=== PATIENT | male | born 1940 | race Caucasian/White ===

== ENCOUNTER 2017-01-01 12:41 | Outpatient (CLI) | payer MEDICARE ==
[~2017-01-01] VITALS: Ht 167.6 cm; Wt 75.8 kg
[2017-01-01] VITALS (8 sets, daily range): BP systolic 125–155; BP diastolic 66–79; PULSE 62–84; RESP 16–18; TEMP 97.1–97.4; O2SAT 94–97; Ht 167.6 cm; Wt 75.8 kg
[~2017-01-01 12:41] MED LIST: ACET-2890 PO; ALBU8.5H5 IH; AMIO200T2 PO; ANTI1CAP2 PO; BUME1TAB17 PO; CARB1TAB PO; CARV6.252 PO; DABI150C PO; GABA-338 PO; LISI2.5T2 PO; METF-200 PO; POTA-81 PO; ROPI2TAB6 PO; VITA1TAB29 PO
[2017-01-01] MEDS ORDERED: IRON DEXTRAN 100mg/2ml INJECTION IV ONE (13:00)
[2017-01-01] MEDS ORDERED: NORMAL SALINE 500 ML IV SCH (13:30)
[2017-01-01] MEDS ORDERED: IRON DEXTRAN IV ONE (14:30)
[2017-01-01] MEDS ORDERED: NORMAL SALINE IV ONE (14:30)
[2017-01-06] MEDS ORDERED: CARV6.252 PO (12:01)
[2017-01-06] MEDS ORDERED: TRAM50TA4 PO ×2 (12:01→14:32)
[2017-01-06] MEDS ORDERED: METH750T3 PO ×2 (12:01→14:27)
[2017-01-06] MEDS ORDERED: B2/V1TAB (12:01)
[2017-01-06] MEDS ORDERED: CELE200C PO ×2 (12:01→14:27)
[2017-01-06] MEDS ORDERED: SILV20CR2 TOP (12:01)
[2017-01-06] MEDS ORDERED: DABI150C PO (12:01)
[2017-01-06] MEDS ORDERED: ALBU18HF2 ORAL INH (12:01)
[2017-01-06] MEDS ORDERED: AMIO200T2 PO (12:01)
[2017-01-17] MEDS ORDERED: AMIO200T7 PO (11:06)
[2017-01-17] MEDS ORDERED: CARV12.5 PO (11:10)
[2017-01-17] MEDS ORDERED: POTA-81 PO (11:12)
[2017-01-17] MEDS ORDERED: SACU1TAB PO (11:15)
== END 2017-01-01 19:36 | disposition home or self-care (01) ==
LOC: INF.THER 12:41
PROVIDERS: ATTEND Internal Medicine
DX: D50.9 Iron deficiency anemia, unspecified (principal)
CPT/HCPCS: 96365; 96366; 96375; J1750

== ENCOUNTER 2017-01-03 08:09 | Day surgery (SDC) | payer MEDICARE ==
[~2017-01-03] VITALS: Ht 160 cm; Wt 75.9 kg
[2017-01-03] VITALS (23 sets, daily range): BP systolic 93–153; BP diastolic 48–85; PULSE 61–90; RESP 16–23; TEMP 97.1–98.2; O2SAT 90–100; Ht 160 cm; Wt 75.9 kg
[~2017-01-03 08:09] MED LIST changes: -AMIO200T2 PO; -CARV6.252 PO; +LIDOCAINE 1% (10mg/ml) 2ml SDV INJ ONE; +LR 1,000 ML IV SCH
--- OUTSIDE RECORDS SUMMARY | 2017-01-03 08:13 | XMS REPORT | Continuity of Care Document ---
Author Author [facility] Organization [facility] Address Unknown Phone Unavailable Support Name Relationship Address Phone ANAND FERMIN DO Caregiver [address] [place] [address] Unavailable ANAND FERMIN DO Caregiver [address] [place] [address] Unavailable BRANDON AVILES Next Of Kin [address] [place] [address] C Insurance Providers Guarantor Zak Aviles Address [address] [place] [address] C Email DENIED 12-28-16 Payer [employer] Policy Number [id number] Subscriber's Name Zak Aviles Relationship 17 Self Advance Directives Directive Response Recorded Date/Time Advanced Directives Type Living Will 02/17/14 1:50pm Ordered Resuscitation Status Full Code, unverified 02/17/14 2:28pm Resuscitation Documents on File No 02/17/14 1:50pm Problems Active Problems Medical Problem Onset Date Status Atrial fibrillation Unknown Chronic Atrial fibrillation and flutter Unknown Acute Atrial flutter with rapid ventricular response Unknown Acute Bacteremia due to Escherichia coli Unknown Acute CAD (coronary artery disease) Unknown Chronic CHF (congestive heart failure) Unknown Chronic CHF exacerbation Unknown Acute COPD (chronic obstructive pulmonary disease) Unknown Chronic Cardiomyopathy Unknown Chronic Cellulitis, leg Unknown Acute Diabetes Unknown Chronic Essential hypertension Unknown Chronic Hypertension Unknown Chronic Left inguinal hernia Unknown Acute Left inguinal hernia Unknown Acute Mixed hyperlipidemia Unknown Chronic Near syncope Unknown Acute Non-ischemic cardiomyopathy Unknown Chronic Parkinson's disease Unknown Paroxysmal atrial fibrillation Unknown Chronic Sigmoid diverticulosis Unknown Chronic Ventricular tachyarrhythmia Unknown Acute Past Problems Medical Problem Onset Date Anemia Unknown Dehydration Unknown Hypokalemia Unknown Medications Current Home Medications Medication Dose Units Route Directions Days Qty Instructions Start Date Acetaminophen 650 Mg Tablet.er 650 Mg Oral Twice A Day as needed for Pain 11/23/15 Albuterol Sulfate (Proair Hfa) 8.5 Gm Aerosol 2 Puff Inhalation Every 6 Hours as needed for Shortness Of Air 01/09/14 Antiox#10/Om3/Dha/Epa/Lut/Zeax (I-Caps With Lutein-[place] 3 Sfg) 1 Each Capsule 1 Tab Oral Twice A Day 02/16/15 B Complex With Vitamin C (Super B Complex-Vitamin C) 1 Each Tablet 1 Tab Oral Daily 11/02/15 Bumetanide 1 Mg Tablet 2 Mg Oral Twice A Day 30 Days 03/28/16 Carbidopa/Levodopa (Carbidopa-Levo Er 25-100 Tb) 1 Udtab.sa Tablet.sa 1 Tab Oral Three Times A Day 12/26/11 Dabigatran Etexilate Mesylate (Pradaxa) 150 Mg Capsule 150 Mg Oral Twice A Day 12/26/13 Gabapentin 300 Mg Capsule 300 Mg Oral Three Times A Day 11/02/15 Lisinopril 2.5 Mg Tablet 2.5 Mg Oral Daily 03/24/16 Metformin Hcl 500 Mg Tablet 500 Mg Oral Twice Daily With Meals Potassium Chloride 20 Meq Tablet.er 20 Meq Oral Twice Daily With Meals 30 Days 60 Tablet Take 1 tablet, by mouth, two times a day with meals. 03/28/16 Ropinirole Hcl 2 Mg Tablet 2 Mg Oral Three Times A Day 11/02/15 Past Home Medications Medication Directions Ordered Status Bumetanide 1 Mg Tablet, 1 Mg Oral Twice A Day 11/23/15 Discontinued Calcium Carbonate (Tums) 1 Tab.chew Tab.chew, 1 Tab.chew Oral As Needed 05/04 Discontinued Carvedilol 3.125 Mg Tablet, 3.125 Mg Oral Twice Daily With Meals 11/02/15 Discontinued Cefdinir 300 Mg Capsule, 300 Mg Oral Twice A Day 03/28/16 Discontinued Diphenhydramine Hcl (Benadryl) 25 Mg Capsule, 25 Mg Oral Daily 05/04/10 Discontinued Glyburide 5 Mg Tablet, 5 Mg Oral Twice A Day 05/04/10 Discontinued Potassium Chloride (Klor-Con M20) 20 Meq Tablet, 40 Meq Oral Twice Daily With Meals 11/02/15 Discontinued Sitagliptin Phosphate (Januvia) 100 Mg Tablet, 100 Mg Oral 1200 12/26/13 Discontinued Venlafaxine Hcl (Effexor Xr) 37.5 Mg Cap.sr.24h, 37.5 Mg Oral Daily 05/04/10 Discontinued Vision Formula , Daily 05/04/10 Discontinued Social History Social History Problem Response Recorded Date/Time Onset Date Status Chewing Tobacco Status Y 5-11-14 03/05/2014 10:23am Not Applicable Not Applicable Hx Substance Use No 05/04/2016 1:46am Not Applicable Not Applicable Hx Alcohol Use No 05/04/2016 1:46am Not Applicable Not Applicable Has the pt used tobacco in the last 12 months Yes 01/01/2017 3:55pm Not Applicable Not Applicable Tobacco Usage none 03/25/2016 12:37pm Not Applicable Not Applicable Query Response Start Date Stop Date Smoking Status Former smoker Hospital Discharge Instructions No hospital discharge instructions. Plan of Care Discharge Date 01/01/17 7:36pm Prescriptions See Medication Section Functional Status No functional status results. Allergies, Adverse Reactions, Alerts Allergen Type Severity Reaction Status Last Updated Aspirin Adverse Reaction Unknown CAUSES GI BLEEDING Active 01/02/17 Prednisone Allergy Unknown ANXIOUS Active 01/02/17 Ciprofloxacin Adverse Reaction Unknown HYPERACTIVE Active 01/02/17 Dicyclomine Adverse Reaction Severe "MAKES ME VERY NERVOUS AND JITTERY" Active 01/02/17 Immunizations Query Response on File Recorded Date/Time Hx Influenza Vaccination N WILL NOT TAKE THIS VACCINE 01/01/17 3:55pm Hx Pneumococcal Vaccination Y PNEUMONIA VACCINE 11/16 DURING LAST VISIT THIS MONTH 01/01/17 3:55pm Hx Influenza Vaccination N WILL NOT TAKE THIS VACCINE 01/01/17 3:55pm Vital Signs Acute Vital Signs Vital Response Date/Time Temperature (Fahrenheit) 97.3 deg F (96.8 - 99.1) 01/01/2017 5:00pm Temperature (Calculated Celsius) 36.96112 degrees C (36.0 - 37.3) 01/01/2017 5:00pm Pulse Rate (adult) 84 bpm (60 - 100) 01/01/2017 7:02pm Respiratory Rate 16 breaths/min (10 - 20) 01/01/2017 7:02pm O2 Sat by Pulse Oximetry 94 % (90 - 100) 01/01/2017 7:02pm Oxygen Delivery Method Room Air 01/01/2017 7:02pm Blood Pressure 155/79 mm Hg 01/01/2017 7:02pm Blood Pressure Source Automatic Cuff 01/01/2017 7:02pm Height (Feet) 5 feet 01/01/2017 1:20pm Height (Inches) 6.00 inches 01/01/2017 1:20pm Weight (Kilograms) 75.750 kg 01/01/2017 1:20pm Body Mass Index (BMI) 27.0 01/01/2017 1:20pm Results No known relevant diagnostic tests, laboratory data and/or discharge summary. Procedures No known history of procedures. Encounters Encounter Location Arrival/Admit Date Discharge/Depart Date Attending Provider Departed [facility] 01/01/17 12:41pm 01/01/17 7:36pm ANAND FERMIN DO
--- OUTSIDE RECORDS SUMMARY | 2017-01-03 08:13 | XMS REPORT | Continuity of Care Document ---
Author Author [facility] Organization [facility] Address Unknown Phone Unavailable Support Name Relationship Address Phone HARITHA ZELAYA MD Caregiver [facility] [address] [place] [address] [address] [place] [address] ANAND FERMIN DO Caregiver [facility] [address] [place] [address] [address] [place] [phone] BRANDON AVILES Next Of Kin [address] [place], [place] [id number] C Insurance Providers Payer Name Policy Number Subscriber Name Relationship Medicare [id number] Zak Aviles 17 Self UMR [id number] Zak Aviles 18 Self Advance Directives Directive Response Recorded Date/Time Advanced Directives Type Living Will 02/17/14 1:50pm Ordered Resuscitation Status Full Code, unverified 02/17/14 2:28pm Resuscitation Documents on File No 02/17/14 1:50pm Problems Medical Problems Problem Onset Date Status Left inguinal hernia Unknown Active Left inguinal hernia Unknown Active Medications Medication Dose Route Sig Days/Qty Instructions Order Date Discontinued Date Status Acetaminophen 1,000 Mg PO Q6H PRN 05/04/10 Active Diphenhydramine Hcl 25 Mg PO DAILY 05/04/10 12/26/11 Discontinued Venlafaxine Hcl 37.5 Mg PO DAILY 05/04/10 12/26/11 Discontinued Citalopram Hydrobromide 40 Mg PO BEDTIME 05/04/10 Active Glyburide 5 Mg PO TWICE A DAY 05/04/10 12/26/11 Discontinued Lisinopril 20 Mg PO DAILY 05/04/10 Active Pravastatin Sodium 80 Mg PO DAILY 05/04/10 Active [Vision Formula] DAILY 05/04/10 12/26/11 Discontinued Calcium Carbonate 1 Tab.chew PO NEEDED 05/04/10 12/26/11 Discontinued Metformin Hcl 500 Mg PO TWICE A DAY 12/26/11 Active Carbidopa/Levodopa 1 Udtab.sa PO TWICE A DAY 12/26/11 Active Dabigatran Etexilate Mesylate 150 Mg PO BEDTIME 12/26/13 Active Sitagliptin Phosphate 100 Mg PO 1200 12/26/13 02/18/14 Discontinued Roflumilast 500 Mcg PO 1200 12/26/13 Active Vitamin B Complex 1 Cap PO BEDTIME 12/26/13 Active Dextromethorphan Hbr/Chlor-Mal 1 Tab PO THREE TIMES A DAY 12/26/13 Active Labetalol Hcl 100 Mg PO TWICE A DAY 12/26/13 Active Ropinirole Hcl 2 Mg PO THREE TIMES A DAY 12/26/13 Active Tramadol Hcl 50 Mg PO NEEDED 12/26/13 Active Albuterol Sulfate 2 Puff IH QID PRN 25 Qty 01/09/14 Active B2/Vit A,C & E/Lut/Zeaxanth/Mn 1 Tab.sa PO TWICE A DAY 01/09/14 Active Amlodipine Besylate 10 Mg PO DAILY 03/03/14 Active Social History Social History Problem Response Recorded Date/Time Smoking Status Former smoker 03/04/2014 9:22am Chewing Tobacco Status Yes 03/04/2014 9:22am Hx Substance Use No 03/04/2014 9:22am Hx Alcohol Use Y QUIT 25 YRS AGO 03/04/2014 9:22am Has the pt used tobacco in the last 12 months No 03/04/2014 9:22am Hospital Discharge Instructions No hospital discharge instructions. Plan of Care No plan of care. Functional Status No functional status results. Allergies, Adverse Reactions, Alerts Allergen Type Severity Reaction Status Last Updated Aspirin Adverse Reaction Unknown CAUSES GI BLEEDING Active 05/03/10 Prednisone Allergy Unknown ANXIOUS Active 01/09/14 Ciprofloxacin Adverse Reaction Unknown HYPERACTIVE Active 01/09/14 Dicyclomine Adverse Reaction Severe "MAKES ME VERY NERVOUS AND JITTERY" Active 05/04/10 Immunizations Name Given Type Hx Influenza Vaccination N NEVER GETS IT- GETS SICK Historical Hx Pneumococcal Vaccination Y LAST YEAR Historical Hx Influenza Vaccination N NEVER GETS IT- GETS SICK Historical Vital Signs Acute Vital Signs Vital Response Date/Time Temperature (Fahrenheit) 97.0 deg F (96.8 - 99.1) Temperature (Calculated Celsius) 36.52712 degrees C (36.0 - 37.3) Temperature Source Temporal Pulse Rate (adult) 75 bpm (60 - 100) Respiratory Rate 16 breaths/min (10 - 20) O2 Sat by Pulse Oximetry 96 % (90 - 100) Blood Pressure 126/56 mm Hg Blood Pressure Source Automatic Cuff Height 5 ft 6 in Weight 154 lb Body Mass Index 24.0 kg/m^2 Results Test Source Date Result Interp. Ref. Range Comments Protein Electrophoresis Comment March 03, 2014 10:15am - - IgM kappa monoclonal peak identified by immunofixation. Serum Monoclonal Protein March 03, 2014 10:15am 0.4 g/dL PH - Gamma Globulins (%) March 03, 2014 10:15am 14.5 % - Immunoelectrophoresis, no IMQ performed at [facility], [facility] [place] [facility] [place] [address] Product Safety Technical Assistant Emiliana Ray MD Pddz-9-Tnrmmzfm (%) March 03, 2014 10:15am 4.3 % - Uzau-7-Wddwkjdc (%) March 03, 2014 10:15am 6.6 % - Fnkpd-2-Doqkwtqme (%) March 03, 2014 10:15am 12.5 % - Zwxcm-4-Tqqfibbrf (%) March 03, 2014 10:15am 5.1 % - Albumin % (PEP) March 03, 2014 10:15am 57.0 % - Gamma Globulins March 03, 2014 10:15am 0.9 g/dL - Dnkh-5-Siwbovgl March 03, 2014 10:15am 0.3 g/dL - Epdq-3-Cvygjdhn March 03, 2014 10:15am 0.4 g/dL - Zylwc-3-Hafgrrjzt March 03, 2014 10:15am 0.7 g/dL - Msxqv-5-Aknvkpdgv March 03, 2014 10:15am 0.3 g/dL - Albumin (PEP) March 03, 2014 10:15am 3.4 g/dL - Alanine Aminotransferase (ALT/SGPT) January 21, 2014 1:50pm 20 U/L L 21-72 Albumin January 21, 2014 1:50pm 3.7 G/DL N 3.5-5.0 Albumin/Globulin Ratio January 21, 2014 1:50pm 1.2 RATIO N 1.1-2.2 Alkaline Phosphatase January 21, 2014 1:50pm 114 U/L N 38-126 Anion Gap March 04, 2014 9:45am 6 MEQ/L N 5-15 Aspartate Amino Transf (AST/SGOT) January 21, 2014 1:50pm 25 U/L N 17-59 BUN/Creatinine Ratio March 04, 2014 9:45am 22 RATIO N 6-26 Basophils # (Auto) March 04, 2014 9:45am 0.0 T/MM3 N 0-0.2 COMMENT [facility] WILL CALL Basophils (%) (Auto) March 04, 2014 9:45am 0.5 % N 0-2 COMMENT [facility] WILL CALL Blood Urea Nitrogen March 04, 2014 9:45am 13.0 MG/DL N 9-20 Calcium Level March 04, 2014 9:45am 8.4 MG/DL N 8.4-10.2 Calculated Osmolality March 04, 2014 9:45am 273 MOSM/KG N 261-280 Carbon Dioxide Level March 04, 2014 9:45am 32 MEQ/L H 22-30 Chemistry Specimen Hemolysis March 04, 2014 9:45am < 15 0-25 0-25: No Hemolysis.26-70: Slight Hemolysis - can falsely elevate K and Urine Protein. 71-285: Moderate Hemolysis - can falsely elevate K, Troponin I, CA 19-9, PTH, CSF GLucose, and Urine Protein, and can falsely decrease Phenytoin. 286-999: Gross Hemolysis - can falsely elevate K, Troponin I, CA 19-9, PTH, CSF Glucose, and Urine Protine, and can falsely decrease Phenytoin. Recommend specimen recollection. Chloride Level March 04, 2014 9:45am 104 MEQ/L N 98-107 Cholesterol Level October 12, 2008 10:36am 170 MG/DL N 132-199 Cholesterol/HDL Ratio October 12, 2008 10:36am 5.0 RATIO N 0-5.0 Creatinine March 04, 2014 9:45am 0.6 MG/DL L 0.8-1.5 Eosinophils # (Auto) March 04, 2014 9:45am 0.4 T/MM3 N 0-0.5 COMMENT [facility] WILL CALL Eosinophils # (Manual) December 27, 2011 8:50am 0.3 T/MM3 N 0-0.5 COMMENT WILL CALL WHEN PT ADMITTEDCOMMENT WILL CALL WHEN PT IS ADMITTED Eosinophils % (Manual) December 27, 2011 8:50am 4.0 % N 0-4 COMMENT WILL CALL WHEN PT ADMITTEDCOMMENT WILL CALL WHEN PT IS ADMITTED Eosinophils (%) (Auto) March 04, 2014 9:45am 5.6 % H 0-4 COMMENT [facility] WILL CALL Erythrocyte Sedimentation Rate January 21, 2014 1:50pm 36 MM/HR H 0-15 Globulin January 21, 2014 1:50pm 3.0 G/DL N 2.4-3.6 Glomerular Filtration Rate Calc March 04, 2014 9:45am 132 - Glucometer February 18, 2014 7:06am 78 mg/dL N 75-110 Glucose Level March 04, 2014 9:45am 91 MG/DL N 75-110 HDL Cholesterol Direct October 12, 2008 10:36am 32 MG/DL L 40-60 Hematocrit March 04, 2014 9:45am 36.1 % L 41-53 COMMENT [facility] WILL CALL Hemoglobin March 04, 2014 9:45am 11.4 GM/DL L 13.5-17.5 COMMENT [facility] WILL CALL Hemoglobin A1c January 21, 2014 1:50pm 6.2 % N 6-7 <6.0 NON-DIABETIC RANGE6.0-7.0 ADA THERAPEUTIC RANGE >7.0 ACTION SUGGESTED Icterus Index March 04, 2014 9:45am < 2 0-7 Immature Granulocyte # (Auto) March 04, 2014 9:45am 0.01 T/MM3 N 0.00- 0.03 COMMENT [facility] WILL CALL Immature Granulocyte % (Auto) March 04, 2014 9:45am 0.1 % N 0.0-0.5 COMMENT [facility] WILL CALL Immunoglobulin A March 03, 2014 10:15am 120.28 MG/DL N 70-400 Immunoglobulin G March 03, 2014 10:15am 726.83 MG/DL N 700-1600 Immunoglobulin M March 03, 2014 10:15am 436.08 MG/DL H 40-230 LDL Cholesterol, Calculated October 12, 2008 10:36am 91.2 N 66-159 Lab Scanned Report March 03, 2014 11:28am LAB TEST FORM REQUEST - Lymphocytes # (Auto) March 04, 2014 9:45am 1.4 T/MM3 N 1-4.8 COMMENT [facility] WILL CALL Lymphocytes # (Manual) December 27, 2011 8:50am 2.2 T/MM3 N 1-4.8 COMMENT WILL CALL WHEN PT ADMITTEDCOMMENT WILL CALL WHEN PT IS ADMITTED Lymphocytes % (Manual) December 27, 2011 8:50am 26.0 % N 23-45 COMMENT WILL CALL WHEN PT ADMITTEDCOMMENT WILL CALL WHEN PT IS ADMITTED Lymphocytes (%) (Auto) March 04, 2014 9:45am 19.3 % L 23-45 COMMENT [facility] WILL CALL Mean Corpuscular Hemoglobin March 04, 2014 9:45am 29.5 UUG N 26-34 COMMENT [facility] WILL CALL Mean Corpuscular Hemoglobin Concent March 04, 2014 9:45am 31.6 GM/DL N 31 -37 COMMENT [facility] WILL CALL Mean Corpuscular Volume March 04, 2014 9:45am 93.3 UM3 N 80-100 COMMENT [facility] WILL CALL Mean Platelet Volume March 04, 2014 9:45am 10.1 UM3 N 9.4-12.4 COMMENT [facility] WILL CALL Monocytes # (Auto) March 04, 2014 9:45am 0.7 T/MM3 N 0-0.8 COMMENT [facility] WILL CALL Monocytes # (Manual) December 27, 2011 8:50am 1.2 T/MM3 H 0-0.8 COMMENT WILL CALL WHEN PT ADMITTEDCOMMENT WILL CALL WHEN PT IS ADMITTED Monocytes % (Manual) December 27, 2011 8:50am 15.0 % H 0-9.0 COMMENT WILL CALL WHEN PT ADMITTEDCOMMENT WILL CALL WHEN PT IS ADMITTED Monocytes (%) (Auto) March 04, 2014 9:45am 9.4 % H 0-9.0 COMMENT [facility] WILL CALL Neutrophils # (Auto) March 04, 2014 9:45am 4.8 T/MM3 N 1.8-7.7 COMMENT [facility] WILL CALL Neutrophils # (Manual) December 27, 2011 8:50am 4.6 T/MM3 N 1.8-7.7 COMMENT WILL CALL WHEN PT ADMITTEDCOMMENT WILL CALL WHEN PT IS ADMITTED Neutrophils % (Manual) December 27, 2011 8:50am 55.0 % N 33-66 COMMENT WILL CALL WHEN PT ADMITTEDCOMMENT WILL CALL WHEN PT IS ADMITTED Neutrophils (%) (Auto) March 04, 2014 9:45am 65.1 % N 33-66 COMMENT [facility] WILL CALL Platelet Count March 04, 2014 9:45am 257 T/MM3 N 130-400 COMMENT [facility] WILL CALL Potassium Level March 04, 2014 9:45am 3.8 MEQ/L N 3.6-5 Prealbumin January 21, 2014 1:50pm 22.6 MG/DL N 17.6-36.0 Prothromb Time International Ratio January 12, 2014 10:50am 1.06 N 0.86- 1.10 THERAPUTIC RANGE=2.00-3.00 FOR ANTI-THROMBOSIS THERAPUTIC RANGE=2.50- 3.50 FOR IMPLANTED VALVE RDW Standard Deviation March 04, 2014 9:45am 44.0 FL N 36.9-50.2 COMMENT [facility] WILL CALL Red Blood Count March 04, 2014 9:45am 3.87 M/MM3 L 4.50-5.90 COMMENT [facility] WILL CALL Serum Total Protein March 03, 2014 10:15am 5.9 g/dL L - Immunoelectrophoresis, no IMQ performed at [facility], [facility] [place] [address] Product Safety Technical Assistant Emiliana Ray MD Sodium Level March 04, 2014 9:45am 142 MEQ/L N 134-144 Thyroid Stimulating Hormone (TSH) January 21, 2014 1:50pm 0.45 MIU/L L 0.47- 4.68 Total Bilirubin January 21, 2014 1:50pm 0.10 MG/DL L 0.20-1.30 Total Protein January 21, 2014 1:50pm 6.7 G/DL N 6.3-8.2 Triglycerides Level October 12, 2008 10:36am 234 MG/DL H 40-160 Turbidity March 04, 2014 9:45am < 20 0-20 Urinalysis Comment December 26, 2013 12:35pm Microscopic not ind. - Has specimen been collected/obtained? Y Urine Bilirubin December 26, 2013 12:35pm Negative - Has specimen been collected/obtained? Y Urine Blood December 26, 2013 12:35pm Negative - Has specimen been collected/obtained? Y Urine Collection Type December 26, 2013 12:35pm Voided-not cc-midstr - Has specimen been collected/obtained? Y Urine Color December 26, 2013 12:35pm Yellow - Has specimen been collected/obtained? Y Urine Glucose (UA) December 26, 2013 12:35pm 1+ H - Has specimen been collected/obtained? Y Urine Ketones December 26, 2013 12:35pm Trace H - Has specimen been collected/obtained? Y Urine Leukocyte Esterase December 26, 2013 12:35pm Negative - Has specimen been collected/obtained? Y Urine Nitrite December 26, 2013 12:35pm Negative - Has specimen been collected/obtained? Y Urine Protein December 26, 2013 12:35pm Negative - Has specimen been collected/obtained? Y Urine Specific [place] December 26, 2013 12:35pm 1.015 - Has specimen been collected/obtained? Y Urine Turbidity December 26, 2013 12:35pm Sl cloudy - Has specimen been collected/obtained? Y Urine Urobilinogen December 26, 2013 12:35pm 0.2 EU/DL - Has specimen been collected/obtained? Y Urine pH December 26, 2013 12:35pm 8.0 - Has specimen been collected/ obtained? Y VLDL Cholesterol October 12, 2008 10:36am 46.8 MG/DL H 0-28 White Blood Count March 04, 2014 9:45am 7.3 T/MM3 N 4.5-11.0 COMMENT [facility] WILL CALL Procedures Procedure Status Date Provider(s) PRP I/LIZ INIT REDUC >5 YR completed 01/12/14 CASSIDY CABRERA MD, FACS, CWS EGD BIOPSY SINGLE/MULTIPLE completed 02/18/14 ANAND FERMIN DO Colonoscopy completed 03/04/14 ANAND FERMIN DO Encounters Encounter Location Date/Time Registered Clinic [facility] 03/03/14 10:04am Registered Clinic [facility] 02/25/14 6:24am Registered Clinic [facility] 01/21/14 1:44pm Departed Emergency Room [facility] 12/26/13 2:04pm
--- OUTSIDE RECORDS SUMMARY | 2017-01-03 08:13 | XMS REPORT | Summary of Care ---
Author Author Jerman Franco M.D. Organization Unknown Address [address] [place] [address] [place] [address] Phone Unavailable Care Team Providers Care Dirt Contractor Name Role Phone Jerman Franco M.D. Unavailable Unavailable Diomedes Aaron M.D. 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 Periodic limb movement sleep disorder (327.51, G47.61) Status: Active Restless leg (333.94, G25.81) Status: Active COPD (chronic obstructive pulmonary disease) (496, J44.9) Status: Active CHF (congestive heart failure) (428.0, I50.9) Status: Active Malignant neoplasm of prostate (185, C61) Status: Active H/O therapeutic radiation (V15.3, Z92.3) Status: Active Parkinson disease, symptomatic (332.0, G20) Status: Active Benign prostatic hyperplasia with lower urinary tract symptoms (600.01, N40.1) Status: Active Medications Name Dates Details Amlodipine Besy-Benazepril HCl - 10-20 MG Oral Capsule Brock Aaron M.D. Start 11-Dec-2008 Active MetFORMIN HCl - 500 MG Oral Tablet * Refills: 0 Brock Aaron M.D. Start 11-Dec-2008 Active Budesonide 0.5 MG/2ML Inhalation Suspension USE 1 UNIT DOSE VIA NEBULIZER TWO TIMES A DAY * Quantity: 60 Refills: 12 Galen Rivera, Brock Avery Start 11-Dec-2008 Active Mucinex DM 30-600 MG Oral Tablet Extended Release 12 Hour TAKE 1 TO 2 TABLETS EVERY 12 HOURS. * Refills: 0 Brock Aaron M.D. Start 13-Dec-2010 Active Budesonide 0.25 MG/2ML Inhalation Suspension * Quantity: 60 Refills: 12 Brock Aaron M.D. * Start 13-Dec-2010 Active ROPINIRole HCl - 2 MG Oral Tablet TAKE 1 TABLET 3 TIMES DAILY. * Refills: 0 * Start 10-May-2016 Active Gabapentin 300 MG Oral Capsule TAKE 1 CAPSULE 3 TIMES DAILY. * Refills: 0 * Start 10-May-2016 Active Carbidopa-Levodopa 25-100 MG Oral Tablet TAKE 1 TABLET 3 TIMES DAILY. * Refills: 0 * Start 10-May-2016 Active Albuterol Sulfate ER 8 MG Oral Tablet Extended Release 12 Hour TAKE 1 TABLET EVERY 12 HOURS DAILY. * Refills: 0 * Start 10-May-2016 Active Lisinopril 2.5 MG Oral Tablet TAKE 1 TABLET DAILY. * Refills: 0 * Start 10-May-2016 Active Bumetanide 1 MG Oral Tablet TAKE 1 TABLET TWICE DAILY. * Refills: 0 * Start 10-May-2016 Active Carvedilol 3.125 MG Oral Tablet TAKE 1 TABLET TWICE DAILY WITH MEALS. * Refills: 0 * Start 10-May-2016 Active Pradaxa 75 MG Oral Capsule TAKE 1 CAPSULE DAILY. * Refills: 0 * Start 10-May-2016 Active Vitamin B Complex Oral Tablet TAKE 1 TABLET DAILY. * Refills: 0 * Start 10-May-2016 Active ICaps Oral Capsule TAKE 1 CAPSULE DAILY. * Refills: 0 * Start 10-May-2016 Active Arthritis Pain 650 MG Oral Tablet Extended Release Take 2 tablets as needed for pain * Refills: 0 * Start 10-May-2016 Active Allergies and Adverse Reactions Name Dates Details dicyclomine (Allergy) Status: Active metformin (Allergy) Status: Active predniSONE (Allergy) Status: Active Quinolones (Allergy) Status: Active Tetracyclines (Allergy) Status: Active Past Medical History Name Dates Details History of allergic rhinitis (V12.69, Z87.09) Status: Resolved History of atrial fibrillation (V12.59, Z86.79) Status: Resolved History of Bladder neck obstruction (596.0, N32.0) Status: Resolved History of COPD with asthma (493.20, J44.9) Status: Resolved History of dysthymia (V11.8, Z86.59) Status: Resolved History of Erectile dysfunction (607.84, N52.9) Status: Resolved History of esophageal reflux (V12.79, Z87.19) Status: Resolved History of essential hypertension (V12.59, Z86.79) Status: Resolved History of fatigue (V13.89, Z87.898) Status: Resolved History of Fluid retention (276.69, E87.70) Status: Resolved History of hematuria (V13.09, Z87.448) Status: Resolved History of hyperlipidemia (V12.29, Z86.39) Status: Resolved History of Nocturia (788.43, R35.1) Status: Resolved History of osteoarthritis (V13.4, Z87.39) Status: Resolved History of Polyuria (788.42, R35.8) Status: Resolved History of type 2 diabetes mellitus (V12.29, Z86.39) Status: Resolved History of urinary frequency (V13.09, Z87.898) Status: Resolved Procedures Procedure Dates Details History of Repair Of Paraesophageal Hiatus Hernia History of Knee Surgery History of Foot Surgery History of Biopsy Of The Prostate Needle History of Transurethral Resection Of Prostate (TURP) PSA ( PROSTATE SPECIFIC ANTIGEN) 3100 Ordered: 10-May-2016 Immunization Name Dates Details Immunizations not documented Family History Name Dates Details Family history of Asthma (V17.5) Status: Active Social History Name Dates Details - Status: Name Dates Details Former smoker Vital Signs Date Test Result Details 10-May-2016 08:55 BP Systolic 176 mm[Hg] Status: Comments: Location: ; Position: BP Diastolic 64 mm[Hg] Status: Comments: Location: ; Position: Heart Rate 105 /min Status: Comments: Location: ; Height 66 in Status: Weight 160 lb Status: Body Mass Index Calculated 25.82 kg/m2 Status: Body Surface Area Calculated 1.82 m2 Status: Results Date Description Value Details Results not documented Plan of Care Name Dates Details Planned Observations Planned Goals not documented Planned Encounters Appointment; Provider: Jerman Franco M.D. On 16-May-2017 09:00 Interventions Provided Medication Changes* Citalopram Hydrobromide 40 MG Oral Tablet - Stop * ClonazePAM 1 MG Oral Tablet - Stop * GlyBURIDE 5 MG Oral Tablet - Stop * Meloxicam 15 MG Oral Tablet - Stop * Naproxen 500 MG Oral Tablet - Stop Labs/Procedures/Imaging* PSA ( PROSTATE SPECIFIC ANTIGEN) 3100; To be Done: 10 May 2016 Instructions Name Dates Details Instructions not documented Encounters Appointment; Jerman Frnaco M.D. Encounter Diagnosis: Problem not documented On 10-May-2016 08:45
--- OUTSIDE RECORDS SUMMARY | 2017-01-03 08:13 | XMS REPORT | Continuity of Care Document ---
Author Author [facility] Organization [facility] Address Unknown Phone Unavailable Support Name Relationship Address Phone JULIANA BLACK MD Caregiver [address] [place] [address] [place] [address] Unavailable JULIANA BLACK MD Caregiver [address] [place] [address] [place] [address] Unavailable HARITHA ZELAYA MD Caregiver [address] [place] [address] [place] [address] Unavailable TATIANA CARVAJAL DO Caregiver [address] [place] [address] [place] [address] Unavailable BRANDON AVILES Next Of Kin [address] [place] [address] C Insurance Providers Guarantor Zak Aviles Address [address] [place] [address] C Email DENIED/NO TO PT [facility] Payer [employer] Policy Number [id number] Subscriber's Name Zak Aviles Relationship 17 Self Advance Directives Directive Response Recorded Date/Time Advanced Directives Type Living Will 02/17/14 1:50pm Ordered Resuscitation Status Full Code, unverified 02/17/14 2:28pm Resuscitation Documents on File No 02/17/14 1:50pm DPOA for Healthcare Only No 03/24/16 7:04pm Living Will Yes 03/24/16 7:04pm Problems Active Problems Medical Problem Onset Date [...] disease Unknown Paroxysmal atrial fibrillation Unknown Chronic Ventricular tachyarrhythmia Unknown Acute Past Problems Medical Problem Onset Date Anemia Unknown Hypokalemia Unknown Medications Current Home Medications Medication Dose Units Route Directions Days Qty Instructions Start Date Acetaminophen 650 Mg Tablet.er 650 Mg Oral Twice A Day as needed for Pain 11/23/15 Albuterol Sulfate (Proair Hfa) 8.5 Gm Aerosol 2 Puff Inhalation Every 6 Hours as needed for Shortness Of Air 01/09/14 Amiodarone Hcl 200 Mg Tablet 200 Mg Oral Daily 03/24/16 Antiox#10/Om3/Dha/Epa/Lut/Zeax (I-Caps With Lutein-[place] 3 Sfg) 1 Each Capsule 1 Tab Oral Twice A Day 02/16/15 B Complex With Vitamin C (Super B Complex-Vitamin C) 1 Each Tablet 1 Tab Oral Daily 11/02/15 Bumetanide 1 Mg Tablet 2 Mg Oral Twice A Day 30 Days 03/28/16 Carbidopa/Levodopa (Carbidopa-Levo Er 25-100 Tb) 1 Udtab.sa Tablet.sa 1 Tab Oral Three Times A Day 12/26/11 Carvedilol 6.25 Mg Tablet 6.25 Mg Oral Twice A Day 11/23/15 Cefdinir 300 Mg Capsule 300 Mg Oral Twice A Day 7 Days 14 Capsule Dabigatran Etexilate Mesylate (Pradaxa) 150 Mg Capsule [...] Oral Twice Daily With Meals 11/02/15 Discontinued Diphenhydramine Hcl (Benadryl) 25 Mg Capsule, [...] Onset Date Status Chewing Tobacco Status Y 01-11-14 03/05/2014 10:23am Not Applicable Not Applicable Hx Substance Use No 03/24/2016 4:00pm Not Applicable Not Applicable Hx Alcohol Use No 03/24/2016 4:00pm Not Applicable Not Applicable Has the pt used tobacco in the last 12 months Yes 03/24/2016 7:06pm Not Applicable Not Applicable Tobacco Usage none 03/25/2016 12:37pm Not Applicable Not Applicable Query Response Start Date Stop Date Smoking Status Former smoker Hospital Discharge Instructions Instructions: Care Instructions: Reason for Hospitalization: Weakness, hypokalemia I was in the hospital because (patient own words): shaking, falling down, confused Discharge Diet: regular, fluid restriction 1500 cc/day Discharge Activity: as tolerated Follow Up Appointments: [address] Zelaya 04/04 1:[address] Hinojosa 04/25 12:00 Pending Lab / Results: No Pending Lab Patient Instructions: n/a Wound/Incision Care: n/a Durable Medical Equipment: n/a Notify Physician If: worsening weakness, fever > 101 degrees, altered mental status General Information: n/a Condition at time of discharge: Good Plan of Care Discharge Date 03/28/16 3:40pm Disposition 01 DISCHARGED HOME, SELF-CARE Instructions/Education Provided [facility] Congestive Heart Failure Anemia Prescriptions See Medication Section Care Plan and Goals See Discharge Instructions Section Functional Status Query Response Date Recorded Mobility Status Ambulatory w/assist March 28, 2016 3:13pm Assistive Devices Cane March 28, 2016 3:13pm Activity Limitations Weakness Fatigue March 28, 2016 3:13pm Feeding Ability Independent March 28, 2016 3:13pm Toileting Ability Assist March 28, 2016 3:13pm Grooming Ability Assist March 28, 2016 3:13pm Dressing Ability Assist March 28, 2016 3:13pm Driving Ability Dependent March 28, 2016 3:13pm Housework Ability Assist March 28, 2016 3:13pm Meal Preparation Ability Assist March 28, 2016 3:13pm Stair Climbing Ability Assist March 28, 2016 3:13pm Ability to complete ADL's impeded by Impaired Mobility March 28, 2016 3:13pm Cognitive/Perceptual Impairments Impaired vision Acute confusion March 28, 2016 3:13pm Visual Assistive Devices Glasses With patient March 27, 2016 7:16pm Preferred Method of Learning Demonstration Listening Hands on March 27, 2016 7:16pm Allergies, Adverse Reactions, Alerts Allergen Type Severity Reaction Status Last Updated Aspirin Adverse Reaction Unknown CAUSES GI BLEEDING Active 11/02/15 Prednisone Allergy Unknown ANXIOUS Active 11/02/15 Ciprofloxacin Adverse Reaction Unknown HYPERACTIVE Active 11/02/15 Dicyclomine Adverse Reaction Severe "MAKES ME VERY NERVOUS AND JITTERY" Active 11/02/15 Immunizations Query Response on File Recorded Date/Time Hx Influenza Vaccination N WILL NOT TAKE THIS VACCINE 03/24/16 7:06pm Hx Pneumococcal Vaccination Y PNEUMONIA VACCINE 11/16 DURING LAST VISIT THIS MONTH 03/24/16 7:06pm Hx Influenza Vaccination N WILL NOT TAKE THIS VACCINE 03/24/16 7:06pm Vital Signs Acute Vital Signs Vital Response Date/Time Temperature (Fahrenheit) 96.6 deg F (96.8 - 99.1) 03/28/2016 7:48am Temperature (Calculated Celsius) 35.54407 degrees C (36.0 - 37.3) 03/28/2016 7:48am Pulse Rate (adult) 67 bpm (60 - 100) 03/28/2016 7:48am Respiratory Rate 20 breaths/min (10 - 20) 03/28/2016 7:48am O2 Sat by Pulse Oximetry 95 % (90 - 100) 03/28/2016 7:48am Oxygen Delivery Method Room Air 03/28/2016 7:48am Blood Pressure 140/69 mm Hg 03/28/2016 7:48am Blood Pressure Source Automatic Cuff 03/28/2016 7:48am Height (Feet) 5 feet 03/27/2016 5:17pm Height (Inches) 6.00 inches 03/27/2016 5:17pm Weight (Kilograms) 76.700 kg 03/28/2016 7:48am Body Mass Index (BMI) 28.2 03/24/2016 7:02pm Results Laboratory Results Test Name Result Units Flags Reference Collection Date/Time Result Date/ Time Comments White Blood Count 3.8 T/MM3 D L 4.5-11.0 03/28/2016 5:05am 03/28/2016 5: 27am Red Blood Count 3.39 M/MM3 L 4.50-5.90 03/28/2016 5:05am 03/28/2016 5: 27am Hemoglobin 9.7 GM/DL L 13.5-17.5 03/28/2016 5:05am 03/28/2016 5:27am Hematocrit 32.0 % L 41-53 03/28/2016 5:05am 03/28/2016 5:27am Mean Corpuscular Volume 94.4 UM3 80-100 03/28/2016 5:05am 03/28/2016 5: 27am Mean Corpuscular Hemoglobin 28.6 UUG 26-34 03/28/2016 5:05am 2015 5:27am Mean Corpuscular Hemoglobin Concent 30.3 GM/DL L 31-37 03/28/2016 5:05am 03/28/2016 5:27am RDW Standard Deviation 47.9 FL 36.9-50.2 03/28/2016 5:05am 03/28/2016 5 :27am Platelet Count 187 T/MM3 130-400 03/28/2016 5:05am 03/28/2016 5:27am Mean Platelet Volume 9.8 UM3 9.4-12.4 03/28/2016 5:05am 03/28/2016 5: 27am Neutrophils (%) (Auto) 43.2 % 33-66 03/28/2016 5:05am 03/28/2016 5: 27am Lymphocytes (%) (Auto) 33.9 % 23-45 03/28/2016 5:05am 03/28/2016 5: 27am Monocytes (%) (Auto) 19.7 % H 0-9.0 03/28/2016 5:05am 03/28/2016 5:27am Eosinophils (%) (Auto) 1.9 % 0-4 03/28/2016 5:05am 03/28/2016 5:27am Basophils (%) (Auto) 0.8 % 0-2 03/28/2016 5:05am 03/28/2016 5:27am Immature Granulocyte % (Auto) 0.5 % 0.0-0.5 03/28/2016 5:05am 2015 5:27am Absolute Neutrophils (auto) 1.6 T/MM3 L 1.8-7.7 03/28/2016 5:05am 2015 5:27am Absolute Lymphocytes (auto) 1.3 T/MM3 1-4.8 03/28/2016 5:05am 2015 5:27am Absolute Monocytes (auto) 0.7 T/MM3 0-0.8 03/28/2016 5:05am 03/28/2016 5:27am Absolute Eosinophils (auto) 0.1 T/MM3 0-0.5 03/28/2016 5:05am 2015 5:27am Absolute Basophils (auto) 0.0 T/MM3 0-0.2 03/28/2016 5:05am 03/28/2016 5:27am Absolute Immature Granulocyte (auto 0.02 T/MM3 0.00-0.03 03/28/2016 5: 05am 03/28/2016 5:27am Icterus Index < 2 0-7 03/28/2016 5:05am 03/28/2016 5:29am Chemistry Specimen Hemolysis < 15 0-25 03/28/2016 5:0503/28/2016 5 :29am 0-25: Specimen Exhibited No Hemolysis. Turbidity < 20 0-20 03/28/2016 5:05am 03/28/2016 5:29am Sodium Level 142 MEQ/L 134-144 03/28/2016 5:05am 03/28/2016 5:29am Potassium Level 4.0 MEQ/L 3.6-5 03/28/2016 5:05am 03/28/2016 5:29am Chloride Level 98 MEQ/L 98-107 03/28/2016 5:05am 03/28/2016 5:29am Carbon Dioxide Level 33 MEQ/L H 22-30 03/28/2016 5:05am 03/28/2016 5: 29am Anion Gap 11 MEQ/L 5-15 03/28/2016 5:05am 03/28/2016 5:29am Blood Urea Nitrogen 15.0 MG/DL 9-20 03/28/2016 5:0503/28/2016 5: 29am Creatinine 0.9 MG/DL 0.8-1.5 03/28/2016 5:0503/28/2016 5:29am BUN/Creatinine Ratio 17 RATIO 6-26 03/28/2016 5:0503/28/2016 5:29am Glomerular Filtration Rate Calc 82 03/28/2016 5:0503/28/2016 5: 29am Glucose Level 135 MG/DL H 75-110 03/28/2016 5:0503/28/2016 5:29am Calculated Osmolality 276 MOSM/KG 261-280 03/28/2016 5:0503/28/2016 5:29am Calcium Level 8.3 MG/DL L 8.4-10.2 03/28/2016 5:0503/28/2016 5:29am Total Bilirubin 0.40 MG/DL 0.20-1.30 03/25/2016 4:42am 03/25/2016 5: 28am Alkaline Phosphatase 127 U/L H 38-126 03/25/2016 4:42am 03/25/2016 5: 28am Total Protein 6.1 G/DL L 6.3-8.2 03/25/2016 4:42am 03/25/2016 5:28am Albumin 3.1 G/DL L 3.5-5.0 03/25/2016 4:42am 03/25/2016 5:28am Globulin 3.0 G/DL 2.4-3.6 03/25/2016 4:42am 03/25/2016 5:28am Albumin/Globulin Ratio 1.0 RATIO L 1.1-2.2 03/25/2016 4:42am 03/25/2016 5:28am Aspartate Amino Transf (AST/SGOT) 23 U/L 17-59 03/25/2016 4:42am 2015 5:28am Alanine Aminotransferase (ALT/SGPT) 15 U/L L 21-72 03/25/2016 4:42am 5:28am Troponin I 0.042 ng/ml 0-0.12 03/25/2016 4:42am 03/25/2016 5:35am Troponin values with a difference of 55% increase from orginal troponin value represent a true biological DELTA value. (%increase Calc=Orginal Troponin value, divided by subsequent Troponin value, multiplied by 100) Magnesium Level 1.8 MG/DL 1.6-2.3 03/27/2016 4:25am 03/27/2016 5:18am Plasma Lactate 1.5 MMOL/L 0.6-2.2 03/24/2016 4:35pm 03/24/2016 4:58pm Iron Level 51 UG/DL 49-181 03/25/2016 4:42am 03/27/2016 3:14am Vitamin B12 Level 323 PG/ML 239-931 03/25/2016 4:42am 03/27/2016 3: 14am Thyroid Stimulating Hormone (TSH) 2.07 MIU/L 0.47-4.68 03/25/2016 4: 42am 03/25/2016 5:54am Stool Occult Blood NEGATIVE 03/26/2016 2:04pm 03/26/2016 2:12pm Stool Campylobacter PCR NEGATIVE NEGATIVE 03/26/2016 1:21pm 2015 4:54pm Stool C. difficile Toxin (PCR) NEGATIVE NEGATIVE 03/26/2016 1: 4:54pm Stool Plesiomonas shigelloides PCR NEGATIVE NEGATIVE 03/26/2016 1: pm 03/26/2016 4:54pm Stool Salmonella PCR NEGATIVE NEGATIVE 03/26/2016 1:03/26/2016 4 :54pm Stool Vibrio (PCR) NEGATIVE NEGATIVE 03/26/2016 1:03/26/2016 4: 54pm Stool Vibrio cholera (PCR) NEGATIVE NEGATIVE 03/26/2016 1:2015 4:54pm Stool Yersinia enterocolitica (PCR) NEGATIVE NEGATIVE 03/26/2016 1: 03/26/2016 4:54pm Stool Enteroaggregative E. coli PCR NEGATIVE NEGATIVE 03/26/2016 1: 03/26/2016 4:54pm Stool Enteropathogenic E. coli (PCR DETECTED A NEGATIVE 03/26/2016 1: 03/26/2016 4:54pm Stool Enterotoxigenic Ecoli PCR NEGATIVE NEGATIVE 03/26/2016 1:03/26/2016 4:54pm Stool E. coli Shiga Toxins NEGATIVE NEGATIVE 03/26/2016 1:2015 4:54pm Stool E coli O157 PCR N/A NA/NEG 03/26/2016 1:03/26/2016 4:54pm Stool Shigella/EIEC (PCR) NEGATIVE NEGATIVE 03/26/2016 1:2015 4:54pm Stool Cryptosporidium PCR NEGATIVE NEGATIVE 03/26/2016 1:pm 2015 4:54pm Stool Cyclospora species Detection NEGATIVE NEGATIVE 03/26/2016 1: 03/26/2016 4:54pm Stool Entamoeba (PCR) NEGATIVE NEGATIVE 03/26/2016 1:pm 03/26/2016 4:54pm Stool Giardia Lamblia PCR NEGATIVE NEGATIVE 03/26/2016 1:pm 2015 4:54pm Stool Adenovirus (PCR) NEGATIVE NEGATIVE 03/26/2016 1:2015 4:54pm Stool Astrovirus (PCR) NEGATIVE NEGATIVE 03/26/2016 1:pm 2015 4:54pm Stool Norovirus GI/GII PCR NEGATIVE NEGATIVE 03/26/2016 1:2015 4:54pm Stool Rotavirus A PCR NEGATIVE NEGATIVE 03/26/2016 1:03/26/2016 4:54pm Stool Sapovirus (PCR) NEGATIVE NEGATIVE 03/26/2016 1:pm 03/26/2016 4:54pm Urine Collection Type CLEANCATCH-MIDSTREAM 03/24/2016 6:30pm 2015 6:52pm Urine Color YELLOW YELLOW 03/24/2016 6:30pm 03/24/2016 6:52pm Urine Turbidity CLEAR CLEAR 03/24/2016 6:30pm 03/24/2016 6:52pm Urine Specific [place] <=1.005 L 1.015-1.025 03/24/2016 6:30pm 2015 6:52pm Urine pH 7.0 5.0-8.0 03/24/2016 6:30pm 03/24/2016 6:52pm Urine Leukocyte Esterase NEGATIVE NEGATIVE 03/24/2016 6:30pm 2015 6:52pm Urine Nitrite NEGATIVE NEGATIVE 03/24/2016 6:30pm 03/24/2016 6:52pm Urine Protein NEGATIVE NEGATIVE 03/24/2016 6:30pm 03/24/2016 6:52pm Urine Glucose (UA) TRACE A NEGATIVE 03/24/2016 6:30pm 03/24/2016 6: 52pm Urine Ketones NEGATIVE NEGATIVE 03/24/2016 6:30pm 03/24/2016 6:52pm Urine Urobilinogen 0.2 EU/DL NORMAL 03/24/2016 6:30pm 03/24/2016 6: 52pm Urine Bilirubin NEGATIVE NEGATIVE 03/24/2016 6:30pm 03/24/2016 6: 52pm Urine Blood NEGATIVE NEGATIVE 03/24/2016 6:30pm 03/24/2016 6:52pm Urinalysis Comment MICROSCOPIC NOT IND. 03/24/2016 6:30pm 2015 6:52pm Glucometer 260 mg/dL H 75-110 03/28/2016 11:21am 03/28/2016 11:24am Microbiology Results Procedure Source Organism/Result Collection Date/Time Result Date/Time Result Status Blood Culture Peripheral/Iv Start NO GROWTH AFTER 48 HOURS 03/26/2016 1: 49pm 03/28/2016 1:56pm Preliminary Name: ZAK AVILES Unit #: [id number] : 1940 Sex: M Admit Date: 03/25/16 Loc / Svc: MED Discharge Date: DIAGNOSTIC IMAGING REPORT Report #: [id number] [facility] G[facility] [place] Indication: ITS.REASON: e coli bacteremia, negative urinalysis PROCEDURE: CT ABD/PELVIS W/CONTRAST ONLY: Encounter: Initial Comparison: 02/25/2014 Technique: Axial CT images were performed through the abdomen and pelvis after the administration of intravenous contrast. Coronal and sagittal two-dimensional reformats. Contrast: Omnipaque 300 100 mL Findings: Lung bases: Subtle patchy areas of air trapping in both lung bases. Nodular pleural thickening left lateral base. No pleural effusion. Small 3 cm hiatal hernia with surgical clips. Liver: Unremarkable Spleen: Unremarkable. Gallbladder: Cholelithiasis. Pancreas: Unremarkable, no ductal dilatation. Adrenal glands: Unremarkable. Kidneys: No hydronephrosis or nephrolithiasis. Small cortical cyst left kidney posterior midpole. Aorta: Unremarkable with no aneurysmal change. Lymph nodes: Several small scattered periaortic lymph nodes but no true adenopathy. Stomach and bowel loops: 3 cm hiatal hernia. No bowel distention or air-fluid levels. Moderate stool throughout colon. Prominent diverticular change of sigmoid. Appendix not enlarged. CT PELVIS: Urinary bladder: Unremarkable although not well distended. Prostate: Unremarkable. Osseous structures: Marked disc space narrowed throughout lower dorsal and lumbar spine. No compression deformity or spondylolisthesis. IMPRESSION: 1. Fecal stasis. 2. No small bowel distention or air-fluid levels. 3. Cholelithiasis but no CT evidence of acute biliary disease or distention. 4. Small cortical cyst left kidney posterior midpole. 5. Small hiatal hernia. The above report concurs with the initial preliminary report provided by Rafa at 1:33 PM. . Procedures Procedure Status Date Provider(s) X-RAY EXAM OF SHOULDER Completed 01/27/16 Encounters Encounter Location Arrival/Admit Date Discharge/Depart Date Attending Provider Discharged Inpatient [facility] 03/25/16 12:25pm 03/28/16 3:40pm JULIANA BLACK MD Registered Clinic [facility] 01/27/16 12:03pm HARITHA ZELAYA MD
--- OUTSIDE RECORDS SUMMARY | 2017-01-03 08:13 | XMS REPORT | Continuity of Care Document ---
Author Author [facility] Organization [facility] Address Unknown Phone Unavailable Support Name Relationship Address Phone HARITHA ZELAYA MD Caregiver [facility] [address] [address] [place] [address] CASSIDY CABRERA FACS, MD Caregiver [address] [place] [address] [place] [address] [phone] BRANDON AVILES Next Of Kin [address] [place], [place] [address] C Insurance Providers Payer Name Policy Number Subscriber Name Relationship Medicare [id number] Zak Aviles 18 Self UMR [id number] Zak Aviles 18 Self Advance Directives Directive [...] Albuterol Sulfate 2 Puff IH QID PRN 01/09/14 Active B2/Vit A,C & E/Lut/Zeaxanth/Mn 1 Tab.sa PO TWICE A DAY 01/09/14 Active Amlodipine Besylate 10 Mg PO DAILY 03/03/14 Active Social History Social History Problem Response Recorded Date/Time Smoking Status Former smoker 03/05/2014 10:23am Chewing Tobacco Status Y 01-11-14 03/05/2014 10:23am Hx Substance Use No 03/05/2014 10:23am Hx Alcohol Use N SOBER FOR 25 YEARS 03/05/2014 10:23am Has the pt used tobacco in the last 12 months Yes 03/05/2014 10:23am Hospital Discharge Instructions No hospital discharge instructions. [...] Vital Signs Vital Response Date/Time Temperature (Fahrenheit) 97.8 deg F (96.8 - 99.1) Temperature (Calculated Celsius) 36.03066 degrees C (36.0 - 37.3) Temperature Source Temporal Pulse Rate (adult) 70 bpm (60 - 100) Respiratory Rate 16 breaths/min (10 - 20) O2 Sat by Pulse Oximetry 94 % (90 - 100) Blood Pressure 132/53 mm Hg Blood Pressure Source Automatic Cuff Height 5 ft 6 in Weight 154 lb Body Mass Index 24.0 kg/m^2 Results Test Source Date Result Interp. Ref. Range Comments Alanine Aminotransferase (ALT/SGPT) January 21, 2014 1:50pm 20 U/L L 21-72 Albumin January 21, 2014 1:50pm 3.7 G/DL N 3.5-5.0 Albumin % (PEP) March 03, 2014 10:15am 57.0 % - Albumin (PEP) March 03, 2014 10:15am 3.4 g/dL - Albumin/Globulin Ratio January 21, 2014 1:50pm 1.2 RATIO N 1.1-2.2 Alkaline Phosphatase January 21, 2014 1:50pm 114 U/L N 38-126 Yjroe-4-Pniyufehw March 03, 2014 10:15am 0.3 g/dL - Sxurx-9-Wwxtoaplt (%) March 03, 2014 10:15am 5.1 % - Ogeyg-9-Kqfobyiei March 03, 2014 10:15am 0.7 g/dL - Tcjir-0-Fpigzsonr (%) March 03, 2014 10:15am 12.5 % - Anion Gap March 04, 2014 9:45am 6 MEQ/L N 5-15 Aspartate Amino Transf (AST/SGOT) January 21, 2014 1:50pm 25 U/L N 17-59 BUN/Creatinine Ratio March 04, 2014 9:45am 22 RATIO N 6-26 Basophils # (Auto) March 04, 2014 9:45am 0.0 T/MM3 N 0-0.2 COMMENT [facility] WILL CALL Basophils (%) (Auto) March 04, 2014 9:45am 0.5 % N 0-2 COMMENT [facility] WILL CALL Kwvm-8-Japwgbcm March 03, 2014 10:15am 0.4 g/dL - Nlei-1-Cmfuwbnn (%) March 03, 2014 10:15am 6.6 % - Kuew-7-Xxbzoqmg March 03, 2014 10:15am 0.3 g/dL - Jfvb-7-Fnqavqfq (%) March 03, 2014 10:15am 4.3 % - Blood Urea Nitrogen March 04, 2014 9:45am [...] 21, 2014 1:50pm 36 MM/HR H 0-15 Gamma Globulins March 03, 2014 10:15am 0.9 g/dL - Gamma Globulins (%) March 03, 2014 10:15am 14.5 % - Immunoelectrophoresis, no IMQ performed at [facility] Reference Lab, [address] [place] [address] Swaging Machine Operator Emiliana Ray MD Globulin January 21, 2014 1:50pm 3.0 G/DL N 2.4-3.6 Glomerular Filtration Rate Calc March 04, 2014 9:45am 132 - Glucometer March 05, 2014 10:32am 125 mg/dL H 75-110 Glucose Level March 04, 2014 9:45am [...] 21, 2014 1:50pm 22.6 MG/DL N 17.6-36.0 Protein Electrophoresis Comment March 03, 2014 10:15am - - IgM kappa monoclonal peak identified by immunofixation. Prothromb Time International Ratio January 12, 2014 10:50am 1.06 N 0.86- 1.10 THERAPUTIC RANGE=2.00-3.00 FOR ANTI-THROMBOSIS THERAPUTIC RANGE=2.50- 3.50 FOR IMPLANTED VALVE RDW Standard Deviation March 04, 2014 9:45am 44.0 FL N 36.9-50.2 COMMENT [facility] WILL CALL Red Blood Count March 04, 2014 9:45am 3.87 M/MM3 L 4.50-5.90 COMMENT [facility] WILL CALL Serum Monoclonal Protein March 03, 2014 10:15am 0.4 g/dL PH - Serum Total Protein March 03, 2014 10:15am 5.9 g/dL L - Immunoelectrophoresis, no IMQ performed at [facility] Reference Lab, [facility] [place] [address] Swaging Machine Operator Emiliana Ray MD Sodium Level March 04, [...] Has specimen been collected/obtained? Y Urine Specific [place] December 26, 2013 12:35pm 1.015 - Has [...] DO Colonoscopy completed 03/04/14 ANAND FERMIN DO Inguinal hernia repair completed 03/05/14 CASSIDY CABRERA MD, FACS, CWS Encounters Encounter Location Date/Time Registered [facility] 03/03/14 10:04am Registered Clinic [facility] 02/25/14 6:24am Registered [facility] 01/21/14 1:44pm Departed Emergency Room [facility] 12/26/13 2:04pm
--- OUTSIDE RECORDS SUMMARY | 2017-01-03 08:13 | XMS REPORT | Continuity of Care Document ---
Author Author [facility] Organization [facility] Address Unknown Phone Unavailable Support Name Relationship Address Phone JHONY LAWRENCE MD Caregiver [address] [place] [address] [place] [address] Unavailable ANAND FERMIN DO Caregiver [address] [place] [address] Unavailable BRANDON ESCALANTE Next Of Kin [address] [place] [address] C Insurance Providers Guarantor Zak Escalante Address [address] [place] [address] C Email DENIED/NO TO PT [place] Payer [employer]ana Policy Number [id number] Subscriber's Name Zak Escalante Relationship 18 Self Advance Directives Directive Response [...] Mg Oral Daily 03/24/16 Antiox#10/Om3/Dha/Epa/Lut/Zeax (I-Caps With Lutein-[place] 3 Sfg) 1 Each Capsule 1 Tab [...] 6.25 Mg Oral Twice A Day 11/23/15 Dabigatran Etexilate Mesylate (Pradaxa) 150 Mg Capsule [...] Smoking Status Former smoker Hospital Discharge Instructions Current inpatient/outpatient. Discharge instructions are currently unavailable. Plan of Care Current inpatient/outpatient. The plan of care is currently unavailable Functional Status No functional status results. Allergies, [...] Signs Acute Vital Signs Vital Response Date/Time Height (Feet) 5 feet 07/10/2016 9:00am Height (Inches) 4.50 inches 07/10/2016 9:00am Weight (Kilograms) 79.000 kg 07/10/2016 9:00am Height 5 ft 4.5 in 07/10/2016 9:00am Weight 174.17 lb 07/10/2016 9:00am Body Mass Index 29.0 kg/m^2 07/10/2016 9:00am Results No known relevant diagnostic tests, laboratory data and/or discharge summary. Procedures Procedure Status Date Provider(s) CINE/VID X-RAY THROAT/ESOPH Completed 06/26/16 MOTION FLUOROSCOPY/SWALLOW Completed 06/26/16 ST SWALLOW CURRENT STATUS Completed 06/26/16 ST SWALLOW GOAL STATUS Completed 06/26/16 ST SWALLOW DISCHARGE STATUS Completed 06/26/16 Encounters Encounter Location Arrival/Admit Date Discharge/Depart Date Attending Provider Registered [facility] 07/10/16 8:40am JHONY LAWRENCE MD Discharged [facility] 07/03/16 9:30am 08/20/16 11:59pm ARIA PURCELL Registered Clinic [facility] 06/26/16 8:08am ARIA PURCELL
--- OUTSIDE RECORDS SUMMARY | 2017-01-03 08:13 | XMS REPORT | Summary of Care ---
Author Author Jerman Franco M.D. Unknown Address [address] [place] [address] [place] [address] Phone Unavailable Care Team Providers Care Civil Design Technician Name Role Phone Diomedes Aaron M.D. Unavailable Unavailable Armen Mayfield [...] Inhalation Suspension * Quantity: 60 Refills: 12 Galen RiveraBrock * Start 13-Dec-2010 Active ROPINIRole HCl - [...] History of Transurethral Resection Of Prostate (TURP) Procedures not documented Immunization Name Dates Details Immunizations not documented [...] m2 Status: Results Date Description Value Details 10-May-2016 13:46 PSA ( PROSTATE SPECIFIC ANTIGEN) 3100 PROSTATE SPECIFIC ANTIGEN 0.070 ng/mL Range: 0.000-4.000 Plan of Care Name Dates Details Planned Observations Planned Goals not documented Planned Encounters Appointment; Provider: Jerman Franco M.D. On 16-May-2017 09:00 Instructions Name Dates Details Instructions not documented Encounters Appointment; Jerman Franco M.D. Encounter Diagnosis: Problem not documented On 10-May-2016 08:45
--- OUTSIDE RECORDS SUMMARY | 2017-01-03 08:14 | XMS REPORT | Continuity of Care Document ---
Author Author [facility] Organization [facility] Address Unknown Phone Unavailable Support Name Relationship Address Phone ANAND MILLAN MD Caregiver [address] [place] [address] Unavailable HARITHA ZELAYA MD Caregiver [address] [place] [address] Unavailable BRANDON AVILES Next Of Kin [address] [place] [address] C Insurance Providers Guarantor Zak Aviles Address [address] [place] [address] C Email DENIED/NO TO PT [facility] Payer Medicarehumana Policy Number [id number] Subscriber's Name Zak Aviles Relationship 18 Self Advance Directives Directive Response Recorded Date/Time Advanced Directives Type Living Will 02/17/14 1:50pm Ordered Resuscitation Status Full Code, unverified 02/17/14 2:28pm Resuscitation Documents on File No 02/17/14 1:50pm Chief Complaint and Reason for Visit Chief Complaint Altered Mental Status Reason for Visit Dehydration Problems Active Problems Medical Problem Onset Date [...] Mg Oral Daily 03/24/16 Antiox#10/Om3/Dha/Epa/Lut/Zeax (I-Caps With Lutein-[place] 3 Sfg) 1 Each Capsule 1 Tab [...] discharge instructions. Plan of Care Discharge Date 05/04/16 2:45am Disposition 01 DISCHARGED HOME, SELF-CARE Condition at Discharge Improved Instructions/Education Provided Dehydration Prescriptions See Medication Section Referrals HARITHA ZELAYA MD Address: [address] [place] [address] [place] [phone] Additional Instructions/Education Increase fluid intake by 2-3 glasses a day as long as soft stools persist, and return here normal and intact. Return to ER or see your doctor for any worsening. Care Plan and Goals Physician Care Plan Problem: Dehydration, soft stools probably indicative of mild viral gastroenteritis Goal: Follow up with primary care provider Instructions: Take medications and follow care plan as discussed/written Increase fluid intake by 2-3 glasses a day as long as soft stools persist, and return here normal and intact. Return to ER or see your doctor for any worsening. Functional Status No functional status results. Allergies, [...] Vital Signs Vital Response Date/Time Temperature (Fahrenheit) 97.6 deg F (96.8 - 99.1) 05/04/2016 2:45am Temperature (Calculated Celsius) 36.90177 degrees C (36.0 - 37.3) 05/04/2016 2:45am Pulse Rate (adult) 68 bpm (60 - 100) 05/04/2016 2:45am Respiratory Rate 18 breaths/min (10 - 20) 05/04/2016 2:45am O2 Sat by Pulse Oximetry 92 % (90 - 100) 05/04/2016 2:45am Oxygen Delivery Method Room Air 03/28/2016 7:48am Blood Pressure 139/56 mm Hg 05/04/2016 2:45am Blood Pressure Source Automatic Cuff 03/28/2016 7:48am Height (Feet) 5 feet 05/03/2016 11:37pm Height (Inches) 6.00 inches 05/03/2016 11:37pm Weight (Kilograms) 77.100 kg 05/03/2016 11:37pm Body Mass Index (BMI) 27.0 05/03/2016 11:37pm Results Laboratory Results Test Name Result Units Flags Reference Collection Date/Time Result Date/ Time Comments Magnesium Level 1.8 MG/DL 1.6-2.3 03/27/2016 4:25am [...] Plesiomonas shigelloides PCR NEGATIVE NEGATIVE 03/26/2016 1: 03/26/2016 4:54pm Stool Salmonella PCR NEGATIVE NEGATIVE [...] 4:54pm Stool Cryptosporidium PCR NEGATIVE NEGATIVE 03/26/2016 1:2015 4:54pm Stool Cyclospora species Detection NEGATIVE NEGATIVE 03/26/2016 1: 03/26/2016 4:54pm Stool Entamoeba (PCR) NEGATIVE NEGATIVE 03/26/2016 1:03/26/2016 4:54pm Stool Giardia Lamblia PCR NEGATIVE NEGATIVE 03/26/2016 1:2015 4:54pm Stool Adenovirus (PCR) NEGATIVE NEGATIVE 03/26/2016 1:2015 4:54pm Stool Astrovirus (PCR) NEGATIVE NEGATIVE 03/26/2016 1:2015 4:54pm Stool Norovirus GI/GII PCR NEGATIVE NEGATIVE 03/26/2016 1:2015 4:54pm Stool Rotavirus A PCR NEGATIVE NEGATIVE 03/26/2016 1:03/26/2016 4:54pm Stool Sapovirus (PCR) NEGATIVE NEGATIVE 03/26/2016 1:21pm 03/26/2016 4:54pm Glucometer 260 mg/dL H 75-110 03/28/2016 11:03/28/2016 11:24am White Blood Count 5.0 T/MM3 4.5-11.0 05/04/2016 12:05/04/2016 12: 27am Red Blood Count 3.09 M/MM3 L 4.50-5.90 05/04/2016 12:05/04/2016 12: 27am Hemoglobin 8.6 GM/DL L 13.5-17.5 05/04/2016 12:05/04/2016 12:27am Hematocrit 27.7 % L 41-53 05/04/2016 12:05/04/2016 12:27am Mean Corpuscular Volume 89.6 UM3 80-100 05/04/2016 12:05/04/2016 12:27am Mean Corpuscular Hemoglobin 27.8 UUG 26-34 05/04/2016 12:2015 12:27am Mean Corpuscular Hemoglobin Concent 31.0 GM/DL 31-37 05/04/2016 12:05/04/2016 12:27am RDW Standard Deviation 45.5 FL 36.9-50.2 05/04/2016 12:05/04/2016 12:27am Platelet Count 232 T/MM3 130-400 05/04/2016 12:05/04/2016 12:27am Mean Platelet Volume 9.7 UM3 9.4-12.4 05/04/2016 12:05/04/2016 12: 27am Neutrophils (%) (Auto) 53.6 % 33-66 05/04/2016 12:05/04/2016 12: 27am Lymphocytes (%) (Auto) 31.8 % 23-45 05/04/2016 12:05/04/2016 12: 27am Monocytes (%) (Auto) 9.2 % H 0-9.0 05/04/2016 12:05/04/2016 12: 27am Eosinophils (%) (Auto) 5.0 % H 0-4 05/04/2016 12:05/04/2016 12: 27am Basophils (%) (Auto) 0.4 % 0-2 05/04/2016 12:05/04/2016 12:27am Immature Granulocyte % (Auto) 0.0 % 0.0-0.5 05/04/2016 12:2015 12:27am Absolute Neutrophils (auto) 2.7 T/MM3 1.8-7.7 05/04/2016 12:2015 12:27am Absolute Lymphocytes (auto) 1.6 T/MM3 1-4.8 05/04/2016 12:2015 12:27am Absolute Monocytes (auto) 0.5 T/MM3 0-0.8 05/04/2016 12:2015 12:27am Absolute Eosinophils (auto) 0.3 T/MM3 0-0.5 05/04/2016 12:2015 12:27am Absolute Basophils (auto) 0.0 T/MM3 0-0.2 05/04/2016 12:2015 12:27am Absolute Immature Granulocyte (auto 0.00 T/MM3 0.00-0.03 05/04/2016 12: 05/04/2016 12:27am Icterus Index < 2 0-7 05/04/2016 12:05/04/2016 12:39am Chemistry Specimen Hemolysis 85 H 0-25 05/04/2016 12:05/04/2016 12:39am 71-285: Specimen Exhibited Moderate Hemolysis - can falsely elevate K (Potassium), Troponin I, CA 19-9, PTH, CSF Glucose, Urine Protein, and can falsely decrease Phenytoin. Turbidity < 20 0-20 05/04/2016 12:05/04/2016 12:39am Sodium Level 138 MEQ/L 134-144 05/04/2016 12:05/04/2016 12:39am Potassium Level 5.3 MEQ/L H 3.6-5 05/04/2016 12:05/04/2016 12:39am Chloride Level 99 MEQ/L 98-107 05/04/2016 12:05/04/2016 12:39am Carbon Dioxide Level 29 MEQ/L 22-30 05/04/2016 12:05/04/2016 12: 39am Anion Gap 10 MEQ/L 5-15 05/04/2016 12:05/04/2016 12:39am Blood Urea Nitrogen 36.0 MG/DL H 9-20 05/04/2016 12:05/04/2016 12: 39am Creatinine 2.1 MG/DL H 0.8-1.5 05/04/2016 12:05/04/2016 12:39am BUN/Creatinine Ratio 17 RATIO 6-26 05/04/2016 12:05/04/2016 12: 39am Glomerular Filtration Rate Calc 31 05/04/2016 12:05/04/2016 12 :39am Glucose Level 88 MG/DL 75-110 05/04/2016 12:05/04/2016 12:39am Calculated Osmolality 273 MOSM/KG 261-280 05/04/2016 12:2015 12:39am Calcium Level 8.6 MG/DL 8.4-10.2 05/04/2016 12:05/04/2016 12:39am Total Bilirubin 0.50 MG/DL 0.20-1.30 05/04/2016 12:05/04/2016 12: 39am Alkaline Phosphatase 111 U/L 38-126 05/04/2016 12:05/04/2016 12: 39am Total Protein 7.7 G/DL 6.3-8.2 05/04/2016 12:05/04/2016 12:39am Albumin 4.0 G/DL 3.5-5.0 05/04/2016 12:05/04/2016 12:39am Globulin 3.7 G/DL H 2.4-3.6 05/04/2016 12:05/04/2016 12:39am Albumin/Globulin Ratio 1.1 RATIO 1.1-2.2 05/04/2016 12:05/04/2016 12:39am Aspartate Amino Transf (AST/SGOT) 37 U/L 17-59 05/04/2016 12:05/04 12:39am Alanine Aminotransferase (ALT/SGPT) 13 U/L L 21-72 05/04/2016 12:22am 12:39am Troponin I 0.022 ng/ml 0-0.12 05/04/2016 12:22am 05/04/2016 12:50am Troponin values with a difference of 55% increase from orginal troponin value represent a true biological DELTA value. (%increase Calc=Orginal Troponin value, divided by subsequent Troponin value, multiplied by 100) Urine Collection Type CLEANCATCH-MIDSTREAM 05/04/2016 2:01am 2015 2:18am Urine Color YELLOW YELLOW 05/04/2016 2:01am 05/04/2016 2:18am Urine Turbidity CLEAR CLEAR 05/04/2016 2:01am 05/04/2016 2:18am Urine Specific [place] 1.020 1.015-1.025 05/04/2016 2:01am 2015 2:18am Urine pH 5.0 5.0-8.0 05/04/2016 2:01am 05/04/2016 2:18am Urine Leukocyte Esterase NEGATIVE NEGATIVE 05/04/2016 2:01am 2015 2:18am Urine Nitrite NEGATIVE NEGATIVE 05/04/2016 2:01am 05/04/2016 2:18am Urine Protein NEGATIVE NEGATIVE 05/04/2016 2:01am 05/04/2016 2:18am Urine Glucose (UA) NEGATIVE NEGATIVE 05/04/2016 2:01am 05/04/2016 2: 18am Urine Ketones NEGATIVE NEGATIVE 05/04/2016 2:01am 05/04/2016 2:18am Urine Urobilinogen 0.2 EU/DL NORMAL 05/04/2016 2:01am 05/04/2016 2: 18am Urine Bilirubin NEGATIVE NEGATIVE 05/04/2016 2:01am 05/04/2016 2: 18am Urine Blood NEGATIVE NEGATIVE 05/04/2016 2:01am 05/04/2016 2:18am Urinalysis Comment MICROSCOPIC NOT IND. 05/04/2016 2:01am 2015 2:18am Microbiology Results Procedure Source Organism/Result Collection Date/Time Result Date/Time Result Status Blood Culture Peripheral/Iv Start NO GROWTH AFTER 5 DAYS 03/26/2016 1:49pm 03/31/2016 1:56pm Final Procedures No known history of procedures. Encounters Encounter Location Arrival/Admit Date Discharge/Depart Date Attending Provider Departed Emergency Room [facility] 05/03/16 11:37pm 05/04/16 2: 45am ANAND MILLAN MD Discharged Inpatient [facility] 03/25/16 12:25pm 03/28/16 3:40pm JULIANA BLACK MD Recent Diagnosis
[2017-01-03] MEDS: FLEET PHOSPHO-SODA 133 ML ENEMA RECTALLY PRN ×2 (08:41→09:32)
[2017-01-03] MEDS ORDERED: [UNRECOGNIZED DRUG - OTHER] TOP ONE (09:53)
[2017-01-03] MEDS ORDERED: FENTANYL 100mcg/2ml INJECTION ONE (09:53)
[2017-01-03] MEDS ORDERED: LIDOCAINE VISCOUS 2% Oral Soln 15ml UD ONE (09:53)
[2017-01-03] MEDS ORDERED: MIDAZOLAM 5mg/5ml INJECTION ONE ×2 (09:53→10:37)
[2017-01-03] MEDS ORDERED: SALINE FLUSH 10ml SYRINGE ONE ×2 (09:53→10:22)
[2017-01-03] MEDS ORDERED: CLINDAMYCIN 600mg IVPB 50 ML IV ONE (10:30)
[2017-01-03] MEDS ORDERED: FENTANYL 100mcg/2ml INJECTION IV PRN (11:45)
[2017-01-03] MEDS ORDERED: MIDAZOLAM 5mg/5ml INJECTION IV PRN (11:45)
--- NOTE | 2017-01-03 19:22 | OPNOTEF ---
DATE OF PROCEDURE: 01/03/2017 PHYSICIAN: Armen Mayfield DO PROCEDURE: EGD and colonoscopy. INDICATION FOR PROCEDURE Blood loss anemia. ASA CLASSIFICATION: 2 DESCRIPTION OF PROCEDURE Consent was signed and on the chart. Routine monitoring with ECG, continuous oximetry and noninvasive blood pressure was performed throughout the procedure and found to be within normal limits. IV sedation was performed with a total of 10 mg of Versed and 100 mcg of fentanyl for both procedures. Prior to the procedures the patient was brought to the endoscopy lab where a brief review of his medical history and physical was performed. The procedure was described to him and he was agreeable to continue. All questions were answered. He was sprayed with a topical anesthetic to the posterior pharynx, given IV sedation and placed in a left lateral decubitus position. The endoscope was introduced into the posterior pharynx without difficulty. Visualization of his vocal cords was normal. The endoscope was then advanced into the esophagus down through the stomach through the pylorus to the second part of the duodenum. The duodenal mucosa appeared normal. The endoscope was brought back into the distal antrum which was also normal. The body of the stomach had a normal appearance. The endoscope was retroflexed. There was no appreciable hiatal hernia. The stomach did insufflate and desufflate normally. The endoscope at that point was brought back to the GE junction, noting reflux esophagitis, LA Classification A. This was photographed and biopsied. The remainder of his esophagus was free of pathology. He tolerated the procedure well. There were no complications. IMPRESSION Reflux esophagitis, LA Classification A, with Martinez's type change. Multiple biopsies obtained of the GE junction. Next, colonoscopy was performed. Digital rectal exam was normal. The colonoscope was introduced through the anal verge and advanced to the cecum. Upon reaching the cecum careful inspection of the mucosa was performed from the cecum through the ascending and transverse colon. There were no polyps, masses, lesions or diverticula. He did have diverticulosis of the descending and sigmoid colon and a mass at about 10 cm which occupied about 20%-25% of the circumference. This was biopsied and the removed with a snare in a piecemeal fashion. I did inject normal saline beyond the mass as well as to the site of the mass and then underneath it in hopes that I would see separation of this mass from the muscularis layer and that indeed was not the case. At that point I elected to cauterize all the tissue that was seen. 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 IMPRESSION 1. Diverticulosis of the descending and sigmoid colon. 2. Mass at 10 cm - biopsied and removed in a piecemeal fashion. 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 RECOMMENDATIONS 1. Review the pathology report. 2. Consider CT of the abdomen and pelvis with rectal contrast. He does have renal insufficiency and IV contrast would be problematic. One might consider MRI. 3. Consider surgical consult as well. This will be decided after reviewing the pathology report with the patient and his . PAEMLA
[2017-01-06] MEDS ORDERED: ALBU18HF2 ORAL INH (12:01)
[2017-01-06] MEDS ORDERED: B2/V1TAB (12:01)
[2017-01-06] MEDS ORDERED: CELE200C PO ×2 (12:01→14:27)
[2017-01-06] MEDS ORDERED: DABI150C PO (12:01)
[2017-01-06] MEDS ORDERED: SILV20CR2 (12:01)
[2017-01-06] MEDS ORDERED: METH750T3 PO ×2 (12:01→14:27)
[2017-01-06] MEDS ORDERED: CARV6.252 PO (12:01)
[2017-01-06] MEDS ORDERED: TRAM50TA4 PO ×2 (12:01→14:32)
[2017-01-06] MEDS ORDERED: AMIO200T2 PO (12:01)
== END 2017-01-03 12:50 | disposition home or self-care (01) ==
LOC: NSC 08:09
PROVIDERS: ATTEND Internal Medicine
DX: K21.0 Gastro-esophageal reflux disease with esophagitis (principal); D12.6 Benign neoplasm of colon, unspecified; K57.30 Diverticulosis of large intestine without perforation or abscess without bleeding; D50.0 Iron deficiency anemia secondary to blood loss (chronic); G47.33 Obstructive sleep apnea (adult) (pediatric); I48.91 Unspecified atrial fibrillation; I42.9 Cardiomyopathy, unspecified; Z87.891 Personal history of nicotine dependence; G25.81 Restless legs syndrome; F41.9 Anxiety disorder, unspecified; Z99.89 Dependence on other enabling machines and devices; Z79.02 Long term (current) use of antithrombotics/antiplatelets; Z79.1 Long term (current) use of non-steroidal anti-inflammatories (NSAID); Z79.899 Other long term (current) drug therapy
CPT/HCPCS: 43239; 45381; 45385; 82948; 88305; A9270; J2250; J3010; J7120

== ENCOUNTER 2017-01-06 12:53 | Inpatient (IN) | payer MEDICARE ==
[~2017-01-06] VITALS: Ht 160 cm; Wt 73.9 kg
[~2017-01-06 12:53] MED LIST changes: +ALBU18HF2 ORAL INH; +AMIO200T2 PO; +B2/V1TAB; +CARV6.252 PO; +CELE200C PO; -LIDOCAINE 1% (10mg/ml) 2ml SDV INJ ONE; -LR 1,000 ML IV SCH; +METH750T3 PO; +SILV20CR2; +TRAM50TA4 PO
--- OUTSIDE RECORDS SUMMARY | 2017-01-06 12:57 | XMS REPORT | Continuity of Care Document ---
Author Author [facility] Organization [facility] Address Unknown Phone Unavailable Support Name Relationship Address Phone HARITHA ZELAYA MD Caregiver [facility] [address] [place] [address] [address] [place] [address] ANAND FERMIN DO Caregiver [facility] [address] [place] [address] [address] [place] [phone] BRANDON AVILES Next Of Kin [address] [place], [place] [id number] C Insurance Providers Payer Name Policy Number Subscriber Name Relationship Medicare [id number] Zak Aviles 18 Self UMR [id number] Zak Aviles 18 Self Advance Directives Directive [...] F (96.8 - 99.1) Temperature (Calculated Celsius) 36.81195 degrees C (36.0 - 37.3) Temperature Source [...] % - Immunoelectrophoresis, no IMQ performed at [facility] Reference Lab, [facility] [place] [address] Director University Emiliana Ray MD Vpde-5-Osqtbmoh (%) March 03, 2014 10:15am 4.3 % - Lbry-4-Gzqetzov (%) March 03, 2014 10:15am 6.6 % - Ebroq-3-Ylddpyeoh (%) March 03, 2014 10:15am 12.5 % - Nzlxu-2-Fzeejauqq (%) March 03, 2014 10:15am 5.1 % - Albumin % (PEP) March 03, 2014 10:15am 57.0 % - Gamma Globulins March 03, 2014 10:15am 0.9 g/dL - Pfno-1-Sbgzlgrf March 03, 2014 10:15am 0.3 g/dL - Ywbi-9-Oscplwth March 03, 2014 10:15am 0.4 g/dL - Lqkvk-9-Tmwsemspp March 03, 2014 10:15am 0.7 g/dL - Hwcva-6-Swjfwxrli March 03, 2014 10:15am 0.3 g/dL - [...] 2014 9:45am 44.0 FL N 36.9-50.2 COMMENT [facility] WILL CALL Red Blood Count March 04, 2014 9:45am 3.87 M/MM3 L 4.50-5.90 COMMENT [facility] WILL CALL Serum Total Protein March 03, 2014 10:15am 5.9 g/dL L - Immunoelectrophoresis, no IMQ performed at [facility] Reference Lab, [facility] [place] [address] Director University Emiliana Ray MD Sodium Level March 04, [...] Has specimen been collected/obtained? Y Urine Specific [place] December 26, 2013 12:35pm 1.015 - Has [...] DO Encounters Encounter Location Date/Time Registered Clinic [facility] 03/03/14 10:04am Registered Clinic [facility] 02/25/14 6:24am Registered Clinic [facility] 01/21/14 1:44pm Departed Emergency Room [facility] 12/26/13 2:04pm
--- OUTSIDE RECORDS SUMMARY | 2017-01-06 12:57 | XMS REPORT | Continuity of Care Document ---
Author Author [facility] Organization [facility] Address Unknown Phone Unavailable Care Team Providers Care Assistant Producer Name Role Phone ANAND FERMIN DO Primary Care Physician [phone] Insurance Providers Guarantor Zak Aviles Address [address] [place] [address] C Email DENIED 01-03-17 Payer [employer] Policy Number [id number] Subscriber's Name Zak Aviles Relationship 18 Self Advance Directives Directive Response Recorded Date/Time Advanced Directives Type Living Will 02/17/14 1:50pm Ordered Resuscitation Status Full Code, unverified 02/17/14 2:28pm Resuscitation Documents on File No 02/17/14 1:50pm Chief Complaint and Reason for Visit Chief Complaint Cough,Fever,Flu,URI Reason for Visit Shortness of breath Tachypnea Cough in adult Problems Active Problems Medical Problem Onset Date [...] Problems Medical Problem Onset Date Anemia Unknown Cough in adult Unknown Dehydration Unknown Hypokalemia Unknown Shortness of breath Unknown Tachypnea Unknown Medications Current Home Medications Medication Dose Units Route Directions Days Qty Instructions Start Date Acetaminophen 650 Mg Tablet.er 650 Mg Oral Twice A Day as needed for Pain 11/23/15 Albuterol Sulfate (Proair Hfa) 8.5 Gm Aerosol 2 Puff Inhalation Every 6 Hours as needed for Shortness Of Air 01/09/14 Albuterol Sulfate (Ventolin Hfa 90 Mcg/Actuation) 18 Gm Hfa.aer.ad 1 Puff Oral Inhalation Every 4 Hours as needed for Shortness Of Air/Wheezing 01/06/17 Amiodarone Hcl 200 Mg Tablet 200 Mg Oral Daily 01/06/17 B Complex With Vitamin C (Super B Complex-Vitamin C) 1 Each Tablet 1 Tab Oral Daily 11/02/15 B2/Vit A,C & E/Lut/Zeaxanth/Mn (Icaps Tablet) 1 Each Tablet.er 01/06/17 Bumetanide 1 Mg Tablet 2 Mg Oral Twice A Day 30 Days 03/28/16 Carbidopa/Levodopa (Carbidopa-Levo Er 25-100 Tb) 1 Udtab.sa Tablet.sa 1 Tab Oral Three Times A Day 12/26/11 Carvedilol 6.25 Mg Tablet 1 Tab Oral Twice Daily With Meals BEST WITH FOOD. 01/06/17 Celecoxib (Celebrex) 200 Mg Capsule 1 Cap Oral Twice A Day Dabigatran Etexilate Mesylate (Pradaxa) 150 Mg Capsule 1 Cap Oral Twice A Day TAKE WITH FULL GLASS OF WATER. Do not break, chew, open cap. Gabapentin 300 Mg Capsule 300 Mg Oral Three Times A Day 11/02/15 Lisinopril 2.5 Mg Tablet 2.5 Mg Oral Daily 03/24/16 Metformin Hcl 500 Mg Tablet 500 Mg Oral Twice Daily With Meals Methocarbamol 750 Mg Tablet 750 Mg Oral Twice A Day Take 1 tablet, by mouth, two times a day. 01/06/17 Potassium Chloride 20 Meq Tablet.er 20 Meq Oral Twice Daily With Meals 30 Days 60 Tablet Take 1 tablet, by mouth, two times a day with meals. 03/28/16 Ropinirole Hcl 2 Mg Tablet 2 Mg Oral Three Times A Day 11/02/15 Silver Sulfadiazine (Silvadene) 20 Gm Cream..g. 01/06/17 Tramadol Hcl 50 Mg Tablet 50 Mg Oral 01/06/17 Past Home Medications Medication Directions Ordered Status Bumetanide 1 Mg Tablet, 1 Mg Oral Twice A Day 11/23/15 Discontinued Calcium Carbonate (Tums) 1 Tab.chew Tab.chew, 1 Tab.chew Oral As Needed 05/04 Discontinued Carvedilol 3.125 Mg Tablet, 3.125 Mg Oral Twice Daily With Meals 11/02/15 Discontinued Cefdinir 300 Mg Capsule, 300 Mg Oral Twice A Day 03/28/16 Discontinued Dabigatran Etexilate Mesylate (Pradaxa) 150 Mg Capsule, 150 Mg Oral Twice A Day 12/26/13 Discontinued Diphenhydramine Hcl (Benadryl) 25 Mg Capsule, [...] discharge instructions. Plan of Care Discharge Date 01/06/17 12:36pm Disposition 02 TO [facility] [place] [facility] Condition at Discharge Stable Instructions/Education Provided Dyspnea (ED) Prescriptions See Medication Section Referrals ANAND FERMIN DO Address: [address] [place] [address] [address] [place] [phone] Additional Instructions/Education You're here with abnormal vital signs including oxygen saturation of 93% respiratory rate of 32/m and chest congestion with wheezing. You need to go to the emergency room for evaluation including lab work and x-rays due to your history of congestive heart failure and COPD. Functional Status No functional status results. Allergies, Adverse Reactions, Alerts Allergen Type Severity Reaction Status Last Updated Aspirin Adverse Reaction Unknown CAUSES GI BLEEDING Active 01/06/17 Prednisone Allergy Unknown ANXIOUS Active 01/06/17 Ciprofloxacin Adverse Reaction Unknown HYPERACTIVE Active 01/06/17 Dicyclomine Adverse Reaction Severe "MAKES ME VERY NERVOUS AND JITTERY" Active 01/06/17 Immunizations Query Response on File Recorded Date/Time Hx Influenza Vaccination N WILL NOT TAKE THIS VACCINE 01/01/17 3:55pm Hx Pneumococcal Vaccination Y PNEUMONIA VACCINE 11/16 DURING LAST VISIT THIS MONTH 01/01/17 3:55pm Hx Influenza Vaccination N WILL NOT TAKE THIS VACCINE 01/01/17 3:55pm DTaP Vaccine History UP TO DATE 01/06/17 11:35am Influenza Vaccine Hx 06/201601/06/17 11:35am Vital Signs Acute Vital Signs Vital Response Date/Time Temperature (Fahrenheit) 98.3 deg F (96.8 - 99.1) 01/06/2017 12:02pm Temperature (Calculated Celsius) 36.63360 degrees C (36.0 - 37.3) 01/06/2017 12:02pm Temperature Source Temporal 01/03/2017 11:43am Pulse Rate (adult) 93 bpm (60 - 100) 01/06/2017 12:02pm Respiratory Rate 32 breaths/min (10 - 20) 01/06/2017 12:02pm O2 Sat by Pulse Oximetry 93 % (90 - 100) 01/06/2017 12:02pm Oxygen Delivery Method Room Air 01/03/2017 11:41am Oxygen Delivery Method Room Air 01/03/2017 12:20pm Oxygen Flow Rate 2.00 L/min 01/03/2017 12:00pm Blood Pressure 134/75 mm Hg 01/06/2017 12:02pm Blood Pressure Source Automatic Cuff 01/03/2017 12:20pm Height (Feet) 5 feet 01/03/2017 8:21am Height (Inches) 64.00 inches 01/06/2017 12:02pm Weight (Kilograms) 77.400 kg 01/06/2017 12:02pm Body Mass Index (BMI) 29.0 01/06/2017 12:02pm Results Laboratory Results Test Name Result Units Flags Reference Collection Date/Time Result Date/ Time Comments Glucometer 101 mg/dL 75-110 01/03/2017 9:04am 01/03/2017 9:36am Procedures Procedure Status Date Provider(s) Esophagogastroduodenoscopy (EGD) with closed biopsy Completed 01/03/17 ANAND FERMIN DO Colonoscopy Completed 01/03/17 ANAND FERMIN DO Encounters Encounter Location Arrival/Admit Date Discharge/Depart Date Attending Provider Departed Emergency Room [facility] 01/06/17 10:58am 01/06/17 12: 36pm JOSELYN STEEN APRN Departed Surgical Day Care [facility] 01/03/17 8:09am 01/03/17 12 :50pm ANAND FERMIN DO Departed Clinic [facility] 01/01/17 12:41pm 01/01/17 7:36pm ANAND FERMIN DO Recent Diagnosis
--- OUTSIDE RECORDS SUMMARY | 2017-01-06 12:57 | XMS REPORT | Continuity of Care Document ---
Author Author [facility] Organization [facility] Address Unknown Phone Unavailable Support Name Relationship Address Phone HARITHA ZELAYA MD Caregiver [facility] [address] [facility] [address] [place] [address] CASSIDY CABRERA FACS, MD Caregiver [address] [place] [address] [place] [address] [phone] BRANDON AIVLES Next Of Kin [address] [place], [place] [address] C Insurance Providers Payer Name Policy Number Subscriber Name Relationship Medicare [id number] Zak Aviles 17 Self UMR [id number] Zak Aviles 18 Self Advance Directives Directive [...] F (96.8 - 99.1) Temperature (Calculated Celsius) 36.32775 degrees C (36.0 - 37.3) Temperature Source [...] 21, 2014 1:50pm 114 U/L N 38-126 Chqlq-8-Vhvkudxht March 03, 2014 10:15am 0.3 g/dL - Tvikf-6-Vpecwqqnj (%) March 03, 2014 10:15am 5.1 % - Ybhgx-3-Tpaycsrtp March 03, 2014 10:15am 0.7 g/dL - Hbhky-8-Ugmmhuuti (%) March 03, 2014 10:15am 12.5 % [...] % N 0-2 COMMENT [facility] WILL CALL Yzrm-0-Nrjcexhw March 03, 2014 10:15am 0.4 g/dL - Pjzm-1-Satabkja (%) March 03, 2014 10:15am 6.6 % - Utfo-4-Rlyhglst March 03, 2014 10:15am 0.3 g/dL - Kdft-5-Cmxufctl (%) March 03, 2014 10:15am 4.3 % [...] % - Immunoelectrophoresis, no IMQ performed at [facility] Reference Lab, [address] [place] [id number] Manager Organizational Emiliana Ray MD Globulin January 21, 2014 [...] 2014 9:45am 44.0 FL N 36.9-50.2 COMMENT [facility] WILL CALL Red Blood Count March 04, 2014 9:45am 3.87 M/MM3 L 4.50-5.90 COMMENT [facility] WILL CALL Serum Monoclonal Protein March 03, 2014 10:15am 0.4 g/dL PH - Serum Total Protein March 03, 2014 10:15am 5.9 g/dL L - Immunoelectrophoresis, no IMQ performed at [facility] Reference Lab, [facility] [place] [address] Manager Organizational Emiliana Ray MD Sodium Level March 04, [...] Has specimen been collected/obtained? Y Urine Specific [place] December 26, 2013 12:35pm 1.015 - Has [...] FACS, CWS Encounters Encounter Location Date/Time Registered [facility] 03/03/14 10:04am Registered Clinic [facility] 02/25/14 6:24am Registered [facility] 01/21/14 1:44pm Departed Emergency Room [facility] 12/26/13 2:04pm
--- NOTE | 2017-01-06 13:13 | ERPDOC ---
Departure Disposition Decision Date: January 06, 2017 Disposition Decision Time: 14:55 (DEVIN RUBIO APRN) Disposition: 02 TO OBS [facility] Impression Impression (DEVIN RUBIO APRN) Impression: Primary Impression: COPD exacerbation Additional Impression: Hx of congestive heart failure Severity: Moderate (DEVIN RUBIO APRN) Condition: Improved Seen By: Mid-level only (DEVIN RUBIO APRN) Referrals: ANAND FERMIN DO (PCP/Family) Problems/Meds/Labs Reviewed?: Yes Medications reviewed and manag: Yes (DEVIN RUBIO APRN) Follow up care ordered?: Yes Mental Status: Alert, Oriented (DEVIN RUBIO APRN) Scripts Amiodarone HCl (Pacerone) 200 Mg Tablet 200 MG PO DAILY for 30 Days, #30 TAB 11 Refills Prov: CECI LEBRON APRN 01/10/17 Sacubitril/Valsartan (Entresto 24 mg-26 mg Tablet) 1 Each Tablet 1 TAB PO BID for 30 Days, #60 TAB 5 Refills Prov: ANAND FERMIN DO 01/10/17 Carvedilol (Coreg) 12.5 Mg Tablet 12.5 MG PO BIDWM for 30 Days, #60 TAB 5 Refills Prov: ANAND FERMIN DO 01/10/17 HPI - Dyspnea General Chief Complaint: Dyspnea/Respdistress Stated Complaint: WHEEZING, COPD, TACHYPREA Time Seen by Provider: 13:12 Source: patient (DEVIN RUBIO APRN) Time Seen by Provider: 16:31 (TATIANA CARVAJAL DO) HPI - Dyspnea Initial Comments 76 YO presents to ED with report of increasing cough and sinus drainage that started yesterday evening. Says that the sinus drainage was "so bad" he could not wear his c-pap last night. Has had intermittent bilateral anterior chest pain since last night that he has with coughing. Patient report no change in his health other than have an EGD and colonoscopy Sunday. Denies fever, chills, nausea, vomiting, abdominal pain or sick contacts. Patient is tachypnea, arrival with O2 saturation 88% on room air. Patient was placed on 2 L of oxygen. Patient is not on O2 at home. Severity: moderate Associated Symptoms: chest pain (chest wall), cough, shortness of breath, DENIES: diaphoresis, fever/chills, headaches, loss of appetite, malaise, nausea/ vomiting (DEVIN RUBIO APRN) Allergies: Coded Allergies: prednisone (Verified Allergy, Unknown, ANXIOUS, 01/06/17) dicyclomine (Verified Adverse Reaction, Severe, "MAKES ME VERY NERVOUS AND JITTERY", 01/06/17) aspirin (Verified Adverse Reaction, Unknown, CAUSES GI BLEEDING, 01/06/17) ciprofloxacin (Unverified Adverse Reaction, Unknown, HYPERACTIVE, 01/06/17) PER H&P Past History Past Medical History Metabolic: cancer, hypertension Cardiac: A-fib, CAD, CHF Respiratory: asthma GI: other Male: renal insufficiency Neurological: DENIES: seizures Musculoskeletal: other Psychological: alcohol abuse (DEVIN RUBIO APRN) Surgical History General: EGD, colonoscopy Cardiac: cardiac cath Reproductive/: TURP Joint: knee (DEVIN RUBIO APRN) Family History Family PMH: FOUND: other (noncontributory) (DEVIN RUBIO APRN) Vaccines Hx Influenza Vaccination: No (WILL NOT TAKE THIS VACCINE) Hx Pneumococcal Vaccination: Yes (PNEUMONIA VACCINE 11/16 DURING LAST VISIT THIS MONTH) (DEVIN RUBIO APRN) Social History Does patient use chewing tobac: No # of Packs/Tins per Day: 1.0 # of Years: 50 Second Hand Exposure: No Quit Date: Feb 02, 2012 Substance Use Type: does not use Alcohol Intake: none Current Occupational Status: retired (DEVIN RUBIO APRN) Review of Systems Constitutional Constitutional: DENIES: chills, dizziness, fever, weakness (DEVIN RUBIO APRN) Eyes General: DENIES: erythema, exudate Lids/Accessories: DENIES: erythema, swelling (DEVIN RUBIO APRN) ENMT Ears: DENIES: pain Sinuses: congestion, rhinorrhea Mouth/Throat: DENIES: sore throat (DEVIN RUBIO APRN) Cardiovascular Cardiac: chest pain (chest wall pain with cough), DENIES: murmur Rhythm/Rate: DENIES: palpitations (DEVIN RUBIO APRN) Pulmonary Respiratory: cough, dyspnea (DEVIN RUBIO APRN) GI Upper Abdomen: DENIES: nausea, pain, vomiting Lower Abdomen: DENIES: diarrhea, pain (DEVIN RUBIO APRN) General: DENIES: dysuria, pain (ADRIÁN RUBIOS A DEEP SUBMERGENCE VEHICLE OPERATOR) Musculoskeletal General: DENIES: joint pain, pain, tenderness (RUBIO,DEVIN A DEEP SUBMERGENCE VEHICLE OPERATOR) Integumentary Skin: DENIES: color change, itching, rash (RUBIOADRIÁNS A DEEP SUBMERGENCE VEHICLE OPERATOR) Neurological General: DENIES: ataxia, change in strength, numbness, paralysis/paresis, weakness (ADRIÁN RUBIOS A DEEP SUBMERGENCE VEHICLE OPERATOR) Psychiatric Psychiatric: DENIES: anxiety, depression, nervousness (RUBIODEVIN A DEEP SUBMERGENCE VEHICLE OPERATOR) Physical Exam General General Nourishment: well nourished, well developed, adult General Body Habitus: well groomed (ADRIÁN RUBIOS A DEEP SUBMERGENCE VEHICLE OPERATOR) Vitals and Pain Weight: Kilograms: 76.700 Height (feet): 5 Height (inches): 3.00 Triage Pain Scale: (ADRIÁN RUBIOS A DEEP SUBMERGENCE VEHICLE OPERATOR) Eyes (brief) Eyes Brief: found: EOMI, PERRL (ADRIÁN RUBIOS A DEEP SUBMERGENCE VEHICLE OPERATOR) ENMT (brief) ENMT Brief: FOUND: TM clear, TM good light reflex, mucosa moist, NOT FOUND: nasal exudate, nasal swelling, normal dentition, pharnyx erythema (RAMIRO DEVIN A DEEP SUBMERGENCE VEHICLE OPERATOR) Neck (brief) Neck: FOUND: trachea midline, NOT FOUND: adenopathy, tenderness, thyromegaly ( RAMIRODEVIN A DEEP SUBMERGENCE VEHICLE OPERATOR) Respiratory Inspection: FOUND: accessory muscle use, increased effort, tachypnea (28) Palpation: FOUND: tenderness (bilateral antetior reproducible pain over ICS of chest) Auscultation: FOUND: wheezes (expiratory throughout bilaterally) (RAMIRO DEVIN A DEEP SUBMERGENCE VEHICLE OPERATOR) Cardiovascular (brief) Cardiac: FOUND: regular rate, regular rhythm (RUBIODEVIN A DEEP SUBMERGENCE VEHICLE OPERATOR) Abdomen (brief) Abdominal Brief: FOUND: bowel normo active x4, soft, NOT FOUND: tender (RUBIO, DEVIN A DEEP SUBMERGENCE VEHICLE OPERATOR) Musculoskeletal (brief) Musculoskeletal Brief: NOT FOUND: spasm, tenderness (RUBIO,DEVIN A DEEP SUBMERGENCE VEHICLE OPERATOR) Integumentary (brief) Integumentary Brief: FOUND: dry, pink, warm (RUBIO,DEVIN A DEEP SUBMERGENCE VEHICLE OPERATOR) Neurologic (brief) Neurological Brief: FOUND: CN w/o gross def to obs, motor-no gross deficits, sensory-no gross deficits (RUBIODEVIN A DEEP SUBMERGENCE VEHICLE OPERATOR) Psychiatric (brief) Psychiatric Brief: FOUND: alert, normal affect, oriented (DEVIN RUBIO DEEP SUBMERGENCE VEHICLE OPERATOR ) Differential Diagnoses Considering: Acute Bronchitis, Acute OK, CHF, COPD Exacerbation, Pneumonia, Sinusitis, Viral Syndrome (DEVIN RUBIO APRN) Progress Results/Orders Orders Procedure Category Date Status Time Cmp - Comprehensive LAB 01/06/17 Complete Metabolic 13:20 Probnp LAB 01/06/17 Complete 13:20 Cbc W/Auto LAB 01/06/17 Complete Diff-Reflex Manual 13:20 Troponin I W LAB 01/06/17 Complete Hemolysis Index 13:20 EKG EKG 01/06/17 Taken 13:20 Chest, Pa & Lateral RAD 01/06/17 Resulted 13:20 Iv Lock (Ed Only) EDM 01/06/17 Transmitted 13:20 Albuterol/Ipratropium PHA 01/06/17 Complete (Duoneb) 13:30 Oxygen Administration EDM 01/06/17 Transmitted 13:20 Methylprednisolone PHA 01/06/17 Complete Sod Succ (Solu-Medrol 13:45 Bumetanide (Bumex Inj PHA 01/06/17 Complete 1 Mg/4 Ml) 15:15 Place In Facility As: ADMIT 01/06/17 Transmitted 15:20 (JANUARY,TATIANA M DO) Lab Results Laboratory Tests Test 01/06/17 13:29 White Blood Count 15.2T/MM3 Red Blood Count 3.74M/MM3 Hemoglobin 8.3GM/DL Hematocrit 29.6% Mean Corpuscular Volume 79.1UM3 Mean Corpuscular Hemoglobin 22.2UUG Mean Corpuscular Hemoglobin Concent 28.0GM/DL RDW Standard Deviation 49.7FL Platelet Count 245T/MM3 Mean Platelet Volume 10.8UM3 Immature Granulocyte % (Auto) % Neutrophils (%) (Auto) % Lymphocytes (%) (Auto) % Monocytes (%) (Auto) % Eosinophils (%) (Auto) % Basophils (%) (Auto) % Absolute Immature Granulocyte (auto T/MM3 Absolute Neutrophils (auto) T/MM3 Absolute Lymphocytes (auto) T/MM3 Absolute Monocytes (auto) T/MM3 Absolute Eosinophils (auto) T/MM3 Absolute Basophils (auto) T/MM3 Neutrophils % (Manual) 88.0% Band Neutrophils % 1.0% Lymphocytes % (Manual) 5.0% Monocytes % (Manual) 6.0% Absolute Neutrophils (Manual) 13.4T/MM3 Band Neutrophils # 0.2T/MM3 Lymphocytes # (Manual) 0.8T/MM3 Monocytes # (Manual) 0.9T/MM3 Hypochromasia 2+ Poikilocytosis 1+ Anisocytosis 1+ Red Cell Morphology Comment Abnormal Turbidity < 20 Sodium Level 148MEQ/L Potassium Level 4.4MEQ/L Chloride Level 106MEQ/L Carbon Dioxide Level 29MEQ/L Anion Gap 13MEQ/L Blood Urea Nitrogen 17.0MG/DL Creatinine 1.0MG/DL Glomerular Filtration Rate Calc 72 BUN/Creatinine Ratio 17RATIO Glucose Level 157MG/DL Calculated Osmolality 289MOSM/KG Calcium Level 8.9MG/DL Total Bilirubin 1.00MG/DL Icterus Index < 2 Aspartate Amino Transf (AST/SGOT) 38U/L Alanine Aminotransferase (ALT/SGPT) 33U/L Alkaline Phosphatase 125U/L Troponin I < 0.012ng/ml TP-Otg-P-Type Natriuretic Peptide 54076YU/ML Total Protein 7.3G/DL Albumin 4.3G/DL Globulin 3.0G/DL Albumin/Globulin Ratio 1.4RATIO Chemistry Specimen Hemolysis < 15 () Medications Current ED Medications Albuterol/ Ipratropium (Duoneb) 3 ml O ONCE AEROSOL Last administered on 13:30; Start 01/06/17 at 13:30; Stop 01/06/17 at 13:31; Status DC Methylprednisolone Sodium Succinate (Solu-Medrol) 125 mg O ONCE IV Last administered on 01/06/17 13:47; Start 01/06/17 at 13:45; Stop 01/06/17 at 13:46; Status DC Bumetanide (BUMEX INJ 1 mg/ 4 ml) 2 mg O ONCE IV Last administered on 15:26; Start 01/06/17 at 15:15; Stop 01/06/17 at 15:16; Status DC () Progress Progress CBC 15.2, 1% bands NA 148 other chemistries unremarkable Troponin < 1.012 Pro BNP 12,000 Patient is improvement of lung sound and tachypnea after duoneb. Patient was able to come off of O2. Nurse reports that patient SpO2 is above 93% on RA and patient is having any respiratory distress. I discussed labs, CXR, EKG and conversation I had with Dr. Choi with patient and his and answered questions. (DEVIN RBUIO APRN) EKG EKG : Rate: 60-100 Rhythm: sinus QRS: fasicular block Intervals: normal ST/T: non-specific changes Interpreted by: signing physician (Dr. Carvajal) (DEVIN RUBIO APRN) Consult/PCP Consult/PCP : Time Called: 14:55 Time of first response: 15:10 Type of discussion: Admit Discussion/PCP Discussion Details I discussed patient HPI, PMH, labs, VS, exam finding, EKG, CXR and treatment in ED with Dr. Choi. Dr. Choi will admit patient observation status. She will send Dr. Marion to ED to due admission. (DEVIN RUBIO APRN) Xray Xray : Xray: CXR PA/Lat (Stable chest, no acute cardiopulmonary findings (Dr. Carvajal)) (DEVIN RUBIO APRN) DEVIN RUBIO APRN January 06, 2017 13:13 JANUARY,TATIANA Momin DO January 11, 2017 06:07
--- OUTSIDE RECORDS SUMMARY | 2017-01-06 13:22 | XMS REPORT | Continuity of Care Document ---
Author Author [facility] Organization [facility] Address Unknown Phone Unavailable Support Name Relationship Address Phone HARITHA ZELAYA MD Caregiver [facility] [address] [place] [address] [address] [place] [address] ANAND FERMIN DO Caregiver [facility] [address] [place] [address] [address] [place] [phone] BRANDON AVILES Next Of Kin [address] [place], [place] [id number] C Insurance Providers Payer Name Policy Number Subscriber Name Relationship Medicare [id number] Zak Aviles 17 Self UMR [id number] Zak Aviles 18 Self Advance Directives Directive [...] F (96.8 - 99.1) Temperature (Calculated Celsius) 36.87456 degrees C (36.0 - 37.3) Temperature Source [...] % - Immunoelectrophoresis, no IMQ performed at [facility] Reference Lab, [facility] [place] [address] Chemical Process Project Engineer Emiliana Ray MD Ubmg-9-Gmpsykoq (%) March 03, 2014 10:15am 4.3 % - Yoyl-2-Wnbcotnx (%) March 03, 2014 10:15am 6.6 % - Yavfm-4-Rgropsuae (%) March 03, 2014 10:15am 12.5 % - Awhvt-3-Opsqlcspy (%) March 03, 2014 10:15am 5.1 % - Albumin % (PEP) March 03, 2014 10:15am 57.0 % - Gamma Globulins March 03, 2014 10:15am 0.9 g/dL - Jnqt-9-Adhxypzq March 03, 2014 10:15am 0.3 g/dL - Sphp-6-Emvztosz March 03, 2014 10:15am 0.4 g/dL - Qipnk-1-Kjawrbocw March 03, 2014 10:15am 0.7 g/dL - Tkbbx-8-Ndglbsxvi March 03, 2014 10:15am 0.3 g/dL - [...] 2014 9:45am 44.0 FL N 36.9-50.2 COMMENT [facility] WILL CALL Red Blood Count March 04, 2014 9:45am 3.87 M/MM3 L 4.50-5.90 COMMENT [facility] WILL CALL Serum Total Protein March 03, 2014 10:15am 5.9 g/dL L - Immunoelectrophoresis, no IMQ performed at [facility] Reference Lab, [facility] [place] [address] Chemical Process Project Engineer Emiliana Ray MD Sodium Level March 04, [...] Has specimen been collected/obtained? Y Urine Specific [place] December 26, 2013 12:35pm 1.015 - Has [...] DO Encounters Encounter Location Date/Time Registered Clinic [facility] 03/03/14 10:04am Registered Clinic [facility] 02/25/14 6:24am Registered Clinic [facility] 01/21/14 1:44pm Departed Emergency Room [facility] 12/26/13 2:04pm
--- OUTSIDE RECORDS SUMMARY | 2017-01-06 13:22 | XMS REPORT | Continuity of Care Document ---
Author Author [facility] LIVE Organization [facility] LIVE Address Unknown Phone Unavailable Support Name Relationship Address Phone HARITHA ZELAYA MD Caregiver [facility] [address] [address] [place] [address] CASSIDY CABRERA FACS, MD Caregiver [address] [place] [address] [place] [address] [phone] [employer] [employer] Next Of Kin [address] [place], [place] [address] C Insurance Providers Payer Name Policy Number Subscriber Name Relationship Medicare [id number] Zak Aviles 17 Self UMR [id number] Zak Aviles 18 Self Advance Directives Directive [...] F (96.8 - 99.1) Temperature (Calculated Celsius) 36.85781 degrees C (36.0 - 37.3) Temperature Source [...] 21, 2014 1:50pm 114 U/L N 38-126 Egoyk-6-Rxsovcokx March 03, 2014 10:15am 0.3 g/dL - Qzguh-9-Xkewkqbke (%) March 03, 2014 10:15am 5.1 % - Qkxvy-1-Htvnxvdsp March 03, 2014 10:15am 0.7 g/dL - Lvphz-4-Shpashhrk (%) March 03, 2014 10:15am 12.5 % [...] % N 0-2 COMMENT NSC WILL CALL Eupd-1-Wfutesvl March 03, 2014 10:15am 0.4 g/dL - Ldgk-6-Crlbzegk (%) March 03, 2014 10:15am 6.6 % - Xlul-1-Ushnjakb March 03, 2014 10:15am 0.3 g/dL - Sseg-6-Dxvtvkyj (%) March 03, 2014 10:15am 4.3 % [...] % - Immunoelectrophoresis, no IMQ performed at [facility], [address] [place] [id number] Boom Cat Operator Emiliana Ray MD Globulin January 21, [...] 9:45am 44.0 FL N 36.9-50.2 COMMENT [facility] WILL CALL Red Blood Count March 04, 2014 9:45am 3.87 M/MM3 L 4.50-5.90 COMMENT NSC WILL CALL Serum Monoclonal Protein March 03, 2014 10:15am 0.4 g/dL PH - Serum Total Protein March 03, 2014 10:15am 5.9 g/dL L - Immunoelectrophoresis, no IMQ performed at [facility], [facility] [place] [address] Boom Cat Operator Emiliana Ray MD Sodium Level March [...] Has specimen been collected/obtained? Y Urine Specific [place] December 26, 2013 12:35pm 1.015 - Has [...] FACS, CWS Encounters Encounter Location Date/Time Registered [facility] 03/03/14 10:04am Registered Clinic [facility] 02/25/14 6:24am Registered [facility] 01/21/14 1:44pm Departed Emergency Room [facility] 12/26/13 2:04pm
[2017-01-06] MEDS ORDERED: ALBUTEROL/IPRATROPIUM INHAL. 2.5mg-0.5mg/3ml Neb. AEROSOL ONE (13:30)
[2017-01-06 13:34] LABS: HCT - HEMATOCRIT 29.6 % (41-53); HGB - HEMOGLOBIN 8.3 GM/DL (13.5-17.5); MEAN CORPUSCULAR HGB 22.2 UUG (26-34); MEAN CORPUSCULAR VOLUME 79.1 UM3 (80-100); MEAN PLATELET VOLUME 10.8 UM3 (9.4-12.4); RED BLOOD COUNT 3.74 M/MM3 (4.50-5.90); WBC - WHITE BLOOD COUNT 15.2 T/MM3 (4.5-11.0)
--- NOTE | 2017-01-06 13:40 | NUR ---
OXYGEN SPO2 READS 99% ON 1LPM BY NC. O2 DC'D AT THIS TIME WITH SPO2 MAINTAINING GREATER THAN 91%. WILL CONTINUE TO MONITOR.
[2017-01-06 13:43] LABS: ALBUMIN 4.3 G/DL (3.5-5.0); ALBUMIN/GLOBULIN RATIO 1.4 RATIO (1.1-2.2); ALKALINE PHOSPHATASE 125 U/L (38-126); ALT (SGPT) 33 U/L (21-72); ANION GAP 13 MEQ/L (5-15); AST (SGOT) 38 U/L (17-59); BUN/CREATININE RATIO 17 RATIO (6-26); CALCIUM 8.9 MG/DL (8.4-10.2); CHLORIDE 106 MEQ/L (98-107); CO2 - CARBON DIOXIDE 29 MEQ/L (22-30); GLOMERULAR FILTRATION RATE 72; GLUCOSE 157 MG/DL (75-110); POTASSIUM 4.4 MEQ/L (3.6-5); SODIUM 148 MEQ/L (134-144); TOTAL PROTEIN 7.3 G/DL (6.3-8.2)
[2017-01-06 13:47] LABS: BAND NEUTROPHILS # 0.2 T/MM3; LYMPHOCYTES # (MANUAL) 0.8 T/MM3 (1-4.8); MONOCYTES # (MANUAL) 0.9 T/MM3 (0-0.8); NEUTROPHILS #(MANUAL)-ABSOLUTE 13.4 T/MM3 (1.8-7.7)
[2017-01-06 13:48] LABS: ANISOCYTOSIS 1+; HYPOCHROMASIA 2+; POIKILOCYTOSIS 1+
[2017-01-06 14:22] LABS: PROBNP 12000 PG/ML (0-175)
--- NOTE | 2017-01-06 14:25 | NUR ---
STATUS PT APPEARS TO BE RESTING COMFORTABLY IN CART. DENIES NEEDS AT THIS TIME. OXYGEN MAINTAINING GREATER THAN 92% ON RA. CALL LIGHT WITHIN REACH. FAMILY REMAINS AT BEDSIDE. WILL CONTINUE TO MONITOR.
[2017-01-06] MEDS ORDERED: METH750T3 PO (14:27)
[2017-01-06] MEDS ORDERED: CARB-47 PO (14:27)
[2017-01-06] MEDS ORDERED: CELE200C PO (14:27)
--- NOTE | 2017-01-06 14:28 | NUR ---
RADIOLOGY PT TO RADIOLOGY BY CART AT THIS TIME.
[2017-01-06] MEDS ORDERED: TRAM50TA4 PO (14:32)
--- NOTE | 2017-01-06 14:35 | NUR ---
RETURN PT RETURNED FROM RADIOLOGY AT THIS TIME.
[2017-01-06] MEDS ORDERED: BUMETANIDE 1 MG/4 ML INJECTION IV ONE (15:15)
--- OUTSIDE RECORDS SUMMARY | 2017-01-06 15:36 | XMS REPORT | Continuity of Care Document ---
Author Author [facility] LIVE Organization [facility]IVE Address Unknown Phone Unavailable Support Name Relationship Address Phone HARITHA ZELAYA MD Caregiver [facility] [address] [facility] , [address] [place] [address] CASSIDY CABRERA FACS, MD Caregiver [address] [place] [address] [place] [phone] [place] [employer] Next Of Kin [address] [place], [place] [address] C Insurance Providers Payer Name Policy Number Subscriber Name Relationship Medicare [id number] Zak Aviles 17 Self UMR [id number] Zak Aviles 17 Self Advance Directives Directive [...] F (96.8 - 99.1) Temperature (Calculated Celsius) 36.20657 degrees C (36.0 - 37.3) Temperature Source [...] 21, 2014 1:50pm 114 U/L N 38-126 Nvgtk-4-Yibwvelxn March 03, 2014 10:15am 0.3 g/dL - Oudrn-6-Fyuwefgod (%) March 03, 2014 10:15am 5.1 % - Adsth-8-Clfriuaeb March 03, 2014 10:15am 0.7 g/dL - Qktvt-7-Dyybulbjn (%) March 03, 2014 10:15am 12.5 % [...] % N 0-2 COMMENT NSC WILL CALL Wzoy-8-Tucshbjq March 03, 2014 10:15am 0.4 g/dL - Gpvd-5-Lquqpcqm (%) March 03, 2014 10:15am 6.6 % - Toia-8-Bxnyvqfp March 03, 2014 10:15am 0.3 g/dL - Qbna-1-Hqbkkwaq (%) March 03, 2014 10:15am 4.3 % [...] % - Immunoelectrophoresis, no IMQ performed at [facility], [address] [place] [id number] Administrative Office Specialist Emiliana Ray MD Globulin January 21, 2014 [...] 9:45am 44.0 FL N 36.9-50.2 COMMENT [facility] WILL CALL Red Blood Count March 04, 2014 9:45am 3.87 M/MM3 L 4.50-5.90 COMMENT N[facility] WILL CALL Serum Monoclonal Protein March 03, 2014 10:15am 0.4 g/dL PH - Serum Total Protein March 03, 2014 10:15am 5.9 g/dL L - Immunoelectrophoresis, no IMQ performed at [facility], [facility] [place] [address] Administrative Office Specialist Emiliana Ray MD Sodium Level March 04, [...] Has specimen been collected/obtained? Y Urine Specific [place] December 26, 2013 12:35pm 1.015 - Has [...] I/LIZ INIT REDUC >5 YR completed 01/12/14 ACSSIDY CABRERA MD, FACS, CWS EGD BIOPSY SINGLE/MULTIPLE completed 02/18/14 ANAND FERMIN DO Colonoscopy completed 03/04/14 ANAND FERMIN DO Inguinal hernia repair completed 03/05/14 CASSIDY CABRERA MD, FACS, CWS Encounters Encounter Location Date/Time Registered [facility] 03/03/14 10:04am Registered Clinic [facility] 02/25/14 6:24am Registered [facility] 01/21/14 1:44pm Departed Emergency Room [facility] 12/26/13 2:04pm
--- OUTSIDE RECORDS SUMMARY | 2017-01-06 15:37 | XMS REPORT | Continuity of Care Document ---
Author Author [facility] LIVE Organization [facility] Address Unknown Phone Unavailable Support Name Relationship Address Phone HARITHA ZELAYA MD Caregiver [facility] [address] [place] [address] [address] [place] [address] ANAND FERMIN DO Caregiver [facility] [address] [place] [address] [address] [place] [phone] [place] [address]ILES Next Of Kin [address] [place], [place] [id number] C Insurance Providers Payer Name Policy Number Subscriber Name Relationship Medicare [id number] Zak Aviles 17 Self UMR [id number] Zak Aviles 17 Self Advance Directives Directive [...] F (96.8 - 99.1) Temperature (Calculated Celsius) 36.55013 degrees C (36.0 - 37.3) Temperature Source [...] % - Immunoelectrophoresis, no IMQ performed at [facility], [facility] [place] [address] Java J2Ee Application Developer Emiliana Ray MD Dbhu-9-Ebkgisvn (%) March 03, 2014 10:15am 4.3 % - Kwxy-6-Ovyhiijq (%) March 03, 2014 10:15am 6.6 % - Kbata-5-Mtvuzuxvk (%) March 03, 2014 10:15am 12.5 % - Diorm-5-Wdskpusyo (%) March 03, 2014 10:15am 5.1 % - Albumin % (PEP) March 03, 2014 10:15am 57.0 % - Gamma Globulins March 03, 2014 10:15am 0.9 g/dL - Qjwk-5-Xthhvbqm March 03, 2014 10:15am 0.3 g/dL - Ybfu-4-Rodjpdhd March 03, 2014 10:15am 0.4 g/dL - Mstce-8-Ttjoaawrj March 03, 2014 10:15am 0.7 g/dL - Qqahn-7-Vdlebjall March 03, 2014 10:15am 0.3 g/dL - [...] 2014 9:45am 44.0 FL N 36.9-50.2 COMMENT [facility] WILL CALL Red Blood Count March 04, 2014 9:45am 3.87 M/MM3 L 4.50-5.90 COMMENT N[facility] WILL CALL Serum Total Protein March 03, 2014 10:15am 5.9 g/dL L - Immunoelectrophoresis, no IMQ performed at [facility], [facility] [place] [address] Java J2Ee Application Developer Emiliana Ray MD Sodium Level March 04, [...] Has specimen been collected/obtained? Y Urine Specific [place] December 26, 2013 12:35pm 1.015 - Has [...] DO Encounters Encounter Location Date/Time Registered Clinic [facility] 03/03/14 10:04am Registered Clinic [facility] 02/25/14 6:24am Registered Clinic [facility] 01/21/14 1:44pm Departed Emergency Room [facility] 12/26/13 2:04pm
--- NOTE | 2017-01-06 15:42 | NUR ---
REPORT CALLED TO SABI MARSHALL ON MEDICAL UNIT. DENIES QUESTIONS.
--- NOTE | 2017-01-06 15:45 | NUR ---
ADMISSION TO BED 137. PT TRANSFERRED BY WHEELCHAIR, TOLERATING WELL. PT A&OX3.
--- NOTE | 2017-01-06 15:45 | NUR ---
ADMIT PT TAKEN TO MEDICAL UNIT, RM 137 BY W/C PER THIS RN. PT TRANSFERS FROM W/C TO BED STEADILY. TOLERATES ACTIVITY FAIR.
[2017-01-06 16:11] VITALS: Ht 160 cm; Wt 73.9 kg
--- NOTE | 2017-01-06 16:15 | NUR ---
STATUS PT ALERT AND ORIENTED X3. DENIES CHEST PAIN OR SHORTNESS OF AIR. VITALS OBTAINED AND STABLE CHARTED. O2 SAT CONTINUES 96% ROOM AIR. PT REPORTS HE CONTINUES TO HAVE SINUS DRAINAGE BUT IT IS LESS THAN IT WAS. WILL CONTINUE TO MONITOR.
[2017-01-06 16:22] VITALS: BP 149/87; PULSE 83; RESP 24; TEMP 98.3; O2SAT 96
[2017-01-06] MEDS ORDERED: ALBUTEROL/IPRATROPIUM INHAL. 2.5mg-0.5mg/3ml Neb. AEROSOL PRN (16:30)
[2017-01-06] MEDS ORDERED: MILK OF MAGNESIA 30 ML SUSP PO PRN (16:30)
[2017-01-06] MEDS ORDERED: BISACODYL 10 MG SUPPOSITORY RECTALLY PRN (16:30)
[2017-01-06] MEDS ORDERED: SENNA + DOCUSATE TAB PO PRN (16:30)
[2017-01-06] MEDS ORDERED: MENTHOL COUGH DROPS (RICOLA) MM PRN (16:30)
[2017-01-06] MEDS ORDERED: HYDROCODONE/CHLORPHENIRAMINE ER 5 ML LIQUID PO PRN (16:30)
[2017-01-06] MEDS ORDERED: CEFTRIAXONE I.V. (ER USE ONLY) 1 G in NORMAL SALINE 100 ML IV ONE (16:30)
[2017-01-06] MEDS: METHOCARBAMOL 750 MG TABLET PO SCH ×2 (17:00→21:00)
[2017-01-06] MEDS: ALBUTEROL/IPRATROPIUM INHAL. 2.5mg-0.5mg/3ml Neb. AEROSOL SCH ×2 (17:00→19:57)
--- NOTE | 2017-01-06 17:06 | HPPDOC ---
HPI - Adult Date DATE: 01/06/17 TIME: 16:17 General Chief Complaint: SOA History of Present Illness "Vanessa Aviles is a 76 y/o male with a complex medical hx including systolic CHF , a-fib, COPD, and type 2 DM. He presented to [facility] ED for further eval of sinus drainage and shortness of breath, which started 01/05/17. His nose was running so much that he couldn't use his CPAP last night. He's had some chest pain with the cough. +Productive cough with "slimy" yellow sputum. No fevers/chills. No abdominal pain or GI complaints. No significant leg swelling. He recently underwent an outpt w/u by Dr. Mayfield for anemia - he had a colonoscopy last Sunday and had 4 benign polyps removed. He also had an iron infusion earlier this week. ED w/u showed leukocytosis (15.2) and left shift with other SIRS criteria including HR >90 and tachypnea (which can also be seen in COPD exac.). CXR was not overly convincing for PNA. He was hypernatremic [place] Na of 148. [place] [address]. He was treated for both CHF and COPD in the ED with Solu-Medrol, DuoNeb, and Bumex 2 mg IV. He was admitted to observation status under the hospitalist service. Past Medical History Past Medical History Patient's Medical History: (1) Restless leg syndrome (2) Osteoarthritis (3) JEANNA (obstructive sleep apnea) Permanent Comment: Uses CPAP Last Edited By: Alfredo Henry on January 06, 2017 16: 23 (4) WON (generalized anxiety disorder) (5) Chronic low back pain (6) Prostate cancer (7) Type 2 diabetes mellitus (8) Stage 2 chronic kidney disease (9) Overweight (BMI 25.0-29.9) (10) CAD (coronary artery disease) (11) Hypertension (12) Non-ischemic cardiomyopathy (13) CHF (congestive heart failure) Permanent Comment: systolic Last Edited By: Alfredo Henry on January 06, 2017 16: 20 (14) COPD (chronic obstructive pulmonary disease) (15) Essential hypertension (16) Paroxysmal atrial fibrillation (17) Bacteremia due to Escherichia coli (18) Mixed hyperlipidemia (19) Parkinson's disease Sigmoid diverticulosis Surgical History Patient's Surgical History: Exploratory laparotomy 1975 Vasectomy 1979 Sinus surgery. TURP 1993, 1997 Right hernia repair March 2014, Dr. Berg Cardiac catheterization 02/16/15: Mild anterior hypokinesia with EF of 50-55%, mild to moderate coronary artery disease, Dr. Hinojosa recommended medical management. Current Medications Home Meds Active Scripts Potassium Chloride (Potassium Chloride) 20 Meq Tablet.er, 20 MEQ PO BIDWM for 30 Days, #60 TAB Take 1 tablet, by mouth, two times a day with meals. Prov:HARITHA ZELAYA MD 03/28/16 Bumetanide (Bumetanide) 1 Mg Tablet, 2 MG PO BID for 30 Days Prov:HARITHA ZELAYA MD 03/28/16 Reported Medications Tramadol HCl (Tramadol HCl) 50 Mg Tablet, 50 MG PO Q6HR, TAB Take 1 tablet, by mouth, every 6 hours. 01/06/17 Methocarbamol (Methocarbamol) 750 Mg Tablet, 750 MG PO QID, TAB Take 1 tablet, by mouth, 4 times a day. 01/06/17 Celecoxib (Celebrex) 200 Mg Capsule, 1 CAP PO DAILY, CAP 01/06/17 Carbidopa/Levodopa (Sinemet 25-100 mg Tablet) 1 Each Tablet, 1 TAB PO BID, #90 TAB 5 Refills 01/06/17 B2/Vit A,C & E/Lut/Zeaxanth/Mn (Icaps Tablet) 1 Each Tablet.er 01/06/17 Dabigatran Etexilate Mesylate (Pradaxa) 150 Mg Capsule, 1 CAP PO BID, CAP TAKE WITH FULL GLASS OF WATER. Do not break, chew, open cap. 01/06/17 Amiodarone HCl (Amiodarone HCl) 200 Mg Tablet, 200 MG PO DAILY, TAB 01/06/17 Silver Sulfadiazine (Silvadene) 20 Gm Cream..g. 01/06/17 Carvedilol (Carvedilol) 6.25 Mg Tablet, 1 TAB PO BIDWM, TAB BEST WITH FOOD. 01/06/17 Lisinopril (Lisinopril) 2.5 Mg Tablet, 2.5 MG PO DAILY 03/24/16 Acetaminophen (Acetaminophen) 650 Mg Tablet.er, 650 MG PO BID Y for PAIN 11/23/15 B Complex with Vitamin C (Super B Complex-Vitamin C) 1 Each Tablet, 1 TAB PO DAILY 11/02/15 Ropinirole HCl (Ropinirole HCl) 2 Mg Tablet, 2 MG PO TID 11/02/15 Gabapentin (Gabapentin) 300 Mg Capsule, 300 MG PO TID 11/02/15 Albuterol Sulfate (Proair Hfa) 8.5 Gm Aerosol, 2 PUFF IH Q6H Y for SHORTNESS OF AIR 01/09/14 Metformin Hcl (Metformin Hcl) 500 Mg Tablet, 500 MG PO BIDWM 12/26/11 Discontinued Reported Medications Dabigatran Etexilate Mesylate (Pradaxa) 150 Mg Capsule, 150 MG PO BID 12/26/13 Allergies: Coded Allergies: prednisone (Verified Allergy, Unknown, ANXIOUS, 01/06/17) dicyclomine (Verified Adverse Reaction, Severe, "MAKES ME VERY NERVOUS AND JITTERY", 01/06/17) aspirin (Verified Adverse Reaction, Unknown, CAUSES GI BLEEDING, 01/06/17) ciprofloxacin (Unverified Adverse Reaction, Unknown, HYPERACTIVE, 01/06/17) PER H&P Family History Family History: Mother had mental illness, alcoholism. Father had high blood pressure, diabetes and dyslipidemia. Social History Smoking Status: Former smoker (quit smoking in 1999) Does patient use chewing tobac: Yes # of Packs/Tins per Day: 1.0 # of Years: 50 Second Hand Exposure: No Quit Date: Feb 02, 2012 Substance Use Type: does not use Alcohol Intake: none Marital Status: Current Occupational Status: retired Advance Directives: Yes DPOA for Healthcare Only (BR[employer]ILES, ) Social History Comments PCP: Dr. Mayfield Core Blower Operator: Dr. Hinojosa Review of Systems Constitutional: DENIES: chills, fever Eyes Vision: REPORTS: other (wears glasses), DENIES: vision changes ENMT Mouth/Throat: DENIES: change in swallowing, painful swallowing Cardiovascular see HPI Pulmonary Respiratory: see HPI GI Upper Abdomen: DENIES: vomiting Lower Abdomen: constipation, DENIES: diarrhea General: DENIES: dysuria, frequency Musculoskeletal General: DENIES: weakness Integumentary Skin: DENIES: rash Neurological General: tingling (to feet - chronic), DENIES: headache, seizures, weakness Psychiatric Psychiatric: DENIES: emotional instability Hematologic/Lymphatic anemia All Other Systems All Other Systems: Reviewed (remainder of 10-point ROS Neg.) Physical Exam General General Nourishment: well nourished, well developed General Body Habitus: well groomed Vital Signs Vital Signs Date Time Temp Pulse Resp B/P Pulse Ox O2 Delivery O2 Flow Rate FiO2 01/06/17 13:50 85 24 92 Room Air 01/06/17 13:40 2.00 01/06/17 12:58 98.9 137/70 Height (Feet): 5 Height (Inches): 3.00 Eyes Brief: FOUND: PERRL, NOT FOUND: scleral icterus ENMT Brief: FOUND: mucosa moist, nasal exudate, nasal swelling, NOT FOUND: pharnyx erythema Neck Brief: FOUND: other (supple) Respiratory Auscultation: FOUND: rales (faint bibasilar), NOT FOUND: rhonchi, wheezes Cardiovascular Auscultation: FOUND: S1, S2, regular Peripheral Pulses: 2+: Dorasalis Pedis (L), Dorsalis Pedis (R), Posterior Tibial (L), Posterior Tibial (R), Radial (L), Radial (R) Comments trace b/l edema to lower ext Abdomen Inspection: NOT FOUND: distention Palpation: FOUND: soft, NOT FOUND: McBurney's point tender, Silver's sign, involuntary guarding, rebound, tender, voluntary guarding Auscultation: FOUND: normo active Musculoskeletal (brief) Musculoskeletal Brief: NOT FOUND: deformity Integumentary (brief) Integumentary Brief: FOUND: dry, warm Integumentary General: FOUND: dry, warm Color: FOUND: pink Neurologic (brief) Neurological Brief: FOUND: cranial 2-12 intact (grossly) Neurologic GCS Eye Opening: (4)Spontaneous GCS Verbal: (5)Oriented GCS Motor: (6)Obeys Commands RN Documented GCS Total: 15 Psychiatric (brief) FOUND: alert, attentive, normal affect, oriented Laboratory Laboratory Tests Test 01/06/17 13:29 White Blood Count 15.2T/MM3 Red Blood Count 3.74M/MM3 Hemoglobin 8.3GM/DL Hematocrit 29.6% Mean Corpuscular Volume 79.1UM3 Mean Corpuscular Hemoglobin 22.2UUG Mean Corpuscular Hemoglobin Concent 28.0GM/DL RDW Standard Deviation 49.7FL Platelet Count 245T/MM3 Mean Platelet Volume 10.8UM3 Immature Granulocyte % (Auto) % Neutrophils (%) (Auto) % Lymphocytes (%) (Auto) % Monocytes (%) (Auto) % Eosinophils (%) (Auto) % Basophils (%) (Auto) % Absolute Immature Granulocyte (auto T/MM3 Absolute Neutrophils (auto) T/MM3 Absolute Lymphocytes (auto) T/MM3 Absolute Monocytes (auto) T/MM3 Absolute Eosinophils (auto) T/MM3 Absolute Basophils (auto) T/MM3 Neutrophils % (Manual) 88.0% Band Neutrophils % 1.0% Lymphocytes % (Manual) 5.0% Monocytes % (Manual) 6.0% Absolute Neutrophils (Manual) 13.4T/MM3 Band Neutrophils # 0.2T/MM3 Lymphocytes # (Manual) 0.8T/MM3 Monocytes # (Manual) 0.9T/MM3 Hypochromasia 2+ Poikilocytosis 1+ Anisocytosis 1+ Red Cell Morphology Comment Abnormal Turbidity < 20 Sodium Level 148MEQ/L Potassium Level 4.4MEQ/L Chloride Level 106MEQ/L Carbon Dioxide Level 29MEQ/L Anion Gap 13MEQ/L Blood Urea Nitrogen 17.0MG/DL Creatinine 1.0MG/DL Glomerular Filtration Rate Calc 72 BUN/Creatinine Ratio 17RATIO Glucose Level 157MG/DL Calculated Osmolality 289MOSM/KG Calcium Level 8.9MG/DL Total Bilirubin 1.00MG/DL Icterus Index < 2 Aspartate Amino Transf (AST/SGOT) 38U/L Alanine Aminotransferase (ALT/SGPT) 33U/L Alkaline Phosphatase 125U/L Troponin I < 0.012ng/ml TD-Wtq-D-Type Natriuretic Peptide 95090RY/ML Total Protein 7.3G/DL Albumin 4.3G/DL Globulin 3.0G/DL Albumin/Globulin Ratio 1.4RATIO Chemistry Specimen Hemolysis < 15 Assessment & Plan Problems: (1) COPD (chronic obstructive pulmonary disease) Status: Chronic Qualifiers: COPD type: COPD with acute exacerbation Qualified Codes: J44.1 - Chronic obstructive pulmonary disease with (acute) exacerbation (2) Hypernatremia Status: Acute (3) Leukocytosis Status: Acute (4) Microcytic anemia Status: Acute Assessment & Plan: Being worked up as outpatient - recent colonoscopy with polypectomy (polyps benign) and iron infusion (5) Type 2 diabetes mellitus Status: Chronic Assessment & Plan: on Metformin (6) Stage 2 chronic kidney disease Status: Chronic (7) Restless leg syndrome Status: Chronic (8) Chronic low back pain Status: Chronic (9) WON (generalized anxiety disorder) Status: Chronic (10) JEANNA (obstructive sleep apnea) Status: Chronic (11) CAD (coronary artery disease) Status: Chronic (12) Hypertension Status: Chronic (13) Non-ischemic cardiomyopathy Status: Chronic (14) CHF (congestive heart failure) Status: Chronic (15) Parkinson's disease (16) Paroxysmal atrial fibrillation Status: Chronic (17) Mixed hyperlipidemia Status: Chronic (18) Overweight (BMI 25.0-29.9) Status: Chronic Plan/Intensity of Service Admitted under hospitalist service to observation status for COPD exacerbation and elevated BNP. Solu-Medrol and DuoNeb were started in the emergency department. Will start Solu -Medrol 62.5 mg QID add Rocephin 1 g daily. Continue supportive care for coughing and COPD. Since he has SIRS criteria including leukocytosis, tachypnea and heart rate greater than 90, assess lactate and pro-calcitonin. Repeat chest x-ray in the morning. BNP was greater than 12,000, and he received an extra Bumex 2 mg IV in the ED. Continue with home Bumex dose 2 mg twice a day. Trend troponin. Initial was negative. Continue with home cardiac and parkinsonian medications. Microcytic anemia, more pronounced since last hospitalization. He has a scheduled EGD and colonoscopy for later this week. Hypernatremia, may worsen following diuresis. Recheck in the morning. Type 2 diabetes: Continue metformin and monitor sugars. Start sliding scale insulin, anticipate hyperglycemia secondary to steroids. Refuses diabetic diet ( states it causes opposite problems - hypoglycemia). Discussed with Dr. Marion, covering for Dr. Mayfield. DVT Prophylaxis: SCD'S, other (Pradaxa) Code Status Full Code Hospital Course Summary Disclaimer The hospital course summary below is not to be considered part of the above Progress Note. Hospital Course Summary 01/06/17 Admitted under hospitalist service to observation status for COPD exacerbation and elevated BNP. Solu-Medrol and DuoNeb were started in the emergency department. Will start Solu -Medrol 62.5 mg QID add Rocephin 1 g daily. Continue supportive care for coughing and COPD. Since he has SIRS criteria including leukocytosis, tachypnea and heart rate greater than 90, assess lactate and pro-calcitonin. Repeat chest x-ray in the morning. BNP was greater than 12,000, and he received an extra Bumex 2 mg IV in the ED. Continue with home Bumex dose 2 mg twice a day. Trend troponin. Initial was negative. Continue with home cardiac and parkinsonian medications. Microcytic anemia, more pronounced since last hospitalization. He has a scheduled EGD and colonoscopy for later this week. Hypernatremia, may worsen following diuresis. Recheck in the morning. Type 2 diabetes: Continue metformin and monitor sugars. Start sliding scale insulin, anticipate hyperglycemia secondary to steroids. Refuses diabetic diet ( states it causes opposite problems - hypoglycemia). Discussed with Dr. Marion, covering for Dr. Mayfield. ALFREDO HENRY APRN January 06, 2017 16:23
[2017-01-06] MEDS ORDERED: NORMAL SALINE 500 ML IV PRN (17:15)
[2017-01-06] MEDS: CARVEDILOL 6.25 MG TABLET PO SCH (17:30)
[2017-01-06] MEDS: METFORMIN 500 MG TABLET PO SCH (17:30)
--- NOTE | 2017-01-06 17:30 | NUR ---
PAIN PT REPORTS SOME GENERALIZED PAIN BUT REFUSES ANY PAIN MEDICATION. PT ENCOURAGED TO CALL IF HE NEEDS SOME PAIN MEDICATION. PT SITS UP IN CHAIR FOR SUPPER. CHAIR ALARM ON FOR PT SAFETY. WILL MONITOR.
--- NOTE | 2017-01-06 18:16 | NUR ---
TELEMETRY PT HAS 8 BEAT RUN V TACH FOLLOWED BY ONE NORMAL BEAT AND THEN 2 MORE PVC'S. PT SITTING UP EATING SUPPER. DENIES FEELING ANY DISCOMFORT. DYSRHYTHMIA REPORTED TO DR. FLEMING. EKG TO BE OBTAINED ORDERED. WILL CONTINUE TO MONITOR.
[2017-01-06 19:53] VITALS: O2SAT 95
[2017-01-06 20:00] VITALS: PULSE 88; RESP 20
--- NOTE | 2017-01-06 20:00 | NUR ---
Order: Reviewed Pt's home med rec list and found several meds on med rec that are not in Pt's bag of home meds that Pt's provided today. Pt confirms with this nurse that Pt does not take Amiodarone and Lisinopril any longer. Notified Dr. Monreal via [employer] and received order to discontinue off of current orders. This nurse update Pt's home med list as well. Order noted and implemented.
[2017-01-06] MEDS ORDERED: BUME1TAB17 PO (20:11)
[2017-01-06] MEDS: TRAMADOL 50 MG TABLET PO SCH ×2 (21:00→23:32)
[2017-01-06] MEDS: BUMETANIDE 1 MG TABLET PO SCH (21:00)
[2017-01-06] MEDS: CARBIDOPA/LEVODOPA 25 MG/100 MG TABLET PO SCH (21:00)
[2017-01-06] MEDS: ROPINIROLE 2 MG TABLET PO SCH (21:00)
[2017-01-06] MEDS: GABAPENTIN 300 MG CAPSULE PO SCH (21:00)
[2017-01-06] MEDS: DABIGATRAN 150 MG CAPSULE PO SCH (21:00)
[2017-01-06 21:16] LABS: LACTATE - LACTIC ACID 2.4 MMOL/L (0.6-2.2)
[2017-01-06] MEDS: INSULIN ASPART 100 UNIT/ML SQ PRN (21:42)
--- NOTE | 2017-01-06 21:45 | NUR ---
SLIDING SCALE INSULIN SLIDING SCALE INSULIN -4 UNITS GIVEN FOR BLOOD SUGAR OF 331. WILL CONTINUE TO MONITOR.
--- NOTE | 2017-01-06 21:54 | NUR ---
MEDICATIONS PT IS CURRENTLY REFUSING HOSPITAL MEDICATIONS. THIS RN HAS EXPLAINED THE IMPORTANCE OF SOLU-MEDROL AND THE SLIDING SCALE INSULIN. HE HAS AGREED AT THIS TIME TO TAKE THESE MEDICATIONS BUT INSISTS ON TAKING HIS OWN MEDICATIONS AFTER PHARMACY HAS HAD A CHANCE TO REVIEW THE MEDICATIONS. MEDICATIONS PLACED IN A ZIPLOCK BAG WITH PATIENT LABEL IN PHARMACY BIN TO BE CHECKED IN THE AM. WILL CONTINUE TO MONITOR.
[2017-01-06] MEDS: ACETAMINOPHEN SR 650 MG TABLET PO PRN (23:33)
[2017-01-07] VITALS (11 sets, daily range): BP systolic 135–144; BP diastolic 80–83; PULSE 72–83; RESP 18–24; TEMP 97.6–98; O2SAT 92–97
[2017-01-07] MEDS ORDERED: ONDANSETRON 4mg/2ml INJECTION IV PRN (00:45)
[2017-01-07 02:49] LABS: HCT - HEMATOCRIT 27.2 % (41-53); HGB - HEMOGLOBIN 7.8 GM/DL (13.5-17.5); MEAN CORPUSCULAR HGB 22.1 UUG (26-34); MEAN CORPUSCULAR HGB CONC(MCHC 28.7 GM/DL (31-37); MEAN CORPUSCULAR VOLUME 77.1 UM3 (80-100); MEAN PLATELET VOLUME 10.6 UM3 (9.4-12.4); RED BLOOD COUNT 3.53 M/MM3 (4.50-5.90); WBC - WHITE BLOOD COUNT 9.1 T/MM3 (4.5-11.0)
[2017-01-07 03:01] LABS: ANION GAP 13 MEQ/L (5-15); BUN/CREATININE RATIO 22 RATIO (6-26); CALCIUM 8.6 MG/DL (8.4-10.2); CHLORIDE 104 MEQ/L (98-107); CO2 - CARBON DIOXIDE 26 MEQ/L (22-30); GLOMERULAR FILTRATION RATE 72; GLUCOSE 254 MG/DL (75-110); POTASSIUM 4.2 MEQ/L (3.6-5); SODIUM 143 MEQ/L (134-144)
--- NOTE | 2017-01-07 03:04 | NUR ---
PROVIDER NOTIFICATION NOTIFIED DR PRESLEY OF PLASMA LACTATE FROM 1.8 TO 2.4 AND LOWER HGB FROM 8.[address] ADVISED THIS RN TO MONITOR LABS AND WILL RE-EVALUATE THE NEED FOR IV FLUIDS IN CORRELATION TO PT HX OF CHF AND CURRENT COPD EXACERBATION. WILL CONTINUE TO MONITOR.
[2017-01-07 05:51] LABS: ANISOCYTOSIS 1+; BAND NEUTROPHILS # 0.1 T/MM3; HYPOCHROMASIA 1+; LYMPHOCYTES # (MANUAL) 0.4 T/MM3 (1-4.8); NEUTROPHILS #(MANUAL)-ABSOLUTE 8.6 T/MM3 (1.8-7.7); NUCLEATED RED BLOOD CELLS 1; POIKILOCYTOSIS 1+; TOTAL CELLS COUNTED 100 %
[2017-01-07] MEDS: INSULIN ASPART 100 UNIT/ML SQ PRN ×4 (06:13→21:30)
--- NOTE | 2017-01-07 06:22 | NUR ---
SHIFT SUMMARY PT ALERT AND ORIENTED X3,VITAL SIGNS HAVE REMAINED STABLE ON ROOM AIR, PT USED HIS HOME CPAP FOR A BRIEF TIME DURING THE NIGHT. DENIES C/P,N/V AND SOA. PT USES URINAL THROUGHOUT THE NIGHT WITH ADEQUATE URINE OUTPUT. PT HAS ACCEPTED A FEW OF OUR HOSPITAL MEDICATIONS (SEE EMAR) PT AMBULATES TO THE BATHROOM WITH A STANDBY. WILL CONTINUE TO MONITOR.
[2017-01-07] MEDS: ALBUTEROL/IPRATROPIUM INHAL. 2.5mg-0.5mg/3ml Neb. AEROSOL SCH ×4 (06:35→20:11)
[2017-01-07] MEDS: CARVEDILOL 6.25 MG TABLET PO SCH (08:45)
[2017-01-07] MEDS: METFORMIN 500 MG TABLET PO SCH ×2 (08:46→17:42)
[2017-01-07] MEDS: BUMETANIDE 1 MG TABLET PO SCH ×2 (08:47→14:30)
[2017-01-07] MEDS: GABAPENTIN 300 MG CAPSULE PO SCH ×3 (08:48→21:27)
[2017-01-07] MEDS: ROPINIROLE 2 MG TABLET PO SCH ×3 (08:49→21:27)
[2017-01-07] MEDS: DABIGATRAN 150 MG CAPSULE PO SCH ×2 (08:49→21:28)
[2017-01-07] MEDS: METHOCARBAMOL 750 MG TABLET PO SCH (08:50)
[2017-01-07] MEDS: CARBIDOPA/LEVODOPA 25 MG/100 MG TABLET PO SCH ×3 (08:50→21:28)
[2017-01-07] MEDS: VITAMIN B COMP + C TABLET PO SCH (08:50)
--- NOTE | 2017-01-07 08:50 | DI ---
INDICATION: ITS.REASON: cough and wheezing, hx. COPD and CHF PROCEDURE: CHEST 2-VIEWS UPRIGHT (PA \T\ LAT) Encounter: Initial COMPARISON: March 24, 2016 Findings: New rounded 9 mm ulnar nodule projecting over the right lower lung field on the frontal view between the fifth and sixth anterior ribs. The lungs are otherwise stable in appearance without new focal airspace consolidation. Chronic interstitial opacities. There is no pleural effusion or pneumothorax. The heart size, pulmonary vascularity and mediastinal contours are unchanged. IMPRESSION: 1. No acute cardiopulmonary disease. 2. Possible new right basilar 9 mm pulmonary nodule versus nipple shadow. Recommend noncontrast chest CT for further evaluation. .
[2017-01-07] MEDS: TRAMADOL 50 MG TABLET PO SCH (08:51)
[2017-01-07] MEDS: CEFTRIAXONE 1 G in NORMAL SALINE 100 ML IV SCH (08:54)
[2017-01-07] MEDS ORDERED: LISINOPRIL 2.5 MG TABLET PO SCH (09:00)
[2017-01-07] MEDS ORDERED: CELECOXIB 200 MG CAPSULE PO SCH (09:00)
[2017-01-07] MEDS ORDERED: AMIODARONE 200 MG TABLET PO SCH (09:00)
--- NOTE | 2017-01-07 11:06 | NUR ---
Status Patient alert and oriented. Stand by assist, steady on feet. States his breathing has improved since admission. RA. Up in chair for breakfast, good appetite.
[2017-01-07] MEDS ORDERED: METHOCARBAMOL 750 MG TABLET PO PRN (11:30)
--- NOTE | 2017-01-07 11:38 | PNPDOC ---
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 He reports some ongoing SOA and cough. Still wheezy. Reports that he has a nebulizer at home, but does not have meds for it. Feels it would be beneficial. Does not require O2 at home. Chart is reviewed for collateral information. Objective Vital Signs Vital signs Vital Signs Date Time Temp Pulse Resp B/P Pulse Ox O2 Delivery O2 Flow Rate FiO2 01/07/17 11:19 76 01/07/17 10:50 22 95 01/07/17 07:33 97.8 144/80 Room Air 01/06/17 15:45 2.00 Height (Feet): 5 Height (Inches): 3.00 Weight (Kilograms): 75.000 General General Appearance: Alert, Cooperative, No Acute Distress Eyes (Brief) Eyes: FOUND: EOMI, PERRL, NOT FOUND: foreign body, scleral icterus ENMT (Brief) ENMT: FOUND: mucosa moist Neck (Brief) Neck: FOUND: midline, NOT FOUND: JVD, nuchal rigidity, spasm Respiratory (Brief) Respiratory: FOUND: wheezes (Left lung is wheezy. Diminished throughout. Mild SOA at rest. ) Cardiovascular (Brief) Cardiac: FOUND: regular rate, NOT FOUND: murmur, pedal edema, regular rhythm Abdomen (Brief) Abdominal: FOUND: BS normo active x4, soft, NOT FOUND: distended, tender Extremities (Brief) Extremity : Side: Bilateral Extremity Finding: NOT FOUND: edema Musculoskeletal (Brief) Musculoskeletal: NOT FOUND: loss of motion, spasm, tenderness Integumentary (Brief) Integumentary: FOUND: dry, warm Psychiatric (Brief) Psychiatric: FOUND: alert, oriented Laboratory Laboratory Laboratory Tests 01/06/17 13:29 01/07/17 02:37 Laboratory Tests 01/06/17 13:29 01/07/17 02:37 Radiology IMPRESSION: 1. No acute cardiopulmonary disease. 2. Possible new right basilar 9 mm pulmonary nodule versus nipple shadow. Recommend noncontrast chest CT for further evaluation. Sepsis Diagnostic Criteria Sepsis Confirmed/Suspected Infection: Yes SIRS Criteria: WBC >=12,000 or <=4,000 Severe Sepsis SpO2 <90% or ventilated, Cardiac dysfunction Assessment & Plan Problems: (1) COPD (chronic obstructive pulmonary disease) Status: Chronic Qualifiers: COPD type: COPD with acute exacerbation Qualified Codes: J44.1 - Chronic obstructive pulmonary disease with (acute) exacerbation (2) Hypernatremia Status: Acute (3) Leukocytosis Status: Acute (4) Microcytic anemia Status: Acute Assessment & Plan: Being worked up as outpatient - recent colonoscopy with polypectomy (polyps benign) and iron infusion (5) Type 2 diabetes mellitus Status: Chronic Assessment & Plan: on Metformin (6) Stage 2 chronic kidney disease Status: Chronic (7) Restless leg syndrome Status: Chronic (8) Chronic low back pain Status: Chronic (9) WON (generalized anxiety disorder) Status: Chronic (10) JEANNA (obstructive sleep apnea) Status: Chronic (11) CAD (coronary artery disease) Status: Chronic (12) Hypertension Status: Chronic (13) Non-ischemic cardiomyopathy Status: Chronic (14) CHF (congestive heart failure) Status: Chronic Qualifiers: Congestive heart failure type: diastolic Congestive heart failure chronicity: acute on chronic Qualified Codes: I50.33 - Acute on chronic diastolic (congestive) heart failure (15) Parkinson's disease (16) Paroxysmal atrial fibrillation Status: Chronic (17) Mixed hyperlipidemia Status: Chronic (18) Overweight (BMI 25.0-29.9) Status: Chronic Plan/Intensity of Service 01/07/17- Dr. Fleming covering for Dr. Mayfield. *COPD with exacerbation- Still quite wheezy and a bit SOA. O2 sats of 88% on RA requiring O2 noted on admission. Continue IV steroids and Ceftriaxone. Add Doxycycline to cover atypicals. Avoid Azithro given known AFib if at all possible. Assess Viral Resp PCR. Continue Duoneb, Acapella. Add Pulmicort. May need home nebs on discharge. will need ongoing hospital care- change to inpatient status. *HFpEF- Continue Coreg- adjust dosing given elevated HR and HTN. No need for NEGIN given pEF. Continue Tele. Pradaxa *Anemia- recent outpt. workup. Continue Pradaxa. Add PPI for GI protection. Add PO iron. Recent IV iron as outpt. Hold Celebrex due to increased risk of GI bleed. May want to change Pradaxa to Eliquis given side effect profile. *Possible lung mass- repeat CXR, PA & Lat. If persists- consider CT. *DM2- elevated BG due to IV steroids. Continue Metformin. Increase insulin dosing. Reg diet per pt request. *Parkinson's, chronic pain- continue home meds. Change Tramadol and Skelaxin to PRN per home dosing. Repeat labs in AM. Continue supportive care. DVT Prophylaxis: other Code Status Full Code Hospital Course Summary Disclaimer The hospital course summary below is not to be considered part of the above Progress Note. Hospital Course Summary 01/06/17 Admitted under hospitalist service to observation status for COPD exacerbation and elevated BNP. Solu-Medrol and DuoNeb were started in the emergency department. Will start Solu -Medrol 62.5 mg QID add Rocephin 1 g daily. Continue supportive care for coughing and COPD. Since he has SIRS criteria including leukocytosis, tachypnea and heart rate greater than 90, assess lactate and pro-calcitonin. Repeat chest x-ray in the morning. BNP was greater than 12,000, and he received an extra Bumex 2 mg IV in the ED. Continue with home Bumex dose 2 mg twice a day. Trend troponin. Initial was negative. Continue with home cardiac and parkinsonian medications. Microcytic anemia, more pronounced since last hospitalization. He has a scheduled EGD and colonoscopy for later this week. Hypernatremia, may worsen following diuresis. Recheck in the morning. Type 2 diabetes: Continue metformin and monitor sugars. Start sliding scale insulin, anticipate hyperglycemia secondary to steroids. Refuses diabetic diet ( states it causes opposite problems - hypoglycemia). Discussed with Dr. Fleming, covering for Dr. Mayfield. 01/07/17- Dr. Fleming covering for Dr. Mayfield. *COPD with exacerbation- Still quite wheezy and a bit SOA. O2 sats of 88% on RA requiring O2 noted on admission. Continue IV steroids and Ceftriaxone. Add Doxycycline to cover atypicals. Avoid Azithro given known AFib if at all possible. Assess Viral Resp PCR. Continue Duoneb, Acapella. Add Pulmicort. May need home nebs on discharge. will need ongoing hospital care- change to inpatient status. *HFpEF- Continue Coreg- adjust dosing given elevated HR and HTN. No need for NEGIN given pEF. Continue Tele. Pradaxa *Anemia- recent outpt. workup. Continue Pradaxa. Add PPI for GI protection. Add PO iron. Recent IV iron as outpt. Hold Celebrex due to increased risk of GI bleed. May want to change Pradaxa to Eliquis given side effect profile. *Possible lung mass- repeat CXR, PA & Lat. If persists- consider CT. *DM2- elevated BG due to IV steroids. Continue Metformin. Increase insulin dosing. Reg diet per pt request. *Parkinson's, chronic pain- continue home meds. Change Tramadol and Skelaxin to PRN per home dosing. Repeat labs in AM. Continue supportive care. WILBERTO FLEMING MD 01/07/17 1211: Subjective Subjective I have seen and evaluated this pt independently and agree with above recommendation and plan. Pt still SOA and requiring oxygen with movement. Cont to wheeze despite IV solumedrol. Exam lungs- exp wheeze, cardiac-rrr, ext--no c/c/e A/P COPD exacerbation cont with iv solumedrol, add pulmocort breathing tx Other issues as addressed above. CRYSTAL Cox E[employer] IN[employer] DEVELOPER January 07, 2017 11:32 WILBERTO FLEMING MD January 07, 2017 12:11
[2017-01-07] MEDS: DOXYCYCLINE 100 MG TABLET PO SCH ×2 (14:29→17:43)
[2017-01-07] MEDS ORDERED: INSULIN GLARGINE 100 UNIT/ML SQ ONE (16:15)
[2017-01-07] MEDS: FERROUS SULFATE 324 MG TABLET PO SCH (17:43)
[2017-01-07] MEDS: CARVEDILOL 12.5 MG TABLET PO SCH (17:43)
[2017-01-07] MEDS: ACETAMINOPHEN SR 650 MG TABLET PO PRN (17:50)
--- NOTE | 2017-01-07 18:17 | NUR ---
Status Patient has been argumentative this shift. and patient state that the steriods cause him to be an angry person. S.S. insulin given as ordered. Patient up with assist of 1, stand by.
[2017-01-08] VITALS (15 sets, daily range): BP systolic 119–143; BP diastolic 67–90; PULSE 75–142; RESP 18–26; TEMP 97.4–98.1; O2SAT 88–97
[2017-01-08] MEDS: BUDESONIDE INH.SOLN. 0.5mg/2ml NEB AEROSOL SCH ×3 (02:13→19:41)
--- NOTE | 2017-01-08 02:19 | NUR ---
V-TACH RUN: REC'D CALL FROM TELEMETRY THAT PT HAD 8 BEATS OF V-TACH. CHECKED PT, TOOK VITALS (VSS, SEE VITALS IN INTERVENTIONS), PT DENIED SOA OR CHEST PAIN. SENT TIGER TEXT, REC'D CALL BACK FROM DR. ROCHA. ASKED THAT PT HAVE A MAGNESIUM CHECK IN MORNING BLOOD WORK; TOLD DR. ROCHA THAT ONE WAS ALREADY ORDERED. CHARGE NURSE AWARE OF THE SITUATION. WILL CONTINUE TO MONITOR.
--- NOTE | 2017-01-08 02:22 | NUR ---
BREATHING TREATMENT: 21:00 BREATHING TREATMENT OVERLOOKED; SPOKE TO SHANNON IN THE TELLO, SHANNON SAID HE WOULD LOOK INTO IT. I ASSESSED PT AFTER PT HAD AN 8 BEAT RUN OF V-TACH AND HEARD WHEEZING, CALLED RESPIRATORY, SHANNON SAID HE WOULD BE OVER TO ADMINISTER BREATHING TREATMENT. SHANNON IN PT'S ROOM GIVING TREATMENT.
--- NOTE | 2017-01-08 04:31 | NUR ---
SHIFT SUMMARY: PT IS A&OX3, FRIENDLY AND COOPERATIVE, ON RA, WEARS C-PAP AT NIGHT, IS IV LOCKED, Q8 VITALS, ON TELEMETRY, HAS BGM'S, IS UP WITH 1 STANDBY, HAD 8 BEATS OF V-TACH (SEE PREVIOUS NURSE NOTE), CAN GET ANGRY AFTER ADMINISTRATION OF SOLU-MEDROL, GOOD URINE OUTPUT, DENIES CHEST PAIN, ON DROPLET PRECAUTIONS FOR RHINO/ENTERO VIRUS. CALL LIGHT WITHIN REACH, BED ALARM ON.
[2017-01-08 05:02] LABS: HCT - HEMATOCRIT 27.3 % (41-53); HGB - HEMOGLOBIN 7.8 GM/DL (13.5-17.5); MEAN CORPUSCULAR HGB 22.5 UUG (26-34); MEAN CORPUSCULAR HGB CONC(MCHC 28.6 GM/DL (31-37); MEAN CORPUSCULAR VOLUME 78.9 UM3 (80-100); MEAN PLATELET VOLUME 11.2 UM3 (9.4-12.4); RED BLOOD COUNT 3.46 M/MM3 (4.50-5.90); WBC - WHITE BLOOD COUNT 14.3 T/MM3 (4.5-11.0)
[2017-01-08 05:29] LABS: ALBUMIN 3.8 G/DL (3.5-5.0); ANION GAP 13 MEQ/L (5-15); BUN/CREATININE RATIO 29 RATIO (6-26); CALCIUM 8.6 MG/DL (8.4-10.2); CHLORIDE 98 MEQ/L (98-107); CO2 - CARBON DIOXIDE 30 MEQ/L (22-30); CREATININE 1.1 MG/DL (0.8-1.5); GLOMERULAR FILTRATION RATE 65; GLUCOSE 168 MG/DL (75-110); MAGNESIUM 1.9 MG/DL (1.6-2.3); PHOSPHORUS 3.4 MG/DL (2.5-4.5); SODIUM 141 MEQ/L (134-144)
[2017-01-08 06:12] LABS: BAND NEUTROPHILS # 0.6 T/MM3; LYMPHOCYTES # (MANUAL) 0.7 T/MM3 (1-4.8); MONOCYTES # (MANUAL) 0.1 T/MM3 (0-0.8); NEUTROPHILS #(MANUAL)-ABSOLUTE 12.9 T/MM3 (1.8-7.7); TOTAL CELLS COUNTED 100 %
[2017-01-08 06:13] LABS: ANISOCYTOSIS 1+; HYPOCHROMASIA 1+; POIKILOCYTOSIS 1+; POLYCHROMASIA 1+
[2017-01-08] MEDS: OMEPRAZOLE 20 MG CAPSULE PO SCH (06:32)
[2017-01-08] MEDS: ALBUTEROL/IPRATROPIUM INHAL. 2.5mg-0.5mg/3ml Neb. AEROSOL SCH ×4 (07:12→19:41)
[2017-01-08] MEDS: INSULIN ASPART 100 UNIT/ML SQ PRN ×3 (07:20→21:55)
--- NOTE | 2017-01-08 07:56 | NUR ---
INCREASED HEART RATE - V-TACH: AT 06:30 AM, REC'D A CALL FROM TELEMETRY THAT PT'S HEART RATE WAS RUNNING 140-150. ASSESSED PT, SMILING, NOT SYMPTOMATIC, RECEIVING BREATHING TREATMENTS. SENT TIGER TEXT, REC'D CALL BACK FROM DR. ROCHA WHO SAID TO ORDER AN EKG "STAT." CALLED LAB TO GIVE THEM A HEADS UP ABOUT THE SITUATION. LAB CAME, DID EKG, GAVE ME THE PRINTOUT. NOTIFIED NIGHT AND DAY SHIFT [facility]; FLORENTINO LOOKED AT EKG, DISCUSSED WITH ME TO CONTACT PT'S DOCTOR. INFORMED DAY SHIFT OF PT'S SITUATION. HAD DR. FLEMING PAGED. REC'D CALL BACK FROM DR. FLEMING. HE SAID THAT DAY SHIFT CAN DISCUSS WITH DR. OLIVARES ABOUT THE PT'S V-FIB EVENT. IF DR. OLIVARES WAS NOT IN BY 8 AM, TO CALL HER ABOUT THE PT'S SITUATION.
[2017-01-08] MEDS: ROPINIROLE 2 MG TABLET PO SCH ×3 (08:15→20:30)
[2017-01-08] MEDS: GABAPENTIN 300 MG CAPSULE PO SCH ×3 (08:15→20:29)
[2017-01-08] MEDS: CEFTRIAXONE 1 G in NORMAL SALINE 100 ML IV SCH (08:15)
[2017-01-08] MEDS: VITAMIN B COMP + C TABLET PO SCH (08:15)
[2017-01-08] MEDS: CARVEDILOL 12.5 MG TABLET PO SCH (08:16)
[2017-01-08] MEDS: DOXYCYCLINE 100 MG TABLET PO SCH (08:16)
[2017-01-08] MEDS: FERROUS SULFATE 324 MG TABLET PO SCH ×2 (08:16→18:20)
[2017-01-08] MEDS: CARBIDOPA/LEVODOPA 25 MG/100 MG TABLET PO SCH ×3 (08:16→20:28)
[2017-01-08] MEDS: METFORMIN 500 MG TABLET PO SCH ×2 (08:16→18:20)
[2017-01-08] MEDS: BUMETANIDE 1 MG TABLET PO SCH ×2 (08:16→13:57)
[2017-01-08] MEDS: DABIGATRAN 150 MG CAPSULE PO SCH ×3 (08:24→21:00)
[2017-01-08] MEDS: ACETAMINOPHEN SR 650 MG TABLET PO PRN ×2 (09:16→19:16)
--- NOTE | 2017-01-08 09:16 | NUR ---
AFIB RVR PATIENT IN AFIB AROUND 0630 THIS AM. RATE CONTINUES TO INCREASE, BETWEEN 120S-160S AT TIMES. BP STABLE. PT DENIES ANY SYMPTOMS OR FEELING HIS HEART RACE. DR OLIVARES AWARE AND WILL SEND DR FERMIN A TEXT.
[2017-01-08] MEDS ORDERED: NORMAL SALINE 500 ML IV SCH (10:43)
[2017-01-08] MEDS ORDERED: DILTIAZEM 25mg/5ml INJECTION IV ONE ×2 (11:15→13:30)
--- NOTE | 2017-01-08 12:14 | CONSPD ---
CECI LEBRON SLIP MIXER 01/08/17 1201: Consultation Info Date DATE: 01/08/17 TIME: 11:38 Date of Consultation: January 08, 2017 Attending Physician: Anand Femrin DO Reason for Consultation: A Fib RVR HPI - Adult Date DATE: 01/08/17 TIME: 11:38 General Date of Admission Date of Admission: January 07, 2017 at 11:38 Chief Complaint: SOA History of Present Illness "Vanessa Aviles is a 76 year old male with a complex medical history including paroxysmal A Fib, systolic CHF, a-fib, COPD, and type 2 DM. He [place] [facility] [place] further evaluation of sinus drainage and shortness of breath, which started 01/05/17. His nose was running so much that he couldn't use his CPAP last night. He's had some chest pain with the cough. +Productive cough with "slimy" yellow sputum. No fevers/chills. No abdominal pain or GI complaints. No significant leg swelling. He recently underwent an outpatient work up by Dr. Fermin for anemia - he had a colonoscopy last Sunday and had 4 benign polyps removed. He also had an iron infusion earlier this week. ED work up showed leukocytosis (15.2) and left shift with other SIRS criteria including HR >90 and tachypnea (which can also be seen in COPD exac.). CXR was not overly convincing for PNA. He was hypernatremic with Na of 148. BNP was [address]. He was treated for both CHF and COPD in the ED with Solu-Medrol, DuoNeb, and Bumex 2 mg IV. He was admitted to observation status under the hospitalist service. This morning approximately 0630 he went into AFib with RVR, Dr. Fermin was notified and Dr. Hinojosa is being consulted. He was taken off of Amiodarone in July of last year due to abnormal PFTs and started on Pradaxa for stroke prevention. He is seen in his room on Medical with family at the bedside. He reports anemia which Dr. Fermin has ordered blood transfusion for and is refusing to take the Pradaxa due to reported GI bleed. He denies chest pain, or feeling his heart racing. Past Medical History Past Medical History Metabolic: cancer, diabetes (type II), hypertension Cardiac: A-fib, CAD, CHF Respiratory: COPD, asthma GI: other Male: renal insufficiency Neurological: DENIES: seizures Musculoskeletal: other Psychological: alcohol abuse, drug abuse Surgical History General: EGD, colonoscopy, hernia Cardiac: cardiac cath Reproductive/: TURP Joint: knee Current Medications Home Meds Active Scripts Amiodarone HCl (Pacerone) 200 Mg Tablet, 200 MG PO DAILY for 30 Days, #30 TAB 11 Refills Prov:CECI LEBRON APRN 01/10/17 Sacubitril/Valsartan (Entresto 24 mg-26 mg Tablet) 1 Each Tablet, 1 TAB PO BID for 30 Days, #60 TAB 5 Refills Prov:ANAND FERMIN DO 01/10/17 Carvedilol (Coreg) 12.5 Mg Tablet, 12.5 MG PO BIDWM for 30 Days, #60 TAB 5 Refills Prov:ANAND FERMIN DO 01/10/17 Potassium Chloride (Potassium Chloride) 20 Meq Tablet.er, 20 MEQ PO BIDWM for 30 Days, #60 TAB Take 1 tablet, by mouth, two times a day with meals. Prov:HARITHA ZELAYA MD 03/28/16 Reported Medications Bumetanide (Bumetanide) 1 Mg Tablet, 1 TAB PO BID, TAB 01/06/17 Tramadol HCl (Tramadol HCl) 50 Mg Tablet, 50 MG PO Q6HR Y for PAIN, TAB Take 1 tablet, by mouth, every 6 hours. 01/06/17 Methocarbamol (Methocarbamol) 750 Mg Tablet, 750 MG PO QID Y for PAIN, TAB Take 1 tablet, by mouth, 4 times a day. 01/06/17 Celecoxib (Celebrex) 200 Mg Capsule, 1 CAP PO DAILY, CAP 01/06/17 Carbidopa/Levodopa (Sinemet 25-100 mg Tablet) 1 Each Tablet, 1 TAB PO TID, #90 TAB 5 Refills 01/06/17 Dabigatran Etexilate Mesylate (Pradaxa) 150 Mg Capsule, 1 CAP PO BID, CAP TAKE WITH FULL GLASS OF WATER. Do not break, chew, open cap. 01/06/17 Silver Sulfadiazine (Silvadene) 20 Gm Cream..g. 01/06/17 Acetaminophen (Acetaminophen) 650 Mg Tablet.er, 650 MG PO BID Y for PAIN 11/23/15 B Complex with Vitamin C (Super B Complex-Vitamin C) 1 Each Tablet, 1 TAB PO DAILY 11/02/15 Ropinirole HCl (Ropinirole HCl) 2 Mg Tablet, 2 MG PO TID 11/02/15 Gabapentin (Gabapentin) 300 Mg Capsule, 300 MG PO BID 11/02/15 Albuterol Sulfate (Proair Hfa) 8.5 Gm Aerosol, 2 PUFF IH Q6H Y for SHORTNESS OF AIR 01/09/14 Metformin Hcl (Metformin Hcl) 500 Mg Tablet, 500 MG PO BIDWM 12/26/11 Discontinued Reported Medications Carvedilol (Carvedilol) 6.25 Mg Tablet, 1 TAB PO BIDWM, TAB BEST WITH FOOD. 01/06/17 Allergies: Coded Allergies: prednisone (Verified Allergy, Unknown, ANXIOUS, 01/06/17) dicyclomine (Verified Adverse Reaction, Severe, "MAKES ME VERY NERVOUS AND JITTERY", 01/06/17) aspirin (Verified Adverse Reaction, Unknown, CAUSES GI BLEEDING, 01/06/17) ciprofloxacin (Unverified Adverse Reaction, Unknown, HYPERACTIVE, 01/06/17) PER H&P Family History FOUND: other (noncontributory) Vaccines [id number] WHICH VACCINE FALL 2015 UNK VACCINATION UP TO DATE Social History Smoking Status: Former smoker (quit smoking in 1999) Does patient use chewing tobac: Yes # of Packs/Tins per Day: 1.0 # of Years: 50 Second Hand Exposure: No Quit Date: Feb 02, 2012 Substance Use Type: does not use Alcohol Intake: none, former alcohol drinker Marital Status: Current Occupational Status: retired Advance Directives: Yes DPOA for Healthcare Only ([employer], ) Review of Systems Constitutional: REPORTS: see HPI Eyes Vision: DENIES: blurring ENMT Ears: REPORTS: see HPI Hearing: DENIES: tinnitus Balance: DENIES: vertigo Cardiovascular dyspnea on exertion, DENIES: chest pain, murmur, orthopnea, paroxysmal nocturnal dysp Rhythm/Rate: DENIES: irregular beat, palpitations, tachycardia Vascular: pedal edema Pulmonary Respiratory: cough, see HPI, sputum GI Upper Abdomen: DENIES: nausea, vomiting Lower Abdomen: DENIES: diarrhea General: DENIES: dysuria Integumentary Skin: DENIES: rash, sores Neurological General: DENIES: headache, numbness, syncope, weakness Hematologic/Lymphatic anemia, see HPI All Other Systems All Other Systems: Reviewed (remainder of 10-point ROS Neg.) Physical Exam General General Nourishment: well nourished, well developed, apparent age Vital Signs Vital Signs Date Time Temp Pulse Resp B/P Pulse Ox O2 Delivery O2 Flow Rate FiO2 01/08/17 09:16 142 143/76 01/08/17 08:00 98.1 26 97 Room Air 01/06/17 15:45 2.00 Height (Feet): 5 Height (Inches): 3.00 Telemetry Rhythm: Atrial Fibrillation ENMT Brief: FOUND: mucosa moist Neck Brief: NOT FOUND: JVD, carotid bruits Respiratory Brief: FOUND: clear all bearden, equal bilaterally, NOT FOUND: rales , wheezes Cardiovascular (brief) Cardiac Brief: NOT FOUND: click, gallop, murmur, pedal edema, regular rate, regular rhythm Abdomen (brief) Abdominal Brief: FOUND: BS normo active x4, soft, NOT FOUND: tender Integumentary (brief) Integumentary Brief: FOUND: dry, pink, warm Neurologic RN Documented GCS Eye Opening: (4)Spontaneous Verbal: (5)Oriented Motor: (6)Obeys Commands Total: Psychiatric (brief) FOUND: alert, attentive, oriented Laboratory Laboratory Tests Test 01/06/17 13:29 01/06/17 16:58 01/06/17 20:49 01/06/17 20:56 White Blood Count 15.2T/MM3 Red Blood Count 3.74M/MM3 Hemoglobin 8.3GM/DL Hematocrit 29.6% Mean Corpuscular Volume 79.1UM3 Mean Corpuscular Hemoglobin 22.2UUG Mean Corpuscular Hemoglobin Concent 28.0GM/DL RDW Standard Deviation 49.7FL Platelet Count 245T/MM3 Mean Platelet Volume 10.8UM3 Immature Granulocyte % (Auto) % Neutrophils (%) (Auto) % Lymphocytes (%) (Auto) % Monocytes (%) (Auto) % Eosinophils (%) (Auto) % Basophils (%) (Auto) % Absolute Immature Granulocyte (auto T/MM3 Absolute Neutrophils (auto) T/MM3 Absolute Lymphocytes (auto) T/MM3 Absolute Monocytes (auto) T/MM3 Absolute Eosinophils (auto) T/MM3 Absolute Basophils (auto) T/MM3 Neutrophils % (Manual) 88.0% Band Neutrophils % 1.0% Lymphocytes % (Manual) 5.0% Monocytes % (Manual) 6.0% Absolute Neutrophils (Manual) 13.4T/MM3 Band Neutrophils # 0.2T/MM3 Lymphocytes # (Manual) 0.8T/MM3 Monocytes # (Manual) 0.9T/MM3 Hypochromasia 2+ Poikilocytosis 1+ Anisocytosis 1+ Red Cell Morphology Comment Abnormal Turbidity < 20 Sodium Level 148MEQ/L Potassium Level 4.4MEQ/L Chloride Level 106MEQ/L Carbon Dioxide Level 29MEQ/L Anion Gap 13MEQ/L Blood Urea Nitrogen 17.0MG/DL Creatinine 1.0MG/DL Glomerular Filtration Rate Calc 72 BUN/Creatinine Ratio 17RATIO Glucose Level 157MG/DL Calculated Osmolality 289MOSM/KG Calcium Level 8.9MG/DL Total Bilirubin 1.00MG/DL Icterus Index < 2 Aspartate Amino Transf (AST/SGOT) 38U/L Alanine Aminotransferase (ALT/SGPT) 33U/L Alkaline Phosphatase 125U/L Troponin I < 0.012ng/ml < 0.012ng/ml TA-Qgh-L-Type Natriuretic Peptide 36471UP/ML Total Protein 7.3G/DL Albumin 4.3G/DL Globulin 3.0G/DL Albumin/Globulin Ratio 1.4RATIO Chemistry Specimen Hemolysis < 15 < 15 Plasma Lactate 1.8MMOL/L 2.4MMOL/L Procalcitonin < 0.05NG/ML Glucometer 331mg/dL Test 01/07/17 02:37 01/07/17 06:03 01/07/17 10:07 01/07/17 13:19 White Blood Count 9.1T/MM3 Red Blood Count 3.53M/MM3 Hemoglobin 7.8GM/DL Hematocrit 27.2% Mean Corpuscular Volume 77.1UM3 Mean Corpuscular Hemoglobin 22.1UUG Mean Corpuscular Hemoglobin Concent 28.7GM/DL RDW Standard Deviation 48.0FL Platelet Count 203T/MM3 Mean Platelet Volume 10.6UM3 Immature Granulocyte % (Auto) % Neutrophils (%) (Auto) % Lymphocytes (%) (Auto) % Monocytes (%) (Auto) % Eosinophils (%) (Auto) % Basophils (%) (Auto) % Absolute Immature Granulocyte (auto T/MM3 Absolute Neutrophils (auto) T/MM3 Absolute Lymphocytes (auto) T/MM3 Absolute Monocytes (auto) T/MM3 Absolute Eosinophils (auto) T/MM3 Absolute Basophils (auto) T/MM3 Neutrophils % (Manual) 95.0% Band Neutrophils % 1.0% Lymphocytes % (Manual) 4.0% Absolute Neutrophils (Manual) 8.6T/MM3 Band Neutrophils # 0.1T/MM3 Lymphocytes # (Manual) 0.4T/MM3 Nucleated Red Blood Cells 1 Hypochromasia 1+ Poikilocytosis 1+ Anisocytosis 1+ Red Cell Morphology Comment Abnormal Turbidity < 20 Sodium Level 143MEQ/L Potassium Level 4.2MEQ/L Chloride Level 104MEQ/L Carbon Dioxide Level 26MEQ/L Anion Gap 13MEQ/L Blood Urea Nitrogen 22.0MG/DL Creatinine 1.0MG/DL Glomerular Filtration Rate Calc 72 BUN/Creatinine Ratio 22RATIO Glucose Level 254MG/DL Calculated Osmolality 287MOSM/KG Calcium Level 8.6MG/DL Icterus Index < 2 Troponin I < 0.012ng/ml Chemistry Specimen Hemolysis < 15 Glucometer 263mg/dL 329mg/dL Adenovirus (PCR) Negative Bordetella parapertussis DNA (PCR) Negative Chlamydia pneumoniae DNA (PCR) Negative Coronavirus Type OC43 (PCR) Negative Coronavirus Type HKU1 (PCR) Negative Coronavirus Type 229E (PCR) Negative Coronavirus Type NL63 (PCR) Negative Human Metapneumovirus (PCR) Negative Influenza Virus Type A (PCR) Negative Influenza Virus Type B (PCR) Negative Mycoplasma pneumoniae (PCR) Negative Parainfluenza Type 1 (PCR) Negative Parainfluenza Type 2 (PCR) Negative Parainfluenza Type 3 (PCR) Negative Parainfluenza Type 4 (PCR) Negative Respiratory Syncytial Virus (PCR) Negative Enterovirus/Rhinovirus (PCR) Detected Test 01/07/17 14:39 01/07/17 19:55 01/08/17 04:38 01/08/17 06:33 Glucometer 345mg/dL 238mg/dL 258mg/dL White Blood Count 14.3T/MM3 Red Blood Count 3.46M/MM3 Hemoglobin 7.8GM/DL Hematocrit 27.3% Mean Corpuscular Volume 78.9UM3 Mean Corpuscular Hemoglobin 22.5UUG Mean Corpuscular Hemoglobin Concent 28.6GM/DL RDW Standard Deviation 48.0FL Platelet Count 234T/MM3 Mean Platelet Volume 11.2UM3 Immature Granulocyte % (Auto) % Neutrophils (%) (Auto) % Lymphocytes (%) (Auto) % Monocytes (%) (Auto) % Eosinophils (%) (Auto) % Basophils (%) (Auto) % Absolute Immature Granulocyte (auto T/MM3 Absolute Neutrophils (auto) T/MM3 Absolute Lymphocytes (auto) T/MM3 Absolute Monocytes (auto) T/MM3 Absolute Eosinophils (auto) T/MM3 Absolute Basophils (auto) T/MM3 Neutrophils % (Manual) 90.0% Band Neutrophils % 4.0% Lymphocytes % (Manual) 5.0% Monocytes % (Manual) 1.0% Absolute Neutrophils (Manual) 12.9T/MM3 Band Neutrophils # 0.6T/MM3 Lymphocytes # (Manual) 0.7T/MM3 Monocytes # (Manual) 0.1T/MM3 Polychromasia 1+ Hypochromasia 1+ Poikilocytosis 1+ Basophilic Stippling 1+ Anisocytosis 1+ Red Cell Morphology Comment Abnormal Turbidity < 20 Sodium Level 141MEQ/L Potassium Level 4.0MEQ/L Chloride Level 98MEQ/L Carbon Dioxide Level 30MEQ/L Anion Gap 13MEQ/L Blood Urea Nitrogen 32.0MG/DL Creatinine 1.1MG/DL Glomerular Filtration Rate Calc 65 BUN/Creatinine Ratio 29RATIO Glucose Level 168MG/DL Calculated Osmolality 282MOSM/KG Calcium Level 8.6MG/DL Phosphorus Level 3.4MG/DL Magnesium Level 1.9MG/DL Icterus Index < 2 Albumin 3.8G/DL Chemistry Specimen Hemolysis < 15 Test 01/08/17 10:18 Glucometer 246mg/dL Impression/Recommendation Problems: (1) Atrial flutter with rapid ventricular response Status: Acute Assessment & Plan: History of paroxysmal A Fib, stopped Amiodarone last July due to abnormal PFTs, started on Pradaxa to minimize stroke risk. Patient is refusing due to recent reported GI bleed. Increase COreg to 25mg BID , Add Cardizem 240mg daily. Start IV Amiodarone bolus and drip as was in SR until 0630. NPO at midnight. Plan DCCV at 0800 if does not self convert. (2) Non-ischemic cardiomyopathy Status: Chronic Assessment & Plan: EF today is 30%, down from an EF of 45-50% in July. Increase Coreg. Start Entresto 24/26mg BID, LifeVest ordered (3) Microcytic anemia Status: Acute Assessment & Plan: Per Dr. Fermin, recent work up with colonoscopy and iron infusion. PRBCs ordered (4) Atherosclerotic heart disease of [place] coronary artery without angina pectoris Status: Chronic Assessment & Plan: Stress test was schedule for 2 weeks from now, will reschedule (5) Ventricular tachycardia Status: Chronic Assessment & Plan: routine monitoring (6) Nonrheumatic mitral valve insufficiency Status: Chronic Assessment & Plan: no significant mitral stenosis on last echo (7) Essential hypertension Status: Chronic Assessment & Plan: well controlled on medical therapy, continue current therapy (8) Mixed hyperlipidemia Status: Chronic Assessment & Plan: PCP manages (9) Parkinson's disease Status: Chronic Assessment & Plan: PCP manages (10) JEANNA (obstructive sleep apnea) Status: Chronic Assessment & Plan: wears CPAP, PCP manages Recommendation AFib RVR: History of paroxysmal A Fib, stopped Amiodarone last July due to abnormal PFTs, started on Pradaxa to minimize stroke risk. Patient is refusing due to recent reported GI bleed. Increase COreg to 25mg BID, Add Cardizem 240mg daily. Start IV Amiodarone bolus and drip as was in SR until 0630. NPO at midnight. Plan DCCV at 0800 if does not self convert.Cardizem 15mg IV x 1 given to slow rate, and facilitate self conversion to SR. Cardiomyopathy: EF today is 30%, down from an EF of 45-50% in July. Increase Coreg. Start Entresto 24/26mg BID, LifeVest ordered. Thank you for allowing us to participate in the care of this patient, we will follow along with you. LEON DUBOSE APRN 01/09/17 0642: Past Medical History Current Medications Home Meds Active Scripts Amiodarone HCl (Pacerone) 200 Mg Tablet, 200 MG PO DAILY for 30 Days, #30 TAB 11 Refills Prov:CECI LEBRON APRN 01/10/17 Sacubitril/Valsartan (Entresto 24 mg-26 mg Tablet) 1 Each Tablet, 1 TAB PO BID for 30 Days, #60 TAB 5 Refills Prov:ANAND FERMIN DO 01/10/17 Carvedilol (Coreg) 12.5 Mg Tablet, 12.5 MG PO BIDWM for 30 Days, #60 TAB 5 Refills Prov:ANAND FERMIN DO 01/10/17 Potassium Chloride (Potassium Chloride) 20 Meq Tablet.er, 20 MEQ PO BIDWM for 30 Days, #60 TAB Take 1 tablet, by mouth, two times a day with meals. Prov:HARITHA ZELAYA MD 03/28/16 Reported Medications Bumetanide (Bumetanide) 1 Mg Tablet, 1 TAB PO BID, TAB 01/06/17 Tramadol HCl (Tramadol HCl) 50 Mg Tablet, 50 MG PO Q6HR Y for PAIN, TAB Take 1 tablet, by mouth, every 6 hours. 01/06/17 Methocarbamol (Methocarbamol) 750 Mg Tablet, 750 MG PO QID Y for PAIN, TAB Take 1 tablet, by mouth, 4 times a day. 01/06/17 Celecoxib (Celebrex) 200 Mg Capsule, 1 CAP PO DAILY, CAP 01/06/17 Carbidopa/Levodopa (Sinemet 25-100 mg Tablet) 1 Each Tablet, 1 TAB PO TID, #90 TAB 5 Refills 01/06/17 Dabigatran Etexilate Mesylate (Pradaxa) 150 Mg Capsule, 1 CAP PO BID, CAP TAKE WITH FULL GLASS OF WATER. Do not break, chew, open cap. 01/06/17 Silver Sulfadiazine (Silvadene) 20 Gm Cream..g. 01/06/17 Acetaminophen (Acetaminophen) 650 Mg Tablet.er, 650 MG PO BID Y for PAIN 11/23/15 B Complex with Vitamin C (Super B Complex-Vitamin C) 1 Each Tablet, 1 TAB PO DAILY 11/02/15 Ropinirole HCl (Ropinirole HCl) 2 Mg Tablet, 2 MG PO TID 11/02/15 Gabapentin (Gabapentin) 300 Mg Capsule, 300 MG PO BID 11/02/15 Albuterol Sulfate (Proair Hfa) 8.5 Gm Aerosol, 2 PUFF IH Q6H Y for SHORTNESS OF AIR 01/09/14 Metformin Hcl (Metformin Hcl) 500 Mg Tablet, 500 MG PO BIDWM 12/26/11 Discontinued Reported Medications Carvedilol (Carvedilol) 6.25 Mg Tablet, 1 TAB PO BIDWM, TAB BEST WITH FOOD. 01/06/17 Allergies: Coded Allergies: prednisone (Verified Allergy, Unknown, ANXIOUS, 01/06/17) dicyclomine (Verified Adverse Reaction, Severe, "MAKES ME VERY NERVOUS AND JITTERY", 01/06/17) aspirin (Verified Adverse Reaction, Unknown, CAUSES GI BLEEDING, 01/06/17) ciprofloxacin (Unverified Adverse Reaction, Unknown, HYPERACTIVE, 01/06/17) PER H&P Impression/Recommendation Recommendation On 01/08, About 6- 7pm, pt's HR 120's per RN. Pt went into A-fib this am and has been started on Amiodarone gtt and has received increased dose of Coreg. Cardizem boluses IV earlier and Started on Cardizem po today Pt has not received pain meds for a while. Given Tramadol and Tylenol. His HR came down to the 80's and 90's soon afterwards. He also received PRBCs with lasix after 1st unit. this am per RN. Mag and K+ is low - replaced with KCL 40 mEq po x2. Mag sulfate 2gm IV. RN just called and informed me that the hospitalist has put in orders for KCL and Mag replacement. I cancelled my orders. But informed RN if the KCL IV is painful and Zak will not tolerate it, to just stop it and call and I will give him the KCL po. RN said Zak has not slept all night because he is nervous about the DCCV and what time it is going to take place. [place], SLIP MIXER, note states he will undergo direct current cardioversion on 01/09 at 0800 if he does not convert with amiodarone IV. JHONY HINOJOSA MD 01/15/17 1157: Past Medical History Current Medications Home Meds Active Scripts Amiodarone HCl (Pacerone) 200 Mg Tablet, 200 MG PO DAILY for 30 Days, #30 TAB 11 Refills Prov:CECI LEBRON APRN 01/10/17 Sacubitril/Valsartan (Entresto 24 mg-26 mg Tablet) 1 Each Tablet, 1 TAB PO BID for 30 Days, #60 TAB 5 Refills Prov:ANAND FERMIN DO 01/10/17 Carvedilol (Coreg) 12.5 Mg Tablet, 12.5 MG PO BIDWM for 30 Days, #60 TAB 5 Refills Prov:ANAND FERMIN DO 01/10/17 Potassium Chloride (Potassium Chloride) 20 Meq Tablet.er, 20 MEQ PO BIDWM for 30 Days, #60 TAB Take 1 tablet, by mouth, two times a day with meals. Prov:HARITHA ZELAYA MD 03/28/16 Reported Medications Bumetanide (Bumetanide) 1 Mg Tablet, 1 TAB PO BID, TAB 01/06/17 Tramadol HCl (Tramadol HCl) 50 Mg Tablet, 50 MG PO Q6HR Y for PAIN, TAB Take 1 tablet, by mouth, every 6 hours. 01/06/17 Methocarbamol (Methocarbamol) 750 Mg Tablet, 750 MG PO QID Y for PAIN, TAB Take 1 tablet, by mouth, 4 times a day. 01/06/17 Celecoxib (Celebrex) 200 Mg Capsule, 1 CAP PO DAILY, CAP 01/06/17 Carbidopa/Levodopa (Sinemet 25-100 mg Tablet) 1 Each Tablet, 1 TAB PO TID, #90 TAB 5 Refills 01/06/17 Dabigatran Etexilate Mesylate (Pradaxa) 150 Mg Capsule, 1 CAP PO BID, CAP TAKE WITH FULL GLASS OF WATER. Do not break, chew, open cap. 01/06/17 Silver Sulfadiazine (Silvadene) 20 Gm Cream..g. 01/06/17 Acetaminophen (Acetaminophen) 650 Mg Tablet.er, 650 MG PO BID Y for PAIN 11/23/15 B Complex with Vitamin C (Super B Complex-Vitamin C) 1 Each Tablet, 1 TAB PO DAILY 11/02/15 Ropinirole HCl (Ropinirole HCl) 2 Mg Tablet, 2 MG PO TID 11/02/15 Gabapentin (Gabapentin) 300 Mg Capsule, 300 MG PO BID 11/02/15 Albuterol Sulfate (Proair Hfa) 8.5 Gm Aerosol, 2 PUFF IH Q6H Y for SHORTNESS OF AIR 01/09/14 Metformin Hcl (Metformin Hcl) 500 Mg Tablet, 500 MG PO BIDWM 12/26/11 Discontinued Reported Medications Carvedilol (Carvedilol) 6.25 Mg Tablet, 1 TAB PO BIDWM, TAB BEST WITH FOOD. 01/06/17 Allergies: Coded Allergies: prednisone (Verified Allergy, Unknown, ANXIOUS, 01/06/17) dicyclomine (Verified Adverse Reaction, Severe, "MAKES ME VERY NERVOUS AND JITTERY", 01/06/17) aspirin (Verified Adverse Reaction, Unknown, CAUSES GI BLEEDING, 01/06/17) ciprofloxacin (Unverified Adverse Reaction, Unknown, HYPERACTIVE, 01/06/17) PER H&P Impression/Recommendation Recommendation After examining the patient I agree with the above assessment. I am involved in the formulation of the patient's plan of care. CECI LEBRON APRN January 08, 2017 12:01 LENO DUBOSE APRN January 09, 2017 06:42 JHONY HINOJOSA MD January 15, 2017 11:57
--- NOTE | 2017-01-08 13:41 | DI ---
INDICATION: ITS.REASON: Cough PROCEDURE: CHEST 2-VIEWS UPRIGHT (PA \T\ LAT) Encounter: Initial COMPARISON: 01/06/2017 FINDINGS: The lungs are clear without evidence of focal abnormal airspace opacity. There is no pleural effusion or pneumothorax. There is moderate degenerative disc disease of the thoracic spine with mild wedging of a few of the mid thoracic vertebral bodies which appears to be remote, similar to prior exam. No paraspinal hematoma. There is moderate cardiomegaly and pulmonary vascular congestion without definite overt interstitial pulmonary edema. There is no significant skeletal abnormality. IMPRESSION: Cardiomegaly and pulmonary vascular congestion without overt CHF. .
[2017-01-08] MEDS ORDERED: FUROSEMIDE 20 MG/2 ML INJECTION IV ONE (14:00)
[2017-01-08] MEDS ORDERED: AMIODARONE 150 MG in NORMAL SALINE 100 ML IV ONE (16:30)
[2017-01-08] MEDS ORDERED: AMIODARONE 900 MG in NORMAL SALINE 500 ML IV SCH ×2 (16:30→22:30)
[2017-01-08] MEDS ORDERED: DILTIAZEM CD 240mg CAP (QD) PO SCH (16:30)
--- NOTE | 2017-01-08 17:23 | NUR ---
CM THIS WORKER MET WITH PT ON THIS DATE. INTRODUCED SELF AND ROLE OF CASE MANAGEMENT. PT IS PLANNING RETURN HOME. HAS ABILITY TO AFFORD MEDICATIONS. DENIES ANY NEEDS FOR HOME. PT REPORTED THAT IS A RN. PT WAS GIVEN THIS WORKER'S CONTACT INFORMATION AND ENCOURAGED TO CONTACT THIS WORKER WITH NEEDS.
--- NOTE | 2017-01-08 17:56 | NUR ---
DM Screen & Glycemic Control screen Diet order: Cardiac (patient refuses "diabetic" diet) BMI: 29.1 Estimated daily calorie needs: ~1780 RD spoke with patient who pleasantly explained that a diabetic diet makes his blood sugars too low and he is not interested in information about diabetes meal planning. RD encouraged patient to ask RN to call RD if he has nutrition concerns. EXt. [phone].
--- NOTE | 2017-01-08 18:09 | PNPDOC ---
Subjective Date DATE: 01/08/17 TIME: 17:55 Subjective Patient seen and examined. at the bedside. Zak was sleeping when I entered the room. He awakened easily. He stated he was starting to move more air and could cough. I reviewed the result of his respiratory panel with him. He has chronic A.fib, however his HR is elevated to 130s. He is also anemic and is currently receiving the 2 units PRBCs I order this AM. Ashish has been consulted to control HR. Associated Symptoms: fever/chills, shortness of breath, fast HR, irregular HR, weakness, fatigue Objective Vital Signs Vital signs Vital Signs 01/08/17 01/08/17 01/08/17 01/08/17 07:13 07:13 07:14 07:14 Pulse 135 126 126 Resp 22 B/P 131/90 Pulse Ox 95 01/08/17 01/08/17 01/08/17 01/08/17 07:48 08:00 09:16 11:47 Temp 98.1 Pulse 126 142 Resp 22 26 24 B/P 143/76 Pulse Ox 97 88 O2 Delivery Room Air 01/08/17 01/08/17 01/08/17 01/08/17 11:48 12:05 15:22 15:23 Temp 97.4 Pulse 88 97 123 Resp 18 24 B/P 119/67 Pulse Ox 92 93 O2 Delivery Room Air 01/08/17 15:39 Temp 97.9 Pulse 128 Resp 18 B/P 121/74 Pulse Ox 93 O2 Delivery Room Air Telemetry Rhythm: Atrial Fibrillation Height (Feet): 5 Height (Inches): 3.00 Weight (Kilograms): 74.400 Eyes (Brief) Eyes: FOUND: EOMI, PERRL, NOT FOUND: scleral icterus Neck (Brief) Neck Brief: NOT FOUND: JVD, adenopathy, carotid bruits, thyromegaly Respiratory (Brief) Respiratory Brief: FOUND: clear all bearden, equal bilaterally, rales, NOT FOUND : wheezes Comments diminished Cardiovascular (Brief) Cardiac: FOUND: murmur (1/6 systolic), NOT FOUND: gallop, pedal edema, regular rate (tachy), regular rhythm Abdomen (Brief) Abdominal: FOUND: BS normo active x4, soft, NOT FOUND: distended, hepatosplenomegaly, tender Extremities (Brief) Extremity : Extremity Finding: NOT FOUND: edema Lymphatic (Brief) Lymphatic Brief: NOT FOUND: adenopathy, lymphedema Musculoskeletal (Brief) Musculoskeletal Brief: NOT FOUND: deformity, spasm, tenderness Integumentary (Brief) Integumentary: FOUND: dry, pink, warm, NOT FOUND: rash Neurologic (Brief) Neurologic: FOUND: cranial 2-12 intact, motor, sensory, NOT FOUND: DTR 2/4 all extremities, cerebellar Psychiatric (Brief) Psychiatric: FOUND: alert, attentive, normal affect, oriented Laboratory Laboratory Laboratory Tests 01/08/17 04:38 Laboratory Tests 01/08/17 04:38 Radiology CXR reviewed Sepsis Diagnostic Criteria Sepsis Confirmed/Suspected Infection: Yes SIRS Criteria: WBC >=12,000 or <=4,000 Severe Sepsis SpO2 <90% or ventilated, Cardiac dysfunction Assessment & Plan Problems: (1) Respiratory distress Status: Acute Assessment & Plan: Entero/Rhino virus positive. (2) COPD (chronic obstructive pulmonary disease) Status: Chronic Qualifiers: COPD type: COPD with acute exacerbation Qualified Codes: J44.1 - Chronic obstructive pulmonary disease with (acute) exacerbation (3) Paroxysmal atrial fibrillation Status: Chronic Assessment & Plan: now with RVR (4) Hypernatremia Status: Acute (5) Leukocytosis Status: Acute (6) Microcytic anemia Status: Acute Assessment & Plan: Being worked up as outpatient - recent colonoscopy with polypectomy (polyps benign) and iron infusion (7) Type 2 diabetes mellitus Status: Chronic Assessment & Plan: on Metformin (8) Stage 2 chronic kidney disease Status: Chronic (9) Restless leg syndrome Status: Chronic (10) Chronic low back pain Status: Chronic (11) WON (generalized anxiety disorder) Status: Chronic (12) JEANNA (obstructive sleep apnea) Status: Chronic (13) CAD (coronary artery disease) Status: Chronic (14) Hypertension Status: Chronic (15) Non-ischemic cardiomyopathy Status: Chronic (16) CHF (congestive heart failure) Status: Chronic Qualifiers: Congestive heart failure type: diastolic Congestive heart failure chronicity: acute on chronic Qualified Codes: I50.33 - Acute on chronic diastolic (congestive) heart failure (17) Parkinson's disease Status: Chronic (18) Mixed hyperlipidemia Status: Chronic (19) Overweight (BMI 25.0-29.9) Status: Chronic Plan/Intensity of Service 01/07/17- Dr. Marion covering for Dr. Fermin. *COPD with exacerbation- Still quite wheezy and a bit SOA. O2 sats of 88% on RA requiring O2 noted on admission. Continue IV steroids and Ceftriaxone. Add Doxycycline to cover atypicals. Avoid Azithro given known AFib if at all possible. Assess Viral Resp PCR. Continue Duoneb, Acapella. Add Pulmicort. May need home nebs on discharge. will need ongoing hospital care- change to inpatient status. *HFpEF- Continue Coreg- adjust dosing given elevated HR and HTN. No need for NEGIN given pEF. Continue Tele. Pradaxa *Anemia- recent outpt. workup. Continue Pradaxa. Add PPI for GI protection. Add PO iron. Recent IV iron as outpt. Hold Celebrex due to increased risk of GI bleed. May want to change Pradaxa to Eliquis given side effect profile. *Possible lung mass- repeat CXR, PA & Lat. If persists- consider CT. *DM2- elevated BG due to IV steroids. Continue Metformin. Increase insulin dosing. Reg diet per pt request. *Parkinson's, chronic pain- continue home meds. Change Tramadol and Skelaxin to PRN per home dosing. Repeat labs in AM. Continue supportive care. Code Status Full Code Hospital Course Summary Disclaimer The hospital course summary below is not to be considered part of the above Progress Note. Hospital Course Summary 01/06/17 Admitted under hospitalist service to observation status for COPD exacerbation and elevated BNP. Solu-Medrol and DuoNeb were started in the emergency department. Will start Solu -Medrol 62.5 mg QID add Rocephin 1 g daily. Continue supportive care for coughing and COPD. Since he has SIRS criteria including leukocytosis, tachypnea and heart rate greater than 90, assess lactate and pro-calcitonin. Repeat chest x-ray in the morning. BNP was greater than 12,000, and he received an extra Bumex 2 mg IV in the ED. Continue with home Bumex dose 2 mg twice a day. Trend troponin. Initial was negative. Continue with home cardiac and parkinsonian medications. Microcytic anemia, more pronounced since last hospitalization. He has a scheduled EGD and colonoscopy for later this week. Hypernatremia, may worsen following diuresis. Recheck in the morning. Type 2 diabetes: Continue metformin and monitor sugars. Start sliding scale insulin, anticipate hyperglycemia secondary to steroids. Refuses diabetic diet ( states it causes opposite problems - hypoglycemia). Discussed with Dr. Marion, covering for Dr. Fermin. 01/07/17- Dr. Marion covering for Dr. Fermin. *COPD with exacerbation- Still quite wheezy and a bit SOA. O2 sats of 88% on RA requiring O2 noted on admission. Continue IV steroids and Ceftriaxone. Add Doxycycline to cover atypicals. Avoid Azithro given known AFib if at all possible. Assess Viral Resp PCR. Continue Duoneb, Acapella. Add Pulmicort. May need home nebs on discharge. will need ongoing hospital care- change to inpatient status. *HFpEF- Continue Coreg- adjust dosing given elevated HR and HTN. No need for NEGIN given pEF. Continue Tele. Pradaxa *Anemia- recent outpt. workup. Continue Pradaxa. Add PPI for GI protection. Add PO iron. Recent IV iron as outpt. Hold Celebrex due to increased risk of GI bleed. May want to change Pradaxa to Eliquis given side effect profile. *Possible lung mass- repeat CXR, PA & Lat. If persists- consider CT. *DM2- elevated BG due to IV steroids. Continue Metformin. Increase insulin dosing. Reg diet per pt request. *Parkinson's, chronic pain- continue home meds. Change Tramadol and Skelaxin to PRN per home dosing. Repeat labs in AM. Continue supportive care. 01/08/17: Antibiotics DCd, Extra dose of cardizem given for rapid HR. Transfusion of 2 units PRBCs given for heart patient with hgb < 10. ANAND FERMIN DO January 08, 2017 17:59
[2017-01-08] MEDS: CARVEDILOL 25 MG TABLET PO SCH (18:20)
--- NOTE | 2017-01-08 18:57 | NUR ---
Shift summary. VSS, aside from tachycardia and Afib. Second unit of blood in progress. Amiodarone drip started this afternoon. RA. CPAP at night. Up w/ standby. Droplet precautions for rhinovirus. Patient reports easily grouchy b/c of steroid. Possible cardioversion tomorrow if heart rhythm unable to be controlled. NPO after midnight. Good urine output in urinal.
--- NOTE | 2017-01-08 19:04 | ECHOF ---
DATE January 08, 2017 This is a two-dimensional echo with spectral Doppler, color-flow and M-mode. It was obtained in a patient with atrial fibrillation with rapid ventricular rate. Left atrium is dilated. Left ventricular end-diastolic dimension is normal. Left ventricular wall thickness is normal. LV systolic function is reduced with global hypokinesia with ejection fraction of about 30%. Right atrium is dilated. Right ventricle is normal. Aortic root dimension is normal. Mitral valve annulus is calcified. Mitral valve leaflets are normal with mild mitral regurgitation. Aortic valve shows mild fibrocalcific changes with no stenosis. Mild aortic insufficiency is present. Tricuspid valve shows mild tricuspid regurgitation with mild pulmonary hypertension with estimated pulmonary artery systolic pressure of 41. Pulmonary valve shows trace of pulmonary insufficiency. There is no pericardial effusion. IMPRESSION 1. Global hypokinesia with ejection fraction of about 30%. 2. Biatrial dilation. 3. Mitral annulus calcification with mild mitral regurgitation. 4. Aortic sclerosis with mild aortic insufficiency. 5. Mild tricuspid regurgitation with mild pulmonary hypertension with estimated pulmonary artery systolic pressure of 41. 6. Trace of pulmonary insufficiency. MTDD
[2017-01-08] MEDS: TRAMADOL 50 MG TABLET PO PRN (19:16)
--- NOTE | 2017-01-08 19:45 | NUR ---
Charting reviewed. This RN has reviewed student Mary Thompson's charting for 01/08.
[2017-01-08] MEDS: BENZONATATE 200 MG CAPSULE PO PRN (20:30)
[2017-01-08 22:26] LABS: HGB - HEMOGLOBIN 10.1 GM/DL (13.5-17.5)
[2017-01-09] VITALS (27 sets, daily range): BP systolic 102–135; BP diastolic 55–88; PULSE 50–105; RESP 16–22; TEMP 97.5–98.1; O2SAT 88–100
[2017-01-09 05:47] LABS: ANION GAP 13 MEQ/L (5-15); BUN/CREATININE RATIO 32 RATIO (6-26); CALCIUM 7.9 MG/DL (8.4-10.2); CHLORIDE 98 MEQ/L (98-107); CO2 - CARBON DIOXIDE 34 MEQ/L (22-30); CREATININE 0.9 MG/DL (0.8-1.5); GLOMERULAR FILTRATION RATE 82; GLUCOSE 135 MG/DL (75-110); MAGNESIUM 1.7 MG/DL (1.6-2.3); SODIUM 145 MEQ/L (134-144)
[2017-01-09 05:55] LABS: POTASSIUM 2.7 MEQ/L (3.6-5)
[2017-01-09] MEDS ORDERED: POTASSIUM CHLORIDE 20 MEQ TABLET PO ONE ×2 (06:10→09:30)
[2017-01-09] MEDS ORDERED: POTASSIUM CHLORIDE 20 MEQ TABLET PO SCH (06:15)
[2017-01-09] MEDS: INSULIN ASPART 100 UNIT/ML SQ PRN ×3 (06:20→19:58)
[2017-01-09] MEDS: BUDESONIDE INH.SOLN. 0.5mg/2ml NEB AEROSOL SCH ×2 (06:23→20:09)
[2017-01-09] MEDS: ALBUTEROL/IPRATROPIUM INHAL. 2.5mg-0.5mg/3ml Neb. AEROSOL SCH ×4 (06:23→20:10)
[2017-01-09] MEDS: OMEPRAZOLE 20 MG CAPSULE PO SCH (06:30)
[2017-01-09] MEDS ORDERED: POTASSIUM CHLORIDE 10 MEQ TABLET PO ONE (06:30)
[2017-01-09] MEDS: CARBIDOPA/LEVODOPA 25 MG/100 MG TABLET PO SCH ×3 (06:30→19:57)
[2017-01-09] MEDS ORDERED: NORMAL SALINE IV ONE (06:30)
[2017-01-09] MEDS ORDERED: MAGNESIUM SULFATE IV ONE (06:30)
[2017-01-09] MEDS ORDERED: MAGNESIUM SULFATE 1 G in D5W 100 ML IV ONE (06:45)
[2017-01-09 06:47] LABS: HGB - HEMOGLOBIN 10.2 GM/DL (13.5-17.5); MEAN PLATELET VOLUME 11.8 UM3 (9.4-12.4); RED BLOOD COUNT 4.25 M/MM3 (4.50-5.90); WBC - WHITE BLOOD COUNT 14.5 T/MM3 (4.5-11.0)
[2017-01-09] MEDS: POTASSIUM CHLORIDE 10 MEQ, LIDOCAINE 1% 10 MG in NORMAL SALINE 100 ML IV SCH ×4 (07:00→09:34)
[2017-01-09 07:09] LABS: BAND NEUTROPHILS # 0.3 T/MM3; LYMPHOCYTES # (MANUAL) 0.3 T/MM3 (1-4.8); NEUTROPHILS #(MANUAL)-ABSOLUTE 13.9 T/MM3 (1.8-7.7); NUCLEATED RED BLOOD CELLS 1; TOTAL CELLS COUNTED 100 %
[2017-01-09 07:11] LABS: ANISOCYTOSIS 2+; HYPOCHROMASIA 2+; POIKILOCYTOSIS 1+; POLYCHROMASIA 1+
--- NOTE | 2017-01-09 08:10 | NUR ---
CARDIOVERSION DR. LAWRENCE AT BEDSIDE FOR CARDIOVERSION AT THIS TIME. PATIENT IS ALERT AND ORIENTED AT THIS TIME. NO CONCERNS REPORTED.
[2017-01-09] MEDS ORDERED: AMIODARONE 200 MG TABLET PO ONE (08:30)
--- NOTE | 2017-01-09 08:52 | NUR ---
SHIFT SUMMARY PT IS A/O X 3. HE BECAME UPSET CONCERNING HIS MEDICATIONS. REVIEWED WITH PT WHY HE NEEDS TO TAKE PRADAXA. PT STATES HE IS HOLDING IT IN CASE HE NEEDS SURGERY. REMINDED PT WITH OUT HIS HEART FUNCTION WELL HE COULDN'T HAVE SURGERY. PT WAS NPO AT MIDNIGHT FOR CARDIOVERSION. CHECKED WITH HOUSE SUP IF SHE WOULD KNOW THE TIME OF THE CARDIOVERSION? SHE SAID THIS WOULD DEPEND ON THE PHYSICIAN. NOTIFIED DR LEMUS OF RUN OF [facility]. LAB WAS ORDER MAG. AND CMP. WHEN LAB WAS COMPLETED DR LEMUS WAS UPDATED. LENO DUBOSE CALLED X 2 TO REVIEW PT'S LABS. SHE PLACED ORDERS AT THE SAME TIME DR LEMUS CALLED TO NOTIFIED THIS NURSE HE HAD PLACED ORDERS. LENO DUBOSE WAS NOTIFIED OF THE ORDERS BY DR LEMUS. SHE ASKED FOR THE KCL 20 MG PO TO BE GIVEN PO WITH A CRACKER AND SIPS OF WATER. PT'S DAY NURSE WAS GIVEN REPORT OF THE 2 DIFFERENT ORDERS.
[2017-01-09 08:58] LABS: ANION GAP 13 MEQ/L (5-15); BUN/CREATININE RATIO 33 RATIO (6-26); CALCIUM 7.9 MG/DL (8.4-10.2); CHLORIDE 100 MEQ/L (98-107); CO2 - CARBON DIOXIDE 33 MEQ/L (22-30); CREATININE 0.9 MG/DL (0.8-1.5); GLOMERULAR FILTRATION RATE 82; GLUCOSE 187 MG/DL (75-110); POTASSIUM 3.3 MEQ/L (3.6-5); SODIUM 146 MEQ/L (134-144)
[2017-01-09] MEDS: FERROUS SULFATE 324 MG TABLET PO SCH ×2 (09:52→17:16)
[2017-01-09] MEDS: CARVEDILOL 25 MG TABLET PO SCH ×2 (09:55→17:21)
[2017-01-09] MEDS: ROPINIROLE 2 MG TABLET PO SCH ×3 (09:56→20:04)
[2017-01-09] MEDS: VITAMIN B COMP + C TABLET PO SCH (09:57)
[2017-01-09] MEDS: GABAPENTIN 300 MG CAPSULE PO SCH ×3 (09:57→20:04)
[2017-01-09] MEDS: DABIGATRAN 150 MG CAPSULE PO SCH ×2 (09:58→20:04)
[2017-01-09] MEDS: METFORMIN 500 MG TABLET PO SCH ×2 (09:59→17:16)
--- NOTE | 2017-01-09 10:50 | DI ---
LOCATION OF DICTATION: [facility] EXAM: CHEST, PA LATERAL HISTORY: ITS.REASON: respitory distress. viral URI COMPARISON: Compared to January 08, 2017 FINDINGS: The heart size is mildly enlarged. Central pulmonary vasculature is mildly prominent without evidence for overt CHF. The mediastinal configuration is unremarkable. There are no consolidating opacities. There is blunting the posterior costophrenic sulci which may reflect small effusions or pleural thickening. There is no evidence for a pneumothorax. The osseous structures are within normal limits. IMPRESSION: Mild cardiomegaly and mild prominence the central pulmonary vasculature without evidence for overt CHF. Blunting the posterior costophrenic sulci may reflect pleural thickening or small effusions. .
[2017-01-09] MEDS ORDERED: MIDAZOLAM 2mg/2ml INJECTION IV ONE (11:26)
[2017-01-09] MEDS ORDERED: SALINE FLUSH 10ml SYRINGE IVF ONE (11:26)
[2017-01-09] MEDS ORDERED: FENTANYL 100mcg/2ml INJECTION IV ONE (11:26)
--- NOTE | 2017-01-09 13:14 | DC CARDIOF ---
DATE OF PROCEDURE January 09, [address] Philippe Marion The patient is a 76-year-old gentleman who developed atrial fibrillation less than 36 hours ago and was referred for DC cardioversion. He was started on amiodarone and failed to convert to sinus. Informed consent was obtained after explaining the procedure and the potential risks to the patient who agreed to proceed with the procedure. PROCEDURE 1. DC cardioversion. Conscious sedation was performed using Versed and fentanyl. Anterior-posterior Zoll pads were applied. 360 joules of energy was delivered in a synchronized manner and patient converted from atrial fibrillation to sinus rhythm. He tolerated the procedure well with no complications. IMPRESSION 1. Successful DC cardioversion of atrial fibrillation to sinus rhythm. PLAN Will continue antiarrhythmics to maintain sinus and continue anticoagulation. MTDD
[2017-01-09] MEDS: ACETAMINOPHEN SR 650 MG TABLET PO PRN (14:03)
--- NOTE | 2017-01-09 15:10 | NUR ---
AGGRAVATION PATIENT IS IS VERY UPSET ABOUT THE ADDITIONAL MEDICATIONS HE KEEPS RECEIVING HERE AT THE HOSPITAL. SAYS STEROIDS MAKE HIM BECOME ANGRY. PATIENT RECEIVED SOLU-MEDROL THIS MORNING. HE SAYS HE IS HAVING A REACTION TO IT THIS TIME.
--- NOTE | 2017-01-09 15:16 | NUR ---
BGM 362 DR. FERMIN IS PAGED
--- NOTE | 2017-01-09 15:41 | NUR ---
BGM 362/S. DYLAN NO NEW ORDERS. SSI ADMIN PREVIOUSLY ORDERED. DR. FERMIN INQUIRERS OF HEART RHYTHM. PATIENT HAS BEEN SINUS BRADYCARDIA LOW 50's.
--- NOTE | 2017-01-09 16:42 | NUR ---
AFSHAN THIS WORKER MET WITH PT ON THIS DATE. THIS WORKER DISCUSSED REQUEST FROM REFRIGERATOR MOVER FOR LIFE VEST. PT REPORTED KNOWLEDGE OF THIS AND THAT HE HAS HAD A LIFE VEST IN THE PAST. PT DENIED ANY OTHER NEEDS AT THIS TIME. THIS WORKER WILL CONTINUE TO FOLLOW AND ASSIST IN DISCHARGE PLANNING.
--- NOTE | 2017-01-09 17:22 | NUR ---
HEART RATE 51 PATIENT HAS SCHEDULED COREG 25MG BID. COREG IS HELD FOR HR 51 PER Briana LEBRON. HUNG.
--- NOTE | 2017-01-09 18:01 | PNPDOC ---
Subjective Date DATE: 01/09/17 TIME: 17:55 Subjective Patient seen and examined. at bedside. Questions answered. Cardiology cardioverted him earlier this morning back to normal sinus rhythm. He maintains normal sinus rhythm at this time per monitor. He is feeling much better. He denies chest pain and is breathing much better. He has agitation with the addition of IV steroids, and because he is breathing much better I will stop this this evening. One concern is he seems to be sinus bradycardia with a heart rate of about 50 bpm. He is on amiodarone and Coreg so Coreg may need to be adjusted down. Associated Symptoms: irregular HR, weakness, fatigue Objective Vital Signs Vital signs Vital Signs 01/09/17 01/09/17 01/09/17 01/09/17 06:20 06:23 06:32 07:13 Temp 97.8 Pulse 92 100 91 Resp 24 20 B/P 135/88 Pulse Ox 93 92 O2 Delivery Room Air 01/09/17 01/09/17 01/09/17 01/09/17 07:48 08:00 08:07 08:13 Pulse 103 54 105 58 Resp B/P 108/59 115/61 119/71 Pulse Ox 91 97 95 O2 Delivery Room Air Nasal Cannula Nasal Cannula O2 Flow Rate 2.00 4.00 01/09/17 01/09/17 01/09/17 01/09/17 08:18 08:23 08:30 08:37 Pulse 66 58 55 53 Resp 20 B/P 118/81 109/55 102/56 107/57 Pulse Ox 95 96 99 100 O2 Delivery Nasal Cannula Nasal Cannula Nasal Cannula Nasal Cannula O2 Flow Rate 3.00 3.00 2.00 2.00 01/09/17 01/09/17 01/09/17 01/09/17 08:43 08:58 09:13 09:28 Pulse 53 54 99 50 Resp 16 B/P 115/62 109/60 107/61 114/65 Pulse Ox 98 98 97 96 O2 Delivery Nasal Cannula Nasal Cannula Nasal Cannula Room Air O2 Flow Rate 2.00 2.00 2.00 01/09/17 01/09/17 01/09/17 01/09/17 09:58 10:28 11:29 11:55 Pulse 55 57 54 55 Resp 16 B/P 111/64 109/65 119/64 Pulse Ox 88 90 93 O2 Delivery Room Air Room Air Room Air 01/09/17 01/09/17 01/09/17 01/09/17 11:55 12:14 12:15 15:30 Temp 98.1 Pulse 60 53 Resp 18 18 B/P 108/64 108/64 Pulse Ox 93 91 O2 Delivery Room Air 01/09/17 01/09/17 01/09/17 15:33 15:38 16:00 Temp 97.7 Pulse 53 51 Resp 18 16 B/P 107/63 Pulse Ox 93 95 O2 Delivery Room Air Telemetry Rhythm: Sinus Rhythm (bradycardia with a rate of 50) Height (Feet): 5 Height (Inches): 3.00 Weight (Kilograms): 72.800 General General Appearance: Alert, Orientated x 3, Cooperative, No Acute Distress Eyes (Brief) Eyes: FOUND: EOMI, PERRL, NOT FOUND: scleral icterus Neck (Brief) Neck Brief: NOT FOUND: JVD, adenopathy, carotid bruits, thyromegaly Respiratory (Brief) Respiratory Brief: FOUND: wheezes (expiratory), NOT FOUND: clear all bearden Comments Scattered rhonchi throughout Cardiovascular (Brief) Cardiac: FOUND: regular rhythm, NOT FOUND: gallop, murmur, pedal edema, regular rate (bradycardic) Abdomen (Brief) Abdominal: FOUND: BS normo active x4, soft, NOT FOUND: distended, hepatosplenomegaly, tender Extremities (Brief) Extremity : Extremity Finding: NOT FOUND: edema Lymphatic (Brief) Lymphatic Brief: NOT FOUND: adenopathy, lymphedema Musculoskeletal (Brief) Musculoskeletal Brief: NOT FOUND: deformity, loss of motion, spasm, tenderness Integumentary (Brief) Integumentary: FOUND: dry, pink, warm, NOT FOUND: rash Neurologic (Brief) Neurologic: FOUND: cranial 2-12 intact, motor, sensory Psychiatric (Brief) Psychiatric: FOUND: alert, attentive, oriented, NOT FOUND: normal affect ( mildly anxious) Laboratory Laboratory Laboratory Tests 01/08/17 22:19 01/09/17 05:19 Laboratory Tests 01/09/17 05:19 01/09/17 08:24 Sepsis Diagnostic Criteria Sepsis Confirmed/Suspected Infection: Yes SIRS Criteria: WBC >=12,000 or <=4,000 Severe Sepsis SpO2 <90% or ventilated, Cardiac dysfunction Assessment & Plan Problems: (1) Respiratory distress Status: Acute Assessment & Plan: Entero/Rhino virus positive. Markedly improved (2) COPD (chronic obstructive pulmonary disease) Status: Resolved Qualifiers: COPD type: COPD with acute exacerbation Qualified Codes: J44.1 - Chronic obstructive pulmonary disease with (acute) exacerbation (3) Paroxysmal atrial fibrillation Status: Resolved Assessment & Plan: now with RVR. 01/09 cardioverted to normal sinus rhythm (4) Hypernatremia Status: Resolved (5) Leukocytosis Status: Acute (6) Microcytic anemia Status: Acute Assessment & Plan: Being worked up as outpatient - recent colonoscopy with polypectomy (polyps benign) and iron infusion. 01/09 transfused 2 units packed red blood cells (7) Type 2 diabetes mellitus Status: Chronic Assessment & Plan: on Metformin (8) Stage 2 chronic kidney disease Status: Chronic (9) Restless leg syndrome Status: Chronic (10) Chronic low back pain Status: Chronic (11) WON (generalized anxiety disorder) Status: Chronic (12) JEANNA (obstructive sleep apnea) Status: Chronic (13) CAD (coronary artery disease) Status: Chronic (14) Hypertension Status: Chronic (15) Non-ischemic cardiomyopathy Status: Chronic (16) CHF (congestive heart failure) Status: Chronic Qualifiers: Congestive heart failure type: diastolic Congestive heart failure chronicity: acute on chronic Qualified Codes: I50.33 - Acute on chronic diastolic (congestive) heart failure (17) Parkinson's disease Status: Chronic (18) Mixed hyperlipidemia Status: Chronic (19) Overweight (BMI 25.0-29.9) Status: Chronic Plan/Intensity of Service 01/07/17- Dr. Marion covering for Dr. Fermin. *COPD with exacerbation- Still quite wheezy and a bit SOA. O2 sats of 88% on RA requiring O2 noted on admission. Continue IV steroids and Ceftriaxone. Add Doxycycline to cover atypicals. Avoid Azithro given known AFib if at all possible. Assess Viral Resp PCR. Continue Duoneb, Acapella. Add Pulmicort. May need home nebs on discharge. will need ongoing hospital care- change to inpatient status. *HFpEF- Continue Coreg- adjust dosing given elevated HR and HTN. No need for NEGIN given pEF. Continue Tele. Pradaxa *Anemia- recent outpt. workup. Continue Pradaxa. Add PPI for GI protection. Add PO iron. Recent IV iron as outpt. Hold Celebrex due to increased risk of GI bleed. May want to change Pradaxa to Eliquis given side effect profile. *Possible lung mass- repeat CXR, PA & Lat. If persists- consider CT. *DM2- elevated BG due to IV steroids. Continue Metformin. Increase insulin dosing. Reg diet per pt request. *Parkinson's, chronic pain- continue home meds. Change Tramadol and Skelaxin to PRN per home dosing. Repeat labs in AM. Continue supportive care. Code Status Full Code Hospital Course Summary Disclaimer The hospital course summary below is not to be considered part of the above Progress Note. Hospital Course Summary 01/06/17 Admitted under hospitalist service to observation status for COPD exacerbation and elevated BNP. Solu-Medrol and DuoNeb were started in the emergency department. Will start Solu -Medrol 62.5 mg QID add Rocephin 1 g daily. Continue supportive care for coughing and COPD. Since he has SIRS criteria including leukocytosis, tachypnea and heart rate greater than 90, assess lactate and pro-calcitonin. Repeat chest x-ray in the morning. BNP was greater than 12,000, and he received an extra Bumex 2 mg IV in the ED. Continue with home Bumex dose 2 mg twice a day. Trend troponin. Initial was negative. Continue with home cardiac and parkinsonian medications. Microcytic anemia, more pronounced since last hospitalization. He has a scheduled EGD and colonoscopy for later this week. Hypernatremia, may worsen following diuresis. Recheck in the morning. Type 2 diabetes: Continue metformin and monitor sugars. Start sliding scale insulin, anticipate hyperglycemia secondary to steroids. Refuses diabetic diet ( states it causes opposite problems - hypoglycemia). Discussed with Dr. Marion, covering for Dr. Fermin. 01/07/17- Dr. Marion covering for Dr. Fermin. *COPD with exacerbation- Still quite wheezy and a bit SOA. O2 sats of 88% on RA requiring O2 noted on admission. Continue IV steroids and Ceftriaxone. Add Doxycycline to cover atypicals. Avoid Azithro given known AFib if at all possible. Assess Viral Resp PCR. Continue Duoneb, Acapella. Add Pulmicort. May need home nebs on discharge. will need ongoing hospital care- change to inpatient status. *HFpEF- Continue Coreg- adjust dosing given elevated HR and HTN. No need for NEGIN given pEF. Continue Tele. Pradaxa *Anemia- recent outpt. workup. Continue Pradaxa. Add PPI for GI protection. Add PO iron. Recent IV iron as outpt. Hold Celebrex due to increased risk of GI bleed. May want to change Pradaxa to Eliquis given side effect profile. *Possible lung mass- repeat CXR, PA & Lat. If persists- consider CT. *DM2- elevated BG due to IV steroids. Continue Metformin. Increase insulin dosing. Reg diet per pt request. *Parkinson's, chronic pain- continue home meds. Change Tramadol and Skelaxin to PRN per home dosing. Repeat labs in AM. Continue supportive care. 01/08/17: Antibiotics DCd, Extra dose of cardizem given for rapid HR. Transfusion of 2 units PRBCs given for heart patient with hgb < 10. 01/09/2017: Patient has improved markedly. He received his 2 units of packed red blood cells last evening. He was cardioverted to normal sinus rhythm earlier this morning. I have stopped his Solu-Medrol. I will check his lab in the morning to assure that his potassium is back up to within normal limits. If he is still improved time planning to discharge him tomorrow ANAND FERMIN DO January 09, 2017 17:58
--- NOTE | 2017-01-09 19:25 | NUR ---
STATUS PATIENT IS NOW RESTING IN BED QUIETLY. APPLIES HIS OWN BIPAP . NO NEW CONCERNS THIS EVENING.
[2017-01-09] MEDS: BENZONATATE 200 MG CAPSULE PO PRN (22:50)
[2017-01-10 00:44] VITALS: BP 137/71; PULSE 55; RESP 16; TEMP 97.4; O2SAT 95
--- NOTE | 2017-01-10 04:42 | NUR ---
A&O, DENIES PAIN, PT HAS NOT BEEN TO SLEEP MUCH TONIGHT, SATED THAT ITS NORMAL FOR HIM NOT TO SLEEP AT NIGHT. APPLIES OWN CPAP WHEN NEEDED. RA. VSS.
[2017-01-10 05:25] LABS: HCT - HEMATOCRIT 36.3 % (41-53); MEAN CORPUSCULAR HGB 24.6 UUG (26-34); MEAN CORPUSCULAR HGB CONC(MCHC 30.3 GM/DL (31-37); MEAN PLATELET VOLUME 11.4 UM3 (9.4-12.4); RED BLOOD COUNT 4.48 M/MM3 (4.50-5.90); WBC - WHITE BLOOD COUNT 12.2 T/MM3 (4.5-11.0)
[2017-01-10 05:35] LABS: ALBUMIN 3.1 G/DL (3.5-5.0); ANION GAP 11 MEQ/L (5-15); BUN/CREATININE RATIO 33 RATIO (6-26); CALCIUM 8.1 MG/DL (8.4-10.2); CHLORIDE 96 MEQ/L (98-107); CO2 - CARBON DIOXIDE 35 MEQ/L (22-30); CREATININE 0.9 MG/DL (0.8-1.5); GLOMERULAR FILTRATION RATE 82; GLUCOSE 207 MG/DL (75-110); MAGNESIUM 2.4 MG/DL (1.6-2.3); PHOSPHORUS 3.1 MG/DL (2.5-4.5); POTASSIUM 3.3 MEQ/L (3.6-5); SODIUM 142 MEQ/L (134-144)
[2017-01-10] MEDS: TRAMADOL 50 MG TABLET PO PRN (05:55)
[2017-01-10] MEDS: CARBIDOPA/LEVODOPA 25 MG/100 MG TABLET PO SCH ×2 (05:56→14:18)
[2017-01-10] MEDS: OMEPRAZOLE 20 MG CAPSULE PO SCH (05:56)
[2017-01-10 06:30] LABS: BAND NEUTROPHILS # 0.1 T/MM3; LYMPHOCYTES # (MANUAL) 0.5 T/MM3 (1-4.8); MONOCYTES # (MANUAL) 0.1 T/MM3 (0-0.8); NEUTROPHILS #(MANUAL)-ABSOLUTE 11.5 T/MM3 (1.8-7.7); TOTAL CELLS COUNTED 100 %
[2017-01-10 06:31] LABS: ANISOCYTOSIS 2+; POIKILOCYTOSIS 1+
[2017-01-10] MEDS: INSULIN ASPART 100 UNIT/ML SQ PRN ×2 (06:50→10:40)
[2017-01-10 07:19] VITALS: BP 136/78; PULSE 61; RESP 18; TEMP 97.6; O2SAT 92
[2017-01-10 07:29] VITALS: PULSE 61
[2017-01-10] MEDS ORDERED: CARVEDILOL 12.5 MG TABLET PO SCH (08:00)
[2017-01-10 08:22] VITALS: O2SAT 94
[2017-01-10] MEDS: BUDESONIDE INH.SOLN. 0.5mg/2ml NEB AEROSOL SCH (08:22)
[2017-01-10] MEDS: ALBUTEROL/IPRATROPIUM INHAL. 2.5mg-0.5mg/3ml Neb. AEROSOL SCH ×2 (08:22→11:17)
[2017-01-10] MEDS: GABAPENTIN 300 MG CAPSULE PO SCH ×2 (08:55→14:18)
[2017-01-10] MEDS: DABIGATRAN 150 MG CAPSULE PO SCH (08:55)
[2017-01-10] MEDS: FERROUS SULFATE 324 MG TABLET PO SCH (08:55)
[2017-01-10] MEDS: METFORMIN 500 MG TABLET PO SCH (08:56)
[2017-01-10] MEDS: VITAMIN B COMP + C TABLET PO SCH (08:56)
[2017-01-10] MEDS: ROPINIROLE 2 MG TABLET PO SCH ×2 (08:56→14:18)
[2017-01-10] MEDS ORDERED: BUMETANIDE 1 MG TABLET PO SCH (09:00)
[2017-01-10] MEDS ORDERED: POTASSIUM CHLORIDE 20 MEQ TABLET PO ONE (09:00)
[2017-01-10] MEDS ORDERED: AMIODARONE 200 MG TABLET PO SCH (09:00)
[2017-01-10 11:17] VITALS: O2SAT 97
--- NOTE | 2017-01-10 12:28 | NUR ---
Status Patient ambulated in halls with stand by assist and cane. Denied SOA with ambulation. Good intake. Sore from coughing.
--- NOTE | 2017-01-10 13:40 | PNPDOC ---
CECI LEBRON PATIENT FINANCIAL REPRESENTATIVE 01/10/17 1218: Subjective Date DATE: 01/10/17 TIME: 12:15 Subjective Almas is in his room on Medical, denies cardiac complaints this morning. Apologizes for being "grumpy" and states his appreciation for our care. Objective Vital Signs Vital signs Vital Signs 01/10/17 01/10/17 01/10/17 01/10/17 00:44 07:19 07:29 08:22 Temp 97.4 97.6 Pulse 55 61 61 Resp 16 18 20 B/P 137/71 136/78 Pulse Ox 95 92 94 O2 Delivery Room Air Room Air 01/10/17 01/10/17 01/10/17 01/10/17 08:22 08:42 11:17 11:17 Pulse 64 62 56 Resp 20 Pulse Ox 97 01/10/17 11:26 Pulse 56 Telemetry Rhythm: Sinus Rhythm (bradycardia with a rate of 50) Height (Feet): 5 Height (Inches): 3.00 Weight (Kilograms): 73.900 General Alert, Orientated x 3, Cooperative ENMT (Brief) mucosa moist Neck (Brief) NOT FOUND: JVD, carotid bruits Respiratory (Brief) equal bilaterally, rales (bibasilar), NOT FOUND: clear all bearden Cardiovascular (Brief) regular rate, regular rhythm, NOT FOUND: click, gallop, murmur, pedal edema, rub Abdomen (Brief) BS normo active x4, soft Integumentary (Brief) dry, pink, warm Psychiatric (Brief) alert, attentive, oriented Laboratory Laboratory Laboratory Tests Test 01/08/17 14:01 01/08/17 21:39 01/08/17 22:19 01/09/17 05:19 Glucometer 183mg/dL 312mg/dL Hemoglobin 10.1GM/DL 10.2GM/DL White Blood Count 14.5T/MM3 Red Blood Count 4.25M/MM3 Hematocrit 34.0% Mean Corpuscular Volume 80.0UM3 Mean Corpuscular Hemoglobin 24.0UUG Mean Corpuscular Hemoglobin Concent 30.0GM/DL RDW Standard Deviation 50.3FL Platelet Count 248T/MM3 Mean Platelet Volume 11.8UM3 Immature Granulocyte % (Auto) % Neutrophils (%) (Auto) % Lymphocytes (%) (Auto) % Monocytes (%) (Auto) % Eosinophils (%) (Auto) % Basophils (%) (Auto) % Absolute Immature Granulocyte (auto T/MM3 Absolute Neutrophils (auto) T/MM3 Absolute Lymphocytes (auto) T/MM3 Absolute Monocytes (auto) T/MM3 Absolute Eosinophils (auto) T/MM3 Absolute Basophils (auto) T/MM3 Neutrophils % (Manual) 96.0% Band Neutrophils % 2.0% Lymphocytes % (Manual) 2.0% Absolute Neutrophils (Manual) 13.9T/MM3 Band Neutrophils # 0.3T/MM3 Lymphocytes # (Manual) 0.3T/MM3 Nucleated Red Blood Cells 1 Polychromasia 1+ Hypochromasia 2+ Poikilocytosis 1+ Basophilic Stippling 1+ Anisocytosis 2+ Red Cell Morphology Comment Abnormal Turbidity < 20 Sodium Level 145MEQ/L Potassium Level 2.7MEQ/L Chloride Level 98MEQ/L Carbon Dioxide Level 34MEQ/L Anion Gap 13MEQ/L Blood Urea Nitrogen 29.0MG/DL Creatinine 0.9MG/DL Glomerular Filtration Rate Calc 82 BUN/Creatinine Ratio 32RATIO Glucose Level 135MG/DL Calculated Osmolality 287MOSM/KG Calcium Level 7.9MG/DL Magnesium Level 1.7MG/DL Icterus Index < 2 Chemistry Specimen Hemolysis < 15 Test 01/09/17 05:36 01/09/17 08:24 01/09/17 10:15 01/09/17 13:55 Glucometer 159mg/dL 220mg/dL 372mg/dL Turbidity < 20 Sodium Level 146MEQ/L Potassium Level 3.3MEQ/L Chloride Level 100MEQ/L Carbon Dioxide Level 33MEQ/L Anion Gap 13MEQ/L Blood Urea Nitrogen 30.0MG/DL Creatinine 0.9MG/DL Glomerular Filtration Rate Calc 82 BUN/Creatinine Ratio 33RATIO Glucose Level 187MG/DL Calculated Osmolality 292MOSM/KG Calcium Level 7.9MG/DL Icterus Index < 2 Chemistry Specimen Hemolysis 72 Test 01/09/17 14:58 01/09/17 19:42 01/10/17 04:23 01/10/17 10:10 Glucometer 362mg/dL 296mg/dL 291mg/dL White Blood Count 12.2T/MM3 Red Blood Count 4.48M/MM3 Hemoglobin 11.0GM/DL Hematocrit 36.3% Mean Corpuscular Volume 81.0UM3 Mean Corpuscular Hemoglobin 24.6UUG Mean Corpuscular Hemoglobin Concent 30.3GM/DL RDW Standard Deviation 55.6FL Platelet Count 254T/MM3 Mean Platelet Volume 11.4UM3 Immature Granulocyte % (Auto) % Neutrophils (%) (Auto) % Lymphocytes (%) (Auto) % Monocytes (%) (Auto) % Eosinophils (%) (Auto) % Basophils (%) (Auto) % Absolute Immature Granulocyte (auto T/MM3 Absolute Neutrophils (auto) T/MM3 Absolute Lymphocytes (auto) T/MM3 Absolute Monocytes (auto) T/MM3 Absolute Eosinophils (auto) T/MM3 Absolute Basophils (auto) T/MM3 Neutrophils % (Manual) 94.0% Band Neutrophils % 1.0% Lymphocytes % (Manual) 4.0% Monocytes % (Manual) 1.0% Absolute Neutrophils (Manual) 11.5T/MM3 Band Neutrophils # 0.1T/MM3 Lymphocytes # (Manual) 0.5T/MM3 Monocytes # (Manual) 0.1T/MM3 Poikilocytosis 1+ Anisocytosis 2+ Red Cell Morphology Comment Abnormal Turbidity < 20 Sodium Level 142MEQ/L Potassium Level 3.3MEQ/L Chloride Level 96MEQ/L Carbon Dioxide Level 35MEQ/L Anion Gap 11MEQ/L Blood Urea Nitrogen 30.0MG/DL Creatinine 0.9MG/DL Glomerular Filtration Rate Calc 82 BUN/Creatinine Ratio 33RATIO Glucose Level 207MG/DL Calculated Osmolality 285MOSM/KG Calcium Level 8.1MG/DL Phosphorus Level 3.1MG/DL Magnesium Level 2.4MG/DL Icterus Index < 2 Albumin 3.1G/DL Chemistry Specimen Hemolysis < 15 Laboratory Tests 01/10/17 04:23 Laboratory Tests 01/10/17 04:23 Medications Current Medications Bumetanide 2 mg 2 mg O ONCE IV Last administered on 01/06/17 15:26; Start 01/06 at 15:15; Stop 01/06/17 at 15:16; Status DC Ceftriaxone Sodium 1 g/Sodium Chloride 100 ml @ 100 mls/hr O ONCE IV Last administered on 01/06/17 17:10; Start 01/06/17 at 16:30; Stop 01/07/17 at 06:18; Status DC Ceftriaxone Sodium/Sodium Chloride (Rocephin/NS) 100 ml @ 200 mls/hr DAILY IV Last administered on 01/08/17 08:15; Start 01/07/17 at 09:00; Stop 01/08/17 at 13: 23; Status DC Senna/Docusate Sodium (Senna Plus) 2 tab BID PRN PO CONSTIPATION Last administered on 01/09/17 09:53; Start 01/06/17 at 16:30 Magnesium Hydroxide (Mom) 30 ml DAILY PRN PO CONSTIPATION; Start 01/06/17 at 16: 30 Chlorphenir/ Hydrocodone Polistirex (Tussionex) 5 ml Q12HR PRN PO COUGH Last administered on 01/10/17 05:55; Start 01/06/17 at 16:30 Menthol (Ricola Sf) 1 keily PRN PRN MM COUGH Last administered on 01/10/17 02:44 ; Start 01/06/17 at 16:30 Benzonatate (TESSALON PERLES 200 mg) 200 mg TID PRN PO COUGH Last administered on 01/09/17 22:50; Start 01/06/17 at 16:30 Bisacodyl (Dulcolax) 10 mg BID PRN RECTALLY CONSTIPATION; Start 01/06/17 at 16: 30 Acetaminophen (Tylenol Arthritis) 650 mg BID PRN PO PAIN Last administered on 14:03; Start 01/06/17 at 16:30 Vitamin B Complex (Total B + C) 1 tab DAILY PO Last administered on 01/10/17 08:56; Start 01/07/17 at 09:00 Celecoxib (CeleBREX) 200 mg DAILY PO Last administered on 01/07/17 08:47; Start 01/07/17 at 09:00; Status Future Hold Dabigatran (Pradaxa) 150 mg BID PO Last administered on 01/10/17 08:55; Start 01/06/17 at 21:00 Gabapentin (Neurontin) 300 mg TID PO Last administered on 01/10/17 08:55; Start 01/06/17 at 21:00 Lisinopril (Prinivil) 2.5 mg DAILY PO ; Start 01/07/17 at 09:00; Stop 01/07/17 at 09:00; Status DC Metformin HCl (Glucophage) 500 mg BIDWM PO Last administered on 01/10/17 08:56 ; Start 01/06/17 at 17:30 Ropinirole HCl (Requip) 2 mg TID PO Last administered on 01/10/17 08:56; Start 01/06/17 at 21:00 Ondansetron HCl (Zofran) 4 mg Q6H PRN IV NAUSEA &/OR VOMITING; Start 01/07/17 at 00:45; Status UNV Methocarbamol (Robaxin) 750 mg QID PRN PO PAIN &/OR SPASM; Start 01/07/17 at 11: 30 Insulin Aspart (Novolog) SS PRN SQ Last administered on 01/10/17 10:40; Start 01/07/17 at 11:30 Tramadol HCl (Ultram) 50 mg Q6HR PRN PO PAIN Last administered on 01/10/17 05: 55; Start 01/07/17 at 11:30 Doxycycline Hyclate (Vibramycin) 100 mg BIDWM PO Last administered on 01/08/17 08:16; Start 01/07/17 at 11:30; Stop 01/08/17 at 13:23; Status DC Budesonide (PULMICORT 0.5mg/ 2ml) 0.5 mg RTBID AEROSOL Last administered on 08:22; Start 01/07/17 at 21:00 Omeprazole (Prilosec) 20 mg ACB PO Last administered on 01/10/17 05:56; Start 01/08/17 at 06:30 Ferrous Sulfate (Feosol) 324 mg BIDWM PO Last administered on 01/10/17 08:55; Start 01/07/17 at 17:30 Insulin Glargine (Lantus) 8 unit O ONCE SQ Last administered on 01/07/17 17:42 ; Start 01/07/17 at 16:15; Stop 01/08/17 at 06:15; Status DC Carbidopa/Levodopa (Sinemet 25/100) 1 tab TID/E PO Last administered on 05:56; Start 01/08/17 at 14:00 Furosemide 20 mg 20 mg O ONCE IV Last administered on 01/08/17 16:33; Start at 14:00; Stop 01/08/17 at 14:01; Status DC Sodium Chloride (NS) 500 ml @ 0 mls/hr Q0M IV Last administered on 01/08/17 11: 42; Start 01/08/17 at 10:43; Stop 01/08/17 at 23:59; Status DC Diltiazem HCl (Cardizem) 15 mg O ONCE IV Last administered on 01/08/17 13:55; Start 01/08/17 at 13:30; Stop 01/08/17 at 13:31; Status DC Diltiazem HCl (Cardizem Cd) 240 mg DAILY PO Last administered on 01/08/17 17:31 ; Start 01/08/17 at 16:30; Stop 01/10/17 at 08:50; Status DC Sacubitril/ Valsartan 1 tab 1 tab BID PO Last administered on 01/10/17 08:55; Start 01/08/17 at 16:30 Amiodarone HCl 150 mg/Sodium Chloride 103 ml @ 600 mls/hr NOW ONCE IV Last administered on 01/08/17 17:35; Start 01/08/17 at 16:30; Stop 01/08/17 at 16:48; Status DC Amiodarone HCl 900 mg/Sodium Chloride 518 ml @ 33.33 mls/ hr [id number] IV Last administered on 01/08/17 17:52; Start 01/08/17 at 16:30; Stop 01/08/17 at 22:30; Status DC Amiodarone HCl/ Sodium Chloride (Cordarone/NS) 518 ml @ 16.67 mls/ hr Q24H IV Last administered on 01/09/17 00:00; Start 01/08/17 at 22:30; Stop 01/09/17 at 08: 21; Status DC Potassium Chloride 40 meq 40 meq 0610 ONCE PO ; Start 01/09/17 at 06:10; Stop at 06:23; Status DC Magnesium Sulfate/ Sodium Chloride (Magnesium Sulfate/NS) 104 ml @ 25 mls/hr O ONCE IV Last administered on 01/09/17 07:22; Start 01/09/17 at 06:30; Stop 01/09/17 at 10:39; Status DC Potassium Chloride 20 meq 20 meq O ONCE PO Last administered on 01/09/17 07:21 ; Start 01/09/17 at 06:30; Stop 01/09/17 at 06:38; Status DC Potassium Chloride 10 meq/ Lidocaine HCl 10 mg/Sodium Chloride 106 ml @ 100 mls /hr Q1H4M IV ; Start 01/09/17 at 07:00; Stop 01/09/17 at 09:38; Status DC Magnesium Sulfate/ Dextrose/Water (Magnesium Sulfate/D5W) 102 ml @ 100 mls/hr O ONCE IV ; Start 01/09/17 at 06:45; Stop 01/09/17 at 06:45; Status DC Amiodarone HCl (Pacerone) 200 mg DAILY PO Last administered on 01/10/17 08:55 ; Start 01/10/17 at 09:00 Bumetanide (BUMEX 1 mg TAB) 2 mg DAILY PO Last administered on 01/10/17 08:56 ; Start 01/10/17 at 09:00 Methylprednisolone Sodium Succinate (Solu-Medrol) 62.5 mg Q12HR IV Last administered on 01/09/17 09:52; Start 01/09/17 at 09:00; Stop 01/09/17 at 17:55; Status DC Albuterol/ Ipratropium (Duoneb) 3 ml RTQID AEROSOL Last administered on 11:17; Start 01/09/17 at 11:00 Fentanyl (Fentanyl) 100 mcg STK-MED ONCE IV ; Start 01/09/17 at 11:26; Stop at 11:27; Status DC Sodium Chloride (Iv Flush) 10 ml STK-MED ONCE IVF ; Start 01/09/17 at 11:26; Stop 01/09/17 at 11:27; Status DC Midazolam HCl (Versed) 2 mg STK-MED ONCE IV ; Start 01/09/17 at 11:26; Stop at 11:27; Status DC Carvedilol (Coreg) 12.5 mg BIDWM PO Last administered on 01/10/17 09:01; Start 01/10/17 at 08:00 Potassium Chloride (Kdur) 40 meq WB PO ; Start 01/11/17 at 08:00 Sepsis Diagnostic Criteria Sepsis Confirmed/Suspected Infection: Yes SIRS Criteria: WBC >=12,000 or <=4,000 Severe Sepsis SpO2 <90% or ventilated, Cardiac dysfunction Assessment & Plan Problems: (1) Atrial flutter with rapid ventricular response Status: Acute Assessment & Plan: History of paroxysmal A Fib, stopped Amiodarone last July due to abnormal PFTs, started on Pradaxa to minimize stroke risk. Patient is refusing due to recent reported GI bleed. Increase COreg to 25mg BID , Add Cardizem 240mg daily. Start IV Amiodarone bolus and drip as was in SR until 629. NPO at midnight. Plan DCCV at 0800 if does not self convert. (2) Non-ischemic cardiomyopathy Status: Chronic Assessment & Plan: EF today is 30%, down from an EF of 45-50% in July. Increase Coreg. Start Entresto 24/26mg BID, LifeVest ordered (3) Microcytic anemia Status: Acute Assessment & Plan: Per Dr. Mayfield, recent work up with colonoscopy and iron infusion. PRBCs ordered (4) Atherosclerotic heart disease of havasupai coronary artery without angina pectoris Status: Chronic Assessment & Plan: Stress test was schedule for 2 weeks from now, will reschedule (5) Ventricular tachycardia Status: Chronic Assessment & Plan: routine monitoring (6) Nonrheumatic mitral valve insufficiency Status: Chronic Assessment & Plan: no significant mitral stenosis on last echo (7) Essential hypertension Status: Chronic Assessment & Plan: well controlled on medical therapy, continue current therapy (8) Mixed hyperlipidemia Status: Chronic Assessment & Plan: PCP manages (9) Parkinson's disease Status: Chronic Assessment & Plan: PCP manages (10) JEANNA (obstructive sleep apnea) Status: Chronic Assessment & Plan: wears CPAP, PCP manages Plan/Intensity of Service 01/08/17 AFib RVR: History of paroxysmal A Fib, stopped Amiodarone last July due to abnormal PFTs, started on Pradaxa to minimize stroke risk. Patient is refusing due to recent reported GI bleed. Increase COreg to 25mg BID, Add Cardizem 240mg daily. Start IV Amiodarone bolus and drip as was in SR until 629. NPO at midnight. Plan DCCV at 0800 if does not self convert.Cardizem 15mg IV x 1 given to slow rate, and facilitate self conversion to SR. Cardiomyopathy: EF today is 30%, down from an EF of 45-50% in July. Increase Coreg. Start Entresto 24/26mg BID, LifeVest ordered. On 01/08, About 6- 7pm, pt's HR 120's per RN. Pt went into A-fib this am and has been started on Amiodarone gtt and has received increased dose of Coreg. Cardizem boluses IV earlier and Started on Cardizem po today Pt has not received pain meds for a while. Given Tramadol and Tylenol. His HR came down to the 80's and 90's soon afterwards. He also received PRBCs with lasix after 1st unit. this am per RN. Mag and K+ is low - replaced with KCL 40 mEq po x2. Mag sulfate 2gm IV. RN just called and informed me that the hospitalist has put in orders for KCL and Mag replacement. I cancelled my orders. But informed RN if the KCL IV is painful and Zak will not tolerate it, to just stop it and call and I will give him the KCL po. RN said Zak has not slept all night because he is nervous about the DCCV and what time it is going to take place. [place], PATIENT FINANCIAL REPRESENTATIVE, note states he will undergo direct current cardioversion on 01/09 at 0800 if he does not convert with amiodarone IV. 01/09/17 Converted to Sr by DCCV. 01/10/17 LifeVest here to provide Vest and education of use. Okay with discharge this afternoon. Thank you for allowing us to participate in the care of this patient, we will follow along with you. JHONY LAWRENCE MD 01/15/17 1203: Assessment & Plan Plan/Intensity of Service After examining the patient I agree with the above assessment. I am involved in the formulation of the patient's plan of care. CECI LEBRON APRN January 10, 2017 12:18 JHONY LAWRENCE MD January 15, 2017 12:03
[2017-01-10] MEDS ORDERED: SACU1TAB PO (14:44)
[2017-01-10] MEDS ORDERED: CARV12.5 PO (14:44)
--- NOTE | 2017-01-10 14:48 | DSPDOC ---
Discharge Diagnoses Discharge Diagnoses (1) CHF (congestive heart failure) (2) Non-ischemic cardiomyopathy (3) Respiratory distress Comments: Entero/Rhino virus positive. Markedly improved (4) Paroxysmal atrial fibrillation Comments: now with RVR. 01/09 cardioverted to normal sinus rhythm (5) COPD (chronic obstructive pulmonary disease) (6) Microcytic anemia Comments: Being worked up as outpatient - recent colonoscopy with polypectomy ( polyps benign) and iron infusion. 01/09 transfused 2 units packed red blood cells (7) Type 2 diabetes mellitus Comments: on Metformin (8) Stage 2 chronic kidney disease (9) Restless leg syndrome (10) Chronic low back pain (11) WON (generalized anxiety disorder) (12) JEANNA (obstructive sleep apnea) (13) CAD (coronary artery disease) (14) Hypertension (15) Parkinson's disease (16) Mixed hyperlipidemia (17) Overweight (BMI 25.0-29.9) (18) Hypernatremia (19) Leukocytosis Hospital Course 01/06/17 Admitted under hospitalist service to observation status for COPD exacerbation and elevated BNP. Solu-Medrol and DuoNeb were started in the emergency department. Will start Solu -Medrol 62.5 mg QID add Rocephin 1 g daily. Continue supportive care for coughing and COPD. Since he has SIRS criteria including leukocytosis, tachypnea and heart rate greater than 90, assess lactate and pro-calcitonin. Repeat chest x-ray in the morning. BNP was greater than 12,000, and he received an extra Bumex 2 mg IV in the ED. Continue with home Bumex dose 2 mg twice a day. Trend troponin. Initial was negative. Continue with home cardiac and parkinsonian medications. Microcytic anemia, more pronounced since last hospitalization. He has a scheduled EGD and colonoscopy for later this week. Hypernatremia, may worsen following diuresis. Recheck in the morning. Type 2 diabetes: Continue metformin and monitor sugars. Start sliding scale insulin, anticipate hyperglycemia secondary to steroids. Refuses diabetic diet ( states it causes opposite problems - hypoglycemia). Discussed with Dr. Marion, covering for Dr. Fermin. 01/07/17- Dr. Marion covering for Dr. Fermin. *COPD with exacerbation- Still quite wheezy and a bit SOA. O2 sats of 88% on RA requiring O2 noted on admission. Continue IV steroids and Ceftriaxone. Add Doxycycline to cover atypicals. Avoid Azithro given known AFib if at all possible. Assess Viral Resp PCR. Continue Duoneb, Acapella. Add Pulmicort. May need home nebs on discharge. will need ongoing hospital care- change to inpatient status. *HFpEF- Continue Coreg- adjust dosing given elevated HR and HTN. No need for NEGIN given pEF. Continue Tele. Pradaxa *Anemia- recent outpt. workup. Continue Pradaxa. Add PPI for GI protection. Add PO iron. Recent IV iron as outpt. Hold Celebrex due to increased risk of GI bleed. May want to change Pradaxa to Eliquis given side effect profile. *Possible lung mass- repeat CXR, PA & Lat. If persists- consider CT. *DM2- elevated BG due to IV steroids. Continue Metformin. Increase insulin dosing. Reg diet per pt request. *Parkinson's, chronic pain- continue home meds. Change Tramadol and Skelaxin to PRN per home dosing. Repeat labs in AM. Continue supportive care. 01/08/17: Antibiotics DCd, Extra dose of cardizem given for rapid HR. Transfusion of 2 units PRBCs given for heart patient with hgb < 10. 01/09/2017: Patient has improved markedly. He received his 2 units of packed red blood cells last evening. He was cardioverted to normal sinus rhythm earlier this morning. I have stopped his Solu-Medrol. I will check his lab in the morning to assure that his potassium is back up to within normal limits. If he is still improved time planning to discharge him tomorrow Home Meds Active Scripts Sacubitril/Valsartan (Entresto 24 mg-26 mg Tablet) 1 Each Tablet, 1 TAB PO BID for 30 Days, #60 TAB 5 Refills Prov:ANAND FERMIN DO 01/10/17 Carvedilol (Coreg) 12.5 Mg Tablet, 12.5 MG PO BIDWM for 30 Days, #60 TAB 5 Refills Prov:ANAND FERMIN DO 01/10/17 Potassium Chloride (Potassium Chloride) 20 Meq Tablet.er, 20 MEQ PO BIDWM for 30 Days, #60 TAB Take 1 tablet, by mouth, two times a day with meals. Prov:HARITHA ZELAYA MD 03/28/16 Reported Medications Bumetanide (Bumetanide) 1 Mg Tablet, 1 TAB PO BID, TAB 01/06/17 Tramadol HCl (Tramadol HCl) 50 Mg Tablet, 50 MG PO Q6HR Y for PAIN, TAB Take 1 tablet, by mouth, every 6 hours. 01/06/17 Methocarbamol (Methocarbamol) 750 Mg Tablet, 750 MG PO QID Y for PAIN, TAB Take 1 tablet, by mouth, 4 times a day. 01/06/17 Celecoxib (Celebrex) 200 Mg Capsule, 1 CAP PO DAILY, CAP 01/06/17 Carbidopa/Levodopa (Sinemet 25-100 mg Tablet) 1 Each Tablet, 1 TAB PO TID, #90 TAB 5 Refills 01/06/17 Dabigatran Etexilate Mesylate (Pradaxa) 150 Mg Capsule, 1 CAP PO BID, CAP TAKE WITH FULL GLASS OF WATER. Do not break, chew, open cap. 01/06/17 Silver Sulfadiazine (Silvadene) 20 Gm Cream..g. 01/06/17 Acetaminophen (Acetaminophen) 650 Mg Tablet.er, 650 MG PO BID Y for PAIN 11/23/15 B Complex with Vitamin C (Super B Complex-Vitamin C) 1 Each Tablet, 1 TAB PO DAILY 11/02/15 Ropinirole HCl (Ropinirole HCl) 2 Mg Tablet, 2 MG PO TID 11/02/15 Gabapentin (Gabapentin) 300 Mg Capsule, 300 MG PO BID 11/02/15 Albuterol Sulfate (Proair Hfa) 8.5 Gm Aerosol, 2 PUFF IH Q6H Y for SHORTNESS OF AIR 01/09/14 Metformin Hcl (Metformin Hcl) 500 Mg Tablet, 500 MG PO BIDWM 12/26/11 Discontinued Reported Medications Carvedilol (Carvedilol) 6.25 Mg Tablet, 1 TAB PO BIDWM, TAB BEST WITH FOOD. 01/06/17 B2/Vit A,C & E/Lut/Zeaxanth/Mn (Icaps Tablet) 1 Each Tablet.er 01/06/17 Amiodarone HCl (Amiodarone HCl) 200 Mg Tablet, 200 MG PO DAILY, TAB 01/06/17 Lisinopril (Lisinopril) 2.5 Mg Tablet, 2.5 MG PO DAILY 7/22/16 Dabigatran Etexilate Mesylate (Pradaxa) 150 Mg Capsule, 150 MG PO BID 12/26/13 Discontinued Scripts Bumetanide (Bumetanide) 1 Mg Tablet, 2 MG PO BID for 30 Days Prov:HARITHA ZELAYA MD 03/28/16 Discharge Disposition Discharged to home Copies To 1: ANAND FERMIN DO Copies To 2: JHONY LAWRENCE MD Follow up Condition at time of discharge: Good Follow up as directed ANAND FERMIN DO January 10, 2017 14:48
[2017-01-10] MEDS ORDERED: AMIO200T7 PO (15:17)
--- NOTE | 2017-01-10 15:37 | NUR ---
SCRIPTS SCRIPTS X3 CALLED TO [facility].
--- NOTE | 2017-01-10 15:45 | NUR ---
Discharge Patient discharged to home with . Okay to dismiss per . IV dc'd, cath intact. and patient understand the discharge instructions, questions answered.
[2017-01-11] MEDS ORDERED: POTASSIUM CHLORIDE 20 MEQ TABLET PO SCH (08:00)
--- NOTE | 2017-01-15 15:00 | NUR ---
FOLLOW UP CALL ATTEMPT #1 LEFT MESSAGE ON THIS DATE.
--- NOTE | 2017-01-16 10:52 | NUR ---
FOLLOW UP CALL ATTEMPT #2 LEFT MESSAGE ON THIS DATE.
== END 2017-01-10 15:50 | disposition home or self-care (01) | DRG 190 ==
LOC: ED 12:53 → EDHOLD 15:22 → MED 15:45 → OBSVTOIN 01-07 11:38
PROVIDERS: ADMIT Family Medicine; ATTEND Family Medicine
PROC: 30233N1 Transfusion of Nonautologous Red Blood Cells into Peripheral Vein, Percutaneous Approach (ICD-10-PCS; principal; 2017-01-08)
DX: J44.1 Chronic obstructive pulmonary disease with (acute) exacerbation (principal); I50.33 Acute on chronic diastolic (congestive) heart failure; E87.0 Hyperosmolality and hypernatremia; I13.0 Hypertensive heart and chronic kidney disease with heart failure and stage 1 through stage 4 chronic kidney disease, or unspecified chronic kidney disease; I42.8 Other cardiomyopathies; E11.22 Type 2 diabetes mellitus with diabetic chronic kidney disease; N18.2 Chronic kidney disease, stage 2 (mild); I25.10 Atherosclerotic heart disease of native coronary artery without angina pectoris; I48.0 Paroxysmal atrial fibrillation; D50.9 Iron deficiency anemia, unspecified; G20 Parkinson's disease; F41.1 Generalized anxiety disorder; E78.5 Hyperlipidemia, unspecified; E66.3 Overweight; G89.29 Other chronic pain; M54.9 Dorsalgia, unspecified; G47.33 Obstructive sleep apnea (adult) (pediatric); G25.81 Restless legs syndrome; Z68.28 Body mass index [BMI] 28.0-28.9, adult
CPT/HCPCS: 36000; 36415; 36416; 80048; 80053; 80069; 82948; 83605; 83735; 83880; 84145; 84443; 84484; 85018; 85025; 86850; 86900; 86901; 86922; 87486; 87581; 87633; 87798; 93005; 93306; 94640; 94667; 94668; 94761; 96365; 96372; 96375; 99218

== ENCOUNTER 2017-03-08 14:23 | Inpatient (IN) ==
--- NOTE | 2017-03-08 15:15 | Emergency Department Report ---
SOB HPI - General Chief Complaint: Shortness of Breath/Dyspnea Stated Complaint: fluid on lungs, copd,falling,low blood Time Seen by Provider: 03/08/17 14:49 Source: patient Mode of arrival: ambulatory Limitations: no limitations - History of Present Illness Mr. Aviles is a 76-year-old gentleman comes emergency room with chief complaint of shortness of air, no weakness, falls over the last couple of days. Patient fell yesterday and did strike head on the right side. Does complain of headaches ongoing for the last month. Was on Pradaxa but has not taken that since January 2017 per the order of Dr. Hinojosa. Patient reports feeling dizziness prior to the falls. Patient does have a recent history of cardioversion for afib with last hospitalization in January 2017 at [facility]. He does wear a defibrillation test and will do so for one more month. Patient has a heart catheterization scheduled for March [address] Hinojosa. comes in with patient today and reports that home health nurse came to visit and felt that patient was in distress, commenting that his oxygen level was low in his blood. Patient nor are aware of what his oxygen saturation was at home. He does not wear home O2. He does use nebulized Duoneb at home, last dose around 10 am this morning. Additionally uses Albuterol inhalers prn. reports hx CHF and COPD. Home health nurse advised patient to be brought to the emergency room. Complaint: shortness of breath Onset (ago): day(s) (2) Context: trauma/injury Consistency/Duration: intermittent Relieving factors: nothing Exacerbating factors: exertion Known history of: COPD, congestive heart failure Treatment prior to arrival: bronchodilator - Related Data Home oxygen amount: none Home Medications Medication Instructions Recorded Confirmed Metformin HCl 500 mg PO BIDWM #0 12/26/11 03/08/17 Albuterol Sulfate [Proair Hfa] 2 puff IH Q6H PRN #0 01/09/14 03/08/17 B-Complex with Vitamin C [Super B 1 tab PO DAILY #0 11/02/15 03/08/17 Complex-Vitamin C] Gabapentin 300 mg PO BID #0 11/02/15 03/08/17 Ropinirole HCl 2 mg PO TID #0 11/02/15 03/08/17 Acetaminophen [Acetaminophen 8 1,300 mg PO BID PRN #0 11/23/15 03/08/17 Hour] Bumetanide 2 mg PO BID #0 tab 01/06/17 03/08/17 Carbidopa/Levodopa [Sinemet 25-100 1 tab PO TID #0 tab 01/06/17 03/08/17 mg Tablet] Celecoxib [Celebrex] 200 mg PO DAILY #0 cap 01/06/17 03/08/17 Methocarbamol 750 mg PO QID PRN #0 tab 01/06/17 03/08/17 Silver Sulfadiazine [Silvadene] 1 applic TOP PRN #0 01/06/17 03/08/17 Tramadol HCl 50 mg PO Q6HR PRN #0 tab 01/06/17 03/08/17 Amiodarone [Pacerone] 200 mg PO DAILY #0 01/17/17 03/08/17 Carvedilol [Coreg] 12.5 mg PO BIDWM #0 01/17/17 03/08/17 Potassium Chloride 20 meq PO BIDWM #0 01/17/17 03/08/17 Sacubitril/Valsartan [Entresto 24 1 tab PO BID #0 01/17/17 03/08/17 mg-26 mg Tablet] Allergies Allergy/AdvReac Type Severity Reaction Status Date / Time prednisone Allergy Unknown ANXIOUS Verified 03/08/17 14:38 dicyclomine AdvReac Severe "MAKES ME Verified 03/08/17 14:38 VERY NERVOUS AND JITTERY" aspirin AdvReac Unknown CAUSES GI Verified 03/08/17 14:38 BLEEDING ciprofloxacin AdvReac Unknown HYPERACTIVE Verified 03/08/17 14:38 Review of Systems All systems: reviewed and negative except as stated Constitutional: Reports: weakness Cardiovascular: Denies: chest pain Respiratory: Reports: dyspnea. Denies: cough Gastrointestinal: Denies: abdominal pain, vomiting Neurological: Reports: headache Hematological/Lymphatic: Reports: easy bruising PFSH Patient Stated Medical History Parkinson's Disease Yes Dental Problems Yes: HAS DENTURES Hearing Loss Yes Other HEENT Yes: WEARS GLASSES Cardiac Arrhythmia Yes: AFIB,PVC,V-TACH Congestive Heart Failure Yes Hypertension Yes Rheumatic Fever Yes Valvular Heart Disease Yes Asthma Yes: CHILDHOOD Chronic Obstructive Pulmonary Yes Disease (COPD) Pneumonia Yes Sleep Apnea Yes: WEARS CPAP Diabetes Mellitus Type 2 Yes Hiatal Hernia Yes Hx Benign Prostatic Yes: PROSTATE CA Hyperplasia Hx Incontinence Yes Osteoarthritis Yes Other Musculoskeletal Yes: RLS Other Infectious Yes: UNKNOWN LUNG INFECTION Depression Yes Surgical History: exploratory laproscopy. vasectomy. TURP. hernia repair - Social History Smoking status: Former smoker Substance use type: does not use Alcohol intake frequency: does not drink Housing: house (1 level) Household members: spouse Current occupational status: retired Current residence: Apartment/Private Home Physical Exam - Limitations Limitations: no limitations - General General appearance: alert, in no apparent distress - Head Head exam: other (bandaid to abrasion right forehead) - Eye Eye exam: Present: normal appearance, PERRL, EOMI. Absent: scleral icterus, conjunctival injection - ENT ENT exam: Present: normal exam, normal oropharynx, mucous membranes moist - Neck Neck exam: Present: normal inspection, full ROM, trachea midline - Chest Chest inspection: Present: normal inspection - Expanded Respiratory Exam Location: Left: decreased breath sounds, Right: decreased breath sounds - Cardiovascular Cardiovascular exam: Present: regular rate, normal rhythm - Abdominal Exam Abdominal exam: Present: soft. Absent: distention, tenderness - Skin Skin exam: Present: warm, dry, intact - Neurological Exam Neurological exam: Present: alert, oriented X3, CN II-XII intact - Psychiatric Psychiatric exam: Present: normal affect, normal mood Course Course Narrative: 1543 - EKG shows heart rate 47-afib. Telemetry showing mostly 60s. Patient checked, indicates he does have a hx of afib and heart rate goes up and comes down. - Consultations Consultation #1: Rhonda Hinojosa Time: 16:30 (Ashish to see in ER) Time: 17:30 (Kelin Mayfield) Time: 17:45 ([facility] agrees to 23 hr obs) Vital Signs Temperature 96.3 F L 03/08/17 14:25 Pulse Rate 67 03/08/17 14:25 Respiratory Rate 18 03/08/17 14:25 Blood Pressure 110/60 03/08/17 14:25 Pulse Oximetry 94 03/08/17 14:25 Temperature 96.3 F L 03/08/17 14:25 Pulse Rate 62 03/08/17 15:57 Respiratory Rate 18 03/08/17 14:25 Blood Pressure 110/59 03/08/17 15:57 Pulse Oximetry 94 03/08/17 14:25 Shortness of Breath/Dyspnea - [facility] Narrative Medical decision making narrative: Ashish in dept to see patient in room 4 in ED. Recommends admission and call to [facility] for primary. [facility] called and agrees to accept patient as 23 hr obs on tele with Ashish consult. - Differential Diagnosis Likely: congestive heart failure - Medical Records Attestation: I reviewed the patient's medical records. - Lab Data Attestation: I reviewed the patient's lab results. Result diagrams: 03/08/17 15:24 03/08/17 15:24 Lab Results 03/08/17 03/08/17 03/08/17 Range/Units 15:24 15:24 16:56 WBC 5.3 (4.5-11.0) T/MM3 RBC 3.38 L (4.50-5.90) M/MM3 Hgb 8.8 L (13.5-17.5) GM/DL Hct 30.4 L (41-53) % MCV 89.9 (80-100) UM3 MCH 26.0 (26-34) UUG MCHC 28.9 L (31-37) GM/DL RDW Std Deviation 72.8 H (36.9-50.2) FL Plt Count 162 (130-400) T/MM3 MPV 11.7 (9.4-12.4) UM3 Immature Gran % (Auto) 0.4 (0.0-0.5) % Neut % (Auto) 61.4 (33-66) % Lymph % (Auto) 25.2 (23-45) % [place] % (Auto) 9.2 H (0-9.0) % Eos % (Auto) 3.4 (0-4) % Baso % (Auto) 0.4 (0-2) % Neut # 3.3 (1.8-7.7) T/MM3 Lymph # 1.3 (1-4.8) T/MM3 [place] # 0.5 (0-0.8) T/MM3 Eos # 0.2 (0-0.5) T/MM3 Baso # 0.0 (0-0.2) T/MM3 Abs Immat Gran (auto) 0.02 (0.00-0.03) T/MM3 Turbidity < 20 (0-20) Sodium 143 (134-144) MEQ/L Potassium 5.3 H (3.6-5) MEQ/L Chloride 106 (98-107) MEQ/L Carbon Dioxide 27 (22-30) MEQ/L Anion Gap 10 (5-15) MEQ/L BUN 33.0 H (9-20) MG/DL Creatinine 1.3 (0.8-1.5) MG/DL GFR Calculation 54 BUN/Creatinine Ratio 25 (6-26) RATIO Glucose 198 H (75-110) MG/DL Calculated Osmolality 288 H (261-280) MOSM/KG Calcium 8.3 L (8.4-10.2) MG/DL Total Bilirubin 0.50 (0.20-1.30) MG/DL Icterus Index < 2 (0-7) AST 21 (17-59) U/L ALT 29 (21-72) U/L Alkaline Phosphatase 117 (38-126) U/L Troponin I < 0.012 (0-0.12) ng/ml B-Natriuretic Peptide 56178 H (0-175) pg/mL Total Protein 6.4 (6.3-8.2) G/DL Albumin 3.6 (3.5-5.0) G/DL Globulin 2.8 (2.4-3.6) G/DL Albumin/Globulin Ratio 1.3 (1.1-2.2) RATIO Specimen Hemolysis < 15 (0-25) Ur Collection Type Not provided Urine Color Yellow (YELLOW) Urine Clarity Clear Urine pH 5.0 (5.0-8.0) Ur Specific [place] 1.020 (1.015-1.025) Urine Protein Negative (NEGATIVE) Urine Glucose (UA) 1+ A (NEGATIVE) Urine Ketones Negative (NEGATIVE) Urine Occult Blood Negative (NEGATIVE) Urine Nitrate Negative (NEGATIVE) Urine Bilirubin Negative (NEGATIVE) Urine Urobilinogen 0.2 (NORMAL) EU/DL Ur Leukocyte Esterase Negative (NEGATIVE) Urinalysis Comment Microscopic not ind. - Radiology Data Attestation: I reviewed the patient's radiology results. CXR unchanged from prior film - EKG Data EKG #1 EKG attestation: Yes: I reviewed and interpreted this EKG. Rate: bradycardia Rhythm: A.Fib Disposition Clinical Impression: Bradycardia Disposition: To [place] [facility] [place] Condition: Stable Prescriptions: No Action Metformin HCl 500 mg PO BIDWM #0 Carbidopa/Levodopa [Sinemet 25-100 mg Tablet] 1 tab PO TID #0 tab Celecoxib [Celebrex] 200 mg PO DAILY #0 cap Methocarbamol 750 mg PO QID PRN #0 tab PRN Reason: PAIN Amiodarone [Pacerone] 200 mg PO DAILY #0 Carvedilol [Coreg] 12.5 mg PO BIDWM #0 Potassium Chloride 20 meq PO BIDWM #0 Sacubitril/Valsartan [Entresto 24 mg-26 mg Tablet] 1 tab PO BID #0 Albuterol Sulfate [Proair Hfa] 2 puff IH Q6H PRN #0 PRN Reason: SHORTNESS OF AIR Gabapentin 300 mg PO BID #0 Ropinirole HCl 2 mg PO TID #0 B-Complex with Vitamin C [Super B Complex-Vitamin C] 1 tab PO DAILY #0 Acetaminophen [Acetaminophen 8 Hour] 1,300 mg PO BID PRN #0 PRN Reason: PAIN Silver Sulfadiazine [Silvadene] 1 applic TOP PRN #0 Tramadol HCl 50 mg PO Q6HR PRN #0 tab PRN Reason: PAIN Bumetanide 2 mg PO BID #0 tab Referrals: Armen Mayfield DO [Family Provider] - - Seen By: midlevel
--- NOTE | 2017-03-08 16:16 | CT Scan Report ---
Indication: fall, head injury PROCEDURE: CT head/brain wo con: Encounter: Initial Comparison: Head CT dated February 03, 2017 Technique: Axial CT images through the head were performed without contrast. Iterative Reconstruction dose reducing technique was utilized. FINDINGS: Mild atrophy. The ventricles are stable. There is no evidence of acute intracranial hemorrhage, midline displacement, or mass effect. There are scattered areas of low attenuation in the white matter which most likely represent changes of chronic microvascular ischemia. The CT attenuation of the brain parenchyma is otherwise normal within the cerebellum, brain stem, and cerebral hemispheres. The tympanic cavities and mastoid air cells are free of appreciable disease. There are no definite fractures of the skull base, calvarium, or visualized portion of the midface. IMPRESSION: No CT evidence of acute traumatic intracranial injury. .
--- NOTE | 2017-03-08 16:30 | XRay Report ---
INDICATION: dyspnea PROCEDURE: CHEST 2-VIEWS UPRIGHT (PA & LAT) Encounter: Initial COMPARISON: Chest x-ray dated February 03, [address] dated January 20, 2017 FINDINGS: Lungs are stable in appearance with scattered interstitial prominence and fine areas of groundglass type opacity. No obvious new or worsening airspace disease. No significant areas of improvement compared to the prior study. No pneumothorax probable trace left effusion. Heart size and mediastinal contours are stable. Pulmonary vascularity is unchanged. Impression: Continued airspace abnormalities similar to the prior chest x-ray and probably similar to the prior chest CT which showed atypical infectious or inflammatory infiltrates throughout the lungs. Atypical mycobacterium, fungal and viral pneumonia are within the differential. .
[2017-03-08 19:10] VITALS: BMI 31.1
[2017-03-08] MEDS ORDERED: METHOCARBAMOL 500 MG TABLET PO PRN (21:21)
[2017-03-08] MEDS ORDERED: SILVER SULFADIAZINE 1% CREAM 50 GM TOP PRN (21:49)
[2017-03-08] MEDS: METFORMIN 500 MG TABLET PO SCH (22:21)
[2017-03-08] MEDS: GABAPENTIN 300 MG CAPSULE PO SCH (22:21)
[2017-03-09] MEDS ORDERED: ALBUTEROL 2.5mg/3ml (0.083%) NEB IH PRN (06:30)
[2017-03-09] MEDS: CELECOXIB 200 MG CAPSULE PO SCH (08:30)
[2017-03-09] MEDS: SACUBITRIL/VALSARTAN 24/26mg TABLET PO SCH ×2 (08:30→20:32)
[2017-03-09] MEDS: GABAPENTIN 300 MG CAPSULE PO SCH ×2 (08:30→20:32)
[2017-03-09] MEDS: VITAMIN B COMPLEX + C TABLET PO SCH (08:30)
[2017-03-09] MEDS: METFORMIN 500 MG TABLET PO SCH ×2 (08:30→17:46)
[2017-03-09] MEDS: ROPINIROLE 2 MG TABLET PO SCH ×3 (08:30→20:32)
[2017-03-09] MEDS: CARVEDILOL 3.125 MG TABLET PO SCH ×2 (08:31→17:46)
[2017-03-09] MEDS ORDERED: BUMETANIDE 1 MG TABLET PO SCH (09:00)
[2017-03-09] MEDS ORDERED: AMIODARONE 200 MG TABLET PO SCH (09:00)
--- NOTE | 2017-03-09 11:30 | Cardiology Consult Note ---
History of Present Illness Consult date: 03/08/17 <RosangelaRhonda Merrill - 03/09/17 11:32> Requesting physician: Armen Mayfield <RosangelaRhonda maria 03/09/17 11:32> Chief complaint: Bradycardia <Rhonda Adames Merrill 03/09/17 11:32> History of present illness: Mr. Aviles is a 76-year-old gentleman who is well known to Dr. Hinojosa who has a history of cardiomyopathy with EF of 30% or less , CAD, Atrial fibrillation and frequent PVCs, valvular disease, HTN, HLD< and DM. He presented to the ED with chief complaint of shortness of air, weakness, falls over the last couple of days. He fell yesterday and did strike head on the right side. Does complain of headaches ongoing for the last month. Was on Pradaxa but has not taken that since January 2017 per the order of Dr. Hinojosa. He reports feeling dizziness prior to the falls. He does have a recent history of cardioversion for afib with last hospitalization in January 2017 at [facility]. He does wear a LifeVest and will do so for one more month. He has a heart catheterization scheduled for March [address] Hinojosa. comes in with patient today and reports that home health nurse came to visit and felt that patient was in distress, commenting that his oxygen level was low in his blood. Patient nor are aware of what his oxygen saturation was at home. He does not wear home O2. He does use nebulized Duoneb at home, last dose around 10 am this morning. Additionally uses Albuterol inhalers prn. reports hx CHF and COPD. Home health nurse advised patient to be brought to the emergency room. Upon exam he reports feeling extreme weakness as if his legs her to heavy to lift, some dizziness and falls but denies syncope. He denies chest pain or pressure, denies feeling his heart racing or skipping beats. He has dyspnea on exertion and bilateral LE edema. He denies recent illness, fever chills, sore throat, cough, N/V/D. <Rhonda Adames - 03/09/17 15:06> Review of Systems - Constitutional Constitutional: Present: weakness. Absent: chills, fever(s) <Rhonda Adames 03/09/17 11:32> - EENMT Eyes: Absent: change in vision <Rhonda Adames 03/09/17 11:32> Balance: Absent: vertigo <Rhonda Adames 03/09/17 11:32> Mouth/Throat: Absent: sore throat <Rhonda Adames 03/09/17 11:32> - Cardiovascular Cardiovascular: Present: dyspnea on exertion. Absent: chest pain, palpitations , syncope <Rhonda Adames 03/09/17 11:32> Vascular: Present: pedal edema <Rhonda Adames 03/09/17 11:32> - Respiratory Respiratory: Present: dyspnea. Absent: cough <Rhonda Adames 03/09/17 11:32 > - Gastrointestinal Gastrointestinal: Absent: diarrhea, nausea, vomiting <Rhonda Adames 11:32> - Neurological Neurological: Present: dizziness <Rhonda Adames 03/09/17 11:32> [facility] Patient Stated Medical History Parkinson's Disease Yes Dental Problems Yes: HAS DENTURES Hearing Loss Yes Other HEENT Yes: WEARS GLASSES Cardiac Arrhythmia Yes: AFIB,PVC,V-TACH Congestive Heart Failure Yes Hypertension Yes Rheumatic Fever Yes Valvular Heart Disease Yes Asthma Yes: CHILDHOOD Chronic Obstructive Pulmonary Yes Disease (COPD) Pneumonia Yes Sleep Apnea Yes: WEARS CPAP Diabetes Mellitus Type 2 Yes Hiatal Hernia Yes Hx Benign Prostatic Yes: PROSTATE CA Hyperplasia Hx Incontinence Yes Osteoarthritis Yes Other Musculoskeletal Yes: RLS Other Infectious Yes: UNKNOWN LUNG INFECTION Depression Yes <Rhonda Adames 03/09/17 15:06> Surgical History: exploratory laproscopy. vasectomy. TURP. hernia repair < Rhonda Adames 03/09/17 11:32> - Social History Smoking status: Former smoker <Rhonda Adames 03/09/17 11:32> Substance use type: former substance user <RosangelaRhonda Merrill 03/09/17 15:06> Alcohol intake frequency: former alcohol drinker <RosangelaRhonda Merrill 03/09/17 15 :06> Household members: spouse <RosangelaRhonda Merrill 03/09/17 15:06> Current occupational status: retired <Rhonda Adames Merrill 03/09/17 15:06> Current residence: Apartment/Private Home <Rhonda Adames - 03/09/17 15:06> Medications Home Medications Medication Instructions Recorded Confirmed Type Metformin HCl 500 mg PO BIDWM #0 12/26/11 03/08/17 History Albuterol Sulfate [Proair Hfa] 2 puff IH Q6H PRN #0 01/09/14 03/08/17 History B-Complex with Vitamin C [Super B 1 tab PO DAILY #0 11/02/15 03/08/17 History Complex-Vitamin C] Gabapentin 300 mg PO BID #0 11/02/15 03/08/17 History Ropinirole HCl 2 mg PO TID #0 11/02/15 03/08/17 History Acetaminophen [Acetaminophen 8 1,300 mg PO BID PRN #0 11/23/15 03/08/17 History Hour] Bumetanide 2 mg PO BID #0 tab 01/06/17 03/08/17 History Carbidopa/Levodopa [Sinemet 25-100 1 tab PO TID #0 tab 01/06/17 03/08/17 History mg Tablet] Celecoxib [Celebrex] 200 mg PO DAILY #0 cap 01/06/17 03/08/17 History Methocarbamol 750 mg PO QID PRN #0 tab 01/06/17 03/08/17 History Silver Sulfadiazine [Silvadene] 1 applic TOP PRN #0 01/06/17 03/08/17 History Tramadol HCl 50 mg PO Q6HR PRN #0 tab 01/06/17 03/08/17 History Amiodarone [Pacerone] 200 mg PO DAILY #0 01/17/17 03/08/17 History Carvedilol [Coreg] 12.5 mg PO BIDWM #0 01/17/17 03/08/17 History Potassium Chloride 20 meq PO BIDWM #0 01/17/17 03/08/17 History Sacubitril/Valsartan [Entresto 24 1 tab PO BID #0 01/17/17 03/08/17 History mg-26 mg Tablet] <Jonathan Hinojosa - 03/11/17 11:29> Allergies Allergy/AdvReac Type Severity Reaction Status Date / Time prednisone Allergy Unknown ANXIOUS Verified 03/08/17 14:38 dicyclomine AdvReac Severe "MAKES ME Verified 03/08/17 14:38 VERY NERVOUS AND JITTERY" aspirin AdvReac Unknown CAUSES GI Verified 03/08/17 14:38 BLEEDING ciprofloxacin AdvReac Unknown HYPERACTIVE Verified 03/08/17 14:38 <Jonathan Hinojosa - 03/11/17 11:29> Exam Vital signs: Temperature 96 F L 03/11/17 08:00 Pulse Rate 90 03/11/17 08:00 Respiratory Rate 16 03/11/17 08:00 Blood Pressure 138/66 03/11/17 08:00 Pulse Oximetry 97 03/11/17 08:00 Oxygen Delivery Method Room Air <Jonathan Hinojosa - 03/11/17 11:29> Temperature 95.7 F L 03/09/17 07:35 Pulse Rate 78 03/09/17 07:50 Respiratory Rate 20 03/09/17 07:35 Blood Pressure 130/79 03/09/17 07:35 Pulse Oximetry 93 03/09/17 07:35 Oxygen Delivery Method Room Air <Rhonda Adames [facility] 03/09/17 11:32> - Constitutional no acute distress, disheveled, cooperative <RosangelaRhonda singh 03/09/17 15:06> - Routine HEENT Exam Nose: moist mucous membranes <RosangelaRhonda singh [facility] 03/09/17 15:06> - Routine Neck Exam Present: JVD. Absent: carotid bruit <Rhonda Adames 03/09/17 15:06> - Routine Chest/Breast/Axilla Exam Chest wall: Absent: tenderness <RosangelaRhonda singh [facility] 03/09/17 15:06> - Routine Respiratory Exam Present: rales. Absent: CTA bilaterally, wheezes <Rhonda Adames 03/09/17 15:06> - Routine Cardiovascular Exam Present: irregular rhythm, JVD <Rhonda Adames [facility] 03/09/17 15:06> - Routine Abdominal Exam Present: soft, normoactive bowel sounds <Rhonda Adames 03/09/17 15:06> - Routine Extremities Exam Present: edema <RosangelaRhonda singh 03/09/17 15:06> - Routine Skin Exam Present: intact <Rhonda Adames [facility] 03/09/17 15:06> - Routine Neurological Exam Present: alert, oriented X3 <Rhonda Adames - 03/09/17 15:06> - Routine Psychiatric Exam Present: normal affect, normal thought process <Rhonda Adames M - 03/09/17 15: 06> Results 03/11/17 04:31 03/11/17 04:31 <Jonathan Hinojosa - 03/11/17 11:29> CBC 03/11/17 Range/Units 04:31 WBC 7.3 (4.5-11.0) T/MM3 RBC 4.30 L (4.50-5.90) M/MM3 Hgb 11.1 L D (13.5-17.5) GM/DL Hct 38.1 L D (41-53) % Plt Count 210 (130-400) T/MM3 Comprehensive Metabolic Panel 03/11/17 Range/Units 04:31 Sodium 140 (134-144) MEQ/L Potassium 4.3 (3.6-5) MEQ/L Chloride 97 L D (98-107) MEQ/L Carbon Dioxide 33 H (22-30) MEQ/L BUN 20.0 (9-20) MG/DL Creatinine 1.0 (0.8-1.5) MG/DL Glucose 92 (75-110) MG/DL Calcium 8.6 (8.4-10.2) MG/DL Intake and Output 03/10/17 03/11/17 03/11/17 22:59 06:59 14:59 Intake Total 150 / 150 300 / 300 Output Total 200 / 200 1974 200 / 200 Balance -50 / -50 -1675 / -1675 -200 / -200 Intake: Oral 150 / 150 300 / 300 Output: Urine 200 / 200 1974 200 / 200 Other: Weight 77.2 kg Patient Weight 03/12/17 06:59 Weight 77.2 kg <Jonathan Hinojosa - 03/11/17 11:29> Cardiac Enzymes 03/09/17 Range/Units 04:39 AST 21 (17-59) U/L CBC 03/09/17 Range/Units 04:39 WBC 6.1 (4.5-11.0) T/MM3 RBC 3.64 L (4.50-5.90) M/MM3 Hgb 9.4 L (13.5-17.5) GM/DL Hct 32.7 L (41-53) % Plt Count 184 (130-400) T/MM3 Neut # Not performed Lymph # Not performed Wirt # Not performed Eos # Not performed Baso # Not performed Comprehensive Metabolic Panel 03/09/17 Range/Units 04:39 Sodium 141 (134-144) MEQ/L Potassium 5.3 H (3.6-5) MEQ/L Chloride 106 (98-107) MEQ/L Carbon Dioxide 28 (22-30) MEQ/L BUN 32.0 H (9-20) MG/DL Creatinine 1.2 (0.8-1.5) MG/DL Glucose 105 (75-110) MG/DL Calcium 8.6 (8.4-10.2) MG/DL AST 21 (17-59) U/L ALT 12 L (21-72) U/L Alkaline Phosphatase 128 H (38-126) U/L Total Protein 6.5 (6.3-8.2) G/DL Albumin 3.7 (3.5-5.0) G/DL Intake and Output 03/08/17 03/09/17 03/09/17 22:59 06:59 14:59 Intake Total 100 / 100 400 / 400 240 / 240 Output Total 250 / 250 150 / 150 500 / 500 Balance -150 / -150 250 / 250 -260 / -260 Intake: Oral 100 / 100 400 / 400 240 / 240 Output: Urine 250 / 250 150 / 150 500 / 500 Other: Weight 175 lb 14.862 oz 178 lb 9.191 oz Patient Weight 03/10/17 06:59 Weight 178 lb 9.191 oz Laboratory Results - last 48 hr 03/08/17 03/08/17 03/08/17 10:30 15:24 15:24 WBC 5.3 RBC 3.38 L Hgb 8.8 L Hct 30.4 L MCV 89.9 MCH 26.0 MCHC 28.9 L RDW Std Deviation 72.8 H Plt Count 162 MPV 11.7 Immature Gran % (Auto) 0.4 Neut % (Auto) 61.4 Lymph % (Auto) 25.2 Wirt % (Auto) 9.2 H Eos % (Auto) 3.4 Baso % (Auto) 0.4 Neut # 3.3 Lymph # 1.3 Wirt # 0.5 Eos # 0.2 Baso # 0.0 Abs Immat Gran (auto) 0.02 Neutrophils % (Manual) Band Neutrophils % Lymphocytes % (Manual) Monocytes % (Manual) Eosinophils % (Manual) Neutrophils # (Manual) Band Neutrophils # Lymphocytes # (Manual) Monocytes # (Manual) Eosinophils # (Manual) RBC Morph Comment Smear Path Review Absolute Retic Percent Retic Immature Retic Fraction Retic Hgb Content CHr Turbidity < 20 Sodium 143 Potassium 5.3 H Chloride 106 Carbon Dioxide 27 Anion Gap 10 BUN 33.0 H Creatinine 1.3 GFR Calculation 54 BUN/Creatinine Ratio 25 Glucose 198 H Glucometer Calculated Osmolality 288 H Calcium 8.3 L Iron TIBC % Saturation Total Bilirubin 0.50 Icterus Index < 2 AST 21 ALT 29 Alkaline Phosphatase 117 Troponin I < 0.012 B-Natriuretic Peptide 34082 H Total Protein 6.4 Albumin 3.6 Globulin 2.8 Albumin/Globulin Ratio 1.3 Specimen Hemolysis < 15 Ur Collection Type Urine Color Urine Clarity Urine pH Ur Specific Heber Urine Protein Urine Glucose (UA) Urine Ketones Urine Occult Blood Urine Nitrate Urine Bilirubin Urine Urobilinogen Ur Leukocyte Esterase Urinalysis Comment Stool Occult Blood Negative 03/08/17 03/08/17 03/09/17 16:56 22:51 04:39 WBC 6.1 RBC 3.64 L Hgb 9.4 L Hct 32.7 L MCV 89.8 MCH 25.8 L MCHC 28.7 L RDW Std Deviation 73.0 H Plt Count 184 MPV 12.3 Immature Gran % (Auto) Not performed Neut % (Auto) Not performed Lymph % (Auto) Not performed Wirt % (Auto) Not performed Eos % (Auto) Not performed Baso % (Auto) Not performed Neut # Not performed Lymph # Not performed Wirt # Not performed Eos # Not performed Baso # Not performed Abs Immat Gran (auto) Not performed Neutrophils % (Manual) 50.0 Band Neutrophils % 2.0 Lymphocytes % (Manual) 38.0 Monocytes % (Manual) 4.0 Eosinophils % (Manual) 6.0 H Neutrophils # (Manual) 3.1 Band Neutrophils # 0.1 Lymphocytes # (Manual) 2.3 Monocytes # (Manual) 0.2 Eosinophils # (Manual) 0.4 RBC Morph Comment Abnormal Smear Path Review Absolute Retic 0.0422 Percent Retic 1.2 Immature Retic Fraction 20.5 H Retic Hgb Content CHr 25.6 L Turbidity Sodium Potassium Chloride Carbon Dioxide Anion Gap BUN Creatinine GFR Calculation BUN/Creatinine Ratio Glucose Glucometer 209 Calculated Osmolality Calcium Iron TIBC % Saturation Total Bilirubin Icterus Index AST ALT Alkaline Phosphatase Troponin I B-Natriuretic Peptide Total Protein Albumin Globulin Albumin/Globulin Ratio Specimen Hemolysis Ur Collection Type Not provided Urine Color Yellow Urine Clarity Clear Urine pH 5.0 Ur Specific Heber 1.020 Urine Protein Negative Urine Glucose (UA) 1+ A Urine Ketones Negative Urine Occult Blood Negative Urine Nitrate Negative Urine Bilirubin Negative Urine Urobilinogen 0.2 Ur Leukocyte Esterase Negative Urinalysis Comment Microscopic not ind. Stool Occult Blood 03/09/17 03/09/17 03/09/17 04:39 04:39 04:39 WBC RBC Hgb Hct MCV MCH MCHC RDW Std Deviation Plt Count MPV Immature Gran % (Auto) Neut % (Auto) Lymph % (Auto) Wirt % (Auto) Eos % (Auto) Baso % (Auto) Neut # Lymph # Wirt # Eos # Baso # Abs Immat Gran (auto) Neutrophils % (Manual) Band Neutrophils % Lymphocytes % (Manual) Monocytes % (Manual) Eosinophils % (Manual) Neutrophils # (Manual) Band Neutrophils # Lymphocytes # (Manual) Monocytes # (Manual) Eosinophils # (Manual) RBC Morph Comment Smear Path Review Sent for review Absolute Retic Percent Retic Immature Retic Fraction Retic Hgb Content CHr Turbidity < 20 Sodium 141 Potassium 5.3 H Chloride 106 Carbon Dioxide 28 Anion Gap 7 BUN 32.0 H Creatinine 1.2 GFR Calculation 59 BUN/Creatinine Ratio 27 H Glucose 105 Glucometer Calculated Osmolality 278 Calcium 8.6 Iron 44 L TIBC 243 L % Saturation 18 Total Bilirubin 0.40 Icterus Index < 2 AST 21 ALT 12 L Alkaline Phosphatase 128 H Troponin I B-Natriuretic Peptide Total Protein 6.5 Albumin 3.7 Globulin 2.8 Albumin/Globulin Ratio 1.3 Specimen Hemolysis < 15 Ur Collection Type Urine Color Urine Clarity Urine pH Ur Specific [place] Urine Protein Urine Glucose (UA) Urine Ketones Urine Occult Blood Urine Nitrate Urine Bilirubin Urine Urobilinogen Ur Leukocyte Esterase Urinalysis Comment Stool Occult Blood <Rhonda Adames 03/09/17 15:06> - Imaging and Cardiology EKG results: image reviewed <Rhonda Adames 03/09/17 15:06> Imaging & Cardiology Narrative: = = = = = = = = = = = = = = = = = = = = = = = = = = = = = = = = = = = = = = = = = = = = = = = = = = = = = = = = = = = Date of Exam: 03/08/17 Ordering Provider: Rand Schmitz APRN Type of Exam(s): XR chest 2V Reason for Exam(s): dyspnea INDICATION: dyspnea PROCEDURE: CHEST 2-VIEWS UPRIGHT (PA & LAT) Encounter: Initial COMPARISON: Chest x-ray dated February 03, [address] dated January 20, 2017 FINDINGS: Lungs are stable in appearance with scattered interstitial prominence and fine areas of groundglass type opacity. No obvious new or worsening airspace disease. No significant areas of improvement compared to the prior study. No pneumothorax probable trace left effusion. Heart size and mediastinal contours are stable. Pulmonary vascularity is unchanged. Impression: Continued airspace abnormalities similar to the prior chest x-ray and probably similar to the prior chest CT which showed atypical infectious or inflammatory infiltrates throughout the lungs. Atypical mycobacterium, fungal and viral pneumonia are within the differential. 03/09/17 14:58 03/09/17 14:58 Date of Exam: 03/08/17 Ordering Provider: Rand Schmitz APRN Type of Exam(s): CT head/brain wo con Reason for Exam(s): fall, head injury Indication: fall, head injury PROCEDURE: CT head/brain wo con: Encounter: Initial Comparison: Head CT dated February 03, 2017 Technique: Axial CT images through the head were performed without contrast. Iterative Reconstruction dose reducing technique was utilized. FINDINGS: Mild atrophy. The ventricles are stable. There is no evidence of acute intracranial hemorrhage, midline displacement, or mass effect. There are scattered areas of low attenuation in the white matter which most likely represent changes of chronic microvascular ischemia. The CT attenuation of the brain parenchyma is otherwise normal within the cerebellum, brain stem, and cerebral hemispheres. The tympanic cavities and mastoid air cells are free of appreciable disease. There are no definite fractures of the skull base, calvarium, or visualized portion of the midface. IMPRESSION: No CT evidence of acute traumatic intracranial injury. <Rhonda Adames - 03/09/17 15:06> - EKG Interpretation EKG shows: atrial fibrillation <Rhonda Adames - 03/09/17 15:06> EKG interpretations - EKG EKG shows: atrial fibrillation <Rhonda Adames - 03/09/17 15:06> - Blocks, axis, hypertrophy, ST abn AV and intraventricular conduction: left anterior fascicular block <Rhonda Adames - 03/09/17 15:06> Assessment and Plan (1) Bradycardia Current visit: Yes Status: Resolved (2) Acute on chronic systolic (congestive) heart failure Current visit: Yes Status: Acute (3) Paroxysmal atrial fibrillation Current visit: Yes Status: Chronic (4) Essential (primary) hypertension Current visit: Yes Status: Chronic (5) Mixed hyperlipidemia Current visit: Yes Status: Chronic (6) Type 2 diabetes mellitus without complications Current visit: Yes Status: Chronic (7) Cardiomyopathy Current visit: Yes Status: Chronic (8) Atherosclerotic heart disease of [place] coronary artery without angina pectoris Current visit: Yes Status: Chronic <Jonathan Hinojosa - 03/11/17 11:29> (1) Acute on chronic systolic (congestive) heart failure Current visit: Yes Status: Acute Diurese with Bumex 2mg IV TID. Monitor Renal and electrolytes. Continue Entresto 24/26 po BID (2) Bradycardia Current visit: Yes Status: Resolved Patient denies syncope but reports severe weakness and dizziness with falls. Continue decreased dose of Coreg 3.125mg daily. Continue cardiac telemetry. (3) Paroxysmal atrial fibrillation Current visit: Yes Status: Chronic DC Amiodarone. Patient remains in AFib. (4) Essential (primary) hypertension Current visit: Yes Status: Chronic (5) Mixed hyperlipidemia Current visit: Yes Status: Chronic (6) Cardiomyopathy Current visit: Yes Status: Chronic Continue Coreg 3.125mg BID, Entresto 24/26 po BID. Wearing LifeVest. Left heart cath scheduled with Dr. Hinojosa (7) Type 2 diabetes mellitus without complications Current visit: Yes Status: Chronic per attending (8) Atherosclerotic heart disease of [place] coronary artery without angina pectoris Current visit: Yes Status: Chronic Left heart cath scheduled with Dr. Hinojosa <Rhonda Adames - 03/09/17 17:44> - Attestation Attestation Narrative: 03/11/17 11:29 Recommendation After examining the patient I agree with the above assessment. I am involved in the formulation of the patient's plan of care. <Jonathan Hinojosa - 03/11/17 11:29> Hospital Course Summary Disclaimer: The visit summary below is not to be considered part of the above Progress Note. <Jonathan Hinojosa - 03/11/17 11:29> The visit summary below is not to be considered part of the above Progress Note. <Rhonda Adames - 03/09/17 11:32> Sepsis Assessment - Evaluation Sepsis screening result: No Definite Risk <Rhonda Adames - 03/09/17 11:32> Addendum entered and electronically signed by Rhonda Adames APRN 03/11/17 10: 58: Anemia is an additional Diagnosis: Patient is not a candidate for anticoagulation due to history of GI bleed resulting in chronic anemia.
[2017-03-09] MEDS: SALINE FLUSH 10ml SYRINGE IV PRN ×2 (16:40→20:43)
--- NOTE | 2017-03-09 18:54 | Internal Med History&Physical ---
Internal Medicine HPI Chief complaint: shortness of breath, hypoxia, presyncope History of present illness: Corrina Aviles is a pleasant 76-year-old white gentleman who was admitted through the emergency department with hypoxia, increasing shortness of breath, presyncope, multiple falls. He has a history of cardiomyopathy with an ejection fraction of approximately 30%, atrial fibrillation, COPD, anemia. Upon arrival to the emergency department his heart rate was in the 40s although his O2 saturation was actually 99%. He was quite weak and lethargic. He has been on amiodarone and carvedilol to control his atrial fibrillation and heart rate which had been running high. Currently he is wearing a defibrillation Vest and follows closely with Dr. Hinojosa. His indicates that she has had multiple episodes of presyncope and weakness causing multiple falls at home. At one moment he seems to be functioning just fine and the next moment he is very weak. This is consistent with occasional significant bradycardia with atrial fibrillation and decreased cardiac output causing presyncope and falls. Review of Systems - Constitutional Constitutional: Present: weakness. Absent: chills, fever(s) - EENMT Eyes: Absent: change in vision Balance: Absent: vertigo Mouth/Throat: Absent: sore throat - Cardiovascular Cardiovascular: Present: dyspnea on exertion, cyanosis. Absent: chest pain, palpitations, syncope Vascular: Present: pedal edema - Respiratory Respiratory: Present: dyspnea, dyspnea on exertion. Absent: cough - Gastrointestinal Gastrointestinal: Absent: diarrhea, hematochezia, melena, nausea, vomiting - Integumentary/Breasts Integumentary: Present: rash, wounds (abrasions to both knees) - Neurological Neurological: Present: dizziness, frequent falls - Psychiatric Psychiatric: Absent: anxiety, behavioral changes, depression - Hematologic/Lymphatic Hematologic/Lymphatic: Absent: easy bleeding, easy bruising, lymphadenopathy - Allergic/Immunologic Allergic/Immunologic: Absent: tongue swelling, throat swelling, urticaria PFSH Patient Stated Medical History Parkinson's Disease Yes Dental Problems Yes: HAS DENTURES Hearing Loss Yes Other HEENT Yes: WEARS GLASSES Cardiac Arrhythmia Yes: AFIB,PVC,V-TACH Congestive Heart Failure Yes Hypertension Yes Rheumatic Fever Yes Valvular Heart Disease Yes Asthma Yes: CHILDHOOD Chronic Obstructive Pulmonary Yes Disease (COPD) Pneumonia Yes Sleep Apnea Yes: WEARS CPAP Diabetes Mellitus Type 2 Yes Hiatal Hernia Yes Hx Benign Prostatic Yes: PROSTATE CA Hyperplasia Hx Incontinence Yes Osteoarthritis Yes Other Musculoskeletal Yes: RLS Other Infectious Yes: UNKNOWN LUNG INFECTION Depression Yes Surgical History: exploratory laproscopy. vasectomy. TURP. hernia repair - Social History Smoking status: Former smoker Substance use type: does not use Alcohol intake frequency: former alcohol drinker Housing: house Household members: spouse Current occupational status: retired Current occupational exposures/hazards: No Does patient use chewing tobacco?: No Current residence: Apartment/Private Home Medications Home Medications Medication Instructions Recorded Confirmed Type Metformin HCl 500 mg PO BIDWM #0 12/26/11 03/08/17 History Albuterol Sulfate [Proair Hfa] 2 puff IH Q6H PRN #0 01/09/14 03/08/17 History B-Complex with Vitamin C [Super B 1 tab PO DAILY #0 11/02/15 03/08/17 History Complex-Vitamin C] Gabapentin 300 mg PO BID #0 11/02/15 03/08/17 History Ropinirole HCl 2 mg PO TID #0 11/02/15 03/08/17 History Acetaminophen [Acetaminophen 8 1,300 mg PO BID PRN #0 11/23/15 03/08/17 History Hour] Bumetanide 2 mg PO BID #0 tab 01/06/17 03/08/17 History Carbidopa/Levodopa [Sinemet 25-100 1 tab PO TID #0 tab 01/06/17 03/08/17 History mg Tablet] Celecoxib [Celebrex] 200 mg PO DAILY #0 cap 01/06/17 03/08/17 History Methocarbamol 750 mg PO QID PRN #0 tab 01/06/17 03/08/17 History Silver Sulfadiazine [Silvadene] 1 applic TOP PRN #0 01/06/17 03/08/17 History Tramadol HCl 50 mg PO Q6HR PRN #0 tab 01/06/17 03/08/17 History Amiodarone [Pacerone] 200 mg PO DAILY #0 01/17/17 03/08/17 History Carvedilol [Coreg] 12.5 mg PO BIDWM #0 01/17/17 03/08/17 History Potassium Chloride 20 meq PO BIDWM #0 01/17/17 03/08/17 History Sacubitril/Valsartan [Entresto 24 1 tab PO BID #0 01/17/17 03/08/17 History mg-26 mg Tablet] Allergies Allergy/AdvReac Type Severity Reaction Status Date / Time prednisone Allergy Unknown ANXIOUS Verified 03/08/17 14:38 dicyclomine AdvReac Severe "MAKES ME Verified 03/08/17 14:38 VERY NERVOUS AND JITTERY" aspirin AdvReac Unknown CAUSES GI Verified 03/08/17 14:38 BLEEDING ciprofloxacin AdvReac Unknown HYPERACTIVE Verified 03/08/17 14:38 Exam Vital signs: Temperature 96.5 F L 03/09/17 16:00 Pulse Rate 64 03/09/17 16:00 Respiratory Rate 18 03/09/17 16:00 Blood Pressure 116/67 03/09/17 16:00 Pulse Oximetry 94 03/09/17 16:00 Oxygen Delivery Method Room Air - Constitutional mild distress - Routine HEENT Exam Head: Present: normocephalic, atraumatic Eye: Present: EOMI, PERRL, conjunctivae pink. Absent: conjunctival icterus, scleral injection ENT: Present: mucous membranes moist, oropharynx clear, nares patent Nose: moist mucous membranes Throat: normal inspection - Routine Neck Exam Present: supple, JVD. Absent: lymphadenopathy, thyromegaly, tenderness - Routine Chest/Breast/Axilla Exam Chest wall: Absent: tenderness Axillae: Absent: lymphadenopathy - Routine Respiratory Exam Present: dyspnea, rales. Absent: accessory muscle use, rhonchi - Routine Cardiovascular Exam Present: irregular rhythm - Routine Abdominal Exam Present: soft, normoactive bowel sounds, non distended, non tender. Absent: rebound, guarding, rigid - Routine Extremities Exam Present: edema, non tender. Absent: cyanosis, clubbing, calf tenderness - Routine Skin Exam Present: intact, wounds (abrasions to both knees). Absent: erythema, pallor, mottling, petechiae, urticaria, jaundice - Routine Neurological Exam Present: alert, oriented X3, CN II-XII intact, normal reflexes, moving all extremities - Routine Psychiatric Exam Present: normal affect, cooperative. Absent: depressed, anxious, agitated Internal Medicine Results - Labs CBC & Chem 7: 03/09/17 04:39 03/09/17 04:39 Labs: Short CBC 03/09/17 Range/Units 04:39 WBC 6.1 (4.5-11.0) T/MM3 Hgb 9.4 L (13.5-17.5) GM/DL Hct 32.7 L (41-53) % Plt Count 184 (130-400) T/MM3 BMP 03/09/17 04:39 Sodium 141 Potassium 5.3 H Chloride 106 Carbon Dioxide 28 BUN 32.0 H Creatinine 1.2 Glucose 105 Calcium 8.6 Liver Function 03/09/17 Range/Units 04:39 Total Bilirubin 0.40 (0.20-1.30) MG/DL AST 21 (17-59) U/L ALT 12 L (21-72) U/L Alkaline Phosphatase 128 H (38-126) U/L Albumin 3.7 (3.5-5.0) G/DL - Imaging and Cardiology Chest x-ray Status: image reviewed by me Assessment and Plan (1) Acute on chronic systolic (congestive) heart failure Current visit: Yes Status: Acute Cardiology consultation (2) Atherosclerotic heart disease of [place] coronary artery without angina pectoris Current visit: Yes Status: Chronic (3) Cardiomyopathy Current visit: Yes Status: Chronic Managed by cardiology (4) Bradycardia Current visit: Yes Status: Resolved Amiodarone held and carvedilol dose reduced (5) Paroxysmal atrial fibrillation Current visit: Yes Status: Chronic (6) Essential (primary) hypertension Current visit: Yes Status: Chronic (7) Mixed hyperlipidemia Current visit: Yes Status: Chronic (8) Type 2 diabetes mellitus without complications Current visit: Yes Status: Chronic (9) Pre-syncope Current visit: Yes Status: Acute (10) Multiple falls Current visit: Yes Status: Acute Sepsis Assessment - Evaluation Sepsis screening result: No Definite Risk
[2017-03-09] MEDS ORDERED: FALL RISK - PHARMACY CONSULT XX PRN (19:08)
[2017-03-09] MEDS: TRAMADOL 50 MG TABLET PO PRN (20:44)
[2017-03-09] MEDS: ALBUTEROL 2.5mg/3ml (0.083%) NEB AEROSOL SCH (21:34)
[2017-03-10] MEDS: ALBUTEROL 2.5mg/3ml (0.083%) NEB AEROSOL SCH ×2 (08:05→20:00)
[2017-03-10] MEDS: CARVEDILOL 3.125 MG TABLET PO SCH ×2 (08:54→17:34)
[2017-03-10] MEDS: METFORMIN 500 MG TABLET PO SCH ×2 (08:54→17:34)
[2017-03-10] MEDS: CELECOXIB 200 MG CAPSULE PO SCH (08:55)
[2017-03-10] MEDS: VITAMIN B COMPLEX + C TABLET PO SCH (08:56)
[2017-03-10] MEDS: GABAPENTIN 300 MG CAPSULE PO SCH ×2 (08:56→23:25)
[2017-03-10] MEDS: SACUBITRIL/VALSARTAN 24/26mg TABLET PO SCH ×2 (08:56→23:25)
[2017-03-10] MEDS: ROPINIROLE 2 MG TABLET PO SCH ×3 (08:56→23:27)
[2017-03-10] MEDS: INSULIN ASPART 100unit/ml INJECTION SQ PRN ×2 (11:44→17:33)
--- NOTE | 2017-03-10 12:28 | Progress Note ---
<Mago Kendall V - Last Filed: 03/10/17 12:16> Subjective: Mr Aviles is seen today in follow-up, covering for Dr. Mayfield. [place] is up at the sink shaving this morning upon my arrival to his room. He is alert, oriented and pleasant. Noted to be wearing his LifeVest given his significant cardiomyopathy. He denies having any dizziness, lightheadedness, chest pain or shortness of breath. Voiding without difficulty, appetite is good as he continues to eat 100%. Chart reviewed. Objective Vital signs: Temperature 98.1 F 03/10/17 07:32 Pulse Rate 75 03/10/17 08:00 Respiratory Rate 16 03/10/17 08:06 Blood Pressure 131/69 03/10/17 07:32 Pulse Oximetry 97 03/10/17 08:06 Oxygen Delivery Method Room Air Weight: 79.832 kg - Constitutional Present: no acute distress - Routine HEENT Exam Head: Present: normocephalic, atraumatic Eye: Present: EOMI, PERRL - Routine Respiratory Exam Present: CTA bilaterally - Routine Cardiovascular Exam Present: RRR, S1, S2 - Routine Abdominal Exam Present: soft, normoactive bowel sounds, non distended, non tender - Routine Extremities Exam Present: full ROM - Routine Back/Spine/Pelvis Exam Back/Spine: Present: full ROM - Routine Skin Exam Present: intact, dry, warm - Routine Neurological Exam Present: alert, oriented X3, CN II-XII intact - Routine Psychiatric Exam Present: normal affect, normal thought process Results - Labs CBC & Chem 7: 03/10/17 07:55 03/10/17 07:55 Assessment and Plan Assessment and Plan: Acute on chronic systolic congestive heart failure. 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 Proximal atrial fibrillation. Type II diabetes Hypertension Plan 03/10/17-covering for Dr. Mayfield Reviewed telemetry, patient continues to be in chronic atrial fibrillation, rate 60s to 70s Beta dejah, Coreg was decreased by cardiology team to 3.125 twice a day. Monitor for evidence of bradycardia. Continues on Entresto po BID. Scheduled for heart catheterization on March [address] Hinojosa Monitor Accu-Cheks, blood sugar this morning was elevated at 260. Initiate sliding scale NovoLog insulin, and continue with routine metformin twice a day Will also change diet to ADA 1800 diet in addition to current cardiac diet. He does continue on Bumex 2 milligrams 3 times a day for ongoing diuresis. Reviewed electrolytes. Noted reported hyperkalemia at 5.1, however, specimen hemolysis indicator is elevated. Suspect this is a lat error, will recheck tomorrow SCDs to bilateral lower extremity for DVT prophylaxis Scuffs further orders and plan of care with attending, Dr. Bates Sepsis Assessment - Evaluation Sepsis screening result: No Definite Risk Hospital Course Summary Disclaimer: The visit summary below is not to be considered part of the above Progress Note. Hospital Course: 03/10/17-covering hospitalist Acute on chronic systolic congestive heart failure. 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 Proximal atrial fibrillation. Type II diabetes Hypertension Plan 03/10/17-covering for Dr. Mayfield Reviewed telemetry, patient continues to be in chronic atrial fibrillation, rate 60s to 70s Beta dejah, Coreg was decreased by cardiology team to 3.125 twice a day. Monitor for evidence of bradycardia. Continues on Entresto 24/ po BID. Scheduled for heart catheterization on March [address] Hinojosa Monitor Accu-Cheks, blood sugar this morning was elevated at 260. Initiate sliding scale NovoLog insulin, and continue with routine metformin twice a day Will also change diet to ADA 1800 diet in addition to current cardiac diet. He does continue on Bumex 2 milligrams 3 times a day for ongoing diuresis. Reviewed electrolytes. Noted reported hyperkalemia at 5.1, however, specimen hemolysis indicator is elevated. Suspect this is a lat error, will recheck tomorrow SCDs to bilateral lower extremity for DVT prophylaxis Scuffs further orders and plan of care with attending, Dr. Bates <Mariah Bates - Last Filed: 03/10/17 18:18> Objective Vital signs: Temperature 96.5 F L 03/10/17 14:57 Pulse Rate 73 03/10/17 14:57 Respiratory Rate 18 03/10/17 14:57 Blood Pressure 134/76 03/10/17 14:57 Pulse Oximetry 92 03/10/17 14:57 Oxygen Delivery Method Room Air Results - Labs CBC & Chem 7: 03/10/17 07:55 07/08/17 07:55 Assessment and Plan (1) Acute on chronic systolic (congestive) heart failure Current visit: Yes Status: Acute (2) Pre-syncope Current visit: Yes Status: Acute (3) Cardiomyopathy Current visit: Yes Status: Chronic Assessment and Plan: I have independently evaluated and examined this patient. I reviewed the chart, the patient's history, and the MACHINE SETTER SUPERVISOR's documented findings as above. We discussed and formulated the assessment and plan as above with additions as below: Patient reports he's lightheaded briefly when he stands up but has not felt as though he will pass out or fall again. He is diuresing well with fluid balance - 2.7 L yesterday although his weight does not reflect fluid loss. He denied dyspnea. He reports that he is getting stir crazy in the room and would like to walk in the halls. NAD, alert Respirations nonlabored, good airflow, breath sounds clear without wheezing Blood sugar 260 this morning prior to lunch-insulin added. Continue diuresis. Magnesium 2.0 today. Increase activity but patient advised he must ambulate with staff members present. Iron studies suggestive of chronic disease, ferritin pending. Heart rate mid 60s-70s today. Hospital Course Summary Disclaimer: The visit summary below is not to be considered part of the above Progress Note.
[2017-03-10] MEDS: SALINE FLUSH 10ml SYRINGE IV PRN (23:38)
[2017-03-11] MEDS: ALBUTEROL 2.5mg/3ml (0.083%) NEB AEROSOL SCH ×2 (07:36→20:00)
[2017-03-11] MEDS: VITAMIN B COMPLEX + C TABLET PO SCH (08:32)
[2017-03-11] MEDS: CARVEDILOL 3.125 MG TABLET PO SCH ×2 (08:32→17:03)
[2017-03-11] MEDS: METFORMIN 500 MG TABLET PO SCH ×2 (08:32→17:03)
[2017-03-11] MEDS: GABAPENTIN 300 MG CAPSULE PO SCH ×2 (08:33→21:46)
[2017-03-11] MEDS: SACUBITRIL/VALSARTAN 24/26mg TABLET PO SCH ×2 (08:33→21:46)
[2017-03-11] MEDS: CELECOXIB 200 MG CAPSULE PO SCH (08:33)
[2017-03-11] MEDS: ROPINIROLE 2 MG TABLET PO SCH ×3 (08:40→21:46)
[2017-03-11] MEDS: SALINE FLUSH 10ml SYRINGE IV PRN (08:41)
--- NOTE | 2017-03-11 17:47 | Progress Note ---
<More Julien - Last Filed: 03/11/17 17:44> Subjective: Zak is seen today in follow up. He is up in bed, reports feeling fairly well. Denies any pain or acute c/o. Is anxious to eat dinner. Very pleasant and cooperative. Chart is reviewed for collateral information. Objective Vital signs: Temperature 96.5 F L 03/11/17 15:30 Pulse Rate 93 03/11/17 15:30 Respiratory Rate 18 03/11/17 15:30 Blood Pressure 138/69 03/11/17 15:30 Pulse Oximetry 93 03/11/17 15:30 Oxygen Delivery Method Room Air Weight: 77.2 kg - Constitutional Present: no acute distress, well nourished, well developed - Routine HEENT Exam Eye: Present: EOMI, PERRL ENT: Present: mucous membranes moist - Routine Respiratory Exam Present: decreased breath sounds, crackles (Very faint crackles in bilateral bases. ). Absent: dyspnea - Routine Cardiovascular Exam Present: RRR, S1, S2 - Routine Abdominal Exam Present: soft, normoactive bowel sounds, non distended, non tender - Routine Extremities Exam Present: no edema, non tender - Routine Back/Spine/Pelvis Exam Back/Spine: Present: full ROM - Routine Skin Exam Present: dry, warm - Routine Neurological Exam Present: alert, oriented X3 - Routine Psychiatric Exam Present: normal affect, cooperative Results - Labs CBC & Chem 7: 03/11/17 04:31 03/11/17 04:31 Assessment and Plan (1) Acute on chronic systolic (congestive) heart failure Current visit: Yes Status: Acute (2) Cardiomyopathy Current visit: Yes Status: Chronic (3) Essential (primary) hypertension Current visit: Yes Status: Chronic (4) Mixed hyperlipidemia Current visit: Yes Status: Chronic (5) Paroxysmal atrial fibrillation Current visit: Yes Status: Chronic (6) Type 2 diabetes mellitus without complications Current visit: Yes Status: Chronic (7) Pre-syncope Current visit: Yes Status: Acute DVT Prophylaxis: SCD's Assessment and Plan: 03/11/17-Hospitalist covering for Dr. Mayfield Patient is doing well overall. Plans for potential HC next week. *HFrEF ~30% LifeVest. Would consider increasing his Coreg to at least 6.125mg BID and Entresto to next dose for maximum effect. Bumex TID IV. Weight is down 2kg overnight. Potential heart cath in the next week or so. Consider DC VALENCIA-2 inhibitor *Parox AFib- Heart rate currently controlled. Continue Coreg. Anticoagulation per cardiology recommendations. *HTN- BP is well controlled on current. Would potentially support increase in cardiac meds. *Chronic anemia- some improvement with diuresis, suspect a hemodilution component. Will order repeat labs for in AM. Sepsis Assessment - Evaluation Sepsis screening result: No Definite Risk Hospital Course Summary Disclaimer: The visit summary below is not to be considered part of the above Progress Note. Hospital Course: 03/10/17-covering hospitalist Acute on chronic systolic congestive heart failure. 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 Proximal atrial fibrillation. Type II diabetes Hypertension Plan 03/10/17-covering for Dr. Mayfield Reviewed telemetry, patient continues to be in chronic atrial fibrillation, rate 60s to 70s Beta dejah, Coreg was decreased by cardiology team to 3.125 twice a day. Monitor for evidence of bradycardia. Continues on Entresto po BID. Scheduled for heart catheterization on March [address] Hinojosa Monitor Accu-Cheks, blood sugar this morning was elevated at 260. Initiate sliding scale NovoLog insulin, and continue with routine metformin twice a day Will also change diet to ADA 1800 diet in addition to current cardiac diet. He does continue on Bumex 2 milligrams 3 times a day for ongoing diuresis. Reviewed electrolytes. Noted reported hyperkalemia at 5.1, however, specimen hemolysis indicator is elevated. Suspect this is a lat error, will recheck tomorrow SCDs to bilateral lower extremity for DVT prophylaxis Scuffs further orders and plan of care with attending, Dr. Bates 03/11/17 17:54 Patient is doing well overall. Plans for potential HC next week. *HFrEF ~30% LifeVest. Would consider increasing his Coreg to at least 6.125mg BID and Entresto to next dose for maximum effect. Bumex TID IV. Weight is down 2kg overnight. Potential heart cath in the next week or so. Consider DC VALENCIA-2 inhibitor *Parox AFib- Heart rate currently controlled. Continue Coreg. Anticoagulation per cardiology recommendations. *HTN- BP is well controlled on current. Would potentially support increase in cardiac meds. *Chronic anemia- some improvement with diuresis, suspect a hemo-dilution component. Will order repeat labs for in AM. <Mariah Bates Juan - Last Filed: 03/11/17 20:17> Objective Vital signs: Temperature 97.2 F 03/11/17 19:53 Pulse Rate 69 03/11/17 19:53 Respiratory Rate 20 03/11/17 20:00 Blood Pressure 143/69 H 03/11/17 19:53 Pulse Oximetry 85 L 03/11/17 20:00 Oxygen Delivery Method Room Air Results - Labs CBC & Chem 7: 03/11/17 04:31 03/11/17 04:31 Assessment and Plan (1) Acute on chronic systolic (congestive) heart failure Current visit: Yes Status: Acute (2) Paroxysmal atrial fibrillation Current visit: Yes Status: Chronic (3) Essential (primary) hypertension Current visit: Yes Status: Chronic (4) Mixed hyperlipidemia Current visit: Yes Status: Chronic (5) Type 2 diabetes mellitus without complications Current visit: Yes Status: Chronic (6) Cardiomyopathy Current visit: Yes Status: Chronic (7) Pre-syncope Current visit: Yes Status: Acute Assessment and Plan: I have independently evaluated and examined this patient. I reviewed the chart, the patient's history, and the AUTO WHEEL ALIGNMENT SPECIALIST's documented findings as above. We discussed and formulated the assessment and plan as above with additions as below: Mr. Aviles seen in cross coverage for Dr. Mayfield. Patient denies dyspnea at rest but has minor exertional dyspnea. He is diuresing well and got little sleep due to urinating frequently during the night. He denies chest pain. He has minor lightheadedness when he initially gets up but has not felt like he would pass out or fall. Patient denies dysuria. NAD, alert Respirations are nonlabored with good airflow, there are some crackles at the bases bilaterally Irregularly irregular heart rhythm Trace edema at the ankles only Doing well, telemetry reviewed-A. fib with PVCs. Weight down 2.6 kg. Chest x-ray in a.m., Bumex decreased to 2 mg twice daily at 8 AM and 2 PM. Prior attempts to increase carvedilol does have resulted in bradycardia, presyncope, and falls. Dose not adjusted. Dr. Mayfield resumes care in a.m. Hospital Course Summary Disclaimer: The visit summary below is not to be considered part of the above Progress Note.
[2017-03-11] MEDS: TRAMADOL 50 MG TABLET PO PRN (18:27)
[2017-03-11] MEDS: INSULIN ASPART 100unit/ml INJECTION SQ PRN (21:45)
[2017-03-12] MEDS: SALINE FLUSH 10ml SYRINGE IV PRN ×2 (02:39→14:36)
[2017-03-12] MEDS: TRAMADOL 50 MG TABLET PO PRN (04:48)
[2017-03-12] MEDS: CARVEDILOL 3.125 MG TABLET PO SCH ×2 (08:33→17:17)
[2017-03-12] MEDS: VITAMIN B COMPLEX + C TABLET PO SCH (08:33)
[2017-03-12] MEDS: ROPINIROLE 2 MG TABLET PO SCH ×2 (08:33→14:36)
[2017-03-12] MEDS: METFORMIN 500 MG TABLET PO SCH ×2 (08:33→17:17)
[2017-03-12] MEDS: SACUBITRIL/VALSARTAN 24/26mg TABLET PO SCH (08:33)
[2017-03-12] MEDS: GABAPENTIN 300 MG CAPSULE PO SCH (08:33)
[2017-03-12] MEDS: CELECOXIB 200 MG CAPSULE PO SCH (08:33)
[2017-03-12] MEDS: ALBUTEROL 2.5mg/3ml (0.083%) NEB AEROSOL SCH (09:49)
[2017-03-12 10:02] VITALS: RESP 20
--- NOTE | 2017-03-12 11:38 | Cardiology Progress Note ---
Subjective Principal diagnosis: Bradycardia, acute on chronic systolic heart failure < Rhonda Adames - 03/12/17 11:50> Interval history: Almas is seen in his room on [facility] after having gone for a walk with nursing staff around the unit. He denies chest pain or pressure, palpitations, dyspnea, dizziness or lightheadedness. He states he looks forward to his heart cath so he can find out what is causing his heart failure. <Rhonda Adames - 03/12/17 11:50> Exam Vital signs: Temperature 95.7 F L 03/12/17 15:51 Pulse Rate 76 03/12/17 16:00 Respiratory Rate 20 03/12/17 15:51 Blood Pressure 120/77 03/12/17 15:51 Pulse Oximetry 93 03/12/17 15:51 Oxygen Delivery Method Room Air Oxygen Flow Rate 2 <Jonathan Hinojosa - 03/14/17 13:28> Temperature 95.6 F L 03/12/17 07:31 Pulse Rate 88 03/12/17 08:00 Respiratory Rate 20 03/12/17 09:51 Blood Pressure 129/66 03/12/17 07:31 Pulse Oximetry 96 03/12/17 09:51 Oxygen Delivery Method Room Air Oxygen Flow Rate 2 <Rhonda Adames 03/12/17 11:50> - Constitutional no acute distress, well nourished, cooperative <Rhonda Adames 03/12/17 11: 50> - Routine HEENT Exam ENT: Present: mucous membranes moist <Rhonda Adames 03/12/17 11:50> - Routine Neck Exam Absent: JVD, carotid bruit <RosangelaRhonda Merrill 03/12/17 11:50> - Routine Chest/Breast/Axilla Exam Chest wall: Absent: tenderness <RosangelaRhonda Momin 03/12/17 11:50> - Routine Respiratory Exam Present: decreased breath sounds, CTA bilaterally <RosangelaRhonda Merrill 03/12/17 11:50> - Routine Cardiovascular Exam Present: no murmur, irregular rhythm. Absent: JVD <RosangelaRhonda singh Merrill 03/12/17 11:50> - Routine Abdominal Exam Present: soft, non tender <RosangelaRhonda singh Merrill 03/12/17 11:50> - Routine Extremities Exam Present: no edema <Rhonda Adames - 03/12/17 11:50> - Routine Skin Exam Present: intact <Rhonda Adames - 03/12/17 11:50> - Routine Neurological Exam Present: alert, oriented X3 <Rhonda Adames - 03/12/17 11:50> - Routine Psychiatric Exam Present: normal affect, normal thought process <Rhonda Adames - 03/12/17 11: 50> - Additional findings Additional findings: Laboratory Results - last 72 hr 03/09/17 03/09/17 03/10/17 17:36 20:22 06:13 WBC RBC Hgb Hct MCV MCH MCHC RDW Std Deviation Plt Count MPV Immature Gran % (Auto) Neut % (Auto) Lymph % (Auto) [place] % (Auto) Eos % (Auto) Baso % (Auto) Neut # Lymph # [place] # Eos # Baso # Abs Immat Gran (auto) Turbidity Sodium Potassium Chloride Carbon Dioxide Anion Gap BUN Creatinine GFR Calculation BUN/Creatinine Ratio Glucose Glucometer 116 198 124 Calculated Osmolality Calcium Phosphorus Magnesium Icterus Index B-Natriuretic Peptide Albumin Specimen Hemolysis 03/10/17 03/10/17 03/10/17 07:55 07:55 11:13 WBC 6.1 RBC 3.76 L Hgb 9.9 L Hct 32.8 L MCV 87.2 MCH 26.3 MCHC 30.2 L RDW Std Deviation 69.9 H Plt Count 196 MPV 11.7 Immature Gran % (Auto) Neut % (Auto) Lymph % (Auto) [place] % (Auto) Eos % (Auto) Baso % (Auto) Neut # Lymph # [place] # Eos # Baso # Abs Immat Gran (auto) Turbidity < 20 Sodium 142 Potassium 5.1 H Chloride 104 Carbon Dioxide 30 Anion Gap 8 BUN 24.0 H Creatinine 1.1 GFR Calculation 65 BUN/Creatinine Ratio 22 Glucose 95 Glucometer 260 Calculated Osmolality 277 Calcium 8.4 Phosphorus Magnesium 2.0 Icterus Index < 2 B-Natriuretic Peptide Albumin Specimen Hemolysis 44 H 03/10/17 03/10/17 03/11/17 17:16 21:08 04:31 WBC 7.3 RBC 4.30 L Hgb 11.1 L D Hct 38.1 L D MCV 88.6 MCH 25.8 L MCHC 29.1 L RDW Std Deviation 72.3 H Plt Count 210 MPV 12.1 Immature Gran % (Auto) Neut % (Auto) Lymph % (Auto) [place] % (Auto) Eos % (Auto) Baso % (Auto) Neut # Lymph # [place] # Eos # Baso # Abs Immat Gran (auto) Turbidity Sodium Potassium Chloride Carbon Dioxide Anion Gap BUN Creatinine GFR Calculation BUN/Creatinine Ratio Glucose Glucometer 224 144 Calculated Osmolality Calcium Phosphorus Magnesium Icterus Index B-Natriuretic Peptide Albumin Specimen Hemolysis 03/11/17 03/11/17 03/11/17 04:31 06:49 11:08 WBC RBC Hgb Hct MCV MCH MCHC RDW Std Deviation Plt Count MPV Immature Gran % (Auto) Neut % (Auto) Lymph % (Auto) [place] % (Auto) Eos % (Auto) Baso % (Auto) Neut # Lymph # [place] # Eos # Baso # Abs Immat Gran (auto) Turbidity < 20 Sodium 140 Potassium 4.3 Chloride 97 L D Carbon Dioxide 33 H Anion Gap 10 BUN 20.0 Creatinine 1.0 GFR Calculation 72 BUN/Creatinine Ratio 20 Glucose 92 Glucometer 121 141 Calculated Osmolality 272 Calcium 8.6 Phosphorus Magnesium 2.1 Icterus Index < 2 B-Natriuretic Peptide Albumin Specimen Hemolysis 70 H 03/11/17 03/11/17 03/12/17 16:48 21:07 04:22 WBC 6.1 RBC 3.86 L Hgb 10.3 L Hct 34.3 L MCV 88.9 MCH 26.7 MCHC 30.0 L RDW Std Deviation 70.9 H Plt Count 214 MPV 11.1 Immature Gran % (Auto) 0.7 H Neut % (Auto) 60.7 Lymph % (Auto) 26.3 [place] % (Auto) 8.9 Eos % (Auto) 3.1 Baso % (Auto) 0.3 Neut # 3.7 Lymph # 1.6 [place] # 0.5 Eos # 0.2 Baso # 0.0 Abs Immat Gran (auto) 0.04 H Turbidity Sodium Potassium Chloride Carbon Dioxide Anion Gap BUN Creatinine GFR Calculation BUN/Creatinine Ratio Glucose Glucometer 147 209 Calculated Osmolality Calcium Phosphorus Magnesium Icterus Index B-Natriuretic Peptide Albumin Specimen Hemolysis 03/12/17 03/12/17 04:23 05:55 WBC RBC Hgb Hct MCV MCH MCHC RDW Std Deviation Plt Count MPV Immature Gran % (Auto) Neut % (Auto) Lymph % (Auto) [place] % (Auto) Eos % (Auto) Baso % (Auto) Neut # Lymph # [place] # Eos # Baso # Abs Immat Gran (auto) Turbidity < 20 Sodium 140 Potassium 3.6 Chloride 96 L Carbon Dioxide 35 H Anion Gap 9 BUN 19.0 Creatinine 1.0 GFR Calculation 72 BUN/Creatinine Ratio 19 Glucose 183 H Glucometer 193 Calculated Osmolality 276 Calcium 8.6 Phosphorus 3.3 Magnesium 1.7 D Icterus Index < 2 B-Natriuretic Peptide 7750 H Albumin 3.3 L Specimen Hemolysis < 15 Acetaminophen (Tylenol Arthritis) 1,300 mg PO BID PRN PRN Reason: Pain Albuterol Sulfate (Proventil Neb (0.083%)) 2.5 mg IH Q6H PRN PRN Reason: Shortness of air Last Admin: 03/09/17 07:12 Dose: 2.5 mg Albuterol Sulfate (Proventil Neb (0.083%)) 2.5 mg AEROSOL BID [facility] Last Admin: 03/12/17 09:49 Dose: 2.5 mg Bumetanide (Bumex) 2 mg IVP 0800,1400 [facility] Last Admin: 03/12/17 08:32 Dose: 2 mg Carbidopa/Levodopa (Sinemet) 1 tab PO TID/E [facility] Last Admin: 03/12/17 06:31 Dose: 1 tab Carvedilol (Coreg) 3.125 mg PO BIDWM [facility] Last Admin: 03/12/17 08:33 Dose: 3.125 mg Celecoxib (Celebrex) 200 mg PO DAILY [facility] Last Admin: 03/12/17 08:33 Dose: 200 mg Gabapentin (Neurontin) 300 mg PO BID [facility] Last Admin: 03/12/17 08:33 Dose: 300 mg Insulin Aspart (Novolog) 0 unit SQ SS PRN; Protocol PRN Reason: Hyperglycemia Last Admin: 03/11/17 21:45 Dose: 2 unit Metformin HCl (Glucophage) 500 mg PO BIDWM [facility] Last Admin: 03/12/17 08:33 Dose: 500 mg Methocarbamol (Robaxin) 500 mg PO Q8H PRN Multivitamins (Total B + C) 1 tab PO DAILY [facility] Last Admin: 03/12/17 08:33 Dose: 1 tab Pharmacy Consult () 1 each XX ONE TIME PRN PRN Reason: PRN orders Ropinirole HCl (Requip) 2 mg PO TID [facility] Last Admin: 03/12/17 08:33 Dose: 2 mg Sacubitril/Valsartan (Entresto 24 Mg-26 Mg Tablet) 1 tab PO BID [facility] Last Admin: 03/12/17 08:33 Dose: 1 tab Silver Sulfadiazine (Silvadene) 1 applic TOP PRN PRN PRN Reason: Skin issue on arm. Last Admin: 03/09/17 20:44 Dose: 1 applic Sodium Chloride (Iv Flush) 10 - 80 ml IV PRN PRN PRN Reason: Flushing Last Admin: 03/12/17 02:39 Dose: 10 ml Tramadol HCl (Ultram) 50 mg PO Q6HR PRN PRN Reason: P Last Admin: 03/12/17 04:48 Dose: 50 mg <Rhonda Adames - 03/12/17 11:50> Hospital Course This is a general summary of the patient's hospital course. For more details refer to the complete medical record. <Jonathan Hinojosa - 03/14/17 13:28> This is a general summary of the patient's hospital course. For more details refer to the complete medical record. <Rhonda Adames - 03/12/17 11:50> Hospital course: 03/09/17 Acute on chronic SCHF-Diurese with Bumex 2mg IV TID. Monitor Renal and electrolytes. Continue Entresto 24/26 po BID Bradycardia-Patient denies syncope but reports severe weakness and dizziness with falls. Continue decreased dose of Coreg 3.125mg daily. Continue cardiac telemetry. AFib-DC Amiodarone. Patient remains in AFib. Patient is not a candidate for anticoagulation due to recent GI bleed, chronic anemia, and recent falls. Cardiomyopathy-Continue Coreg 3.125mg BID, Entresto 24/26 po BID. Wearing LifeVest. Left heart cath scheduled with Dr. Hinojosa 03/10/17-covering hospitalist Acute on chronic systolic congestive heart failure. 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 Proximal atrial fibrillation. Type II diabetes Hypertension Plan 03/10/17-covering for Dr. Mayfield Reviewed telemetry, patient continues to be in chronic atrial fibrillation, rate 60s to 70s Beta dejah, Coreg was decreased by cardiology team to 3.125 twice a day. Monitor for evidence of bradycardia. Continues on Entresto po BID. Scheduled for heart catheterization on March [address] Hinojosa Monitor Accu-Cheks, blood sugar this morning was elevated at 260. Initiate sliding scale NovoLog insulin, and continue with routine metformin twice a day Will also change diet to ADA 1800 diet in addition to current cardiac diet. He does continue on Bumex 2 milligrams 3 times a day for ongoing diuresis. Reviewed electrolytes. Noted reported hyperkalemia at 5.1, however, specimen hemolysis indicator is elevated. Suspect this is a lat error, will recheck tomorrow SCDs to bilateral lower extremity for DVT prophylaxis Scuffs further orders and plan of care with attending, Dr. Bates 03/11/17 17:54 Patient is doing well overall. Plans for potential HC next week. *HFrEF ~30% LifeVest. Would consider increasing his Coreg to at least 6.125mg BID and Entresto to next dose for maximum effect. Bumex TID IV. Weight is down 2kg overnight. Potential heart cath in the next week or so. Consider DC VALENCIA-2 inhibitor *Parox AFib- Heart rate currently controlled. Continue Coreg. Anticoagulation per cardiology recommendations. *HTN- BP is well controlled on current. Would potentially support increase in cardiac meds. *Chronic anemia- some improvement with diuresis, suspect a hemo-dilution component. Will order repeat labs for in AM. 03/12/17 Diuresed well, BNP down [place] 7750 today [place] [address] on Sunday. HR 60-80s with low dose BB. No further dizziness. Continues to wear LifeVest. <Rhonda Adames - 03/12/17 11:50> Progress Note-A&P (1) Bradycardia Status: Resolved (2) Acute on chronic systolic (congestive) heart failure Status: Acute (3) Paroxysmal atrial fibrillation Status: Chronic (4) Essential (primary) hypertension Status: Chronic (5) Mixed hyperlipidemia Status: Chronic (6) Type 2 diabetes mellitus without complications Status: Chronic (7) Cardiomyopathy Status: Chronic (8) Atherosclerotic heart disease of [place] coronary artery without angina pectoris Status: Chronic <Jonathan Hinojosa - 03/14/17 13:28> (1) Acute on chronic systolic (congestive) heart failure Status: Acute (2) Bradycardia Status: Resolved (3) Paroxysmal atrial fibrillation Status: Chronic (4) Essential (primary) hypertension Status: Chronic (5) Mixed hyperlipidemia Status: Chronic (6) Cardiomyopathy Status: Chronic (7) Type 2 diabetes mellitus without complications Status: Chronic (8) Atherosclerotic heart disease of [place] coronary artery without angina pectoris Status: Chronic <Rhonda Adames - 03/12/17 11:35> - Time Spent With Patient Total time spent is greater than 50% in coordination of care (as documented) at patient's floor/unit and/or counseling patient: <Jonathan Hinojosa - 03/14/17 13:28> Total time spent is greater than 50% in coordination of care (as documented) at patient's floor/unit and/or counseling patient: <Rhonda Adames - 03/12/17 11:50> less than 15 minutes <Rhonda Adames 03/12/17 11:50> - Attestation Attestation Narrative: Recommendation After examining the patient I agree with the above assessment. I am involved in the formulation of the patient's plan of care. <Jonathan Hinojosa - 03/14/17 13:28> Sepsis Assessment - Evaluation Sepsis screening result: No Definite Risk <Rohnda Adames 03/12/17 11:50>
--- NOTE | 2017-03-12 13:49 | Internal Med Progress Note ---
Internal Medicine Subjective Patient was seen and examined in his room. Chart and labs as well as chart notes reviewed from this past weekend. Mr. Aviles is breathing much better at this point. He has been able to ambulate in the [place] freely. Cardiology has ordered a chest x-ray for comparison. He denies chest pain and states that he is breathing much better. He has diuresed well. Exam Vital Signs: Temperature 95.6 F L 03/12/17 07:31 Pulse Rate 88 03/12/17 08:00 Respiratory Rate 20 03/12/17 09:51 Blood Pressure 129/66 03/12/17 07:31 Pulse Oximetry 96 03/12/17 09:51 Oxygen Delivery Method Room Air Oxygen Flow Rate 2 Telemetry Rhythm: A-fib Height: 5 ft 3 in Weight: 75.2 kg Body Mass Index: 31.1 - Constitutional Present: no acute distress - Routine HEENT Exam Head: Present: normocephalic, atraumatic Eye: Present: EOMI, PERRL, conjunctivae pink. Absent: conjunctival icterus, scleral injection ENT: Present: mucous membranes moist, oropharynx clear, nares patent - Routine Neck Exam Present: supple. Absent: JVD, lymphadenopathy, thyromegaly - Routine Chest/Breast/Axilla Exam Chest wall: Absent: tenderness Axillae: Absent: lymphadenopathy - Routine Respiratory Exam Absent: accessory muscle use, dyspnea, decreased breath sounds, rales, respiratory distress, rhonchi, stridor, wheezes - Routine Cardiovascular Exam Present: irregular rhythm - Routine Abdominal Exam Present: soft, normoactive bowel sounds, non distended, non tender. Absent: rebound, guarding, rigid - Routine Extremities Exam Absent: cyanosis, clubbing, edema - Routine Skin Exam Present: intact. Absent: cyanosis, erythema, mottling, petechiae, urticaria, jaundice - Routine Neurological Exam Present: alert, oriented X3, moving all extremities - Routine Psychiatric Exam Present: normal affect, cooperative, good insight. Absent: depressed, anxious Internal Medicine Results - Labs CBC & Chem 7: 03/12/17 04:22 03/12/17 04:23 Labs: Short CBC 03/12/17 Range/Units 04:22 WBC 6.1 (4.5-11.0) T/MM3 Hgb 10.3 L (13.5-17.5) GM/DL Hct 34.3 L (41-53) % Plt Count 214 (130-400) T/MM3 BMP 03/12/17 04:23 Sodium 140 Potassium 3.6 Chloride 96 L Carbon Dioxide 35 H BUN 19.0 Creatinine 1.0 Glucose 183 H Calcium 8.6 Liver Function 03/12/17 Range/Units 04:23 Albumin 3.3 L (3.5-5.0) G/DL Progress Note-A&P (1) Acute on chronic systolic (congestive) heart failure Status: Acute Current Visit: Yes (2) Atherosclerotic heart disease of [place] coronary artery without angina pectoris Status: Chronic Current Visit: Yes (3) Cardiomyopathy Status: Chronic Current Visit: Yes (4) Bradycardia Status: Resolved Current Visit: Yes (5) Paroxysmal atrial fibrillation Status: Chronic Current Visit: Yes (6) Essential (primary) hypertension Status: Chronic Current Visit: Yes (7) Mixed hyperlipidemia Status: Chronic Current Visit: Yes (8) Type 2 diabetes mellitus without complications Status: Chronic Current Visit: Yes (9) Pre-syncope Status: Acute Current Visit: Yes (10) Multiple falls Status: Acute Current Visit: Yes - Time Spent With Patient Total time spent is greater than 50% in coordination of care (as documented) at patient's floor/unit and/or counseling patient: 25 - 35 minutes Sepsis Assessment - Evaluation Sepsis screening result: No Definite Risk Hospital Course Summary Disclaimer: The visit summary below is not to be considered part of the above Progress Note. Hospital Course: 03/09/17 Acute on chronic SCHF-Diurese with Bumex 2mg IV TID. Monitor Renal and electrolytes. Continue Entresto 24/26 po BID Bradycardia-Patient denies syncope but reports severe weakness and dizziness with falls. Continue decreased dose of Coreg 3.125mg daily. Continue cardiac telemetry. AFib-DC Amiodarone. Patient remains in AFib. Patient is not a candidate for anticoagulation due to recent GI bleed, chronic anemia, and recent falls. Cardiomyopathy-Continue Coreg 3.125mg BID, Entresto 24/26 po BID. Wearing LifeVest. Left heart cath scheduled with Dr. Hinojosa 03/10/17-covering hospitalist Acute on chronic systolic congestive heart failure. 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 Proximal atrial fibrillation. Type II diabetes Hypertension Plan 03/10/17-covering for Dr. Mayfield Reviewed telemetry, patient continues to be in chronic atrial fibrillation, rate 60s to 70s Beta dejah, Coreg was decreased by cardiology team to 3.125 twice a day. Monitor for evidence of bradycardia. Continues on Entresto / po BID. Scheduled for heart catheterization on March [address] Hinojosa Monitor Accu-Cheks, blood sugar this morning was elevated at 260. Initiate sliding scale NovoLog insulin, and continue with routine metformin twice a day Will also change diet to ADA 1800 diet in addition to current cardiac diet. He does continue on Bumex 2 milligrams 3 times a day for ongoing diuresis. Reviewed electrolytes. Noted reported hyperkalemia at 5.1, however, specimen hemolysis indicator is elevated. Suspect this is a lat error, will recheck tomorrow SCDs to bilateral lower extremity for DVT prophylaxis Scuffs further orders and plan of care with attending, Dr. Bates 03/11/17 17:54 Patient is doing well overall. Plans for potential HC next week. *HFrEF ~30% LifeVest. Would consider increasing his Coreg to at least 6.125mg BID and Entresto to next dose for maximum effect. Bumex TID IV. Weight is down 2kg overnight. Potential heart cath in the next week or so. Consider DC VALENCIA-2 inhibitor *Parox AFib- Heart rate currently controlled. Continue Coreg. Anticoagulation per cardiology recommendations. *HTN- BP is well controlled on current. Would potentially support increase in cardiac meds. *Chronic anemia- some improvement with diuresis, suspect a hemo-dilution component. Will order repeat labs for in AM. 03/12/17 Diuresed well, BNP down to 7750 today from [address]997 on Sunday. HR 60-80s with low dose BB. No further dizziness. Continues to wear LifeVest. 03/12/17 13:49 Patient appears much improved today. I discussed this case with cardiology. I will continue him on the lower dose of carvedilol. After reviewing his chest x- ray, I may send him home this evening or tomorrow morning if it is stable.
--- NOTE | 2017-03-12 14:07 | XRay Report ---
LOCATION OF DICTATION: [place] EXAM: XR chest 2V HISTORY: dyspnea COMPARISON: Compared to March 08, 2017 FINDINGS: The heart size is normal. Mediastinal configuration is unremarkable. There are stable mild scattered interstitial opacities within the bilateral lungs in stable airspace opacities suggested within the left lung base. No pleural effusions are identified. There is no pneumothorax. Mild/moderate spondylosis of the thoracic spine with stable mild anterior wedging deformities in the midthoracic vertebra. IMPRESSION: 1. Stable mild scattered interstitial opacities within the bilateral lungs. 2. Stable airspace opacities within the left lung base. Continued follow-up is recommended. .
[2017-03-12 15:55] VITALS: BP 120/77; TEMP 95.7; O2SAT 93
[2017-03-12 16:54] VITALS: PULSE 76
[2017-03-12] MEDS: INSULIN ASPART 100unit/ml INJECTION SQ PRN (17:17)
--- NOTE | 2017-03-12 18:48 | Discharge Instructions ---
Discharge Plan - Med Rec/Dispo [place] Instructions: Bradycardia (GEN) Prescriptions: Continue Metformin HCl 500 mg PO BIDWM #0 Carbidopa/Levodopa [Sinemet 25-100 mg Tablet] 1 tab PO TID #0 tab Celecoxib [Celebrex] 200 mg PO DAILY #0 cap Methocarbamol 750 mg PO QID PRN #0 tab PRN Reason: PAIN Carvedilol [Coreg] 12.5 mg PO BIDWM #0 Potassium Chloride 20 meq PO BIDWM #0 Sacubitril/Valsartan [Entresto 24 mg-26 mg Tablet] 1 tab PO BID #0 Albuterol Sulfate [Proair Hfa] 2 puff IH Q6H PRN #0 PRN Reason: SHORTNESS OF AIR Gabapentin 300 mg PO BID #0 Ropinirole HCl 2 mg PO TID #0 B-Complex with Vitamin C [Super B Complex-Vitamin C] 1 tab PO DAILY #0 Acetaminophen [Acetaminophen 8 Hour] 1,300 mg PO BID PRN #0 PRN Reason: PAIN Silver Sulfadiazine [Silvadene] 1 applic TOP PRN #0 Tramadol HCl 50 mg PO Q6HR PRN #0 tab PRN Reason: PAIN Bumetanide 2 mg PO BID #0 tab Discontinued Amiodarone [Pacerone] 200 mg PO DAILY #0 Discharge Instructions/Outpatient Orders: Final Provider Discharge Instructions Location: Determined By Patient - Disposition 01 Discharged Home, Self-Care
--- NOTE | 2017-03-12 19:06 | Discharge Summary ---
Discharge Information Date of admission: 03/10/17 14:40 Anticipated date of discharge: 03/12/17 Attending Physician: Armen Mayfield DO Primary care physician: Armen Mayfield DO Consults: Ashish - Discharge Diagnosis (1) Acute on chronic systolic (congestive) heart failure Status: Acute (2) Atherosclerotic heart disease of [place] coronary artery without angina pectoris Status: Chronic (3) Cardiomyopathy Status: Chronic (4) Bradycardia Status: Resolved (5) Paroxysmal atrial fibrillation Status: Chronic (6) Essential (primary) hypertension Status: Chronic (7) Mixed hyperlipidemia Status: Chronic (8) Type 2 diabetes mellitus without complications Status: Chronic (9) Pre-syncope Status: Acute (10) Multiple falls Status: Acute - Laboratory Labs: 03/12/17 04:22 03/12/17 04:23 History of Present Illness HPI: Corrina Aviles is a pleasant 76-year-old white gentleman who was admitted through the emergency department with hypoxia, increasing shortness of breath, presyncope, multiple falls. He has a history of cardiomyopathy with an ejection fraction of approximately 30%, atrial fibrillation, COPD, anemia. Upon arrival to the emergency department his heart rate was in the 40s although his O2 saturation was actually 99%. He was quite weak and lethargic. He has been on amiodarone and carvedilol to control his atrial fibrillation and heart rate which had been running high. Currently he is wearing a defibrillation Vest and follows closely with Dr. Hinojosa. His indicates that she has had multiple episodes of presyncope and weakness causing multiple falls at home. At one moment he seems to be functioning just fine and the next moment he is very weak. This is consistent with occasional significant bradycardia with atrial fibrillation and decreased cardiac output causing presyncope and falls. Hospital Course This is a general summary of the patient's hospital course. For more details refer to the complete medical record. Hospital course: 03/09/17 Acute on chronic SCHF-Diurese with Bumex 2mg IV TID. Monitor Renal and electrolytes. Continue Entresto 24/ po BID Bradycardia-Patient denies syncope but reports severe weakness and dizziness with falls. Continue decreased dose of Coreg 3.125mg daily. Continue cardiac telemetry. AFib-DC Amiodarone. Patient remains in AFib. Patient is not a candidate for anticoagulation due to recent GI bleed, chronic anemia, and recent falls. Cardiomyopathy-Continue Coreg 3.125mg BID, Entresto 24/26 po BID. Wearing LifeVest. Left heart cath scheduled with Dr. Hinojosa 03/10/17-covering hospitalist Acute on chronic systolic congestive heart failure. 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 Proximal atrial fibrillation. Type II diabetes Hypertension Plan 03/10/17-covering for Dr. Mayfield Reviewed telemetry, patient continues to be in chronic atrial fibrillation, rate 60s to 70s Beta dejah, Coreg was decreased by cardiology team to 3.125 twice a day. Monitor for evidence of bradycardia. Continues on Entresto 24/26 po BID. Scheduled for heart catheterization on March [address] Hinojosa Monitor Accu-Cheks, blood sugar this morning was elevated at 260. Initiate sliding scale NovoLog insulin, and continue with routine metformin twice a day Will also change diet to ADA 1800 diet in addition to current cardiac diet. He does continue on Bumex 2 milligrams 3 times a day for ongoing diuresis. Reviewed electrolytes. Noted reported hyperkalemia at 5.1, however, specimen hemolysis indicator is elevated. Suspect this is a lat error, will recheck tomorrow SCDs to bilateral lower extremity for DVT prophylaxis Scuffs further orders and plan of care with attending, Dr. Bates 03/11/17 17:54 Patient is doing well overall. Plans for potential HC next week. *HFrEF ~30% LifeVest. Would consider increasing his Coreg to at least 6.125mg BID and Entresto to next dose for maximum effect. Bumex TID IV. Weight is down 2kg overnight. Potential heart cath in the next week or so. Consider DC VALENCIA-2 inhibitor *Parox AFib- Heart rate currently controlled. Continue Coreg. Anticoagulation per cardiology recommendations. *HTN- BP is well controlled on current. Would potentially support increase in cardiac meds. *Chronic anemia- some improvement with diuresis, suspect a hemo-dilution component. Will order repeat labs for in AM. 03/12/17 Diuresed well, BNP [place] 7750 [place] [address] on Sunday. HR 60-80s with low dose BB. No further dizziness. Continues to wear LifeVest. 03/12/17 13:49 Patient appears much improved today. I discussed this case with cardiology. I will continue him on the lower dose of carvedilol. After reviewing his chest x- ray, I may send him home this evening or tomorrow morning if it is stable. Time spent with patient: 25 - 35 minutes DVT Prophylaxis: other GI Prophylaxis: other Discharge Plan - Med Rec/Dispo Referrals/Follow Up: Armen Mayfield DO [Family Provider] - Jonathan Hinojosa MD [Physician] - Avelina Instructions: Bradycardia (GEN) Prescriptions: Continue Metformin HCl 500 mg PO BIDWM #0 Carbidopa/Levodopa [Sinemet 25-100 mg Tablet] 1 tab PO TID #0 tab Celecoxib [Celebrex] 200 mg PO DAILY #0 cap Methocarbamol 750 mg PO QID PRN #0 tab PRN Reason: PAIN Carvedilol [Coreg] 12.5 mg PO BIDWM #0 Potassium Chloride 20 meq PO BIDWM #0 Sacubitril/Valsartan [Entresto 24 mg-26 mg Tablet] 1 tab PO BID #0 Albuterol Sulfate [Proair Hfa] 2 puff IH Q6H PRN #0 PRN Reason: SHORTNESS OF AIR Gabapentin 300 mg PO BID #0 Ropinirole HCl 2 mg PO TID #0 B-Complex with Vitamin C [Super B Complex-Vitamin C] 1 tab PO DAILY #0 Acetaminophen [Acetaminophen 8 Hour] 1,300 mg PO BID PRN #0 PRN Reason: PAIN Silver Sulfadiazine [Silvadene] 1 applic TOP PRN #0 Tramadol HCl 50 mg PO Q6HR PRN #0 tab PRN Reason: PAIN Bumetanide 2 mg PO BID #0 tab Discontinued Amiodarone [Pacerone] 200 mg PO DAILY #0 Discharge Instructions/Outpatient Orders: Final Provider Discharge Instructions Location: Determined By Patient - Disposition 01 Discharged Home, Self-Care
[2017-03-13] MEDS ORDERED: BUMETANIDE 1 MG TABLET PO SCH (09:00)
== END 2017-03-12 19:55 | disposition home health service (06) | DRG 293 ==
LOC: MED 14:23 → ED 14:23 → MED 18:55
PROVIDERS: ADMIT Internal Medicine; ATTEND Internal Medicine

== ENCOUNTER 2017-06-04 14:06 | Inpatient (IN) ==
[2017-06-04] MEDS ORDERED: SALINE FLUSH 10ml SYRINGE IVF PRN (14:30)
--- NOTE | 2017-06-04 14:32 | Emergency Department Report ---
General Adult HPI - General Chief complaint: Shortness of Breath/Dyspnea Stated complaint: soa Time Seen by Provider: 06/04/17 14:23 Source: patient, family Mode of arrival: ambulatory Limitations: no limitations - History of Present Illness HPI narrative: 76-year-old male presents to the emergency department with a chief complaint of shortness of breath and feeling lightheaded. Patient has chronic ongoing congestive heart failure. Patient states the symptoms feel like when his congestive heart failure exacerbates. Patient denies any pain or discomfort. Patient notes that his symptoms have been increasing over the past week. Patient was at home when his symptoms began. Symptoms have been persistent in nature since onset. Patient denies any other complaints or associated symptoms. - Related Data Home Medications Medication Instructions Recorded Confirmed Albuterol Sulfate [Proair Hfa] 2 puff IH Q6H PRN #0 01/09/14 06/04/17 B-Complex with Vitamin C [Super B 1 tab PO BID #0 11/02/15 06/04/17 Complex-Vitamin C] Gabapentin 600 mg PO HS #0 11/02/15 06/04/17 Ropinirole HCl 2 mg PO TID #0 11/02/15 06/04/17 Carbidopa/Levodopa [Sinemet 25-100 1 tab PO TID #0 tab 01/06/17 06/04/17 mg Tablet] Celecoxib [Celebrex] 200 mg PO HS #0 cap 01/06/17 06/04/17 Silver Sulfadiazine [Silvadene] 1 applic TOP PRN #0 01/06/17 06/04/17 Tramadol HCl 50 mg PO Q6HR PRN #0 tab 01/06/17 06/04/17 Potassium Chloride 20 meq PO BIDWM #0 01/17/17 06/04/17 Acetaminophen [Arthritis Pain 2 tab PO PRN PRN 03/28/17 06/04/17 Relief] Bumetanide Tab [Bumex Tab] 1 mg PO BID 04/30/17 06/04/17 Metformin [Glucophage] 500 mg PO BIDWM 04/30/17 06/04/17 Albuterol Neb (0.083%) [Proventil 2.5 mg AEROSOL PRN PRN 05/25/17 06/04/17 Neb (0.083%)] SACUBITRIL/VALSARTAN 49/51mg 1 tab PO DAILY 05/25/17 06/04/17 [ENTRESTO 49/51mg] Carvedilol 25 mg PO BID 06/04/17 06/04/17 Allergies Allergy/AdvReac Type Severity Reaction Status Date / Time prednisone Allergy Unknown ANXIOUS Verified 05/25/17 12:54 Corticosteroids Allergy Verified 05/25/17 13:12 (Glucocorticoids) Quinolones Allergy Verified 05/25/17 13:12 tetracycline Allergy Verified 05/25/17 13:12 dicyclomine AdvReac Severe "MAKES ME Verified 05/25/17 12:54 VERY NERVOUS AND JITTERY" aspirin AdvReac Unknown CAUSES GI Verified 05/25/17 12:54 BLEEDING ciprofloxacin AdvReac Unknown HYPERACTIVE Verified 05/25/17 12:54 Review of Systems Constitutional: Denies: fever, chills Eyes: Denies: eye pain, vision change ENT: Denies: ear pain, throat pain Cardiovascular: Denies: chest pain, palpitations Respiratory: Reports: dyspnea. Denies: cough, wheezes Gastrointestinal: Denies: abdominal pain, nausea, vomiting, diarrhea Genitourinary: Denies: urgency, dysuria Musculoskeletal: Denies: back pain, arthralgia Integumentary: Denies: erythema, rash Neurological: Denies: headache, numbness Psychiatric: Denies: anxiety, depression Endocrine: Denies: fatigue, heat or cold intolerance Hematological/Lymphatic: Denies: easy bleeding, easy bruising Allergic/Immunologic: Denies: facial swelling, urticaria PFSH Patient Stated Medical History Dementia Yes Migraine Yes Peripheral Neuropathy Yes Parkinson's Disease Yes Cataracts Yes Dental Problems Yes: HAS DENTURES Hearing Loss Yes Other HEENT Yes: WEARS GLASSES Angina Yes Cardiac Arrhythmia Yes: AFIB,PVC,V-TACH Congestive Heart Failure Yes Coronary Artery Disease Yes Hypertension Yes Myocardial Infarction No Rheumatic Fever Yes Valvular Heart Disease Yes Asthma Yes Chronic Obstructive Pulmonary Yes Disease (COPD) Pneumonia Yes Sleep Apnea Yes Diabetes Mellitus Type 2 Yes Gastroesophageal Reflux Yes Disease Hiatal Hernia Yes Hx Benign Prostatic Yes Hyperplasia Hx Incontinence Yes Hx Urinary Tract Infection Yes Other Yes: PROSTATE CA Anemia Yes Osteoarthritis Yes Other Musculoskeletal Yes: RLS Shingles Yes Other Infectious Yes: UNKNOWN LUNG INFECTION Blood Transfusions Yes: NO PROBLEMS Other Yes: RADATION Depression Yes Surgical History: exploratory laproscopy. vasectomy. TURP. hernia repair Family History: Reviewed and noncontributory. - Social History Smoking status: Former smoker Substance use type: does not use Alcohol intake frequency: does not drink Physical Exam - Limitations Limitations: no limitations - General General appearance: alert, in no apparent distress - Normal Exams: Head:: Normocephalic without trauma Eyes:: Pupils are PERRLA w/ EOMI ENMT:: No facial trauma, nasal exudates, pharyngeal erythema, or exudates are noted Dental: No fractured, loose, or missing teeth noted Neck:: Full range of motion, without adenopathy, JVD, bruits or thyromegaly Chest/Respirations:: Clear all [place] (coarse breath sounds bilaterally.), with good airflow, and symmetry bilaterally Cardiovascular:: without murmur or gallop (irregularly irregular rhythm.), Pulses 2+ all extremities, capillary refill, <2 seconds all extremities Abdomen:: Bowel sounds positive, soft, non-tender, non-distended, no hepatosplenomegaly, masses or bruits noted Lymphatic:: No lymphadenopathy, or lymphedema noted Musculoskeletal:: No tenderness, or deformity noted, good range of motion, all extremities Integumentary:: No rashes, hives, or bruising noted, hair and nails, without abnormality Neurological:: Patient is alert, and oriented, cranial nerves, motor/sensory/ cerebellar, exams w/o gross deficits, to observation Psychiatric:: Patient exhibits, appropriate attention, emotion and affect Course Vital Signs Temperature 97.7 F 06/04/17 14:10 Pulse Rate 116 H 06/04/17 14:10 Respiratory Rate 22 06/04/17 14:10 Blood Pressure 91/66 06/04/17 14:10 Pulse Oximetry 95 06/04/17 14:10 Temperature 96.4 F L 06/04/17 23:31 Pulse Rate 64 06/05/17 04:00 Respiratory Rate 16 06/05/17 04:00 Blood Pressure 118/64 06/05/17 04:00 Pulse Oximetry 96 06/05/17 04:00 Medical Decision Making - [facility] Narrative Medical decision making narrative: Labs/imaging were discussed in detail with the patient's primary care physician (Dr. 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 Hinojosa. Patient is admitted to the service of cardiology at the request of the primary care physician. Patient is noted to be in atrial fibrillation which she has a chronic history of ranging from 100 bpm up to occasionally 130 bpm and then back to 100 bpm. Patient does not stay consistently greater than 120 bpm in the emergency department. Patient is given Bumex 2 mg IV times one at the recommendation of cardiology. Patient has an aspirin ALLERGY that is severe so aspirin is unable to be given. 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 Patient and family are in agreement with the current plan of management. No further orders from cardiology who is in agreement with the current plan of management. - Differential Diagnosis AECHF, COPD, PNA, Metabolic profile - Lab Data Result diagrams: 06/05/17 03:58 06/05/17 03:58 Lab Results 06/04/17 06/04/17 Range/Units 14:54 14:54 WBC 6.9 (4.5-11.0) T/MM3 RBC 3.76 L (4.50-5.90) M/MM3 Hgb 11.1 L (13.5-17.5) GM/DL Hct 35.0 L (41-53) % MCV 93.1 (80-100) UM3 MCH 29.5 (26-34) UUG MCHC 31.7 (31-37) GM/DL RDW Std Deviation 54.9 H (36.9-50.2) FL Plt Count 136 (130-400) T/MM3 MPV 12.1 (9.4-12.4) UM3 Immature Gran % (Auto) 0.1 (0.0-0.5) % Neut % (Auto) 76.0 H (33-66) % Lymph % (Auto) 14.0 L (23-45) % [place] % (Auto) 8.9 (0-9.0) % Eos % (Auto) 0.9 (0-4) % Baso % (Auto) 0.1 (0-2) % Neut # (Auto) 5.2 (1.8-7.7) T/MM3 Lymph # (Auto) 1.0 (1-4.8) T/MM3 [place] # (Auto) 0.6 (0-0.8) T/MM3 Eos # (Auto) 0.1 (0-0.5) T/MM3 Baso # (Auto) 0.0 (0-0.2) T/MM3 Abs Immat Gran (auto) 0.01 (0.00-0.03) T/MM3 Turbidity < 20 (0-20) Sodium 144 (134-144) MEQ/L Potassium 4.6 (3.6-5) MEQ/L Chloride 102 (98-107) MEQ/L Carbon Dioxide 28 (22-30) MEQ/L Anion Gap 14 (5-15) MEQ/L BUN 31.0 H (9-20) MG/DL Creatinine 1.5 (0.8-1.5) MG/DL GFR Calculation 45 BUN/Creatinine Ratio 21 (6-26) RATIO Glucose 304 H (75-110) MG/DL Calculated Osmolality 295 H (261-280) MOSM/KG Calcium 8.7 (8.4-10.2) MG/DL Total Bilirubin 1.20 (0.20-1.30) MG/DL Icterus Index < 2 (0-7) AST 35 (17-59) U/L ALT 35 (21-72) U/L Alkaline Phosphatase 120 (38-126) U/L Troponin I < 0.012 (0-0.12) ng/ml B-Natriuretic Peptide 98172 H (0-175) pg/mL Total Protein 6.5 (6.3-8.2) G/DL Albumin 3.3 L (3.5-5.0) G/DL Globulin 3.2 (2.4-3.6) G/DL Albumin/Globulin Ratio 1.0 L (1.1-2.2) RATIO Specimen Hemolysis < 15 (0-25) - Radiology Data CXR - Increasing pulmonary congestion otherwise no acute processes. - EKG Data EKG #1 EKG results narrative: Atrial fibrillation. 113 bpm. No STEMI. 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 Hinojosa. Disposition Clinical Impression: Congestive heart failure Qualifiers: Congestive heart failure type: unspecified congestive heart failure type Congestive heart failure chronicity: acute on chronic Qualified Code(s): I50.9 - Heart failure, unspecified Disposition: To [facility] [place] Acute Care Condition: Stable for Transport Time of Disposition: 16:10 (Admit. Dr. Hinojosa. ) - Seen By: physician
--- NOTE | 2017-06-04 15:51 | XRay Report ---
EXAM: XR chest 1V 1503 hours COMPARISON: None available. HISTORY: afib . FINDINGS: The heart is enlarged. The pulmonary vascularity is prominent and indistinct. There is increased perihilar interstitial markings. There is no evidence for pleural effusion. There is no evidence for a pneumothorax. No osseous abnormalities are identified. Pacemaker and pacer wire is stable. IMPRESSION: Cardiomegaly with mild pulmonary vascular congestive changes. NOTE: The results were discussed with the ordering clinician, Ramiro Wall DO soon after the exam was performed on the day of the exam. LOCATION OF DICTATION: [facility] [place]
[2017-06-04] MEDS ORDERED: BUMETANIDE 2.5mg/10ml INJECTION IVP ONE (15:54)
--- NOTE | 2017-06-04 16:55 | Cardiology History & Physical ---
History of Present Illness Chief complaint: SOA HPI: Mr. Aviles is a 76-year-old gentleman who is well known to Dr. Hinojosa who has a history of cardiomyopathy with EF of 30% or less, CAD, Atrial fibrillation and frequent PVCs, valvular disease, HTN, HLD< and DM. He presented to the ED with chief complaint of shortness of air, increased palpitations and low BP per nurse. Upon exam he admits that he has been drinking a lot of soda and eating a lot of ice cream. He denies chest pain or pressure, denies feeling his heart racing or skipping beats. He has dyspnea on exertion and bilateral LE edema. He denies recent illness, fever chills, sore throat, cough, N/V/D. Review of Systems - Constitutional Constitutional: Present: weight gain. Absent: chills, fever(s) - EENMT Eyes: Absent: change in vision Balance: Absent: vertigo Mouth/Throat: Absent: sore throat - Cardiovascular Cardiovascular: Present: dyspnea on exertion, edema. Absent: chest pain, palpitations, syncope Rhythm: Present: abnormal rhythm Vascular: Present: pedal edema - Respiratory Respiratory: Present: dyspnea. Absent: cough - Gastrointestinal Gastrointestinal: Absent: abdominal pain, diarrhea, nausea, vomiting - Genitourinary Genitourinary: Absent: dysuria - Neurological Neurological: Absent: dizziness - Endocrine Endocrine: Absent: palpitations PFSH Patient Stated Medical History Dementia Yes Migraine Yes Peripheral Neuropathy Yes Parkinson's Disease Yes Cataracts Yes Dental Problems Yes: HAS DENTURES Hearing Loss Yes Other HEENT Yes: WEARS GLASSES Angina Yes Cardiac Arrhythmia Yes: AFIB,PVC,V-TACH Congestive Heart Failure Yes Coronary Artery Disease Yes Hypertension Yes Myocardial Infarction No Rheumatic Fever Yes Valvular Heart Disease Yes Asthma Yes Chronic Obstructive Pulmonary Yes Disease (COPD) Pneumonia Yes Sleep Apnea Yes Diabetes Mellitus Type 2 Yes Gastroesophageal Reflux Yes Disease Hiatal Hernia Yes Hx Benign Prostatic Yes Hyperplasia Hx Incontinence Yes Hx Urinary Tract Infection Yes Other Yes: PROSTATE CA Anemia Yes Osteoarthritis Yes Other Musculoskeletal Yes: RLS Shingles Yes Other Infectious Yes: UNKNOWN LUNG INFECTION Blood Transfusions Yes: NO PROBLEMS Other Yes: RADATION Depression Yes Surgical History: exploratory laproscopy. vasectomy. TURP. hernia repair Family History: Mother had mental illness, alcoholism. Father had high blood pressure, diabetes and dyslipidemia. - Social History Smoking status: Former smoker Substance use type: does not use Alcohol intake frequency: former alcohol drinker Housing: house Household members: spouse Current occupational status: disabled Current residence: Apartment/Private Home Medications Home Medications Medication Instructions Recorded Confirmed Type Albuterol Sulfate [Proair Hfa] 2 puff IH Q6H PRN #0 01/09/14 06/04/17 History B-Complex with Vitamin C [Super B 1 tab PO BID #0 11/02/15 06/04/17 History Complex-Vitamin C] Gabapentin 600 mg PO HS #0 11/02/15 06/04/17 History Ropinirole HCl 2 mg PO TID #0 11/02/15 06/04/17 History Carbidopa/Levodopa [Sinemet 25-100 1 tab PO TID #0 tab 01/06/17 06/04/17 History mg Tablet] Celecoxib [Celebrex] 200 mg PO HS #0 cap 01/06/17 06/04/17 History Silver Sulfadiazine [Silvadene] 1 applic TOP PRN #0 01/06/17 06/04/17 History Tramadol HCl 50 mg PO Q6HR PRN #0 tab 01/06/17 06/04/17 History Potassium Chloride 20 meq PO BIDWM #0 01/17/17 06/04/17 History Acetaminophen [Arthritis Pain 2 tab PO PRN PRN 03/28/17 06/04/17 History Relief] Metformin [Glucophage] 500 mg PO BIDWM 04/30/17 06/04/17 History Albuterol Neb (0.083%) [Proventil 2.5 mg AEROSOL PRN PRN 05/25/17 06/04/17 History Neb (0.083%)] SACUBITRIL/VALSARTAN 49/51mg 1 tab PO DAILY 05/25/17 06/04/17 History [ENTRESTO 49/51mg] Carvedilol 25 mg PO BID 06/04/17 06/04/17 History Allergies Allergy/AdvReac Type Severity Reaction Status Date / Time prednisone Allergy Unknown ANXIOUS Verified 05/25/17 12:54 Corticosteroids Allergy Verified 05/25/17 13:12 (Glucocorticoids) Quinolones Allergy Verified 05/25/17 13:12 tetracycline Allergy Verified 05/25/17 13:12 dicyclomine AdvReac Severe "MAKES ME Verified 05/25/17 12:54 VERY NERVOUS AND JITTERY" aspirin AdvReac Unknown CAUSES GI Verified 05/25/17 12:54 BLEEDING ciprofloxacin AdvReac Unknown HYPERACTIVE Verified 05/25/17 12:54 Exam Vital signs: Temperature 97.7 F 06/04/17 14:10 Pulse Rate 134 H 06/04/17 16:13 Respiratory Rate 20 06/04/17 16:13 Blood Pressure 100/82 06/04/17 16:13 Pulse Oximetry 96 06/04/17 16:13 - Constitutional mild distress, well developed, cooperative - Routine HEENT Exam Head: Present: normocephalic ENT: Present: mucous membranes moist - Routine Neck Exam Present: JVD. Absent: carotid bruit - Routine Chest/Breast/Axilla Exam Chest wall: Present: pacemaker. Absent: tenderness - Routine Respiratory Exam Present: rales (bibasilar). Absent: CTA bilaterally, crackles - Routine Cardiovascular Exam Present: tachycardia, irregular rhythm - Routine Abdominal Exam Present: soft, normoactive bowel sounds - Routine Extremities Exam Present: edema - Routine Skin Exam Present: intact, dry, warm - Routine Neurological Exam Present: alert, oriented X3 - Routine Psychiatric Exam Present: normal affect, normal thought process Results 06/07/17 04:02 06/07/17 04:02 Cardiac Enzymes 06/04/17 Range/Units 14:54 AST 35 (17-59) U/L Troponin I < 0.012 (0-0.12) ng/ml B-Natriuretic Peptide 20785 H (0-175) pg/mL Coagulation 06/04/17 Range/Units 14:54 B-Natriuretic Peptide 60529 H (0-175) pg/mL CBC 06/04/17 Range/Units 14:54 WBC 6.9 (4.5-11.0) T/MM3 RBC 3.76 L (4.50-5.90) M/MM3 Hgb 11.1 L (13.5-17.5) GM/DL Hct 35.0 L (41-53) % Plt Count 136 (130-400) T/MM3 Neut # (Auto) 5.2 (1.8-7.7) T/MM3 Lymph # (Auto) 1.0 (1-4.8) T/MM3 [place] # (Auto) 0.6 (0-0.8) T/MM3 Eos # (Auto) 0.1 (0-0.5) T/MM3 Baso # (Auto) 0.0 (0-0.2) T/MM3 Comprehensive Metabolic Panel 06/04/17 Range/Units 14:54 Sodium 144 (134-144) MEQ/L Potassium 4.6 (3.6-5) MEQ/L Chloride 102 (98-107) MEQ/L Carbon Dioxide 28 (22-30) MEQ/L BUN 31.0 H (9-20) MG/DL Creatinine 1.5 (0.8-1.5) MG/DL Glucose 304 H (75-110) MG/DL Calcium 8.7 (8.4-10.2) MG/DL AST 35 (17-59) U/L ALT 35 (21-72) U/L Alkaline Phosphatase 120 (38-126) U/L Total Protein 6.5 (6.3-8.2) G/DL Albumin 3.3 L (3.5-5.0) G/DL Intake and Output 06/04/17 06/04/17 06/04/17 06:59 14:59 22:59 Other: Weight 168 lb 10.458 oz Patient Weight 06/05/17 06:59 Weight 168 lb 10.458 oz Laboratory Results - last 24 hr 06/04/17 06/04/17 14:54 14:54 WBC 6.9 RBC 3.76 L Hgb 11.1 L Hct 35.0 L MCV 93.1 MCH 29.5 MCHC 31.7 RDW Std Deviation 54.9 H Plt Count 136 MPV 12.1 Immature Gran % (Auto) 0.1 Neut % (Auto) 76.0 H Lymph % (Auto) 14.0 L [place] % (Auto) 8.9 Eos % (Auto) 0.9 Baso % (Auto) 0.1 Neut # (Auto) 5.2 Lymph # (Auto) 1.0 [place] # (Auto) 0.6 Eos # (Auto) 0.1 Baso # (Auto) 0.0 Abs Immat Gran (auto) 0.01 Turbidity < 20 Sodium 144 Potassium 4.6 Chloride 102 Carbon Dioxide 28 Anion Gap 14 BUN 31.0 H Creatinine 1.5 GFR Calculation 45 BUN/Creatinine Ratio 21 Glucose 304 H Calculated Osmolality 295 H Calcium 8.7 Total Bilirubin 1.20 Icterus Index < 2 AST 35 ALT 35 Alkaline Phosphatase 120 Troponin I < 0.012 B-Natriuretic Peptide 95145 H Total Protein 6.5 Albumin 3.3 L Globulin 3.2 Albumin/Globulin Ratio 1.0 L Specimen Hemolysis < 15 - Imaging and Cardiology Imaging & Cardiology Narrative: Date of Exam: 06/04/17 Ordering Provider: Ramiro Wall DO Type of Exam(s): XR chest 1V Reason for Exam(s): afib EXAM: XR chest 1V 1503 hours COMPARISON: None available. HISTORY: afib . FINDINGS: The heart is enlarged. The pulmonary vascularity is prominent and indistinct. There is increased perihilar interstitial markings. There is no evidence for pleural effusion. There is no evidence for a pneumothorax. No osseous abnormalities are identified. Pacemaker and pacer wire is stable. IMPRESSION: Cardiomegaly with mild pulmonary vascular congestive changes. NOTE: The results were discussed with the ordering clinician, Ramiro Wall DO soon after the exam was performed on the day of the exam. LOCATION OF DICTATION: [facility] [place] 06/04/17 19:01 EKG interpretations - EKG EKG shows: atrial fibrillation (with RVR) - Blocks, axis, hypertrophy, ST abn AV and intraventricular conduction: right bundle branch block (fixed/ intermittent, complete/incomplete) Hospital Course This is a general summary of the patient's hospital course. For more details refer to the complete medical record. Hospital course: Acute on chronic systolic HF: Admit to Medical for diuresis - Bumex 2mg IVP then Bumex drip 1mg/hr - Potassium 40meq TID with meals - Monitor renal and electrolytes AFib RVR - Give Digoxin 500mcg IV x1, 250mcg in 6 hours - Cardizem 180mg po daily - TSH and Mag Time spent with patient: 25 - 35 minutes Assessment and Plan - Attestation Attestation Narrative: 06/08/17 15:36 Recommendation After examining the patient I agree with the above assessment. I am involved in the formulation of the patient's plan of care. - Assessment and Plan (1) Acute on chronic systolic (congestive) heart failure Status: Acute Admit to Medical for diuresis - Bumex 2mg IVP then Bumex drip 1mg/hr - Potassium 40meq TID with meals - Monitor renal and electrolytes (2) Paroxysmal atrial fibrillation Status: Chronic AFib RVR - Give Digoxin 500mcg IV x1, 250mcg in 6 hours - Cardizem 180mg po daily - TSH and Mag (3) Essential (primary) hypertension Status: Chronic (4) Mixed hyperlipidemia Status: Chronic (5) Type 2 diabetes mellitus without complications Status: Chronic (6) Cardiomyopathy Status: Chronic (7) Atherosclerotic heart disease of [place] coronary artery without angina pectoris Status: Chronic (8) ICD (implantable cardioverter-defibrillator) in place Status: Acute [employer] ICD inserted 05/01/17
[2017-06-04] MEDS ORDERED: DIGOXIN 500 MCG/2 ML INJECTION IVP ONE (17:35)
[2017-06-04] MEDS ORDERED: BUMETANIDE DRIP 25 MG in RTU-SALINE 100 ML IV SCH (17:35)
[2017-06-04] MEDS ORDERED: ALBUTEROL 2.5mg/3ml (0.083%) NEB AEROSOL PRN (19:15)
[2017-06-04] MEDS ORDERED: TRAMADOL 50 MG TABLET PO PRN (19:15)
[2017-06-04] MEDS: SALINE FLUSH 10ml SYRINGE IV PRN (20:21)
[2017-06-04] MEDS: NS 1,000 ML IV SCH (20:33)
[2017-06-04] MEDS ORDERED: CELECOXIB 200 MG PO SCH (21:00)
[2017-06-04] MEDS ORDERED: CARVEDILOL 25 MG TABLET PO SCH (21:00)
[2017-06-04] MEDS: GABAPENTIN 300 MG CAP - PT OWN PO SCH (21:43)
[2017-06-04] MEDS: ROPINIROLE 2 MG PO SCH (21:43)
[2017-06-04] MEDS: VITAMIN B COMPLEX + C TABLET PO SCH (21:44)
[2017-06-04] MEDS ORDERED: CARVEDILOL 6.25 MG TABLET PO ONE (22:45)
[2017-06-05] MEDS ORDERED: DIGOXIN 500 MCG/2 ML INJECTION IVP ONE (01:00)
[2017-06-05] MEDS: SALINE FLUSH 10ml SYRINGE IV PRN ×2 (01:44→22:00)
[2017-06-05] MEDS: LEVODOPA PO SCH ×3 (06:40→20:24)
[2017-06-05] MEDS: CARBIDOPA PO SCH ×3 (06:40→20:24)
[2017-06-05] MEDS: METFORMIN 500 MG TAB - PT OWN PO SCH ×2 (09:40→18:36)
[2017-06-05] MEDS: ROPINIROLE 2 MG PO SCH ×3 (09:41→21:48)
[2017-06-05] MEDS: SACUBITRIL PO SCH (09:42)
[2017-06-05] MEDS: VALSARTAN PO SCH (09:42)
[2017-06-05] MEDS: VITAMIN B COMPLEX + C TABLET PO SCH ×2 (09:45→21:47)
[2017-06-05] MEDS: ENOXAPARIN 40 MG/0.4 ML INJECTION SQ SCH (12:28)
[2017-06-05 15:01] VITALS: BMI 26.4
--- NOTE | 2017-06-05 15:34 | Cardiology Progress Note ---
Subjective Principal diagnosis: systolic heart failure <Rhonda Adames - 06/05/17 15:35> Interval history: Almas is seen in follow up for CHF. He says he is breathing more easily. He denies chest pain or pressure, denies palpitations. <Rhonda Adames - 06/06/17 16:27> Exam Vital signs: Temperature 96.2 F L 06/07/17 15:01 Pulse Rate 70 06/07/17 15:17 Respiratory Rate 20 06/07/17 15:01 Blood Pressure 83/52 06/07/17 15:17 Pulse Oximetry 92 06/07/17 15:01 <Jonathan Hinojosa - 06/08/17 15:41> Temperature 96.8 F 06/05/17 12:00 Pulse Rate 76 06/05/17 12:00 Respiratory Rate 20 06/05/17 12:00 Blood Pressure 107/61 06/05/17 12:00 Pulse Oximetry 91 06/05/17 12:00 <Rhonda Adames - 06/05/17 15:35> - Constitutional no acute distress, well nourished, cooperative <Rhonda Adames [place] 06/05/17 15: 35> - Routine HEENT Exam Head: Present: normocephalic <Rhonda Adames 06/05/17 15:35> ENT: Present: mucous membranes moist <Rhonda Adames 06/05/17 15:35> - Routine Neck Exam Absent: JVD, carotid bruit <RosangelaRhonda Momin 06/05/17 16:04> - Routine Chest/Breast/Axilla Exam Chest wall: Absent: tenderness <Rhonda Adames 06/05/17 15:35> - Routine Respiratory Exam Present: rales (bibasilar), diminished air movement. Absent: CTA bilaterally, wheezes <RosangelaRhonda [place] 06/05/17 16:04> - Routine Cardiovascular Exam Present: murmur, irregular rhythm. Absent: JVD <RosangelaRhonda Momin 06/05/17 16: 04> - Routine Abdominal Exam Present: soft, normoactive bowel sounds <RosangelaRhonda Momin 06/05/17 15:35> - Routine Extremities Exam Present: no edema <RosangelaRhonda singh M - 06/05/17 16:04> - Routine Skin Exam Present: intact, dry, warm <Rhonda Adames M - 06/05/17 15:35> - Routine Neurological Exam Present: alert, oriented X3 <Rhonda Adames M - 06/05/17 15:35> - Routine Psychiatric Exam Present: normal affect, normal thought process <Rhonda Adames M - 06/05/17 15: 35> - Additional findings Additional findings: Laboratory Results - last 24 hr 06/05/17 06/05/17 03:58 03:58 WBC 9.2 RBC 3.93 L Hgb 11.5 L Hct 36.7 L MCV 93.4 MCH 29.3 MCHC 31.3 RDW Std Deviation 55.0 H Plt Count 138 MPV 11.7 Turbidity < 20 Sodium 147 H Potassium 4.1 Chloride 100 Carbon Dioxide 36 H Anion Gap 11 BUN 31.0 H Creatinine 1.4 GFR Calculation 49 BUN/Creatinine Ratio 22 Glucose 104 Calculated Osmolality 289 H Calcium 8.6 Magnesium 1.8 Icterus Index < 2 Specimen Hemolysis < 15 Acetaminophen (Tylenol Arthritis) 1,300 mg PO Q8H PRN PRN Reason: Pain Albuterol Sulfate (Ventolin Hfa) 2 puff INH Q6H PRN PRN Reason: Shortness of air Albuterol Sulfate (Proventil Neb (0.083%)) 2.5 mg AEROSOL PRN PRN PRN Reason: Shortness of air Carbidopa/Levodopa (Sinemet) 1 tab PO TID/E [facility] Last Admin: 06/05/17 14:21 Dose: 1 tab Celecoxib (Celebrex) 200 mg PO HS [facility] Last Admin: 06/04/17 21:43 Dose: 200 mg Enoxaparin Sodium (Lovenox) 40 mg SQ DAILY [facility] Last Admin: 06/05/17 12:28 Dose: 40 mg Gabapentin (Neurontin) 600 mg PO HS [facility] Last Admin: 06/04/17 21:43 Dose: 600 mg Bumetanide 25 mg/ Sodium (Chloride) 100 mls @ 4 mls/hr IV .Q24H [facility] Last Infusion: 06/05/17 06:00 Dose: 4 mls/hr Sodium Chloride (Normal Saline) 1,000 mls @ 20 mls/hr IV .Q24H [facility] Last Infusion: 06/05/17 06:00 Dose: 20 mls/hr Metformin HCl (Glucophage) 500 mg PO BIDWM [facility] Last Admin: 06/05/17 09:40 Dose: 500 mg Multivitamins (Total B + C) 1 tab PO BID [facility] Last Admin: 06/05/17 09:45 Dose: 1 tab Potassium Chloride (K-Dur) 40 meq PO TIDWM [facility] Last Admin: 06/05/17 12:28 Dose: 40 meq Ropinirole HCl (Requip) 2 mg PO TID [facility] Last Admin: 06/05/17 14:22 Dose: 2 mg Sacubitril/Valsartan (Entresto 49/51mg) 1 tab PO DAILY [facility] Last Admin: 06/05/17 09:42 Dose: 1 tab Sodium Chloride (Iv Flush) 10 - 80 ml IV PRN PRN PRN Reason: Flushing Last Admin: 06/05/17 01:44 Dose: 10 ml Tramadol HCl (Ultram) 50 mg PO Q6HR PRN PRN Reason: P <Rhonda Adames - 06/05/17 15:35> Assessment and Plan - Assessment and Plan (1) Acute on chronic systolic (congestive) heart failure Status: Acute (2) Paroxysmal atrial fibrillation Status: Chronic (3) Essential (primary) hypertension Status: Chronic (4) Mixed hyperlipidemia Status: Chronic (5) Type 2 diabetes mellitus without complications Status: Chronic (6) Cardiomyopathy Status: Chronic (7) Atherosclerotic heart disease of [place] coronary artery without angina pectoris Status: Chronic (8) ICD (implantable cardioverter-defibrillator) in place Status: Acute <Jonathan Hinojosa - 06/08/17 15:41> (1) Acute on chronic systolic (congestive) heart failure Status: Acute Change Bumex drip to Bumex 2mg IV Q8H repeat BMP and Mag in AM (2) Paroxysmal atrial fibrillation Status: Chronic Coreg 25mg po BID for better rate control. Cardizem 180mg po daily, start in am (3) Essential (primary) hypertension Status: Chronic (4) Mixed hyperlipidemia Status: Chronic (5) Type 2 diabetes mellitus without complications Status: Chronic (6) Cardiomyopathy Status: Chronic (7) Atherosclerotic heart disease of [place] coronary artery without angina pectoris Status: Chronic (8) ICD (implantable cardioverter-defibrillator) in place Status: Acute <Rhonda Adames - 06/06/17 16:25> - Attestation Attestation Narrative: 06/08/17 15:41 Recommendation After examining the patient I agree with the above assessment. I am involved in the formulation of the patient's plan of care. <Jonathan Hinojosa - 06/08/17 15:41> Hospital Course Summary Disclaimer: The visit summary below is not to be considered part of the above Progress Note. <Jonathan Hinojosa - 06/08/17 15:41> The visit summary below is not to be considered part of the above Progress Note. <Rhonda Adames - 06/05/17 15:35> Hospital Course: Acute on chronic systolic HF: Admit to Medical for diuresis - Bumex 2mg IVP then Bumex drip 1mg/hr - Potassium 40meq TID with meals - Monitor renal and electrolytes AFib RVR - Give Digoxin 500mcg IV x1, 250mcg in 6 hours - Cardizem 180mg po daily - TSH and Mag 06/05/17 16:03 Change Bumex drip to Bumex 2mg IV Q8H repeat BMP and Mag in AM Coreg 25mg po BID for better rate control. Cardizem 180mg po daily, start in am <Rhonda Adames - 06/06/17 16:27>
[2017-06-05] MEDS ORDERED: GLUCOSE ORAL GEL 40% 37.5gm PO PRN (17:45)
[2017-06-05] MEDS ORDERED: DEXTROSE 50% SYRINGE 50ml (1 AMP) IVP PRN (17:45)
[2017-06-05] MEDS: CARVEDILOL 25 MG TABLET PO SCH (18:36)
[2017-06-05] MEDS: INSULIN ASPART 100unit/ml INJECTION SQ PRN (21:48)
[2017-06-05] MEDS: GABAPENTIN 300 MG CAP - PT OWN PO SCH (21:48)
[2017-06-05] MEDS ORDERED: ACETAMINOPHEN 325 MG TABLET PO PRN (22:26)
--- NOTE | 2017-06-05 22:39 | Consult Note ---
Consult Information - Data of Consult Consult date: 06/05/17 Requesting Physician: Jonathan Hinojosa MD Primary Care Provider: Shawn Smith DO Family Provider: Shawn Smith DO - Consult Narrative Reason for consult: type 2 diabetes and general medical management. History of present illness: patient is a pleasant 76yo male with several medical comorbidities including T2DM, systolic congestive heart failure as well as atrial fibrillation among others. he was in his usual states of health about 1 to 2 weeks ago he says. he has been drinking a lot of pop and there are conflicting stories on what what his sodium intake has been. at that time he notes increasing SOA which initially started on exertion and eventually became a problem even at rest. he was seen in the ER were he was noted to by in atrial fibrillation with RVR, with a BNP near 33,000 and fluid overloaded. he was admitted to Dr. 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 patient was initially started on a bumex drip and it appears he was given some digoxin and other rate control meds. it appears that since then he has diuresed well and his HR is under better control. in speaking with the patient today he notes he is feeling much better and his breathing has improved. vitals have otherwise been stable. Dr. Hinojosa has consulted us to help with type 2 diabetes and other medical management. right now patient is stable and overall feeling better than he has in over a week. patient denies fevers, chills, body aches, stroke symptoms, synocpe, dizziness, falls, trauma, URI symptoms, ear pain, sinus pain, sore throat, URI symptoms, headaches, focal neurologic deficits, seizure symptoms, chest pain. see above for explaination of his SOA. no chest pain on rest or exertion. he denies orthopnea and PND at any time. no new edema he says and no new leg asymmetry. no skin changes or new rashes. no palpitations, cough, sputum production, hemoptysis. he hasn't felt systemically unwell with this. no abdominal pain, GERD symptoms, nausea, vomiting, hematemesis, coffee ground emesis, GI warning symptoms. no diarrhea, bloody/black stools, dysuria, hematuria. no unexpected urinary frequency. no flank pain, nocturia. no new urinary or bowel incontinance. no urinary issues or changes otherwise. no mood changes, altered mentation, psychotic symptoms, manic symptoms. hasn't felt depressed per patient. no homicidal/suicidal ideations. see above and below for further ROS. PFSH -systolic congestive heart failure -atrial fibrillation -T2DM -COPD -osteoarthritis -neuropathy -restless leg syndrome -personal history of prostate cancer. -sleep apnea -history of alcoholism remotely -migraine headache Surgical History: exploratory laproscopy. vasectomy. TURP. hernia repair. several orthopedic surgeries. cardiac catheterizations. cataract surgery. prostate surgery. hernia surgeries. colonoscopies and EGD's. tooth extractions Family History: -father had T2DM and HTN -mother had T2DM, HTN. - Social History Smoking status: Former smoker Current residence: Apartment/Private Home Social history: -lives at home with -former smoker but still does chew tobacco -denies illicit drug use -remote history of alcoholism but no alcohol intake in years Review of Systems - Constitutional Constitutional: Present: as per HPI. Absent: weight loss (no unintentional weight loss. ) - EENMT Eyes: Present: as per HPI. Absent: change in vision, loss of vision, photophobia Balance: Absent: vertigo Mouth/Throat: Present: as per HPI. Absent: sore throat - Cardiovascular Cardiovascular: Present: dyspnea on exertion (but improving. ), as per HPI. Absent: chest pain, palpitations, syncope, orthopnea Rhythm: Present: abnormal rhythm Vascular: Present: see HPI, pedal edema (had some symmetrical b/l pedal edema on admission and this is gone per patient. ). Absent: unilateral swelling - Respiratory Respiratory: Present: as per HPI, dyspnea (see above.), dyspnea on exertion ( see above.). Absent: cough, hemoptysis, wheezing, pain on inspiration, chest congestion, excessive phlegm production - Gastrointestinal Gastrointestinal: Present: as per HPI. Absent: abdominal pain, change in bowel habits, change in stool character, coffee ground emesis, constipation, diarrhea , dyspepsia, dysphagia, early satiety, hematemesis, hematochezia, melena, nausea , odynophagia, vomiting Gastrointestinal Comments: see above HPI. patient states he's had X1 normal BM since being admitted yesterday. - Genitourinary Genitourinary: Present: as per HPI. Absent: dysuria - Musculoskeletal Musculoskeletal: Present: as per HPI. Absent: arthralgias, joint swelling, neck pain Musculoskeletal Comments: no photophobia or meningeal type symptoms. - Integumentary/Breasts Integumentary: Present: as per HPI Integumentary Comments: no new skin changes or rashes. - Neurological Neurological: Present: as per HPI - Psychiatric Psychiatric: Present: as per HPI - Endocrine Endocrine: Present: as per HPI (no thyroid symptoms. ) - Hematologic/Lymphatic Hematologic/Lymphatic: Present: as per HPI Hematologic/Lymphatic Comments: no abnormal bleeding. - Allergic/Immunologic Allergic/Immunologic: Present: as per HPI (see above for allergies and ADR's. ) Medications Home Medications Medication Instructions Recorded Confirmed Type Albuterol Sulfate [Proair Hfa] 2 puff IH Q6H PRN #0 01/09/14 06/04/17 History B-Complex with Vitamin C [Super B 1 tab PO BID #0 11/02/15 06/04/17 History Complex-Vitamin C] Gabapentin 600 mg PO HS #0 11/02/15 06/04/17 History Ropinirole HCl 2 mg PO TID #0 11/02/15 06/04/17 History Carbidopa/Levodopa [Sinemet 25-100 1 tab PO TID #0 tab 01/06/17 06/04/17 History mg Tablet] Celecoxib [Celebrex] 200 mg PO HS #0 cap 01/06/17 06/04/17 History Silver Sulfadiazine [Silvadene] 1 applic TOP PRN #0 01/06/17 06/04/17 History Tramadol HCl 50 mg PO Q6HR PRN #0 tab 01/06/17 06/04/17 History Potassium Chloride 20 meq PO BIDWM #0 01/17/17 06/04/17 History Acetaminophen [Arthritis Pain 2 tab PO PRN PRN 03/28/17 06/04/17 History Relief] Bumetanide Tab [Bumex Tab] 1 mg PO BID 04/30/17 06/04/17 History Metformin [Glucophage] 500 mg PO BIDWM 04/30/17 06/04/17 History Albuterol Neb (0.083%) [Proventil 2.5 mg AEROSOL PRN PRN 05/25/17 06/04/17 History Neb (0.083%)] SACUBITRIL/VALSARTAN 49/51mg 1 tab PO DAILY 05/25/17 06/04/17 History [ENTRESTO 49/51mg] Carvedilol 25 mg PO BID 06/04/17 06/04/17 History Allergies Allergy/AdvReac Type Severity Reaction Status Date / Time prednisone Allergy Unknown ANXIOUS Verified 05/25/17 12:54 Corticosteroids Allergy Verified 05/25/17 13:12 (Glucocorticoids) Quinolones Allergy Verified 05/25/17 13:12 tetracycline Allergy Verified 05/25/17 13:12 dicyclomine AdvReac Severe "MAKES ME Verified 05/25/17 12:54 VERY NERVOUS AND JITTERY" aspirin AdvReac Unknown CAUSES GI Verified 05/25/17 12:54 BLEEDING ciprofloxacin AdvReac Unknown HYPERACTIVE Verified 05/25/17 12:54 Exam Vital Signs: Temperature 95.1 F L 06/05/17 15:42 Pulse Rate 68 06/05/17 21:11 Respiratory Rate 20 06/05/17 21:11 Blood Pressure 108/65 06/05/17 15:42 Pulse Oximetry 96 06/05/17 21:11 Telemetry Rhythm: A-fib - Constitutional Present: no acute distress, cooperative. Absent: cachectic, diaphoretic, disheveled, combative, agitated, somnolent, obtunded - Routine HEENT Exam Head: Present: normocephalic, atraumatic ENT: Present: mucous membranes moist - Routine Neck Exam Present: supple, full ROM (grossly. ), trachea midline. Absent: JVD, lymphadenopathy, thyromegaly, tenderness, swelling, tracheal deviation, trauma, meningismus Comments: no photophobia or clinical evidence of meningitis at this time. - Routine Chest/Breast/Axilla Exam Comments: no chest wall tenderness at this time. - Routine Respiratory Exam Present: crackles. Absent: accessory muscle use, patient mechanically ventilated, dyspnea, decreased breath sounds, CTA bilaterally (faint bibasilar crackles b/l at this time. ), prolonged expiratory phase, rales, respiratory distress, rhonchi, stridor, wheezes, distant breath sounds, diminished air movement Comments: lung sounds heard in all lung bearden b/l at this time. - Routine Cardiovascular Exam Comments: irreg/irreg right now. rate normal. otherwise unchanged from previous. no LE edema bilaterally at this time. extremities warm and clinically well perfused in all 4 extremities b/l at this time. pulses normal X4 extremities. legs symmetrical and compartments soft b/l in LE's at this time. - Routine Abdominal Exam Present: soft (X4.), normoactive bowel sounds (X4.), non distended, non tender. Absent: tenderness (X4.), distended (X4.), rebound, guarding, firm, rigid, organomegaly, mass Comments: no ascites or jaundice. - Routine Exam Comments: no tenderness over bladder area. - Routine Extremities Exam Absent: joint swelling, extremity cold to touch Comments: see above. - Routine Skin Exam Present: intact Comments: no new rashes or changes to uncovered areas. - Routine Neurological Exam Present: alert, oriented X3 no focal deficits grossly at this time. no clinical evidence of encephalopathy , delerium, james, psychosis, depression, anxiety, altered mentation/sensorum at the current visit. - Routine Psychiatric Exam Present: normal affect, normal thought process, cooperative, good judgment. Absent: suicidal ideation, homicidal ideation, auditory hallucinations, visual hallucinations, tactile hallucinations, depressed, anxious, agitated, paranoid, manic Comments: see above. Results - Labs CBC & Chem 7: 06/05/17 03:58 06/05/17 03:58 Assessment and Plan DVT Prophylaxis: Lovenox GI Prophylaxis: other (PO diet supplied by cardiology.) Resuscitation Status: Full Code Assessment and Plan: acute on chronic systolic congestive heart failure atrial fibrillation with RVR T2DM obstructive sleep apnea HTN chronic multifactorial anemia osteoarthritis chronic kidney disease COPD -continue admission orders, telemetry, I's and O's, cardiac diet and other admission order as per cardiology who is primary. -cardiology managing bumex drip/IV and conversion to PO, potassium scheduled. they did give a digoxin load yesterday. they are starting cardizem PO on patient. it appears they plan on adding coreg shortly as well. -tsh unremarkable. mg's ok. bmp's with stable chronic kidney disease but otherwise unremarkable. will defer to cardiology as far as any further echocardiograms or other cardiovascular testing. will defer to Dr. Hinojosa any questions regarding whether rhythm control is needed here. I have added GLUBS, novolog s/s and hypoglycemia protocol. -d/c celebrex. decrease tylenol to 650mg [id number] prn. patient hasn't requred any tylenol while here so no indication for further workup with this. continue current multivitamin, metformin, entresto, albuterol nebulizer prn (home proair is on hold). continue home neurontin, tramadol. continue SQ lovenox per cardiology. defer any questions regarding anticoagulation to cardiology. sending not to nursing to see whether patient still on pradaxa at home as it's on our clinic list but not his med list here. we would only need to hold meformin if any imaging requiring contrast is done and we would only need to hold it afterwards for a couple of days. -restarted patient's home CPAP. -cbc, bmp, mg in AM per cardiology. -spoke with poision control briefly about the fact that patient taking 1300mg PO tylenol every 8 hours. patient doesn't take often and has been using for a long time. follow LFT's in the AM and no other indication for workup for tylenol toxicity. -otherwise patient stable and this time and any further chronic medical issues can be worked on as an outpatient. RLS -continue home requip and sinemet. all other chronic medical conditions stable and no other changes to plan of care at this time. ppx -Lovenox SQ as ordered by cardiology for DVT ppx. any further DVT ppx questions deferred to cardiology. -continue PO diet for GI ppx. -FULL CODE -dispo as per primary team. patient is improving. - Time spent with patient Time with patient PN: 35 minutes Sepsis Assessment - Evaluation Confirmed Suspected Infection: No
[2017-06-05] MEDS: NS 1,000 ML IV SCH (23:39)
[2017-06-06] MEDS: SALINE FLUSH 10ml SYRINGE IV PRN ×3 (06:19→09:12)
[2017-06-06] MEDS: CARBIDOPA PO SCH ×3 (06:19→21:37)
[2017-06-06] MEDS: LEVODOPA PO SCH ×3 (06:19→21:37)
[2017-06-06] MEDS: VITAMIN B COMPLEX + C TABLET PO SCH ×2 (09:11→21:36)
[2017-06-06] MEDS: ENOXAPARIN 40 MG/0.4 ML INJECTION SQ SCH (09:11)
[2017-06-06] MEDS: CARVEDILOL 25 MG TABLET PO SCH ×2 (09:12→18:54)
[2017-06-06] MEDS: METFORMIN 500 MG TAB - PT OWN PO SCH ×2 (09:12→18:40)
[2017-06-06] MEDS: VALSARTAN PO SCH (09:13)
[2017-06-06] MEDS: SACUBITRIL PO SCH (09:13)
[2017-06-06] MEDS: ROPINIROLE 2 MG PO SCH ×3 (09:14→21:37)
[2017-06-06] MEDS: BUMETANIDE 1 MG TABLET PO SCH ×2 (09:46→14:17)
[2017-06-06] MEDS: INSULIN ASPART 100unit/ml INJECTION SQ PRN ×2 (12:24→21:48)
--- NOTE | 2017-06-06 13:21 | Progress Note ---
Subjective: no acute issues overnight. patient started on the diltiazem and it and that, along with the brisk diuresis has dropped his blood pressures and slowed his heart rate some today. patient states he's a bit more groggy and irritable today and his concentration hasn't been very good secondary to this. he also noted some lightheadedness upon standing earlier today but not now he says. no other focal issues. patient denies headaches, photophobia, sinus pain, sore throat, ear pain. no vertigo. no cranial nerve symptoms. his weight is down significantly since discharge secondary to the diuresis. no confusion or wandering or altered mentation/sensorum. no chest pain, SOA. breathing back to baseline. no new cough. no sputum production. no fevers, chills, body aches. he denies fatigue, weakness. he denies feeling systemically unwell. no falls, trauma, injuries. no syncope or near-syncope. no focal neurologic deficits, seizure symptoms or agitation. no numbness/weakness/tingling anywhere. no vision changes. no visual field loss. no photophobia or meningeal symptoms. he's alert and oriented X3. no orthopnea or PND. no palpitations. no abdominal pain, nausea, vomiting, GERD symptoms, diarrhea, constipation, bloody/black stools. no dysuria, hematuria, urinary frequency, flank pain, nocturia, urinary/bowel incontinance. no skin changes, new rashes or skin/soft tissue infection areas of concern. no other mood changes. present for part of encounter today. no new issues otherwise at this time. Objective Vital signs: Temperature 97.0 F 06/06/17 11:53 Pulse Rate 71 06/06/17 11:53 Respiratory Rate 20 06/06/17 11:53 Blood Pressure 97/51 06/06/17 11:53 Pulse Oximetry 91 06/06/17 11:53 Rhythm: Atrial Fibrillation with Normal Ventricular Rate Height/Weight/BMI: Weight 66.9 kg - Constitutional Present: no acute distress, cooperative. Absent: diaphoretic, disheveled, combative, agitated, somnolent, obtunded Comments: concentration is mildly depleted from previous baseline. - Routine HEENT Exam Head: Present: normocephalic, atraumatic Eye: Present: EOMI, PERRL, normal accommodation. Absent: conjunctival icterus, scleral injection, conjunctivae pink, periorbital ecchymosis, periorbital swelling, periorbital tenderness, nystagmus, proptosis ENT: Present: mucous membranes dry (mildly dry. ), oropharynx clear - Routine Respiratory Exam Present: CTA bilaterally. Absent: accessory muscle use, patient mechanically ventilated, dyspnea, decreased breath sounds, prolonged expiratory phase, rales , respiratory distress, rhonchi, stridor, wheezes, crackles, distant breath sounds, diminished air movement Comments: lung sounds heard in all lung bearden b/l at this time. - Routine Cardiovascular Exam Comments: cardiac exam unchanged from previous. irreg/irreg. rate normal. no new murmurs. no LE edema bilaterally. legs symmetrical and compartment soft b/l in LE's at this time. clinically well perfused in all 4 extremities b/l at this time. - Routine Abdominal Exam Present: soft (X4.), normoactive bowel sounds (X4.), non distended (X4.), non tender (X4.). Absent: tenderness (X4.), distended (X4.), rebound, guarding, firm, rigid, organomegaly, mass Comments: no ascites or jaundice at this time. - Routine Exam Comments: no tenderness over bladder area. no clinical evidence of cystitis or pyelonephritis at this time. - Routine Extremities Exam Present: no edema. Absent: cyanosis, joint swelling, pallor, extremity cold to touch Comments: pulses stable from previous and patient's extremities are warm. clinically well perfused in all 4 extremities b/l at this time. - Routine Musculoskeletal Exam Musculoskeletal: Present: no joint swelling, no erythema, moving extremities well. Absent: joint erythera, joint swelling - Routine Skin Exam Present: intact Comments: no changes from previous to uncovered areas. - Routine Neurological Exam Present: alert, oriented X3 no changes from previous baseline. no focal deficits grossly. no nuchal rigidity or photophobia. no clinical evidence of meningioencephalitis at this time. - Routine Lymphatic Exam Lymphatic: Absent: lymphedema - Routine Psychiatric Exam Present: normal affect, normal thought process (except for mild decrease in concentration.), cooperative, good insight, good judgment. Absent: suicidal ideation, homicidal ideation, auditory hallucinations, visual hallucinations, tactile hallucinations, depressed, anxious, agitated, paranoid, manic Comments: no clinical evidence of delerium, psychosis, mental status changes. affect and cognition unchanged from previous baseline except as noted above. oriented to person, place. knows date down to week/month/year generally but had some trouble with the exact day. knew the president but just had trouble getting his name off his tongue. Results - Labs CBC & Chem 7: 06/06/17 03:54 06/06/17 03:54 Assessment and Plan DVT Prophylaxis: Lovenox GI Prophylaxis: other (PO diet.) Resuscitation Status: Full Code Assessment and Plan: acute on chronic systolic congestive heart failure acute mild hypotension and atrial fibrillation with bradycardia this AM from combination of diuresis and calcium channel dejah. atrial fibrillation with RVR T2DM obstructive sleep apnea contraction alkalosis HTN chronic multifactorial anemia osteoarthritis chronic kidney disease COPD -continue admission orders, telemetry, I's and O's, cardiac diet and other admission order as per cardiology who is primary. patient has no clinical evidence of systemic infection, adrenal disorder or other concerning cause of his hypotension and bradycardia beyond the coreg and bumex. he is mildly to moderately dry clinically. will talk with cardiology about starting some IV fluids but won't do this without their permission. patient's lungs are dry clinically and he's certainly no longer fluid overloaded. decreasing bumex should stop the contraction alkalosis as well. -cardiology has transitioned patient to PO bumex and his diuresis has slowed down. cardiology managing PO coreg, PO potassium, electrolyte (magnesium ) replacement as needed. cardiazem has been discontinued it appears which I agree with. -cbc's with chronic and stable multifactorial anemia. bmp's with improving renal function, normal electrolytes, mildly high sugar and gradually worsening contraction alkalosis. magnesium looks ok. see previous notes for other testing, results and discussion from this stay. -will check UA now. patient's lungs are clear. no evidence of intra- abdominal or skin/soft tissue infection. no indication for blood cultures or further sepsis workup at this time as cause of his bp issues appears clear. patient's bp and heart rate already improving the further he gets out from the cardizem. will defer to cardiology as far as the questions regarding adding acetozolamide, managing contraction alkalosis, further echocardiograms and/or other cardiac testing. will defer to cardiology questions regarding rhythm versus rate control. continue GLUBS as these have been stable in 100's generally. continue decreased dose of tylenol. continue novolog s/s, current metformin PO, GLUBS and hypoglycemia protocol. continue current multivitamin, entresto, albuterol nebulizer prn (home proair is on hold). continue home neurontin, tramadol. continue SQ lovenox per cardiology. defer any questions regarding anticoagulation to cardiology. patient reportedly taken off pradaxa several weeks ago by cardiology. -continue home CPAP. -cbc, bmp, mg in AM. -otherwise patient stable and this time and any further chronic medical issues can be worked on as an outpatient. RLS -continue home requip and sinemet. all other chronic medical conditions stable and no other changes to plan of care at this time. ppx -Lovenox SQ as ordered by cardiology for DVT ppx. any further DVT ppx questions deferred to cardiology. -continue PO diet for GI ppx. -FULL CODE -dispo as per primary team. patient is improving. inpatient rehab consult is in. - Time spent with patient Time with patient PN: 25 minutes Sepsis Assessment - Evaluation Confirmed Suspected Infection: No
[2017-06-06] MEDS ORDERED: INFLUENZA VAC High Dose 2017-18 (Fluzone HD*) (>=65yo) 0.5ml IM ONE (14:48)
[2017-06-06] MEDS ORDERED: PNEUMOCOCCAL 13 VACCINE 0.5ml INJECTION IM ONE (14:48)
[2017-06-06] MEDS ORDERED: PNEUMOCOCCAL VAC ADMIN CHARGE INJ ONE (15:16)
[2017-06-06] MEDS ORDERED: INFLUENZA VAC. INJ. ADMIN CHARGE INJ ONE (15:17)
--- NOTE | 2017-06-06 16:31 | Cardiology Progress Note ---
Subjective Principal diagnosis: systolic heart failure <Rhonda Adames - 06/06/17 16:40> Interval history: Almas is seen in follow up for CHF. He is in bed and states he gets dizzy when he is up. He walked in halls with PT today and does not qualify for IRU. He denies chest pain or pressure, denies palpitations or dyspnea <Rhonda Adames - 06/06/17 16:40> Exam Vital signs: Temperature 96.2 F L 06/07/17 15:01 Pulse Rate 70 06/07/17 15:17 Respiratory Rate 20 06/07/17 15:01 Blood Pressure 83/52 06/07/17 15:17 Pulse Oximetry 92 06/07/17 15:01 <Jonathan Hinojosa - 06/08/17 15:42> Temperature 96.3 F L 06/06/17 15:00 Pulse Rate 58 L 06/06/17 16:00 Respiratory Rate 16 06/06/17 15:00 Blood Pressure 95/54 06/06/17 15:00 Pulse Oximetry 93 06/06/17 15:00 <Rhonda Adames - 06/06/17 16:40> - Constitutional no acute distress, cooperative <Rhonda Adames 06/06/17 16:40> - Routine HEENT Exam Head: Present: normocephalic <Rhonda Adames 06/06/17 16:40> ENT: Present: mucous membranes moist <Rhonda Adames 06/06/17 16:40> - Routine Neck Exam Absent: JVD, carotid bruit <RosangelaRhonda Momin 06/06/17 16:40> - Routine Chest/Breast/Axilla Exam Chest wall: Absent: tenderness <Rhonda Adames 06/06/17 16:40> - Routine Respiratory Exam Present: CTA bilaterally. Absent: rales <RosangelaRhonda Momin 06/06/17 16:40> - Routine Cardiovascular Exam Present: no murmur, irregularly irregular <RosangelaRhonda Momin 06/06/17 16:40> - Routine Abdominal Exam Present: soft, normoactive bowel sounds <RosangelaRhonda Momin 06/06/17 16:40> - Routine Extremities Exam Present: no edema <Rhonda Adames M - 06/06/17 16:40> - Routine Skin Exam Present: intact, dry, warm <Rhonda Adames - 06/06/17 16:40> - Routine Neurological Exam Present: alert, oriented X3 <Rhonda Adames M - 06/06/17 16:40> - Routine Psychiatric Exam Present: normal affect, normal thought process <Rhonda Adames - 06/06/17 16: 40> - Additional findings Additional findings: Laboratory Results - last 24 hr 06/05/17 06/06/17 06/06/17 20:53 03:54 03:54 WBC 11.5 H RBC 4.66 Hgb 13.6 D Hct 43.4 D MCV 93.1 MCH 29.2 MCHC 31.3 RDW Std Deviation 55.5 H Plt Count 153 MPV 11.8 Turbidity < 20 Sodium 144 Potassium 4.3 Chloride 93 L D Carbon Dioxide 40 H Anion Gap 11 BUN 26.0 H Creatinine 1.2 D GFR Calculation 59 BUN/Creatinine Ratio 22 Glucose 101 Glucometer 203 Calculated Osmolality 282 H Calcium 8.8 Magnesium 1.7 Icterus Index < 2 B-Natriuretic Peptide Specimen Hemolysis < 15 06/06/17 06/06/17 06/06/17 03:54 06:20 11:37 WBC RBC Hgb Hct MCV MCH MCHC RDW Std Deviation Plt Count MPV Turbidity Sodium Potassium Chloride Carbon Dioxide Anion Gap BUN Creatinine GFR Calculation BUN/Creatinine Ratio Glucose Glucometer 121 196 Calculated Osmolality Calcium Magnesium Icterus Index B-Natriuretic Peptide 91582 H Specimen Hemolysis Acetaminophen (Tylenol) 325 - 650 mg PO Q6H PRN PRN Reason: Discomfort Albuterol Sulfate (Ventolin Hfa) 2 puff INH Q6H PRN PRN Reason: Shortness of air Albuterol Sulfate (Proventil Neb (0.083%)) 2.5 mg AEROSOL PRN PRN PRN Reason: Shortness of air Bumetanide (Bumex Tab) 3 mg PO [id number] [facility] Last Admin: 06/06/17 14:17 Dose: 3 mg Carbidopa/Levodopa (Sinemet) 1 tab PO TID/E [facility] Last Admin: 06/06/17 15:15 Dose: 1 tab Carvedilol (Coreg) 25 mg PO BIDWM [facility] Last Admin: 06/06/17 09:12 Dose: 25 mg Dextrose (D50%W) 10 - 20 ml IVP PRN PRN PRN Reason: Hypoglycemia Enoxaparin Sodium (Lovenox) 40 mg SQ DAILY [facility] Last Admin: 06/06/17 09:11 Dose: 40 mg Gabapentin (Neurontin) 600 mg PO HS [facility] Last Admin: 06/05/17 21:48 Dose: 600 mg Glucose (Glutose 15) 37.5 gm PO PRN PRN PRN Reason: Hypoglycemia Insulin Aspart (Novolog) 0 unit SQ SS PRN; Protocol PRN Reason: Hyperglycemia Last Admin: 06/06/17 12:24 Dose: 1 unit Metformin HCl (Glucophage) 500 mg PO BIDWM [facility] Last Admin: 06/06/17 09:12 Dose: 500 mg Multivitamins (Total B + C) 1 tab PO BID [facility] Last Admin: 06/06/17 09:11 Dose: 1 tab Potassium Chloride (K-Dur) 40 meq PO TIDWM [facility] Last Admin: 06/06/17 12:25 Dose: 40 meq Ropinirole HCl (Requip) 2 mg PO TID [facility] Last Admin: 06/06/17 14:17 Dose: 2 mg Sacubitril/Valsartan (Entresto 49/51mg) 1 tab PO DAILY [facility] Last Admin: 06/06/17 09:13 Dose: 1 tab Sodium Chloride (Iv Flush) 10 - 80 ml IV PRN PRN PRN Reason: Flushing Last Admin: 06/06/17 09:12 Dose: 10 ml Tramadol HCl (Ultram) 50 mg PO Q6HR PRN PRN Reason: P <Rhonda Adames - 06/06/17 16:40> Assessment and Plan - Assessment and Plan (1) Acute on chronic systolic (congestive) heart failure Status: Acute (2) Paroxysmal atrial fibrillation Status: Chronic (3) Essential (primary) hypertension Status: Chronic (4) Mixed hyperlipidemia Status: Chronic (5) Type 2 diabetes mellitus without complications Status: Chronic (6) Cardiomyopathy Status: Chronic (7) Atherosclerotic heart disease of [place] coronary artery without angina pectoris Status: Chronic (8) ICD (implantable cardioverter-defibrillator) in place Status: Acute <Jonathan Hinojosa - 06/08/17 15:42> (1) Acute on chronic systolic (congestive) heart failure Status: Acute (2) Paroxysmal atrial fibrillation Status: Chronic Bradycardic at times, hypotensive with c/o dizziness. Stop Cardizem (3) Essential (primary) hypertension Status: Chronic (4) Mixed hyperlipidemia Status: Chronic (5) Type 2 diabetes mellitus without complications Status: Chronic (6) Cardiomyopathy Status: Chronic (7) Atherosclerotic heart disease of [place] coronary artery without angina pectoris Status: Chronic (8) ICD (implantable cardioverter-defibrillator) in place Status: Acute <Rhonda Adames - 06/07/17 16:49> - Attestation Attestation Narrative: 06/08/17 15:42 Recommendation After examining the patient I agree with the above assessment. I am involved in the formulation of the patient's plan of care. <Jonathan Hinojosa - 06/08/17 15:42> Hospital Course Summary Disclaimer: The visit summary below is not to be considered part of the above Progress Note. <Jonathan Hinojosa - 06/08/17 15:42> The visit summary below is not to be considered part of the above Progress Note. <Rhonda Adames - 06/06/17 16:40> Hospital Course: Acute on chronic systolic HF: Admit to Medical for diuresis - Bumex 2mg IVP then Bumex drip 1mg/hr - Potassium 40meq TID with meals - Monitor renal and electrolytes AFib RVR - Give Digoxin 500mcg IV x1, 250mcg in 6 hours - Cardizem 180mg po daily - TSH and Mag 06/05/17 16:03 Change Bumex drip to Bumex 2mg IV Q8H repeat BMP and Mag in AM Coreg 25mg po BID for better rate control. Cardizem 180mg po daily, start in am 06/06/17 Bradycardic at times, hypotensive with c/o dizziness. Stop Cardizem <Rhonda Adames - 06/06/17 16:40>
[2017-06-06] MEDS: MAGNESIUM SULFATE 1gm PREMIX 1 GM/100 ML BAG IV SCH ×2 (17:14→18:41)
[2017-06-06] MEDS ORDERED: NS FLUSH BAG 500ml IV PRN (17:15)
[2017-06-06] MEDS ORDERED: NS 1,000 ML IV SCH (21:30)
[2017-06-06] MEDS: GABAPENTIN 300 MG CAP - PT OWN PO SCH (21:37)
[2017-06-07 03:55] VITALS: RESP 20
[2017-06-07] MEDS: CARBIDOPA PO SCH ×2 (05:57→14:52)
[2017-06-07] MEDS: LEVODOPA PO SCH ×2 (05:57→14:52)
[2017-06-07] MEDS: VITAMIN B COMPLEX + C TABLET PO SCH (08:04)
[2017-06-07] MEDS: CARVEDILOL 25 MG TABLET PO SCH ×2 (08:04→17:46)
[2017-06-07] MEDS: ENOXAPARIN 40 MG/0.4 ML INJECTION SQ SCH (08:04)
[2017-06-07] MEDS: METFORMIN 500 MG TAB - PT OWN PO SCH ×2 (08:04→17:46)
[2017-06-07] MEDS: BUMETANIDE 1 MG TABLET PO SCH ×2 (08:04→14:52)
[2017-06-07] MEDS: SACUBITRIL PO SCH (08:05)
[2017-06-07] MEDS: VALSARTAN PO SCH (08:05)
[2017-06-07] MEDS: ROPINIROLE 2 MG PO SCH ×2 (08:06→14:52)
[2017-06-07] MEDS: INSULIN ASPART 100unit/ml INJECTION SQ PRN ×2 (11:47→17:45)
--- NOTE | 2017-06-07 13:36 | Progress Note ---
Subjective: no acute events overnight. bp's have come back up to normal and HR within normal range. in speaking with patient it is noted he feels much better today. doesn't feel groggy like yesterday. still breathing well. no confusion or issues with concentration. no dizziness or orthostatic symptoms. no headaches , vision changes, URI symptoms, sinus issues. no numbness/weakness/tingling anywhere. no falls, trauma, injuries. no chest pain, SOA, orthopnea, PND, edema, leg asymmetry. breathing back to baseline per patient. no cough, sputum production, hemoptysis. eating/drinking ok and appetite is ok. no palpitations, abdominal pain, nausea, vomiting, diarrhea, constipation, bloody/ black stools, hematemesis, coffee ground emesis, melena, BRBPR. when asked he notes he's had X3 normal BM's since our last visit. diuresis has slowed down. no fatigue, weakness or other constitutional symptoms. no dysuria, hematuria, urinary frequency, flank pain, nocturia, urinary/bowel incontinance. no other urinary symptoms/changes. no new skin changes or rashes. no mood changes, delerium symptoms or issues with cognition. no new issues otherwise at this time. Objective Vital signs: Temperature 96.6 F L 06/07/17 11:15 Pulse Rate 78 06/07/17 11:15 Respiratory Rate 20 06/07/17 11:15 Blood Pressure 110/61 06/07/17 11:15 Pulse Oximetry 90 06/07/17 11:15 Rhythm: Atrial Fibrillation with Normal Ventricular Rate Height/Weight/BMI: Weight 67.4 kg - Constitutional Present: no acute distress, cooperative. Absent: diaphoretic, disheveled, combative, agitated, somnolent, obtunded - Routine HEENT Exam Head: Present: normocephalic, atraumatic ENT: Present: mucous membranes moist - Routine Respiratory Exam Present: CTA bilaterally. Absent: accessory muscle use, patient mechanically ventilated, dyspnea, decreased breath sounds, prolonged expiratory phase, rales , respiratory distress, rhonchi, stridor, wheezes, crackles, distant breath sounds, diminished air movement Comments: lung sound heard in all lung bearden b/l at this time. - Routine Cardiovascular Exam Comments: cardiac exam unchanged from previous. no new edema in LE's at this time. legs symmetrical and compartments soft b/l in LE's at this time. clinically well perfused in all 4 extremities b/l at this time. - Routine Abdominal Exam Present: soft (X4.), normoactive bowel sounds (X4.), non distended (X4.), non tender (X4.). Absent: tenderness (X4.), distended (X4.), rebound, guarding, firm, rigid, organomegaly, mass Comments: no ascites or jaundice. - Routine Exam Comments: no tenderness over bladder area. - Routine Extremities Exam Absent: cyanosis, pallor, extremity cold to touch Comments: see above. - Routine Skin Exam Present: intact Comments: no changes from previous to uncovered areas. - Routine Neurological Exam Present: alert, oriented X3 no focal deficits grossly at this time. - Routine Lymphatic Exam Lymphatic: Absent: lymphedema - Routine Psychiatric Exam Present: normal affect, normal thought process, cooperative. Absent: auditory hallucinations, visual hallucinations, tactile hallucinations, depressed, anxious, agitated, paranoid, manic Comments: personality, affect and cognition at patient's usual baseline. no clinical evidence of delerium, james, psychosis, depresison, anxiety, confusion, altered mentation/sensorum. knows date, president, location, person without issue today. Results - Labs CBC & Chem 7: 06/07/17 04:02 06/07/17 04:02 Assessment and Plan DVT Prophylaxis: Lovenox (per cardiology.) GI Prophylaxis: other (PO diet.) Resuscitation Status: Full Code Assessment and Plan: acute on chronic systolic congestive heart failure acute mild hypotension and atrial fibrillation with bradycardia this AM from combination of diuresis and calcium channel dejah. atrial fibrillation with RVR mild stress induced leukocytosis T2DM obstructive sleep apnea contraction alkalosis HTN chronic multifactorial anemia osteoarthritis chronic kidney disease COPD -continue admission orders, telemetry, I's and O's, cardiac diet and other admission order as per cardiology who is primary. cardiology was ok with normal salilne at 75ml/hr and this has been stopped now. he tolerated it well and seemed to respond to it well also. doesn't appear clinically fluid overloaded at this time. patient having occasional runs of v-tach which are chronic and being followed by cardiology. we will defer management of that to cardiology. no clinical evidence of infection and patient is at his usual baseline from a symptomatic and physical exam standpoint. will defer to cardiology any questions regarding managing contraction alkalosis , further cardiac testing. defer any questions regarding anticoagulation to carediology. -cardiology has transitioned patient to PO bumex. cardiology managing PO coreg, PO potassium, electrolyte (magnesium) replacement as needed. cardiazem has been discontinued as per yesterday's note. -cbc's with chronic and stable multifactorial anemia and mild, likely stress induced leukocytosis which is stable from yesterday. bmp's with stable renal function and stable alkalosis at this time. GLUBS and blood sugars look ok. mg's look ok. UA yesterday normal. see previous notes for other testing, results and discussion from this stay. -continue decreased dose of tylenol, novolog s/s, current metformin PO, GLUBS, hypoglycemia protocol, multivitamin, entresto, albuterol nebulizer prn, neurontin, tramadol, SQ lovenox (per cardiology) -continue home CPAP. -AM labs per cardiology. RLS -continue home requip and sinemet. all other chronic medical conditions stable and no other changes to plan of care at this time. ppx -Lovenox SQ as ordered by cardiology for DVT ppx. any further DVT ppx questions deferred to cardiology. -continue PO diet for GI ppx. -FULL CODE -dispo if patient's blood pressures stay up and heart rate stays normal, he's ok for discharge from my standpoint. his other non-cardiac comorbidities are doing ok and the rest can be worked on as an outpatient. - Time spent with patient Time with patient PN: 25 minutes Sepsis Assessment - Evaluation Confirmed Suspected Infection: No
[2017-06-07 15:03] VITALS: TEMP 96.2; O2SAT 92
[2017-06-07 15:18] VITALS: BP 83/52; PULSE 70
--- NOTE | 2017-06-07 16:53 | Discharge Summary ---
<Rhonda Adames M - Last Filed: 06/07/17 16:49> Discharge Information Date of admission: 06/05/17 16:10 Anticipated date of discharge: 06/07/17 Attending Physician: Jonathan Hinojosa MD Primary care physician: Shawn Smith DO Consults: 06/06/17 IRU Screening [Inpatient Rehab Screening] [CONS] Routine - Discharge Diagnosis (1) Acute on chronic systolic (congestive) heart failure Status: Acute (2) Paroxysmal atrial fibrillation Status: Chronic (3) Essential (primary) hypertension Status: Chronic (4) Mixed hyperlipidemia Status: Chronic (5) Type 2 diabetes mellitus without complications Status: Chronic (6) Cardiomyopathy Status: Chronic (7) Atherosclerotic heart disease of [place] coronary artery without angina pectoris Status: Chronic (8) ICD (implantable cardioverter-defibrillator) in place Status: Acute - Laboratory Labs: 06/07/17 04:02 06/07/17 04:02 Laboratory Results - last 24 hr 06/06/17 06/06/17 06/06/17 17:03 18:38 21:43 WBC RBC Hgb Hct MCV MCH MCHC RDW Std Deviation Plt Count MPV Turbidity Sodium Potassium Chloride Carbon Dioxide Anion Gap BUN Creatinine GFR Calculation BUN/Creatinine Ratio Glucose Glucometer 136 288 Calculated Osmolality Calcium Magnesium Icterus Index Specimen Hemolysis Ur Collection Type Urine, clean catch Urine Color Yellow Urine Clarity Clear Urine pH 7.5 Ur Specific [place] 1.010 L Urine Protein Negative Urine Glucose (UA) Negative Urine Ketones Negative Urine Occult Blood Negative Urine Nitrate Negative Urine Bilirubin Negative Urine Urobilinogen 0.2 Ur Leukocyte Esterase Negative Urine RBC None seen Urine WBC 0-1 Urine Bacteria None seen Ur Culture Indicated? Cult not indicated 06/07/17 06/07/17 06/07/17 04:02 04:02 06:16 WBC 11.4 H RBC 4.70 Hgb 13.7 Hct 43.8 MCV 93.2 MCH 29.1 MCHC 31.3 RDW Std Deviation 56.5 H Plt Count 167 MPV 11.7 Turbidity < 20 Sodium 143 Potassium 4.6 Chloride 93 L Carbon Dioxide 40 H Anion Gap 10 BUN 28.0 H Creatinine 1.3 GFR Calculation 54 BUN/Creatinine Ratio 22 Glucose 83 Glucometer 102 Calculated Osmolality 280 Calcium 8.9 Magnesium 2.4 H D Icterus Index < 2 Specimen Hemolysis 23 Ur Collection Type Urine Color Urine Clarity Urine pH Ur Specific [place] Urine Protein Urine Glucose (UA) Urine Ketones Urine Occult Blood Urine Nitrate Urine Bilirubin Urine Urobilinogen Ur Leukocyte Esterase Urine RBC Urine WBC Urine Bacteria Ur Culture Indicated? 06/07/17 11:11 WBC RBC Hgb Hct MCV MCH MCHC RDW Std Deviation Plt Count MPV Turbidity Sodium Potassium Chloride Carbon Dioxide Anion Gap BUN Creatinine GFR Calculation BUN/Creatinine Ratio Glucose Glucometer 216 Calculated Osmolality Calcium Magnesium Icterus Index Specimen Hemolysis Ur Collection Type Urine Color Urine Clarity Urine pH Ur Specific [place] Urine Protein Urine Glucose (UA) Urine Ketones Urine Occult Blood Urine Nitrate Urine Bilirubin Urine Urobilinogen Ur Leukocyte Esterase Urine RBC Urine WBC Urine Bacteria Ur Culture Indicated? - Radiology Radiology: Date of Exam: 06/04/17 Ordering Provider: Ramiro Wall DO Type of Exam(s): XR chest 1V Reason for Exam(s): afib EXAM: XR chest 1V 1503 hours COMPARISON: None available. HISTORY: afib . FINDINGS: The heart is enlarged. The pulmonary vascularity is prominent and indistinct. There is increased perihilar interstitial markings. There is no evidence for pleural effusion. There is no evidence for a pneumothorax. No osseous abnormalities are identified. Pacemaker and pacer wire is stable. IMPRESSION: Cardiomegaly with mild pulmonary vascular congestive changes. NOTE: The results were discussed with the ordering clinician, Ramiro Wall DO soon after the exam was performed on the day of the exam. LOC[place]CTATION: [facility] [place] Illness HPI: Mr. Aviles is a 76-year-old gentleman who is well known to Dr. Hinojosa who has a history of cardiomyopathy with EF of 30% or less, CAD, Atrial fibrillation and frequent PVCs, valvular disease, HTN, HLD< and DM. He presented to the ED with chief complaint of shortness of air, increased palpitations and low BP per nurse. Upon exam he admits that he has been drinking a lot of soda and eating a lot of ice cream. He denies chest pain or pressure, denies feeling his heart racing or skipping beats. He has dyspnea on exertion and bilateral LE edema. He denies recent illness, fever chills, sore throat, cough, N/V/D. Hospital Course This is a general summary of the patient's hospital course. For more details refer to the complete medical record. Hospital course: Acute on chronic systolic HF: Admit to Medical for diuresis - Bumex 2mg IVP then Bumex drip 1mg/hr - Potassium 40meq TID with meals - Monitor renal and electrolytes AFib RVR - Give Digoxin 500mcg IV x1, 250mcg in 6 hours - Cardizem 180mg po daily - TSH and Mag 06/05/17 16:03 Change Bumex drip to Bumex 2mg IV Q8H repeat BMP and Mag in AM Coreg 25mg po BID for better rate control. Cardizem 180mg po daily, start in am 06/06/17 Bradycardic at times, hypotensive with c/o dizziness. Stop Cardizem 06/07/17 BNP 80405 is patient's baseline. Discharge to home today. Time spent with patient: 25 - 35 minutes DVT Prophylaxis: Lovenox Exam Vital signs: Temperature 96.2 F L 06/07/17 15:01 Pulse Rate 70 06/07/17 15:17 Respiratory Rate 20 06/07/17 15:01 Blood Pressure 83/52 06/07/17 15:17 Pulse Oximetry 92 06/07/17 15:01 - Constitutional no acute distress, well nourished, cooperative - Routine HEENT Exam Head: Present: normocephalic ENT: Present: mucous membranes moist - Routine Neck Exam Absent: JVD, carotid bruit - Routine Chest/Breast/Axilla Exam Chest wall: Absent: tenderness - Routine Respiratory Exam Present: CTA bilaterally. Absent: rales, wheezes - Routine Cardiovascular Exam Present: irregular rhythm. Absent: no murmur, JVD - Routine Abdominal Exam Present: soft, normoactive bowel sounds - Routine Extremities Exam Present: no edema - Routine Skin Exam Present: intact, dry, warm - Routine Neurological Exam Present: alert, oriented X3 - Routine Psychiatric Exam Present: normal affect, normal thought process Results 06/07/17 04:02 06/07/17 04:02 CBC 06/07/17 Range/Units 04:02 WBC 11.4 H (4.5-11.0) T/MM3 RBC 4.70 (4.50-5.90) M/MM3 Hgb 13.7 (13.5-17.5) GM/DL Hct 43.8 (41-53) % Plt Count 167 (130-400) T/MM3 Comprehensive Metabolic Panel 06/07/17 Range/Units 04:02 Sodium 143 (134-144) MEQ/L Potassium 4.6 (3.6-5) MEQ/L Chloride 93 L (98-107) MEQ/L Carbon Dioxide 40 H (22-30) MEQ/L BUN 28.0 H (9-20) MG/DL Creatinine 1.3 (0.8-1.5) MG/DL Glucose 83 (75-110) MG/DL Calcium 8.9 (8.4-10.2) MG/DL Intake and Output 06/07/17 06/07/17 06/07/17 06:59 14:59 22:59 Intake Total 1543.75 / 1543.75 Output Total 1200 / 1200 200 / 200 Balance -1200 / -1200 1343.75 / 1343.75 Intake: IV 803.75 / 803.75 Ns 1,000 ml @ 75 mls/hr 803.75 / 803.75 IV .[id number] Rx#: [id number] Oral 740 / 740 Output: Urine 1200 / 1200 200 / 200 Other: Urine Appearance Clear Clear Urine Color Yellow Yellow Stool Color Brown Stool Consistency Soft Size of Bowel Movement Small # Incontinent Voids 1 # Bowel Movements 1 Weight 148 lb 9.465 oz Patient Weight 06/08/17 06:59 Weight 148 lb 9.465 oz - Imaging and Cardiology EKG results: image reviewed - EKG Interpretation EKG shows: atrial fibrillation Discharge Plan - Med Rec/Dispo Referrals/Follow Up: Jonathan Hinojosa MD [Physician] - quin Instructions: Heart Failure (GEN) Additional Instructions: Follow up with Dr. Hinojosa in 2 weeks Prescriptions: New Bumetanide Tab [Bumex Tab] 2 mg PO [id number] #120 tab Continue Carbidopa/Levodopa [Sinemet 25-100 mg Tablet] 1 tab PO TID #0 tab Celecoxib [Celebrex] 200 mg PO HS #0 cap Potassium Chloride 20 meq PO BIDWM #0 Acetaminophen [Arthritis Pain Relief] 2 tab PO PRN PRN PRN Reason: Pain Albuterol Sulfate [Proair Hfa] 2 puff IH Q6H PRN #0 PRN Reason: SHORTNESS OF AIR Gabapentin 600 mg PO HS #0 Ropinirole HCl 2 mg PO TID #0 B-Complex with Vitamin C [Super B Complex-Vitamin C] 1 tab PO BID #0 Silver Sulfadiazine [Silvadene] 1 applic TOP PRN #0 Tramadol HCl 50 mg PO Q6HR PRN #0 tab PRN Reason: PAIN Metformin [Glucophage] 500 mg PO BIDWM SACUBITRIL/VALSARTAN 49/51mg [ENTRESTO 49/51mg] 1 tab PO DAILY Albuterol Neb (0.083%) [Proventil Neb (0.083%)] 2.5 mg AEROSOL PRN PRN PRN Reason: Shortness Of Air Carvedilol 25 mg PO BID Discontinued Bumetanide Tab [Bumex Tab] 1 mg PO BID - Disposition [facility] <Jonathan Hinojosa - Last Filed: 06/11/17 13:18> Discharge Information Date of admission: 06/05/17 16:10 Attending Physician: Jonathan Hinojosa MD Primary care physician: Shwan Smith DO Consults: 06/06/17 IRU Screening [Inpatient Rehab Screening] [CONS] Routine - Discharge Diagnosis (1) Acute on chronic systolic (congestive) heart failure Status: Acute (2) Paroxysmal atrial fibrillation Status: Chronic (3) Essential (primary) hypertension Status: Chronic (4) Mixed hyperlipidemia Status: Chronic (5) Type 2 diabetes mellitus without complications Status: Chronic (6) Cardiomyopathy Status: Chronic (7) Atherosclerotic heart disease of [place] coronary artery without angina pectoris Status: Chronic (8) ICD (implantable cardioverter-defibrillator) in place Status: Acute - Laboratory Labs: 06/07/17 04:02 06/07/17 04:02 Hospital Course This is a general summary of the patient's hospital course. For more details refer to the complete medical record. Exam Vital signs: Temperature 96.2 F L 06/07/17 15:01 Pulse Rate 70 06/07/17 15:17 Respiratory Rate 20 06/07/17 15:01 Blood Pressure 83/52 06/07/17 15:17 Pulse Oximetry 92 06/07/17 15:01 Results 06/07/17 04:02 06/07/17 04:02 Discharge Plan - Med Rec/Dispo - Attestation Attestation Narrative: 06/11/17 13:18 Recommendation After examining the patient I agree with the above assessment. I am involved in the formulation of the patient's plan of care.
[2017-06-08] MEDS ORDERED: BUMETANIDE 1 MG TABLET PO SCH (09:00)
== END 2017-06-07 18:20 | disposition home health service (06) | DRG 291 ==
LOC: ED 14:06 → MED 14:06
PROVIDERS: ADMIT Internal Medicine Cardiovascular Disease; ATTEND Internal Medicine Cardiovascular Disease

== ENCOUNTER 2017-07-30 18:05 | Inpatient (IN) ==
[2017-07-30] MEDS ORDERED: SALINE FLUSH 10ml SYRINGE IVF PRN (18:18)
[2017-07-30] MEDS ORDERED: LR 1,000 ML IV SCH (18:30)
--- NOTE | 2017-07-30 19:02 | Emergency Department Report ---
SOB HPI - General Chief Complaint: Shortness of Breath/Dyspnea [facility] Stated Complaint: soa,cp,low oxygen,weakness in legs,low bp <[facility] 21[facility]06> Time Seen by Provider: 07/30/17 18:29 <[facility] 07/30/17 21:06> Source: patient <Mikayla Lobato 07/30/17 19:02> Mode of arrival: wheelchair <TeddyfernandotomiMikayla [facility] 07/30/17 19:02> Limitations: no limitations <Luis AlfredoMikayla [facility] 07/30/17 19:02> - History of Present Illness Pt presents with dyspnea and cough for several days. Pt has CPAP at home which he states he has been on all day. He has taken his medications but has not had any relief, Productive cough,, unknown fever. No tobacco for 15 years, No pedal edema <Mikayla Lobato [facility] 07/30/17 19:02> MD Complaint: shortness of breath, cough, anxiety <TeddyfernandotomiMikayla [facility] 19:02> Onset (ago): day(s) <Mikayla Lobato [facility] 07/30/17 19:02> Context: other <Mikayla Lobato [facility] 07/30/17 19:02> Severity: severe <Mikayla Lobato [facility] 07/30/17 19:02> Consistency/Duration: constant <Mikayla Lobato 07/30/17 19:02> Relieving factors: oxygen, rest, bronchodilators <Mikayla Lobato 19:02> Exacerbating factors: exertion, movement, coughing <Mikayla Lobato [facility] 07/30 19:02> Known history of: COPD, congestive heart failure <Mikayla Lobato 19:02> Associated symptoms: cough, wheezing, sputum production, syncope <Mikayla Lobato 07/30/17 19:02> - Related Data Home Medications Medication Instructions Recorded Confirmed Albuterol Sulfate [Proair Hfa] 2 puff IH Q6H PRN #0 01/09/14 07/30/17 Gabapentin 600 mg PO HS #0 11/02/15 07/30/17 Ropinirole HCl 2 mg PO TID #0 11/02/15 07/30/17 Carbidopa/Levodopa [Sinemet 25-100 1 tab PO TID #0 tab 01/06/17 07/30/17 mg Tablet] Celecoxib [Celebrex] 200 mg PO HS #0 cap 01/06/17 07/30/17 Tramadol HCl 50 mg PO BID #0 tab 01/06/17 07/30/17 Potassium Chloride 20 meq PO DAILY #0 01/17/17 07/30/17 Acetaminophen [Arthritis Pain 1,300 mg PO BID PRN 03/28/17 07/30/17 Relief] Metformin [Glucophage] 500 mg PO DAILY 04/30/17 07/30/17 Albuterol Neb (0.083%) [Proventil 2.5 mg AEROSOL PRN PRN 05/25/17 07/30/17 Neb (0.083%)] B-Complex with Vitamin C [Super B 1 cap PO [id number] 07/13/17 07/30/17 with Vit C] Carvedilol 25 mg PO BID 07/13/17 07/30/17 Bumetanide Tab [Bumex Tab] 1 mg PO BID 07/30/17 07/30/17 Docusate Sodium [Colace] 100 mg PO HS 07/30/17 07/30/17 <JanuarySam M - 07/30/17 21:06> Allergies Allergy/AdvReac Type Severity Reaction Status Date / Time prednisone Allergy Unknown ANXIOUS Verified 07/30/17 18:25 Corticosteroids Allergy Verified 07/30/17 18:25 (Glucocorticoids) Quinolones Allergy Verified 07/30/17 18:25 tetracycline Allergy Verified 07/30/17 18:25 dicyclomine AdvReac Severe "MAKES ME Verified 07/30/17 18:25 VERY NERVOUS AND JITTERY" aspirin AdvReac Unknown CAUSES GI Verified 07/30/17 18:25 BLEEDING ciprofloxacin AdvReac Unknown HYPERACTIVE Verified 07/30/17 18:25 <JanuarySam M - 07/30/17 21:06> Review of Systems All systems: reviewed and negative except as stated <Mikayla Lobato - 19:02> Constitutional: Reports: as per HPI <Mikayla Lobato 07/30/17 19:02> Cardiovascular: Reports: as per HPI <Mikayla Lobato 07/30/17 19:02> Respiratory: Reports: as per HPI <Mikayla Lobato 07/30/17 19:02> Musculoskeletal: Reports: as per HPI <Mikayla Lobato 07/30/17 19:02> [facility] Patient Stated Medical History Dementia Yes Migraine Yes Peripheral Neuropathy Yes Parkinson's Disease Yes Cataracts Yes Dental Problems Yes: NO TEETH Hearing Loss Yes Other HEENT Yes: WEARS GLASSES Angina Yes Cardiac Arrhythmia Yes: AFIB,PVC,V-TACH Congestive Heart Failure Yes: EF 20 % Coronary Artery Disease Yes Hypertension Yes Myocardial Infarction No Rheumatic Fever Yes Valvular Heart Disease Yes Asthma Yes Chronic Obstructive Pulmonary Yes Disease (COPD) Pneumonia Yes Sleep Apnea Yes Diabetes Mellitus Type 2 Yes Gastroesophageal Reflux Yes Disease Hiatal Hernia Yes Hx Benign Prostatic Yes Hyperplasia Hx Incontinence Yes Hx Urinary Tract Infection Yes Other Yes: PROSTATE CA Anemia Yes Osteoarthritis Yes Other Musculoskeletal Yes: RLS, Parkinson's, dimentia, and presyncopal episode Shingles Yes Other Infectious Yes: UNKNOWN LUNG INFECTION Blood Transfusions Yes: NO PROBLEMS Other Yes: RADATION Depression Yes Clinic Medical History (Last Updated 07/04/17 @ 12:18 by Asia Dejesus APRN) Acute exacerbation of chronic obstructive airways disease (Acute Medical) Renal failure as complication of care (Acute Medical) Bradycardia (Resolved Medical) Acute on chronic systolic (congestive) heart failure (Acute Medical) Paroxysmal atrial fibrillation (Chronic Medical) Essential (primary) hypertension (Chronic Medical) Mixed hyperlipidemia (Chronic Medical) Type 2 diabetes mellitus without complications (Chronic Medical) Atherosclerotic heart disease of [place] coronary artery without angina pectoris (Chronic Medical) Pre-syncope (Acute Medical) Multiple falls (Acute Medical) Congestive heart failure (Acute Medical) ICD (implantable cardioverter-defibrillator) in place (Acute Medical) CHF (congestive heart failure) (Chronic Medical) Prostate cancer (Acute Medical) Anemia (Chronic Medical) Anxiety (Chronic Medical) COPD (chronic obstructive pulmonary disease) (Chronic Medical) Depression (Chronic Medical) Diabetes mellitus (Chronic Medical) GERD (gastroesophageal reflux disease) (Chronic Medical) HTN (hypertension) (Chronic Medical) Macular degeneration (Chronic Medical) JEANNA (obstructive sleep apnea) (Chronic Medical) Pacemaker (Chronic Medical) History of adenomatous polyp of colon (Resolved Medical) History of alcoholism (Resolved Medical) Atrial fibrillation with RVR (Inactive Medical) Cardiomyopathy (Inactive Medical) Dehydration (Inactive Medical) Dehydration (Inactive Medical) Hyperglycemia (Inactive Medical) Palpitations (Inactive Medical) Pneumonia (Inactive Medical) Pneumonia (Inactive Medical) <January,[facility] 07/30/17 21:06> Surgical History: exploratory thoracotomy 11/1975. vasectomy 1979. TURP 1993. Prosate radiation 2005. Left Inguinal hernia repair 01/12/2014. Right Inguinal hernia repair 03/04/2014. Colonoscopy Tubulovillous adenoma at 9 piecemealed out 01/03/2017 [facility]. EGD esophagitis, no Martinez's 01/03/2017. Colonoscopy normal 03/04/2014 [facility]. Colonoscopy normal diverticulosis 2009 [facility]. Left heart cath no stents 12/07/2011. Hiatal hernia repair 1979. Right total knee replacement 02/28/1993. Left total knee replacement . Heart cath 03/11/1997. <Mikayla Lobato 07/30/17 19:02> Family History: Family History (Last Updated 07/04/17 @ 12:23 by Asia Dejesus, HUNG) Father Diabetes mellitus HTN (hypertension) Mother Diabetes mellitus HTN (hypertension) <January,[facility] 07/30/17 21:06> - Social History Smoking status: Former smoker <Mikayla Lobato 07/30/17 19:02> Does patient use chewing tobacco?: No <Mikyala Lobato 07/30/17 19:02> Physical Exam - Limitations Limitations: no limitations <Mikayla Lobato 07/30/17 19:02> - General General appearance: alert, in distress <Mikayla Lobato 07/30/17 19:02> - Normal Exams: Head:: Normocephalic without trauma <Mikayla Lobato 07/30/17 19:02> Eyes:: Pupils are PERRLA w/ EOMI <Mikayla Lobato 07/30/17 19:02> Neck:: Full range of motion, without adenopathy <Mikayla Lobato 19:02> Chest/Respirations:: Clear all bearden, with good airflow, and symmetry bilaterally (dyspnec) <TeddyrafaelMikayla Cory 07/30/17 19:02> Cardiovascular:: Regular rate and rhythm, without murmur or gallop, Pulses 2+ all extremities <Mikayla Lobato Edvin 07/30/17 19:02> Abdomen:: Bowel sounds positive, soft, non-tender, non-distended <Luis Alfredo Mikayla R 07/30/17 19:02> Musculoskeletal:: No tenderness, or deformity noted, good range of motion, all extremities <TeddyrafaelMikayladahiana Pardo 07/30/17 19:02> Integumentary:: No rashes <Luis AlfredoMikayla R 07/30/17 19:02> Neurological:: Patient is alert, and oriented, cranial nerves <Luis Alfredo Mikayladahiana Pardo 07/30/17 19:02> Psychiatric:: Patient exhibits, appropriate attention, emotion and affect < Luis AlfredoMikayladahiana Pardo 07/30/17 19:02> Course Vital Signs Temperature 98.0 F 07/30/17 18:05 Pulse Rate 112 H 07/30/17 18:05 Respiratory Rate 24 07/30/17 18:05 Blood Pressure 136/68 07/30/17 18:05 Pulse Oximetry 91 07/30/17 18:05 Temperature 98.0 F 07/30/17 18:05 Pulse Rate 96 07/30/17 20:16 Respiratory Rate 24 07/30/17 20:16 Blood Pressure 136/68 07/30/17 18:05 Pulse Oximetry 96 07/30/17 20:16 <JanuarySam M - 07/30/17 21:06> Shortness of Breath/Dyspnea - MDM Narrative Medical decision making narrative: Lab, EKG, and Xray reviewed. Dr Johansen notified of pt history and current findings. Pt to be admitted observation with potential for inpatient. Findings and treatment discussed with family and pt who verbalize understanding <Theresa Lobatodahiana Ray 07/30/17 20:52> - Differential Diagnosis Likely: acute exacerbation of chronic obstructive airways disease, congestive heart failure, community acquired pneumonia, asthma with exacerbation < Luis AlfredoMikayladahiana Pardo 07/30/17 19:02> - Lab Data Attestation: I reviewed the patient's lab results. <Mikayla Lobato R - 07/30 20:52> Result diagrams: 07/30/17 18:46 07/30/17 18:27 <Sam Crowley M - 07/30/17 21:06> Lab Results 07/30/17 07/30/17 07/30/17 Range/Units 18:27 18:27 18:46 WBC 8.0 (4.5-11.0) T/MM3 RBC 3.92 L (4.50-5.90) M/MM3 Hgb 11.2 L (13.5-17.5) GM/DL Hct 36.3 L (41-53) % MCV 92.6 (80-100) UM3 MCH 28.6 (26-34) UUG MCHC 30.9 L (31-37) GM/DL RDW Std Deviation 55.5 H (36.9-50.2) FL Plt Count 194 (130-400) T/MM3 MPV 10.2 (9.4-12.4) UM3 Immature Gran % (Auto) 0.1 (0.0-0.5) % Neut % (Auto) 77.0 H (33-66) % Lymph % (Auto) 13.8 L (23-45) % Roane % (Auto) 7.1 (0-9.0) % Eos % (Auto) 1.5 (0-4) % Baso % (Auto) 0.5 (0-2) % Neut # (Auto) 6.2 (1.8-7.7) T/MM3 Lymph # (Auto) 1.1 (1-4.8) T/MM3 Roane # (Auto) 0.6 (0-0.8) T/MM3 Eos # (Auto) 0.1 (0-0.5) T/MM3 Baso # (Auto) 0.0 (0-0.2) T/MM3 Abs Immat Gran (auto) 0.01 (0.00-0.03) T/MM3 Turbidity < 20 (0-20) Sodium 141 (134-144) MEQ/L Potassium 4.0 (3.6-5) MEQ/L Chloride 95 L (98-107) MEQ/L Carbon Dioxide 32 H (22-30) MEQ/L Anion Gap 14 (5-15) MEQ/L BUN 55.0 H* (9-20) MG/DL Creatinine 1.4 (0.8-1.5) MG/DL GFR Calculation 49 BUN/Creatinine Ratio 39 H (6-26) RATIO Glucose 219 H (75-110) MG/DL Calculated Osmolality 293 H (261-280) MOSM/KG Calcium 8.8 (8.4-10.2) MG/DL Total Bilirubin 0.70 (0.20-1.30) MG/DL Icterus Index < 2 (0-7) AST 25 (17-59) U/L ALT 22 (21-72) U/L Alkaline Phosphatase 129 H (38-126) U/L Troponin I (0-0.12) ng/ml B-Natriuretic Peptide 87621 H (0-175) pg/mL Total Protein 7.9 (6.3-8.2) G/DL Albumin 4.0 (3.5-5.0) G/DL Globulin 3.9 H (2.4-3.6) G/DL Albumin/Globulin Ratio 1.0 L (1.1-2.2) RATIO Plasma Lactate (0.6-2.2) MMOL/L Specimen Hemolysis 23 (0-25) Ur Collection Type Urine Color (YELLOW) Urine Clarity Urine pH (5.0-8.0) Ur Specific Baxter (1.015-1.025) Urine Protein (NEGATIVE) Urine Glucose (UA) (NEGATIVE) Urine Ketones (NEGATIVE) Urine Occult Blood (NEGATIVE) Urine Nitrate (NEGATIVE) Urine Bilirubin (NEGATIVE) Urine Urobilinogen (NORMAL) EU/DL Ur Leukocyte Esterase (NEGATIVE) Urinalysis Comment 07/30/17 07/30/17 Range/Units 18:46 20:12 WBC (4.5-11.0) T/MM3 RBC (4.50-5.90) M/MM3 Hgb (13.5-17.5) GM/DL Hct (41-53) % MCV (80-100) UM3 MCH (26-34) UUG MCHC (31-37) GM/DL RDW Std Deviation (36.9-50.2) FL Plt Count (130-400) T/MM3 MPV (9.4-12.4) UM3 Immature Gran % (Auto) (0.0-0.5) % Neut % (Auto) (33-66) % Lymph % (Auto) (23-45) % Roane % (Auto) (0-9.0) % Eos % (Auto) (0-4) % Baso % (Auto) (0-2) % Neut # (Auto) (1.8-7.7) T/MM3 Lymph # (Auto) (1-4.8) T/MM3 Roane # (Auto) (0-0.8) T/MM3 Eos # (Auto) (0-0.5) T/MM3 Baso # (Auto) (0-0.2) T/MM3 Abs Immat Gran (auto) (0.00-0.03) T/MM3 Turbidity (0-20) Sodium (134-144) MEQ/L Potassium (3.6-5) MEQ/L Chloride (98-107) MEQ/L Carbon Dioxide (22-30) MEQ/L Anion Gap (5-15) MEQ/L BUN (9-20) MG/DL Creatinine (0.8-1.5) MG/DL GFR Calculation BUN/Creatinine Ratio (6-26) RATIO Glucose (75-110) MG/DL Calculated Osmolality (261-280) MOSM/KG Calcium (8.4-10.2) MG/DL Total Bilirubin (0.20-1.30) MG/DL Icterus Index (0-7) AST (17-59) U/L ALT (21-72) U/L Alkaline Phosphatase (38-126) U/L Troponin I < 0.012 (0-0.12) ng/ml B-Natriuretic Peptide (0-175) pg/mL Total Protein (6.3-8.2) G/DL Albumin (3.5-5.0) G/DL Globulin (2.4-3.6) G/DL Albumin/Globulin Ratio (1.1-2.2) RATIO Plasma Lactate 3.4 H (0.6-2.2) MMOL/L Specimen Hemolysis 21 (0-25) Ur Collection Type Urine, clean catch Urine Color Yellow (YELLOW) Urine Clarity Clear Urine pH 5.0 (5.0-8.0) Ur Specific [place] 1.015 (1.015-1.025) Urine Protein Negative (NEGATIVE) Urine Glucose (UA) 1+ A (NEGATIVE) Urine Ketones Negative (NEGATIVE) Urine Occult Blood Negative (NEGATIVE) Urine Nitrate Negative (NEGATIVE) Urine Bilirubin Negative (NEGATIVE) Urine Urobilinogen 0.2 (NORMAL) EU/DL Ur Leukocyte Esterase Negative (NEGATIVE) Urinalysis Comment Microscopic not ind. <January,[facility] 07/30/17 21:06> - Radiology Data Attestation: I reviewed the patient's radiology results. (per January) < Mikayla Lobato 07/30/17 20:52> - EKG Data EKG #1 EKG attestation: Yes: I reviewed and interpreted this EKG. <January,[facility] 21:06> EKG shows normal: ST-T waves <January,[facility] 07/30/17 21:06> Rate: tachycardia <January,[facility] 07/30/17 21:06> Rhythm: A.Fib <January,[facility] 07/30/17 21:06> Palmer/QRS: LAHB/LAFB <January,[facility] 07/30/17 21:06> Disposition Clinical Impression: Paroxysmal atrial fibrillation, Acute exacerbation of chronic obstructive airways disease, Renal failure as complication of care CHF (congestive heart failure) Qualifiers: Congestive heart failure type: systolic Congestive heart failure chronicity: acute on chronic Qualified Code(s): I50.23 - Acute on chronic systolic ( congestive) heart failure <January,[facility] 07/30/17 21:06> Disposition: 02 To [facility] Acute Care <[facility] 07/30/17 21:06> Condition: Improved <January,[facility] 07/30/17 21:06> Instructions: <January,[facility] 07/30/17 21:06> Prescriptions: No Action Carbidopa/Levodopa [Sinemet 25-100 mg Tablet] 1 tab PO TID #0 tab Celecoxib [Celebrex] 200 mg PO HS #0 cap Potassium Chloride 20 meq PO DAILY #0 Acetaminophen [Arthritis Pain Relief] 1,300 mg PO BID PRN PRN Reason: Pain B-Complex with Vitamin C [Super B with Vit C] 1 cap PO [id number] Docusate Sodium [Colace] 100 mg PO HS Bumetanide Tab [Bumex Tab] 1 mg PO BID Albuterol Sulfate [Proair Hfa] 2 puff IH Q6H PRN #0 PRN Reason: SHORTNESS OF AIR Gabapentin 600 mg PO HS #0 Ropinirole HCl 2 mg PO TID #0 Tramadol HCl 50 mg PO BID #0 tab Metformin [Glucophage] 500 mg PO DAILY Albuterol Neb (0.083%) [Proventil Neb (0.083%)] 2.5 mg AEROSOL PRN PRN PRN Reason: Shortness Of Air Carvedilol 25 mg PO BID <JanuarySam [facility] 07/30/17 21:06> Referrals: Shawn Smith DO [Family Provider] - <JanuarySam [facility] 07/30/17 21: 06> Forms: <JanuarySam [facility] 07/30/17 21:06> Time of Disposition: 20:52 <Mikayla Lobato 07/30/17 20:52> - Seen By: midlevel <Mikayla Lobato 07/30/17 20:52>
[2017-07-30] MEDS: NS 1,000 ML IV SCH (19:36)
[2017-07-30] MEDS ORDERED: SALINE FLUSH 10ml SYRINGE IV PRN (22:10)
--- NOTE | 2017-07-30 22:35 | History & Physical Report ---
History of Present Illness Date: 07/31/17 Chief complaint: SOB HPI: The pt presents to the Er due to SOB and cough with weakness that has been progressing over the past 5 days. He denies any fevers, chills, productive sputum, chest pain, change in daily weights, edema, abd pain, N/V/D/ change in diet or fluid intake. He states that he really "feels great". Review of Systems - Constitutional Constitutional: Present: as per HPI, weakness. Absent: anorexia, chills, night sweats, weight gain - Cardiovascular Cardiovascular: Absent: chest pain, edema - Respiratory Respiratory: Present: dyspnea. Absent: cough, hemoptysis, pain on inspiration - Gastrointestinal Gastrointestinal: Present: as per HPI [facility] Medical History (Last Updated 07/04/17 @ 12:18 by Asia Dejesus APRN) Mixed hyperlipidemia (Chronic Medical) Type 2 diabetes mellitus without complications (Chronic Medical) Atherosclerotic heart disease of [place] coronary artery without angina pectoris (Chronic Medical) Pre-syncope (Acute Medical) Multiple falls (Acute Medical) Congestive heart failure-systolic (Acute Medical) ICD (implantable cardioverter-defibrillator) in place (Acute Medical) Prostate cancer (Acute Medical) Anemia (Chronic Medical) Anxiety (Chronic Medical) COPD (chronic obstructive pulmonary disease) (Chronic Medical) GERD (gastroesophageal reflux disease) (Chronic Medical) HTN (hypertension) (Chronic Medical) Macular degeneration (Chronic Medical) JEANNA (obstructive sleep apnea) (Chronic Medical) Pacemaker (Chronic Medical) History of adenomatous polyp of colon (Resolved Medical) History of alcoholism (Resolved Medical) Atrial fibrillation with RVR (Inactive Medical) Cardiomyopathy (Inactive Medical) Surgical History: exploratory thoracotomy 11/1975. vasectomy 1979. TURP 1993. Prosate radiation 2005. Left Inguinal hernia repair 01/12/2014. Right Inguinal hernia repair 03/04/2014. Colonoscopy Tubulovillous adenoma at 10 piecemealed out 01/03/2017 [facility]. EGD esophagitis, no Martinez's 01/03/2017. Colonoscopy normal 03/04/2014 [facility]. Colonoscopy normal diverticulosis 2009 [facility]. Left heart cath no stents 12/07/2011. Hiatal hernia repair 1979. Right total knee replacement 02/28/1993. Left total knee replacement . Heart cath 03/11/1997 and 03/28/17. Colonoscopy 07/16/17. Family History: Family History (Last Updated 07/04/17 @ 12:23 by Asia Dejesus APRN) Father Diabetes mellitus HTN (hypertension) Mother Diabetes mellitus HTN (hypertension) Alcoholic/drug addict - Social History Smoking status: Former smoker Substance use type: does not use Alcohol intake: former (history alcohol abuse-alcohol free 29 years) Alcohol intake frequency: does not drink Does patient use chewing tobacco?: Yes (2 packs/days) Social history: PCP-Dr. Shawn Smith, full code, is alternate decision maker. Medications Home Medications Medication Instructions Recorded Confirmed Type Albuterol Sulfate [Proair Hfa] 2 puff IH Q6H PRN #0 01/09/14 07/30/17 History Gabapentin 600 mg PO HS #0 11/02/15 07/30/17 History Ropinirole HCl 2 mg PO TID #0 11/02/15 07/30/17 History Carbidopa/Levodopa [Sinemet 25-100 1 tab PO TID #0 tab 01/06/17 07/30/17 History mg Tablet] Celecoxib [Celebrex] 200 mg PO HS #0 cap 01/06/17 07/30/17 History Tramadol HCl 50 mg PO BID #0 tab 01/06/17 07/30/17 History Potassium Chloride 20 meq PO DAILY #0 01/17/17 07/30/17 History Acetaminophen [Arthritis Pain 1,300 mg PO BID PRN 03/28/17 07/30/17 History Relief] Metformin [Glucophage] 500 mg PO DAILY 04/30/17 07/30/17 History Albuterol Neb (0.083%) [Proventil 2.5 mg AEROSOL PRN PRN 05/25/17 07/30/17 History Neb (0.083%)] B-Complex with Vitamin C [Super B 1 cap PO [id number] 07/13/17 07/30/17 History with Vit C] Carvedilol 25 mg PO BID 07/13/17 07/30/17 History Bumetanide Tab [Bumex Tab] 1 mg PO BID 07/30/17 07/30/17 History Docusate Sodium [Colace] 100 mg PO HS 07/30/17 07/30/17 History Allergies Allergy/AdvReac Type Severity Reaction Status Date / Time prednisone Allergy Unknown ANXIOUS Verified 07/30/17 18:25 Corticosteroids Allergy Verified 07/30/17 18:25 (Glucocorticoids) Quinolones Allergy Verified 07/30/17 18:25 tetracycline Allergy Verified 07/30/17 18:25 dicyclomine AdvReac Severe "MAKES ME Verified 07/30/17 18:25 VERY NERVOUS AND JITTERY" aspirin AdvReac Unknown CAUSES GI Verified 07/30/17 18:25 BLEEDING ciprofloxacin AdvReac Unknown HYPERACTIVE Verified 07/30/17 18:25 Exam Vital Signs: Temperature 98.0 F 07/30/17 18:05 Pulse Rate 108 H 07/30/17 21:57 Respiratory Rate 22 07/30/17 21:57 Blood Pressure 89/67 07/30/17 21:57 Pulse Oximetry 99 07/30/17 21:57 - Constitutional Present: no acute distress, average body habitus - Routine HEENT Exam Head: Present: normocephalic - Routine Respiratory Exam Present: CTA bilaterally - Routine Cardiovascular Exam Present: RRR, murmur - Routine Abdominal Exam Present: soft, normoactive bowel sounds, non distended, non tender - Routine Extremities Exam Present: no edema, non tender Results - Labs CBC & Chem 7: 07/31/17 04:10 07/31/17 04:10 Assessment and Plan (1) Pre-syncope Current visit: Yes Status: Acute (2) Sepsis Current visit: Yes Status: Acute (3) Congestive heart failure Problem details: Chronic systolic-ejection fraction 20% Current visit: No Status: Acute Assessment and Plan: The pt appears very stable and is essentially without any symptoms or complaints during my interview. His LA is 3.4, we started him on IVF continuous drip but no boluses were given in ER due to pt having EF of 20% and asymptomatic. Will need to monitor farhan ,on telemetry, repeat labs in am Cory Bates M.D. 07/31/17 11:30 Dr. Monreal's note reviewed. Mr. Aviles interviewed and examined. Old records reviewed CC: Fall/presyncope HPI: Mr. Aviles is 76-year-old male well-known to the hospitalist service. He describes increased dyspnea for 5-6 days prior to hospitalization without cough , change in chronic exertional dyspnea, wheezing, sputum production, pleuritic pain, chest pain or palpitations, edema, fever, or chills. His weight is been stable. Reports he really didn't feel bad other than some minor increased shortness of breath that did not require interventions. Emergency room records however indicate he had been on CPAP all day prior to presenting to the emergency room-patient does not confirm this at present. Patient reports that he 's had a "cold" for about a week with a drippy nose, mild sore throat, and postnasal drainage. What triggered presentation to the emergency room yesterday was a fall at home. He was walking across the kitchen and his feet went out from under him. He fell backwards but specifically denies syncope, chest pain, palpitations, or his defibrillator firing. He was able to get all of and subsequently presented to the emergency room. Patient reports he's had a number of episodes similar to this that it feels like something hit him in the back of his knees and he simply goes down. In the ER a number of lab abnormalities were identified prompting hospitalization including a lactic acid of 3.4 and proBNP of 25,000. Chest x-ray did not demonstrate heart failure, patient was hemodynamically stable in the emergency room other than low-grade tachycardia ( atrial fibrillation), and was afebrile. Fluid bolus was withheld due to history of cardiomyopathy. PH/SH/FH: agree with that recorded above by Dr. Monreal with minor modifications to past history made above. ROS: 10 point review entirely negative other than positives noted in history of present illness. EXAM: General-NAD, alert, fluent speech. 98.6 119/78 90% room air HEENT-PERRL, EOMI without nystagmus, conjunctiva clear, sclera anicteric, conjugate gaze, facial structures symmetric, oropharynx clear, neck supple and without adenopathy Lungs-respirations nonlabored, good airflow, breath sounds clear other than minor crackles at the bases Cardiac-irregular rhythm, S1-S2, low-grade tachycardia, external neck veins distended Abd-obese, soft, nontender, bowel sounds present Ext-without edema or clubbing Skin-minor abrasions on the forearms but no evidence of cellulitis. Neuro-cranial nerves III through XII intact, MAEW, sensation intact 4 extremities Psych-in good spirits, calm, cooperative DATA: White count 9.2-differential unremarkable, hemoglobin 10.6 with MCV 94.1. Electrodes unremarkable, creatinine 1.3/BUN 46 UA unremarkable. Lactic acid 3.4-1.3-1.2 Chest x-ray reviewed by myself demonstrating cardiomegaly, left-sided pacemaker , no overt heart failure. A/P: Presyncope/fall Cardiomyopathy/chronic systolic CHF Dyspnea URI Elevated lactic acid Hypertension-history Diabetes, type II CKD, stage III Parkinson's Pacemaker will be interrogated to determine if there was preceding arrhythmia leading to patient's fall. Orthostatic vital signs to be obtained. Respiratory viral panel to be assessed-although lactic acid was elevated on presentation neither exam, history, or available data (UA, chest x-ray, white count, vital signs) suggest sepsis or underlying infection. Suspect lactic acid due to transient hypoperfusion associated with the presyncopal event. Resume home medications for cardiomyopathy and diabetes. Monitor Accu-Cheks. Converted to inpatient status due to complexity of presentation. Discussed with cardiology. DVT Prophylaxis: SCD's Resuscitation Status: Full Code Hospital Course Summary Disclaimer: The visit summary below is not to be considered part of the above Progress Note.
[2017-07-30] MEDS: CEFTRIAXONE 1 G in NS 100 ML IV SCH (23:10)
[2017-07-30] MEDS: HEPARIN SUB-Q 5,000 UNITS/0.5 ML INJECTION SQ SCH (23:10)
[2017-07-31] MEDS: NS 1,000 ML IV SCH ×2 (03:04→10:40)
--- NOTE | 2017-07-31 08:23 | XRay Report ---
INDICATION: cough, soa PROCEDURE: CHEST 2-VIEWS UPRIGHT (PA & LAT) Encounter: Initial COMPARISON: June 14, 2017 FINDINGS: Chest is stable with findings of emphysema and chronic infiltrates. No new or worsening airspace disease. No pleural effusion or pneumothorax. Cardiac silhouette remains enlarged. Left pacemaker. Mediastinal contours and pulmonary vascularity are stable. Impression: Stable but abnormal appearance of the chest. .
[2017-07-31] MEDS: HEPARIN SUB-Q 5,000 UNITS/0.5 ML INJECTION SQ SCH ×2 (08:55→22:23)
[2017-07-31] MEDS: INSULIN ASPART 100unit/ml INJECTION SQ PRN ×2 (11:00→17:24)
[2017-07-31] MEDS: ALBUTEROL 2.5mg/3ml (0.083%) NEB AEROSOL PRN ×2 (13:13→16:55)
[2017-07-31] MEDS: ROPINIROLE 2 MG TABLET PO SCH ×3 (13:28→22:21)
[2017-07-31] MEDS: METFORMIN 500 MG TABLET PO SCH (13:37)
[2017-07-31 15:48] VITALS: BMI 25.0
[2017-07-31] MEDS: CARVEDILOL 25 MG TABLET PO SCH (17:27)
[2017-07-31] MEDS ORDERED: METOCLOPRAMIDE 10mg/2ml INJECTION IVP PRN (17:36)
[2017-07-31] MEDS ORDERED: ALPRAZolam 0.5 MG TABLET PO PRN (17:38)
[2017-07-31] MEDS: SODIUM CL 3% INHAL.SOLN 15ml NEB AEROSOL SCH (17:47)
[2017-07-31] MEDS ORDERED: BUMETANIDE 1 MG TABLET PO ONE (19:02)
[2017-07-31] MEDS ORDERED: BUMETANIDE 1 MG TABLET PO SCH (21:00)
[2017-07-31] MEDS: TRAMADOL 50 MG TABLET PO SCH (22:20)
[2017-07-31] MEDS: GABAPENTIN 600 MG TABLET PO SCH (22:21)
[2017-08-01] MEDS: CEFTRIAXONE 1 G in NS 100 ML IV SCH (00:07)
[2017-08-01] MEDS ORDERED: FALL RISK - PHARMACY CONSULT XX ONE (03:53)
[2017-08-01] MEDS: ROPINIROLE 2 MG TABLET PO SCH ×3 (08:05→20:17)
[2017-08-01] MEDS: TRAMADOL 50 MG TABLET PO SCH ×2 (08:06→20:18)
[2017-08-01] MEDS: CARVEDILOL 25 MG TABLET PO SCH ×2 (08:06→16:44)
[2017-08-01] MEDS: METFORMIN 500 MG TABLET PO SCH (08:06)
[2017-08-01] MEDS: HEPARIN SUB-Q 5,000 UNITS/0.5 ML INJECTION SQ SCH ×2 (08:07→20:17)
[2017-08-01] MEDS: BUMETANIDE 1 MG TABLET PO SCH ×2 (08:10→14:31)
--- NOTE | 2017-08-01 08:51 | XRay Report ---
Indication: dyspnea PROCEDURE: XR chest 1V: Encounter: Initial Comparison: July 30, 2017 Findings: Increasing hazy groundglass type opacity in both lung.. Motion artifact. No pneumothorax. Small left pleural effusion is new. Cardiac silhouette is moderately enlarged but unchanged. Mediastinal contours are stable. Pulmonary vascularity is indistinct. Left pacemaker defibrillator. Impression: New moderate pulmonary edema, possibly due to CHF. .
[2017-08-01] MEDS: SODIUM CL 3% INHAL.SOLN 15ml NEB AEROSOL SCH ×2 (10:39→16:25)
[2017-08-01] MEDS: ALBUTEROL 2.5mg/3ml (0.083%) NEB AEROSOL PRN ×3 (10:43→20:44)
[2017-08-01] MEDS: INSULIN ASPART 100unit/ml INJECTION SQ PRN (15:46)
[2017-08-01] MEDS ORDERED: BENZONATATE 200 MG CAPSULE PO PRN (16:26)
[2017-08-01] MEDS: GABAPENTIN 600 MG TABLET PO SCH (20:17)
--- NOTE | 2017-08-01 22:09 | Progress Note ---
- Date 08/01/17 Subjective: Mr. Aviles was seen with his and reported that he had no trouble breathing overnight and was breathing comfortably this morning. He had minimal cough although had coughed up a small amount of sputum for culture yesterday. He denied chest pain, nausea, or lightheadedness. He was able to sleep flat. He later called me back to the room because he started coughing more and having difficulty breathing. He was receiving a breathing treatment at the time and had some faint scattered wheezes. Coughing episode occurred at approximately the same time this afternoon as the yesterday's event did. Chest pain denied. Objective Vital signs: Temperature 97.6 F 08/01/17 15:42 Pulse Rate 128 H 08/01/17 16:00 Respiratory Rate 18 08/01/17 20:44 Blood Pressure 128/74 08/01/17 15:42 Pulse Oximetry 94 08/01/17 16:25 I/O 3171/900 weight up 0.4 kg EXAM General-NAD, alert, fluent speech HEENT-conjugate gaze, conjunctiva clear Lungs-when initially seen the patient was sleeping supine on room air; later respirations were nonlabored with diminished breath sounds throughout but no wheezing or rhonchi; on third visit when patient was symptomatic he had faint scattered wheezes associated with coughing Cardiac-irregular rhythm, S1-S2 Abd-obese, soft, nontender Ext-without edema Neuro-MAEW Psych-calm, not panic with coughing episode this afternoon - Height/Weight/BMI: Height 1.68 m Weight 70.6 kg Body Mass Index 25.0 Results - Labs CBC & Chem 7: 08/01/17 10:55 08/01/17 10:55 Labs: Magnesium 2.1 [facility] [phone] Microbiology Results: Microbiology 08/01/17 11:15 Sputum, Expectorated Gram Stain - Final 08/01/17 11:15 Sputum, Expectorated Sputum Culture - Preliminary Culture Initiated - Results Pending First sputum 07/30 with moderate neutrophils, moderate gram-positive rods on Gram stain but heavy growth gram-negative erasto on preliminary culture report Second sputum 08/01 with many neutrophils, gram-positive cocci in chains; culture pending. - ABG Interpretation Attestation: I reviewed and interpreted this ABG. (compensated hypercarbia, mild hypoxia) ABG results: 08/01/17 11:22 ABG pH 7.460 H ABG pCO2 52 H ABG pO2 54 L ABG HCO3 37 H ABG Total CO2 38.6 H ABG O2 Saturation 89.0 L ABG Base Excess 11.3 H Assessment and Plan (1) Pre-syncope Current visit: Yes Status: Acute (2) Sepsis Current visit: Yes Status: Acute (3) Congestive heart failure Problem details: Chronic systolic-ejection fraction 20% Current visit: No Status: Acute Assessment and Plan: Impression: Presyncope/fall Cardiomyopathy/chronic systolic CHF Dyspnea URI/bronchitis Elevated lactic acid Hypertension-history Diabetes, type II CKD, stage III Parkinson's Plan: Telemetry continues to reveal atrial fibrillation with some rate variability but no higher grade ectopy. Pacemaker interrogation yesterday without worrisome findings to account for presyncope/fall. Home cardiac regimen resumed-patient reports urinating frequently all night, question accuracy of urine output reported. No clinical evidence of heart failure. On room air, lying flat. Sputum cultures with discordant results but both with significant white cells present, continue Rocephin pending further clarification. May be sputum plugging intermittently; today patient reports symptoms/cough improved with breathing treatment something anxiety precluded yesterday. Reassessed chest x-ray in a.m. Lengthy discussion with patient/ regarding difference between living will and DO NOT RESUSCITATE. At present he is undecided about what his advanced directive wishes are other than not wanting to be kept alive is a vegetable. Recommended he consider a living will and that he discuss his wishes with his who is his DPOA. DVT Prophylaxis: SQ Heparin Resuscitation Status: Full Code - Time spent with patient Time with patient PN: 50 minutes Coordination of Care: >50% of visit spent providing counseling/coordination of care Hospital Course Summary Disclaimer: The visit summary below is not to be considered part of the above Progress Note. Hospital Course: 07/30/17-07/31/17-admission A/P: Presyncope/fall Cardiomyopathy/chronic systolic CHF Dyspnea URI Elevated lactic acid Hypertension-history Diabetes, type II CKD, stage III Parkinson's Pacemaker will be interrogated to determine if there was preceding arrhythmia leading to patient's fall. Orthostatic vital signs to be obtained. Respiratory viral panel to be assessed-although lactic acid was elevated on presentation neither exam, history, or available data (UA, chest x-ray, white count, vital signs) suggest sepsis or underlying infection. Suspect lactic acid due to transient hypoperfusion associated with the presyncopal event. Resume home medications for cardiomyopathy and diabetes. Monitor Accu-Cheks. Converted to inpatient status due to complexity of presentation. Discussed with cardiology. 08/01/17 Telemetry continues to reveal atrial fibrillation with some rate variability but no higher grade ectopy. Pacemaker interrogation yesterday without worrisome findings to account for presyncope/fall. Home cardiac regimen resumed-patient reports urinating frequently all night, question accuracy of urine output reported. No clinical evidence of heart failure. On room air, lying flat. Sputum cultures with discordant results but both with significant white cells present, continue Rocephin pending further clarification. May be sputum plugging intermittently; today patient reports symptoms/cough improved with breathing treatment something anxiety precluded yesterday. Reassessed chest x-ray in a.m.
[2017-08-02] MEDS: CEFTRIAXONE 1 G in NS 100 ML IV SCH (00:27)
[2017-08-02] MEDS: BUMETANIDE 1 MG TABLET PO SCH ×2 (06:16→14:31)
[2017-08-02] MEDS: ALBUTEROL 2.5mg/3ml (0.083%) NEB AEROSOL PRN (08:23)
[2017-08-02] MEDS: SODIUM CL 3% INHAL.SOLN 15ml NEB AEROSOL SCH (08:23)
[2017-08-02 08:47] VITALS: O2SAT 93
--- NOTE | 2017-08-02 08:57 | XRay Report ---
INDICATION: CHF/bronchitis PROCEDURE: CHEST 2-VIEWS UPRIGHT (PA & LAT) Encounter: Initial COMPARISON: July 31, 2017 FINDINGS: Aeration of the lungs has slightly improved. Trace pleural effusions are stable. No pneumothorax. No new or worsening airspace consolidation. Heart size and mediastinal contours are stable. Pulmonary vascularity is slightly enlarged. Left pacemaker. Impression: Improving aeration of the lungs and decreasing vascular congestion. .
[2017-08-02] MEDS: TRAMADOL 50 MG TABLET PO SCH (09:57)
[2017-08-02] MEDS: ROPINIROLE 2 MG TABLET PO SCH ×2 (09:57→14:31)
[2017-08-02] MEDS: METFORMIN 500 MG TABLET PO SCH (09:57)
[2017-08-02] MEDS: HEPARIN SUB-Q 5,000 UNITS/0.5 ML INJECTION SQ SCH (09:58)
[2017-08-02] MEDS: CARVEDILOL 25 MG TABLET PO SCH (09:58)
[2017-08-02] MEDS: INSULIN ASPART 100unit/ml INJECTION SQ PRN (11:36)
[2017-08-02] MEDS ORDERED: LEVOFLOXACIN 750 MG TABLET PO SCH (12:22)
--- NOTE | 2017-08-02 17:16 | Discharge Summary ---
Discharge Information Date of admission: 07/31/17 09:21 Anticipated date of discharge: 08/02/17 Attending Physician: Mariah Bates MD Primary care physician: Shawn Smith, - Discharge Diagnosis (1) Pre-syncope Status: Acute (2) Bronchitis Status: Acute (3) Sepsis Status: Acute (4) Congestive heart failure Status: Chronic (5) Bronchiectasis Status: Acute Presyncope/fall Pseudomonas bronchitis Bronchiectasis Cardiomyopathy/chronic systolic CHF Elevated lactic acid Hypertension-history Diabetes, type II CKD, stage III Parkinson's - Procedures Procedures: Pacemaker interrogation-no worrisome arrhythmias, atrial fibrillation with some tachycardia - Laboratory Labs: On admission white count 8.0, hemoglobin 11.2, BUN 55, creatinine 1.4, liver enzymes normal other than trivial elevation of alk phosphatase at 129. ProBNP 25,200, troponin < 0.012 Lactic acid 3.4 dropping quickly to 1.3. 08/01/17 10:55 08/02/17 04:38 - Microbiology Respiratory viral panel on 07/31/17 was negative Blood cultures 2 in 07/30/17 negative after 2-3 days 08/01/17 11:15 Sputum, Expectorated Gram Stain -many WBCs, gram-positive cocci in chains 08/01/17 11:15 Sputum, Expectorated Sputum Culture - Preliminary Early growth not otherwise identified 07/30/17 sputum culture positive for heavy growth pseudomonas aeruginosa sensitive to all tested antipseudomonal antibiotics, moderate growth staph aureus - Radiology Radiology: Chest x-ray on admission demonstrated findings of emphysema and chronic infiltrates but no evidence of acute airspace disease, pleural effusion, or CHF. Follow-up portable chest x-ray on 07/30 demonstrated persistent cardiomegaly and mild increased CHF. Two-view chest x-ray on date of discharge (08/02) demonstrated cardiomegaly, improved aeration, trace pleural effusions, and decreased vascular congestion. History of Present Illness HPI: Mr. Aviles is 76-year-old male well-known to the hospitalist service. He describes increased dyspnea for 5-6 days prior to hospitalization without cough , change in chronic exertional dyspnea, wheezing, sputum production, pleuritic pain, chest pain or palpitations, edema, fever, or chills. His weight is been stable. Reports he really didn't feel bad other than some minor increased shortness of breath that did not require interventions. Emergency room records however indicate he had been on CPAP all day prior to presenting to the emergency room-patient does not confirm this at present. Patient reports that he 's had a "cold" for about a week with a drippy nose, mild sore throat, and postnasal drainage. What triggered presentation to the emergency room yesterday was a fall at home. He was walking across the kitchen and his feet went out from under him. He fell backwards but specifically denies syncope, chest pain, palpitations, or his defibrillator firing. He was able to get all of and subsequently presented to the emergency room. Patient reports he's had a number of episodes similar to this that it feels like something hit him in the back of his knees and he simply goes down. In the ER a number of lab abnormalities were identified prompting hospitalization including a lactic acid of 3.4 and proBNP of 25,000. Chest x-ray did not demonstrate heart failure, patient was hemodynamically stable in the emergency room other than low-grade tachycardia ( atrial fibrillation), and was afebrile. Fluid bolus was withheld due to history of cardiomyopathy. Hospital Course This is a general summary of the patient's hospital course. For more details refer to the complete medical record. Hospital course: Impression: Presyncope/fall Pseudomonas bronchitis Bronchiectasis Cardiomyopathy/chronic systolic CHF Dyspnea-episodic Elevated lactic acid, transient Hypertension-history Diabetes, type II CKD, stage III Parkinson's Hospital course: Mr. Aviles was hospitalized after a fall/presyncopal event at home. He had preceding episodic dyspnea but was breathing comfortably on arrival to the medical unit. Notably lactic acid was elevated in the emergency room although he was hemodynamically stable. He received some fluid resuscitation without fluid bolus due to cardiomyopathy and was likely slightly prerenal on presentation based on elevated BUN from baseline. Follow-up chest x-ray demonstrated slightly increased vascular markings but the patient did not require supplemental oxygen for hypoxia at any point during his hospital stay and was comfortable supine sleeping. He had 2 events where he became dyspneic while coughing; these were associated with some minor wheezing. He appeared panicked during the first and was agitated. Alprazolam was required in conjunction with the breathing treatment to relieve symptoms with this event. He was not hypoxic however and no sputum was produced although he described a sensation of sputum in his airway that prevented him from breathing. The second event occurred approximately 24 hours later and was not as intense. This event was relieved with breathing treatment alone. Sputum culture was positive for Pseudomonas and some staph aureus (home care nurse reports that he has been colonized with staph for some time). Review of old chest CT scans confirmed suspicion that the patient has some underlying bronchiectasis putting him at risk for pseudomonal bronchitis. Based on sensitivities treatment was initiated with Levaquin with the first dose administered while hospitalized due to history of hyperactivity with Cipro in the past. Patient tolerated Levaquin without difficulty and will be discharged with 10 day course of Levaquin. He is advised to continue using breathing treatments as needed and was given a prescription for Tessalon Perles if anything is needed for cough. Lactic acidosis cleared quickly and I suspect was the result of mild hypoperfusion with the presyncopal event at home and did not reflect bacterial infection. Evaluation of the fall/presyncope included pacemaker interrogation demonstrating no pacemaker failure or arrhythmias other than atrial fibrillation with episodes of RVR. The patient was modestly tachycardic the first 1-2 days of the hospitalization after which heart rate generally stabilized. Home medications for his heart failure were resumed on admission without supplemental diuretics administered. No changes in chronic medications were made. On the date of discharge the patient reported that he generally felt well. He ambulated in the halls with therapy and became somewhat short of breath doing so but was able to ambulate 360 feet twice taking a single break. He denied significant cough, chest pain, or lightheadedness. He continues to sleep in a supine position on room air. Respirations are nonlabored with decreased breath sounds throughout but breath sounds are clear other than minor crackles at the right base. There is trace edema the dorsal surface of the feet. His home health nurse visited the hospital to determine if other changes in his regimen need be made and asked about outpatient cardiac rehabilitation. Information was provided to the patient and his regarding the program at [facility]. Patient is asked to follow-up with Dr. Smith in approximately 1 week for reassessment. He's additionally asked to use breathing treatments per his nebulizer if he has episodes where he feels he can't catch his breath. Time spent with patient: discharge greater than 30 minutes Discharge Plan - Med Rec/Dispo Referrals/Follow Up: Shawn Smith DO [Family Provider] - 1 Week [facility] Instructions: [facility] Congestive Heart Failure, Acute Bronchitis (GEN), Bronchiectasis (DC) Prescriptions: New Benzonatate [Tessalon Perles] 200 mg PO TID PRN #15 cap PRN Reason: Cough Levofloxacin [Levaquin] 500 mg PO DAILY #10 tab Continue Carbidopa/Levodopa [Sinemet 25-100 mg Tablet] 1 tab PO TID #0 tab Celecoxib [Celebrex] 200 mg PO HS #0 cap Potassium Chloride 20 meq PO DAILY #0 Acetaminophen [Arthritis Pain Relief] 1,300 mg PO BID PRN PRN Reason: Pain B-Complex with Vitamin C [Super B with Vit C] 1 cap PO [id number] Docusate Sodium [Colace] 100 mg PO HS Bumetanide Tab [Bumex Tab] 1 mg PO BID Albuterol Sulfate [Proair Hfa] 2 puff IH Q6H PRN #0 PRN Reason: SHORTNESS OF AIR Gabapentin 600 mg PO HS #0 Ropinirole HCl 2 mg PO TID #0 Tramadol HCl 50 mg PO BID #0 tab Metformin [Glucophage] 500 mg PO DAILY Albuterol Neb (0.083%) [Proventil Neb (0.083%)] 2.5 mg AEROSOL PRN PRN PRN Reason: Shortness Of Air Carvedilol 25 mg PO BID - Disposition [facility] - Dismissal Complete Discharge Instructions are:: Complete
[2017-08-02 19:40] VITALS: BP 101/62; PULSE 83; RESP 18; TEMP 97.8
== END 2017-08-02 19:30 | disposition home health service (06) | DRG 872 ==
LOC: ED 18:05 → MED 18:05
PROVIDERS: ADMIT Internal Medicine; ATTEND Internal Medicine

== ENCOUNTER 2017-11-09 21:19 | Inpatient (IN) ==
[2017-11-09] MEDS ORDERED: BUDESONIDE INH.SOLN 0.5mg/2ml NEB AEROSOL ONE (21:44)
[2017-11-09] MEDS ORDERED: ALBUTEROL/IPRATROPIUM 2.5mg-0.5mg/3ml NEB AEROSOL ONE (21:44)
--- NOTE | 2017-11-09 21:47 | Emergency Department Report ---
URI/Sore Throat HPI - General Chief Complaint: Upper Respiratory Infection Stated Complaint: diff breathing, soa, fever Time Seen by Provider: 11/09/17 21:27 Source: patient Mode of arrival: wheelchair Limitations: no limitations - History of Present Illness HPI Narrative: Patient is a 77-year-old male brought to the ER for evaluation of productive cough and dyspnea. Patient was seen in the emergency room earlier in the week on 11/06. He was given nebulizer treatments and discharged home. He did see Dr. Hinojosa on Tuesday 11/07. At that time Cardizem and Bumex doses were both increased. Since that time, his breathing has worsened, today he started having a fever of 101 along with productive coughing. MD Complaint: fever, cough, nasal congestion Duration: constant Severity: mild Relieving factors: nothing Exacerbating factors: nothing Description of mucous: yellow Associated symptoms: fever, chills, rhinorrhea, cough Treatments prior to arrival: other (nebulizers) - Related Data Home Medications Medication Instructions Recorded Confirmed Albuterol Sulfate [Proair Hfa] 2 puff IH Q6H PRN #0 01/09/14 11/09/17 Gabapentin 600 mg PO HS #0 11/02/15 11/09/17 Acetaminophen [Arthritis Pain 1,300 mg PO BID PRN 03/28/17 11/09/17 Relief] Metformin [Glucophage] 500 mg PO DAILY 04/30/17 11/09/17 Albuterol Neb (0.083%) [Proventil 2.5 mg AEROSOL PRN PRN 05/25/17 11/09/17 Neb (0.083%)] B-Complex with Vitamin C [Super B 1 cap PO [id number] 07/13/17 11/09/17 with Vit C] Carvedilol 25 mg PO BID 07/13/17 11/09/17 Bumetanide Tab [Bumex 1 mg Tab] 2 mg PO BID 07/30/17 11/09/17 Docusate Sodium [Colace] 200 mg PO HS 07/30/17 11/09/17 Lisinopril [Prinivil] 2.5 mg PO DAILY 08/14/17 11/09/17 Silver Sulfadiazine [Silvadene] 1 applicatio TP DAILY 12/12/17 03/09/18 Carbidopa/Levodopa 1 tab PO TID 11/06/17 11/09/17 [Carbidopa-Levodopa 25-100 Tab] Potassium Chloride [K-DUR 20 mEq 20 meq PO DAILY 11/06/17 11/09/17 Tablet] Ropinirole [Requip] 2 mg PO TID 11/06/17 11/09/17 Tramadol [Ultram] 50 mg PO HS 11/06/17 11/09/17 dilTIAZem HCl [Diltiazem ER] 120 mg PO DAILY 11/09/17 11/09/17 Allergies Allergy/AdvReac Type Severity Reaction Status Date / Time prednisone Allergy Unknown ANXIOUS Verified 11/06/17 13:18 Corticosteroids Allergy Verified 11/06/17 13:18 (Glucocorticoids) Quinolones Allergy Verified 11/06/17 13:18 tetracycline Allergy Verified 11/06/17 13:18 dicyclomine AdvReac Severe "MAKES ME Verified 11/06/17 13:18 VERY NERVOUS AND JITTERY" aspirin AdvReac Unknown CAUSES GI Verified 11/06/17 13:18 BLEEDING ciprofloxacin AdvReac Unknown HYPERACTIVE Verified 11/06/17 13:18 Review of Systems All systems: reviewed and negative except as stated ENT: Reports: congestion Respiratory: Reports: cough, dyspnea, wheezes PFSH Patient Stated Medical History Dementia Yes Migraine Yes Peripheral Neuropathy Yes Parkinson's Disease Yes Cataracts Yes Dental Problems Yes: NO TEETH Hearing Loss Yes Other HEENT Yes: WEARS GLASSES Angina Yes Cardiac Arrhythmia Yes: AFIB,PVC,V-TACH Congestive Heart Failure Yes: EF 20 % Coronary Artery Disease Yes Hypertension Yes Myocardial Infarction No Rheumatic Fever Yes Valvular Heart Disease Yes Asthma Yes Chronic Obstructive Pulmonary Yes Disease (COPD) Pneumonia Yes Sleep Apnea Yes Diabetes Mellitus Type 2 Yes Gastroesophageal Reflux Yes Disease Hiatal Hernia Yes Hx Benign Prostatic Yes Hyperplasia Hx Incontinence Yes Hx Urinary Tract Infection Yes Other Yes: PROSTATE CA Anemia Yes Osteoarthritis Yes Other Musculoskeletal Yes: RLS, Parkinson's, dimentia, and presyncopal episode Shingles Yes Other Infectious Yes: UNKNOWN LUNG INFECTION Blood Transfusions Yes: NO PROBLEMS Other Yes: RADATION Depression Yes Clinic Medical History (Last Updated 07/04/17 @ 12:18 by Asia Dejesus APRN) Prostate cancer (Acute Medical) Anemia (Chronic Medical) Anxiety (Chronic Medical) CHF (congestive heart failure) (Chronic Medical) COPD (chronic obstructive pulmonary disease) (Chronic Medical) Depression (Chronic Medical) Diabetes mellitus (Chronic Medical) GERD (gastroesophageal reflux disease) (Chronic Medical) HTN (hypertension) (Chronic Medical) Macular degeneration (Chronic Medical) JEANNA (obstructive sleep apnea) (Chronic Medical) Pacemaker (Chronic Medical) History of adenomatous polyp of colon (Resolved Medical) History of alcoholism (Resolved Medical) Surgical History: exploratory thoracotomy 11/1975. vasectomy 1979. TURP 1993. Prosate radiation 2005. Left Inguinal hernia repair 01/12/2014. Right Inguinal hernia repair 03/04/2014. Colonoscopy Tubulovillous adenoma at 10 piecemealed out 01/03/2017 [facility]. EGD esophagitis, no Martinez's 01/03/2017. Colonoscopy normal 03/04/2014 [facility]. Colonoscopy normal diverticulosis 2009 [facility]. Left heart cath no stents 12/07/2011. Hiatal hernia repair 1979. Right total knee replacement 02/28/1993. Left total knee replacement . Heart cath 03/11/1997 and 03/28/17. Colonoscopy 07/16/17. Family History: Family History (Last Updated 07/04/17 @ 12:23 by Asia Dejesus APRN) Father Diabetes mellitus HTN (hypertension) Mother Diabetes mellitus HTN (hypertension) - Social History Smoking status: Former smoker Substance use type: does not use Alcohol intake: former (history alcohol abuse-alcohol free 29 years) Alcohol intake frequency: does not drink Housing: house Household members: spouse Current occupational status: disabled Current occupational exposures/hazards: No Does patient use chewing tobacco?: Yes (2 packs/days) Current residence: Apartment/Private Home Course Vital Signs Temperature 98.6 F 11/09/17 21:30 Pulse Rate 109 H 11/09/17 21:30 Respiratory Rate 20 11/09/17 21:30 Blood Pressure 117/61 11/09/17 21:30 Pulse Oximetry 91 11/09/17 21:30 Temperature 98.6 F 11/09/17 21:30 Pulse Rate 90 11/09/17 22:45 Respiratory Rate 20 11/09/17 22:45 Blood Pressure 113/60 11/09/17 21:45 Pulse Oximetry 91 11/09/17 22:45 Upper Respiratory Infection - MDM Narrative Medical decision making narrative: Labs reviewed- BNP- >30,000. Baseline appears to be 8,000-10,000. Despite nebulizers breath sounds continue to be wet. suspect patient has had an acute on chronic flare of congestive heart failure and is wet/fluid overloaded. Cardiovascular however intravascularly he is dehydrated. Low Voltage Electrician elevated to 1.9. Baseline appears to be 1.0. Spoke with Dr Kenia Lux- tele hospitalist. She accepts patient for inpatient admission. Plan of care discussed with patient and . - Differential Diagnosis Differential diagnosis: Likely: upper respiratory infection, sinusitis, viral infection, bronchitis, influenza, pharyngitis - Medical Records Attestation: I reviewed the patient's medical records. - Lab Data Attestation: I reviewed the patient's lab results. Result diagrams: 11/09/17 22:04 11/09/17 22:33 Lab Results 11/09/17 11/09/17 11/09/17 Range/Units 22:04 22:05 22:33 WBC 8.8 (4.5-11.0) T/MM3 RBC 3.91 L (4.50-5.90) M/MM3 Hgb 11.9 L (13.5-17.5) GM/DL Hct 37.0 L (41-53) % MCV 94.6 (80-100) UM3 MCH 30.4 (26-34) UUG MCHC 32.2 (31-37) GM/DL RDW Std Deviation 53.5 H (36.9-50.2) FL Plt Count 172 (130-400) T/MM3 MPV 11.3 (9.4-12.4) UM3 Immature Gran % (Auto) 0.2 (0.0-0.5) % Neut % (Auto) 69.6 H (33-66) % Lymph % (Auto) 16.5 L (23-45) % [place] % (Auto) 11.5 H (0-9.0) % Eos % (Auto) 1.9 (0-4) % Baso % (Auto) 0.3 (0-2) % Neut # (Auto) 6.1 (1.8-7.7) T/MM3 Lymph # (Auto) 1.5 (1-4.8) T/MM3 [place] # (Auto) 1.0 H (0-0.8) T/MM3 Eos # (Auto) 0.2 (0-0.5) T/MM3 Baso # (Auto) 0.0 (0-0.2) T/MM3 Abs Immat Gran (auto) 0.02 (0.00-0.03) T/MM3 Turbidity < 20 (0-20) Sodium 147 H (134-144) MEQ/L Potassium 3.7 (3.6-5) MEQ/L Chloride 98 (98-107) MEQ/L Carbon Dioxide 36 H (22-30) MEQ/L Anion Gap 13 (5-15) MEQ/L BUN 53.0 H* (9-20) MG/DL Creatinine 1.9 H (0.8-1.5) mg/dL GFR Calculation 34 BUN/Creatinine Ratio 28 H (6-26) RATIO Glucose 133 H (75-110) MG/DL Calculated Osmolality 298 H (261-280) MOSM/KG Calcium 8.9 (8.4-10.2) MG/DL Icterus Index < 2 (0-7) NT-Pro-B Natriuret Pep 28782 H (0-175) pg/mL Plasma Lactate 1.2 (0.6-2.2) MMOL/L Specimen Hemolysis < 15 (0-25) Influenza Type A (PCR) Negative (Negative) Influenza Type B (PCR) Negative (Negative) - Radiology Data Attestation: I reviewed the patient's radiology results. Disposition Clinical Impression: CHF (congestive heart failure) Qualifiers: Heart failure type: unspecified Heart failure chronicity: acute on chronic Qualified Code(s): I50.9 - Heart failure, unspecified Disposition: 02 To [facility] [place] Acute Care Condition: Stable Time of Disposition: 23:00 - Seen By: ines
[2017-11-09] MEDS ORDERED: DEXAMETHASONE 4 MG/ML INJECTION IVP ONE (22:15)
[2017-11-09] MEDS: SALINE FLUSH 10ml SYRINGE IVF PRN (22:38)
[2017-11-09] MEDS ORDERED: CONTAINER EMPTY IV ONE (23:59)
[2017-11-09] MEDS ORDERED: ALBUMIN HUMAN IV ONE (23:59)
--- NOTE | 2017-11-10 00:06 | History & Physical Report ---
History of Present Illness Date: 11/10/17 Chief complaint: SOA HPI: 77 yo M with PMH of COPD and CHF presented to the ED with reports of productive cough and SOA. Patient reports that since last week he has had cough with increased sputum production, dyspnea and upset stomach. Patient was seen in the emergency room earlier in the week on 11/06. He was given nebulizer treatments and discharged home. He did see Dr. Hinojosa on Tuesday 11/07. At that time Cardizem and Bumex doses were both increased. Since that time, his breathing has worsened, today he started having a fever of 101 along with productive coughing. He had a very elevated BNP in ED he was admitted for further evaluation and treatment. Review of Systems All systems PM: 10-point ROS was reviewed, no additional remarkable complaints except Past Medical History Clinic Medical History (Last Updated 07/04/17 @ 12:18 by Asia Dejesus APRN) CHF (congestive heart failure) (Chronic Medical) Prostate cancer (Acute Medical) Anemia (Chronic Medical) Anxiety (Chronic Medical) COPD (chronic obstructive pulmonary disease) (Chronic Medical) Depression (Chronic Medical) Diabetes mellitus (Chronic Medical) GERD (gastroesophageal reflux disease) (Chronic Medical) HTN (hypertension) (Chronic Medical) Macular degeneration (Chronic Medical) JEANNA (obstructive sleep apnea) (Chronic Medical) Pacemaker (Chronic Medical) History of adenomatous polyp of colon (Resolved Medical) History of alcoholism (Resolved Medical) Surgical History: exploratory thoracotomy 11/1975. vasectomy 1979. TURP 1993. Prosate radiation 2005. Left Inguinal hernia repair 01/12/2014. Right Inguinal hernia repair 03/04/2014. Colonoscopy Tubulovillous adenoma at 10 piecemealed out 01/03/2017 [facility]. EGD esophagitis, no Martinez's 01/03/2017. Colonoscopy normal 03/04/2014 [facility]. Colonoscopy normal diverticulosis 2009 [facility]. Left heart cath no stents 12/07/2011. Hiatal hernia repair 1979. Right total knee replacement 02/28/1993. Left total knee replacement . Heart cath 03/11/1997 and 03/28/17. Colonoscopy 07/16/17. Family History: Family History (Last Updated 07/04/17 @ 12:23 by Asia L Dejesus, [employer]) Father Diabetes mellitus HTN (hypertension) Mother Diabetes mellitus HTN (hypertension) Family History Updates: reviewed - Social History Smoking status: Former smoker Does patient use chewing tobacco?: Yes (2 packs/days) Current residence: Apartment/Private Home Medications Home Medications Medication Instructions Recorded Confirmed Type Albuterol Sulfate [Proair Hfa] 2 puff IH Q6H PRN #0 01/09/14 11/09/17 History Gabapentin 600 mg PO HS #0 11/02/15 11/09/17 History Acetaminophen [Arthritis Pain 1,300 mg PO BID PRN 03/28/17 11/09/17 History Relief] Metformin [Glucophage] 500 mg PO DAILY 04/30/17 11/09/17 History Albuterol Neb (0.083%) [Proventil 2.5 mg AEROSOL PRN PRN 05/25/17 11/09/17 History Neb (0.083%)] B-Complex with Vitamin C [Super B 1 cap PO [id number] 07/13/17 11/09/17 History with Vit C] Carvedilol 25 mg PO BID 07/13/17 11/09/17 History Bumetanide Tab [Bumex 1 mg Tab] 2 mg PO BID 07/30/17 11/09/17 History Docusate Sodium [Colace] 200 mg PO HS 07/30/17 11/09/17 History Lisinopril [Prinivil] 2.5 mg PO DAILY 08/14/17 11/09/17 History Silver Sulfadiazine [Silvadene] 1 applicatio TP DAILY 08/14/17 11/09/17 History Carbidopa/Levodopa 1 tab PO TID 11/06/17 11/09/17 History [Carbidopa-Levodopa 25-100 Tab] Potassium Chloride [K-DUR 20 mEq 20 meq PO DAILY 11/06/17 11/09/17 History Tablet] Ropinirole [Requip] 2 mg PO TID 11/06/17 11/09/17 History Tramadol [Ultram] 50 mg PO HS 11/06/17 11/09/17 History dilTIAZem HCl [Diltiazem ER] 120 mg PO DAILY 11/09/17 11/09/17 History Allergies Allergy/AdvReac Type Severity Reaction Status Date / Time prednisone Allergy Unknown ANXIOUS Verified 03/06/18 13:18 Corticosteroids Allergy Verified 11/06/17 13:18 (Glucocorticoids) Quinolones Allergy Verified 11/06/17 13:18 tetracycline Allergy Verified 11/06/17 13:18 dicyclomine AdvReac Severe "MAKES ME Verified 11/06/17 13:18 VERY NERVOUS AND JITTERY" aspirin AdvReac Unknown CAUSES GI Verified 11/06/17 13:18 BLEEDING ciprofloxacin AdvReac Unknown HYPERACTIVE Verified 11/06/17 13:18 Exam Vital Signs: Temperature 98.6 F 11/09/17 21:30 Pulse Rate 90 11/09/17 23:31 Respiratory Rate 20 11/09/17 23:31 Blood Pressure 113/60 11/09/17 21:45 Pulse Oximetry 92 11/09/17 23:31 Height/Weight/BMI: Height 1.65 m Weight 68.4 kg Body Mass Index 25.0 - Constitutional Present: well nourished, well developed - Routine Respiratory Exam Present: wheezes, crackles - Routine Cardiovascular Exam Present: RRR. Absent: murmur - Routine Abdominal Exam Present: soft, normoactive bowel sounds, non distended. Absent: tenderness - Routine Extremities Exam Present: normal capillary refill - Routine Skin Exam Present: dry, warm - Routine Neurological Exam Present: alert, oriented X3, CN II-XII intact - Routine Psychiatric Exam Present: normal affect Results - Labs CBC & Chem 7: 11/09/17 22:04 11/09/17 22:33 Assessment and Plan (1) Bronchitis Current visit: No Status: Acute (2) Acute on chronic systolic (congestive) heart failure Current visit: No Status: Acute Assessment and Plan: patient admitted. Given breathing TX and steroids in the ED, this did not help his symptoms. Will give bumex 1mg IV and albumin. start azithromycin and check sputum CX. Dr. Hinojosa consulted on patient's request. DVT Prophylaxis: SCD's Resuscitation Status: Full Code - Physician Narrative Narrative: Date: 11/10/17 Time: 0003 Hospital Course Summary Disclaimer: The visit summary below is not to be considered part of the above Progress Note.
[2017-11-10] MEDS: AZITHROMYCIN 500 MG TABLET PO SCH ×3 (01:08→21:32)
[2017-11-10] MEDS: ROPINIROLE 2 MG TABLET PO SCH ×4 (01:09→21:33)
[2017-11-10] MEDS: SALINE FLUSH 10ml SYRINGE IVF PRN ×2 (01:10→17:55)
[2017-11-10] MEDS ORDERED: DOCUSATE SODIUM 100 MG CAPSULE PO SCH (09:00)
--- NOTE | 2017-11-10 09:36 | Cardiology Consult Note ---
<MorroAnnmarie quintero Juan - Last Filed: 11/11/17 14:27> History of Present Illness Consult date: 11/10/17 Requesting physician: Amarilis Guerrero Consult reason: congestive heart failure, known to you Chief complaint: dyspnea History of present illness: Mr. Aviles is a 77-year-old gentleman who is well known to Dr. Hinojosa who has a history of cardiomyopathy with EF of 30% or less, CAD, Atrial fibrillation and frequent PVCs, valvular disease, HTN, HLD and DM. He presented to the ED with chief complaint of dyspnea, cough and fever. Upon exam he has a cough, course lungs sounds throughout and reports feeling SOA. His paged me Sunday evening to reports his imminent presentation to the ED. He was admitted for CHF and COPD exacerbation. Review of Systems - Constitutional Constitutional: Present: fever(s), weakness, weight gain - EENMT Mouth/Throat: Absent: changes in swallowing - Cardiovascular Cardiovascular: Present: orthopnea. Absent: chest pain Rhythm: Present: abnormal rhythm Vascular: Absent: pedal edema - Respiratory Respiratory: Present: cough, dyspnea, dyspnea on exertion, wheezing, chest congestion - Gastrointestinal Gastrointestinal: Absent: abdominal pain, diarrhea - Musculoskeletal Musculoskeletal: Present: abnormal gait - Integumentary/Breasts Integumentary: Absent: lesions, rash - Neurological Neurological: Present: dizziness - Psychiatric Psychiatric: Absent: behavioral changes PFSH Patient Stated Medical History Dementia Yes Migraine Yes Peripheral Neuropathy Yes Parkinson's Disease Yes Cataracts Yes Dental Problems Yes: NO TEETH Hearing Loss Yes Other HEENT Yes: WEARS GLASSES Angina Yes Cardiac Arrhythmia Yes: AFIB,PVC,V-TACH Congestive Heart Failure Yes: EF 20 % Coronary Artery Disease Yes Hypertension Yes Myocardial Infarction No Rheumatic Fever Yes Valvular Heart Disease Yes Asthma Yes Chronic Obstructive Pulmonary Yes Disease (COPD) Pneumonia Yes Sleep Apnea Yes Diabetes Mellitus Type 2 Yes Gastroesophageal Reflux Yes Disease Hiatal Hernia Yes Hx Benign Prostatic Yes Hyperplasia Hx Incontinence Yes Hx Urinary Tract Infection Yes Other Yes: PROSTATE CA Anemia Yes Osteoarthritis Yes Other Musculoskeletal Yes: RLS, Parkinson's, dimentia, and presyncopal episode Shingles Yes Other Infectious Yes: UNKNOWN LUNG INFECTION Blood Transfusions Yes: NO PROBLEMS Other Yes: RADATION Depression Yes Clinic Medical History (Last Updated 07/04/17 @ 12:18 by Asia Dejesus APRN) CHF (congestive heart failure) (Chronic Medical) Prostate cancer (Acute Medical) Anemia (Chronic Medical) Anxiety (Chronic Medical) COPD (chronic obstructive pulmonary disease) (Chronic Medical) Depression (Chronic Medical) Diabetes mellitus (Chronic Medical) GERD (gastroesophageal reflux disease) (Chronic Medical) HTN (hypertension) (Chronic Medical) Macular degeneration (Chronic Medical) JEANNA (obstructive sleep apnea) (Chronic Medical) Pacemaker (Chronic Medical) History of adenomatous polyp of colon (Resolved Medical) History of alcoholism (Resolved Medical) Surgical History: exploratory thoracotomy 11/1975. vasectomy 1979. TURP 1993. Prosate radiation 2005. Left Inguinal hernia repair 01/12/2014. Right Inguinal hernia repair 03/04/2014. Colonoscopy Tubulovillous adenoma at 9 piecemealed out 01/03/2017 [facility]. EGD esophagitis, no Martinez's 01/03/2017. Colonoscopy normal 03/04/2014 [facility]. Colonoscopy normal diverticulosis 2009 [facility]. Left heart cath no stents 12/07/2011. Hiatal hernia repair 1979. Right total knee replacement 02/28/1993. Left total knee replacement . Heart cath 03/11/1997 and 03/28/17. Colonoscopy 07/16/17. Family History: Family History (Last Updated 07/04/17 @ 12:23 by Asia Dejesus APRN) Father Diabetes mellitus HTN (hypertension) Mother Diabetes mellitus HTN (hypertension) Family History Updates: reviewed - Social History Smoking status: Former smoker Substance use type: does not use Alcohol intake: former (history alcohol abuse-alcohol free 29 years) Alcohol intake frequency: does not drink Housing: house Household members: spouse Current occupational status: disabled Current occupational exposures/hazards: No Does patient use chewing tobacco?: Yes (2 packs/days) Current residence: Apartment/Private Home Medications Home Medications Medication Instructions Recorded Confirmed Type Albuterol Sulfate [Proair Hfa] 2 puff IH Q6H PRN #0 01/09/14 11/09/17 History Gabapentin 600 mg PO HS #0 11/02/15 11/09/17 History Acetaminophen [Arthritis Pain 1,300 mg PO BID PRN 03/28/17 11/09/17 History Relief] Metformin [Glucophage] 500 mg PO DAILY 04/30/17 11/09/17 History Albuterol Neb (0.083%) [Proventil 2.5 mg AEROSOL PRN PRN 05/25/17 11/09/17 History Neb (0.083%)] B-Complex with Vitamin C [Super B 1 cap PO [id number] 07/13/17 11/09/17 History with Vit C] Carvedilol 25 mg PO BID 07/13/17 11/09/17 History Bumetanide Tab [Bumex 1 mg Tab] 2 mg PO BID 07/30/17 11/09/17 History Docusate Sodium [Colace] 200 mg PO HS 07/30/17 11/09/17 History Lisinopril [Prinivil] 2.5 mg PO DAILY 08/14/17 11/09/17 History Silver Sulfadiazine [Silvadene] 1 applicatio TP DAILY 08/14/17 11/09/17 History Carbidopa/Levodopa 1 tab PO TID 11/06/17 11/09/17 History [Carbidopa-Levodopa 25-100 Tab] Potassium Chloride [K-DUR 20 mEq 20 meq PO DAILY 11/06/17 11/09/17 History Tablet] Ropinirole [Requip] 2 mg PO TID 11/06/17 11/09/17 History Tramadol [Ultram] 50 mg PO HS 11/06/17 11/09/17 History dilTIAZem HCl [Diltiazem ER] 120 mg PO DAILY 11/09/17 11/09/17 History Naphazoline HCl/Pheniramine 15 ml OP PRN 11/10/17 History [Opcon-A Eye Drops] Allergies Allergy/AdvReac Type Severity Reaction Status Date / Time prednisone Allergy Unknown ANXIOUS Verified 11/06/17 13:18 Corticosteroids Allergy Verified 11/06/17 13:18 (Glucocorticoids) Quinolones Allergy Verified 11/06/17 13:18 tetracycline Allergy Verified 11/06/17 13:18 dicyclomine AdvReac Severe "MAKES ME Verified 11/06/17 13:18 VERY NERVOUS AND JITTERY" aspirin AdvReac Unknown CAUSES GI Verified 11/06/17 13:18 BLEEDING ciprofloxacin AdvReac Unknown HYPERACTIVE Verified 11/06/17 13:18 Exam Vital signs: Temperature 96.7 F L 11/10/17 07:27 Pulse Rate 108 H 11/10/17 07:27 Respiratory Rate 16 11/10/17 07:27 Blood Pressure 117/65 11/10/17 07:27 Pulse Oximetry 94 11/10/17 07:27 - Constitutional no acute distress, thin, cooperative - Routine HEENT Exam Head: Present: normocephalic, atraumatic ENT: Present: mucous membranes moist - Routine Neck Exam Absent: JVD, carotid bruit - Routine Chest/Breast/Axilla Exam Chest wall: Present: pacemaker - Routine Respiratory Exam Present: rales, rhonchi, wheezes - Routine Cardiovascular Exam Present: no murmur, irregular rhythm - Routine Abdominal Exam Present: soft, normoactive bowel sounds, non tender - Routine Extremities Exam Present: no edema. Absent: cyanosis - Routine Skin Exam Present: intact - Routine Neurological Exam Present: alert, oriented X3 - Routine Psychiatric Exam Present: normal affect, normal thought process Results 11/11/17 04:18 11/11/17 04:18 CBC 11/10/17 Range/Units 02:24 WBC 7.8 (4.5-11.0) T/MM3 RBC 3.66 L (4.50-5.90) M/MM3 Hgb 11.1 L (13.5-17.5) GM/DL Hct 34.8 L (41-53) % Plt Count 149 (130-400) T/MM3 Neut # (Auto) Not performed Lymph # (Auto) Not performed [place] # (Auto) Not performed Eos # (Auto) Not performed Baso # (Auto) Not performed Comprehensive Metabolic Panel 11/10/17 Range/Units 02:24 Sodium 147 H (134-144) MEQ/L Potassium 3.6 (3.6-5) MEQ/L Chloride 99 (98-107) MEQ/L Carbon Dioxide 34 H (22-30) MEQ/L BUN 54.0 H* (9-20) MG/DL Creatinine 1.7 H D (0.8-1.5) mg/dL Glucose 275 H (75-110) MG/DL Calcium 8.5 (8.4-10.2) MG/DL Intake and Output 11/09/17 11/10/17 11/10/17 22:59 06:59 14:59 Intake Total 50 / 50 Output Total 300 / 300 225 / 225 Balance -250 / -250 -225 / -225 Intake: IV 50 / 50 Albumin Human 12.5 g In 50 / 50 Container,Empty 0 ml @ 50 mls/ hr IV O ONE Rx#:[id number] Output: Urine 300 / 300 225 / 225 Other: Urine Appearance Clear Clear Urine Color Yellow Yellow Stool Color Brown Stool Consistency Soft Size of Bowel Movement Moderate # Voids 1 1 # Bowel Movements 1 Weight 68.4 kg 67.8 kg Patient Weight 11/11/17 07:59 Weight 67.8 kg Laboratory Results - last 24 hr 11/09/17 11/09/17 11/09/17 22:04 22:05 22:33 WBC 8.8 RBC 3.91 L Hgb 11.9 L Hct 37.0 L MCV 94.6 MCH 30.4 MCHC 32.2 RDW Std Deviation 53.5 H Plt Count 172 MPV 11.3 Immature Gran % (Auto) 0.2 Neut % (Auto) 69.6 H Lymph % (Auto) 16.5 L [place] % (Auto) 11.5 H Eos % (Auto) 1.9 Baso % (Auto) 0.3 Neut # (Auto) 6.1 Lymph # (Auto) 1.5 [place] # (Auto) 1.0 H Eos # (Auto) 0.2 Baso # (Auto) 0.0 Abs Immat Gran (auto) 0.02 Neutrophils % (Manual) Band Neutrophils % Lymphocytes % (Manual) Monocytes % (Manual) Neutrophils # (Manual) Band Neutrophils # Lymphocytes # (Manual) Monocytes # (Manual) RBC Morph Comment Turbidity < 20 Sodium 147 H Potassium 3.7 Chloride 98 Carbon Dioxide 36 H Anion Gap 13 BUN 53.0 H* Creatinine 1.9 H GFR Calculation 34 BUN/Creatinine Ratio 28 H Glucose 133 H Calculated Osmolality 298 H Calcium 8.9 Icterus Index < 2 NT-Pro-B Natriuret Pep 58992 H Plasma Lactate 1.2 Specimen Hemolysis < 15 Influenza Type A (PCR) Negative Influenza Type B (PCR) Negative 11/10/17 11/10/17 02:24 02:24 WBC 7.8 RBC 3.66 L Hgb 11.1 L Hct 34.8 L MCV 95.1 MCH 30.3 MCHC 31.9 RDW Std Deviation 53.3 H Plt Count 149 MPV 11.3 Immature Gran % (Auto) Not performed Neut % (Auto) Not performed Lymph % (Auto) Not performed [place] % (Auto) Not performed Eos % (Auto) Not performed Baso % (Auto) Not performed Neut # (Auto) Not performed Lymph # (Auto) Not performed [place] # (Auto) Not performed Eos # (Auto) Not performed Baso # (Auto) Not performed Abs Immat Gran (auto) Not performed Neutrophils % (Manual) 88.0 H Band Neutrophils % 2.0 Lymphocytes % (Manual) 8.0 L Monocytes % (Manual) 2.0 Neutrophils # (Manual) 6.9 Band Neutrophils # 0.2 Lymphocytes # (Manual) 0.6 L Monocytes # (Manual) 0.2 RBC Morph Comment Normal Turbidity < 20 Sodium 147 H Potassium 3.6 Chloride 99 Carbon Dioxide 34 H Anion Gap 14 BUN 54.0 H* Creatinine 1.7 H D GFR Calculation 39 BUN/Creatinine Ratio 32 H Glucose 275 H Calculated Osmolality 307 H Calcium 8.5 Icterus Index < 2 NT-Pro-B Natriuret Pep Plasma Lactate 1.3 Specimen Hemolysis < 15 Influenza Type A (PCR) Influenza Type B (PCR) EKG interpretations - EKG EKG shows: atrial fibrillation Assessment and Plan - Assessment and Plan (1) Acute on chronic systolic (congestive) heart failure Current visit: No Status: Acute (2) Paroxysmal atrial fibrillation Current visit: No Status: Chronic (3) Essential (primary) hypertension Current visit: No Status: Chronic (4) Bronchitis Current visit: No Status: Acute (5) ICD (implantable cardioverter-defibrillator) in place Current visit: No Status: Chronic (6) Acute exacerbation of chronic obstructive airways disease Current visit: No Status: Acute (7) Atherosclerotic heart disease of [place] coronary artery without angina pectoris Current visit: No Status: Chronic (8) Type 2 diabetes mellitus without complications Current visit: No Status: Chronic - Assessment and Plan Acute on chronic systolic congestive heart failure PAF, chronic HTN Cardiomyopathy, EF 30% per 01/2017 ECHO AICD CAD HLD Acute on chronic COPD exacerbation Bronchitis JEANNA DM2 11/10/17: Rate up to 160's in afib on tele this AM. IV dig .5mg IVP now, .25mg IVP in 4 hours. Start Coreg 25mg bid this evening, hold sbp <100. Pt got dose of diltiazem 180 this am. Not a candidate for full anti-coagulation due to history of significant bleed. Bumex 2mg IVP now, then 0.5mg/hr Bumex gtt. Potassium 3.6 today, replace 20meq TID, follow renal function and lytes. Agree with fluid restriction and low Na diet. COPD, URI, DM managed per attending. This pt was seen and examined by Annmarie Willis APRN. Case discussed with Dr. Hinojosa, he is involved and directed pt plan. Hospital Course Summary Disclaimer: The visit summary below is not to be considered part of the above Progress Note. <Jonathan Hinojosa - Last Filed: 11/14/17 07:57> [facility] Patient Stated Medical History Dementia Yes Migraine Yes Peripheral Neuropathy Yes Parkinson's Disease Yes Cataracts Yes Dental Problems Yes: NO TEETH Hearing Loss Yes Other HEENT Yes: WEARS GLASSES Angina Yes Cardiac Arrhythmia Yes: AFIB,PVC,V-TACH Congestive Heart Failure Yes: EF 20 % Coronary Artery Disease Yes Hypertension Yes Myocardial Infarction No Rheumatic Fever Yes Valvular Heart Disease Yes Asthma Yes Chronic Obstructive Pulmonary Yes Disease (COPD) Pneumonia Yes Sleep Apnea Yes Diabetes Mellitus Type 2 Yes Gastroesophageal Reflux Yes Disease Hiatal Hernia Yes Hx Benign Prostatic Yes Hyperplasia Hx Incontinence Yes Hx Urinary Tract Infection Yes Other Yes: PROSTATE CA Anemia Yes Osteoarthritis Yes Other Musculoskeletal Yes: RLS, Parkinson's, dimentia, and presyncopal episode Shingles Yes Other Infectious Yes: UNKNOWN LUNG INFECTION Blood Transfusions Yes: NO PROBLEMS Other Yes: RADATION Depression Yes Clinic Medical History (Last Updated 07/04/17 @ 12:18 by Asia Dejesus APRN) CHF (congestive heart failure) (Chronic Medical) Prostate cancer (Acute Medical) Anemia (Chronic Medical) Anxiety (Chronic Medical) COPD (chronic obstructive pulmonary disease) (Chronic Medical) Depression (Chronic Medical) Diabetes mellitus (Chronic Medical) GERD (gastroesophageal reflux disease) (Chronic Medical) HTN (hypertension) (Chronic Medical) Macular degeneration (Chronic Medical) JEANNA (obstructive sleep apnea) (Chronic Medical) Pacemaker (Chronic Medical) History of adenomatous polyp of colon (Resolved Medical) History of alcoholism (Resolved Medical) Family History: Family History (Last Updated 07/04/17 @ 12:23 by Asia Dejesus APRN) Father Diabetes mellitus HTN (hypertension) Mother Diabetes mellitus HTN (hypertension) Exam Vital signs: Temperature 96.8 F 11/13/17 22:45 Pulse Rate 56 L 11/14/17 07:22 Respiratory Rate 20 11/14/17 07:22 Blood Pressure 119/62 11/14/17 07:22 Pulse Oximetry 93 11/14/17 07:22 Results 11/14/17 04:22 11/14/17 04:22 CBC 11/14/17 Range/Units 04:22 WBC 8.9 (4.5-11.0) T/MM3 RBC 4.75 (4.50-5.90) M/MM3 Hgb 14.0 (13.5-17.5) GM/DL Hct 44.2 (41-53) % Plt Count 177 (130-400) T/MM3 Neut # (Auto) 5.9 (1.8-7.7) T/MM3 Lymph # (Auto) 2.0 (1-4.8) T/MM3 [place] # (Auto) 0.9 H (0-0.8) T/MM3 Eos # (Auto) 0.1 (0-0.5) T/MM3 Baso # (Auto) 0.0 (0-0.2) T/MM3 Comprehensive Metabolic Panel 11/14/17 Range/Units 04:22 Sodium 143 (134-144) MEQ/L Potassium 3.8 (3.6-5) MEQ/L Chloride 93 L (98-107) MEQ/L Carbon Dioxide 38 H (22-30) MEQ/L BUN 38.0 H (9-20) MG/DL Creatinine 1.1 D (0.8-1.5) mg/dL Glucose 95 (75-110) MG/DL Calcium 8.5 (8.4-10.2) MG/DL Intake and Output 11/13/17 11/14/17 11/14/17 22:59 06:59 14:59 Intake Total 290 / 290 400 / 400 Output Total 400 / 400 Balance 290 / 290 0 / 0 Intake: IV 50 / 50 250 / 250 Cefepime 1 gm In Ns 50 ml @ 100 50 / 50 mls/hr IV Q12H [facility] Rx#: [id number] Vancomycin 1,000 mg In NS 250ml 250 / 250 250 ml @ 250 mls/hr IV Q18H [facility] Rx#:[id number] Oral 240 / 240 150 / 150 Output: Urine 400 / 400 Other: Urine Color Yellow Stool Color Brown Stool Consistency Formed Size of Bowel Movement Small # Voids 1 1 # Bowel Movements 1 Weight 66.9 kg Patient Weight 11/15/17 06:59 Weight 66.9 kg Assessment and Plan - Attestation Attestation Narrative: 11/14/17 07:56 Recommendation: I agree with the above and I am involved in the formulation of the patient's plan of care. - Assessment and Plan (1) Acute on chronic systolic (congestive) heart failure Current visit: No Status: Acute (2) Paroxysmal atrial fibrillation Current visit: No Status: Chronic (3) Essential (primary) hypertension Current visit: No Status: Chronic (4) ICD (implantable cardioverter-defibrillator) in place Current visit: No Status: Chronic (5) Bronchitis Current visit: No Status: Acute (6) Cardiomyopathy Current visit: Yes Status: Chronic Hospital Course Summary Disclaimer: The visit summary below is not to be considered part of the above Progress Note.
[2017-11-10] MEDS ORDERED: GLUCOSE ORAL GEL 40% 37.5gm PO PRN (10:51)
[2017-11-10] MEDS ORDERED: DEXTROSE 50% SYRINGE 50ml (1 AMP) IVP PRN (10:51)
[2017-11-10] MEDS ORDERED: INSULIN REGULAR, HUMAN 100 UNIT/ML INJECTION SQ ONE ×2 (11:00→16:15)
[2017-11-10] MEDS ORDERED: DIGOXIN 500 MCG/2 ML INJECTION IVP ONE ×2 (11:25→16:00)
--- NOTE | 2017-11-10 11:38 | History & Physical Report ---
History of Present Illness Date: 11/11/17 Chief complaint: Shortness of breath HPI: 77 yo M with PMH of COPD and CHF presented to the ED with reports of productive cough and SOA. Pt tells me this has been coming on ever since he had his teeth pulled 3 weeks ago. He had 5 teeth out and 3 were "infected". He states he has had progressive SOA with cough since then. He has been coughing up yellow sputum. Patient was seen in the emergency room earlier in the week on 11/06. He was given nebulizer treatments and discharged home. He did see Dr. Hinojosa on Tuesday 11/07. At that time Cardizem and Bumex doses were both increased. Since that time, his breathing has worsened. He presented back to the ED and was found to have a fever. He was subsequently admitted for further eval. When seen by me he appears comfortable. His appears euvolemic. He denies fevers or chills but states his room is cold. He coughed up some phlegm yesterday but none so far today. He is breathing much better than when he came in. He is on RA. He has "dizziness" that is not new and comes and goes. He describes it as off balance. No lightheadedness. No Chest pain or palp. No N/V/D/C. No m/h. No complaints. No edema. He reports today it is better than usual. Review of Systems All systems PM: 10-point ROS was reviewed, no additional remarkable complaints except Past Medical History Patient Stated Medical History Dementia Yes Migraine Yes Peripheral Neuropathy Yes Parkinson's Disease Yes Cataracts Yes Dental Problems Yes: NO TEETH Hearing Loss Yes Other HEENT Yes: WEARS GLASSES Angina Yes Cardiac Arrhythmia Yes: AFIB,PVC,V-TACH Congestive Heart Failure Yes: EF 20 % Coronary Artery Disease Yes Hypertension Yes Myocardial Infarction No Rheumatic Fever Yes Valvular Heart Disease Yes Asthma Yes Chronic Obstructive Pulmonary Yes Disease (COPD) Pneumonia Yes Sleep Apnea Yes Diabetes Mellitus Type 2 Yes Gastroesophageal Reflux Yes Disease Hiatal Hernia Yes Hx Benign Prostatic Yes Hyperplasia Hx Incontinence Yes Hx Urinary Tract Infection Yes Other Yes: PROSTATE CA Anemia Yes Osteoarthritis Yes Other Musculoskeletal Yes: RLS, Parkinson's, dimentia, and presyncopal episode Shingles Yes Other Infectious Yes: UNKNOWN LUNG INFECTION Blood Transfusions Yes: NO PROBLEMS Other Yes: RADATION Depression Yes Clinic Medical History (Last Updated 07/04/17 @ 12:18 by Asia Dejesus APRN) CHF (congestive heart failure) (Chronic Medical) Prostate cancer (Acute Medical) Anemia (Chronic Medical) Anxiety (Chronic Medical) COPD (chronic obstructive pulmonary disease) (Chronic Medical) Depression (Chronic Medical) Diabetes mellitus (Chronic Medical) GERD (gastroesophageal reflux disease) (Chronic Medical) HTN (hypertension) (Chronic Medical) Macular degeneration (Chronic Medical) JEANNA (obstructive sleep apnea) (Chronic Medical) Pacemaker (Chronic Medical) History of adenomatous polyp of colon (Resolved Medical) History of alcoholism (Resolved Medical) Surgical History: exploratory thoracotomy 11/1975. vasectomy 1979. TURP 1993. Prosate radiation 2005. Left Inguinal hernia repair 01/12/2014. Right Inguinal hernia repair 03/04/2014. Colonoscopy Tubulovillous adenoma at 9 piecemealed out 01/03/2017 [facility]. EGD esophagitis, no Martinez's 01/03/2017. Colonoscopy normal 03/04/2014 [facility]. Colonoscopy normal diverticulosis 2009 [facility]. Left heart cath no stents 12/07/2011. Hiatal hernia repair 1979. Right total knee replacement 02/28/1993. Left total knee replacement . Heart cath 03/11/1997 and 03/28/17. Colonoscopy 07/16/17. PPM/AICD Family History: Family History (Last Updated 07/04/17 @ 12:23 by Asia Dejesus APRN) Father, at 71 Diabetes mellitus HTN (hypertension) Mother at 32 Diabetes mellitus HTN (hypertension) Drugs and ETOH Family History Updates: Father, at 71. Diabetes mellitus. HTN ( hypertension). Mother at 32. Diabetes mellitus. HTN (hypertension). Drugs and ETOH - Social History Smoking status: Former smoker (smoked for many years. quit in 15years ago) Alcohol intake: former Does patient use chewing tobacco?: Yes (2 packs/days) Current residence: Apartment/Private Home Medications Home Medications Medication Instructions Recorded Confirmed Type Albuterol Sulfate [Proair Hfa] 2 puff IH Q6H PRN #0 01/09/14 11/09/17 History Gabapentin 600 mg PO HS #0 11/02/15 11/09/17 History Acetaminophen [Arthritis Pain 1,300 mg PO BID PRN 03/28/17 11/09/17 History Relief] Metformin [Glucophage] 500 mg PO DAILY 04/30/17 11/09/17 History Albuterol Neb (0.083%) [Proventil 2.5 mg AEROSOL PRN PRN 05/25/17 11/09/17 History Neb (0.083%)] B-Complex with Vitamin C [Super B 1 cap PO [id number] 07/13/17 11/09/17 History with Vit C] Carvedilol 25 mg PO BID 07/13/17 11/09/17 History Bumetanide Tab [Bumex 1 mg Tab] 2 mg PO BID 07/30/17 11/09/17 History Docusate Sodium [Colace] 200 mg PO HS 07/30/17 11/09/17 History Lisinopril [Prinivil] 2.5 mg PO DAILY 08/14/17 11/09/17 History Silver Sulfadiazine [Silvadene] 1 applicatio TP DAILY 08/14/17 11/09/17 History Carbidopa/Levodopa 1 tab PO TID 11/06/17 11/09/17 History [Carbidopa-Levodopa 25-100 Tab] Potassium Chloride [K-DUR 20 mEq 20 meq PO DAILY 11/06/17 11/09/17 History Tablet] Ropinirole [Requip] 2 mg PO TID 11/06/17 11/09/17 History Tramadol [Ultram] 50 mg PO HS 11/06/17 11/09/17 History dilTIAZem HCl [Diltiazem ER] 120 mg PO DAILY 11/09/17 11/09/17 History Naphazoline HCl/Pheniramine 15 ml OP PRN 11/10/17 History [Opcon-A Eye Drops] Allergies Allergy/AdvReac Type Severity Reaction Status Date / Time prednisone Allergy Unknown ANXIOUS Verified 11/06/17 13:18 Corticosteroids Allergy Verified 11/06/17 13:18 (Glucocorticoids) Quinolones Allergy Verified 11/06/17 13:18 tetracycline Allergy Verified 11/06/17 13:18 dicyclomine AdvReac Severe "MAKES ME Verified 11/06/17 13:18 VERY NERVOUS AND JITTERY" aspirin AdvReac Unknown CAUSES GI Verified 11/06/17 13:18 BLEEDING ciprofloxacin AdvReac Unknown HYPERACTIVE Verified 11/06/17 13:18 Exam Vital Signs: Temperature 96.7 F L 11/10/17 07:27 Pulse Rate 155 H 11/10/17 08:00 Respiratory Rate 16 11/10/17 07:27 Blood Pressure 96/80 11/10/17 10:47 Pulse Oximetry 94 11/10/17 07:27 Height/Weight/BMI: Height 1.65 m Weight 67.8 kg Body Mass Index 25.0 Comments: Gen: alert and oriented. NAD. Pleasant and conversive Skin: warm and dry. HEENT: NC/AT PERRL, EOMI, Sclera,lids and conjunctiva wnl. MMM. OP clear. Neck: supple. No JVD. Carotids 2+ without bruits Lungs: diminished BS with bilateral wheezes and coarse BS. No rales CV: Irregular rhythm. Tachy at times. Soft murmur. No edema. Pedal pulses are palpable bilaterally Abd: soft. +BS. NT/ND MS: Good strength and ROM. Neuro: no focal deficit. Psy: normal mood and affect. Results - Labs CBC & Chem 7: 11/11/17 04:18 11/11/17 04:18 Microbiology Results: Microbiology 11/10/17 01:25 Sputum, Expectorated Gram Stain - Final 11/10/17 01:25 Sputum, Expectorated Sputum Culture - Preliminary Culture Initiated - Results Pending Assessment and Plan (1) Acute on chronic systolic (congestive) heart failure Current visit: No Status: Acute (2) Bronchitis Current visit: No Status: Acute Assessment and Plan: Assessment and Plan: (1) Bronchitis/COPD exacerbation with fever at presentation -Resp therapy -Pt reports "allergy" to steroids. He reports they make him "mean" -On azithromycin (2) Acute on chronic non ischemic systolic heart failure -EF 20% -s/p ICD -Dr. Hinojosa consulted -Bumex drip ordered -High Pro-BNP likely from poor systolic function and afib. (3) Atrial fibrillation -Tachy -Resume coreg -PRN diltiazem for HR >120 sustained -Dig 0.5mg IV now and then 0.25 in 6 hours times one -[id number] = -PPM/ICD in place (4) COPD -Exacerbation -Resp therapy (5) DM -SSI -Hold home metformin (6) JEANNA -Bipap at night -He usually goes to bed with it but rarely wakes up with it on. He is unsure how longs he actually wears it at night. (7) RLS -continue Requip (8) HTN -Continue coreg -change diltiazem to prn for hr/bp (9) Parkinsons disease -Continue Sinemet (10) Prophylaxis -PPI and SQ heparin - Physician Narrative Narrative: Date: 11/10/17 Time: 1135 Hospital Course Summary Disclaimer: The visit summary below is not to be considered part of the above Progress Note.
[2017-11-10] MEDS: BUMETANIDE IV SCH ×2 (13:00→14:25)
[2017-11-10] MEDS ORDERED: ALBUTEROL/IPRATROPIUM 2.5mg-0.5mg/3ml NEB AEROSOL PRN (14:16)
[2017-11-10] MEDS: VITAMIN B COMPLEX + C TABLET PO SCH (14:26)
[2017-11-10] MEDS: ALBUTEROL/IPRATROPIUM 2.5mg-0.5mg/3ml NEB AEROSOL SCH ×2 (14:34→20:10)
[2017-11-10] MEDS ORDERED: DiltiaZEM IR 30 MG TABLET PO PRN (16:05)
[2017-11-10] MEDS ORDERED: CEFTRIAXONE 1 G in NS 100 ML IV SCH (16:15)
[2017-11-10] MEDS: CARVEDILOL 25 MG TABLET PO SCH (17:55)
[2017-11-10] MEDS: BUDESONIDE INH.SOLN 0.5mg/2ml NEB AEROSOL SCH (20:10)
[2017-11-10] MEDS ORDERED: BUMETANIDE 1 MG TABLET PO SCH (21:00)
[2017-11-10] MEDS ORDERED: TRAMADOL 50 MG TABLET PO SCH (21:00)
[2017-11-10] MEDS: GUAIFENESIN LA 600 MG TABLET PO SCH (21:30)
[2017-11-10] MEDS: GABAPENTIN 600 MG TABLET PO SCH (21:30)
[2017-11-10] MEDS: TRAMADOL 50 MG TABLET PO SCH (21:31)
[2017-11-10] MEDS: DOCUSATE SODIUM 100 MG CAPSULE PO SCH (21:31)
[2017-11-10] MEDS ORDERED: GABAPENTIN 600 MG TABLET PO SCH (22:00)
[2017-11-10] MEDS: GUAIFENESIN/DM 5ml ORAL LIQUID PO PRN (23:02)
[2017-11-11] MEDS: GUAIFENESIN/DM 5ml ORAL LIQUID PO PRN ×2 (06:47→17:51)
[2017-11-11] MEDS: BUDESONIDE INH.SOLN 0.5mg/2ml NEB AEROSOL SCH ×2 (06:54→19:59)
[2017-11-11] MEDS: ALBUTEROL/IPRATROPIUM 2.5mg-0.5mg/3ml NEB AEROSOL SCH ×4 (06:55→19:59)
[2017-11-11] MEDS: GUAIFENESIN LA 600 MG TABLET PO SCH ×2 (09:35→21:08)
[2017-11-11] MEDS: CARVEDILOL 25 MG TABLET PO SCH ×2 (09:36→17:53)
[2017-11-11] MEDS: ROPINIROLE 2 MG TABLET PO SCH ×3 (09:36→21:07)
[2017-11-11] MEDS: VITAMIN B COMPLEX + C TABLET PO SCH ×2 (09:36→15:30)
[2017-11-11] MEDS: CEFTRIAXONE 1 G in NS 50 ML IV SCH (09:41)
[2017-11-11] MEDS: SILVER SULFADIAZINE 1% CREAM 25 GM TOP SCH (09:41)
--- NOTE | 2017-11-11 10:00 | XRay Report ---
Indication: productive coughing, dyspnea PROCEDURE: XR chest 1V: Encounter: Initial Comparison: November 06, 2017 Findings: No significant change in the diffuse mild interstitial prominence. No obvious new consolidation. No definite effusion. No pneumothorax. Cardiac silhouette remains enlarged. Left pacemaker. Mediastinal contours are stable. Pulmonary vascularity is slightly prominent. Impression: Findings of emphysema and mild CHF. .
--- NOTE | 2017-11-11 10:21 | XRay Report ---
INDICATION: Hypoxia/HF PROCEDURE: CHEST 2-VIEWS UPRIGHT (PA & LAT) Encounter: Initial COMPARISON: November 09, 2017 FINDINGS: Interval improvement in mild interstitial prominence and hyperinflation. No pleural effusions. No pneumothorax. Heart size and mediastinal contours are stable left pacemaker defibrillator. Impression: Improving CHF. .
--- NOTE | 2017-11-11 10:30 | Cardiology Progress Note ---
<Annmarie Willis L - Last Filed: 11/11/17 14:29> Subjective Principal diagnosis: CHF exacerbation, URI, COPD exacerbation Interval history: Pt reports feeling much improved today, he can breath better. Tolerating ambulating small amounts, cough is improved. He states he can tell he lost a lot of fluid. Exam Vital signs: Temperature 95.1 F L 11/11/17 08:30 Pulse Rate 78 11/11/17 08:30 Respiratory Rate 20 11/11/17 08:30 Blood Pressure 147/79 H 11/11/17 08:30 Pulse Oximetry 90 11/11/17 08:30 Inpatient Medications: Generic Name Dose Route Start Last Admin Trade Name Freq PRN Reason Stop Dose Admin Acetaminophen 1,300 mg 11/10/17 09:47 Tylenol Arthritis PO BID PRN Pain Albuterol/Ipratropium 3 ml 11/10/17 15:00 11/11/17 06:55 Duoneb AEROSOL 3 ml RTQID ROD[facility]IGO Administration Albuterol/Ipratropium 3 ml 11/10/17 14:16 Duoneb AEROSOL RTQID PRN Azithromycin 500 mg 11/10/17 21:00 11/10/17 21:32 Zithromax PO 500 mg HS RODRIGO Administration Budesonide 0.5 mg 11/10/17 19:00 11/11/17 06:54 Pulmicort Inhalation AEROSOL 0.5 mg RTBID R[facility]IGO Administration Bumetanide 2 mg 11/11/17 17:30 Bumex 1 Mg Tab PO BIDBS RODRIGO Carbidopa/Levodopa 1 tab 11/10/17 15:00 11/11/17 09:36 Sinemet PO 1 tab TID RODRIGO Administration Carvedilol 25 mg 11/10/17 17:30 11/11/17 09:36 Coreg PO 25 mg BIDWM RODRIGO Administration Dextrose 1 ml 11/10/17 10:51 D50%W IVP PRN PRN Hypoglycemia Diltiazem HCl 30 mg 11/10/17 16:05 Cardizem Ir 30 Mg Tab PO Q6HR PRN FOR HR sustained >120 Docusate Sodium 200 mg 11/10/17 21:00 11/10/17 21:31 Colace PO 200 mg HS R[facility]RIGO Administration Gabapentin 600 mg 11/10/17 21:00 11/10/17 21:30 Neurontin PO 600 mg HS RODRIGO Administration Glucose 37.5 gm 11/10/17 10:51 Glutose 15 PO PRN PRN Hypoglycemia Guaifenesin 1,200 mg 11/10/17 21:00 11/11/17 09:35 Mucinex La PO 1,200 mg BID RODRIGO Administration Guaifenesin/Dextromethorphan 10 ml 11/10/17 22:53 11/11/17 06:47 Robitussin Dm PO 10 ml Q4H PRN Administration Cough /Congestion Ceftriaxone Sodium 1 g/ Sodium 50 mls @ 200 mls/hr 11/11/17 09:00 11/11/17 09 :56 Chloride IV Infused Q24HR R[facility]IGO Infusion Sodium Chloride 500 mls @ 10 mls/hr 11/10/17 21:39 11/10/17 21:43 Normal Saline IV 10 mls/hr .Q24H R[facility]IGO Administration Insulin Human Regular 2 - 8 unit 11/10/17 10:51 Novolin R SQ SS PRN Hyperglycemia Protocol Multivitamins 1 tab 11/10/17 14:00 11/11/17 09:36 Total B + C PO 1 tab [id number] RODRIGO Administration Potassium Chloride 20 meq 11/11/17 09:00 11/11/17 09:30 K-Dur 20 Meq Tablet PO Not Given DAILY RODRIGO Potassium Chloride 20 meq 11/11/17 17:30 K-Dur 20 Meq Tablet PO BIDWM R[facility]IGO Ropinirole HCl 2 mg 11/10/17 15:00 11/11/17 09:36 Requip PO 2 mg TID RODRIGO Administration Silver Sulfadiazine 1 applic 11/11/17 09:00 11/11/17 09:41 Silvadene TOP 1 applic DAILY RODRIGO Administration Sodium Chloride 10 - 80 ml 11/09/17 21:40 11/10/17 17:55 Iv Flush IVF 50 ml PRN PRN Administration Flushing Tramadol HCl 50 mg 11/10/17 21:00 11/10/17 21:31 Ultram PO 50 mg HS RODRIGO Administration Discontinued Medications Generic Name Dose Route Start Last Admin Trade Name Freq PRN Reason Stop Dose Admin Albuterol/Ipratropium 3 ml 11/09/17 21:44 11/09/17 21:54 Duoneb AEROSOL 11/09/17 21:45 3 ml O ONE Administration Azithromycin 500 mg 11/10/17 09:00 11/10/17 10:33 Zithromax PO Not Given DAILY R[facility]RIGO Budesonide 0.5 mg 11/09/17 21:44 11/09/17 21:54 Pulmicort Inhalation AEROSOL 11/09/17 21:45 0.5 mg O ONE Administration Bumetanide 1 mg 11/09/17 23:59 11/10/17 01:06 Bumex 1 Mg/4 Ml Inj. IVP 11/10/17 00:00 1 mg O ONE Administration Bumetanide 2 mg 11/10/17 21:00 Bumex 1 Mg Tab PO BID RODRIGO Bumetanide 2 mg 11/10/17 11:30 11/10/17 12:23 Bumex 1 Mg/4 Ml Inj. IVP 11/10/17 11:31 2 mg O ONE Administration Carbidopa/Levodopa 1 tab 11/10/17 09:00 11/10/17 10:17 Sinemet PO Not Given TID R[facility]RIGO Dexamethasone 8 mg 11/09/17 22:15 11/09/17 22:32 Decadron IVP 11/09/17 22:16 8 mg O ONE Administration Digoxin 500 mcg 11/10/17 11:25 11/10/17 12:14 Lanoxin IVP 11/10/17 11:26 500 mcg O ONE Administration Digoxin 125 mcg 11/10/17 16:00 11/10/17 16:40 Lanoxin IVP 11/10/17 16:01 125 mcg O ONE Administration Diltiazem HCl 120 mg 11/10/17 10:00 11/10/17 10:40 Cardizem Cd 120 Mg PO 120 mg DAILY RODRIGO Administration Docusate Sodium 200 mg 11/10/17 09:00 11/10/17 10:17 Colace PO Not Given BID R[facility]IGO Gabapentin 600 mg 11/10/17 22:00 11/10/17 01:09 Neurontin PO 600 mg DAILY R[facility]IGO Administration Albumin Human 12.5 g/ IV 50 mls @ 50 mls/hr 11/09/17 23:59 11/10/17 02:07 Solution IV 11/10/17 00:58 Infused O ONE Infusion Bumetanide 25 mg/ IV Solution 100 mls @ 2 mls/hr 11/10/17 12:00 11/11/17 09: 56 IV 2 mls/hr Q24H [facility] Infusion Ceftriaxone Sodium 1 g/ Sodium 100 mls @ 200 mls/hr 11/10/17 16:15 11/10/17 17:55 Chloride IV Infused Q24H [facility] Infusion Insulin Human Regular 12 unit 11/10/17 11:00 11/10/17 12:11 Novolin R SQ 11/10/17 11:01 12 unit O ONE Administration Insulin Human Regular 12 unit 11/10/17 16:15 11/10/17 16:40 Novolin R SQ 11/10/17 16:16 12 unit O ONE Administration Potassium Chloride 20 meq 11/10/17 12:00 11/11/17 09:36 K-Dur 20 Meq Tablet PO 20 meq TIDWM R[facility]RIGO Administration Ropinirole HCl 2 mg 11/10/17 09:00 11/10/17 10:33 Requip PO Not Given TID R[facility]RIGO Tramadol HCl 50 mg 11/10/17 21:00 11/10/17 01:08 Ultram PO 50 mg HS RODRIGO Administration - Constitutional no acute distress, thin, cooperative - Routine HEENT Exam Head: Present: normocephalic, atraumatic Eye: Present: PERRL ENT: Present: mucous membranes moist - Routine Neck Exam Absent: JVD, carotid bruit - Routine Chest/Breast/Axilla Exam Chest wall: Present: pacemaker - Routine Respiratory Exam Present: rhonchi, wheezes - Routine Cardiovascular Exam Present: no murmur, irregular rhythm - Routine Abdominal Exam Present: soft - Routine Skin Exam Present: intact - Routine Neurological Exam Present: alert, oriented X3 - Routine Psychiatric Exam Present: normal affect, normal thought process Results 11/11/17 04:18 11/11/17 04:18 CBC 11/11/17 Range/Units 04:18 WBC 9.4 (4.5-11.0) T/MM3 RBC 4.07 L (4.50-5.90) M/MM3 Hgb 12.0 L (13.5-17.5) GM/DL Hct 38.7 L D (41-53) % Plt Count 165 (130-400) T/MM3 Neut # (Auto) 7.9 H (1.8-7.7) T/MM3 Lymph # (Auto) 1.0 (1-4.8) T/MM3 Stoddard # (Auto) 0.6 (0-0.8) T/MM3 Eos # (Auto) 0.0 (0-0.5) T/MM3 Baso # (Auto) 0.0 (0-0.2) T/MM3 Comprehensive Metabolic Panel 11/11/17 Range/Units 04:18 Sodium 149 H (134-144) MEQ/L Potassium 3.6 (3.6-5) MEQ/L Chloride 99 (98-107) MEQ/L Carbon Dioxide 38 H (22-30) MEQ/L BUN 54.0 H* (9-20) MG/DL Creatinine 1.6 H (0.8-1.5) mg/dL Glucose 137 H (75-110) MG/DL Calcium 8.7 (8.4-10.2) MG/DL Intake and Output 11/10/17 11/11/17 11/11/17 21:59 06:59 14:59 Intake Total 319.5 / 319.5 Output Total 350 / 350 Balance -30.5 / -30.5 Intake: IV 79.5 / 79.5 Bumetanide Drip 25 mg In 29.5 / 29.5 Container,Empty 100 ml @ 2 mls/ hr IV Q24H [facility] Rx#:[id number] Ceftriaxone 1 g In Ns 100 ml @ 200 mls/hr IV Q24H [facility] Rx#: [id number] Ceftriaxone 1 g In Ns 50 ml @ 50 / 50 200 mls/hr IV Q24HR [facility] Rx#: [id number] Oral 240 / 240 Output: Urine 350 / 350 Other: Urine Appearance Clear Urine Color Yellow Urine Odor Normal # Voids 1 Weight 66.5 kg Patient Weight 11/12/17 06:59 Weight 66.5 kg - Imaging and Cardiology Imaging & Cardiology Narrative: 11/11/17 10:32 Tele AFib rate 60-90 today Assessment and Plan - Assessment and Plan (1) Acute on chronic systolic (congestive) heart failure Current visit: No Status: Acute (2) Paroxysmal atrial fibrillation Current visit: No Status: Chronic (3) Essential (primary) hypertension Current visit: No Status: Chronic (4) Bronchitis Current visit: No Status: Acute (5) ICD (implantable cardioverter-defibrillator) in place Current visit: No Status: Chronic - Assessment and Plan Acute on chronic systolic congestive heart failure PAF, chronic HTN Cardiomyopathy, EF 30% per 01/2017 ECHO AICD Bronchitis 3/10/18: Rate up to 160's in afib on tele this AM. IV dig .5mg IVP now, .25mg IVP in 4 hours. Start Coreg 25mg bid this evening, hold sbp <100. Pt got dose of diltiazem 180 this am. Not a full anticoagulation candidate due to personal hx of significant bleed. Bumex 2mg IVP now, then 0.5mg/hr Bumex gtt. Potassium 3.6 today, replace 20meq TID, follow renal function and lytes. Agree with fluid restriction and low Na diet. COPD, URI, DM managed per attending. 11/11/17: down 1kg, I&O -1800 since admit. Creatinine and lytes stable today. CxR today mild improvement of central venous congestion when compared to . DC bumex drip, resume home dosing of bumex to 2mg bid (dose increase just this week from Ashish OV). K 3.6 today, replace 20meq bid, follow labs. Rate well controlled on coreg 25mg bid, IV dig yesterday and short acting diltiazem 30mg q6 prn rate >120 (per attending order). Continue current AFib rate meds, consider changing back to home cardizem 180mg daily as bp allows. URI, COPD, DM2 management per attending, pt reporting improved cough with nebulizing tx's. This pt was seen and examined by Annmarie Willis APRN. Case discussed with Dr. Hinojosa, he is involved and directed pt plan. Hospital Course Summary Disclaimer: The visit summary below is not to be considered part of the above Progress Note. <Jonathan Hinojosa - Last Filed: 11/16/17 17:31> Exam Vital signs: Temperature 96.2 F L 11/16/17 15:05 Pulse Rate 72 11/16/17 17:22 Respiratory Rate 22 11/16/17 16:47 Blood Pressure 117/49 11/16/17 15:05 Pulse Oximetry 98 11/16/17 16:47 Inpatient Medications: Generic Name Dose Route Start Last Admin Trade Name Freq PRN Reason Stop Dose Admin Acetaminophen 1,300 mg 11/10/17 09:47 11/15/17 09:26 Tylenol Arthritis PO 1,300 mg BID PRN Administration Pain Albuterol/Ipratropium 3 ml 11/10/17 15:00 11/16/17 16:40 Duoneb AEROSOL 3 ml RTQID RODRIGO Administration Albuterol/Ipratropium 3 ml 11/10/17 14:16 Duoneb AEROSOL RTQID PRN Benzonatate 100 mg 11/13/17 11:02 11/16/17 09:29 Tessalon Perles PO 100 mg TID PRN Administration Cough Bisacodyl 10 mg 11/13/17 11:03 Dulcolax RECTALLY DAILY PRN Constipation Budesonide 0.5 mg 11/10/17 19:00 11/16/17 06:35 Pulmicort Inhalation AEROSOL 0.5 mg RTBID R[facility]RIGO Administration Bumetanide 2 mg 11/15/17 15:03 11/16/17 15:08 Bumex 1 Mg Tab PO 2 mg TID RODRIGO Administration Carbidopa/Levodopa 1 tab 11/10/17 15:00 11/16/17 15:08 Sinemet PO 1 tab TID RODRIGO Administration Carvedilol 25 mg 11/10/17 17:30 11/16/17 17:24 Coreg PO 25 mg BIDWM RODRIGO Administration Dextrose 1 ml 11/10/17 10:51 D50%W IVP PRN PRN Hypoglycemia Diltiazem HCl 30 mg 11/10/17 16:05 Cardizem Ir 30 Mg Tab PO Q6HR PRN FOR HR sustained >120 Diltiazem HCl 120 mg 11/13/17 10:30 11/16/17 09:30 Cardizem Cd 120 Mg PO 120 mg DAILY RODRIGO Administration Docusate Sodium 200 mg 11/10/17 21:00 11/15/17 20:41 Colace PO 200 mg HS RODRIGO Administration Gabapentin 600 mg 11/10/17 21:00 11/15/17 20:41 Neurontin PO 600 mg HS RODRIGO Administration Glucose 37.5 gm 11/10/17 10:51 Glutose 15 PO PRN PRN Hypoglycemia Guaifenesin/Dextromethorphan 10 ml 11/10/17 22:53 11/14/17 17:48 Robitussin Dm PO 10 ml Q4H PRN Administration Cough /Congestion Guaifenesin/Dextromethorphan 1 tab 11/13/17 21:00 11/16/17 10:02 Mucinex Dm PO 1 tab BID RODRIGO Administration Heparin Sodium (Porcine) 5,000 units 11/11/17 17:00 11/16/17 17:24 Heparin Sq SQ 5,000 units Q8HR RODRIGO Administration Cefepime HCl 1 gm/ Sodium 50 mls @ 100 mls/hr 11/12/17 09:45 11/16/17 10:30 Chloride IV Infused Q12H [facility] Infusion Vancomycin HCl 1,000 mg/ 250 mls @ 250 mls/hr 11/17/17 09:00 Sodium Chloride IV Q24H [facility] Insulin Human Regular 2 - 8 unit 11/10/17 10:51 11/16/17 14:54 Novolin R SQ 3 unit SS PRN Administration Hyperglycemia Protocol Lisinopril 5 mg 11/16/17 15:15 Prinivil PO DAILY RODRIGO Magnesium Hydroxide 30 ml 11/13/17 11:03 Mom PO DAILY PRN Constipation Menthol 1 lozenge 11/13/17 11:41 11/14/17 15:24 Ricola Sf MM 1 lozenge PRN PRN Administration Cough Metformin HCl 500 mg 11/14/17 10:30 11/16/17 09:30 Glucophage PO 500 mg WB RODRIGO Administration Multivitamins 1 tab 11/10/17 14:00 11/16/17 15:07 Total B + C PO 1 tab [id number] RODRIGO Administration Pantoprazole Sodium 20 mg 11/12/17 06:30 11/16/17 05:45 Protonix PO 20 mg ACB RODRIGO Administration Polyethylene Glycol 17 gm 11/13/17 11:03 Miralax PO DAILY PRN Constipation Potassium Chloride 20 meq 11/11/17 17:30 11/16/17 17:22 K-Dur 20 Meq Tablet PO 20 meq BIDWM RODRIGO Administration Ropinirole HCl 2 mg 11/10/17 15:00 11/16/17 15:07 Requip PO 2 mg TID RODRIGO Administration Silver Sulfadiazine 1 applic 11/11/17 09:00 11/16/17 09:31 Silvadene TOP 1 applic DAILY RODRIGO Administration Sodium Chloride 10 - 80 ml 11/09/17 21:40 11/16/17 09:33 Iv Flush IVF 10 ml PRN PRN Administration Flushing Sodium Chloride 500 ml 11/16/17 09:34 11/16/17 09:38 Normal Saline IV 500 ml PRN PRN Administration Sotalol HCl 20 mg 11/16/17 16:15 11/16/17 17:22 Betapace PO 20 mg DAILY RODRIGO Administration Tramadol HCl 50 mg 11/10/17 21:00 11/15/17 20:40 Ultram PO 50 mg HS RODRIGO Administration Discontinued Medications Generic Name Dose Route Start Last Admin Trade Name Werner PRN Reason Stop Dose Admin Acetazolamide 500 mg 11/15/17 09:24 11/15/17 11:46 Diamox PO 11/15/17 09:25 500 mg O ONE Administration Albuterol/Ipratropium 3 ml 11/09/17 21:44 11/09/17 21:54 Duoneb AEROSOL 11/09/17 21:45 3 ml O ONE Administration Azithromycin 500 mg 11/10/17 09:00 11/10/17 10:33 Zithromax PO Not Given DAILY RODRIGO Azithromycin 500 mg 11/10/17 21:00 11/11/17 21:08 Zithromax PO 500 mg HS RODRIGO Administration Budesonide 0.5 mg 11/09/17 21:44 11/09/17 21:54 Pulmicort Inhalation AEROSOL 11/09/17 21:45 0.5 mg O ONE Administration Bumetanide 1 mg 11/09/17 23:59 11/10/17 01:06 Bumex 1 Mg/4 Ml Inj. IVP 11/10/17 00:00 1 mg O ONE Administration Bumetanide 2 mg 11/10/17 21:00 Bumex 1 Mg Tab PO BID RODRIGO Bumetanide 2 mg 11/10/17 11:30 11/10/17 12:23 Bumex 1 Mg/4 Ml Inj. IVP 11/10/17 11:31 2 mg O ONE Administration Bumetanide 2 mg 11/11/17 17:30 11/15/17 09:23 Bumex 1 Mg Tab PO 2 mg BIDBS R[facility]RIGO Administration Carbidopa/Levodopa 1 tab 11/10/17 09:00 11/10/17 10:17 Sinemet PO Not Given TID R[facility]IGO Dexamethasone 8 mg 11/09/17 22:15 11/09/17 22:32 Decadron IVP 11/09/17 22:16 8 mg O ONE Administration Digoxin 500 mcg 11/10/17 11:25 11/10/17 12:14 Lanoxin IVP 11/10/17 11:26 500 mcg O ONE Administration Digoxin 125 mcg 11/10/17 16:00 11/10/17 16:40 Lanoxin IVP 11/10/17 16:01 125 mcg O ONE Administration Diltiazem HCl 120 mg 11/10/17 10:00 11/10/17 10:40 Cardizem Cd 120 Mg PO 120 mg DAILY RODRIGO Administration Docusate Sodium 200 mg 11/10/17 09:00 11/10/17 10:17 Colace PO Not Given BID R[facility]IGO Gabapentin 600 mg 11/10/17 22:00 11/10/17 01:09 Neurontin PO 600 mg DAILY R[facility]IGO Administration Guaifenesin 1,200 mg 11/10/17 21:00 11/13/17 08:09 Mucinex La PO 1,200 mg BID RODRIGO Administration Albumin Human 12.5 g/ IV 50 mls @ 50 mls/hr 11/09/17 23:59 11/10/17 02:07 Solution IV 11/10/17 00:58 Infused O ONE Infusion Bumetanide 25 mg/ IV Solution 100 mls @ 2 mls/hr 11/10/17 12:00 11/11/17 10: 30 IV Infused Q24H [facility] Infusion Ceftriaxone Sodium 1 g/ Sodium 100 mls @ 200 mls/hr 11/10/17 16:15 11/10/17 17:55 Chloride IV Infused Q24H [facility] Infusion Ceftriaxone Sodium 1 g/ Sodium 50 mls @ 200 mls/hr 11/11/17 09:00 11/13/17 07 :56 Chloride IV Not Given Q24HR [facility] Sodium Chloride 500 mls @ 10 mls/hr 11/10/17 21:39 11/12/17 02:02 Normal Saline IV Not Given .Q24H [facility] Vancomycin HCl 1,500 mg/ 500 mls @ 250 mls/hr 11/12/17 10:30 11/13/17 07:56 Sodium Chloride IV 11/12/17 12:29 Infused O ONE Infusion Vancomycin HCl 1,000 mg/ 250 mls @ 250 mls/hr 11/13/17 04:30 11/14/17 18:51 Sodium Chloride IV Infused Q18H [facility] Infusion Vancomycin HCl 1,000 mg/ 250 mls @ 250 mls/hr 11/15/17 12:00 11/16/17 07:14 Sodium Chloride IV Infused Q18H [facility] Infusion Insulin Human Regular 12 unit 11/10/17 11:00 11/10/17 12:11 Novolin R SQ 11/10/17 11:01 12 unit O ONE Administration Insulin Human Regular 12 unit 11/10/17 16:15 11/10/17 16:40 Novolin R SQ 11/10/17 16:16 12 unit O ONE Administration Lisinopril 2.5 mg 11/16/17 09:15 11/16/17 10:01 Prinivil PO 2.5 mg DAILY RODRIGO Administration Potassium Chloride 20 meq 11/11/17 09:00 11/11/17 09:30 K-Dur 20 Meq Tablet PO Not Given DAILY R[facility]RIGO Potassium Chloride 20 meq 11/10/17 12:00 11/11/17 09:36 K-Dur 20 Meq Tablet PO 20 meq TIDWM [facility] Administration Potassium Chloride 20 meq 11/13/17 12:30 11/13/17 12:18 K-Dur 20 Meq Tablet PO 11/13/17 12:31 20 meq O ONE Administration Ropinirole HCl 2 mg 11/10/17 09:00 11/10/17 10:33 Requip PO Not Given TID RODRIGO Sotalol HCl 20 mg 11/16/17 09:00 Betapace PO DAILY R[facility] Tramadol HCl 50 mg 11/10/17 21:00 11/10/17 01:08 Ultram PO 50 mg HS [facility]IGO Administration Vancomycin HCl 1 each 11/12/17 09:12 11/13/17 07:30 Pharmacy Consult - Vancomycin MC 11/12/17 09:13 1 each O ONE Administration Results 11/15/17 04:27 11/16/17 09:25 Comprehensive Metabolic Panel 11/16/17 Range/Units 09:25 Sodium 143 (134-144) MEQ/L Potassium 4.2 (3.6-5) MEQ/L Chloride 98 (98-107) MEQ/L Carbon Dioxide 34 H (22-30) MEQ/L BUN 32.0 H (9-20) MG/DL Creatinine 1.4 D (0.8-1.5) mg/dL Glucose 86 (75-110) MG/DL Calcium 8.9 (8.4-10.2) MG/DL Intake and Output 11/16/17 11/16/17 11/16/17 06:59 14:59 22:59 Intake Total 100 / 100 910 / 910 Output Total 200 / 200 350 / 350 Balance 100 / 100 710 / 710 -350 / -350 Intake: IV 300 / 300 Cefepime 1 gm In Ns 50 ml @ 100 50 / 50 mls/hr IV Q12H [facility] Rx#: [id number] Vancomycin 1,000 mg In NS 250ml 250 / 250 250 ml @ 250 mls/hr IV Q18H [facility] Rx#:[id number] Oral 100 / 100 610 / 610 Output: Urine 200 / 200 350 / 350 Other: Urine Appearance Clear Clear Urine Color Bright Yellow Bright Yellow Urine Odor Normal Normal Stool Color Brown Stool Consistency Soft Size of Bowel Movement Moderate # Voids 1 2 1 # Incontinent Voids 1 Assessment and Plan - Assessment and Plan (1) Acute on chronic systolic (congestive) heart failure Current visit: No Status: Acute (2) Paroxysmal atrial fibrillation Current visit: No Status: Chronic (3) Essential (primary) hypertension Current visit: No Status: Chronic (4) ICD (implantable cardioverter-defibrillator) in place Current visit: No Status: Chronic (5) Bronchitis Current visit: No Status: Acute (6) Cardiomyopathy Current visit: Yes Status: Chronic - Attestation Attestation Narrative: 11/16/17 17:31 Recommendation I agree with the above and I am involved in the formulation of the patient's plan of care. Hospital Course Summary Disclaimer: The visit summary below is not to be considered part of the above Progress Note.
[2017-11-11] MEDS: INSULIN REGULAR, HUMAN 100 UNIT/ML INJECTION SQ PRN ×3 (11:44→21:11)
--- NOTE | 2017-11-11 13:09 | Progress Note ---
- Date 11/11/17 Subjective: 77 yo M with PMH of COPD and CHF presented to the ED with reports of productive cough and SOA. Pt tells me this has been coming on ever since he had his teeth pulled 3 weeks ago. He had 5 teeth out and 3 were "infected". He states he has had progressive SOA with cough since then. He has been coughing up yellow sputum. Patient was seen in the emergency room earlier in the week on 11/06. He was given nebulizer treatments and discharged home. He did see Dr. Hinojosa on Tuesday 11/07. At that time Cardizem and Bumex doses were both increased. Since that time, his breathing has worsened. He presented back to the ED and was found to have a fever. He was subsequently admitted for further eval. When seen by me he appears comfortable. His appears euvolemic. He denies fevers or chills but states his room is cold. He coughed up some phlegm yesterday but none so far today. He is breathing much better than when he came in. He is on RA. He has "dizziness" that is not new and comes and goes. He describes it as off balance. No lightheadedness. No Chest pain or palp. No N/V/D/C. No m/h. No complaints. No edema. Today, he continues to feel a bit better. He is still pretty winded when up to the BR. Continues to have a cough. He continues to wheeze and have poor air movement. He denies fever or chills. He is on RA. He denies N/V/D/C/H/M. No complaints. No edema. Objective Vital signs: Temperature 95.1 F L 11/11/17 08:30 Pulse Rate 78 11/11/17 08:30 Respiratory Rate 18 11/11/17 10:31 Blood Pressure 147/79 H 11/11/17 08:30 Pulse Oximetry 96 11/11/17 10:31 Rhythm: Second Degree AV Block Type I and 2:1 AV Block Height/Weight/BMI: Height 1.65 m Weight 66.5 kg Body Mass Index 25.0 Comments: Gen: alert and oriented. NAD. Pleasant and conversive Skin: warm and dry. HEENT: NC/AT PERRL, EOMI, Sclera,lids and conjunctiva wnl. MMM. OP clear. Neck: supple. No JVD. Carotids 2+ without bruits Lungs: diminished BS with bilateral wheezes and coarse BS. No rales CV: Irregular rhythm. Tachy at times. Soft murmur. No edema. Pedal pulses are palpable bilaterally Abd: soft. +BS. NT/ND MS: Good strength and ROM. Neuro: no focal deficit. Psy: normal mood and affect. Results - Labs CBC & Chem 7: 11/11/17 04:18 11/11/17 04:18 Microbiology Results: Microbiology 11/10/17 01:25 Sputum, Expectorated Gram Stain - Final 11/10/17 01:25 Sputum, Expectorated Sputum Culture - Preliminary Staphylococcus aureus Gram Negative Yasmani Assessment and Plan (1) Acute on chronic systolic (congestive) heart failure Current visit: No Status: Acute (2) Bronchitis Current visit: No Status: Acute Assessment and Plan: Assessment and Plan: (1) Bronchitis/COPD exacerbation with fever at presentation -Resp therapy -Pt reports "allergy" to steroids. He reports they make him "mean" -On azithromycin and ceftriaxone. (2) Acute on chronic non ischemic systolic heart failure -EF 20% -s/p ICD -Dr. Hinojosa consulted -Bumex drip changed to BID dosing -High Pro-BNP likely from poor systolic function and afib. (3) Atrial fibrillation -Tachy-Improved rates -Coreg -PRN diltiazem for HR >120 sustained -Dig loaded. -[id number] = 5 -PPM/ICD in place -Not on OAC (4) COPD -Exacerbation -Resp therapy -budesonide. (5) DM -SSI -Hold home metformin (6) JEANNA -Bipap at night -He usually goes to bed with it but rarely wakes up with it on. He is unsure how longs he actually wears it at night. (7) RLS -continue Requip (8) HTN -Continue coreg -change diltiazem to prn for hr/bp (9) Parkinsons disease -Continue Sinemet (10) Prophylaxis -PPI and SQ heparin Needs to be ambulating. Will ask PT to eval and treat. - Physician Narrative Narrative: Date: 11/11/17 Time: 1305 Hospital Course Summary Disclaimer: The visit summary below is not to be considered part of the above Progress Note.
[2017-11-11] MEDS: BUMETANIDE 1 MG TABLET PO SCH (17:53)
[2017-11-11] MEDS: HEPARIN SUB-Q 5,000units/0.5ml INJECTION SQ SCH (17:53)
[2017-11-11] MEDS: AZITHROMYCIN 500 MG TABLET PO SCH (21:08)
[2017-11-11] MEDS: GABAPENTIN 600 MG TABLET PO SCH (21:08)
[2017-11-11] MEDS: TRAMADOL 50 MG TABLET PO SCH (21:09)
[2017-11-11] MEDS: DOCUSATE SODIUM 100 MG CAPSULE PO SCH (21:10)
[2017-11-12] MEDS: HEPARIN SUB-Q 5,000units/0.5ml INJECTION SQ SCH ×3 (01:41→17:18)
[2017-11-12] MEDS: PANTOPRAZOLE 20 MG TABLET PO SCH (06:20)
[2017-11-12] MEDS: GUAIFENESIN/DM 5ml ORAL LIQUID PO PRN ×3 (06:30→17:18)
[2017-11-12] MEDS: BUDESONIDE INH.SOLN 0.5mg/2ml NEB AEROSOL SCH ×2 (06:35→19:43)
[2017-11-12] MEDS: ALBUTEROL/IPRATROPIUM 2.5mg-0.5mg/3ml NEB AEROSOL SCH ×4 (06:35→19:44)
[2017-11-12] MEDS: BUMETANIDE 1 MG TABLET PO SCH ×2 (08:31→17:17)
[2017-11-12] MEDS: CARVEDILOL 25 MG TABLET PO SCH ×2 (08:31→17:18)
[2017-11-12] MEDS ORDERED: VANCOMYCIN - PHARMACY CONSULT MC ONE (09:12)
--- NOTE | 2017-11-12 09:30 | Progress Note ---
- Date 11/12/17 Subjective: Almas is seen this morning in follow up. She is sitting up on the edge of the bed and reports he continues to have significant amount of sputum production. Overall he feels better than he did at time of admission. Breath sound continues to be course with mild expiratory wheezes. Denies having chest pain, abdominal pain or other GI complaints. Objective Vital signs: Temperature 96.2 F L 11/12/17 07:34 Pulse Rate 77 11/12/17 07:34 Respiratory Rate 18 11/12/17 07:34 Blood Pressure 141/78 H 11/12/17 07:34 Pulse Oximetry 92 11/12/17 07:34 Height/Weight/BMI: Height 1.65 m Weight 67.3 kg Body Mass Index 25.0 - Constitutional Present: no acute distress, well nourished, well developed - Routine Respiratory Exam Present: wheezes Comments: Course breath sounds bilaterally posterior - Routine Cardiovascular Exam Present: RRR, S1, S2. Absent: murmur - Routine Abdominal Exam Present: soft, normoactive bowel sounds - Routine Extremities Exam Present: full ROM, pulses intact - Routine Back/Spine/Pelvis Exam Back/Spine: Present: full ROM - Routine Skin Exam Present: intact, dry, warm - Routine Neurological Exam Present: alert, oriented X3, CN II-XII intact, moving all extremities - Routine Psychiatric Exam Present: normal affect, cooperative Results - Labs CBC & Chem 7: 11/12/17 04:40 11/12/17 04:40 Microbiology Results: Microbiology 11/10/17 01:25 Sputum, Expectorated Gram Stain - Final 11/10/17 01:25 Sputum, Expectorated Sputum Culture - Final Staphylococcus aureus, MRSA Pseudomonas aeruginosa Normal Respiratory Yue Assessment and Plan (1) Acute on chronic systolic (congestive) heart failure Current visit: No Status: Acute (2) Bronchitis Current visit: No Status: Acute Assessment and Plan: Impression Bronchitis/COPD exacerbation with fever at presentation +MRSA and + Pseudomonas Aeruginosa in Sputum C/S Hypernatremia - POA Acute on chronic non-ischemic systolic heart failure Atrial fibrillation COPD Diabetes JEANNA RLS HTN Parkinsons disease Plan Discontinue Rocephin and Azithromycin. Start Cefepime and Vanco for better coverage of MRSA and Pseudomonas in sputum C/S Overall weight is trending down with diuretics. Bumex drip was stopped and he is currently on normal home regimen. Weight trending down. Appreciate cardiac consultation- Continues on Coreg and Cardizem Continue with scheduled nebulizers and acapella Overall BGMs have been well controlled Heparin subcutaneous for DVT prophylaxis Case discussed with attending, Dr Wang DVT Prophylaxis: SQ Heparin Resuscitation Status: Full Code - Time spent with patient Time with patient PN: 25 minutes - Physician Narrative Physician: Frank Wang MD Narrative: Date: 11/12/17 Time: 1805 Have independently interviewed and examined pt. Chart reviewed. Case discussed with my APPLIANCE COUNSELOR. Care plan developed with my supervision; agree with above. Feeling better this afternoon-reports last dose of Mucinex really helped out. Less SOA. Still with cough. No chest pain. Strength decreased-winded/fatigues with activities. No nausea. Lungs: decreased and very course bilaterally. Occasional cough during evaluation. CV: distant, obscured by lung tones. MSE: awake alert Plan: Cefepime and vanco to cover pathogens in sputum. Continue Neb treatments. Diuretics decreased by cardiology-monitor lab. Hospital Course Summary Disclaimer: The visit summary below is not to be considered part of the above Progress Note. Hospital Course: 11/10 (1) Bronchitis/COPD exacerbation with fever at presentation -Resp therapy -Pt reports "allergy" to steroids. He reports they make him "mean" -On azithromycin (2) Acute on chronic non ischemic systolic heart failure -EF 20% -s/p ICD -Dr. Hinojosa consulted -Bumex drip ordered -High Pro-BNP likely from poor systolic function and afib. (3) Atrial fibrillation -Tachy -Resume coreg -PRN diltiazem for HR >120 sustained -Dig 0.5mg IV now and then 0.25 in 6 hours times one -[id number] = -PPM/ICD in place (4) COPD -Exacerbation -Resp therapy (5) DM -SSI -Hold home metformin (6) JEANNA -Bipap at night -He usually goes to bed with it but rarely wakes up with it on. He is unsure how longs he actually wears it at night. (7) RLS -continue Requip (8) HTN -Continue coreg -change diltiazem to prn for hr/bp (9) Parkinsons disease -Continue Sinemet (10) Prophylaxis -PPI and SQ heparin 11/11 Needs to be ambulating. Will ask PT to eval and treat. 11/12 Discontinue Rocephin and Azithromycin. Start Cefepime and Vanco for better coverage of MRSA and Pseudomonas in sputum C/S Overall weight is trending down with diuretics. Bumex drip was stopped and he is currently on normal home regimen. Weight trending down. Appreciate cardiac consultation- Continues on Coreg and Cardizem Continue with scheduled nebulizers and acapella Overall BGMs have been well controlled Heparin subcutaneous for DVT prophylaxis
--- NOTE | 2017-11-12 09:45 | Pharmacy Consult-Antibiotics ---
Pharmacy Consult-Vancomycin - Laboratory Information WBC 9.6 T/MM3 (4.5-11.0) 11/12/17 04:40 BUN 53.0 MG/DL (9-20) H* 11/12/17 04:40 Creatinine 1.4 mg/dL (0.8-1.5) D 11/12/17 04:40 - Consult Information Pharmacy vancomycin consult noted for Mr Aviles, who is 77 years old and has an exacerbation of his COPD. +MRSA and + Pseudomonas Aeruginosa in Sputum C/S. Will give a vancomycin loading dose of 1500mg followed by vancomycin 1000mg IV q18h. Will continue to monitor. Thank you.
[2017-11-12] MEDS: VITAMIN B COMPLEX + C TABLET PO SCH ×2 (09:52→14:52)
[2017-11-12] MEDS: GUAIFENESIN LA 600 MG TABLET PO SCH ×2 (09:52→21:54)
[2017-11-12] MEDS: ROPINIROLE 2 MG TABLET PO SCH ×3 (09:52→21:53)
[2017-11-12] MEDS: CEFEPIME 1 GM in NS 50 ML IV SCH ×2 (10:23→21:53)
[2017-11-12 10:36] VITALS: BMI 24.7
--- NOTE | 2017-11-12 11:10 | Cardiology Progress Note ---
<Rhonda Adames - Last Filed: 11/14/17 11:39> Subjective Principal diagnosis: CHF exacerbation, URI, COPD exacerbation Interval history: Almas is seen in follow up for CHF exacerbation, URI, COPD exacerbation. He states he's better, but not to baseline yet. His plans for the day include a nap and a walk with the nurse. He denies chest pain, pressure, palpitations or dizziness. He is positive for MRSA in the sputum and had a run of NSVT, ICD did not discharge according to patient. Exam Vital signs: Temperature 96.2 F L 11/12/17 07:34 Pulse Rate 77 11/12/17 07:34 Respiratory Rate 18 11/12/17 07:34 Blood Pressure 141/78 H 11/12/17 07:34 Pulse Oximetry 92 11/12/17 07:34 Inpatient Medications: Generic Name Dose Route Start Last Admin Trade Name Freq PRN Reason Stop Dose Admin Acetaminophen 1,300 mg 11/10/17 09:47 Tylenol Arthritis PO BID PRN Pain Albuterol/Ipratropium 3 ml 11/10/17 15:00 11/12/17 06:35 Duoneb AEROSOL 3 ml RTQID RODRIGO Administration Albuterol/Ipratropium 3 ml 11/10/17 14:16 Duoneb AEROSOL RTQID PRN Budesonide 0.5 mg 11/10/17 19:00 11/12/17 06:35 Pulmicort Inhalation AEROSOL 0.5 mg RTBID RODRIGO Administration Bumetanide 2 mg 11/11/17 17:30 11/12/17 08:31 Bumex 1 Mg Tab PO 2 mg BIDBS RODRIGO Administration Carbidopa/Levodopa 1 tab 11/10/17 15:00 11/12/17 09:52 Sinemet PO 1 tab TID RODRIGO Administration Carvedilol 25 mg 11/10/17 17:30 11/12/17 08:31 Coreg PO 25 mg BIDWM RODRIGO Administration Dextrose 1 ml 11/10/17 10:51 D50%W IVP PRN PRN Hypoglycemia Diltiazem HCl 30 mg 11/10/17 16:05 Cardizem Ir 30 Mg Tab PO Q6HR PRN FOR HR sustained >120 Docusate Sodium 200 mg 11/10/17 21:00 11/11/17 21:10 Colace PO 200 mg HS RODRIGO Administration Gabapentin 600 mg 11/10/17 21:00 11/11/17 21:08 Neurontin PO 600 mg HS RODRIGO Administration Glucose 37.5 gm 11/10/17 10:51 Glutose 15 PO PRN PRN Hypoglycemia Guaifenesin 1,200 mg 11/10/17 21:00 11/12/17 09:52 Mucinex La PO 1,200 mg BID RODRIGO Administration Guaifenesin/Dextromethorphan 10 ml 11/10/17 22:53 11/12/17 06:30 Robitussin Dm PO 10 ml Q4H PRN Administration Cough /Congestion Heparin Sodium (Porcine) 5,000 units 11/11/17 17:00 11/12/17 09:52 Heparin Sq SQ 5,000 units Q8HR RODRIGO Administration Cefepime HCl 1 gm/ Sodium 50 mls @ 100 mls/hr 11/12/17 09:45 11/12/17 10:23 Chloride IV 100 mls/hr Q12H RODRIGO Administration Vancomycin HCl 1,500 mg/ 500 mls @ 250 mls/hr 11/12/17 10:30 Sodium Chloride IV 11/12/17 12:29 O ONE Vancomycin HCl 1,000 mg/ 250 mls @ 250 mls/hr 11/13/17 04:30 Sodium Chloride IV Q18H RODRIGO Insulin Human Regular 2 - 8 unit 11/10/17 10:51 11/11/17 21:11 Novolin R SQ 2 unit SS PRN Administration Hyperglycemia Protocol Multivitamins 1 tab 11/10/17 14:00 11/12/17 09:52 Total B + C PO 1 tab [id number] RODRIGO Administration Pantoprazole Sodium 20 mg 11/12/17 06:30 11/12/17 06:20 Protonix PO 20 mg ACB RODRIGO Administration Potassium Chloride 20 meq 11/11/17 17:30 11/12/17 08:32 K-Dur 20 Meq Tablet PO 20 meq BIDWM RODRIGO Administration Ropinirole HCl 2 mg 11/10/17 15:00 11/12/17 09:52 Requip PO 2 mg TID RODRIGO Administration Silver Sulfadiazine 1 applic 11/11/17 09:00 11/11/17 09:41 Silvadene TOP 1 applic DAILY RODRIGO Administration Sodium Chloride 10 - 80 ml 11/09/17 21:40 11/10/17 17:55 Iv Flush IVF 50 ml PRN PRN Administration Flushing Tramadol HCl 50 mg 11/10/17 21:00 11/11/17 21:09 Ultram PO 50 mg HS RODRIGO Administration Discontinued Medications Generic Name Dose Route Start Last Admin Trade Name Magdielq PRN Reason Stop Dose Admin Albuterol/Ipratropium 3 ml 11/09/17 21:44 11/09/17 21:54 Duoneb AEROSOL 11/09/17 21:45 3 ml O ONE Administration Azithromycin 500 mg 11/10/17 09:00 11/10/17 10:33 Zithromax PO Not Given DAILY RODRIGO Azithromycin 500 mg 11/10/17 21:00 11/11/17 21:08 Zithromax PO 500 mg HS RODRIGO Administration Budesonide 0.5 mg 11/09/17 21:44 11/09/17 21:54 Pulmicort Inhalation AEROSOL 11/09/17 21:45 0.5 mg O ONE Administration Bumetanide 1 mg 11/09/17 23:59 11/10/17 01:06 Bumex 1 Mg/4 Ml Inj. IVP 11/10/17 00:00 1 mg O ONE Administration Bumetanide 2 mg 11/10/17 21:00 Bumex 1 Mg Tab PO BID RODRIGO Bumetanide 2 mg 11/10/17 11:30 11/10/17 12:23 Bumex 1 Mg/4 Ml Inj. IVP 11/10/17 11:31 2 mg O ONE Administration Carbidopa/Levodopa 1 tab 11/10/17 09:00 11/10/17 10:17 Sinemet PO Not Given TID [facility] Dexamethasone 8 mg 11/09/17 22:15 11/09/17 22:32 Decadron IVP 11/09/17 22:16 8 mg O ONE Administration Digoxin 500 mcg 11/10/17 11:25 11/10/17 12:14 Lanoxin IVP 11/10/17 11:26 500 mcg O ONE Administration Digoxin 125 mcg 11/10/17 16:00 11/10/17 16:40 Lanoxin IVP 11/10/17 16:01 125 mcg O ONE Administration Diltiazem HCl 120 mg 11/10/17 10:00 11/10/17 10:40 Cardizem Cd 120 Mg PO 120 mg DAILY RODRIGO Administration Docusate Sodium 200 mg 11/10/17 09:00 11/10/17 10:17 Colace PO Not Given BID RODRIGO Gabapentin 600 mg 11/10/17 22:00 11/10/17 01:09 Neurontin PO 600 mg DAILY RODRIGO Administration Albumin Human 12.5 g/ IV 50 mls @ 50 mls/hr 11/09/17 23:59 11/10/17 02:07 Solution IV 11/10/17 00:58 Infused O ONE Infusion Bumetanide 25 mg/ IV Solution 100 mls @ 2 mls/hr 11/10/17 12:00 11/11/17 10: 30 IV Infused Q24H RODRIGO Infusion Ceftriaxone Sodium 1 g/ Sodium 100 mls @ 200 mls/hr 11/10/17 16:15 11/10/17 17:55 Chloride IV Infused Q24H RODRIGO Infusion Ceftriaxone Sodium 1 g/ Sodium 50 mls @ 200 mls/hr 11/11/17 09:00 11/11/17 09 :56 Chloride IV Infused Q24HR RODRIGO Infusion Sodium Chloride 500 mls @ 10 mls/hr 11/10/17 21:39 11/12/17 02:02 Normal Saline IV Not Given .Q24H RODRIGO Insulin Human Regular 12 unit 11/10/17 11:00 11/10/17 12:11 Novolin R SQ 11/10/17 11:01 12 unit O ONE Administration Insulin Human Regular 12 unit 11/10/17 16:15 11/10/17 16:40 Novolin R SQ 11/10/17 16:16 12 unit O ONE Administration Potassium Chloride 20 meq 11/11/17 09:00 11/11/17 09:30 K-Dur 20 Meq Tablet PO Not Given DAILY RODRIGO Potassium Chloride 20 meq 11/10/17 12:00 11/11/17 09:36 K-Dur 20 Meq Tablet PO 20 meq TIDWM RODRIGO Administration Ropinirole HCl 2 mg 11/10/17 09:00 11/10/17 10:33 Requip PO Not Given TID RODRIGO Tramadol HCl 50 mg 11/10/17 21:00 11/10/17 01:08 Ultram PO 50 mg HS RODRIGO Administration Vancomycin HCl 1 each 11/12/17 09:12 Pharmacy Consult - Vancomycin MC 11/12/17 09:13 O ONE - Constitutional well nourished, cooperative - Routine HEENT Exam Head: Present: normocephalic ENT: Present: mucous membranes moist - Routine Neck Exam Absent: JVD, carotid bruit - Routine Chest/Breast/Axilla Exam Chest wall: Present: pacemaker. Absent: tenderness - Routine Respiratory Exam Present: rhonchi, wheezes. Absent: dyspnea, CTA bilaterally - Routine Cardiovascular Exam Present: irregular rhythm. Absent: JVD - Routine Abdominal Exam Present: soft, normoactive bowel sounds - Routine Extremities Exam Present: edema - Routine Skin Exam Present: intact, dry, warm - Routine Neurological Exam Present: alert, oriented X3 - Routine Psychiatric Exam Present: normal affect, normal thought process - Additional findings Additional findings: Acetaminophen (Tylenol Arthritis) 1,300 mg PO BID PRN PRN Reason: Pain Albuterol/Ipratropium (Duoneb) 3 ml AEROSOL RTQID [facility] Last Admin: 11/12/17 06:35 Dose: 3 ml Albuterol/Ipratropium (Duoneb) 3 ml AEROSOL RTQID PRN Budesonide (Pulmicort Inhalation) 0.5 mg AEROSOL RTBID [facility] Last Admin: 11/12/17 06:35 Dose: 0.5 mg Bumetanide (Bumex 1 Mg Tab) 2 mg PO BIDBS [facility] Last Admin: 11/12/17 08:31 Dose: 2 mg Carbidopa/Levodopa (Sinemet) 1 tab PO TID [facility] Last Admin: 11/12/17 09:52 Dose: 1 tab Carvedilol (Coreg) 25 mg PO BIDWM [facility] Last Admin: 11/12/17 08:31 Dose: 25 mg Dextrose (D50%W) 1 ml IVP PRN PRN PRN Reason: Hypoglycemia Diltiazem HCl (Cardizem Ir 30 Mg Tab) 30 mg PO Q6HR PRN PRN Reason: FOR HR sustained >120 Docusate Sodium (Colace) 200 mg PO HS [facility] Last Admin: 11/11/17 21:10 Dose: 200 mg Gabapentin (Neurontin) 600 mg PO HS [facility] Last Admin: 11/11/17 21:08 Dose: 600 mg Glucose (Glutose 15) 37.5 gm PO PRN PRN PRN Reason: Hypoglycemia Guaifenesin (Mucinex La) 1,200 mg PO BID [facility] Last Admin: 11/12/17 09:52 Dose: 1,200 mg Guaifenesin/Dextromethorphan (Robitussin Dm) 10 ml PO Q4H PRN PRN Reason: Cough /Congestion Last Admin: 11/12/17 06:30 Dose: 10 ml Heparin Sodium (Porcine) (Heparin Sq) 5,000 units SQ Q8HR [facility] Last Admin: 11/12/17 09:52 Dose: 5,000 units Cefepime HCl 1 gm/ Sodium (Chloride) 50 mls @ 100 mls/hr IV Q12H [facility] Last Admin: 11/12/17 10:23 Dose: 100 mls/hr Vancomycin HCl 1,500 mg/ (Sodium Chloride) 500 mls @ 250 mls/hr IV O ONE Stop: 11/12/17 12:29 Vancomycin HCl 1,000 mg/ (Sodium Chloride) 250 mls @ 250 mls/hr IV Q18H [facility] Insulin Human Regular (Novolin R) 2 - 8 unit SQ SS PRN; Protocol PRN Reason: Hyperglycemia Last Admin: 11/11/17 21:11 Dose: 2 unit Multivitamins (Total B + C) 1 tab PO [id number] [facility] Last Admin: 11/12/17 09:52 Dose: 1 tab Pantoprazole Sodium (Protonix) 20 mg PO ACB [facility] Last Admin: 11/12/17 06:20 Dose: 20 mg Potassium Chloride (K-Dur 20 Meq Tablet) 20 meq PO BIDWM [facility] Last Admin: 11/12/17 08:32 Dose: 20 meq Ropinirole HCl (Requip) 2 mg PO TID [facility] Last Admin: 11/12/17 09:52 Dose: 2 mg Silver Sulfadiazine (Silvadene) 1 applic TOP DAILY [facility] Last Admin: 11/11/17 09:41 Dose: 1 applic Sodium Chloride (Iv Flush) 10 - 80 ml IVF PRN PRN PRN Reason: Flushing Last Admin: 11/10/17 17:55 Dose: 50 ml Tramadol HCl (Ultram) 50 mg PO HS [facility] Last Admin: 11/11/17 21:09 Dose: 50 mg Results 11/14/17 04:22 11/14/17 04:22 CBC 11/12/17 Range/Units 04:40 WBC 9.6 (4.5-11.0) T/MM3 RBC 4.63 (4.50-5.90) M/MM3 Hgb 13.5 D (13.5-17.5) GM/DL Hct 43.9 D (41-53) % Plt Count 192 (130-400) T/MM3 Neut # (Auto) 7.1 (1.8-7.7) T/MM3 Lymph # (Auto) 1.7 (1-4.8) T/MM3 [place] # (Auto) 0.8 (0-0.8) T/MM3 Eos # (Auto) 0.0 (0-0.5) T/MM3 Baso # (Auto) 0.0 (0-0.2) T/MM3 Comprehensive Metabolic Panel 11/12/17 Range/Units 04:40 Sodium 146 H (134-144) MEQ/L Potassium 3.7 (3.6-5) MEQ/L Chloride 94 L (98-107) MEQ/L Carbon Dioxide 41 H* (22-30) MEQ/L BUN 53.0 H* (9-20) MG/DL Creatinine 1.4 D (0.8-1.5) mg/dL Glucose 137 H (75-110) MG/DL Calcium 9.0 (8.4-10.2) MG/DL Intake and Output 11/11/17 11/12/17 11/12/17 22:59 06:59 14:59 Intake Total 640 / 640 100 / 100 360 / 360 Output Total 250 / 250 925 / 925 400 / 400 Balance 390 / 390 -825 / -825 -40 / -40 Intake: Oral 640 / 640 100 / 100 360 / 360 Output: Urine 250 / 250 925 / 925 400 / 400 Other: Urine Appearance Clear Clear Clear Urine Color Yellow Yellow Yellow Urine Odor Normal Strong Normal # Voids 1 1 # Incontinent Voids 1 Weight 148 lb 5.938 oz Patient Weight 11/13/17 06:59 Weight 148 lb 5.938 oz - Imaging and Cardiology Imaging & Cardiology Narrative: Date of Exam: 11/11/17 Ordering Provider: Amarilis Guerrero MD Type of Exam(s): XR chest 2V Reason for Exam(s): Hypoxia/HF INDICATION: Hypoxia/HF PROCEDURE: CHEST 2-VIEWS UPRIGHT (PA & LAT) Encounter: Initial COMPARISON: November 09, 2017 FINDINGS: Interval improvement in mild interstitial prominence and hyperinflation. No pleural effusions. No pneumothorax. Heart size and mediastinal contours are stable left pacemaker defibrillator. Impression: Improving CHF. 11/13/17 09:45 Assessment and Plan - Assessment and Plan (1) Bronchitis Status: Acute (2) Acute on chronic systolic (congestive) heart failure Status: Acute (3) Paroxysmal atrial fibrillation Status: Chronic (4) Essential (primary) hypertension Status: Chronic (5) ICD (implantable cardioverter-defibrillator) in place Status: Chronic - Assessment and Plan 11/10/17: Rate up to 160's in afib on tele this AM. IV dig .5mg IVP now, .25mg IVP in 4 hours. Start Coreg 25mg bid this evening, hold sbp <100. Pt got dose of diltiazem 180 this am. Not a full anticoagulation candidate due to personal hx of significant bleed. Bumex 2mg IVP now, then 0.5mg/hr Bumex gtt. Potassium 3.6 today, replace 20meq TID, follow renal function and lytes. Agree with fluid restriction and low Na diet. COPD, URI, DM managed per attending. 11/11/17: down 1kg, I&O -1800 since admit. Creatinine and lytes stable today. CxR today mild improvement of central venous congestion when compared to . DC bumex drip, resume home dosing of bumex to 2mg bid (dose increase just this week from Ashish YODER). K 3.6 today, replace 20meq bid, follow labs. Rate well controlled on coreg 25mg bid, IV dig yesterday and short acting diltiazem 30mg q6 prn rate >120 (per attending order). Continue current AFib rate meds, consider changing back to home cardizem 180mg daily as bp allows. URI, COPD, DM2 management per attending, pt reporting improved cough with nebulizing tx's. 11/12/17 +MRSA and + Pseudomonas Aeruginosa in Sputum C/S - BNP in am Hospital Course Summary Disclaimer: The visit summary below is not to be considered part of the above Progress Note. Hospital Course: 11/11 (1) Bronchitis/COPD exacerbation with fever at presentation -Resp therapy -Pt reports "allergy" to steroids. He reports they make him "mean" -On azithromycin (2) Acute on chronic non ischemic systolic heart failure -EF 20% -s/p ICD -Dr. Hinojosa consulted -Bumex drip ordered -High Pro-BNP likely from poor systolic function and afib. (3) Atrial fibrillation -Tachy -Resume coreg -PRN diltiazem for HR >120 sustained -Dig 0.5mg IV now and then 0.25 in 6 hours times one -[id number] = -PPM/ICD in place (4) COPD -Exacerbation -Resp therapy (5) DM -SSI -Hold home metformin (6) JEANNA -Bipap at night -He usually goes to bed with it but rarely wakes up with it on. He is unsure how longs he actually wears it at night. (7) RLS -continue Requip (8) HTN -Continue coreg -change diltiazem to prn for hr/bp (9) Parkinsons disease -Continue Sinemet (10) Prophylaxis -PPI and SQ heparin 11/12 Discontinue Rocephin and Azithromycin. Start Cefepime and Vanco for better coverage of MRSA and Pseudomonas in sputum C/S Overall weight is trending down with diuretics. Bumex drip was stopped and he is currently on normal home regimen. Weight trending down. Appreciate cardiac consultation- Continues on Coreg and Cardizem Continue with scheduled nebulizers and acapella Overall BGMs have been well controlled Heparin subcutaneous for DVT prophylaxis Case discussed with attending, Dr Wang <Jonathan Hinojosa - Last Filed: 11/21/17 12:33> Exam Vital signs: Temperature 95.4 F L 11/19/17 15:05 Pulse Rate 50 L 11/19/17 15:05 Respiratory Rate 18 11/19/17 15:05 Blood Pressure 121/62 11/19/17 15:05 Pulse Oximetry 93 11/19/17 15:05 Inpatient Medications: Discontinued Medications Generic Name Dose Route Start Last Admin Trade Name Freq PRN Reason Stop Dose Admin Acetaminophen 1,300 mg 11/10/17 09:47 11/15/17 09:26 Tylenol Arthritis PO 1,300 mg BID PRN Administration Pain Acetazolamide 500 mg 11/15/17 09:24 11/15/17 11:46 Diamox PO 11/15/17 09:25 500 mg O ONE Administration Albuterol/Ipratropium 3 ml 11/09/17 21:44 11/09/17 21:54 Duoneb AEROSOL 11/09/17 21:45 3 ml O ONE Administration Albuterol/Ipratropium 3 ml 11/10/17 15:00 11/19/17 14:48 Duoneb AEROSOL 3 ml RTQID RODRIGO Administration Albuterol/Ipratropium 3 ml 11/10/17 14:16 Duoneb AEROSOL RTQID PRN Azithromycin 500 mg 11/10/17 09:00 11/10/17 10:33 Zithromax PO Not Given DAILY RODRIGO Azithromycin 500 mg 11/10/17 21:00 11/11/17 21:08 Zithromax PO 500 mg HS RODRIGO Administration Benzonatate 100 mg 11/13/17 11:02 11/16/17 09:29 Tessalon Perles PO 100 mg TID PRN Administration Cough Bisacodyl 10 mg 11/13/17 11:03 Dulcolax RECTALLY DAILY PRN Constipation Budesonide 0.5 mg 11/09/17 21:44 11/09/17 21:54 Pulmicort Inhalation AEROSOL 11/09/17 21:45 0.5 mg O ONE Administration Budesonide 0.5 mg 11/10/17 19:00 11/19/17 06:34 Pulmicort Inhalation AEROSOL 0.5 mg RTBID RODRIGO Administration Bumetanide 1 mg 11/09/17 23:59 11/10/17 01:06 Bumex 1 Mg/4 Ml Inj. IVP 11/10/17 00:00 1 mg O ONE Administration Bumetanide 2 mg 11/10/17 21:00 Bumex 1 Mg Tab PO BID RODRIGO Bumetanide 2 mg 11/10/17 11:30 11/10/17 12:23 Bumex 1 Mg/4 Ml Inj. IVP 11/10/17 11:31 2 mg O ONE Administration Bumetanide 2 mg 11/11/17 17:30 11/15/17 09:23 Bumex 1 Mg Tab PO 2 mg BIDBS RODRIGO Administration Bumetanide 2 mg 11/15/17 15:03 11/18/17 09:43 Bumex 1 Mg Tab PO 2 mg TID RODRIGO Administration Bumetanide 2 mg 11/18/17 14:00 11/19/17 15:57 Bumex 1 Mg Tab PO 2 mg [id number] RODRIGO Administration Carbidopa/Levodopa 1 tab 11/10/17 09:00 11/10/17 10:17 Sinemet PO Not Given TID RODRIGO Carbidopa/Levodopa 1 tab 11/10/17 15:00 11/19/17 16:02 Sinemet PO 1 tab TID RODRIGO Administration Carvedilol 25 mg 11/10/17 17:30 11/19/17 08:51 Coreg PO 25 mg BIDWM RODRIGO Administration Clotrimazole 10 mg 11/16/17 18:30 11/19/17 15:58 Mycelex Carlos Manuel MM 10 mg 5XD RODRIGO Administration Dexamethasone 8 mg 11/09/17 22:15 11/09/17 22:32 Decadron IVP 11/09/17 22:16 8 mg O ONE Administration Dextrose 1 ml 11/10/17 10:51 D50%W IVP PRN PRN Hypoglycemia Digoxin 500 mcg 11/10/17 11:25 11/10/17 12:14 Lanoxin IVP 11/10/17 11:26 500 mcg O ONE Administration Digoxin 125 mcg 11/10/17 16:00 11/10/17 16:40 Lanoxin IVP 11/10/17 16:01 125 mcg O ONE Administration Diltiazem HCl 120 mg 11/10/17 10:00 11/10/17 10:40 Cardizem Cd 120 Mg PO 120 mg DAILY RODRIGO Administration Diltiazem HCl 30 mg 11/10/17 16:05 Cardizem Ir 30 Mg Tab PO Q6HR PRN FOR HR sustained >120 Diltiazem HCl 120 mg 11/13/17 10:30 11/19/17 08:52 Cardizem Cd 120 Mg PO 120 mg DAILY RODRIGO Administration Docusate Sodium 200 mg 11/10/17 09:00 11/10/17 10:17 Colace PO Not Given BID RODRIGO Docusate Sodium 200 mg 11/10/17 21:00 11/18/17 20:09 Colace PO 200 mg HS RODRIGO Administration Gabapentin 600 mg 11/10/17 22:00 11/10/17 01:09 Neurontin PO 600 mg DAILY RODRIGO Administration Gabapentin 600 mg 11/10/17 21:00 11/18/17 20:09 Neurontin PO 600 mg HS RODRIGO Administration Glucose 37.5 gm 11/10/17 10:51 Glutose 15 PO PRN PRN Hypoglycemia Guaifenesin 1,200 mg 11/10/17 21:00 11/13/17 08:09 Mucinex La PO 1,200 mg BID RODRIGO Administration Guaifenesin/Dextromethorphan 10 ml 11/10/17 22:53 11/14/17 17:48 Robitussin Dm PO 10 ml Q4H PRN Administration Cough /Congestion Guaifenesin/Dextromethorphan 1 tab 11/13/17 21:00 11/19/17 08:50 Mucinex Dm PO 1 tab BID RODRIGO Administration Heparin Sodium (Porcine) 5,000 units 11/11/17 17:00 11/19/17 08:50 Heparin Sq SQ 5,000 units Q8HR RODRIGO Administration Albumin Human 12.5 g/ IV 50 mls @ 50 mls/hr 11/09/17 23:59 11/10/17 02:07 Solution IV 11/10/17 00:58 Infused O ONE Infusion Bumetanide 25 mg/ IV Solution 100 mls @ 2 mls/hr 11/10/17 12:00 11/11/17 10: 30 IV Infused Q24H RODRIGO Infusion Ceftriaxone Sodium 1 g/ Sodium 100 mls @ 200 mls/hr 11/10/17 16:15 11/10/17 17:55 Chloride IV Infused Q24H RODRIGO Infusion Ceftriaxone Sodium 1 g/ Sodium 50 mls @ 200 mls/hr 11/11/17 09:00 11/13/17 07 :56 Chloride IV Not Given Q24HR RODRIGO Sodium Chloride 500 mls @ 10 mls/hr 11/10/17 21:39 11/12/17 02:02 Normal Saline IV Not Given .Q24H RODRIGO Cefepime HCl 1 gm/ Sodium 50 mls @ 100 mls/hr 11/12/17 09:45 11/19/17 09:52 Chloride IV 100 mls/hr Q12H RODRIGO Administration Vancomycin HCl 1,500 mg/ 500 mls @ 250 mls/hr 11/12/17 10:30 11/13/17 07:56 Sodium Chloride IV 11/12/17 12:29 Infused O ONE Infusion Vancomycin HCl 1,000 mg/ 250 mls @ 250 mls/hr 11/13/17 04:30 11/16/17 21:25 Sodium Chloride IV Not Given Q18H RODRIGO Vancomycin HCl 1,000 mg/ 250 mls @ 250 mls/hr 11/15/17 12:00 11/16/17 07:14 Sodium Chloride IV Infused Q18H RODRIGO Infusion Vancomycin HCl 1,000 mg/ 250 mls @ 250 mls/hr 11/17/17 09:00 11/17/17 11:16 Sodium Chloride IV Infused Q24H RODRIGO Infusion Vancomycin HCl 1,250 mg/ 250 mls @ 200 mls/hr 11/18/17 18:00 11/18/17 19:30 Sodium Chloride IV Infused Q36H RODRIGO Infusion Insulin Human Regular 2 - 8 unit 11/10/17 10:51 11/19/17 15:56 Novolin R SQ 5 unit SS PRN Administration Hyperglycemia Protocol Insulin Human Regular 12 unit 11/10/17 11:00 11/10/17 12:11 Novolin R SQ 11/10/17 11:01 12 unit O ONE Administration Insulin Human Regular 12 unit 11/10/17 16:15 11/10/17 16:40 Novolin R SQ 11/10/17 16:16 12 unit O ONE Administration Lisinopril 2.5 mg 11/16/17 09:15 11/16/17 10:01 Prinivil PO 2.5 mg DAILY RODRIGO Administration Lisinopril 5 mg 11/16/17 15:15 Prinivil PO DAILY RODRIGO Lisinopril 2.5 mg 11/17/17 09:00 11/19/17 08:52 Prinivil PO 2.5 mg DAILY RODRIGO Administration Magnesium Hydroxide 30 ml 11/13/17 11:03 Mom PO DAILY PRN Constipation Menthol 1 lozenge 11/13/17 11:41 11/14/17 15:24 Ricola Sf MM 1 lozenge PRN PRN Administration Cough Metformin HCl 500 mg 11/14/17 10:30 11/18/17 09:42 Glucophage PO 500 mg WB RODRIGO Administration Metformin HCl 500 mg 11/18/17 17:30 11/19/17 08:51 Glucophage PO 500 mg BIDWM RODRIGO Administration Multivitamins 1 tab 11/10/17 14:00 11/19/17 15:57 Total B + C PO 1 tab [id number] RODRIGO Administration Pantoprazole Sodium 20 mg 11/12/17 06:30 11/19/17 06:04 Protonix PO 20 mg ACB RODRIGO Administration Polyethylene Glycol 17 gm 11/13/17 11:03 Miralax PO DAILY PRN Constipation Potassium Chloride 20 meq 11/11/17 09:00 11/11/17 09:30 K-Dur 20 Meq Tablet PO Not Given DAILY RODRIGO Potassium Chloride 20 meq 11/10/17 12:00 11/11/17 09:36 K-Dur 20 Meq Tablet PO 20 meq TIDWM RODRIGO Administration Potassium Chloride 20 meq 11/11/17 17:30 11/19/17 08:51 K-Dur 20 Meq Tablet PO 20 meq BIDWM RODRIGO Administration Potassium Chloride 20 meq 11/13/17 12:30 11/13/17 12:18 K-Dur 20 Meq Tablet PO 11/13/17 12:31 20 meq O ONE Administration Ropinirole HCl 2 mg 11/10/17 09:00 11/10/17 10:33 Requip PO Not Given TID RODRIGO Ropinirole HCl 2 mg 11/10/17 15:00 11/19/17 15:59 Requip PO 2 mg TID RODRIGO Administration Silver Sulfadiazine 1 applic 11/11/17 09:00 11/19/17 08:52 Silvadene TOP 1 applic DAILY RODRIGO Administration Sodium Chloride 10 - 80 ml 11/09/17 21:40 11/19/17 09:53 Iv Flush IVF 10 ml PRN PRN Administration Flushing Sodium Chloride 500 ml 11/16/17 09:34 11/18/17 18:06 Normal Saline IV 500 ml PRN PRN Administration Sotalol HCl 20 mg 11/16/17 09:00 11/16/17 21:25 Betapace PO Not Given DAILY RODRIGO Sotalol HCl 20 mg 11/16/17 16:15 11/18/17 09:43 Betapace PO 20 mg DAILY RODRIGO Administration Tramadol HCl 50 mg 11/10/17 21:00 11/10/17 01:08 Ultram PO 50 mg HS RODRIGO Administration Tramadol HCl 50 mg 11/10/17 21:00 11/18/17 20:09 Ultram PO 50 mg HS RODRIGO Administration Vancomycin HCl 1 each 11/12/17 09:12 11/13/17 07:30 Pharmacy Consult - Vancomycin MC 11/12/17 09:13 1 each O ONE Administration Results 11/19/17 04:03 11/19/17 04:03 Assessment and Plan - Assessment and Plan (1) Acute on chronic systolic (congestive) heart failure Status: Acute (2) Paroxysmal atrial fibrillation Status: Chronic (3) Essential (primary) hypertension Status: Chronic (4) ICD (implantable cardioverter-defibrillator) in place Status: Chronic (5) Bronchitis Status: Acute (6) Cardiomyopathy Status: Chronic - Attestation Attestation Narrative: 11/21/17 12:33 Recommendation After examining the patient I agree with the above assessment. I am involved in the formulation of the patient's plan of care. Hospital Course Summary Disclaimer: The visit summary below is not to be considered part of the above Progress Note.
[2017-11-12] MEDS: INSULIN REGULAR, HUMAN 100 UNIT/ML INJECTION SQ PRN ×3 (11:22→22:15)
[2017-11-12] MEDS: SILVER SULFADIAZINE 1% CREAM 25 GM TOP SCH (12:38)
[2017-11-12] MEDS: GABAPENTIN 600 MG TABLET PO SCH (21:53)
[2017-11-12] MEDS: TRAMADOL 50 MG TABLET PO SCH (21:54)
[2017-11-12] MEDS: DOCUSATE SODIUM 100 MG CAPSULE PO SCH (21:54)
[2017-11-13] MEDS: HEPARIN SUB-Q 5,000units/0.5ml INJECTION SQ SCH ×3 (00:39→17:57)
[2017-11-13] MEDS: GUAIFENESIN/DM 5ml ORAL LIQUID PO PRN ×3 (00:46→12:09)
[2017-11-13] MEDS: PANTOPRAZOLE 20 MG TABLET PO SCH (05:30)
[2017-11-13] MEDS: SALINE FLUSH 10ml SYRINGE IVF PRN ×2 (05:31→08:57)
[2017-11-13] MEDS: BUDESONIDE INH.SOLN 0.5mg/2ml NEB AEROSOL SCH ×2 (07:00→18:37)
[2017-11-13] MEDS: ALBUTEROL/IPRATROPIUM 2.5mg-0.5mg/3ml NEB AEROSOL SCH ×4 (07:00→18:37)
[2017-11-13] MEDS: CEFTRIAXONE 1 G in NS 50 ML IV SCH (07:56)
[2017-11-13] MEDS: GUAIFENESIN LA 600 MG TABLET PO SCH (08:09)
[2017-11-13] MEDS: CARVEDILOL 25 MG TABLET PO SCH ×2 (08:10→17:57)
[2017-11-13] MEDS: VITAMIN B COMPLEX + C TABLET PO SCH ×3 (08:11→14:17)
[2017-11-13] MEDS: ROPINIROLE 2 MG TABLET PO SCH ×3 (08:11→20:16)
[2017-11-13] MEDS: BUMETANIDE 1 MG TABLET PO SCH ×2 (08:11→17:56)
[2017-11-13] MEDS: SILVER SULFADIAZINE 1% CREAM 25 GM TOP SCH (08:11)
[2017-11-13] MEDS: CEFEPIME 1 GM in NS 50 ML IV SCH ×2 (08:57→21:37)
--- NOTE | 2017-11-13 10:20 | Cardiology Progress Note ---
<Rhonda Adames - Last Filed: 11/14/17 11:40> Subjective Principal diagnosis: CHF exacerbation, URI, COPD exacerbation Interval history: Almas is seen in follow up for CHF exacerbation, URI, COPD exacerbation. He is up on the bedside, states he would like to take a walk. He denies chest pain, pressure, palpitations or dizziness. Exam Vital signs: Temperature 96.6 F L 11/13/17 07:56 Pulse Rate 79 11/13/17 07:56 Respiratory Rate 18 11/13/17 07:56 Blood Pressure 148/78 H 11/13/17 07:56 Pulse Oximetry 91 11/13/17 07:56 Inpatient Medications: Generic Name Dose Route Start Last Admin Trade Name Freq PRN Reason Stop Dose Admin Acetaminophen 1,300 mg 11/10/17 09:47 Tylenol Arthritis PO BID PRN Pain Albuterol/Ipratropium 3 ml 11/10/17 15:00 11/13/17 07:00 Duoneb AEROSOL 3 ml RTQID RODRIGO Administration Albuterol/Ipratropium 3 ml 11/10/17 14:16 Duoneb AEROSOL RTQID PRN Budesonide 0.5 mg 11/10/17 19:00 11/13/17 07:00 Pulmicort Inhalation AEROSOL 0.5 mg RTBID RODRIGO Administration Bumetanide 2 mg 11/11/17 17:30 11/13/17 08:11 Bumex 1 Mg Tab PO 2 mg BIDBS RODRIGO Administration Carbidopa/Levodopa 1 tab 11/10/17 15:00 11/13/17 08:10 Sinemet PO 1 tab TID RODRIGO Administration Carvedilol 25 mg 11/10/17 17:30 11/13/17 08:10 Coreg PO 25 mg BIDWM RODRIGO Administration Dextrose 1 ml 11/10/17 10:51 D50%W IVP PRN PRN Hypoglycemia Diltiazem HCl 30 mg 11/10/17 16:05 Cardizem Ir 30 Mg Tab PO Q6HR PRN FOR HR sustained >120 Docusate Sodium 200 mg 11/10/17 21:00 11/12/17 21:54 Colace PO 200 mg HS RODRIGO Administration Gabapentin 600 mg 11/10/17 21:00 11/12/17 21:53 Neurontin PO 600 mg HS RODRIGO Administration Glucose 37.5 gm 11/10/17 10:51 Glutose 15 PO PRN PRN Hypoglycemia Guaifenesin 1,200 mg 11/10/17 21:00 11/13/17 08:09 Mucinex La PO 1,200 mg BID ROD[facility]IGO Administration Guaifenesin/Dextromethorphan 10 ml 11/10/17 22:53 11/13/17 05:30 Robitussin Dm PO 10 ml Q4H PRN Administration Cough /Congestion Heparin Sodium (Porcine) 5,000 units 11/11/17 17:00 11/13/17 08:11 Heparin Sq SQ 5,000 units Q8HR [facility]IGO Administration Cefepime HCl 1 gm/ Sodium 50 mls @ 100 mls/hr 11/12/17 09:45 11/13/17 10:07 Chloride IV Infused Q12H [facility]IGO Infusion Vancomycin HCl 1,000 mg/ 250 mls @ 250 mls/hr 11/13/17 04:30 11/13/17 05:01 Sodium Chloride IV Infused Q18H [facility]IGO Infusion Insulin Human Regular 2 - 8 unit 11/10/17 10:51 11/12/17 22:15 Novolin R SQ 2 unit SS PRN Administration Hyperglycemia Protocol Multivitamins 1 tab 11/10/17 14:00 11/13/17 08:11 Total B + C PO 1 tab [id number] RODRIGO Administration Pantoprazole Sodium 20 mg 11/12/17 06:30 11/13/17 05:30 Protonix PO 20 mg ACB RODRIGO Administration Potassium Chloride 20 meq 11/11/17 17:30 11/13/17 08:09 K-Dur 20 Meq Tablet PO 20 meq BIDWM [facility]IGO Administration Ropinirole HCl 2 mg 11/10/17 15:00 11/13/17 08:11 Requip PO 2 mg TID RODRIGO Administration Silver Sulfadiazine 1 applic 11/11/17 09:00 11/13/17 08:11 Silvadene TOP 1 applic DAILY RODRIGO Administration Sodium Chloride 10 - 80 ml 11/09/17 21:40 11/13/17 08:57 Iv Flush IVF 10 ml PRN PRN Administration Flushing Tramadol HCl 50 mg 11/10/17 21:00 11/12/17 21:54 Ultram PO 50 mg HS RODRIGO Administration Discontinued Medications Generic Name Dose Route Start Last Admin Trade Name Freq PRN Reason Stop Dose Admin Albuterol/Ipratropium 3 ml 11/09/17 21:44 11/09/17 21:54 Duoneb AEROSOL 11/09/17 21:45 3 ml O ONE Administration Azithromycin 500 mg 11/10/17 09:00 11/10/17 10:33 Zithromax PO Not Given DAILY RODRIGO Azithromycin 500 mg 11/10/17 21:00 11/11/17 21:08 Zithromax PO 500 mg HS [facility]OD[facility]IGO Administration Budesonide 0.5 mg 11/09/17 21:44 11/09/17 21:54 Pulmicort Inhalation AEROSOL 11/09/17 21:45 0.5 mg O ONE Administration Bumetanide 1 mg 11/09/17 23:59 11/10/17 01:06 Bumex 1 Mg/4 Ml Inj. IVP 11/10/17 00:00 1 mg O ONE Administration Bumetanide 2 mg 11/10/17 21:00 Bumex 1 Mg Tab PO BID [facility] Bumetanide 2 mg 11/10/17 11:30 11/10/17 12:23 Bumex 1 Mg/4 Ml Inj. IVP 11/10/17 11:31 2 mg O ONE Administration Carbidopa/Levodopa 1 tab 11/10/17 09:00 11/10/17 10:17 Sinemet PO Not Given TID [facility] Dexamethasone 8 mg 11/09/17 22:15 11/09/17 22:32 Decadron IVP 11/09/17 22:16 8 mg O ONE Administration Digoxin 500 mcg 11/10/17 11:25 11/10/17 12:14 Lanoxin IVP 11/10/17 11:26 500 mcg O ONE Administration Digoxin 125 mcg 11/10/17 16:00 11/10/17 16:40 Lanoxin IVP 11/10/17 16:01 125 mcg O ONE Administration Diltiazem HCl 120 mg 11/10/17 10:00 11/10/17 10:40 Cardizem Cd 120 Mg PO 120 mg DAILY ROD[facility]IGO Administration Docusate Sodium 200 mg 11/10/17 09:00 11/10/17 10:17 Colace PO Not Given BID [facility]IGO Gabapentin 600 mg 11/10/17 22:00 11/10/17 01:09 Neurontin PO 600 mg DAILY ROD[facility]IGO Administration Albumin Human 12.5 g/ IV 50 mls @ 50 mls/hr 11/09/17 23:59 11/10/17 02:07 Solution IV 11/10/17 00:58 Infused O ONE Infusion Bumetanide 25 mg/ IV Solution 100 mls @ 2 mls/hr 11/10/17 12:00 11/11/17 10: 30 IV Infused Q24H [facility]O Infusion Ceftriaxone Sodium 1 g/ Sodium 100 mls @ 200 mls/hr 11/10/17 16:15 11/10/17 17:55 Chloride IV Infused Q24H [facility]O Infusion Ceftriaxone Sodium 1 g/ Sodium 50 mls @ 200 mls/hr 11/11/17 09:00 11/13/17 07 :56 Chloride IV Not Given Q24HR ROD[facility]IGO Sodium Chloride 500 mls @ 10 mls/hr 11/10/17 21:39 11/12/17 02:02 Normal Saline IV Not Given .Q24H ROD[facility]IGO Vancomycin HCl 1,500 mg/ 500 mls @ 250 mls/hr 11/12/17 10:30 11/13/17 07:56 Sodium Chloride IV 11/12/17 12:29 Infused O ONE Infusion Insulin Human Regular 12 unit 11/10/17 11:00 11/10/17 12:11 Novolin R SQ 11/10/17 11:01 12 unit O ONE Administration Insulin Human Regular 12 unit 11/10/17 16:15 11/10/17 16:40 Novolin R SQ 11/10/17 16:16 12 unit O ONE Administration Potassium Chloride 20 meq 11/11/17 09:00 11/11/17 09:30 K-Dur 20 Meq Tablet PO Not Given DAILY [facility]OD[facility]IGO Potassium Chloride 20 meq 11/10/17 12:00 11/11/17 09:36 K-Dur 20 Meq Tablet PO 20 meq TIDWM [facility]IGO Administration Ropinirole HCl 2 mg 11/10/17 09:00 11/10/17 10:33 Requip PO Not Given TID R[facility]IGO Tramadol HCl 50 mg 11/10/17 21:00 11/10/17 01:08 Ultram PO 50 mg HS RODRIGO Administration Vancomycin HCl 1 each 11/12/17 09:12 11/13/17 07:30 Pharmacy Consult - Vancomycin MC 11/12/17 09:13 1 each O ONE Administration - Constitutional no acute distress, well nourished, cooperative - Routine HEENT Exam Head: Present: normocephalic ENT: Present: mucous membranes moist - Routine Neck Exam Absent: JVD, carotid bruit - Routine Chest/Breast/Axilla Exam Chest wall: Present: pacemaker. Absent: tenderness - Routine Respiratory Exam Present: decreased breath sounds, rhonchi, wheezes. Absent: CTA bilaterally - Routine Cardiovascular Exam Present: irregular rhythm. Absent: JVD - Routine Abdominal Exam Present: soft, normoactive bowel sounds - Routine Extremities Exam Present: edema - Routine Skin Exam Present: intact, dry, warm - Routine Neurological Exam Present: alert, oriented X3 - Routine Psychiatric Exam Present: normal affect, normal thought process - Additional findings Additional findings: Acetaminophen (Tylenol Arthritis) 1,300 mg PO BID PRN PRN Reason: Pain Albuterol/Ipratropium (Duoneb) 3 ml AEROSOL RTQID [facility] Last Admin: 11/14/17 08:09 Dose: 3 ml Albuterol/Ipratropium (Duoneb) 3 ml AEROSOL RTQID PRN Benzonatate (Tessalon Perles) 100 mg PO TID PRN PRN Reason: Cough Last Admin: 11/14/17 08:34 Dose: 100 mg Bisacodyl (Dulcolax) 10 mg RECTALLY DAILY PRN PRN Reason: Constipation Budesonide (Pulmicort Inhalation) 0.5 mg AEROSOL RTBID [facility] Last Admin: 11/14/17 08:08 Dose: 0.5 mg Bumetanide (Bumex 1 Mg Tab) 2 mg PO BIDBS [facility] Last Admin: 11/14/17 08:34 Dose: 2 mg Carbidopa/Levodopa (Sinemet) 1 tab PO TID [facility] Last Admin: 11/14/17 08:35 Dose: 1 tab Carvedilol (Coreg) 25 mg PO BIDWM [facility] Last Admin: 11/14/17 08:34 Dose: 25 mg Dextrose (D50%W) 1 ml IVP PRN PRN PRN Reason: Hypoglycemia Diltiazem HCl (Cardizem Ir 30 Mg Tab) 30 mg PO Q6HR PRN PRN Reason: FOR HR sustained >120 Diltiazem HCl (Cardizem Cd 120 Mg) 120 mg PO DAILY [facility] Last Admin: 11/14/17 08:36 Dose: 120 mg Docusate Sodium (Colace) 200 mg PO HS [facility] Last Admin: 11/13/17 20:16 Dose: 200 mg Gabapentin (Neurontin) 600 mg PO HS [facility] Last Admin: 11/13/17 20:17 Dose: 600 mg Glucose (Glutose 15) 37.5 gm PO PRN PRN PRN Reason: Hypoglycemia Guaifenesin/Dextromethorphan (Robitussin Dm) 10 ml PO Q4H PRN PRN Reason: Cough /Congestion Last Admin: 11/13/17 12:09 Dose: 10 ml Guaifenesin/Dextromethorphan (Mucinex Dm) 1 tab PO BID [facility] Last Admin: 11/14/17 08:34 Dose: 1 tab Heparin Sodium (Porcine) (Heparin Sq) 5,000 units SQ Q8HR [facility] Last Admin: 11/14/17 08:35 Dose: 5,000 units Cefepime HCl 1 gm/ Sodium (Chloride) 50 mls @ 100 mls/hr IV Q12H [facility] Last Infusion: 11/14/17 10:31 Dose: Infused Vancomycin HCl 1,000 mg/ (Sodium Chloride) 250 mls @ 250 mls/hr IV Q18H [facility] Last Infusion: 11/13/17 23:46 Dose: Infused Insulin Human Regular (Novolin R) 2 - 8 unit SQ SS PRN; Protocol PRN Reason: Hyperglycemia Last Admin: 11/14/17 11:03 Dose: 5 unit Magnesium Hydroxide (Mom) 30 ml PO DAILY PRN PRN Reason: Constipation Menthol (Ricola Sf) 1 lozenge MM PRN PRN PRN Reason: Cough Last Admin: 11/14/17 08:35 Dose: 1 lozenge Metformin HCl (Glucophage) 500 mg PO WB [facility] Last Admin: 11/14/17 11:03 Dose: 500 mg Multivitamins (Total B + C) 1 tab PO [id number] [facility] Last Admin: 11/14/17 08:34 Dose: 1 tab Pantoprazole Sodium (Protonix) 20 mg PO ACB [facility] Last Admin: 11/14/17 05:35 Dose: 20 mg Polyethylene Glycol (Miralax) 17 gm PO DAILY PRN PRN Reason: Constipation Potassium Chloride (K-Dur 20 Meq Tablet) 20 meq PO BIDWM [facility] Last Admin: 11/14/17 08:35 Dose: 20 meq Ropinirole HCl (Requip) 2 mg PO TID [facility] Last Admin: 11/14/17 08:34 Dose: 2 mg Silver Sulfadiazine (Silvadene) 1 applic TOP DAILY [facility] Last Admin: 11/14/17 08:37 Dose: 1 applic Sodium Chloride (Iv Flush) 10 - 80 ml IVF PRN PRN PRN Reason: Flushing Last Admin: 11/13/17 08:57 Dose: 10 ml Tramadol HCl (Ultram) 50 mg PO HS [facility] Last Admin: 11/13/17 20:17 Dose: 50 mg Results 11/14/17 04:22 11/14/17 04:22 Cardiac Enzymes 11/13/17 Range/Units 04:50 AST 30 (17-59) U/L CBC 11/13/17 Range/Units 04:50 WBC 8.0 (4.5-11.0) T/MM3 RBC 4.60 (4.50-5.90) M/MM3 Hgb 13.4 L (13.5-17.5) GM/DL Hct 43.2 (41-53) % Plt Count 191 (130-400) T/MM3 Neut # (Auto) 5.3 (1.8-7.7) T/MM3 Lymph # (Auto) 1.8 (1-4.8) T/MM3 [place] # (Auto) 0.8 (0-0.8) T/MM3 Eos # (Auto) 0.0 (0-0.5) T/MM3 Baso # (Auto) 0.0 (0-0.2) T/MM3 Comprehensive Metabolic Panel 11/13/17 Range/Units 04:50 Sodium 143 (134-144) MEQ/L Potassium 3.4 L (3.6-5) MEQ/L Chloride 93 L (98-107) MEQ/L Carbon Dioxide 39 H (22-30) MEQ/L BUN 41.0 H (9-20) MG/DL Creatinine 1.3 (0.8-1.5) mg/dL Glucose 153 H (75-110) MG/DL Calcium 8.8 (8.4-10.2) MG/DL Unconjugated Bilirubin 0.40 (0.00-1.1) mg/dL AST 30 (17-59) U/L ALT 23 (21-72) U/L Alkaline Phosphatase 118 (38-126) U/L Total Protein 7.6 (6.3-8.2) g/dL Albumin 3.9 (3.5-5.0) g/dL Intake and Output 11/12/17 11/13/17 11/13/17 22:59 06:59 14:59 Intake Total 520 / 520 550 / 550 550 / 550 Output Total 650 / 650 360 / 360 Balance -130 / -130 190 / 190 550 / 550 Intake: IV 50 / 50 250 / 250 550 / 550 Cefepime 1 gm In Ns 50 ml @ 100 50 / 50 50 / 50 mls/hr IV Q12H [facility] Rx#: [id number] Vancomycin 1,000 mg In NS 250ml 250 / 250 250 ml @ 250 mls/hr IV Q18H [facility]IG[facility] Rx#:[id number] Oral 470 / 470 300 / 300 Output: Urine 650 / 650 360 / 360 Other: Urine Appearance Clear Clear Urine Color Yellow Yellow Weight 149 lb 4.047 oz Patient Weight 11/14/17 06:59 Weight 149 lb 4.047 oz Assessment and Plan - Assessment and Plan (1) Bronchitis Status: Acute (2) Acute on chronic systolic (congestive) heart failure Status: Acute (3) Paroxysmal atrial fibrillation Status: Chronic (4) Essential (primary) hypertension Status: Chronic (5) ICD (implantable cardioverter-defibrillator) in place Status: Chronic (6) Cardiomyopathy Status: Chronic - Assessment and Plan 11/10/17: Rate up to 160's in afib on tele this AM. IV dig .5mg IVP now, .25mg IVP in 4 hours. Start Coreg 25mg bid this evening, hold sbp <100. Pt got dose of diltiazem 180 this am. Not a full anticoagulation candidate due to personal hx of significant bleed. Bumex 2mg IVP now, then 0.5mg/hr Bumex gtt. Potassium 3.6 today, replace 20meq TID, follow renal function and lytes. Agree with fluid restriction and low Na diet. COPD, URI, DM managed per attending. 11/11/17: down 1kg, I&O -1800 since admit. Creatinine and lytes stable today. CxR today mild improvement of central venous congestion when compared to . DC bumex drip, resume home dosing of bumex to 2mg bid (dose increase just this week from [facility] OV). K 3.6 today, replace 20meq bid, follow labs. Rate well controlled on coreg 25mg bid, IV dig yesterday and short acting diltiazem 30mg q6 prn rate >120 (per attending order). Continue current AFib rate meds, consider changing back to home cardizem 180mg daily as bp allows. URI, COPD, DM2 management per attending, pt reporting improved cough with nebulizing tx's. 11/12/17 +MRSA and + Pseudomonas Aeruginosa in Sputum C/S - BNP in am 11/13/17 AFib: Resume home Cardizem 120mg po Daily for rate control - Is not a candidate for nursing home coagulation due to history of GI bleeding on Pradaxa X2 BNP [id number] [place], [place] [id number] Hospital Course Summary Disclaimer: The visit summary below is not to be considered part of the above Progress Note. Hospital Course: 11/11 (1) Bronchitis/COPD exacerbation with fever at presentation -Resp therapy -Pt reports "allergy" to steroids. He reports they make him "mean" -On azithromycin (2) Acute on chronic non ischemic systolic heart failure -EF 20% -s/p ICD -Dr. Hinojosa consulted -Bumex drip ordered -High Pro-BNP likely from poor systolic function and afib. (3) Atrial fibrillation -Tachy -Resume coreg -PRN diltiazem for HR >120 sustained -Dig 0.5mg IV now and then 0.25 in 6 hours times one -[id number] = -PPM/ICD in place (4) COPD -Exacerbation -Resp therapy (5) DM -SSI -Hold home metformin (6) JEANNA -Bipap at night -He usually goes to bed with it but rarely wakes up with it on. He is unsure how longs he actually wears it at night. (7) RLS -continue Requip (8) HTN -Continue coreg -change diltiazem to prn for hr/bp (9) Parkinsons disease -Continue Sinemet (10) Prophylaxis -PPI and SQ heparin 11/12 Discontinue Rocephin and Azithromycin. Start Cefepime and Vanco for better coverage of MRSA and Pseudomonas in sputum C/S Overall weight is trending down with diuretics. Bumex drip was stopped and he is currently on normal home regimen. Weight trending down. Appreciate cardiac consultation- Continues on Coreg and Cardizem Continue with scheduled nebulizers and acapella Overall BGMs have been well controlled Heparin subcutaneous for DVT prophylaxis Case discussed with attending, Dr Wang <Jonathan Hinojosa - Last Filed: 11/21/17 12:36> Exam Vital signs: Temperature 95.4 F L 11/19/17 15:05 Pulse Rate 50 L 11/19/17 15:05 Respiratory Rate 18 11/19/17 15:05 Blood Pressure 121/62 11/19/17 15:05 Pulse Oximetry 93 11/19/17 15:05 Inpatient Medications: Discontinued Medications Generic Name Dose Route Start Last Admin Trade Name Freq PRN Reason Stop Dose Admin Acetaminophen 1,300 mg 11/10/17 09:47 11/15/17 09:26 Tylenol Arthritis PO 1,300 mg BID PRN Administration Pain Acetazolamide 500 mg 11/15/17 09:24 11/15/17 11:46 Diamox PO 11/15/17 09:25 500 mg O ONE Administration Albuterol/Ipratropium 3 ml 11/09/17 21:44 11/09/17 21:54 Duoneb AEROSOL 11/09/17 21:45 3 ml O ONE Administration Albuterol/Ipratropium 3 ml 11/10/17 15:00 11/19/17 14:48 Duoneb AEROSOL 3 ml RTQID [facility] Administration Albuterol/Ipratropium 3 ml 11/10/17 14:16 Duoneb AEROSOL RTQID PRN Azithromycin 500 mg 11/10/17 09:00 11/10/17 10:33 Zithromax PO Not Given DAILY [facility] Azithromycin 500 mg 11/10/17 21:00 11/11/17 21:08 Zithromax PO 500 mg HS [facility] Administration Benzonatate 100 mg 11/13/17 11:02 11/16/17 09:29 Tessalon Perles PO 100 mg TID PRN Administration Cough Bisacodyl 10 mg 11/13/17 11:03 Dulcolax RECTALLY DAILY PRN Constipation Budesonide 0.5 mg 11/09/17 21:44 11/09/17 21:54 Pulmicort Inhalation AEROSOL 11/09/17 21:45 0.5 mg O ONE Administration Budesonide 0.5 mg 11/10/17 19:00 11/19/17 06:34 Pulmicort Inhalation AEROSOL 0.5 mg RTBID [facility] Administration Bumetanide 1 mg 11/09/17 23:59 11/10/17 01:06 Bumex 1 Mg/4 Ml Inj. IVP 11/10/17 00:00 1 mg O ONE Administration Bumetanide 2 mg 11/10/17 21:00 Bumex 1 Mg Tab PO BID [facility] Bumetanide 2 mg 11/10/17 11:30 11/10/17 12:23 Bumex 1 Mg/4 Ml Inj. IVP 11/10/17 11:31 2 mg O ONE Administration Bumetanide 2 mg 11/11/17 17:30 11/15/17 09:23 Bumex 1 Mg Tab PO 2 mg BIDBS [facility]O Administration Bumetanide 2 mg 11/15/17 15:03 11/18/17 09:43 Bumex 1 Mg Tab PO 2 mg TID [facility] Administration Bumetanide 2 mg 11/18/17 14:00 11/19/17 15:57 Bumex 1 Mg Tab PO 2 mg [id number] [facility] Administration Carbidopa/Levodopa 1 tab 11/10/17 09:00 11/10/17 10:17 Sinemet PO Not Given TID [facility] Carbidopa/Levodopa 1 tab 11/10/17 15:00 11/19/17 16:02 Sinemet PO 1 tab TID [facility] Administration Carvedilol 25 mg 11/10/17 17:30 11/19/17 08:51 Coreg PO 25 mg BIDWM [facility]O Administration Clotrimazole 10 mg 11/16/17 18:30 11/19/17 15:58 Mycelex Carlos Manuel MM 10 mg 5XD [facility] Administration Dexamethasone 8 mg 11/09/17 22:15 11/09/17 22:32 Decadron IVP 11/09/17 22:16 8 mg O ONE Administration Dextrose 1 ml 11/10/17 10:51 D50%W IVP PRN PRN Hypoglycemia Digoxin 500 mcg 11/10/17 11:25 11/10/17 12:14 Lanoxin IVP 11/10/17 11:26 500 mcg O ONE Administration Digoxin 125 mcg 11/10/17 16:00 11/10/17 16:40 Lanoxin IVP 11/10/17 16:01 125 mcg O ONE Administration Diltiazem HCl 120 mg 11/10/17 10:00 11/10/17 10:40 Cardizem Cd 120 Mg PO 120 mg DAILY [facility] Administration Diltiazem HCl 30 mg 11/10/17 16:05 Cardizem Ir 30 Mg Tab PO Q6HR PRN FOR HR sustained >120 Diltiazem HCl 120 mg 11/13/17 10:30 11/19/17 08:52 Cardizem Cd 120 Mg PO 120 mg DAILY [facility] Administration Docusate Sodium 200 mg 11/10/17 09:00 11/10/17 10:17 Colace PO Not Given BID [facility] Docusate Sodium 200 mg 11/10/17 21:00 11/18/17 20:09 Colace PO 200 mg HS [facility] Administration Gabapentin 600 mg 11/10/17 22:00 11/10/17 01:09 Neurontin PO 600 mg DAILY [facility] Administration Gabapentin 600 mg 11/10/17 21:00 11/18/17 20:09 Neurontin PO 600 mg HS [facility] Administration Glucose 37.5 gm 11/10/17 10:51 Glutose 15 PO PRN PRN Hypoglycemia Guaifenesin 1,200 mg 11/10/17 21:00 11/13/17 08:09 Mucinex La PO 1,200 mg BID [facility] Administration Guaifenesin/Dextromethorphan 10 ml 11/10/17 22:53 11/14/17 17:48 Robitussin Dm PO 10 ml Q4H PRN Administration Cough /Congestion Guaifenesin/Dextromethorphan 1 tab 11/13/17 21:00 11/19/17 08:50 Mucinex Dm PO 1 tab BID [facility] Administration Heparin Sodium (Porcine) 5,000 units 11/11/17 17:00 11/19/17 08:50 Heparin Sq SQ 5,000 units Q8HR [facility] Administration Albumin Human 12.5 g/ IV 50 mls @ 50 mls/hr 11/09/17 23:59 11/10/17 02:07 Solution IV 11/10/17 00:58 Infused O ONE Infusion Bumetanide 25 mg/ IV Solution 100 mls @ 2 mls/hr 11/10/17 12:00 11/11/17 10: 30 IV Infused Q24H [facility] Infusion Ceftriaxone Sodium 1 g/ Sodium 100 mls @ 200 mls/hr 11/10/17 16:15 11/10/17 17:55 Chloride IV Infused Q24H [facility] Infusion Ceftriaxone Sodium 1 g/ Sodium 50 mls @ 200 mls/hr 11/11/17 09:00 11/13/17 07 :56 Chloride IV Not Given Q24HR [facility] Sodium Chloride 500 mls @ 10 mls/hr 11/10/17 21:39 11/12/17 02:02 Normal Saline IV Not Given .Q24H [facility] Cefepime HCl 1 gm/ Sodium 50 mls @ 100 mls/hr 11/12/17 09:45 11/19/17 09:52 Chloride IV 100 mls/hr Q12H [facility] Administration Vancomycin HCl 1,500 mg/ 500 mls @ 250 mls/hr 11/12/17 10:30 11/13/17 07:56 Sodium Chloride IV 11/12/17 12:29 Infused O ONE Infusion Vancomycin HCl 1,000 mg/ 250 mls @ 250 mls/hr 11/13/17 04:30 11/16/17 21:25 Sodium Chloride IV Not Given Q18H [facility] Vancomycin HCl 1,000 mg/ 250 mls @ 250 mls/hr 11/15/17 12:00 11/16/17 07:14 Sodium Chloride IV Infused Q18H [facility] Infusion Vancomycin HCl 1,000 mg/ 250 mls @ 250 mls/hr 11/17/17 09:00 11/17/17 11:16 Sodium Chloride IV Infused Q24H [facility] Infusion Vancomycin HCl 1,250 mg/ 250 mls @ 200 mls/hr 11/18/17 18:00 11/18/17 19:30 Sodium Chloride IV Infused Q36H [facility] Infusion Insulin Human Regular 2 - 8 unit 11/10/17 10:51 11/19/17 15:56 Novolin R SQ 5 unit SS PRN Administration Hyperglycemia Protocol Insulin Human Regular 12 unit 11/10/17 11:00 11/10/17 12:11 Novolin R SQ 11/10/17 11:01 12 unit O ONE Administration Insulin Human Regular 12 unit 11/10/17 16:15 11/10/17 16:40 Novolin R SQ 11/10/17 16:16 12 unit O ONE Administration Lisinopril 2.5 mg 11/16/17 09:15 11/16/17 10:01 Prinivil PO 2.5 mg DAILY [facility] Administration Lisinopril 5 mg 11/16/17 15:15 Prinivil PO DAILY [facility] Lisinopril 2.5 mg 11/17/17 09:00 11/19/17 08:52 Prinivil PO 2.5 mg DAILY [facility] Administration Magnesium Hydroxide 30 ml 11/13/17 11:03 Mom PO DAILY PRN Constipation Menthol 1 lozenge 11/13/17 11:41 11/14/17 15:24 Ricola Sf MM 1 lozenge PRN PRN Administration Cough Metformin HCl 500 mg 11/14/17 10:30 11/18/17 09:42 Glucophage PO 500 mg WB [facility] Administration Metformin HCl 500 mg 11/18/17 17:30 11/19/17 08:51 Glucophage PO 500 mg BIDWM [facility] Administration Multivitamins 1 tab 11/10/17 14:00 11/19/17 15:57 Total B + C PO 1 tab [id number] [facility] Administration Pantoprazole Sodium 20 mg 11/12/17 06:30 11/19/17 06:04 Protonix PO 20 mg ACB [facility] Administration Polyethylene Glycol 17 gm 11/13/17 11:03 Miralax PO DAILY PRN Constipation Potassium Chloride 20 meq 11/11/17 09:00 11/11/17 09:30 K-Dur 20 Meq Tablet PO Not Given DAILY [facility] Potassium Chloride 20 meq 11/10/17 12:00 11/11/17 09:36 K-Dur 20 Meq Tablet PO 20 meq TIDWM [facility] Administration Potassium Chloride 20 meq 11/11/17 17:30 11/19/17 08:51 K-Dur 20 Meq Tablet PO 20 meq BIDWM [facility] Administration Potassium Chloride 20 meq 11/13/17 12:30 11/13/17 12:18 K-Dur 20 Meq Tablet PO 11/13/17 12:31 20 meq O ONE Administration Ropinirole HCl 2 mg 11/10/17 09:00 11/10/17 10:33 Requip PO Not Given TID [facility] Ropinirole HCl 2 mg 11/10/17 15:00 11/19/17 15:59 Requip PO 2 mg TID RODRIGO Administration Silver Sulfadiazine 1 applic 11/11/17 09:00 11/19/17 08:52 Silvadene TOP 1 applic DAILY RODRIGO Administration Sodium Chloride 10 - 80 ml 11/09/17 21:40 11/19/17 09:53 Iv Flush IVF 10 ml PRN PRN Administration Flushing Sodium Chloride 500 ml 11/16/17 09:34 11/18/17 18:06 Normal Saline IV 500 ml PRN PRN Administration Sotalol HCl 20 mg 11/16/17 09:00 11/16/17 21:25 Betapace PO Not Given DAILY RODRIGO Sotalol HCl 20 mg 11/16/17 16:15 11/18/17 09:43 Betapace PO 20 mg DAILY RODRIGO Administration Tramadol HCl 50 mg 11/10/17 21:00 11/10/17 01:08 Ultram PO 50 mg HS RODRIGO Administration Tramadol HCl 50 mg 11/10/17 21:00 11/18/17 20:09 Ultram PO 50 mg HS RODRIGO Administration Vancomycin HCl 1 each 11/12/17 09:12 11/13/17 07:30 Pharmacy Consult - Vancomycin 11/12/17 09:13 1 each O ONE Administration Results 11/19/17 04:03 11/19/17 04:03 Assessment and Plan - Assessment and Plan (1) Acute on chronic systolic (congestive) heart failure Status: Acute (2) Paroxysmal atrial fibrillation Status: Chronic (3) Essential (primary) hypertension Status: Chronic (4) ICD (implantable cardioverter-defibrillator) in place Status: Chronic (5) Bronchitis Status: Acute (6) Cardiomyopathy Status: Chronic - Attestation Attestation Narrative: 11/21/17 12:36 Recommendation After examining the patient I agree with the above assessment. I am involved in the formulation of the patient's plan of care. Hospital Course Summary Disclaimer: The visit summary below is not to be considered part of the above Progress Note.
[2017-11-13] MEDS ORDERED: POLYETHYL GLYCOL 3350 17gm PACKET PO PRN (11:03)
[2017-11-13] MEDS ORDERED: BISACODYL 10 MG SUPPOSITORY RECTALLY PRN (11:03)
--- NOTE | 2017-11-13 11:07 | Progress Note ---
- Date 11/13/17 Subjective: F/U: COPD exacerbation, Acute on chronic systolic HF Doing fair. Rough night, couldn't sleep-couldn't get comfortable, cough problematic. Tired this am. Breathing about the same-continues to have congestion and cough, not able to mobilize sputum. Chest wall with some soreness from coughing. Appetite decreased. No nausea or ab pain. Objective Vital signs: Temperature 96.6 F L 11/13/17 07:56 Pulse Rate 79 11/13/17 07:56 Respiratory Rate 18 11/13/17 07:56 Blood Pressure 148/78 H 11/13/17 07:56 Pulse Oximetry 91 11/13/17 07:56 Rhythm: Second Degree AV Block Type I and 2:1 AV Block Height/Weight/BMI: Height 1.65 m Weight 67.7 kg Body Mass Index 24.7 - Constitutional Present: well nourished, well developed, average body habitus, other (Appears tired) - Routine HEENT Exam Head: Present: normocephalic, atraumatic Eye: Present: EOMI, PERRL ENT: Present: mucous membranes moist - Routine Respiratory Exam Present: decreased breath sounds, rhonchi, wheezes, distant breath sounds - Routine Cardiovascular Exam Present: no murmur, irregularly irregular - Routine Abdominal Exam Present: soft, normoactive bowel sounds, non distended, non tender - Routine Extremities Exam Present: no edema, pulses intact. Absent: cyanosis, clubbing - Routine Musculoskeletal Exam Musculoskeletal: Present: no clubbing or cyanosis - Routine Skin Exam Present: dry, warm - Routine Neurological Exam Present: alert, CN II-XII intact, moving all extremities, vision grossly intact , hearing grossly intact, normal speech. Absent: motor deficit, altered mental status - Routine Psychiatric Exam Present: normal affect, cooperative. Absent: anxious, agitated Results - Labs CBC & Chem 7: 11/13/17 04:50 11/13/17 04:50 Microbiology Results: Microbiology 11/10/17 01:25 Sputum, Expectorated Gram Stain - Final 11/10/17 01:25 Sputum, Expectorated Sputum Culture - Final Staphylococcus aureus, MRSA Pseudomonas aeruginosa Normal Respiratory Yue Assessment and Plan (1) Acute on chronic systolic (congestive) heart failure Current visit: No Status: Acute (2) Bronchitis Current visit: No Status: Acute Assessment and Plan: Impression Bronchitis/COPD exacerbation with fever at presentation +MRSA and + Pseudomonas Aeruginosa in Sputum C/S Hypernatremia (POA) - improved Acute on chronic non-ischemic systolic heart failure Severe cardiomyopathy - nonischemic Hx of ICD (implantable cardioverter-defibrillator) Not on anticoagulation chronically secondary to history of significant GI bleed Atrial fibrillation HTN COPD JEANNA on CPAP Type II diabetes Stage III CKD Acute kidney injury (POA) - resolved Restless Leg Syndrome Parkinson's disease Plan Continue cefepime and vancomycin for coverage of MRSA and Pseudomonas in sputum C/S. Will change Mucinex to Mucinex DM to help cough - add prn Tessalon Perles and Ricola. Continue with Neb Treatments. Potassium decreased to 3.4 - will give 20mEq KCl today at noon. Creatinine decreased to 1.3. Consult PT/OT to help increase functional status. Blood sugars showing increase. Continue ISS. Hold metformin for down due to resolving acute heart failure. Possible restart home lisinopril soon - creatinine improving and BP showing elevation to 130 to 140 systolic. Recheck BMP and Mg in am due to medications use. Recheck CBC in am secondary to bronchitis. Case discussed with CM. Time spent with patient care 35 minutes. DVT Prophylaxis: SCD's, SQ Heparin Resuscitation Status: Full Code - Time spent with patient Time with patient PN: 25 minutes - Physician Narrative Physician: Frank Wang MD Narrative: Date: 11/13/17 Time: 1104 Hospital Course Summary Disclaimer: The visit summary below is not to be considered part of the above Progress Note. Hospital Course: 11/11 (1) Bronchitis/COPD exacerbation with fever at presentation -Resp therapy -Pt reports "allergy" to steroids. He reports they make him "mean" -On azithromycin (2) Acute on chronic non ischemic systolic heart failure -EF 20% -s/p ICD -Dr. Hinojosa consulted -Bumex drip ordered -High Pro-BNP likely from poor systolic function and afib. (3) Atrial fibrillation -Tachy -Resume coreg -PRN diltiazem for HR >120 sustained -Dig 0.5mg IV now and then 0.25 in 6 hours times one -[id number] = -PPM/ICD in place (4) COPD -Exacerbation -Resp therapy (5) DM -SSI -Hold home metformin (6) JEANNA -Bipap at night -He usually goes to bed with it but rarely wakes up with it on. He is unsure how longs he actually wears it at night. (7) RLS -continue Requip (8) HTN -Continue coreg -change diltiazem to prn for hr/bp (9) Parkinson's disease -Continue Sinemet (10) Prophylaxis -PPI and SQ heparin 11/12 Discontinue Rocephin and Azithromycin. Start Cefepime and Vanco for better coverage of MRSA and Pseudomonas in sputum C/S. Overall weight is trending down with diuretics. Bumex drip was stopped and he is currently on normal home regimen. Weight trending down. Appreciate cardiac consultation- Continues on Coreg and Cardizem. Continue with scheduled nebulizers and acapella. Overall BGMs have been well controlled. Heparin subcutaneous for DVT prophylaxis. 11/13 Continue cefepime and vancomycin for coverage of MRSA and Pseudomonas in sputum C/S. Will change Mucinex to Mucinex DM to help cough - add prn Tessalon Perles and Ricola. Continue with Neb Treatments. Potassium decreased to 3.4 - will give 20mEq KCl today at noon. Creatinine decreased to 1.3. Consult PT/OT to help increase functional status. Blood sugars showing increase. Continue ISS. Hold metformin for down due to resolving acute heart failure. Possible restart home lisinopril soon - creatinine improving and BP showing elevation to 130 to 140 systolic.
--- NOTE | 2017-11-13 11:12 | Pharmacy Consult-Antibiotics ---
Pharmacy Consult-Vancomycin - Laboratory Information WBC 8.0 T/MM3 (4.5-11.0) 11/13/17 04:50 BUN 41.0 MG/DL (9-20) H 11/13/17 04:50 Creatinine 1.3 mg/dL (0.8-1.5) 11/13/17 04:50 - Consult Information VANCOMYCIN SHORT REVIEW: Today's S Cr = 1.3 mg/dL. Calculated Cr Cl = 42 mL/min The Pharmacy will continue the Vancomycin 1,000 mg IV Q18hrs and will continue to monitor and make adjustments accordingly. Thank you for the Vancomycin Dosing Protocol, Jakub Torres, Pharmacist.
[2017-11-13] MEDS: INSULIN REGULAR, HUMAN 100 UNIT/ML INJECTION SQ PRN ×2 (12:19→17:57)
[2017-11-13] MEDS: DOCUSATE SODIUM 100 MG CAPSULE PO SCH (20:16)
[2017-11-13] MEDS: TRAMADOL 50 MG TABLET PO SCH (20:17)
[2017-11-13] MEDS: GUAIFENESIN/D-METHORPHAN 600mg/30mg TABLET PO SCH (20:17)
[2017-11-13] MEDS: GABAPENTIN 600 MG TABLET PO SCH (20:17)
[2017-11-14] MEDS: HEPARIN SUB-Q 5,000units/0.5ml INJECTION SQ SCH ×3 (00:18→17:47)
[2017-11-14] MEDS: PANTOPRAZOLE 20 MG TABLET PO SCH (05:35)
[2017-11-14] MEDS: BUDESONIDE INH.SOLN 0.5mg/2ml NEB AEROSOL SCH ×2 (08:08→18:56)
[2017-11-14] MEDS: ALBUTEROL/IPRATROPIUM 2.5mg-0.5mg/3ml NEB AEROSOL SCH ×4 (08:09→18:56)
[2017-11-14] MEDS: GUAIFENESIN/D-METHORPHAN 600mg/30mg TABLET PO SCH ×2 (08:34→20:52)
[2017-11-14] MEDS: CARVEDILOL 25 MG TABLET PO SCH ×2 (08:34→17:47)
[2017-11-14] MEDS: ROPINIROLE 2 MG TABLET PO SCH ×3 (08:34→20:52)
[2017-11-14] MEDS: BUMETANIDE 1 MG TABLET PO SCH ×2 (08:34→17:47)
[2017-11-14] MEDS: BENZONATATE 100 MG CAPSULE PO PRN (08:34)
[2017-11-14] MEDS: VITAMIN B COMPLEX + C TABLET PO SCH ×2 (08:34→15:19)
[2017-11-14] MEDS: MENTHOL COUGH DROPS (RICOLA) MM PRN ×2 (08:35→15:24)
[2017-11-14] MEDS: SILVER SULFADIAZINE 1% CREAM 25 GM TOP SCH (08:37)
[2017-11-14] MEDS: CEFEPIME 1 GM in NS 50 ML IV SCH ×2 (10:01→20:53)
--- NOTE | 2017-11-14 10:10 | Progress Note ---
- Date 11/14/17 Subjective: Mr. Aviles is seen while resting in bed. He is perky this morning and when asked how he's doing he replies, "Great. I'm still alive". He denies any complaints or concerns other than feeling a little achy all over. His breathing continues to improve as does his cough. He does admit to being up most of last night due to his cough, but does not cough on exam. He denies any chest pain, shortness of breath, abdominal pain, nausea, vomiting or diarrhea. His appetite is stable and his bowels are moving. He remains afebrile and breathing easily on room air. Objective Vital signs: Temperature 96.8 F 11/13/17 22:45 Pulse Rate 64 11/14/17 08:00 Respiratory Rate 14 11/14/17 08:10 Blood Pressure 119/62 11/14/17 07:22 Pulse Oximetry 96 11/14/17 08:10 Height/Weight/BMI: Height 5 ft 5 in Weight 147 lb 7.828 oz Body Mass Index 24.7 Comments: Resting in bed; pleasant on exam. - Constitutional Present: no acute distress, well nourished, well developed, cooperative - Routine HEENT Exam Head: Present: normocephalic, atraumatic Eye: Present: PERRL. Absent: conjunctival icterus ENT: Present: mucous membranes moist, oropharynx clear - Routine Respiratory Exam Present: rhonchi, wheezes Comments: diminished breath sounds bilaterally with wheezing and rhonchi; no cough or conversational dyspnea on exam. - Routine Cardiovascular Exam Present: RRR, S1, S2 - Routine Abdominal Exam Present: soft, normoactive bowel sounds, non distended, non tender - Routine Extremities Exam Present: edema (trace), full ROM, pulses intact - Routine Back/Spine/Pelvis Exam Back/Spine: Present: full ROM. Absent: vertebral tenderness - Routine Musculoskeletal Exam Musculoskeletal: Present: moving extremities well - Routine Skin Exam Present: intact, dry, warm. Absent: jaundice Comments: Afebrile. - Routine Neurological Exam Present: alert, oriented X3, moving all extremities, hearing grossly intact, normal speech. Absent: facial asymmetry - Routine Lymphatic Exam Lymphatic: Absent: lymphedema - Routine Psychiatric Exam Present: normal affect, cooperative Results - Labs CBC & Chem 7: 11/14/17 04:22 11/14/17 04:22 Microbiology Results: Microbiology 11/10/17 01:25 Sputum, Expectorated Gram Stain - Final 11/10/17 01:25 Sputum, Expectorated Sputum Culture - Final Staphylococcus aureus, MRSA Pseudomonas aeruginosa Normal Respiratory Yue Assessment and Plan (1) Acute on chronic systolic (congestive) heart failure Current visit: No Status: Acute (2) Bronchitis Current visit: No Status: Acute Assessment and Plan: Impression Bronchitis/COPD exacerbation with fever at presentation +MRSA and + Pseudomonas Aeruginosa in Sputum C/S Hypernatremia (POA) - improved Acute on chronic non-ischemic systolic heart failure Severe cardiomyopathy - nonischemic Hx of ICD (implantable cardioverter-defibrillator) Not on anticoagulation chronically secondary to history of significant GI bleed Atrial fibrillation HTN COPD JEANNA on CPAP Type II diabetes Stage III CKD Acute kidney injury (POA) - resolved Restless Leg Syndrome Parkinson's disease Plan - 11/14/17: Continue cefepime and vancomycin for coverage of MRSA and Pseudomonas in sputum C/S - Day #3 of antibiotics. Continue Mucinex DM for cough with Tessalon Perles and Ricola. Continue with Neb Treatments. Unable to give steroids due to allergies. Hypokalemia resolved. Renal function continues to improve. Continue to encourage therapies for improvement in strength and functional abilities. Fast blood sugar improved and stable. Daytime sugars remain >200. Will restart home Metformin 500mg daily and continue to monitor blood sugars closely. SSI available. Blood pressure well controlled. Will continue to hold lisinopril and monitor pressures closely. Recheck BMP and Mg in am due to medications use. Recheck CBC in am secondary to bronchitis. DVT Prophylaxis: SCD's GI Prophylaxis: Protonix Resuscitation Status: Full Code - Time spent with patient Time with patient PN: 25 minutes - Physician Narrative Physician: Frank Wang MD Narrative: Date: 11/14/17 Time: 1750 Have independently interviewed and examined pt. Chart reviewed. Case discussed with CM and my PA. Care plan developed with my supervision; agree with above. Doing fair. noted increased confusion (reports pt good at covering confusion up). Breathing about the same-up and an down. No mouth pain or problems swallowing. Eating well-no nausea. Not been up much. Lungs: decreased bilaterally; improving air movement and less congestion. CV: regular AB: soft nt/nd Plan: Continue with antibiotics and neb treatments. Stressed the importance of CPAP to help breathing (use when resting/napping) as I worry some of the confusion my be CO2 retention. Did well with therapy, but deconditioned-- Nursing to ambulate QID. Metformin restarted. Monitor lab. Making slow but steady improvement. Will recheck CXR in am. Hospital Course Summary Disclaimer: The visit summary below is not to be considered part of the above Progress Note. Hospital Course: 11/11 (1) Bronchitis/COPD exacerbation with fever at presentation -Resp therapy -Pt reports "allergy" to steroids. He reports they make him "mean" -On azithromycin (2) Acute on chronic non ischemic systolic heart failure -EF 20% -s/p ICD -Dr. Hinojosa consulted -Bumex drip ordered -High Pro-BNP likely from poor systolic function and afib. (3) Atrial fibrillation -Tachy -Resume Coreg -PRN diltiazem for HR >120 sustained -Dig 0.5mg IV now and then 0.25 in 6 hours times one -[id number] = -PPM/ICD in place (4) COPD -Exacerbation -Resp therapy (5) DM -SSI -Hold home metformin (6) JEANNA -Bipap at night -He usually goes to bed with it but rarely wakes up with it on. He is unsure how longs he actually wears it at night. (7) RLS -continue Requip (8) HTN -Continue coreg -change diltiazem to prn for hr/bp (9) Parkinson's disease -Continue Sinemet (10) Prophylaxis -PPI and SQ heparin 11/12 Discontinue Rocephin and Azithromycin. Start Cefepime and Vanco for better coverage of MRSA and Pseudomonas in sputum C/S Overall weight is trending down with diuretics. Bumex drip was stopped and he is currently on normal home regimen. Weight trending down. Appreciate cardiac consultation- Continues on Coreg and Cardizem Continue with scheduled nebulizers and acapella Overall BGMs have been well controlled Heparin subcutaneous for DVT prophylaxis Case discussed with attending, Dr Wang 11/13 Continue cefepime and vancomycin for coverage of MRSA and Pseudomonas in sputum C/S. Will change Mucinex to Mucinex DM to help cough - add prn Tessalon Perles and Ricola. Continue with Neb Treatments. Potassium decreased to 3.4 - will give 20mEq KCl today at noon. Creatinine decreased to 1.3. Consult PT/OT to help increase functional status. Blood sugars showing increase. Continue ISS. Hold metformin for down due to resolving acute heart failure. Possible restart home lisinopril soon - creatinine improving and BP showing elevation to 130 to 140 systolic. 11/14 Continue cefepime and vancomycin for coverage of MRSA and Pseudomonas in sputum C/S - Day #3 of antibiotics. Continue Mucinex DM for cough with Tesmaxi Pereyra and Ricola. Continue with Neb Treatments. Unable to give steroids due to allergies. Hypokalemia resolved. Renal function continues to improve. Continue to encourage therapies for improvement in strength and functional abilities. Fast blood sugar improved and stable. Daytime sugars remain >200. Will restart home Metformin 500mg daily and continue to monitor blood sugars closely. SSI available. Blood pressure well controlled. Will continue to hold lisinopril and monitor pressures closely. Recheck BMP and Mg in am due to medications use. Recheck CBC in am secondary to bronchitis.
[2017-11-14] MEDS: METFORMIN 500 MG TABLET PO SCH (11:03)
[2017-11-14] MEDS: INSULIN REGULAR, HUMAN 100 UNIT/ML INJECTION SQ PRN ×3 (11:03→20:54)
--- NOTE | 2017-11-14 11:35 | Cardiology Progress Note ---
<Rhonda Adames M - Last Filed: 11/15/17 18:25> Subjective Principal diagnosis: CHF exacerbation, URI, COPD exacerbation Interval history: Almas is seen in follow up for CHF exacerbation, URI, COPD exacerbation. He is in bed watching Tarzan on TV. When asked how he feels he states "I'm alive!". He denies chest pain, pressure, palpitations or dizziness. Exam Vital signs: Temperature 96.8 F 11/13/17 22:45 Pulse Rate 64 11/14/17 08:00 Respiratory Rate 14 11/14/17 08:10 Blood Pressure 119/62 11/14/17 07:22 Pulse Oximetry 96 11/14/17 08:10 Inpatient Medications: Generic Name Dose Route Start Last Admin Trade Name Freq PRN Reason Stop Dose Admin Acetaminophen 1,300 mg 11/10/17 09:47 Tylenol Arthritis PO BID PRN Pain Albuterol/Ipratropium 3 ml 11/10/17 15:00 11/14/17 08:09 Duoneb AEROSOL 3 ml RTQID RODRIGO Administration Albuterol/Ipratropium 3 ml 11/10/17 14:16 Duoneb AEROSOL RTQID PRN Benzonatate 100 mg 11/13/17 11:02 11/14/17 08:34 Tessalon Perles PO 100 mg TID PRN Administration Cough Bisacodyl 10 mg 11/13/17 11:03 Dulcolax RECTALLY DAILY PRN Constipation Budesonide 0.5 mg 11/10/17 19:00 11/14/17 08:08 Pulmicort Inhalation AEROSOL 0.5 mg RTBID RODRIGO Administration Bumetanide 2 mg 11/11/17 17:30 11/14/17 08:34 Bumex 1 Mg Tab PO 2 mg BIDBS RODRIGO Administration Carbidopa/Levodopa 1 tab 11/10/17 15:00 11/14/17 08:35 Sinemet PO 1 tab TID RODRIGO Administration Carvedilol 25 mg 11/10/17 17:30 11/14/17 08:34 Coreg PO 25 mg BIDWM RODRIGO Administration Dextrose 1 ml 11/10/17 10:51 D50%W IVP PRN PRN Hypoglycemia Diltiazem HCl 30 mg 11/10/17 16:05 Cardizem Ir 30 Mg Tab PO Q6HR PRN FOR HR sustained >120 Diltiazem HCl 120 mg 11/13/17 10:30 11/14/17 08:36 Cardizem Cd 120 Mg PO 120 mg DAILY RODRIGO Administration Docusate Sodium 200 mg 11/10/17 21:00 11/13/17 20:16 Colace PO 200 mg HS RODRIGO Administration Gabapentin 600 mg 11/10/17 21:00 11/13/17 20:17 Neurontin PO 600 mg HS RODRIGO Administration Glucose 37.5 gm 11/10/17 10:51 Glutose 15 PO PRN PRN Hypoglycemia Guaifenesin/Dextromethorphan 10 ml 11/10/17 22:53 11/13/17 12:09 Robitussin Dm PO 10 ml Q4H PRN Administration Cough /Congestion Guaifenesin/Dextromethorphan 1 tab 11/13/17 21:00 11/14/17 08:34 Mucinex Dm PO 1 tab BID RODRIGO Administration Heparin Sodium (Porcine) 5,000 units 11/11/17 17:00 11/14/17 08:35 Heparin Sq SQ 5,000 units Q8HR RODRIGO Administration Cefepime HCl 1 gm/ Sodium 50 mls @ 100 mls/hr 11/12/17 09:45 11/14/17 10:31 Chloride IV Infused Q12H RODRIGO Infusion Vancomycin HCl 1,000 mg/ 250 mls @ 250 mls/hr 11/13/17 04:30 11/13/17 23:46 Sodium Chloride IV Infused Q18H RODRIGO Infusion Insulin Human Regular 2 - 8 unit 11/10/17 10:51 11/14/17 11:03 Novolin R SQ 5 unit SS PRN Administration Hyperglycemia Protocol Magnesium Hydroxide 30 ml 11/13/17 11:03 Mom PO DAILY PRN Constipation Menthol 1 lozenge 11/13/17 11:41 11/14/17 08:35 Ricola Sf MM 1 lozenge PRN PRN Administration Cough Metformin HCl 500 mg 11/14/17 10:30 11/14/17 11:03 Glucophage PO 500 mg WB RODRIGO Administration Multivitamins 1 tab 11/10/17 14:00 11/14/17 08:34 Total B + C PO 1 tab [id number] RODRIGO Administration Pantoprazole Sodium 20 mg 11/12/17 06:30 11/14/17 05:35 Protonix PO 20 mg ACB RODRIGO Administration Polyethylene Glycol 17 gm 03/13/18 11:03 Miralax PO DAILY PRN Constipation Potassium Chloride 20 meq 11/11/17 17:30 11/14/17 08:35 K-Dur 20 Meq Tablet PO 20 meq BIDWM RODRIGO Administration Ropinirole HCl 2 mg 11/10/17 15:00 11/14/17 08:34 Requip PO 2 mg TID RODRIGO Administration Silver Sulfadiazine 1 applic 11/11/17 09:00 11/14/17 08:37 Silvadene TOP 1 applic DAILY RODRIGO Administration Sodium Chloride 10 - 80 ml 11/09/17 21:40 11/13/17 08:57 Iv Flush IVF 10 ml PRN PRN Administration Flushing Tramadol HCl 50 mg 11/10/17 21:00 11/13/17 20:17 Ultram PO 50 mg HS RODRIGO Administration Discontinued Medications Generic Name Dose Route Start Last Admin Trade Name Freq PRN Reason Stop Dose Admin Albuterol/Ipratropium 3 ml 11/09/17 21:44 11/09/17 21:54 Duoneb AEROSOL 11/09/17 21:45 3 ml O ONE Administration Azithromycin 500 mg 11/10/17 09:00 11/10/17 10:33 Zithromax PO Not Given DAILY [facility] Azithromycin 500 mg 11/10/17 21:00 11/11/17 21:08 Zithromax PO 500 mg HS RODRIGO Administration Budesonide 0.5 mg 11/09/17 21:44 11/09/17 21:54 Pulmicort Inhalation AEROSOL 11/09/17 21:45 0.5 mg O ONE Administration Bumetanide 1 mg 11/09/17 23:59 11/10/17 01:06 Bumex 1 Mg/4 Ml Inj. IVP 11/10/17 00:00 1 mg O ONE Administration Bumetanide 2 mg 11/10/17 21:00 Bumex 1 Mg Tab PO BID RODRIGO Bumetanide 2 mg 11/10/17 11:30 11/10/17 12:23 Bumex 1 Mg/4 Ml Inj. IVP 11/10/17 11:31 2 mg O ONE Administration Carbidopa/Levodopa 1 tab 11/10/17 09:00 11/10/17 10:17 Sinemet PO Not Given TID [facility] Dexamethasone 8 mg 11/09/17 22:15 11/09/17 22:32 Decadron IVP 11/09/17 22:16 8 mg O ONE Administration Digoxin 500 mcg 11/10/17 11:25 11/10/17 12:14 Lanoxin IVP 11/10/17 11:26 500 mcg O ONE Administration Digoxin 125 mcg 11/10/17 16:00 11/10/17 16:40 Lanoxin IVP 11/10/17 16:01 125 mcg O ONE Administration Diltiazem HCl 120 mg 11/10/17 10:00 11/10/17 10:40 Cardizem Cd 120 Mg PO 120 mg DAILY RODRIGO Administration Docusate Sodium 200 mg 11/10/17 09:00 11/10/17 10:17 Colace PO Not Given BID RODRIGO Gabapentin 600 mg 11/10/17 22:00 11/10/17 01:09 Neurontin PO 600 mg DAILY RODRIGO Administration Guaifenesin 1,200 mg 11/10/17 21:00 11/13/17 08:09 Mucinex La PO 1,200 mg BID RODRIGO Administration Albumin Human 12.5 g/ IV 50 mls @ 50 mls/hr 11/09/17 23:59 11/10/17 02:07 Solution IV 11/10/17 00:58 Infused O ONE Infusion Bumetanide 25 mg/ IV Solution 100 mls @ 2 mls/hr 11/10/17 12:00 11/11/17 10: 30 IV Infused Q24H RODRIGO Infusion Ceftriaxone Sodium 1 g/ Sodium 100 mls @ 200 mls/hr 11/10/17 16:15 11/10/17 17:55 Chloride IV Infused Q24H RODRIGO Infusion Ceftriaxone Sodium 1 g/ Sodium 50 mls @ 200 mls/hr 11/11/17 09:00 11/13/17 07 :56 Chloride IV Not Given Q24HR RODRIGO Sodium Chloride 500 mls @ 10 mls/hr 11/10/17 21:39 11/12/17 02:02 Normal Saline IV Not Given .Q24H RODRIGO Vancomycin HCl 1,500 mg/ 500 mls @ 250 mls/hr 11/12/17 10:30 11/13/17 07:56 Sodium Chloride IV 11/12/17 12:29 Infused O ONE Infusion Insulin Human Regular 12 unit 11/10/17 11:00 11/10/17 12:11 Novolin R SQ 11/10/17 11:01 12 unit O ONE Administration Insulin Human Regular 12 unit 11/10/17 16:15 11/10/17 16:40 Novolin R SQ 11/10/17 16:16 12 unit O ONE Administration Potassium Chloride 20 meq 11/11/17 09:00 11/11/17 09:30 K-Dur 20 Meq Tablet PO Not Given DAILY RODRIGO Potassium Chloride 20 meq 11/10/17 12:00 11/11/17 09:36 K-Dur 20 Meq Tablet PO 20 meq TIDWM RODRIGO Administration Potassium Chloride 20 meq 11/13/17 12:30 11/13/17 12:18 K-Dur 20 Meq Tablet PO 11/13/17 12:31 20 meq O ONE Administration Ropinirole HCl 2 mg 11/10/17 09:00 11/10/17 10:33 Requip PO Not Given TID RODRIGO Tramadol HCl 50 mg 11/10/17 21:00 11/10/17 01:08 Ultram PO 50 mg HS RODRIGO Administration Vancomycin HCl 1 each 11/12/17 09:12 11/13/17 07:30 Pharmacy Consult - Vancomycin 11/12/17 09:13 1 each O ONE Administration - Constitutional no acute distress, well nourished, cooperative - Routine HEENT Exam Head: Present: normocephalic ENT: Present: mucous membranes moist - Routine Neck Exam Absent: JVD, carotid bruit - Routine Chest/Breast/Axilla Exam Chest wall: Present: pacemaker. Absent: tenderness - Routine Respiratory Exam Present: decreased breath sounds, wheezes, crackles - Routine Cardiovascular Exam Present: irregular rhythm. Absent: JVD - Routine Abdominal Exam Present: soft, normoactive bowel sounds - Routine Extremities Exam Present: edema - Routine Skin Exam Present: intact, dry, warm - Routine Neurological Exam Present: alert, oriented X3 - Routine Psychiatric Exam Present: normal affect, normal thought process - Additional findings Additional findings: Acetaminophen (Tylenol Arthritis) 1,300 mg PO BID PRN PRN Reason: Pain Albuterol/Ipratropium (Duoneb) 3 ml AEROSOL RTQID RODRIGO Last Admin: 11/14/17 08:09 Dose: 3 ml Albuterol/Ipratropium (Duoneb) 3 ml AEROSOL RTQID PRN Benzonatate (Tessalon Perles) 100 mg PO TID PRN PRN Reason: Cough Last Admin: 11/14/17 08:34 Dose: 100 mg Bisacodyl (Dulcolax) 10 mg RECTALLY DAILY PRN PRN Reason: Constipation Budesonide (Pulmicort Inhalation) 0.5 mg AEROSOL RTBID [facility] Last Admin: 11/14/17 08:08 Dose: 0.5 mg Bumetanide (Bumex 1 Mg Tab) 2 mg PO BIDBS [facility] Last Admin: 11/14/17 08:34 Dose: 2 mg Carbidopa/Levodopa (Sinemet) 1 tab PO TID [facility] Last Admin: 11/14/17 08:35 Dose: 1 tab Carvedilol (Coreg) 25 mg PO BIDWM [facility] Last Admin: 11/14/17 08:34 Dose: 25 mg Dextrose (D50%W) 1 ml IVP PRN PRN PRN Reason: Hypoglycemia Diltiazem HCl (Cardizem Ir 30 Mg Tab) 30 mg PO Q6HR PRN PRN Reason: FOR HR sustained >120 Diltiazem HCl (Cardizem Cd 120 Mg) 120 mg PO DAILY [facility] Last Admin: 11/14/17 08:36 Dose: 120 mg Docusate Sodium (Colace) 200 mg PO HS [facility] Last Admin: 11/13/17 20:16 Dose: 200 mg Gabapentin (Neurontin) 600 mg PO HS [facility] Last Admin: 11/13/17 20:17 Dose: 600 mg Glucose (Glutose 15) 37.5 gm PO PRN PRN PRN Reason: Hypoglycemia Guaifenesin/Dextromethorphan (Robitussin Dm) 10 ml PO Q4H PRN PRN Reason: Cough /Congestion Last Admin: 11/13/17 12:09 Dose: 10 ml Guaifenesin/Dextromethorphan (Mucinex Dm) 1 tab PO BID [facility] Last Admin: 11/14/17 08:34 Dose: 1 tab Heparin Sodium (Porcine) (Heparin Sq) 5,000 units SQ Q8HR [facility] Last Admin: 11/14/17 08:35 Dose: 5,000 units Cefepime HCl 1 gm/ Sodium (Chloride) 50 mls @ 100 mls/hr IV Q12H [facility] Last Infusion: 11/14/17 10:31 Dose: Infused Vancomycin HCl 1,000 mg/ (Sodium Chloride) 250 mls @ 250 mls/hr IV Q18H [facility] Last Infusion: 11/13/17 23:46 Dose: Infused Insulin Human Regular (Novolin R) 2 - 8 unit SQ SS PRN; Protocol PRN Reason: Hyperglycemia Last Admin: 11/14/17 11:03 Dose: 5 unit Magnesium Hydroxide (Mom) 30 ml PO DAILY PRN PRN Reason: Constipation Menthol (Ricola Sf) 1 lozenge MM PRN PRN PRN Reason: Cough Last Admin: 11/14/17 08:35 Dose: 1 lozenge Metformin HCl (Glucophage) 500 mg PO WB [facility] Last Admin: 11/14/17 11:03 Dose: 500 mg Multivitamins (Total B + C) 1 tab PO [id number] [facility] Last Admin: 11/14/17 08:34 Dose: 1 tab Pantoprazole Sodium (Protonix) 20 mg PO ACB [facility] Last Admin: 11/14/17 05:35 Dose: 20 mg Polyethylene Glycol (Miralax) 17 gm PO DAILY PRN PRN Reason: Constipation Potassium Chloride (K-Dur 20 Meq Tablet) 20 meq PO BIDWM [facility] Last Admin: 11/14/17 08:35 Dose: 20 meq Ropinirole HCl (Requip) 2 mg PO TID [facility] Last Admin: 11/14/17 08:34 Dose: 2 mg Silver Sulfadiazine (Silvadene) 1 applic TOP DAILY [facility] Last Admin: 11/14/17 08:37 Dose: 1 applic Sodium Chloride (Iv Flush) 10 - 80 ml IVF PRN PRN PRN Reason: Flushing Last Admin: 11/13/17 08:57 Dose: 10 ml Tramadol HCl (Ultram) 50 mg PO HS [facility] Last Admin: 11/13/17 20:17 Dose: 50 mg Results 11/15/17 04:27 11/15/17 08:26 CBC 11/14/17 Range/Units 04:22 WBC 8.9 (4.5-11.0) T/MM3 RBC 4.75 (4.50-5.90) M/MM3 Hgb 14.0 (13.5-17.5) GM/DL Hct 44.2 (41-53) % Plt Count 177 (130-400) T/MM3 Neut # (Auto) 5.9 (1.8-7.7) T/MM3 Lymph # (Auto) 2.0 (1-4.8) T/MM3 Wise # (Auto) 0.9 H (0-0.8) T/MM3 Eos # (Auto) 0.1 (0-0.5) T/MM3 Baso # (Auto) 0.0 (0-0.2) T/MM3 Comprehensive Metabolic Panel 11/14/17 Range/Units 04:22 Sodium 143 (134-144) MEQ/L Potassium 3.8 (3.6-5) MEQ/L Chloride 93 L (98-107) MEQ/L Carbon Dioxide 38 H (22-30) MEQ/L BUN 38.0 H (9-20) MG/DL Creatinine 1.1 D (0.8-1.5) mg/dL Glucose 95 (75-110) MG/DL Calcium 8.5 (8.4-10.2) MG/DL Intake and Output 11/13/17 11/14/17 11/14/17 22:59 06:59 14:59 Intake Total 290 / 290 400 / 400 50 / 50 Output Total 400 / 400 Balance 290 / 290 0 / 0 50 / 50 Intake: IV 50 / 50 250 / 250 50 / 50 Cefepime 1 gm In Ns 50 ml @ 100 50 / 50 50 / 50 mls/hr IV Q12H RODRIGO Rx#: [id number] Vancomycin 1,000 mg In NS 250ml 250 / 250 250 ml @ 250 mls/hr IV Q18H RODRIGO Rx#:[id number] Oral 240 / 240 150 / 150 Output: Urine 400 / 400 Other: Urine Color Yellow Stool Color Brown Stool Consistency Formed Size of Bowel Movement Small # Voids 1 1 # Bowel Movements 1 Weight 147 lb 7.828 oz Patient Weight 11/15/17 06:59 Weight 147 lb 7.828 oz Assessment and Plan - Assessment and Plan (1) Bronchitis Status: Acute (2) Acute on chronic systolic (congestive) heart failure Status: Acute (3) Paroxysmal atrial fibrillation Status: Chronic (4) Essential (primary) hypertension Status: Chronic (5) ICD (implantable cardioverter-defibrillator) in place Status: Chronic (6) Cardiomyopathy Status: Chronic - Assessment and Plan 11/10/17: Rate up to 160's in afib on tele this AM. IV dig .5mg IVP now, .25mg IVP in 4 hours. Start Coreg 25mg bid this evening, hold sbp <100. Pt got dose of diltiazem 180 this am. Not a full anticoagulation candidate due to personal hx of significant bleed. Bumex 2mg IVP now, then 0.5mg/hr Bumex gtt. Potassium 3.6 today, replace 20meq TID, follow renal function and lytes. Agree with fluid restriction and low Na diet. COPD, URI, DM managed per attending. 11/11/17: down 1kg, I&O -1800 since admit. Creatinine and lytes stable today. CxR today mild improvement of central venous congestion when compared to . DC bumex drip, resume home dosing of bumex to 2mg bid (dose increase just this week from Ashish OV). K 3.6 today, replace 20meq bid, follow labs. Rate well controlled on coreg 25mg bid, IV dig yesterday and short acting diltiazem 30mg q6 prn rate >120 (per attending order). Continue current AFib rate meds, consider changing back to home cardizem 180mg daily as bp allows. URI, COPD, DM2 management per attending, pt reporting improved cough with nebulizing tx's. 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 CHF is at patient's baseline Hospital Course Summary Disclaimer: The visit summary below is not to be considered part of the above Progress Note. Hospital Course: 11/11 (1) Bronchitis/COPD exacerbation with fever at presentation -Resp therapy -Pt reports "allergy" to steroids. He reports they make him "mean" -On azithromycin (2) Acute on chronic non ischemic systolic heart failure -EF 20% -s/p ICD -Dr. Hinojosa consulted -Bumex drip ordered -High Pro-BNP likely from poor systolic function and afib. (3) Atrial fibrillation -Tachy -Resume coreg -PRN diltiazem for HR >120 sustained -Dig 0.5mg IV now and then 0.25 in 6 hours times one -[id number] = -PPM/ICD in place (4) COPD -Exacerbation -Resp therapy (5) DM -SSI -Hold home metformin (6) JEANNA -Bipap at night -He usually goes to bed with it but rarely wakes up with it on. He is unsure how longs he actually wears it at night. (7) RLS -continue Requip (8) HTN -Continue coreg -change diltiazem to prn for hr/bp (9) Parkinsons disease -Continue Sinemet (10) Prophylaxis -PPI and SQ heparin 11/12 Discontinue Rocephin and Azithromycin. Start Cefepime and Vanco for better coverage of MRSA and Pseudomonas in sputum C/S Overall weight is trending down with diuretics. Bumex drip was stopped and he is currently on normal home regimen. Weight trending down. Appreciate cardiac consultation- Continues on Coreg and Cardizem Continue with scheduled nebulizers and acapella Overall BGMs have been well controlled Heparin subcutaneous for DVT prophylaxis Case discussed with attending, Dr Wang Plan - 11/14/17: Continue cefepime and vancomycin for coverage of MRSA and Pseudomonas in sputum C/S - Day #3 of antibiotics. Continue Mucinex DM for cough with Tessalon Perles and Ricola. Continue with Neb Treatments. Unable to give steroids due to allergies. Hypokalemia resolved. Renal function continues to improve. Continue to encourage therapies for improvement in strength and functional abilities. Fast blood sugar improved and stable. Daytime sugars remain >200. Will restart home Metformin 500mg daily and continue to monitor blood sugars closely. SSI available. Blood pressure well controlled. Will continue to hold lisinopril and monitor pressures closely. Recheck BMP and Mg in am due to medications use. Recheck CBC in am secondary to bronchitis. <Jonathan Hinojosa - Last Filed: 11/21/17 12:41> Exam Vital signs: Temperature 95.4 F L 11/19/17 15:05 Pulse Rate 50 L 11/19/17 15:05 Respiratory Rate 18 11/19/17 15:05 Blood Pressure 121/62 11/19/17 15:05 Pulse Oximetry 93 11/19/17 15:05 Inpatient Medications: Discontinued Medications Generic Name Dose Route Start Last Admin Trade Name Freq PRN Reason Stop Dose Admin Acetaminophen 1,300 mg 11/10/17 09:47 11/15/17 09:26 Tylenol Arthritis PO 1,300 mg BID PRN Administration Pain Acetazolamide 500 mg 11/15/17 09:24 11/15/17 11:46 Diamox PO 11/15/17 09:25 500 mg O ONE Administration Albuterol/Ipratropium 3 ml 11/09/17 21:44 11/09/17 21:54 Duoneb AEROSOL 11/09/17 21:45 3 ml O ONE Administration Albuterol/Ipratropium 3 ml 11/10/17 15:00 11/19/17 14:48 Duoneb AEROSOL 3 ml RTQID RODRIGO Administration Albuterol/Ipratropium 3 ml 11/10/17 14:16 Duoneb AEROSOL RTQID PRN Azithromycin 500 mg 11/10/17 09:00 11/10/17 10:33 Zithromax PO Not Given DAILY RODRIGO Azithromycin 500 mg 11/10/17 21:00 11/11/17 21:08 Zithromax PO 500 mg HS RODRIGO Administration Benzonatate 100 mg 11/13/17 11:02 11/16/17 09:29 Tessalon Perles PO 100 mg TID PRN Administration Cough Bisacodyl 10 mg 11/13/17 11:03 Dulcolax RECTALLY DAILY PRN Constipation Budesonide 0.5 mg 11/09/17 21:44 11/09/17 21:54 Pulmicort Inhalation AEROSOL 11/09/17 21:45 0.5 mg O ONE Administration Budesonide 0.5 mg 11/10/17 19:00 11/19/17 06:34 Pulmicort Inhalation AEROSOL 0.5 mg RTBID RODRIGO Administration Bumetanide 1 mg 11/09/17 23:59 11/10/17 01:06 Bumex 1 Mg/4 Ml Inj. IVP 11/10/17 00:00 1 mg O ONE Administration Bumetanide 2 mg 11/10/17 21:00 Bumex 1 Mg Tab PO BID RODRIGO Bumetanide 2 mg 11/10/17 11:30 11/10/17 12:23 Bumex 1 Mg/4 Ml Inj. IVP 11/10/17 11:31 2 mg O ONE Administration Bumetanide 2 mg 11/11/17 17:30 11/15/17 09:23 Bumex 1 Mg Tab PO 2 mg BIDBS RODRIGO Administration Bumetanide 2 mg 11/15/17 15:03 11/18/17 09:43 Bumex 1 Mg Tab PO 2 mg TID RODRIGO Administration Bumetanide 2 mg 11/18/17 14:00 11/19/17 15:57 Bumex 1 Mg Tab PO 2 mg [id number] RODRIGO Administration Carbidopa/Levodopa 1 tab 11/10/17 09:00 11/10/17 10:17 Sinemet PO Not Given TID RODRIGO Carbidopa/Levodopa 1 tab 11/10/17 15:00 11/19/17 16:02 Sinemet PO 1 tab TID RODRIGO Administration Carvedilol 25 mg 11/10/17 17:30 11/19/17 08:51 Coreg PO 25 mg BIDWM RODRIGO Administration Clotrimazole 10 mg 11/16/17 18:30 11/19/17 15:58 Mycelex Carlos Manuel MM 10 mg 5XD RODRIGO Administration Dexamethasone 8 mg 11/09/17 22:15 11/09/17 22:32 Decadron IVP 11/09/17 22:16 8 mg O ONE Administration Dextrose 1 ml 11/10/17 10:51 D50%W IVP PRN PRN Hypoglycemia Digoxin 500 mcg 11/10/17 11:25 11/10/17 12:14 Lanoxin IVP 11/10/17 11:26 500 mcg O ONE Administration Digoxin 125 mcg 11/10/17 16:00 11/10/17 16:40 Lanoxin IVP 11/10/17 16:01 125 mcg O ONE Administration Diltiazem HCl 120 mg 11/10/17 10:00 11/10/17 10:40 Cardizem Cd 120 Mg PO 120 mg DAILY RODRIGO Administration Diltiazem HCl 30 mg 11/10/17 16:05 Cardizem Ir 30 Mg Tab PO Q6HR PRN FOR HR sustained >120 Diltiazem HCl 120 mg 11/13/17 10:30 11/19/17 08:52 Cardizem Cd 120 Mg PO 120 mg DAILY RODRIGO Administration Docusate Sodium 200 mg 11/10/17 09:00 11/10/17 10:17 Colace PO Not Given BID RODRIGO Docusate Sodium 200 mg 11/10/17 21:00 11/18/17 20:09 Colace PO 200 mg HS RODRIGO Administration Gabapentin 600 mg 11/10/17 22:00 11/10/17 01:09 Neurontin PO 600 mg DAILY RODRIGO Administration Gabapentin 600 mg 11/10/17 21:00 11/18/17 20:09 Neurontin PO 600 mg HS RODRIGO Administration Glucose 37.5 gm 11/10/17 10:51 Glutose 15 PO PRN PRN Hypoglycemia Guaifenesin 1,200 mg 11/10/17 21:00 11/13/17 08:09 Mucinex La PO 1,200 mg BID RODRIGO Administration Guaifenesin/Dextromethorphan 10 ml 11/10/17 22:53 11/14/17 17:48 Robitussin Dm PO 10 ml Q4H PRN Administration Cough /Congestion Guaifenesin/Dextromethorphan 1 tab 11/13/17 21:00 11/19/17 08:50 Mucinex Dm PO 1 tab BID RODRIGO Administration Heparin Sodium (Porcine) 5,000 units 11/11/17 17:00 11/19/17 08:50 Heparin Sq SQ 5,000 units Q8HR RODRIGO Administration Albumin Human 12.5 g/ IV 50 mls @ 50 mls/hr 11/09/17 23:59 11/10/17 02:07 Solution IV 11/10/17 00:58 Infused O ONE Infusion Bumetanide 25 mg/ IV Solution 100 mls @ 2 mls/hr 11/10/17 12:00 11/11/17 10: 30 IV Infused Q24H RODRIGO Infusion Ceftriaxone Sodium 1 g/ Sodium 100 mls @ 200 mls/hr 11/10/17 16:15 11/10/17 17:55 Chloride IV Infused Q24H RODRIGO Infusion Ceftriaxone Sodium 1 g/ Sodium 50 mls @ 200 mls/hr 11/11/17 09:00 11/13/17 07 :56 Chloride IV Not Given Q24HR RODRIGO Sodium Chloride 500 mls @ 10 mls/hr 11/10/17 21:39 11/12/17 02:02 Normal Saline IV Not Given .Q24H RODRIGO Cefepime HCl 1 gm/ Sodium 50 mls @ 100 mls/hr 11/12/17 09:45 11/19/17 09:52 Chloride IV 100 mls/hr Q12H RODRIGO Administration Vancomycin HCl 1,500 mg/ 500 mls @ 250 mls/hr 11/12/17 10:30 11/13/17 07:56 Sodium Chloride IV 11/12/17 12:29 Infused O ONE Infusion Vancomycin HCl 1,000 mg/ 250 mls @ 250 mls/hr 11/13/17 04:30 11/16/17 21:25 Sodium Chloride IV Not Given Q18H RODRIGO Vancomycin HCl 1,000 mg/ 250 mls @ 250 mls/hr 11/15/17 12:00 11/16/17 07:14 Sodium Chloride IV Infused Q18H RODRIGO Infusion Vancomycin HCl 1,000 mg/ 250 mls @ 250 mls/hr 11/17/17 09:00 11/17/17 11:16 Sodium Chloride IV Infused Q24H RODRIGO Infusion Vancomycin HCl 1,250 mg/ 250 mls @ 200 mls/hr 11/18/17 18:00 11/18/17 19:30 Sodium Chloride IV Infused Q36H RODRIGO Infusion Insulin Human Regular 2 - 8 unit 11/10/17 10:51 11/19/17 15:56 Novolin R SQ 5 unit SS PRN Administration Hyperglycemia Protocol Insulin Human Regular 12 unit 11/10/17 11:00 11/10/17 12:11 Novolin R SQ 11/10/17 11:01 12 unit O ONE Administration Insulin Human Regular 12 unit 11/10/17 16:15 11/10/17 16:40 Novolin R SQ 11/10/17 16:16 12 unit O ONE Administration Lisinopril 2.5 mg 11/16/17 09:15 11/16/17 10:01 Prinivil PO 2.5 mg DAILY RODRIGO Administration Lisinopril 5 mg 11/16/17 15:15 Prinivil PO DAILY RODRIGO Lisinopril 2.5 mg 11/17/17 09:00 11/19/17 08:52 Prinivil PO 2.5 mg DAILY RODRIGO Administration Magnesium Hydroxide 30 ml 11/13/17 11:03 Mom PO DAILY PRN Constipation Menthol 1 lozenge 11/13/17 11:41 11/14/17 15:24 Ricola Sf MM 1 lozenge PRN PRN Administration Cough Metformin HCl 500 mg 11/14/17 10:30 11/18/17 09:42 Glucophage PO 500 mg WB RODRIGO Administration Metformin HCl 500 mg 11/18/17 17:30 11/19/17 08:51 Glucophage PO 500 mg BIDWM RODRIGO Administration Multivitamins 1 tab 11/10/17 14:00 11/19/17 15:57 Total B + C PO 1 tab [id number] RODRIGO Administration Pantoprazole Sodium 20 mg 11/12/17 06:30 11/19/17 06:04 Protonix PO 20 mg ACB RODRIGO Administration Polyethylene Glycol 17 gm 11/13/17 11:03 Miralax PO DAILY PRN Constipation Potassium Chloride 20 meq 11/11/17 09:00 11/11/17 09:30 K-Dur 20 Meq Tablet PO Not Given DAILY RODRIGO Potassium Chloride 20 meq 11/10/17 12:00 11/11/17 09:36 K-Dur 20 Meq Tablet PO 20 meq TIDWM RODRIGO Administration Potassium Chloride 20 meq 11/11/17 17:30 11/19/17 08:51 K-Dur 20 Meq Tablet PO 20 meq BIDWM RODRIGO Administration Potassium Chloride 20 meq 11/13/17 12:30 11/13/17 12:18 K-Dur 20 Meq Tablet PO 11/13/17 12:31 20 meq O ONE Administration Ropinirole HCl 2 mg 11/10/17 09:00 11/10/17 10:33 Requip PO Not Given TID RODRIGO Ropinirole HCl 2 mg 11/10/17 15:00 11/19/17 15:59 Requip PO 2 mg TID RODRIGO Administration Silver Sulfadiazine 1 applic 11/11/17 09:00 11/19/17 08:52 Silvadene TOP 1 applic DAILY RODRIGO Administration Sodium Chloride 10 - 80 ml 11/09/17 21:40 11/19/17 09:53 Iv Flush IVF 10 ml PRN PRN Administration Flushing Sodium Chloride 500 ml 11/16/17 09:34 11/18/17 18:06 Normal Saline IV 500 ml PRN PRN Administration Sotalol HCl 20 mg 11/16/17 09:00 11/16/17 21:25 Betapace PO Not Given DAILY RODRIGO Sotalol HCl 20 mg 11/16/17 16:15 11/18/17 09:43 Betapace PO 20 mg DAILY RODRIGO Administration Tramadol HCl 50 mg 11/10/17 21:00 11/10/17 01:08 Ultram PO 50 mg HS RODRIGO Administration Tramadol HCl 50 mg 11/10/17 21:00 11/18/17 20:09 Ultram PO 50 mg HS RODRIGO Administration Vancomycin HCl 1 each 11/12/17 09:12 11/13/17 07:30 Pharmacy Consult - Vancomycin 11/12/17 09:13 1 each O ONE Administration Results 11/19/17 04:03 11/19/17 04:03 Assessment and Plan - Assessment and Plan (1) Acute on chronic systolic (congestive) heart failure Status: Acute (2) Paroxysmal atrial fibrillation Status: Chronic (3) Essential (primary) hypertension Status: Chronic (4) ICD (implantable cardioverter-defibrillator) in place Status: Chronic (5) Bronchitis Status: Acute (6) Cardiomyopathy Status: Chronic - Attestation Attestation Narrative: 11/21/17 12:40 Recommendation After examining the patient I agree with the above assessment. I am involved in the formulation of the patient's plan of care. Hospital Course Summary Disclaimer: The visit summary below is not to be considered part of the above Progress Note.
[2017-11-14] MEDS: GUAIFENESIN/DM 5ml ORAL LIQUID PO PRN (17:48)
[2017-11-14] MEDS: GABAPENTIN 600 MG TABLET PO SCH (20:51)
[2017-11-14] MEDS: DOCUSATE SODIUM 100 MG CAPSULE PO SCH (20:51)
[2017-11-14] MEDS: TRAMADOL 50 MG TABLET PO SCH (20:53)
[2017-11-15] MEDS: HEPARIN SUB-Q 5,000units/0.5ml INJECTION SQ SCH ×3 (01:01→17:57)
[2017-11-15] MEDS: PANTOPRAZOLE 20 MG TABLET PO SCH (05:42)
[2017-11-15] MEDS: ALBUTEROL/IPRATROPIUM 2.5mg-0.5mg/3ml NEB AEROSOL SCH ×4 (08:02→20:57)
[2017-11-15] MEDS: BUDESONIDE INH.SOLN 0.5mg/2ml NEB AEROSOL SCH ×2 (08:03→20:57)
--- NOTE | 2017-11-15 08:29 | XRay Report ---
INDICATION: F/U PROCEDURE: CHEST 2-VIEWS UPRIGHT (PA & LAT) Encounter: Initial COMPARISON: November 11, 2017 FINDINGS: Left pacemaker defibrillator. No focal consolidative pneumonia. No pleural effusion or pneumothorax. Heart size and mediastinal contours are stable. Pulmonary vascular congestion has resolved. Impression: No acute cardiopulmonary disease. .
[2017-11-15] MEDS: CEFEPIME 1 GM in NS 50 ML IV SCH ×2 (09:22→21:46)
[2017-11-15] MEDS: VITAMIN B COMPLEX + C TABLET PO SCH ×2 (09:23→15:29)
[2017-11-15] MEDS: GUAIFENESIN/D-METHORPHAN 600mg/30mg TABLET PO SCH ×2 (09:23→20:40)
[2017-11-15] MEDS: METFORMIN 500 MG TABLET PO SCH (09:23)
[2017-11-15] MEDS: BUMETANIDE 1 MG TABLET PO SCH ×3 (09:23→20:40)
[2017-11-15] MEDS: CARVEDILOL 25 MG TABLET PO SCH ×2 (09:23→17:57)
[2017-11-15] MEDS: ROPINIROLE 2 MG TABLET PO SCH ×3 (09:23→20:39)
[2017-11-15] MEDS ORDERED: acetaZOLAMIDE 250 MG TABLET PO ONE (09:24)
[2017-11-15] MEDS: SILVER SULFADIAZINE 1% CREAM 25 GM TOP SCH (09:24)
--- NOTE | 2017-11-15 10:50 | Pharmacy Consult-Antibiotics ---
Pharmacy Consult-Vancomycin - Laboratory Information WBC 9.5 T/MM3 (4.5-11.0) 11/15/17 04:27 BUN 35.0 MG/DL (9-20) H 11/15/17 04:27 Creatinine 1.2 mg/dL (0.8-1.5) 11/15/17 08:26 Vancomycin Trough 21.92 ug/mL (15-20) H* 11/15/17 08:26 - Consult Information Vancomycin trough drawn over 3 hours early so dose is OK. Will continue to monitor. Thank you.
[2017-11-15] MEDS: INSULIN REGULAR, HUMAN 100 UNIT/ML INJECTION SQ PRN ×4 (10:58→20:41)
--- NOTE | 2017-11-15 11:22 | Progress Note ---
- Date 11/15/17 Subjective: Patient seen sitting on the side of the bed this am. He is irritated that the respiratory therapist is trying to make him do things he isn't able to do. Nurse reports pt gets SOA with the acapella and the therapist was encouraging pt to get through all of his reps. He does feel his cough is looser and he is improving some. Appetite is good, bowels are moving and he's having no CP. Objective Vital signs: Temperature 96.6 F L 11/15/17 07:16 Pulse Rate 78 11/15/17 07:16 Respiratory Rate 22 11/15/17 08:03 Blood Pressure 107/66 11/15/17 07:16 Pulse Oximetry 97 11/15/17 08:03 Rhythm: Second Degree AV Block Type I and 2:1 AV Block Height/Weight/BMI: Height 1.65 m Weight 64.9 kg Body Mass Index 24.7 - Constitutional Present: no acute distress, well nourished, well developed - Routine HEENT Exam Head: Present: normocephalic, atraumatic - Routine Respiratory Exam Present: crackles (coarse w/ diffuse crackles). Absent: wheezes - Routine Cardiovascular Exam Present: no murmur, irregularly irregular - Routine Abdominal Exam Present: soft, non distended, non tender - Routine Extremities Exam Present: no edema, normal capillary refill - Routine Skin Exam Present: dry, warm - Routine Neurological Exam Present: alert, oriented X3 - Routine Lymphatic Exam Lymphatic: Absent: adenopathy - Routine Psychiatric Exam Present: normal affect, cooperative Results - Labs CBC & Chem 7: 11/15/17 04:27 11/15/17 08:26 Labs: Date of Exam: 11/15/17 INDICATION: F/U PROCEDURE: CHEST 2-VIEWS UPRIGHT (PA & LAT) FINDINGS: Left pacemaker defibrillator. No focal consolidative pneumonia. No pleural effusion or pneumothorax. Heart size and mediastinal contours are stable. Pulmonary vascular congestion has resolved. Impression: No acute cardiopulmonary disease. Microbiology Results: Microbiology 11/10/17 01:25 Sputum, Expectorated Gram Stain - Final 11/10/17 01:25 Sputum, Expectorated Sputum Culture - Final Staphylococcus aureus, MRSA Pseudomonas aeruginosa Normal Respiratory Yue Assessment and Plan (1) Acute on chronic systolic (congestive) heart failure Current visit: No Status: Acute (2) Bronchitis Current visit: No Status: Acute Assessment and Plan: Impression Bronchitis/COPD exacerbation with fever at presentation +MRSA and + Pseudomonas Aeruginosa in Sputum C/S Hypernatremia (POA) - improved Acute on chronic non-ischemic systolic heart failure Severe cardiomyopathy - nonischemic Hx of ICD (implantable cardioverter-defibrillator) Not on anticoagulation chronically secondary to history of significant GI bleed Atrial fibrillation HTN COPD JEANNA on CPAP Type II diabetes Stage III CKD Acute kidney injury (POA) - resolved Restless Leg Syndrome Parkinson's disease Plan Continue cefepime and vancomycin for coverage of MRSA and Pseudomonas in sputum C/S - Day #4 of antibiotics. Continue DuoNeb and Pulmicort breathing txs and acapella. On heparin for VTE prophylaxis. BS's acceptable. Kathleen Stress the importance of more ambulation to both patient and nursing. Diamox 500mg po x1 today as CO2 elevated. DVT Prophylaxis: SQ Heparin Resuscitation Status: Full Code - Time spent with patient Time with patient PN: 25 minutes - Physician Narrative Physician: Frank Wang MD Narrative: Date: 11/15/17 Time: 1440 Have independently interviewed and examined pt. Chart reviewed. Case discussed with CM and my PA. Care plan developed with my supervision; agree with above. Breathing about the same-doing okay and times, then more short and congested at times. Does get upset at RT as he feels they are 'pushing' him too much. Notes strength decreased; not getting up and walking. Reports wanting to walk, but nursing not helping. Discussed with nursing and they report he is often very reluctant to get up and move. Eating well. Lungs: decreased, but improving breaths sounds. Crackles on left base. Much less congestion/wheezing than earlier this week. No distress CV: regular AB: soft nt MSE: awake alert Plan: Continue antibiotics - Day 4. Stress with patient the importance of walking when nursing comes by to have him walk. Stress with nursing the importance of him walking and going in to ambulate patient. Hospital Course Summary Disclaimer: The visit summary below is not to be considered part of the above Progress Note. Hospital Course: 11/11 (1) Bronchitis/COPD exacerbation with fever at presentation -Resp therapy -Pt reports "allergy" to steroids. He reports they make him "mean" -On azithromycin (2) Acute on chronic non ischemic systolic heart failure -EF 20% -s/p ICD -Dr. Hinojosa consulted -Bumex drip ordered -High Pro-BNP likely from poor systolic function and afib. (3) Atrial fibrillation -Tachy -Resume Coreg -PRN diltiazem for HR >120 sustained -Dig 0.5mg IV now and then 0.25 in 6 hours times one -[id number] = -PPM/ICD in place (4) COPD -Exacerbation -Resp therapy (5) DM -SSI -Hold home metformin (6) JEANNA -Bipap at night -He usually goes to bed with it but rarely wakes up with it on. He is unsure how longs he actually wears it at night. (7) RLS -continue Requip (8) HTN -Continue coreg -change diltiazem to prn for hr/bp (9) Parkinson's disease -Continue Sinemet (10) Prophylaxis -PPI and SQ heparin 11/12 Discontinue Rocephin and Azithromycin. Start Cefepime and Vanco for better coverage of MRSA and Pseudomonas in sputum C/S Overall weight is trending down with diuretics. Bumex drip was stopped and he is currently on normal home regimen. Weight trending down. Appreciate cardiac consultation- Continues on Coreg and Cardizem Continue with scheduled nebulizers and acapella Overall BGMs have been well controlled Heparin subcutaneous for DVT prophylaxis Case discussed with attending, Dr Wang 11/13 Continue cefepime and vancomycin for coverage of MRSA and Pseudomonas in sputum C/S. Will change Mucinex to Mucinex DM to help cough - add prn Tessalon Perles and Ricola. Continue with Neb Treatments. Potassium decreased to 3.4 - will give 20mEq KCl today at noon. Creatinine decreased to 1.3. Consult PT/OT to help increase functional status. Blood sugars showing increase. Continue ISS. Hold metformin for down due to resolving acute heart failure. Possible restart home lisinopril soon - creatinine improving and BP showing elevation to 130 to 140 systolic. 11/14 Continue cefepime and vancomycin for coverage of MRSA and Pseudomonas in sputum C/S - Day #3 of antibiotics. Continue Mucinex DM for cough with Tessalon Perles and Ricola. Continue with Neb Treatments. Unable to give steroids due to allergies. Hypokalemia resolved. Renal function continues to improve. Continue to encourage therapies for improvement in strength and functional abilities. Fast blood sugar improved and stable. Daytime sugars remain >200. Will restart home Metformin 500mg daily and continue to monitor blood sugars closely. SSI available. Blood pressure well controlled. Will continue to hold lisinopril and monitor pressures closely. Recheck BMP and Mg in am due to medications use. Recheck CBC in am secondary to bronchitis. 11/15 Continue cefepime and vancomycin for coverage of MRSA and Pseudomonas in sputum C/S - Day #4 of antibiotics. Continue DuoNeb and Pulmicort breathing txs and acapella. On heparin for VTE prophylaxis. BS's acceptable. Diamox 500mg po x1 today as CO2 elevated. Stressed the importance of increasing ambulation.
--- NOTE | 2017-11-15 18:34 | Cardiology Progress Note ---
<Rhonda Adames - Last Filed: 11/15/17 18:27> Subjective Principal diagnosis: CHF exacerbation, URI, COPD exacerbation Interval history: Almas is seen in follow up for CHF exacerbation, He is seen in his room on Medical, his is at the bedside. States he continue to cough but feels breathing is improved overall. He denies chest pain, pressure, palpitations or dizziness. Exam Vital signs: Temperature 95.2 F L 11/15/17 15:27 Pulse Rate 62 11/15/17 17:55 Respiratory Rate 20 11/15/17 15:27 Blood Pressure 126/61 11/15/17 17:55 Pulse Oximetry 97 11/15/17 17:55 Inpatient Medications: Generic Name Dose Route Start Last Admin Trade Name Freq PRN Reason Stop Dose Admin Acetaminophen 1,300 mg 11/10/17 09:47 11/15/17 09:26 Tylenol Arthritis PO 1,300 mg BID PRN Administration Pain Albuterol/Ipratropium 3 ml 11/10/17 15:00 11/15/17 13:45 Duoneb AEROSOL 3 ml RTQID RODRIGO Administration Albuterol/Ipratropium 3 ml 11/10/17 14:16 Duoneb AEROSOL RTQID PRN Benzonatate 100 mg 11/13/17 11:02 11/14/17 08:34 Tessalon Perles PO 100 mg TID PRN Administration Cough Bisacodyl 10 mg 11/13/17 11:03 Dulcolax RECTALLY DAILY PRN Constipation Budesonide 0.5 mg 11/10/17 19:00 11/15/17 08:03 Pulmicort Inhalation AEROSOL 0.5 mg RTBID RODRIGO Administration Bumetanide 2 mg 11/15/17 15:03 11/15/17 15:31 Bumex 1 Mg Tab PO 2 mg TID RODRIGO Administration Carbidopa/Levodopa 1 tab 11/10/17 15:00 11/15/17 15:29 Sinemet PO 1 tab TID RODRIGO Administration Carvedilol 25 mg 11/10/17 17:30 11/15/17 17:57 Coreg PO 25 mg BIDWM RODRIGO Administration Dextrose 1 ml 11/10/17 10:51 D50%W IVP PRN PRN Hypoglycemia Diltiazem HCl 30 mg 11/10/17 16:05 Cardizem Ir 30 Mg Tab PO Q6HR PRN FOR HR sustained >120 Diltiazem HCl 120 mg 11/13/17 10:30 11/15/17 09:23 Cardizem Cd 120 Mg PO 120 mg DAILY RODRIGO Administration Docusate Sodium 200 mg 11/10/17 21:00 11/14/17 20:51 Colace PO 200 mg HS RODRIGO Administration Gabapentin 600 mg 11/10/17 21:00 11/14/17 20:51 Neurontin PO 600 mg HS RODRIGO Administration Glucose 37.5 gm 11/10/17 10:51 Glutose 15 PO PRN PRN Hypoglycemia Guaifenesin/Dextromethorphan 10 ml 11/10/17 22:53 11/14/17 17:48 Robitussin Dm PO 10 ml Q4H PRN Administration Cough /Congestion Guaifenesin/Dextromethorphan 1 tab 11/13/17 21:00 11/15/17 09:23 Mucinex Dm PO 1 tab BID RODRIGO Administration Heparin Sodium (Porcine) 5,000 units 11/11/17 17:00 11/15/17 17:57 Heparin Sq SQ 5,000 units Q8HR RODRIGO Administration Cefepime HCl 1 gm/ Sodium 50 mls @ 100 mls/hr 11/12/17 09:45 11/15/17 12:52 Chloride IV Infused Q12H RODRIGO Infusion Vancomycin HCl 1,000 mg/ 250 mls @ 250 mls/hr 11/15/17 12:00 11/15/17 12:47 Sodium Chloride IV Infused Q18H RODRIGO Infusion Insulin Human Regular 2 - 8 unit 11/10/17 10:51 11/15/17 15:29 Novolin R SQ 5 unit SS PRN Administration Hyperglycemia Protocol Magnesium Hydroxide 30 ml 11/13/17 11:03 Mom PO DAILY PRN Constipation Menthol 1 lozenge 11/13/17 11:41 11/14/17 15:24 Ricola Sf MM 1 lozenge PRN PRN Administration Cough Metformin HCl 500 mg 11/14/17 10:30 11/15/17 09:23 Glucophage PO 500 mg WB RODRIGO Administration Multivitamins 1 tab 11/10/17 14:00 11/15/17 15:29 Total B + C PO 1 tab [id number] RODRIGO Administration Pantoprazole Sodium 20 mg 11/12/17 06:30 11/15/17 05:42 Protonix PO 20 mg ACB RODRIGO Administration Polyethylene Glycol 17 gm 11/13/17 11:03 Miralax PO DAILY PRN Constipation Potassium Chloride 20 meq 11/11/17 17:30 11/15/17 17:57 K-Dur 20 Meq Tablet PO 20 meq BIDWM RODRIGO Administration Ropinirole HCl 2 mg 11/10/17 15:00 11/15/17 15:29 Requip PO 2 mg TID RODRIGO Administration Silver Sulfadiazine 1 applic 11/11/17 09:00 11/15/17 09:24 Silvadene TOP 1 applic DAILY RODRIGO Administration Sodium Chloride 10 - 80 ml 11/09/17 21:40 11/13/17 08:57 Iv Flush IVF 10 ml PRN PRN Administration Flushing Tramadol HCl 50 mg 11/10/17 21:00 11/14/17 20:53 Ultram PO 50 mg HS RODRIGO Administration Discontinued Medications Generic Name Dose Route Start Last Admin Trade Name Freq PRN Reason Stop Dose Admin Acetazolamide 500 mg 11/15/17 09:24 11/15/17 11:46 Diamox PO 11/15/17 09:25 500 mg O ONE Administration Albuterol/Ipratropium 3 ml 11/09/17 21:44 11/09/17 21:54 Duoneb AEROSOL 11/09/17 21:45 3 ml O ONE Administration Azithromycin 500 mg 11/10/17 09:00 11/10/17 10:33 Zithromax PO Not Given DAILY RODRIGO Azithromycin 500 mg 11/10/17 21:00 11/11/17 21:08 Zithromax PO 500 mg HS RODRIGO Administration Budesonide 0.5 mg 11/09/17 21:44 11/09/17 21:54 Pulmicort Inhalation AEROSOL 11/09/17 21:45 0.5 mg O ONE Administration Bumetanide 1 mg 11/09/17 23:59 11/10/17 01:06 Bumex 1 Mg/4 Ml Inj. IVP 11/10/17 00:00 1 mg O ONE Administration Bumetanide 2 mg 11/10/17 21:00 Bumex 1 Mg Tab PO BID RODRIGO Bumetanide 2 mg 11/10/17 11:30 11/10/17 12:23 Bumex 1 Mg/4 Ml Inj. IVP 11/10/17 11:31 2 mg O ONE Administration Bumetanide 2 mg 11/11/17 17:30 11/15/17 09:23 Bumex 1 Mg Tab PO 2 mg BIDBS RODRIGO Administration Carbidopa/Levodopa 1 tab 11/10/17 09:00 11/10/17 10:17 Sinemet PO Not Given TID RODRIGO Dexamethasone 8 mg 11/09/17 22:15 11/09/17 22:32 Decadron IVP 11/09/17 22:16 8 mg O ONE Administration Digoxin 500 mcg 11/10/17 11:25 11/10/17 12:14 Lanoxin IVP 11/10/17 11:26 500 mcg O ONE Administration Digoxin 125 mcg 11/10/17 16:00 11/10/17 16:40 Lanoxin IVP 11/10/17 16:01 125 mcg O ONE Administration Diltiazem HCl 120 mg 11/10/17 10:00 11/10/17 10:40 Cardizem Cd 120 Mg PO 120 mg DAILY RODRIGO Administration Docusate Sodium 200 mg 11/10/17 09:00 11/10/17 10:17 Colace PO Not Given BID RODRIGO Gabapentin 600 mg 11/10/17 22:00 11/10/17 01:09 Neurontin PO 600 mg DAILY RODRIGO Administration Guaifenesin 1,200 mg 11/10/17 21:00 11/13/17 08:09 Mucinex La PO 1,200 mg BID RODRIGO Administration Albumin Human 12.5 g/ IV 50 mls @ 50 mls/hr 11/09/17 23:59 11/10/17 02:07 Solution IV 11/10/17 00:58 Infused O ONE Infusion Bumetanide 25 mg/ IV Solution 100 mls @ 2 mls/hr 11/10/17 12:00 11/11/17 10: 30 IV Infused Q24H RODRIGO Infusion Ceftriaxone Sodium 1 g/ Sodium 100 mls @ 200 mls/hr 11/10/17 16:15 11/10/17 17:55 Chloride IV Infused Q24H RODRIGO Infusion Ceftriaxone Sodium 1 g/ Sodium 50 mls @ 200 mls/hr 11/11/17 09:00 11/13/17 07 :56 Chloride IV Not Given Q24HR RODRIGO Sodium Chloride 500 mls @ 10 mls/hr 11/10/17 21:39 11/12/17 02:02 Normal Saline IV Not Given .Q24H RODRIGO Vancomycin HCl 1,500 mg/ 500 mls @ 250 mls/hr 11/12/17 10:30 11/13/17 07:56 Sodium Chloride IV 11/12/17 12:29 Infused O ONE Infusion Vancomycin HCl 1,000 mg/ 250 mls @ 250 mls/hr 11/13/17 04:30 11/14/17 18:51 Sodium Chloride IV Infused Q18H RODRIGO Infusion Insulin Human Regular 12 unit 11/10/17 11:00 11/10/17 12:11 Novolin R SQ 11/10/17 11:01 12 unit O ONE Administration Insulin Human Regular 12 unit 11/10/17 16:15 11/10/17 16:40 Novolin R SQ 11/10/17 16:16 12 unit O ONE Administration Potassium Chloride 20 meq 11/11/17 09:00 11/11/17 09:30 K-Dur 20 Meq Tablet PO Not Given DAILY RODRIGO Potassium Chloride 20 meq 11/10/17 12:00 11/11/17 09:36 K-Dur 20 Meq Tablet PO 20 meq TIDWM RODRIGO Administration Potassium Chloride 20 meq 11/13/17 12:30 11/13/17 12:18 K-Dur 20 Meq Tablet PO 11/13/17 12:31 20 meq O ONE Administration Ropinirole HCl 2 mg 11/10/17 09:00 11/10/17 10:33 Requip PO Not Given TID RODRIGO Tramadol HCl 50 mg 11/10/17 21:00 11/10/17 01:08 Ultram PO 50 mg HS RODRIGO Administration Vancomycin HCl 1 each 11/12/17 09:12 11/13/17 07:30 Pharmacy Consult - Vancomycin MC 11/12/17 09:13 1 each O ONE Administration - Constitutional no acute distress, well nourished, cooperative - Routine HEENT Exam Head: Present: normocephalic ENT: Present: mucous membranes moist - Routine Neck Exam Absent: JVD, carotid bruit - Routine Chest/Breast/Axilla Exam Chest wall: Present: pacemaker. Absent: tenderness - Routine Respiratory Exam Present: decreased breath sounds, wheezes. Absent: dyspnea - Routine Cardiovascular Exam Present: no murmur, irregular rhythm - Routine Abdominal Exam Present: soft - Routine Skin Exam Present: intact, dry, warm - Routine Neurological Exam Present: alert, oriented X3 - Routine Psychiatric Exam Present: normal affect, normal thought process - Additional findings Additional findings: Acetaminophen (Tylenol Arthritis) 1,300 mg PO BID PRN PRN Reason: Pain Last Admin: 11/15/17 09:26 Dose: 1,300 mg Albuterol/Ipratropium (Duoneb) 3 ml AEROSOL RTQID RODRIGO Last Admin: 11/15/17 13:45 Dose: 3 ml Albuterol/Ipratropium (Duoneb) 3 ml AEROSOL RTQID PRN Benzonatate (Tessalon Perles) 100 mg PO TID PRN PRN Reason: Cough Last Admin: 11/14/17 08:34 Dose: 100 mg Bisacodyl (Dulcolax) 10 mg RECTALLY DAILY PRN PRN Reason: Constipation Budesonide (Pulmicort Inhalation) 0.5 mg AEROSOL RTBID [facility] Last Admin: 11/15/17 08:03 Dose: 0.5 mg Bumetanide (Bumex 1 Mg Tab) 2 mg PO TID [facility] Last Admin: 11/15/17 15:31 Dose: 2 mg Carbidopa/Levodopa (Sinemet) 1 tab PO TID [facility] Last Admin: 11/15/17 15:29 Dose: 1 tab Carvedilol (Coreg) 25 mg PO BIDWM [facility] Last Admin: 11/15/17 17:57 Dose: 25 mg Dextrose (D50%W) 1 ml IVP PRN PRN PRN Reason: Hypoglycemia Diltiazem HCl (Cardizem Ir 30 Mg Tab) 30 mg PO Q6HR PRN PRN Reason: FOR HR sustained >120 Diltiazem HCl (Cardizem Cd 120 Mg) 120 mg PO DAILY [facility] Last Admin: 11/15/17 09:23 Dose: 120 mg Docusate Sodium (Colace) 200 mg PO HS [facility] Last Admin: 11/14/17 20:51 Dose: 200 mg Gabapentin (Neurontin) 600 mg PO [facility] Last Admin: 11/14/17 20:51 Dose: 600 mg Glucose (Glutose 15) 37.5 gm PO PRN PRN PRN Reason: Hypoglycemia Guaifenesin/Dextromethorphan (Robitussin Dm) 10 ml PO Q4H PRN PRN Reason: Cough /Congestion Last Admin: 11/14/17 17:48 Dose: 10 ml Guaifenesin/Dextromethorphan (Mucinex Dm) 1 tab PO BID [facility] Last Admin: 11/15/17 09:23 Dose: 1 tab Heparin Sodium (Porcine) (Heparin Sq) 5,000 units SQ Q8HR [facility] Last Admin: 11/15/17 17:57 Dose: 5,000 units Cefepime HCl 1 gm/ Sodium (Chloride) 50 mls @ 100 mls/hr IV Q12H [facility] Last Infusion: 11/15/17 12:52 Dose: Infused Vancomycin HCl 1,000 mg/ (Sodium Chloride) 250 mls @ 250 mls/hr IV Q18H [facility] Last Infusion: 11/15/17 12:47 Dose: Infused Insulin Human Regular (Novolin R) 2 - 8 unit SQ SS PRN; Protocol PRN Reason: Hyperglycemia Last Admin: 11/15/17 15:29 Dose: 5 unit Magnesium Hydroxide (Mom) 30 ml PO DAILY PRN PRN Reason: Constipation Menthol (Ricola Sf) 1 lozenge MM PRN PRN PRN Reason: Cough Last Admin: 11/14/17 15:24 Dose: 1 lozenge Metformin HCl (Glucophage) 500 mg PO WB [facility] Last Admin: 11/15/17 09:23 Dose: 500 mg Multivitamins (Total B + C) 1 tab PO [id number] [facility] Last Admin: 11/15/17 15:29 Dose: 1 tab Pantoprazole Sodium (Protonix) 20 mg PO ACB [facility] Last Admin: 11/15/17 05:42 Dose: 20 mg Polyethylene Glycol (Miralax) 17 gm PO DAILY PRN PRN Reason: Constipation Potassium Chloride (K-Dur 20 Meq Tablet) 20 meq PO BIDWM [facility] Last Admin: 11/15/17 17:57 Dose: 20 meq Ropinirole HCl (Requip) 2 mg PO TID [facility] Last Admin: 11/15/17 15:29 Dose: 2 mg Silver Sulfadiazine (Silvadene) 1 applic TOP DAILY [facility] Last Admin: 11/15/17 09:24 Dose: 1 applic Sodium Chloride (Iv Flush) 10 - 80 ml IVF PRN PRN PRN Reason: Flushing Last Admin: 11/13/17 08:57 Dose: 10 ml Tramadol HCl (Ultram) 50 mg PO HS [facility] Last Admin: 11/14/17 20:53 Dose: 50 mg Results 11/15/17 04:27 11/15/17 08:26 CBC 11/15/17 Range/Units 04:27 WBC 9.5 (4.5-11.0) T/MM3 RBC 4.59 (4.50-5.90) M/MM3 Hgb 13.6 (13.5-17.5) GM/DL Hct 42.5 (41-53) % Plt Count 175 (130-400) T/MM3 Neut # (Auto) 6.6 (1.8-7.7) T/MM3 Lymph # (Auto) 1.8 (1-4.8) T/MM3 [place] # (Auto) 0.8 (0-0.8) T/MM3 Eos # (Auto) 0.2 (0-0.5) T/MM3 Baso # (Auto) 0.0 (0-0.2) T/MM3 Comprehensive Metabolic Panel 11/15/17 11/15/17 Range/Units 04:27 08:26 Sodium 143 (134-144) MEQ/L Potassium 3.9 (3.6-5) MEQ/L Chloride 94 L (98-107) MEQ/L Carbon Dioxide 38 H (22-30) MEQ/L BUN 35.0 H (9-20) MG/DL Creatinine 1.2 1.2 (0.8-1.5) mg/dL Glucose 95 (75-110) MG/DL Calcium 8.9 (8.4-10.2) MG/DL Intake and Output 11/15/17 11/15/17 11/15/17 06:59 14:59 22:59 Intake Total 0 / 0 840 / 840 Balance 0 / 0 840 / 840 Intake: IV 300 / 300 Cefepime 1 gm In Ns 50 ml @ 100 50 / 50 mls/hr IV Q12H RODRIGO Rx#: [id number] Vancomycin 1,000 mg In NS 250ml 250 / 250 250 ml @ 250 mls/hr IV Q18H RODRIGO Rx#:[id number] Oral 0 / 0 540 / 540 Other: Urine Color Yellow # Incontinent Voids 1 Weight 143 lb 1.28 oz Patient Weight 11/16/17 06:59 Weight 143 lb 1.28 oz - Imaging and Cardiology Imaging & Cardiology Narrative: Date of Exam: 11/15/17 Ordering Provider: Frank Wang MD Type of Exam(s): XR chest 2V Reason for Exam(s): F/U INDICATION: F/U PROCEDURE: CHEST 2-VIEWS UPRIGHT (PA & LAT) Encounter: Initial COMPARISON: November 11, 2017 FINDINGS: Left pacemaker defibrillator. No focal consolidative pneumonia. No pleural effusion or pneumothorax. Heart size and mediastinal contours are stable. Pulmonary vascular congestion has resolved. Impression: No acute cardiopulmonary disease. 11/15/17 18:44 Assessment and Plan - Assessment and Plan (1) Bronchitis Status: Acute (2) Acute on chronic systolic (congestive) heart failure Status: Acute (3) Paroxysmal atrial fibrillation Status: Chronic (4) Essential (primary) hypertension Status: Chronic (5) ICD (implantable cardioverter-defibrillator) in place Status: Chronic (6) Cardiomyopathy Status: Chronic - Assessment and Plan 11/10/17: Rate up to 160's in afib on tele this AM. IV dig .5mg IVP now, .25mg IVP in 4 hours. Start Coreg 25mg bid this evening, hold sbp <100. Pt got dose of diltiazem 180 this am. Not a full anticoagulation candidate due to personal hx of significant bleed. Bumex 2mg IVP now, then 0.5mg/hr Bumex gtt. Potassium 3.6 today, replace 20meq TID, follow renal function and lytes. Agree with fluid restriction and low Na diet. COPD, URI, DM managed per attending. 11/11/17: down 1kg, I&O -1800 since admit. Creatinine and lytes stable today. CxR today mild improvement of central venous congestion when compared to . DC bumex drip, resume home dosing of bumex to 2mg bid (dose increase just this week from Amirani OV). K 3.6 today, replace 20meq bid, follow labs. Rate well controlled on coreg 25mg bid, IV dig yesterday and short acting diltiazem 30mg q6 prn rate >120 (per attending order). Continue current AFib rate meds, consider changing back to home cardizem 180mg daily as bp allows. URI, COPD, DM2 management per attending, pt reporting improved cough with nebulizing tx's. 11/12/17 +MRSA and + Pseudomonas Aeruginosa in Sputum C/S - BNP in am 11/13/17 AFib: Resume home Cardizem 120mg po Daily for rate control - Is not a candidate for superintendent terminal coagulation due to history of GI bleeding on Pradaxa X2 BNP [id number] today, [place] [id number] 11/14/17 Stable from Cardiac standpoint for discharge. CHF is at patient's baseline 11/15/17 1500mL fluid restriction please - Increase Bumex to TID for now for gentle diuresis - Monitor renal and electrolytes Hospital Course Summary Disclaimer: The visit summary below is not to be considered part of the above Progress Note. Hospital Course: 11/11 (1) Bronchitis/COPD exacerbation with fever at presentation -Resp therapy -Pt reports "allergy" to steroids. He reports they make him "mean" -On azithromycin (2) Acute on chronic non ischemic systolic heart failure -EF 20% -s/p ICD -Dr. Hinojosa consulted -Bumex drip ordered -High Pro-BNP likely from poor systolic function and afib. (3) Atrial fibrillation -Tachy -Resume coreg -PRN diltiazem for HR >120 sustained -Dig 0.5mg IV now and then 0.25 in 6 hours times one -[id number] = -PPM/ICD in place (4) COPD -Exacerbation -Resp therapy (5) DM -SSI -Hold home metformin (6) JEANNA -Bipap at night -He usually goes to bed with it but rarely wakes up with it on. He is unsure how longs he actually wears it at night. (7) RLS -continue Requip (8) HTN -Continue coreg -change diltiazem to prn for hr/bp (9) Parkinsons disease -Continue Sinemet (10) Prophylaxis -PPI and SQ heparin 11/12 Discontinue Rocephin and Azithromycin. Start Cefepime and Vanco for better coverage of MRSA and Pseudomonas in sputum C/S Overall weight is trending down with diuretics. Bumex drip was stopped and he is currently on normal home regimen. Weight trending down. Appreciate cardiac consultation- Continues on Coreg and Cardizem Continue with scheduled nebulizers and acapella Overall BGMs have been well controlled Heparin subcutaneous for DVT prophylaxis Case discussed with attending, Dr Wang Plan - 11/14/17: Continue cefepime and vancomycin for coverage of MRSA and Pseudomonas in sputum C/S - Day #3 of antibiotics. Continue Mucinex DM for cough with Tessalon Perles and Ricola. Continue with Neb Treatments. Unable to give steroids due to allergies. Hypokalemia resolved. Renal function continues to improve. Continue to encourage therapies for improvement in strength and functional abilities. Fast blood sugar improved and stable. Daytime sugars remain >200. Will restart home Metformin 500mg daily and continue to monitor blood sugars closely. SSI available. Blood pressure well controlled. Will continue to hold lisinopril and monitor pressures closely. Recheck BMP and Mg in am due to medications use. Recheck CBC in am secondary to bronchitis. <Jonathan Hinojosa - Last Filed: 11/21/17 12:41> Exam Vital signs: Temperature 95.4 F L 11/19/17 15:05 Pulse Rate 50 L 11/19/17 15:05 Respiratory Rate 18 11/19/17 15:05 Blood Pressure 121/62 11/19/17 15:05 Pulse Oximetry 93 11/19/17 15:05 Inpatient Medications: Discontinued Medications Generic Name Dose Route Start Last Admin Trade Name Freq PRN Reason Stop Dose Admin Acetaminophen 1,300 mg 11/10/17 09:47 11/15/17 09:26 Tylenol Arthritis PO 1,300 mg BID PRN Administration Pain Acetazolamide 500 mg 11/15/17 09:24 11/15/17 11:46 Diamox PO 11/15/17 09:25 500 mg O ONE Administration Albuterol/Ipratropium 3 ml 11/09/17 21:44 11/09/17 21:54 Duoneb AEROSOL 11/09/17 21:45 3 ml O ONE Administration Albuterol/Ipratropium 3 ml 11/10/17 15:00 11/19/17 14:48 Duoneb AEROSOL 3 ml RTQID RODRIGO Administration Albuterol/Ipratropium 3 ml 11/10/17 14:16 Duoneb AEROSOL RTQID PRN Azithromycin 500 mg 11/10/17 09:00 11/10/17 10:33 Zithromax PO Not Given DAILY RODRIGO Azithromycin 500 mg 11/10/17 21:00 11/11/17 21:08 Zithromax PO 500 mg HS RODRIGO Administration Benzonatate 100 mg 11/13/17 11:02 11/16/17 09:29 Tessalon Perles PO 100 mg TID PRN Administration Cough Bisacodyl 10 mg 11/13/17 11:03 Dulcolax RECTALLY DAILY PRN Constipation Budesonide 0.5 mg 11/09/17 21:44 11/09/17 21:54 Pulmicort Inhalation AEROSOL 11/09/17 21:45 0.5 mg O ONE Administration Budesonide 0.5 mg 11/10/17 19:00 11/19/17 06:34 Pulmicort Inhalation AEROSOL 0.5 mg RTBID RODRIGO Administration Bumetanide 1 mg 11/09/17 23:59 11/10/17 01:06 Bumex 1 Mg/4 Ml Inj. IVP 11/10/17 00:00 1 mg O ONE Administration Bumetanide 2 mg 11/10/17 21:00 Bumex 1 Mg Tab PO BID RODRIGO Bumetanide 2 mg 11/10/17 11:30 11/10/17 12:23 Bumex 1 Mg/4 Ml Inj. IVP 11/10/17 11:31 2 mg O ONE Administration Bumetanide 2 mg 11/11/17 17:30 11/15/17 09:23 Bumex 1 Mg Tab PO 2 mg BIDBS RODRIGO Administration Bumetanide 2 mg 11/15/17 15:03 11/18/17 09:43 Bumex 1 Mg Tab PO 2 mg TID RODRIGO Administration Bumetanide 2 mg 11/18/17 14:00 11/19/17 15:57 Bumex 1 Mg Tab PO 2 mg [id number] RODRIGO Administration Carbidopa/Levodopa 1 tab 11/10/17 09:00 11/10/17 10:17 Sinemet PO Not Given TID RODRIGO Carbidopa/Levodopa 1 tab 11/10/17 15:00 11/19/17 16:02 Sinemet PO 1 tab TID RODRIGO Administration Carvedilol 25 mg 11/10/17 17:30 11/19/17 08:51 Coreg PO 25 mg BIDWM RODRIGO Administration Clotrimazole 10 mg 11/16/17 18:30 11/19/17 15:58 Mycelex Carlos Manuel MM 10 mg 5XD RODRIGO Administration Dexamethasone 8 mg 11/09/17 22:15 11/09/17 22:32 Decadron IVP 11/09/17 22:16 8 mg O ONE Administration Dextrose 1 ml 11/10/17 10:51 D50%W IVP PRN PRN Hypoglycemia Digoxin 500 mcg 11/10/17 11:25 11/10/17 12:14 Lanoxin IVP 11/10/17 11:26 500 mcg O ONE Administration Digoxin 125 mcg 11/10/17 16:00 11/10/17 16:40 Lanoxin IVP 11/10/17 16:01 125 mcg O ONE Administration Diltiazem HCl 120 mg 11/10/17 10:00 11/10/17 10:40 Cardizem Cd 120 Mg PO 120 mg DAILY RODRIGO Administration Diltiazem HCl 30 mg 11/10/17 16:05 Cardizem Ir 30 Mg Tab PO Q6HR PRN FOR HR sustained >120 Diltiazem HCl 120 mg 11/13/17 10:30 11/19/17 08:52 Cardizem Cd 120 Mg PO 120 mg DAILY RODRIGO Administration Docusate Sodium 200 mg 11/10/17 09:00 11/10/17 10:17 Colace PO Not Given BID RODRIGO Docusate Sodium 200 mg 11/10/17 21:00 11/18/17 20:09 Colace PO 200 mg HS RODRIGO Administration Gabapentin 600 mg 11/10/17 22:00 11/10/17 01:09 Neurontin PO 600 mg DAILY RODRIGO Administration Gabapentin 600 mg 11/10/17 21:00 11/18/17 20:09 Neurontin PO 600 mg HS RODRIGO Administration Glucose 37.5 gm 11/10/17 10:51 Glutose 15 PO PRN PRN Hypoglycemia Guaifenesin 1,200 mg 11/10/17 21:00 11/13/17 08:09 Mucinex La PO 1,200 mg BID RODRIGO Administration Guaifenesin/Dextromethorphan 10 ml 11/10/17 22:53 11/14/17 17:48 Robitussin Dm PO 10 ml Q4H PRN Administration Cough /Congestion Guaifenesin/Dextromethorphan 1 tab 11/13/17 21:00 11/19/17 08:50 Mucinex Dm PO 1 tab BID RODRIGO Administration Heparin Sodium (Porcine) 5,000 units 11/11/17 17:00 11/19/17 08:50 Heparin Sq SQ 5,000 units Q8HR RODRIGO Administration Albumin Human 12.5 g/ IV 50 mls @ 50 mls/hr 11/09/17 23:59 11/10/17 02:07 Solution IV 11/10/17 00:58 Infused O ONE Infusion Bumetanide 25 mg/ IV Solution 100 mls @ 2 mls/hr 11/10/17 12:00 11/11/17 10: 30 IV Infused Q24H RODRIGO Infusion Ceftriaxone Sodium 1 g/ Sodium 100 mls @ 200 mls/hr 11/10/17 16:15 11/10/17 17:55 Chloride IV Infused Q24H RODRIGO Infusion Ceftriaxone Sodium 1 g/ Sodium 50 mls @ 200 mls/hr 11/11/17 09:00 11/13/17 07 :56 Chloride IV Not Given Q24HR RODRIGO Sodium Chloride 500 mls @ 10 mls/hr 11/10/17 21:39 11/12/17 02:02 Normal Saline IV Not Given .Q24H RODRIGO Cefepime HCl 1 gm/ Sodium 50 mls @ 100 mls/hr 11/12/17 09:45 11/19/17 09:52 Chloride IV 100 mls/hr Q12H RODRIGO Administration Vancomycin HCl 1,500 mg/ 500 mls @ 250 mls/hr 11/12/17 10:30 11/13/17 07:56 Sodium Chloride IV 11/12/17 12:29 Infused O ONE Infusion Vancomycin HCl 1,000 mg/ 250 mls @ 250 mls/hr 11/13/17 04:30 11/16/17 21:25 Sodium Chloride IV Not Given Q18H RODRIGO Vancomycin HCl 1,000 mg/ 250 mls @ 250 mls/hr 11/15/17 12:00 11/16/17 07:14 Sodium Chloride IV Infused Q18H RODRIGO Infusion Vancomycin HCl 1,000 mg/ 250 mls @ 250 mls/hr 11/17/17 09:00 11/17/17 11:16 Sodium Chloride IV Infused Q24H RODRIGO Infusion Vancomycin HCl 1,250 mg/ 250 mls @ 200 mls/hr 11/18/17 18:00 11/18/17 19:30 Sodium Chloride IV Infused Q36H RODRIGO Infusion Insulin Human Regular 2 - 8 unit 11/10/17 10:51 11/19/17 15:56 Novolin R SQ 5 unit SS PRN Administration Hyperglycemia Protocol Insulin Human Regular 12 unit 11/10/17 11:00 11/10/17 12:11 Novolin R SQ 11/10/17 11:01 12 unit O ONE Administration Insulin Human Regular 12 unit 11/10/17 16:15 11/10/17 16:40 Novolin R SQ 11/10/17 16:16 12 unit O ONE Administration Lisinopril 2.5 mg 11/16/17 09:15 11/16/17 10:01 Prinivil PO 2.5 mg DAILY RODRIGO Administration Lisinopril 5 mg 11/16/17 15:15 Prinivil PO DAILY RODRIGO Lisinopril 2.5 mg 11/17/17 09:00 11/19/17 08:52 Prinivil PO 2.5 mg DAILY RODRIGO Administration Magnesium Hydroxide 30 ml 11/13/17 11:03 Mom PO DAILY PRN Constipation Menthol 1 lozenge 11/13/17 11:41 11/14/17 15:24 Ricola Sf MM 1 lozenge PRN PRN Administration Cough Metformin HCl 500 mg 11/14/17 10:30 11/18/17 09:42 Glucophage PO 500 mg WB RODRIGO Administration Metformin HCl 500 mg 11/18/17 17:30 11/19/17 08:51 Glucophage PO 500 mg BIDWM RODRIGO Administration Multivitamins 1 tab 11/10/17 14:00 11/19/17 15:57 Total B + C PO 1 tab [id number] RODRIGO Administration Pantoprazole Sodium 20 mg 11/12/17 06:30 11/19/17 06:04 Protonix PO 20 mg ACB RODRIGO Administration Polyethylene Glycol 17 gm 11/13/17 11:03 Miralax PO DAILY PRN Constipation Potassium Chloride 20 meq 11/11/17 09:00 11/11/17 09:30 K-Dur 20 Meq Tablet PO Not Given DAILY RODRIGO Potassium Chloride 20 meq 11/10/17 12:00 11/11/17 09:36 K-Dur 20 Meq Tablet PO 20 meq TIDWM RODRIGO Administration Potassium Chloride 20 meq 11/11/17 17:30 11/19/17 08:51 K-Dur 20 Meq Tablet PO 20 meq BIDWM RODRIGO Administration Potassium Chloride 20 meq 11/13/17 12:30 11/13/17 12:18 K-Dur 20 Meq Tablet PO 11/13/17 12:31 20 meq O ONE Administration Ropinirole HCl 2 mg 11/10/17 09:00 03/10/18 10:33 Requip PO Not Given TID RODRIGO Ropinirole HCl 2 mg 11/10/17 15:00 11/19/17 15:59 Requip PO 2 mg TID RODRIGO Administration Silver Sulfadiazine 1 applic 11/11/17 09:00 11/19/17 08:52 Silvadene TOP 1 applic DAILY RODRIGO Administration Sodium Chloride 10 - 80 ml 11/09/17 21:40 11/19/17 09:53 Iv Flush IVF 10 ml PRN PRN Administration Flushing Sodium Chloride 500 ml 11/16/17 09:34 11/18/17 18:06 Normal Saline IV 500 ml PRN PRN Administration Sotalol HCl 20 mg 11/16/17 09:00 11/16/17 21:25 Betapace PO Not Given DAILY RODRIGO Sotalol HCl 20 mg 11/16/17 16:15 11/18/17 09:43 Betapace PO 20 mg DAILY RODRIGO Administration Tramadol HCl 50 mg 11/10/17 21:00 11/10/17 01:08 Ultram PO 50 mg HS RODRIGO Administration Tramadol HCl 50 mg 11/10/17 21:00 11/18/17 20:09 Ultram PO 50 mg HS RODRIGO Administration Vancomycin HCl 1 each 11/12/17 09:12 11/13/17 07:30 Pharmacy Consult - Vancomycin MC 11/12/17 09:13 1 each O ONE Administration Results 11/19/17 04:03 11/19/17 04:03 Assessment and Plan - Assessment and Plan (1) Acute on chronic systolic (congestive) heart failure Status: Acute (2) Paroxysmal atrial fibrillation Status: Chronic (3) Essential (primary) hypertension Status: Chronic (4) ICD (implantable cardioverter-defibrillator) in place Status: Chronic (5) Bronchitis Status: Acute (6) Cardiomyopathy Status: Chronic - Attestation Attestation Narrative: 11/21/17 12:41 Recommendation After examining the patient I agree with the above assessment. I am involved in the formulation of the patient's plan of care. Hospital Course Summary Disclaimer: The visit summary below is not to be considered part of the above Progress Note.
[2017-11-15] MEDS: TRAMADOL 50 MG TABLET PO SCH (20:40)
[2017-11-15] MEDS: DOCUSATE SODIUM 100 MG CAPSULE PO SCH (20:41)
[2017-11-15] MEDS: GABAPENTIN 600 MG TABLET PO SCH (20:41)
[2017-11-15] MEDS: SALINE FLUSH 10ml SYRINGE IVF PRN (21:46)
[2017-11-16] MEDS: HEPARIN SUB-Q 5,000units/0.5ml INJECTION SQ SCH ×3 (00:17→17:24)
[2017-11-16] MEDS: PANTOPRAZOLE 20 MG TABLET PO SCH (05:45)
[2017-11-16] MEDS: SALINE FLUSH 10ml SYRINGE IVF PRN ×3 (05:45→21:01)
[2017-11-16] MEDS: ALBUTEROL/IPRATROPIUM 2.5mg-0.5mg/3ml NEB AEROSOL SCH ×4 (06:35→19:20)
[2017-11-16] MEDS: BUDESONIDE INH.SOLN 0.5mg/2ml NEB AEROSOL SCH ×2 (06:35→19:20)
--- NOTE | 2017-11-16 08:58 | Progress Note ---
- Date 11/16/17 Subjective: Follow-up: COPD exacerbation. Acute on chronic heart failure. Sputum culture- MRSA + Pseudomonas, currently on cefepime and vancomycin. Patient is seen in bed this morning. He did not sleep well last night, but reports he is definitely feeling better. Breathing and cough are better. No current complaints other than his chronic foot pain related to arthritis. Objective Vital signs: Temperature 95.7 F L 11/16/17 08:17 Pulse Rate 47 L 11/16/17 08:17 Respiratory Rate 20 11/16/17 08:17 Blood Pressure 135/66 11/16/17 08:17 Pulse Oximetry 98 11/16/17 08:17 Rhythm: Second Degree AV Block Type I and 2:1 AV Block Height/Weight/BMI: Height 1.65 m Weight 64.9 kg Body Mass Index 24.7 - Constitutional Present: no acute distress, well nourished, well developed - Routine HEENT Exam Head: Present: normocephalic, atraumatic - Routine Respiratory Exam Present: CTA bilaterally. Absent: wheezes - Routine Cardiovascular Exam Present: no murmur, irregularly irregular - Routine Abdominal Exam Present: soft, non distended, non tender - Routine Extremities Exam Present: no edema, normal capillary refill - Routine Skin Exam Present: dry, warm - Routine Neurological Exam Present: alert, oriented X3 - Routine Lymphatic Exam Lymphatic: Absent: adenopathy - Routine Psychiatric Exam Present: normal affect, cooperative Results - Labs CBC & Chem 7: 11/15/17 04:27 11/16/17 09:25 Microbiology Results: Microbiology 11/10/17 01:25 Sputum, Expectorated Gram Stain - Final 11/10/17 01:25 Sputum, Expectorated Sputum Culture - Final Staphylococcus aureus, MRSA Pseudomonas aeruginosa Normal Respiratory Yue Assessment and Plan (1) Acute on chronic systolic (congestive) heart failure Current visit: No Status: Acute (2) Bronchitis Current visit: No Status: Acute Assessment and Plan: Impression Bronchitis/COPD exacerbation with fever at presentation +MRSA and + Pseudomonas Aeruginosa in Sputum C/S Hypernatremia (POA) - improved Acute on chronic non-ischemic systolic heart failure Severe cardiomyopathy - nonischemic Hx of ICD (implantable cardioverter-defibrillator) Not on anticoagulation chronically secondary to history of significant GI bleed Atrial fibrillation HTN COPD JEANNA on CPAP Type II diabetes Stage III CKD Acute kidney injury (POA) - resolved Restless Leg Syndrome Parkinson's disease Thrush (not POA) Plan Continue cefepime and vancomycin for coverage of MRSA and Pseudomonas in sputum C/S - Day #5 of antibiotics. Cardiology increased Bumex to TID yesterday for "gentle diuresis." Patient is on 1500 mL fluid restriction. No labs drawn today. BMP ordered now to follow renal function and electrolytes. Chest x-ray yesterday reported resolution of pulmonary vascular congestion. Encouraged ambulation today. Resume home lisinopril 2.5 mg - pressures are stable. Kathleen Thralejandra present - start Mycelex for treatment. Cardiology started Sotalol 20mg daily due to increased episodes of VTACH. Lisinopril restated by Hospitalist, but cardiology increased to 5mg -- will decrease back to 2.5mg daily. DVT Prophylaxis: SCD's Resuscitation Status: Full Code - Time spent with patient Time with patient PN: 25 minutes - Physician Narrative Physician: Frank Wang MD Narrative: Date: 11/16/17 Time: 1754 Have independently interviewed and examined pt. Chart reviewed. Case discussed with CM, patient's , and my PA. Care plan developed with my supervision; agree with above. Doing fair. Has been ambulating more with nursing-still with some weakness and instability. notes less confusion today. Breathing about the same-NOT liking acapella. Mouth dry-some soreness. Eating okay. Lungs: decreased, improving air movement. CV: regular AB: soft nt MSE: awake alert GEN: looks tired, weak, and unsteady. HEENT: white area on tongue Plan: Continue antibiotics and neb treatment. Change acapella to prn. Mycelex to help yeast in mouth. Continue with ambulation. Lisinopril restated by Hospitalist, but cardiology increased to 5mg -- will decrease back to 2.5mg daily. Sotalol started by cardiology to help heart rhythm - need no continue with cardiac tele. Possible discharge in next 2-3 days depending on cardiac status. Hospital Course Summary Disclaimer: The visit summary below is not to be considered part of the above Progress Note. Hospital Course: 11/10 Hospital admission -Admit -Pt reports "allergy" to steroids. He reports they make him "mean" -azithromycin and ceftriaxone -Dr. Hinojosa consulted -Bumex drip ordered -Resume Coreg -PRN diltiazem for HR >120 sustained -Dig 0.5mg IV now and then 0.25 in 6 hours times one -[id number] = -PPM/ICD in place -Exacerbation -Resp therapy -SSI -Hold home metformin -Bipap at night -change diltiazem to prn for hr/bp -Prophylaxis: PPI and SQ heparin 11/11 Continue current care 11/12 Discontinue Rocephin and Azithromycin. Start Cefepime and Vanco for better coverage of MRSA and Pseudomonas in sputum C/S Overall weight is trending down with diuretics. Bumex drip was stopped and he is currently on normal home regimen. Weight trending down. Appreciate cardiac consultation- Continues on Coreg and Cardizem Continue with scheduled nebulizers and acapella Overall BGMs have been well controlled Heparin subcutaneous for DVT prophylaxis Case discussed with attending, Dr Wang 11/13 Continue cefepime and vancomycin for coverage of MRSA and Pseudomonas in sputum C/S-day #2. Will change Mucinex to Mucinex DM to help cough - add prn Tessalon Perles and Ricola. Continue with Neb Treatments. Potassium decreased to 3.4 - will give 20mEq KCl today at noon. Creatinine decreased to 1.3. Consult PT/OT to help increase functional status. Blood sugars showing increase. Continue ISS. Hold metformin for down due to resolving acute heart failure. Possible restart home lisinopril soon - creatinine improving and BP showing elevation to 130 to 140 systolic. 11/14 Continue cefepime and vancomycin for coverage of MRSA and Pseudomonas in sputum C/S - Day #3 of antibiotics. Continue Mucinex DM for cough with Tessalon Perles and Ricola. Continue with Neb Treatments. Unable to give steroids due to allergies. Hypokalemia resolved. Renal function continues to improve. Fast blood sugar improved and stable. Daytime sugars remain >200. Will restart home Metformin 500mg daily and continue to monitor blood sugars closely. SSI available. Blood pressure well controlled. Will continue to hold lisinopril and monitor pressures closely. 11/15 Continue cefepime and vancomycin for coverage of MRSA and Pseudomonas in sputum C/S - Day #4 of antibiotics. Continue DuoNeb and Pulmicort breathing txs and acapella. On heparin for VTE prophylaxis. BS's acceptable. Diamox 500mg po x1 today as CO2 elevated. Stressed the importance of increasing ambulation. 11/16 Continue cefepime and vancomycin for coverage of MRSA and Pseudomonas in sputum C/S - Day #5 of antibiotics. Cardiology increased Bumex to TID yesterday for "gentle diuresis." Patient is on 1500 mL fluid restriction. Chest x-ray yesterday reported resolution of pulmonary vascular congestion. Encouraged ambulation today. Resume home lisinopril 2.5 mg - pressures are stable. Cardiology started Sotalol 20mg daily due to increased episodes of VTACH.
[2017-11-16] MEDS ORDERED: SOTALOL 80 MG TABLET PO SCH (09:00)
[2017-11-16] MEDS ORDERED: LISINOPRIL 2.5 MG TABLET PO SCH (09:15)
[2017-11-16] MEDS: BENZONATATE 100 MG CAPSULE PO PRN (09:29)
[2017-11-16] MEDS: ROPINIROLE 2 MG TABLET PO SCH ×3 (09:30→21:02)
[2017-11-16] MEDS: CARVEDILOL 25 MG TABLET PO SCH ×2 (09:30→17:24)
[2017-11-16] MEDS: VITAMIN B COMPLEX + C TABLET PO SCH ×2 (09:30→15:07)
[2017-11-16] MEDS: BUMETANIDE 1 MG TABLET PO SCH ×3 (09:30→21:02)
[2017-11-16] MEDS: METFORMIN 500 MG TABLET PO SCH (09:30)
[2017-11-16] MEDS: SILVER SULFADIAZINE 1% CREAM 25 GM TOP SCH (09:31)
[2017-11-16] MEDS: CEFEPIME 1 GM in NS 50 ML IV SCH ×2 (09:32→21:01)
[2017-11-16] MEDS: NS FLUSH BAG 500ml IV PRN (09:38)
[2017-11-16] MEDS: GUAIFENESIN/D-METHORPHAN 600mg/30mg TABLET PO SCH ×2 (10:02→21:02)
[2017-11-16] MEDS: INSULIN REGULAR, HUMAN 100 UNIT/ML INJECTION SQ PRN ×2 (13:06→14:54)
--- NOTE | 2017-11-16 13:09 | Pharmacy Consult-Antibiotics ---
Pharmacy Consult-Vancomycin - Laboratory Information WBC 9.5 T/MM3 (4.5-11.0) 11/15/17 04:27 BUN 32.0 MG/DL (9-20) H 11/16/17 09:25 Creatinine 1.4 mg/dL (0.8-1.5) D 11/16/17 09:25 Vancomycin Trough 21.92 ug/mL (15-20) H* 11/15/17 08:26 - Consult Information VANCOMYCIN CONSULT: FF is a 77 yo male admitted for acute chronic systolic (congestive) heart failure and acute bronchitis. Patient also has diagnoses of A Fib, COPD, DM, RLS. HTN, Parkinson's disease, etc. Vancomycin Trough = 21.92 mcg/ml on 11/15. Renal function: S Cr = 1.2 mg/dL and Calculated Cr Cl = 45 mL/min WBC's = 9.5 T/mm3 I changed the Vancomycin to 1,500 mg iv every 24 hours @ 0900 daily. I also ordered a Vancomycin trough with serum creatinine to be drawn on 11/20/18 (next Sunday). The pharmacy will continue to review the renal function and Vancomycin levels, and will adjust the medications accordingly. Thank you for the Vancomycin Dosing Protocol, Jakub Torres, Pharmacist.
[2017-11-16] MEDS ORDERED: LISINOPRIL 5 MG TABLET PO SCH (15:15)
--- NOTE | 2017-11-16 15:45 | Cardiology Progress Note ---
<Rhonda Adames - Last Filed: 11/16/17 19:06> Subjective Principal diagnosis: CHF exacerbation, URI, COPD exacerbation Interval history: Almas is seen in follow up for CHF exacerbation, He is seen in his room on Medical, his is at the bedside. He denies chest pain or pressure. Exam Vital signs: Temperature 96.2 F L 11/16/17 15:05 Pulse Rate 69 11/16/17 15:05 Respiratory Rate 20 11/16/17 15:05 Blood Pressure 117/49 11/16/17 15:05 Pulse Oximetry 97 11/16/17 15:05 Inpatient Medications: Generic Name Dose Route Start Last Admin Trade Name Freq PRN Reason Stop Dose Admin Acetaminophen 1,300 mg 11/10/17 09:47 11/15/17 09:26 Tylenol Arthritis PO 1,300 mg BID PRN Administration Pain Albuterol/Ipratropium 3 ml 11/10/17 15:00 11/16/17 10:30 Duoneb AEROSOL 3 ml RTQID RODRIGO Administration Albuterol/Ipratropium 3 ml 11/10/17 14:16 Duoneb AEROSOL RTQID PRN Benzonatate 100 mg 11/13/17 11:02 11/16/17 09:29 Tessalon Perles PO 100 mg TID PRN Administration Cough Bisacodyl 10 mg 11/13/17 11:03 Dulcolax RECTALLY DAILY PRN Constipation Budesonide 0.5 mg 11/10/17 19:00 11/16/17 06:35 Pulmicort Inhalation AEROSOL 0.5 mg RTBID RODRIGO Administration Bumetanide 2 mg 11/15/17 15:03 11/16/17 15:08 Bumex 1 Mg Tab PO 2 mg TID RODRIGO Administration Carbidopa/Levodopa 1 tab 11/10/17 15:00 11/16/17 15:08 Sinemet PO 1 tab TID RODRIGO Administration Carvedilol 25 mg 11/10/17 17:30 11/16/17 09:30 Coreg PO 25 mg BIDWM RODRIGO Administration Dextrose 1 ml 11/10/17 10:51 D50%W IVP PRN PRN Hypoglycemia Diltiazem HCl 30 mg 11/10/17 16:05 Cardizem Ir 30 Mg Tab PO Q6HR PRN FOR HR sustained >120 Diltiazem HCl 120 mg 11/13/17 10:30 11/16/17 09:30 Cardizem Cd 120 Mg PO 120 mg DAILY RODRIGO Administration Docusate Sodium 200 mg 11/10/17 21:00 11/15/17 20:41 Colace PO 200 mg HS RODRIGO Administration Gabapentin 600 mg 11/10/17 21:00 11/15/17 20:41 Neurontin PO 600 mg HS RODRIGO Administration Glucose 37.5 gm 11/10/17 10:51 Glutose 15 PO PRN PRN Hypoglycemia Guaifenesin/Dextromethorphan 10 ml 11/10/17 22:53 11/14/17 17:48 Robitussin Dm PO 10 ml Q4H PRN Administration Cough /Congestion Guaifenesin/Dextromethorphan 1 tab 11/13/17 21:00 11/16/17 10:02 Mucinex Dm PO 1 tab BID RODRIGO Administration Heparin Sodium (Porcine) 5,000 units 11/11/17 17:00 11/16/17 09:29 Heparin Sq SQ 5,000 units Q8HR RODRIGO Administration Cefepime HCl 1 gm/ Sodium 50 mls @ 100 mls/hr 11/12/17 09:45 11/16/17 10:30 Chloride IV Infused Q12H [facility] Infusion Vancomycin HCl 1,000 mg/ 250 mls @ 250 mls/hr 11/17/17 09:00 Sodium Chloride IV Q24H [facility] Insulin Human Regular 2 - 8 unit 11/10/17 10:51 11/16/17 14:54 Novolin R SQ 3 unit SS PRN Administration Hyperglycemia Protocol Lisinopril 5 mg 11/16/17 15:15 Prinivil PO DAILY RODRIGO Magnesium Hydroxide 30 ml 11/13/17 11:03 Mom PO DAILY PRN Constipation Menthol 1 lozenge 11/13/17 11:41 11/14/17 15:24 Ricola Sf MM 1 lozenge PRN PRN Administration Cough Metformin HCl 500 mg 11/14/17 10:30 11/16/17 09:30 Glucophage PO 500 mg WB RODRIGO Administration Multivitamins 1 tab 11/10/17 14:00 11/16/17 15:07 Total B + C PO 1 tab [id number] RODRIGO Administration Pantoprazole Sodium 20 mg 11/12/17 06:30 11/16/17 05:45 Protonix PO 20 mg ACB RDORIGO Administration Polyethylene Glycol 17 gm 11/13/17 11:03 Miralax PO DAILY PRN Constipation Potassium Chloride 20 meq 11/11/17 17:30 11/16/17 09:29 K-Dur 20 Meq Tablet PO 20 meq BIDWM RODRIGO Administration Ropinirole HCl 2 mg 11/10/17 15:00 11/16/17 15:07 Requip PO 2 mg TID RODRIGO Administration Silver Sulfadiazine 1 applic 11/11/17 09:00 11/16/17 09:31 Silvadene TOP 1 applic DAILY RODRIGO Administration Sodium Chloride 10 - 80 ml 11/09/17 21:40 11/16/17 09:33 Iv Flush IVF 10 ml PRN PRN Administration Flushing Sodium Chloride 500 ml 11/16/17 09:34 11/16/17 09:38 Normal Saline IV 500 ml PRN PRN Administration Sotalol HCl 20 mg 11/16/17 09:00 Betapace PO DAILY RODRIGO Tramadol HCl 50 mg 11/10/17 21:00 11/15/17 20:40 Ultram PO 50 mg HS RODRIGO Administration Discontinued Medications Generic Name Dose Route Start Last Admin Trade Name Freq PRN Reason Stop Dose Admin Acetazolamide 500 mg 11/15/17 09:24 11/15/17 11:46 Diamox PO 11/15/17 09:25 500 mg O ONE Administration Albuterol/Ipratropium 3 ml 11/09/17 21:44 11/09/17 21:54 Duoneb AEROSOL 11/09/17 21:45 3 ml O ONE Administration Azithromycin 500 mg 11/10/17 09:00 11/10/17 10:33 Zithromax PO Not Given DAILY RODRIGO Azithromycin 500 mg 11/10/17 21:00 11/11/17 21:08 Zithromax PO 500 mg HS RODRIGO Administration Budesonide 0.5 mg 11/09/17 21:44 11/09/17 21:54 Pulmicort Inhalation AEROSOL 11/09/17 21:45 0.5 mg O ONE Administration Bumetanide 1 mg 11/09/17 23:59 11/10/17 01:06 Bumex 1 Mg/4 Ml Inj. IVP 11/10/17 00:00 1 mg O ONE Administration Bumetanide 2 mg 11/10/17 21:00 Bumex 1 Mg Tab PO BID RODRIGO Bumetanide 2 mg 11/10/17 11:30 11/10/17 12:23 Bumex 1 Mg/4 Ml Inj. IVP 11/10/17 11:31 2 mg O ONE Administration Bumetanide 2 mg 11/11/17 17:30 11/15/17 09:23 Bumex 1 Mg Tab PO 2 mg BIDBS RODRIGO Administration Carbidopa/Levodopa 1 tab 11/10/17 09:00 11/10/17 10:17 Sinemet PO Not Given TID RODRIGO Dexamethasone 8 mg 11/09/17 22:15 11/09/17 22:32 Decadron IVP 11/09/17 22:16 8 mg O ONE Administration Digoxin 500 mcg 11/10/17 11:25 11/10/17 12:14 Lanoxin IVP 11/10/17 11:26 500 mcg O ONE Administration Digoxin 125 mcg 11/10/17 16:00 11/10/17 16:40 Lanoxin IVP 11/10/17 16:01 125 mcg O ONE Administration Diltiazem HCl 120 mg 11/10/17 10:00 11/10/17 10:40 Cardizem Cd 120 Mg PO 120 mg DAILY RODRIGO Administration Docusate Sodium 200 mg 11/10/17 09:00 11/10/17 10:17 Colace PO Not Given BID RODRIGO Gabapentin 600 mg 11/10/17 22:00 11/10/17 01:09 Neurontin PO 600 mg DAILY RODRIGO Administration Guaifenesin 1,200 mg 11/10/17 21:00 11/13/17 08:09 Mucinex La PO 1,200 mg BID RODRIGO Administration Albumin Human 12.5 g/ IV 50 mls @ 50 mls/hr 11/09/17 23:59 11/10/17 02:07 Solution IV 11/10/17 00:58 Infused O ONE Infusion Bumetanide 25 mg/ IV Solution 100 mls @ 2 mls/hr 11/10/17 12:00 11/11/17 10: 30 IV Infused Q24H [facility] Infusion Ceftriaxone Sodium 1 g/ Sodium 100 mls @ 200 mls/hr 11/10/17 16:15 11/10/17 17:55 Chloride IV Infused Q24H [facility] Infusion Ceftriaxone Sodium 1 g/ Sodium 50 mls @ 200 mls/hr 11/11/17 09:00 11/13/17 07 :56 Chloride IV Not Given Q24HR RODRIGO Sodium Chloride 500 mls @ 10 mls/hr 11/10/17 21:39 11/12/17 02:02 Normal Saline IV Not Given .Q24H RODRIGO Vancomycin HCl 1,500 mg/ 500 mls @ 250 mls/hr 11/12/17 10:30 11/13/17 07:56 Sodium Chloride IV 11/12/17 12:29 Infused O ONE Infusion Vancomycin HCl 1,000 mg/ 250 mls @ 250 mls/hr 11/13/17 04:30 11/14/17 18:51 Sodium Chloride IV Infused Q18H [facility] Infusion Vancomycin HCl 1,000 mg/ 250 mls @ 250 mls/hr 11/15/17 12:00 11/16/17 07:14 Sodium Chloride IV Infused Q18H [facility] Infusion Insulin Human Regular 12 unit 11/10/17 11:00 11/10/17 12:11 Novolin R SQ 11/10/17 11:01 12 unit O ONE Administration Insulin Human Regular 12 unit 11/10/17 16:15 11/10/17 16:40 Novolin R SQ 11/10/17 16:16 12 unit O ONE Administration Lisinopril 2.5 mg 11/16/17 09:15 11/16/17 10:01 Prinivil PO 2.5 mg DAILY RODRIGO Administration Potassium Chloride 20 meq 11/11/17 09:00 11/11/17 09:30 K-Dur 20 Meq Tablet PO Not Given DAILY RODRIGO Potassium Chloride 20 meq 11/10/17 12:00 11/11/17 09:36 K-Dur 20 Meq Tablet PO 20 meq TIDWM RODRIGO Administration Potassium Chloride 20 meq 11/13/17 12:30 11/13/17 12:18 K-Dur 20 Meq Tablet PO 11/13/17 12:31 20 meq O ONE Administration Ropinirole HCl 2 mg 11/10/17 09:00 11/10/17 10:33 Requip PO Not Given TID RODRIGO Tramadol HCl 50 mg 11/10/17 21:00 11/10/17 01:08 Ultram PO 50 mg HS RODRIGO Administration Vancomycin HCl 1 each 11/12/17 09:12 11/13/17 07:30 Pharmacy Consult - Vancomycin MC 11/12/17 09:13 1 each O ONE Administration - Constitutional no acute distress, well nourished, cooperative - Routine HEENT Exam Head: Present: normocephalic ENT: Present: mucous membranes moist - Routine Neck Exam Absent: JVD, carotid bruit - Routine Chest/Breast/Axilla Exam Chest wall: Present: pacemaker. Absent: tenderness - Routine Respiratory Exam Present: decreased breath sounds. Absent: CTA bilaterally - Routine Cardiovascular Exam Present: no murmur, irregular rhythm - Routine Abdominal Exam Present: soft - Routine Extremities Exam Present: edema - Routine Skin Exam Present: intact, dry, warm - Routine Neurological Exam Present: alert, oriented X3 - Routine Psychiatric Exam Present: normal affect, normal thought process - Additional findings Additional findings: Acetaminophen (Tylenol Arthritis) 1,300 mg PO BID PRN PRN Reason: Pain Last Admin: 11/15/17 09:26 Dose: 1,300 mg Albuterol/Ipratropium (Duoneb) 3 ml AEROSOL RTQID [facility] Last Admin: 11/16/17 10:30 Dose: 3 ml Albuterol/Ipratropium (Duoneb) 3 ml AEROSOL RTQID PRN Benzonatate (Tessalon Perles) 100 mg PO TID PRN PRN Reason: Cough Last Admin: 11/16/17 09:29 Dose: 100 mg Bisacodyl (Dulcolax) 10 mg RECTALLY DAILY PRN PRN Reason: Constipation Budesonide (Pulmicort Inhalation) 0.5 mg AEROSOL RTBID [facility] Last Admin: 11/16/17 06:35 Dose: 0.5 mg Bumetanide (Bumex 1 Mg Tab) 2 mg PO TID [facility] Last Admin: 11/16/17 15:08 Dose: 2 mg Carbidopa/Levodopa (Sinemet) 1 tab PO TID [facility] Last Admin: 11/16/17 15:08 Dose: 1 tab Carvedilol (Coreg) 25 mg PO BIDWM [facility] Last Admin: 11/16/17 09:30 Dose: 25 mg Dextrose (D50%W) 1 ml IVP PRN PRN PRN Reason: Hypoglycemia Diltiazem HCl (Cardizem Ir 30 Mg Tab) 30 mg PO Q6HR PRN PRN Reason: FOR HR sustained >120 Diltiazem HCl (Cardizem Cd 120 Mg) 120 mg PO DAILY [facility] Last Admin: 11/16/17 09:30 Dose: 120 mg Docusate Sodium (Colace) 200 mg PO HS [facility] Last Admin: 11/15/17 20:41 Dose: 200 mg Gabapentin (Neurontin) 600 mg PO HS [facility] Last Admin: 11/15/17 20:41 Dose: 600 mg Glucose (Glutose 15) 37.5 gm PO PRN PRN PRN Reason: Hypoglycemia Guaifenesin/Dextromethorphan (Robitussin Dm) 10 ml PO Q4H PRN PRN Reason: Cough /Congestion Last Admin: 11/14/17 17:48 Dose: 10 ml Guaifenesin/Dextromethorphan (Mucinex Dm) 1 tab PO BID [facility] Last Admin: 11/16/17 10:02 Dose: 1 tab Heparin Sodium (Porcine) (Heparin Sq) 5,000 units SQ Q8HR [facility] Last Admin: 11/16/17 09:29 Dose: 5,000 units Cefepime HCl 1 gm/ Sodium (Chloride) 50 mls @ 100 mls/hr IV Q12H [facility] Last Infusion: 11/16/17 10:30 Dose: Infused Vancomycin HCl 1,000 mg/ (Sodium Chloride) 250 mls @ 250 mls/hr IV Q24H [facility] Insulin Human Regular (Novolin R) 2 - 8 unit SQ SS PRN; Protocol PRN Reason: Hyperglycemia Last Admin: 11/16/17 14:54 Dose: 3 unit Lisinopril (Prinivil) 5 mg PO DAILY [facility] Magnesium Hydroxide (Mom) 30 ml PO DAILY PRN PRN Reason: Constipation Menthol (Ricola Sf) 1 lozenge MM PRN PRN PRN Reason: Cough Last Admin: 11/14/17 15:24 Dose: 1 lozenge Metformin HCl (Glucophage) 500 mg PO WB [facility] Last Admin: 11/16/17 09:30 Dose: 500 mg Multivitamins (Total B + C) 1 tab PO [id number] [facility] Last Admin: 11/16/17 15:07 Dose: 1 tab Pantoprazole Sodium (Protonix) 20 mg PO ACB [facility] Last Admin: 11/16/17 05:45 Dose: 20 mg Polyethylene Glycol (Miralax) 17 gm PO DAILY PRN PRN Reason: Constipation Potassium Chloride (K-Dur 20 Meq Tablet) 20 meq PO BIDWM [facility] Last Admin: 11/16/17 09:29 Dose: 20 meq Ropinirole HCl (Requip) 2 mg PO TID [facility] Last Admin: 11/16/17 15:07 Dose: 2 mg Silver Sulfadiazine (Silvadene) 1 applic TOP DAILY [facility] Last Admin: 11/16/17 09:31 Dose: 1 applic Sodium Chloride (Iv Flush) 10 - 80 ml IVF PRN PRN PRN Reason: Flushing Last Admin: 11/16/17 09:33 Dose: 10 ml Sodium Chloride (Normal Saline) 500 ml IV PRN PRN Last Admin: 11/16/17 09:38 Dose: 500 ml Sotalol HCl (Betapace) 20 mg PO DAILY [facility] Tramadol HCl (Ultram) 50 mg PO HS [facility] Last Admin: 11/15/17 20:40 Dose: 50 mg Results 11/15/17 04:27 11/16/17 09:25 Comprehensive Metabolic Panel 11/16/17 Range/Units 09:25 Sodium 143 (134-144) MEQ/L Potassium 4.2 (3.6-5) MEQ/L Chloride 98 (98-107) MEQ/L Carbon Dioxide 34 H (22-30) MEQ/L BUN 32.0 H (9-20) MG/DL Creatinine 1.4 D (0.8-1.5) mg/dL Glucose 86 (75-110) MG/DL Calcium 8.9 (8.4-10.2) MG/DL Intake and Output 11/16/17 11/16/17 11/16/17 06:59 14:59 22:59 Intake Total 100 / 100 910 / 910 Output Total 200 / 200 Balance 100 / 100 710 / 710 Intake: IV 300 / 300 Cefepime 1 gm In Ns 50 ml @ 100 50 / 50 mls/hr IV Q12H [facility] Rx#: [id number] Vancomycin 1,000 mg In NS 250ml 250 / 250 250 ml @ 250 mls/hr IV Q18H [facility] Rx#:[id number] Oral 100 / 100 610 / 610 Output: Urine 200 / 200 Other: Urine Appearance Clear Urine Color Bright Yellow Urine Odor Normal Stool Color Brown Stool Consistency Soft Size of Bowel Movement Moderate # Voids 1 2 # Incontinent Voids 1 Assessment and Plan - Assessment and Plan (1) Bronchitis Status: Acute (2) Acute on chronic systolic (congestive) heart failure Status: Acute (3) Paroxysmal atrial fibrillation Status: Chronic (4) Essential (primary) hypertension Status: Chronic (5) ICD (implantable cardioverter-defibrillator) in place Status: Chronic (6) Cardiomyopathy Status: Chronic - Assessment and Plan 11/10/17: Rate up to 160's in afib on tele this AM. IV dig .5mg IVP now, .25mg IVP in 4 hours. Start Coreg 25mg bid this evening, hold sbp <100. Pt got dose of diltiazem 180 this am. Not a full anticoagulation candidate due to personal hx of significant bleed. Bumex 2mg IVP now, then 0.5mg/hr Bumex gtt. Potassium 3.6 today, replace 20meq TID, follow renal function and lytes. Agree with fluid restriction and low Na diet. COPD, URI, DM managed per attending. 11/11/17: down 1kg, I&O -1800 since admit. Creatinine and lytes stable today. CxR today mild improvement of central venous congestion when compared to . DC bumex drip, resume home dosing of bumex to 2mg bid (dose increase just this week from Ashish OV). K 3.6 today, replace 20meq bid, follow labs. Rate well controlled on coreg 25mg bid, IV dig yesterday and short acting diltiazem 30mg q6 prn rate >120 (per attending order). Continue current AFib rate meds, consider changing back to home cardizem 180mg daily as bp allows. URI, COPD, DM2 management per attending, pt reporting improved cough with nebulizing tx's. 11/12/17 +MRSA and + Pseudomonas Aeruginosa in Sputum C/S - BNP in am 11/13/17 AFib: Resume home Cardizem 120mg po Daily for rate control - Is not a candidate for termination clerk coagulation due to history of GI bleeding on Pradaxa X2 BNP [id number] today, [place] [id number] 11/14/17 Stable from Cardiac standpoint for discharge. CHF is at patient's baseline 11/15/17 1500mL fluid restriction please - Increase Bumex to TID for now for gentle diuresis - Monitor renal and electrolytes 11/16/17 Increased frequency of V Tach on tele - Start Sotalol 20mg daily - Increase Lisinopril for better BP control Hospital Course Summary Disclaimer: The visit summary below is not to be considered part of the above Progress Note. Hospital Course: 11/10 hospital admission -Admit -Pt reports "allergy" to steroids. He reports they make him "mean" -azithromycin and ceftriaxone -Dr. Hinojosa consulted -Bumex drip ordered -Resume coreg -PRN diltiazem for HR >120 sustained -Dig 0.5mg IV now and then 0.25 in 6 hours times one -[id number] = -PPM/ICD in place -Exacerbation -Resp therapy -SSI -Hold home metformin -Bipap at night -change diltiazem to prn for hr/bp -Prophylaxis: PPI and SQ heparin 11/11 Continue current care 11/12 Discontinue Rocephin and Azithromycin. Start Cefepime and Vanco for better coverage of MRSA and Pseudomonas in sputum C/S Overall weight is trending down with diuretics. Bumex drip was stopped and he is currently on normal home regimen. Weight trending down. Appreciate cardiac consultation- Continues on Coreg and Cardizem Continue with scheduled nebulizers and acapella Overall BGMs have been well controlled Heparin subcutaneous for DVT prophylaxis Case discussed with attending, Dr Wang 11/13 Continue cefepime and vancomycin for coverage of MRSA and Pseudomonas in sputum C/S-day #2. Will change Mucinex to Mucinex DM to help cough - add prn Tessalon Perles and Ricola. Continue with Neb Treatments. Potassium decreased to 3.4 - will give 20mEq KCl today at noon. Creatinine decreased to 1.3. Consult PT/OT to help increase functional status. Blood sugars showing increase. Continue ISS. Hold metformin for down due to resolving acute heart failure. Possible restart home lisinopril soon - creatinine improving and BP showing elevation to 130 to 140 systolic. 11/14 Continue cefepime and vancomycin for coverage of MRSA and Pseudomonas in sputum C/S - Day #3 of antibiotics. Continue Mucinex DM for cough with Tessalon Perles and Ricola. Continue with Neb Treatments. Unable to give steroids due to allergies. Hypokalemia resolved. Renal function continues to improve. Fast blood sugar improved and stable. Daytime sugars remain >200. Will restart home Metformin 500mg daily and continue to monitor blood sugars closely. SSI available. Blood pressure well controlled. Will continue to hold lisinopril and monitor pressures closely. 11/15 Continue cefepime and vancomycin for coverage of MRSA and Pseudomonas in sputum C/S - Day #4 of antibiotics. Continue DuoNeb and Pulmicort breathing txs and acapella. On heparin for VTE prophylaxis. BS's acceptable. Diamox 500mg po x1 today as CO2 elevated. Stressed the importance of increasing ambulation. 11/16 Continue cefepime and vancomycin for coverage of MRSA and Pseudomonas in sputum C/S - Day #5 of antibiotics. Cardiology increased Bumex to TID yesterday for "gentle diuresis." Patient is on 1500 mL fluid restriction. No labs drawn today. BMP ordered now to follow renal function and electrolytes. Chest x-ray yesterday reported resolution of pulmonary vascular congestion. Encouraged ambulation today. Resume home lisinopril 2.5 mg - pressures are stable. <Jonathan Hinojosa - Last Filed: 11/21/17 12:45> Exam Vital signs: Temperature 95.4 F L 11/19/17 15:05 Pulse Rate 50 L 11/19/17 15:05 Respiratory Rate 18 11/19/17 15:05 Blood Pressure 121/62 11/19/17 15:05 Pulse Oximetry 93 11/19/17 15:05 Inpatient Medications: Discontinued Medications Generic Name Dose Route Start Last Admin Trade Name Freq PRN Reason Stop Dose Admin Acetaminophen 1,300 mg 11/10/17 09:47 11/15/17 09:26 Tylenol Arthritis PO 1,300 mg BID PRN Administration Pain Acetazolamide 500 mg 11/15/17 09:24 11/15/17 11:46 Diamox PO 11/15/17 09:25 500 mg O ONE Administration Albuterol/Ipratropium 3 ml 11/09/17 21:44 11/09/17 21:54 Duoneb AEROSOL 11/09/17 21:45 3 ml O ONE Administration Albuterol/Ipratropium 3 ml 11/10/17 15:00 11/19/17 14:48 Duoneb AEROSOL 3 ml RTQID RODRIGO Administration Albuterol/Ipratropium 3 ml 11/10/17 14:16 Duoneb AEROSOL RTQID PRN Azithromycin 500 mg 11/10/17 09:00 11/10/17 10:33 Zithromax PO Not Given DAILY RODRIGO Azithromycin 500 mg 11/10/17 21:00 11/11/17 21:08 Zithromax PO 500 mg HS RODRIGO Administration Benzonatate 100 mg 11/13/17 11:02 11/16/17 09:29 Tessalon Perles PO 100 mg TID PRN Administration Cough Bisacodyl 10 mg 11/13/17 11:03 Dulcolax RECTALLY DAILY PRN Constipation Budesonide 0.5 mg 11/09/17 21:44 11/09/17 21:54 Pulmicort Inhalation AEROSOL 11/09/17 21:45 0.5 mg O ONE Administration Budesonide 0.5 mg 11/10/17 19:00 11/19/17 06:34 Pulmicort Inhalation AEROSOL 0.5 mg RTBID [facility]O Administration Bumetanide 1 mg 11/09/17 23:59 11/10/17 01:06 Bumex 1 Mg/4 Ml Inj. IVP 11/10/17 00:00 1 mg O ONE Administration Bumetanide 2 mg 11/10/17 21:00 Bumex 1 Mg Tab PO BID RODRIGO Bumetanide 2 mg 11/10/17 11:30 11/10/17 12:23 Bumex 1 Mg/4 Ml Inj. IVP 11/10/17 11:31 2 mg O ONE Administration Bumetanide 2 mg 11/11/17 17:30 11/15/17 09:23 Bumex 1 Mg Tab PO 2 mg BIDBS RODRIGO Administration Bumetanide 2 mg 11/15/17 15:03 11/18/17 09:43 Bumex 1 Mg Tab PO 2 mg TID RODRGIO Administration Bumetanide 2 mg 11/18/17 14:00 11/19/17 15:57 Bumex 1 Mg Tab PO 2 mg [id number] RODRIGO Administration Carbidopa/Levodopa 1 tab 11/10/17 09:00 11/10/17 10:17 Sinemet PO Not Given TID RODRIGO Carbidopa/Levodopa 1 tab 11/10/17 15:00 11/19/17 16:02 Sinemet PO 1 tab TID RODRIGO Administration Carvedilol 25 mg 11/10/17 17:30 11/19/17 08:51 Coreg PO 25 mg BIDWM RODRIGO Administration Clotrimazole 10 mg 11/16/17 18:30 11/19/17 15:58 Mycelex Carlos Manuel MM 10 mg 5XD RODRIGO Administration Dexamethasone 8 mg 11/09/17 22:15 11/09/17 22:32 Decadron IVP 11/09/17 22:16 8 mg O ONE Administration Dextrose 1 ml 11/10/17 10:51 D50%W IVP PRN PRN Hypoglycemia Digoxin 500 mcg 11/10/17 11:25 11/10/17 12:14 Lanoxin IVP 11/10/17 11:26 500 mcg O ONE Administration Digoxin 125 mcg 11/10/17 16:00 11/10/17 16:40 Lanoxin IVP 11/10/17 16:01 125 mcg O ONE Administration Diltiazem HCl 120 mg 11/10/17 10:00 11/10/17 10:40 Cardizem Cd 120 Mg PO 120 mg DAILY RODRIGO Administration Diltiazem HCl 30 mg 11/10/17 16:05 Cardizem Ir 30 Mg Tab PO Q6HR PRN FOR HR sustained >120 Diltiazem HCl 120 mg 11/13/17 10:30 11/19/17 08:52 Cardizem Cd 120 Mg PO 120 mg DAILY [facility]IGO Administration Docusate Sodium 200 mg 11/10/17 09:00 11/10/17 10:17 Colace PO Not Given BID RODRIGO Docusate Sodium 200 mg 11/10/17 21:00 11/18/17 20:09 Colace PO 200 mg HS R[facility]IGO Administration Gabapentin 600 mg 11/10/17 22:00 11/10/17 01:09 Neurontin PO 600 mg DAILY [facility]IGO Administration Gabapentin 600 mg 11/10/17 21:00 11/18/17 20:09 Neurontin PO 600 mg HS [facility]RIGO Administration Glucose 37.5 gm 11/10/17 10:51 Glutose 15 PO PRN PRN Hypoglycemia Guaifenesin 1,200 mg 11/10/17 21:00 11/13/17 08:09 Mucinex La PO 1,200 mg BID [facility]IGO Administration Guaifenesin/Dextromethorphan 10 ml 11/10/17 22:53 11/14/17 17:48 Robitussin Dm PO 10 ml Q4H PRN Administration Cough /Congestion Guaifenesin/Dextromethorphan 1 tab 11/13/17 21:00 11/19/17 08:50 Mucinex Dm PO 1 tab BID [facility]RIGO Administration Heparin Sodium (Porcine) 5,000 units 11/11/17 17:00 11/19/17 08:50 Heparin Sq SQ 5,000 units Q8HR [facility]IGO Administration Albumin Human 12.5 g/ IV 50 mls @ 50 mls/hr 11/09/17 23:59 11/10/17 02:07 Solution IV 11/10/17 00:58 Infused O ONE Infusion Bumetanide 25 mg/ IV Solution 100 mls @ 2 mls/hr 11/10/17 12:00 11/11/17 10: 30 IV Infused Q24H [facility] Infusion Ceftriaxone Sodium 1 g/ Sodium 100 mls @ 200 mls/hr 11/10/17 16:15 11/10/17 17:55 Chloride IV Infused Q24H [facility] Infusion Ceftriaxone Sodium 1 g/ Sodium 50 mls @ 200 mls/hr 11/11/17 09:00 11/13/17 07 :56 Chloride IV Not Given Q24HR [facility] Sodium Chloride 500 mls @ 10 mls/hr 11/10/17 21:39 11/12/17 02:02 Normal Saline IV Not Given .Q24H [facility] Cefepime HCl 1 gm/ Sodium 50 mls @ 100 mls/hr 11/12/17 09:45 11/19/17 09:52 Chloride IV 100 mls/hr Q12H [facility] Administration Vancomycin HCl 1,500 mg/ 500 mls @ 250 mls/hr 11/12/17 10:30 11/13/17 07:56 Sodium Chloride IV 11/12/17 12:29 Infused O ONE Infusion Vancomycin HCl 1,000 mg/ 250 mls @ 250 mls/hr 11/13/17 04:30 11/16/17 21:25 Sodium Chloride IV Not Given Q18H RODRIGO Vancomycin HCl 1,000 mg/ 250 mls @ 250 mls/hr 11/15/17 12:00 11/16/17 07:14 Sodium Chloride IV Infused Q18H RODRIGO Infusion Vancomycin HCl 1,000 mg/ 250 mls @ 250 mls/hr 11/17/17 09:00 11/17/17 11:16 Sodium Chloride IV Infused Q24H RODRIGO Infusion Vancomycin HCl 1,250 mg/ 250 mls @ 200 mls/hr 11/18/17 18:00 11/18/17 19:30 Sodium Chloride IV Infused Q36H RODRIGO Infusion Insulin Human Regular 2 - 8 unit 11/10/17 10:51 11/19/17 15:56 Novolin R SQ 5 unit SS PRN Administration Hyperglycemia Protocol Insulin Human Regular 12 unit 11/10/17 11:00 11/10/17 12:11 Novolin R SQ 11/10/17 11:01 12 unit O ONE Administration Insulin Human Regular 12 unit 11/10/17 16:15 11/10/17 16:40 Novolin R SQ 11/10/17 16:16 12 unit O ONE Administration Lisinopril 2.5 mg 11/16/17 09:15 11/16/17 10:01 Prinivil PO 2.5 mg DAILY RODRIGO Administration Lisinopril 5 mg 11/16/17 15:15 Prinivil PO DAILY RODRIGO Lisinopril 2.5 mg 11/17/17 09:00 11/19/17 08:52 Prinivil PO 2.5 mg DAILY RODRIGO Administration Magnesium Hydroxide 30 ml 11/13/17 11:03 Mom PO DAILY PRN Constipation Menthol 1 lozenge 11/13/17 11:41 11/14/17 15:24 Ricola Sf MM 1 lozenge PRN PRN Administration Cough Metformin HCl 500 mg 11/14/17 10:30 11/18/17 09:42 Glucophage PO 500 mg WB RODRIGO Administration Metformin HCl 500 mg 11/18/17 17:30 11/19/17 08:51 Glucophage PO 500 mg BIDWM RODRIGO Administration Multivitamins 1 tab 11/10/17 14:00 11/19/17 15:57 Total B + C PO 1 tab [id number] RODRIGO Administration Pantoprazole Sodium 20 mg 11/12/17 06:30 11/19/17 06:04 Protonix PO 20 mg ACB RODRIGO Administration Polyethylene Glycol 17 gm 11/13/17 11:03 Miralax PO DAILY PRN Constipation Potassium Chloride 20 meq 11/11/17 09:00 11/11/17 09:30 K-Dur 20 Meq Tablet PO Not Given DAILY RODRIGO Potassium Chloride 20 meq 11/10/17 12:00 11/11/17 09:36 K-Dur 20 Meq Tablet PO 20 meq TIDWM RODRIGO Administration Potassium Chloride 20 meq 11/11/17 17:30 11/19/17 08:51 K-Dur 20 Meq Tablet PO 20 meq BIDWM RODRIGO Administration Potassium Chloride 20 meq 11/13/17 12:30 11/13/17 12:18 K-Dur 20 Meq Tablet PO 11/13/17 12:31 20 meq O ONE Administration Ropinirole HCl 2 mg 11/10/17 09:00 11/10/17 10:33 Requip PO Not Given TID RODRIGO Ropinirole HCl 2 mg 11/10/17 15:00 11/19/17 15:59 Requip PO 2 mg TID RODRIGO Administration Silver Sulfadiazine 1 applic 11/11/17 09:00 11/19/17 08:52 Silvadene TOP 1 applic DAILY RODRIGO Administration Sodium Chloride 10 - 80 ml 11/09/17 21:40 11/19/17 09:53 Iv Flush IVF 10 ml PRN PRN Administration Flushing Sodium Chloride 500 ml 11/16/17 09:34 11/18/17 18:06 Normal Saline IV 500 ml PRN PRN Administration Sotalol HCl 20 mg 11/16/17 09:00 11/16/17 21:25 Betapace PO Not Given DAILY RODRIGO Sotalol HCl 20 mg 11/16/17 16:15 11/18/17 09:43 Betapace PO 20 mg DAILY RODRIGO Administration Tramadol HCl 50 mg 11/10/17 21:00 11/10/17 01:08 Ultram PO 50 mg HS RODRIGO Administration Tramadol HCl 50 mg 11/10/17 21:00 11/18/17 20:09 Ultram PO 50 mg HS RODRIGO Administration Vancomycin HCl 1 each 11/12/17 09:12 11/13/17 07:30 Pharmacy Consult - Vancomycin MC 11/12/17 09:13 1 each O ONE Administration Results 11/19/17 04:03 11/19/17 04:03 Assessment and Plan - Assessment and Plan (1) Acute on chronic systolic (congestive) heart failure Status: Acute (2) Paroxysmal atrial fibrillation Status: Chronic (3) Essential (primary) hypertension Status: Chronic (4) ICD (implantable cardioverter-defibrillator) in place Status: Chronic (5) Bronchitis Status: Acute (6) Cardiomyopathy Status: Chronic - Attestation Attestation Narrative: 11/21/17 12:45 Recommendation After examining the patient I agree with the above assessment. I am involved in the formulation of the patient's plan of care. Hospital Course Summary Disclaimer: The visit summary below is not to be considered part of the above Progress Note.
[2017-11-16] MEDS: SOTALOL 80 MG TABLET PO SCH (17:22)
[2017-11-16] MEDS: TRAMADOL 50 MG TABLET PO SCH (21:02)
[2017-11-16] MEDS: GABAPENTIN 600 MG TABLET PO SCH (21:02)
[2017-11-16] MEDS: DOCUSATE SODIUM 100 MG CAPSULE PO SCH (21:02)
[2017-11-16] MEDS: CLOTRIMAZOLE 10 MG TROCHE MM SCH ×2 (21:08→21:09)
[2017-11-17] MEDS: HEPARIN SUB-Q 5,000units/0.5ml INJECTION SQ SCH ×3 (00:09→17:36)
[2017-11-17] MEDS: PANTOPRAZOLE 20 MG TABLET PO SCH (06:16)
[2017-11-17] MEDS: BUDESONIDE INH.SOLN 0.5mg/2ml NEB AEROSOL SCH ×2 (06:47→18:57)
[2017-11-17] MEDS: ALBUTEROL/IPRATROPIUM 2.5mg-0.5mg/3ml NEB AEROSOL SCH ×4 (06:47→18:57)
[2017-11-17] MEDS: METFORMIN 500 MG TABLET PO SCH (08:44)
[2017-11-17] MEDS: ROPINIROLE 2 MG TABLET PO SCH ×3 (08:44→20:40)
[2017-11-17] MEDS: GUAIFENESIN/D-METHORPHAN 600mg/30mg TABLET PO SCH ×2 (08:44→20:42)
[2017-11-17] MEDS: CARVEDILOL 25 MG TABLET PO SCH ×2 (08:45→17:36)
[2017-11-17] MEDS: CLOTRIMAZOLE 10 MG TROCHE MM SCH ×5 (08:45→20:40)
[2017-11-17] MEDS: SOTALOL 80 MG TABLET PO SCH (08:45)
[2017-11-17] MEDS: VITAMIN B COMPLEX + C TABLET PO SCH ×2 (08:47→15:23)
[2017-11-17] MEDS: LISINOPRIL 2.5 MG TABLET PO SCH (08:47)
[2017-11-17] MEDS: BUMETANIDE 1 MG TABLET PO SCH ×3 (08:47→20:45)
[2017-11-17] MEDS: SILVER SULFADIAZINE 1% CREAM 25 GM TOP SCH (09:35)
[2017-11-17] MEDS: INSULIN REGULAR, HUMAN 100 UNIT/ML INJECTION SQ PRN ×2 (10:48→15:45)
[2017-11-17] MEDS: CEFEPIME 1 GM in NS 50 ML IV SCH ×2 (11:16→20:45)
--- NOTE | 2017-11-17 13:45 | Progress Note ---
- Date 11/17/17 Subjective: Almas feels much better, though he states his breathing is not quite back to normal. He is still occasionally short of breath. He also has a frequent nonproductive cough, and had to stop talking a couple of times in order to cough. The only pain he complains of is the pain in his feet, which is from arthritis. He denies any abdominal pain or nausea or vomiting and has been eating well. He last had a bowel movement yesterday. He has been working on a homemade handle to attach to his bed at home that he can grab and help him sit up. Objective Vital signs: Temperature 95.9 F L 11/17/17 07:17 Pulse Rate 90 11/17/17 08:00 Respiratory Rate 20 11/17/17 10:43 Blood Pressure 121/58 11/17/17 07:17 Pulse Oximetry 98 11/17/17 10:43 Rhythm: Atrial Fibrillation with Normal Ventricular Rate Height/Weight/BMI: Height 1.65 m Weight 65.5 kg Body Mass Index 24.7 - Constitutional Present: no acute distress, well nourished, well developed - Routine HEENT Exam Head: Present: normocephalic Eye: Present: PERRL. Absent: conjunctival icterus, scleral injection ENT: Absent: oropharynx clear (thrush) - Routine Respiratory Exam Present: crackles (faint crackles to left lower lobe) - Routine Cardiovascular Exam Present: S1, S2, irregularly irregular - Routine Abdominal Exam Present: soft, normoactive bowel sounds, non distended, non tender - Routine Extremities Exam Present: no edema, pulses intact - Routine Skin Exam Present: intact, dry, warm - Routine Neurological Exam Present: alert, oriented X3, normal speech - Routine Psychiatric Exam Present: normal affect, normal thought process, cooperative Results - Labs CBC & Chem 7: 11/17/17 09:38 11/17/17 09:38 Microbiology Results: Microbiology 11/10/17 01:25 Sputum, Expectorated Gram Stain - Final 11/10/17 01:25 Sputum, Expectorated Sputum Culture - Final Staphylococcus aureus, MRSA Pseudomonas aeruginosa Normal Respiratory Yue Assessment and Plan (1) Acute on chronic systolic (congestive) heart failure Current visit: No Status: Acute (2) Bronchitis Current visit: No Status: Acute Assessment and Plan: Impression Bronchitis/COPD exacerbation with fever at presentation +MRSA and + Pseudomonas Aeruginosa in Sputum C/S Acute on chronic non-ischemic systolic heart failure Acute kidney injury (POA) - resolved Hypernatremia (POA) - resolved Thrush (not POA) - Mycelex started 11/16 Severe cardiomyopathy - nonischemic [Hx of ICD] Atrial fibrillation - Not on anticoagulation chronically secondary to history of significant GI bleed HTN COPD JEANNA on CPAP Type II diabetes Stage III CKD Restless Leg Syndrome Parkinson's disease Bronchiectasis-RLL 09/19/17 Plan Continue cefepime and vancomycin for coverage of MRSA and Pseudomonas in sputum C/S - Day #6 of antibiotics. Renal function with slight increase, creatinine up to 1.5. He continues on Bumex 2 mg PO TID per Dr. Hinojosa. If renal function continues to decline, we' ll need to adjust the dose or hold Bumex. Weight is trending down. Cardiology started sotalol 20 mg daily on 11/16 d/t increased frequency of VT on telemetry. BP under good control. BG with at least 1 daily reading >200. If renal function remains stable, could consider increasing Metformin to BID. In the meantime, continue SSI. Discussed with Dr. Bates. Pt will be going home at time of dc; consider home health. DVT Prophylaxis: SCD's, SQ Heparin GI Prophylaxis: Protonix Resuscitation Status: Full Code - Physician Narrative Physician: Mariah Bates MD Narrative: Date: 11/17/17 Time: 1500 I have independently evaluated and examined this patient. I reviewed the chart, the patient's history, and the [employer]A DEVELOPMENT MANAGER/PA's documented findings as above. We discussed and formulated the assessment and plan as above with additions as below: Mr. Aviles reports that he feels good. He denies dyspnea and has minor residual cough. He's been walking without lightheadedness and reports his appetite is very good. Sputum culture was positive for Pseudomonas and MRSA-similar to findings last July. Review of prior CT scans demonstrates bronchiectasis has been demonstrated several years ago. NAD, alert Respirations nonlabored, diminished airflow with occasional wheezing; no rhonchi. Irregular cardiac rhythm-telemetry reviewed by myself-atrial fibrillation with adequate rate control. Chest x-ray obtained 11/15 also reviewed by myself demonstrating no acute disease , clear lung bearden. Day 6 antibiotics, given absence of infiltrates/fever/leukocytosis I'm comfortable converting to oral treatment of MRSA and Pseudomonas bronchitis however patient is allergic to tetracycline and Cipro/quinolones. Negative fluid balance. Generally doing well. Hospital Course Summary Disclaimer: The visit summary below is not to be considered part of the above Progress Note. Hospital Course: 11/10 hospital admission -Admit -Pt reports "allergy" to steroids. He reports they make him "mean" -azithromycin and ceftriaxone -Dr. Hinojosa consulted -Bumex drip ordered -Resume coreg -PRN diltiazem for HR >120 sustained -Dig 0.5mg IV now and then 0.25 in 6 hours times one -[id number] = -PPM/ICD in place -Exacerbation -Resp therapy -SSI -Hold home metformin -Bipap at night -change diltiazem to prn for hr/bp -Prophylaxis: PPI and SQ heparin 11/11 Continue current care 11/12 Discontinue Rocephin and Azithromycin. Start Cefepime and Vanco for better coverage of MRSA and Pseudomonas in sputum C/S Overall weight is trending down with diuretics. Bumex drip was stopped and he is currently on normal home regimen. Weight trending down. Appreciate cardiac consultation- Continues on Coreg and Cardizem Continue with scheduled nebulizers and acapella Overall BGMs have been well controlled Heparin subcutaneous for DVT prophylaxis 11/13 Continue cefepime and vancomycin for coverage of MRSA and Pseudomonas in sputum C/S-day #2. Will change Mucinex to Mucinex DM to help cough - add prn Tessalon Perles and Ricola. Continue with Neb Treatments. Potassium decreased to 3.4 - will give 20mEq KCl today at noon. Creatinine decreased to 1.3. Consult PT/OT to help increase functional status. Blood sugars showing increase. Continue ISS. Hold metformin for down due to resolving acute heart failure. Possible restart home lisinopril soon - creatinine improving and BP showing elevation to 130 to 140 systolic. 11/14 Continue cefepime and vancomycin for coverage of MRSA and Pseudomonas in sputum C/S - Day #3 of antibiotics. Continue Mucinex DM for cough with Tessalon Perles and Ricola. Continue with Neb Treatments. Unable to give steroids due to allergies. Hypokalemia resolved. Renal function continues to improve. Fast blood sugar improved and stable. Daytime sugars remain >200. Will restart home Metformin 500mg daily and continue to monitor blood sugars closely. SSI available. Blood pressure well controlled. Will continue to hold lisinopril and monitor pressures closely. 11/15 Continue cefepime and vancomycin for coverage of MRSA and Pseudomonas in sputum C/S - Day #4 of antibiotics. Continue DuoNeb and Pulmicort breathing txs and acapella. On heparin for VTE prophylaxis. BS's acceptable. Diamox 500mg po x1 today as CO2 elevated. Stressed the importance of increasing ambulation. 11/16 Continue cefepime and vancomycin for coverage of MRSA and Pseudomonas in sputum C/S - Day #5 of antibiotics. Cardiology increased Bumex to TID yesterday for "gentle diuresis." Patient is on 1500 mL fluid restriction. No labs drawn today. BMP ordered now to follow renal function and electrolytes. Chest x-ray yesterday reported resolution of pulmonary vascular congestion. Thrush present - start Mycelex for treatment. Cardiology started Sotalol 20mg daily due to increased episodes of VTACH. Lisinopril restated by Hospitalist, but cardiology increased to 5mg -- will decrease back to 2.5mg daily. 11/17 Continue cefepime and vancomycin for coverage of MRSA and Pseudomonas in sputum C/S - Day #6 of antibiotics. Renal function with slight increase, creatinine up to 1.5. He continues on Bumex 2 mg PO TID per Dr. Hinojosa. If renal function continues to decline, we' ll need to adjust the dose or hold Bumex. Weight is trending down. BP under good control. BG with at least 1 daily reading >200. If renal function remains stable, could consider increasing Metformin to BID.
[2017-11-17] MEDS: DOCUSATE SODIUM 100 MG CAPSULE PO SCH (20:40)
[2017-11-17] MEDS: GABAPENTIN 600 MG TABLET PO SCH (20:40)
[2017-11-17] MEDS: SALINE FLUSH 10ml SYRINGE IVF PRN (20:45)
[2017-11-17] MEDS: TRAMADOL 50 MG TABLET PO SCH (20:45)
[2017-11-18] MEDS: HEPARIN SUB-Q 5,000units/0.5ml INJECTION SQ SCH ×3 (01:10→17:42)
[2017-11-18] MEDS: PANTOPRAZOLE 20 MG TABLET PO SCH (06:07)
[2017-11-18] MEDS: BUDESONIDE INH.SOLN 0.5mg/2ml NEB AEROSOL SCH ×2 (08:00→21:28)
[2017-11-18] MEDS: ALBUTEROL/IPRATROPIUM 2.5mg-0.5mg/3ml NEB AEROSOL SCH ×4 (08:02→21:28)
[2017-11-18] MEDS: SILVER SULFADIAZINE 1% CREAM 25 GM TOP SCH (09:00)
[2017-11-18] MEDS: ROPINIROLE 2 MG TABLET PO SCH ×3 (09:42→20:09)
[2017-11-18] MEDS: LISINOPRIL 2.5 MG TABLET PO SCH (09:42)
[2017-11-18] MEDS: VITAMIN B COMPLEX + C TABLET PO SCH ×2 (09:42→16:44)
[2017-11-18] MEDS: METFORMIN 500 MG TABLET PO SCH ×2 (09:42→17:41)
[2017-11-18] MEDS: CARVEDILOL 25 MG TABLET PO SCH ×2 (09:42→17:42)
[2017-11-18] MEDS: GUAIFENESIN/D-METHORPHAN 600mg/30mg TABLET PO SCH ×2 (09:42→20:09)
[2017-11-18] MEDS: BUMETANIDE 1 MG TABLET PO SCH ×2 (09:43→16:00)
[2017-11-18] MEDS: SOTALOL 80 MG TABLET PO SCH (09:43)
[2017-11-18] MEDS: CLOTRIMAZOLE 10 MG TROCHE MM SCH ×5 (09:43→20:18)
[2017-11-18] MEDS: CEFEPIME 1 GM in NS 50 ML IV SCH ×2 (10:07→21:47)
--- NOTE | 2017-11-18 10:34 | Pharmacy Consult-Antibiotics ---
Pharmacy Consult-Vancomycin - Laboratory Information WBC 8.0 T/MM3 (4.5-11.0) 11/17/17 09:38 BUN 39.0 MG/DL (9-20) H 11/18/17 04:58 Creatinine 1.6 mg/dL (0.8-1.5) H D 11/18/17 04:58 Vancomycin Trough 23.16 ug/mL (15-20) H* 11/18/17 09:28 - Consult Information Creatinine climbing so urgent trough ordered, it was 23.16 mcg/ml. Vancomycin dose was held this morning pending trough so restarted at vancomycin 1250mg IV q36h at 1800 tonight. Will continue to monitor. Thank you.
[2017-11-18] MEDS: INSULIN REGULAR, HUMAN 100 UNIT/ML INJECTION SQ PRN ×2 (12:06→21:47)
--- NOTE | 2017-11-18 12:55 | Progress Note ---
- Date 11/18/17 Subjective: Almas is seen today in follow up. He is up in chair eating lunch. Denies any cough, SOA, pain or other concerns. Chart is reviewed for additional information. Objective Vital signs: Temperature 94.9 F L 11/18/17 07:40 Pulse Rate 68 11/18/17 09:43 Respiratory Rate 20 11/18/17 12:01 Blood Pressure 134/67 11/18/17 07:40 Pulse Oximetry 100 11/18/17 08:02 Rhythm: Atrial Fibrillation with Normal Ventricular Rate, Atrial Fibrillation with Bradycardia Height/Weight/BMI: Height 1.65 m Weight 65.6 kg Body Mass Index 24.7 - Constitutional Present: no acute distress, average body habitus, thin, cooperative - Routine HEENT Exam Head: Present: normocephalic, atraumatic Eye: Present: EOMI, PERRL, normal accommodation ENT: Present: mucous membranes moist - Routine Respiratory Exam Present: CTA bilaterally, diminished air movement. Absent: accessory muscle use , dyspnea - Routine Cardiovascular Exam Present: S1, S2, irregular rhythm - Routine Abdominal Exam Present: soft, normoactive bowel sounds, non distended, non tender - Routine Extremities Exam Present: no edema, non tender - Routine Musculoskeletal Exam Musculoskeletal: Present: moving extremities well - Routine Skin Exam Present: intact, dry, warm - Routine Neurological Exam Present: alert, moving all extremities - Routine Psychiatric Exam Present: normal affect, normal thought process, cooperative Results - Labs CBC & Chem 7: 11/17/17 09:38 11/18/17 04:58 Microbiology Results: Microbiology 11/10/17 01:25 Sputum, Expectorated Gram Stain - Final 11/10/17 01:25 Sputum, Expectorated Sputum Culture - Final Staphylococcus aureus, MRSA Pseudomonas aeruginosa Normal Respiratory Yue - Impressions CXR 11/15 negative Assessment and Plan (1) Acute on chronic systolic (congestive) heart failure Current visit: No Status: Acute (2) Bronchitis Current visit: No Status: Acute Assessment and Plan: Impression Bronchitis/COPD exacerbation with fever at presentation +MRSA and + Pseudomonas Aeruginosa in Sputum C/S Acute on chronic non-ischemic systolic heart failure Acute kidney injury (POA) - resolved Hypernatremia (POA) - resolved Thrush (not POA) - Mycelex started 11/16 Severe cardiomyopathy - nonischemic [Hx of ICD] Atrial fibrillation - Not on anticoagulation chronically secondary to history of significant GI bleed HTN COPD JEANNA on CPAP Type II diabetes Stage III CKD Restless Leg Syndrome Parkinson's disease Bronchiectasis Plan 11/18/17 Cefepime/Vanco d#7. Bronchiectasis. Multiple medication allergies make care needs more complex. Change to inhaled Tobramycin? Pharmacy assisting with vanco dosing. Continue inhaled medications to mobilize secretions. HF- continue Coreg, Lisinopril. Decreased Bumex to BID given mild increase of SCr. He is now bradycardic- on Coreg, Cardizem, Sotalol. Stop sotalol. If HR remains low, wean off Cardizem. DC PRN Cardizem dosing. No anticoagulants due to recent GI bleed. BG remains variable. Will increase Metformin to 500mg PO BID. (GFR 42) Repeat labs in AM. Potentially home soon? DVT Prophylaxis: SQ Heparin Resuscitation Status: Full Code - Physician Narrative Physician: Mariah Bates MD Narrative: Date: 11/18/17 Time: 1720 I have independently evaluated and examined this patient. I reviewed the chart, the patient's history, and the TOBACCO STRIPPER/PA's documented findings as above. We discussed and formulated the assessment and plan as above with additions as below: Mr. Aviles was seen with family at the bedside. He reports his breathing is substantially improved and cough nearly resolved over the past 2 days. His indicates previously being advised they could discharge as soon as Sunday but that they shouldn't go home before that time by physicians on Sunday. Patient was napping when seen but awoke to voice. Respirations nonlabored, decreased inspiratory effort, breath sounds clear Slight increase in BUN/creatinine-diuretic dose reduced Approaching discharge, no oral option for antibiotics due to drug sensitivities ; suspect chronically colonized. Hospital Course Summary Disclaimer: The visit summary below is not to be considered part of the above Progress Note. Hospital Course: 11/10 hospital admission -Admit -Pt reports "allergy" to steroids. He reports they make him "mean" -azithromycin and ceftriaxone -Dr. Hinojosa consulted -Bumex drip ordered -Resume coreg -PRN diltiazem for HR >120 sustained -Dig 0.5mg IV now and then 0.25 in 6 hours times one -[id number] = -PPM/ICD in place -Exacerbation -Resp therapy -SSI -Hold home metformin -Bipap at night -change diltiazem to prn for hr/bp -Prophylaxis: PPI and SQ heparin 11/11 Continue current care 11/12 Discontinue Rocephin and Azithromycin. Start Cefepime and Vanco for better coverage of MRSA and Pseudomonas in sputum C/S Overall weight is trending down with diuretics. Bumex drip was stopped and he is currently on normal home regimen. Weight trending down. Appreciate cardiac consultation- Continues on Coreg and Cardizem Continue with scheduled nebulizers and acapella Overall BGMs have been well controlled Heparin subcutaneous for DVT prophylaxis 11/13 Continue cefepime and vancomycin for coverage of MRSA and Pseudomonas in sputum C/S-day #2. Will change Mucinex to Mucinex DM to help cough - add prn Tessalon Perles and Ricola. Continue with Neb Treatments. Potassium decreased to 3.4 - will give 20mEq KCl today at noon. Creatinine decreased to 1.3. Consult PT/OT to help increase functional status. Blood sugars showing increase. Continue ISS. Hold metformin for down due to resolving acute heart failure. Possible restart home lisinopril soon - creatinine improving and BP showing elevation to 130 to 140 systolic. 11/14 Continue cefepime and vancomycin for coverage of MRSA and Pseudomonas in sputum C/S - Day #3 of antibiotics. Continue Mucinex DM for cough with Tessalon Perles and Ricola. Continue with Neb Treatments. Unable to give steroids due to allergies. Hypokalemia resolved. Renal function continues to improve. Fast blood sugar improved and stable. Daytime sugars remain >200. Will restart home Metformin 500mg daily and continue to monitor blood sugars closely. SSI available. Blood pressure well controlled. Will continue to hold lisinopril and monitor pressures closely. 11/15 Continue cefepime and vancomycin for coverage of MRSA and Pseudomonas in sputum C/S - Day #4 of antibiotics. Continue DuoNeb and Pulmicort breathing txs and acapella. On heparin for VTE prophylaxis. BS's acceptable. Diamox 500mg po x1 today as CO2 elevated. Stressed the importance of increasing ambulation. 11/16 Continue cefepime and vancomycin for coverage of MRSA and Pseudomonas in sputum C/S - Day #5 of antibiotics. Cardiology increased Bumex to TID yesterday for "gentle diuresis." Patient is on 1500 mL fluid restriction. No labs drawn today. BMP ordered now to follow renal function and electrolytes. Chest x-ray yesterday reported resolution of pulmonary vascular congestion. Thrush present - start Mycelex for treatment. Cardiology started Sotalol 20mg daily due to increased episodes of VTACH. Lisinopril restated by Hospitalist, but cardiology increased to 5mg -- will decrease back to 2.5mg daily. 11/17 Continue cefepime and vancomycin for coverage of MRSA and Pseudomonas in sputum C/S - Day #6 of antibiotics. Renal function with slight increase, creatinine up to 1.5. He continues on Bumex 2 mg PO TID per Dr. Hinojosa. If renal function continues to decline, we' ll need to adjust the dose or hold Bumex. Weight is trending down. BP under good control. BG with at least 1 daily reading >200. If renal function remains stable, could consider increasing Metformin to BID. Plan 11/18/17 Cefepime/Vanco d#7. Bronchiectasis. Multiple medication allergies make care needs more complex. Change to inhaled Tobramycin? Pharmacy assisting with vanco dosing. Continue inhaled medications to mobilize secretions. HF- continue Coreg, Lisinopril. Decreased Bumex to BID. He is now bradycardic- on Coreg, Cardizem, Sotalol. Stop sotalol. If HR remains low, wean off Cardizem. DC PRN Cardizem dosing. No anticoagulants due to recent GI bleed. BG remains variable. Will increase Metformin to 500mg PO BID. Repeat labs in AM. Potentially home soon?
[2017-11-18] MEDS: SALINE FLUSH 10ml SYRINGE IVF PRN (18:05)
[2017-11-18] MEDS: NS FLUSH BAG 500ml IV PRN (18:06)
[2017-11-18] MEDS: TRAMADOL 50 MG TABLET PO SCH (20:09)
[2017-11-18] MEDS: DOCUSATE SODIUM 100 MG CAPSULE PO SCH (20:09)
[2017-11-18] MEDS: GABAPENTIN 600 MG TABLET PO SCH (20:09)
[2017-11-19] MEDS: HEPARIN SUB-Q 5,000units/0.5ml INJECTION SQ SCH ×2 (01:01→08:50)
[2017-11-19] MEDS: PANTOPRAZOLE 20 MG TABLET PO SCH (06:04)
[2017-11-19] MEDS: ALBUTEROL/IPRATROPIUM 2.5mg-0.5mg/3ml NEB AEROSOL SCH ×3 (06:34→14:48)
[2017-11-19] MEDS: BUDESONIDE INH.SOLN 0.5mg/2ml NEB AEROSOL SCH (06:34)
[2017-11-19 06:39] VITALS: RESP 18
[2017-11-19] MEDS: GUAIFENESIN/D-METHORPHAN 600mg/30mg TABLET PO SCH (08:50)
[2017-11-19] MEDS: ROPINIROLE 2 MG TABLET PO SCH ×2 (08:50→15:59)
[2017-11-19] MEDS: METFORMIN 500 MG TABLET PO SCH (08:51)
[2017-11-19] MEDS: BUMETANIDE 1 MG TABLET PO SCH ×2 (08:51→15:57)
[2017-11-19] MEDS: CLOTRIMAZOLE 10 MG TROCHE MM SCH ×3 (08:51→15:58)
[2017-11-19] MEDS: CARVEDILOL 25 MG TABLET PO SCH (08:51)
[2017-11-19] MEDS: LISINOPRIL 2.5 MG TABLET PO SCH (08:52)
[2017-11-19] MEDS: SILVER SULFADIAZINE 1% CREAM 25 GM TOP SCH (08:52)
[2017-11-19] MEDS: CEFEPIME 1 GM in NS 50 ML IV SCH (09:52)
[2017-11-19] MEDS: SALINE FLUSH 10ml SYRINGE IVF PRN (09:53)
--- NOTE | 2017-11-19 11:36 | Progress Note ---
- Date 11/19/17 Subjective: Patient seen sitting on his bed. He reports he is doing well. He is anxious to go home. Cough and breathing are much improved. Appetite is good. Bowels are moving. Objective Vital signs: Temperature 95.6 F L 11/19/17 07:00 Pulse Rate 67 11/19/17 08:00 Respiratory Rate 18 11/19/17 10:10 Blood Pressure 115/59 11/19/17 08:53 Pulse Oximetry 96 11/19/17 10:10 Rhythm: Atrial Fibrillation with Normal Ventricular Rate, Atrial Fibrillation with Bradycardia Height/Weight/BMI: Height 1.65 m Weight 94.6 kg Body Mass Index 24.7 - Constitutional Present: no acute distress, well nourished, well developed - Routine HEENT Exam Head: Present: normocephalic, atraumatic - Routine Respiratory Exam Present: CTA bilaterally. Absent: wheezes - Routine Cardiovascular Exam Present: no murmur, irregularly irregular - Routine Abdominal Exam Present: soft, non distended, non tender - Routine Extremities Exam Present: no edema, normal capillary refill - Routine Skin Exam Present: dry, warm - Routine Neurological Exam Present: alert, oriented X3 - Routine Lymphatic Exam Lymphatic: Absent: adenopathy - Routine Psychiatric Exam Present: normal affect, cooperative Results - Labs CBC & Chem 7: 11/19/17 04:03 11/19/17 04:03 Microbiology Results: Microbiology 11/10/17 01:25 Sputum, Expectorated Gram Stain - Final 11/10/17 01:25 Sputum, Expectorated Sputum Culture - Final Staphylococcus aureus, MRSA Pseudomonas aeruginosa Normal Respiratory Yue Assessment and Plan (1) Acute on chronic systolic (congestive) heart failure Current visit: No Status: Acute (2) Bronchitis Current visit: No Status: Acute Assessment and Plan: Impression Bronchitis/COPD exacerbation with fever at presentation +MRSA and + Pseudomonas Aeruginosa in Sputum C/S Acute on chronic non-ischemic systolic heart failure Acute kidney injury (POA) - resolved Hypernatremia (POA) - resolved Thrush (not POA) - Mycelex started 11/16 Severe cardiomyopathy - nonischemic [Hx of ICD] Atrial fibrillation - Not on anticoagulation chronically secondary to history of significant GI bleed HTN COPD JEANNA on CPAP Type II diabetes Stage III CKD Restless Leg Syndrome Parkinson's disease Bronchiectasis Plan Cefepime/Vanco d#8. DC antibiotics today. Bumex was decreased to BID yesterday given increase of SCr. Discussed with cardiology. Recommend continuing him on the Bumex twice a day as this is his home dose and he will be drinking more home. Sotalol was discontinued yesterday due to bradycardia. He continues on Coreg and Cardizem. No anticoagulants due to recent GI bleed. Metformin was increased to 500mg PO BID yesterday. (GFR 42) Will need to monitor renal fx OP. DC home today with home health. Resuscitation Status: Full Code - Physician Narrative Physician: Mariah Bates MD Narrative: Date: 11/19/17 Time: 1630 I have independently evaluated and examined this patient. I reviewed the chart, the patient's history, and the SERVICE WRITER/PA's documented findings as above. We discussed and formulated the assessment and plan as above with additions as below: Doing well, cough significantly improved and edema has resolved. Stable for discharge. Creatinine is up slightly-metformin on hold. We'll discontinue Levaquin/vancomycin-likely chronic colonization with bronchiectasis. Medications reviewed with cardiology-resume sotalol for management of NSVT, patient has underlying pacemaker to prevent bradycardia arrhythmias. Respirations nonlabored, decreased breath sounds throughout but no rhonchi, crackles, or wheezing present. Please refer to discharge summary for additional comments. Hospital Course Summary Disclaimer: The visit summary below is not to be considered part of the above Progress Note. Hospital Course: 11/10 hospital admission -Admit -Pt reports "allergy" to steroids. He reports they make him "mean" -azithromycin and ceftriaxone -Dr. Hinojosa consulted -Bumex drip ordered -Resume coreg -PRN diltiazem for HR >120 sustained -Dig 0.5mg IV now and then 0.25 in 6 hours times one -[id number] = -PPM/ICD in place -Exacerbation -Resp therapy -SSI -Hold home metformin -Bipap at night -change diltiazem to prn for hr/bp -Prophylaxis: PPI and SQ heparin 11/11 Continue current care 11/12 Discontinue Rocephin and Azithromycin. Start Cefepime and Vanco for better coverage of MRSA and Pseudomonas in sputum C/S Overall weight is trending down with diuretics. Bumex drip was stopped and he is currently on normal home regimen. Weight trending down. Appreciate cardiac consultation- Continues on Coreg and Cardizem Continue with scheduled nebulizers and acapella Overall BGMs have been well controlled Heparin subcutaneous for DVT prophylaxis 11/13 Continue cefepime and vancomycin for coverage of MRSA and Pseudomonas in sputum C/S-day #2. Will change Mucinex to Mucinex DM to help cough - add prn Tessalon Perles and Ricola. Continue with Neb Treatments. Potassium decreased to 3.4 - will give 20mEq KCl today at noon. Creatinine decreased to 1.3. Consult PT/OT to help increase functional status. Blood sugars showing increase. Continue ISS. Hold metformin for down due to resolving acute heart failure. Possible restart home lisinopril soon - creatinine improving and BP showing elevation to 130 to 140 systolic. 11/14 Continue cefepime and vancomycin for coverage of MRSA and Pseudomonas in sputum C/S - Day #3 of antibiotics. Continue Mucinex DM for cough with Tessalon Perles and Ricola. Continue with Neb Treatments. Unable to give steroids due to allergies. Hypokalemia resolved. Renal function continues to improve. Fast blood sugar improved and stable. Daytime sugars remain >200. Will restart home Metformin 500mg daily and continue to monitor blood sugars closely. SSI available. Blood pressure well controlled. Will continue to hold lisinopril and monitor pressures closely. 11/15 Continue cefepime and vancomycin for coverage of MRSA and Pseudomonas in sputum C/S - Day #4 of antibiotics. Continue DuoNeb and Pulmicort breathing txs and acapella. On heparin for VTE prophylaxis. BS's acceptable. Diamox 500mg po x1 today as CO2 elevated. Stressed the importance of increasing ambulation. 11/16 Continue cefepime and vancomycin for coverage of MRSA and Pseudomonas in sputum C/S - Day #5 of antibiotics. Cardiology increased Bumex to TID yesterday for "gentle diuresis." Patient is on 1500 mL fluid restriction. No labs drawn today. BMP ordered now to follow renal function and electrolytes. Chest x-ray yesterday reported resolution of pulmonary vascular congestion. Thrush present - start Mycelex for treatment. Cardiology started Sotalol 20mg daily due to increased episodes of VTACH. Lisinopril restated by Hospitalist, but cardiology increased to 5mg -- will decrease back to 2.5mg daily. 11/17 Continue cefepime and vancomycin for coverage of MRSA and Pseudomonas in sputum C/S - Day #6 of antibiotics. Renal function with slight increase, creatinine up to 1.5. He continues on Bumex 2 [address] PO T[address] per Dr[address] Hinojosa. If renal function continues to decline, we' ll need to adjust the dose or hold Bumex. Weight is trending down. BP under good control. BG with at least 1 daily reading >200. If renal function remains stable, could consider increasing Metformin to BID. 11/18 Cefepime/Vanco d#7. Bronchiectasis. Multiple medication allergies make care needs more complex. HF- continue Coreg, Lisinopril. Decreased Bumex to BID. He is now bradycardic- on Coreg, Cardizem, Sotalol. Stop sotalol. If HRremains low, wean off Cardizem. DC PRN Cardizem dosing. BG remains variable. Will increase Metformin to 500mg PO BID. 11/19 Cefepime/Vanco d#8. DC antibiotics today. Bumex was decreased to BID yesterday given increase of SCr. Discussed with cardiology. Recommend continuing him on the Bumex twice a day as this is his home dose and he will be drinking more home. Sotalol was discontinued yesterday due to bradycardia. He continues on Coreg and Cardizem. No anticoagulants due to recent GI bleed. Metformin was increased to 500mg PO BID yesterday. (GFR 42) Will need to monitor renal fx OP. DC home today with home health.
[2017-11-19] MEDS: VITAMIN B COMPLEX + C TABLET PO SCH ×2 (11:51→15:57)
[2017-11-19] MEDS: INSULIN REGULAR, HUMAN 100 UNIT/ML INJECTION SQ PRN ×2 (11:52→15:56)
[2017-11-19 15:14] VITALS: BP 121/62; PULSE 50; TEMP 95.4; O2SAT 93
--- NOTE | 2017-11-19 15:24 | Cardiology Progress Note ---
<Rhonda Adames - Last Filed: 11/19/17 15:21> Subjective Principal diagnosis: CHF exacerbation, URI, COPD exacerbation Interval history: Almas is seen in follow up for CHF exacerbation, He is seen in his room on [facility], he states his is on the way to take him home. He denies chest pain or pressure. Exam Vital signs: Temperature 95.4 F L 11/19/17 15:05 Pulse Rate 50 L 11/19/17 15:05 Respiratory Rate 18 11/19/17 15:05 Blood Pressure 121/62 11/19/17 15:05 Pulse Oximetry 93 11/19/17 15:05 Inpatient Medications: Generic Name Dose Route Start Last Admin Trade Name Freq PRN Reason Stop Dose Admin Acetaminophen 1,300 mg 11/10/17 09:47 11/15/17 09:26 Tylenol Arthritis PO 1,300 mg BID PRN Administration Pain Albuterol/Ipratropium 3 ml 11/10/17 15:00 11/19/17 14:48 Duoneb AEROSOL 3 ml RTQID RODRIGO Administration Albuterol/Ipratropium 3 ml 11/10/17 14:16 Duoneb AEROSOL RTQID PRN Benzonatate 100 mg 11/13/17 11:02 11/16/17 09:29 Tessalon Perles PO 100 mg TID PRN Administration Cough Bisacodyl 10 mg 11/13/17 11:03 Dulcolax RECTALLY DAILY PRN Constipation Budesonide 0.5 mg 11/10/17 19:00 11/19/17 06:34 Pulmicort Inhalation AEROSOL 0.5 mg RTBID RODRIGO Administration Bumetanide 2 mg 11/18/17 14:00 11/19/17 08:51 Bumex 1 Mg Tab PO 2 mg [id number] RODRIGO Administration Carbidopa/Levodopa 1 tab 11/10/17 15:00 11/19/17 08:51 Sinemet PO 1 tab TID RODRIGO Administration Carvedilol 25 mg 11/10/17 17:30 11/19/17 08:51 Coreg PO 25 mg BIDWM RODRIGO Administration Clotrimazole 10 mg 11/16/17 18:30 11/19/17 11:51 Mycelex Carlos Manuel MM 10 mg 5XD RODRIGO Administration Dextrose 1 ml 11/10/17 10:51 D50%W IVP PRN PRN Hypoglycemia Diltiazem HCl 120 mg 11/13/17 10:30 11/19/17 08:52 Cardizem Cd 120 Mg PO 120 mg DAILY RODRIGO Administration Docusate Sodium 200 mg 11/10/17 21:00 11/18/17 20:09 Colace PO 200 mg HS RODRIGO Administration Gabapentin 600 mg 11/10/17 21:00 11/18/17 20:09 Neurontin PO 600 mg HS RODRIGO Administration Glucose 37.5 gm 11/10/17 10:51 Glutose 15 PO PRN PRN Hypoglycemia Guaifenesin/Dextromethorphan 10 ml 11/10/17 22:53 11/14/17 17:48 Robitussin Dm PO 10 ml Q4H PRN Administration Cough /Congestion Guaifenesin/Dextromethorphan 1 tab 11/13/17 21:00 11/19/17 08:50 Mucinex Dm PO 1 tab BID RODRIGO Administration Heparin Sodium (Porcine) 5,000 units 11/11/17 17:00 11/19/17 08:50 Heparin Sq SQ 5,000 units Q8HR RODRIGO Administration Insulin Human Regular 2 - 8 unit 11/10/17 10:51 11/19/17 11:52 Novolin R SQ 2 unit SS PRN Administration Hyperglycemia Protocol Lisinopril 2.5 mg 11/17/17 09:00 11/19/17 08:52 Prinivil PO 2.5 mg DAILY RODRIGO Administration Magnesium Hydroxide 30 ml 11/13/17 11:03 Mom PO DAILY PRN Constipation Menthol 1 lozenge 11/13/17 11:41 11/14/17 15:24 Ricola Sf MM 1 lozenge PRN PRN Administration Cough Metformin HCl 500 mg 11/18/17 17:30 11/19/17 08:51 Glucophage PO 500 mg BIDWM RODRIGO Administration Multivitamins 1 tab 11/10/17 14:00 11/19/17 11:51 Total B + C PO 1 tab [id number] RODRIGO Administration Pantoprazole Sodium 20 mg 11/12/17 06:30 11/19/17 06:04 Protonix PO 20 mg ACB RODRIGO Administration Polyethylene Glycol 17 gm 11/13/17 11:03 Miralax PO DAILY PRN Constipation Potassium Chloride 20 meq 11/11/17 17:30 11/19/17 08:51 K-Dur 20 Meq Tablet PO 20 meq BIDWM RODRIGO Administration Ropinirole HCl 2 mg 11/10/17 15:00 11/19/17 08:50 Requip PO 2 mg TID RODRIGO Administration Silver Sulfadiazine 1 applic 11/11/17 09:00 11/19/17 08:52 Silvadene TOP 1 applic DAILY RODRIGO Administration Sodium Chloride 10 - 80 ml 11/09/17 21:40 11/19/17 09:53 Iv Flush IVF 10 ml PRN PRN Administration Flushing Sodium Chloride 500 ml 11/16/17 09:34 11/18/17 18:06 Normal Saline IV 500 ml PRN PRN Administration Sotalol HCl 20 mg 11/16/17 16:15 11/18/17 09:43 Betapace PO 20 mg DAILY RODRIGO Administration Tramadol HCl 50 mg 11/10/17 21:00 11/18/17 20:09 Ultram PO 50 mg HS RODRIGO Administration Discontinued Medications Generic Name Dose Route Start Last Admin Trade Name Freq PRN Reason Stop Dose Admin Acetazolamide 500 mg 11/15/17 09:24 11/15/17 11:46 Diamox PO 11/15/17 09:25 500 mg O ONE Administration Albuterol/Ipratropium 3 ml 11/09/17 21:44 11/09/17 21:54 Duoneb AEROSOL 11/09/17 21:45 3 ml O ONE Administration Azithromycin 500 mg 11/10/17 09:00 11/10/17 10:33 Zithromax PO Not Given DAILY RODRIGO Azithromycin 500 mg 11/10/17 21:00 11/11/17 21:08 Zithromax PO 500 mg HS RODRIGO Administration Budesonide 0.5 mg 11/09/17 21:44 11/09/17 21:54 Pulmicort Inhalation AEROSOL 11/09/17 21:45 0.5 mg O ONE Administration Bumetanide 1 mg 11/09/17 23:59 11/10/17 01:06 Bumex 1 Mg/4 Ml Inj. IVP 11/10/17 00:00 1 mg O ONE Administration Bumetanide 2 mg 11/10/17 21:00 Bumex 1 Mg Tab PO BID RODRIGO Bumetanide 2 mg 11/10/17 11:30 11/10/17 12:23 Bumex 1 Mg/4 Ml Inj. IVP 11/10/17 11:31 2 mg O ONE Administration Bumetanide 2 mg 11/11/17 17:30 11/15/17 09:23 Bumex 1 Mg Tab PO 2 mg BIDBS RODRIGO Administration Bumetanide 2 mg 11/15/17 15:03 11/18/17 09:43 Bumex 1 Mg Tab PO 2 mg TID RODRIGO Administration Carbidopa/Levodopa 1 tab 11/10/17 09:00 11/10/17 10:17 Sinemet PO Not Given TID RODRIGO Dexamethasone 8 mg 11/09/17 22:15 11/09/17 22:32 Decadron IVP 11/09/17 22:16 8 mg O ONE Administration Digoxin 500 mcg 11/10/17 11:25 11/10/17 12:14 Lanoxin IVP 11/10/17 11:26 500 mcg O ONE Administration Digoxin 125 mcg 11/10/17 16:00 11/10/17 16:40 Lanoxin IVP 11/10/17 16:01 125 mcg O ONE Administration Diltiazem HCl 120 mg 11/10/17 10:00 11/10/17 10:40 Cardizem Cd 120 Mg PO 120 mg DAILY RODRIOG Administration Diltiazem HCl 30 mg 11/10/17 16:05 Cardizem Ir 30 Mg Tab PO Q6HR PRN FOR HR sustained >120 Docusate Sodium 200 mg 11/10/17 09:00 11/10/17 10:17 Colace PO Not Given BID RODRIGO Gabapentin 600 mg 11/10/17 22:00 11/10/17 01:09 Neurontin PO 600 mg DAILY RODRIGO Administration Guaifenesin 1,200 mg 11/10/17 21:00 11/13/17 08:09 Mucinex La PO 1,200 mg BID RODRIGO Administration Albumin Human 12.5 g/ IV 50 mls @ 50 mls/hr 11/09/17 23:59 11/10/17 02:07 Solution IV 11/10/17 00:58 Infused O ONE Infusion Bumetanide 25 mg/ IV Solution 100 mls @ 2 mls/hr 11/10/17 12:00 11/11/17 10: 30 IV Infused Q24H RODRIGO Infusion Ceftriaxone Sodium 1 g/ Sodium 100 mls @ 200 mls/hr 11/10/17 16:15 11/10/17 17:55 Chloride IV Infused Q24H RODRIGO Infusion Ceftriaxone Sodium 1 g/ Sodium 50 mls @ 200 mls/hr 11/11/17 09:00 11/13/17 07 :56 Chloride IV Not Given Q24HR RODRIGO Sodium Chloride 500 mls @ 10 mls/hr 11/10/17 21:39 11/12/17 02:02 Normal Saline IV Not Given .Q24H RODRIGO Cefepime HCl 1 gm/ Sodium 50 mls @ 100 mls/hr 11/12/17 09:45 11/19/17 09:52 Chloride IV 100 mls/hr Q12H RODRIGO Administration Vancomycin HCl 1,500 mg/ 500 mls @ 250 mls/hr 11/12/17 10:30 11/13/17 07:56 Sodium Chloride IV 11/12/17 12:29 Infused O ONE Infusion Vancomycin HCl 1,000 mg/ 250 mls @ 250 mls/hr 11/13/17 04:30 11/16/17 21:25 Sodium Chloride IV Not Given Q18H RODRIGO Vancomycin HCl 1,000 mg/ 250 mls @ 250 mls/hr 11/15/17 12:00 11/16/17 07:14 Sodium Chloride IV Infused Q18H RODRIGO Infusion Vancomycin HCl 1,000 mg/ 250 mls @ 250 mls/hr 11/17/17 09:00 11/17/17 11:16 Sodium Chloride IV Infused Q24H RODRIGO Infusion Vancomycin HCl 1,250 mg/ 250 mls @ 200 mls/hr 11/18/17 18:00 11/18/17 19:30 Sodium Chloride IV Infused Q36H RODRIGO Infusion Insulin Human Regular 12 unit 11/10/17 11:00 11/10/17 12:11 Novolin R SQ 11/10/17 11:01 12 unit O ONE Administration Insulin Human Regular 12 unit 11/10/17 16:15 11/10/17 16:40 Novolin R SQ 11/10/17 16:16 12 unit O ONE Administration Lisinopril 2.5 mg 11/16/17 09:15 11/16/17 10:01 Prinivil PO 2.5 mg DAILY RODRIGO Administration Lisinopril 5 mg 11/16/17 15:15 Prinivil PO DAILY RODRIGO Metformin HCl 500 mg 11/14/17 10:30 11/18/17 09:42 Glucophage PO 500 mg WB RODRIGO Administration Potassium Chloride 20 meq 11/11/17 09:00 11/11/17 09:30 K-Dur 20 Meq Tablet PO Not Given DAILY RODRIGO Potassium Chloride 20 meq 11/10/17 12:00 11/11/17 09:36 K-Dur 20 Meq Tablet PO 20 meq TIDWM RODRIGO Administration Potassium Chloride 20 meq 11/13/17 12:30 11/13/17 12:18 K-Dur 20 Meq Tablet PO 11/13/17 12:31 20 meq O ONE Administration Ropinirole HCl 2 mg 11/10/17 09:00 11/10/17 10:33 Requip PO Not Given TID RODRIGO Sotalol HCl 20 mg 11/16/17 09:00 11/16/17 21:25 Betapace PO Not Given DAILY RODRIGO Tramadol HCl 50 mg 11/10/17 21:00 11/10/17 01:08 Ultram PO 50 mg HS RODRIGO Administration Vancomycin HCl 1 each 11/12/17 09:12 11/13/17 07:30 Pharmacy Consult - Vancomycin MC 11/12/17 09:13 1 each O ONE Administration - Constitutional no acute distress, well nourished, cooperative - Routine HEENT Exam Head: Present: normocephalic - Routine Neck Exam Absent: JVD, carotid bruit - Routine Chest/Breast/Axilla Exam Chest wall: Present: pacemaker. Absent: tenderness - Routine Respiratory Exam Present: decreased breath sounds, CTA bilaterally. Absent: dyspnea, diminished air movement - Routine Cardiovascular Exam Present: no murmur, irregular rhythm - Routine Abdominal Exam Present: soft, normoactive bowel sounds - Routine Extremities Exam Present: no edema - Routine Skin Exam Present: intact, dry, warm - Routine Neurological Exam Present: alert, oriented X3 - Routine Psychiatric Exam Present: normal affect, normal thought process Results 11/19/17 04:03 11/19/17 04:03 CBC 11/19/17 Range/Units 04:03 WBC 6.9 (4.5-11.0) T/MM3 RBC 4.55 (4.50-5.90) M/MM3 Hgb 13.3 L (13.5-17.5) GM/DL Hct 41.8 (41-53) % Plt Count 202 D (130-400) T/MM3 Neut # (Auto) 4.2 (1.8-7.7) T/MM3 Lymph # (Auto) 1.8 (1-4.8) T/MM3 [place] # (Auto) 0.7 (0-0.8) T/MM3 Eos # (Auto) 0.2 (0-0.5) T/MM3 Baso # (Auto) 0.0 (0-0.2) T/MM3 Comprehensive Metabolic Panel 11/19/17 Range/Units 04:03 Sodium 141 (134-144) MEQ/L Potassium 4.4 (3.6-5) MEQ/L Chloride 98 (98-107) MEQ/L Carbon Dioxide 32 H (22-30) MEQ/L BUN 39.0 H (9-20) MG/DL Creatinine 1.8 H D (0.8-1.5) mg/dL Glucose 79 (75-110) MG/DL Calcium 9.4 (8.4-10.2) MG/DL Albumin 3.7 (3.5-5.0) g/dL Intake and Output 11/19/17 11/19/17 11/19/17 06:59 14:59 22:59 Intake Total 163 / 163 640 / 640 Balance 163 / 163 640 / 640 Intake: Oral 163 / 163 640 / 640 Other: Urine Appearance Clear Urine Color Yellow # Voids 1 Weight 208 lb 8.917 oz Patient Weight 11/20/17 06:59 Weight 208 lb 8.917 oz Assessment and Plan - Assessment and Plan (1) Bronchitis Status: Acute (2) Acute on chronic systolic (congestive) heart failure Status: Acute (3) Paroxysmal atrial fibrillation Status: Chronic (4) Essential (primary) hypertension Status: Chronic (5) ICD (implantable cardioverter-defibrillator) in place Status: Chronic (6) Cardiomyopathy Status: Chronic - Assessment and Plan 11/10/17: Rate up to 160's in afib on tele this AM. IV dig .5mg IVP now, .25mg IVP in 4 hours. Start Coreg 25mg bid this evening, hold sbp <100. Pt got dose of diltiazem 180 this am. Not a full anticoagulation candidate due to personal hx of significant bleed. Bumex 2mg IVP now, then 0.5mg/hr Bumex gtt. Potassium 3.6 today, replace 20meq TID, follow renal function and lytes. Agree with fluid restriction and low Na diet. COPD, URI, DM managed per attending. 11/11/17: down 1kg, I&O -1800 since admit. Creatinine and lytes stable today. CxR today mild improvement of central venous congestion when compared to . DC bumex drip, resume home dosing of bumex to 2mg bid (dose increase just this week from Ashish YODER). K 3.6 today, replace 20meq bid, follow labs. Rate well controlled on coreg 25mg bid, IV dig yesterday and short acting diltiazem 30mg q6 prn rate >120 (per attending order). Continue current AFib rate meds, consider changing back to home cardizem 180mg daily as bp allows. URI, COPD, DM2 management per attending, pt reporting improved cough with nebulizing tx's. 11/12/17 +MRSA and + Pseudomonas Aeruginosa in Sputum C/S - BNP in am 11/13/17 AFib: Resume home Cardizem 120mg po Daily for rate control - Is not a candidate for intermission coordinator coagulation due to history of GI bleeding on Pradaxa X2 BNP [id number] today, [place] [id number] 11/14/17 Stable from Cardiac standpoint for discharge. CHF is at patient's baseline 11/15/17 1500mL fluid restriction please - Increase Bumex to TID for now for gentle diuresis - Monitor renal and electrolytes 11/16/17 Increased frequency of V Tach on tele - Start Sotalol 20mg daily - Increase Lisinopril for better BP control 11/19/17 Continue Sotalol 20mg daily for NSVT Continue Bumex 2mg BID for diuresis on discharge. Hospital Course Summary Disclaimer: The visit summary below is not to be considered part of the above Progress Note. Hospital Course: 11/10 hospital admission -Admit -Pt reports "allergy" to steroids. He reports they make him "mean" -azithromycin and ceftriaxone -Dr. Hinojosa consulted -Bumex drip ordered -Resume coreg -PRN diltiazem for HR >120 sustained -Dig 0.5mg IV now and then 0.25 in 6 hours times one -[id number] = -PPM/ICD in place -Exacerbation -Resp therapy -SSI -Hold home metformin -Bipap at night -change diltiazem to prn for hr/bp -Prophylaxis: PPI and SQ heparin 11/11 Continue current care 11/12 Discontinue Rocephin and Azithromycin. Start Cefepime and Vanco for better coverage of MRSA and Pseudomonas in sputum C/S Overall weight is trending down with diuretics. Bumex drip was stopped and he is currently on normal home regimen. Weight trending down. Appreciate cardiac consultation- Continues on Coreg and Cardizem Continue with scheduled nebulizers and acapella Overall BGMs have been well controlled Heparin subcutaneous for DVT prophylaxis 11/13 Continue cefepime and vancomycin for coverage of MRSA and Pseudomonas in sputum C/S-day #2. Will change Mucinex to Mucinex DM to help cough - add prn Tessalon Perles and Ricola. Continue with Neb Treatments. Potassium decreased to 3.4 - will give 20mEq KCl today at noon. Creatinine decreased to 1.3. Consult PT/OT to help increase functional status. Blood sugars showing increase. Continue ISS. Hold metformin for down due to resolving acute heart failure. Possible restart home lisinopril soon - creatinine improving and BP showing elevation to 130 to 140 systolic. 11/14 Continue cefepime and vancomycin for coverage of MRSA and Pseudomonas in sputum C/S - Day #3 of antibiotics. Continue Mucinex DM for cough with Tessalon Perles and Ricola. Continue with Neb Treatments. Unable to give steroids due to allergies. Hypokalemia resolved. Renal function continues to improve. Fast blood sugar improved and stable. Daytime sugars remain >200. Will restart home Metformin 500mg daily and continue to monitor blood sugars closely. SSI available. Blood pressure well controlled. Will continue to hold lisinopril and monitor pressures closely. 11/15 Continue cefepime and vancomycin for coverage of MRSA and Pseudomonas in sputum C/S - Day #4 of antibiotics. Continue DuoNeb and Pulmicort breathing txs and acapella. On heparin for VTE prophylaxis. BS's acceptable. Diamox 500mg po x1 today as CO2 elevated. Stressed the importance of increasing ambulation. 11/16 Continue cefepime and vancomycin for coverage of MRSA and Pseudomonas in sputum C/S - Day #5 of antibiotics. Cardiology increased Bumex to TID yesterday for "gentle diuresis." Patient is on 1500 mL fluid restriction. No labs drawn today. BMP ordered now to follow renal function and electrolytes. Chest x-ray yesterday reported resolution of pulmonary vascular congestion. Thrush present - start Mycelex for treatment. Cardiology started Sotalol 20mg daily due to increased episodes of VTACH. Lisinopril restated by Hospitalist, but cardiology increased to 5mg -- will decrease back to 2.5mg daily. 11/17 Continue cefepime and vancomycin for coverage of MRSA and Pseudomonas in sputum C/S - Day #6 of antibiotics. Renal function with slight increase, creatinine up to 1.5. He continues on Bumex 2 [address] PO TID per Dr. Hinojosa. If renal function continues to decline, we' ll need to adjust the dose or hold Bumex. Weight is trending down. BP under good control. BG with at least 1 daily reading >200. If renal function remains stable, could consider increasing Metformin to BID. 11/18 Cefepime/Vanco d#7. Bronchiectasis. Multiple medication allergies make care needs more complex. HF- continue Coreg, Lisinopril. Decreased Bumex to BID. He is now bradycardic- on Coreg, Cardizem, Sotalol. Stop sotalol. If HRremains low, wean off Cardizem. DC PRN Cardizem dosing. BG remains variable. Will increase Metformin to 500mg PO BID. 11/19 Cefepime/Vanco d#8. DC antibiotics today. Bumex was decreased to BID yesterday given increase of SCr. Discussed with cardiology. Recommend continuing him on the Bumex twice a day as this is his home dose and he will be drinking more home. Sotalol was discontinued yesterday due to bradycardia. He continues on Coreg and Cardizem. No anticoagulants due to recent GI bleed. Metformin was increased to 500mg PO BID yesterday. (GFR 42) Will need to monitor renal fx OP. DC home today with home health. <Jonathan Hinojosa - Last Filed: 11/21/17 13:05> Exam Vital signs: Temperature 95.4 F L 11/19/17 15:05 Pulse Rate 50 L 11/19/17 15:05 Respiratory Rate 18 11/19/17 15:05 Blood Pressure 121/62 11/19/17 15:05 Pulse Oximetry 93 11/19/17 15:05 Inpatient Medications: Discontinued Medications Generic Name Dose Route Start Last Admin Trade Name Freq PRN Reason Stop Dose Admin Acetaminophen 1,300 mg 11/10/17 09:47 11/15/17 09:26 Tylenol Arthritis PO 1,300 mg BID PRN Administration Pain Acetazolamide 500 mg 11/15/17 09:24 11/15/17 11:46 Diamox PO 11/15/17 09:25 500 mg O ONE Administration Albuterol/Ipratropium 3 ml 11/09/17 21:44 11/09/17 21:54 Duoneb AEROSOL 11/09/17 21:45 3 ml O ONE Administration Albuterol/Ipratropium 3 ml 11/10/17 15:00 11/19/17 14:48 Duoneb AEROSOL 3 ml RTQID RODRIGO Administration Albuterol/Ipratropium 3 ml 11/10/17 14:16 Duoneb AEROSOL RTQID PRN Azithromycin 500 mg 11/10/17 09:00 11/10/17 10:33 Zithromax PO Not Given DAILY RODRIGO Azithromycin 500 mg 11/10/17 21:00 11/11/17 21:08 Zithromax PO 500 mg HS RODRIGO Administration Benzonatate 100 mg 11/13/17 11:02 11/16/17 09:29 Tessalon Perles PO 100 mg TID PRN Administration Cough Bisacodyl 10 mg 11/13/17 11:03 Dulcolax RECTALLY DAILY PRN Constipation Budesonide 0.5 mg 11/09/17 21:44 11/09/17 21:54 Pulmicort Inhalation AEROSOL 11/09/17 21:45 0.5 mg O ONE Administration Budesonide 0.5 mg 11/10/17 19:00 11/19/17 06:34 Pulmicort Inhalation AEROSOL 0.5 mg RTBID RODRIGO Administration Bumetanide 1 mg 11/09/17 23:59 11/10/17 01:06 Bumex 1 Mg/4 Ml Inj. IVP 11/10/17 00:00 1 mg O ONE Administration Bumetanide 2 mg 11/10/17 21:00 Bumex 1 Mg Tab PO BID RODRIGO Bumetanide 2 mg 11/10/17 11:30 11/10/17 12:23 Bumex 1 Mg/4 Ml Inj. IVP 11/10/17 11:31 2 mg O ONE Administration Bumetanide 2 mg 11/11/17 17:30 11/15/17 09:23 Bumex 1 Mg Tab PO 2 mg BIDBS RODRIGO Administration Bumetanide 2 mg 11/15/17 15:03 11/18/17 09:43 Bumex 1 Mg Tab PO 2 mg TID RODRIGO Administration Bumetanide 2 mg 11/18/17 14:00 11/19/17 15:57 Bumex 1 Mg Tab PO 2 mg [id number] RODRIGO Administration Carbidopa/Levodopa 1 tab 11/10/17 09:00 11/10/17 10:17 Sinemet PO Not Given TID RODRIGO Carbidopa/Levodopa 1 tab 11/10/17 15:00 11/19/17 16:02 Sinemet PO 1 tab TID RODRIGO Administration Carvedilol 25 mg 11/10/17 17:30 11/19/17 08:51 Coreg PO 25 mg BIDWM RODRIGO Administration Clotrimazole 10 mg 11/16/17 18:30 11/19/17 15:58 Mycelex Carlos Manuel MM 10 mg 5XD RODRIGO Administration Dexamethasone 8 mg 11/09/17 22:15 11/09/17 22:32 Decadron IVP 11/09/17 22:16 8 mg O ONE Administration Dextrose 1 ml 11/10/17 10:51 D50%W IVP PRN PRN Hypoglycemia Digoxin 500 mcg 11/10/17 11:25 11/10/17 12:14 Lanoxin IVP 11/10/17 11:26 500 mcg O ONE Administration Digoxin 125 mcg 11/10/17 16:00 11/10/17 16:40 Lanoxin IVP 11/10/17 16:01 125 mcg O ONE Administration Diltiazem HCl 120 mg 11/10/17 10:00 11/10/17 10:40 Cardizem Cd 120 Mg PO 120 mg DAILY RODRIGO Administration Diltiazem HCl 30 mg 11/10/17 16:05 Cardizem Ir 30 Mg Tab PO Q6HR PRN FOR HR sustained >120 Diltiazem HCl 120 mg 11/13/17 10:30 11/19/17 08:52 Cardizem Cd 120 Mg PO 120 mg DAILY RODRIGO Administration Docusate Sodium 200 mg 11/10/17 09:00 11/10/17 10:17 Colace PO Not Given BID RODRIGO Docusate Sodium 200 mg 11/10/17 21:00 11/18/17 20:09 Colace PO 200 mg HS RODRIGO Administration Gabapentin 600 mg 11/10/17 22:00 11/10/17 01:09 Neurontin PO 600 mg DAILY RODRIGO Administration Gabapentin 600 mg 11/10/17 21:00 11/18/17 20:09 Neurontin PO 600 mg HS RODRIGO Administration Glucose 37.5 gm 11/10/17 10:51 Glutose 15 PO PRN PRN Hypoglycemia Guaifenesin 1,200 mg 11/10/17 21:00 11/13/17 08:09 Mucinex La PO 1,200 mg BID RODRIGO Administration Guaifenesin/Dextromethorphan 10 ml 11/10/17 22:53 11/14/17 17:48 Robitussin Dm PO 10 ml Q4H PRN Administration Cough /Congestion Guaifenesin/Dextromethorphan 1 tab 11/13/17 21:00 11/19/17 08:50 Mucinex Dm PO 1 tab BID RODRIGO Administration Heparin Sodium (Porcine) 5,000 units 11/11/17 17:00 11/19/17 08:50 Heparin Sq SQ 5,000 units Q8HR RODRIGO Administration Albumin Human 12.5 g/ IV 50 mls @ 50 mls/hr 11/09/17 23:59 11/10/17 02:07 Solution IV 11/10/17 00:58 Infused O ONE Infusion Bumetanide 25 mg/ IV Solution 100 mls @ 2 mls/hr 11/10/17 12:00 11/11/17 10: 30 IV Infused Q24H RODRIGO Infusion Ceftriaxone Sodium 1 g/ Sodium 100 mls @ 200 mls/hr 11/10/17 16:15 11/10/17 17:55 Chloride IV Infused Q24H RODRIGO Infusion Ceftriaxone Sodium 1 g/ Sodium 50 mls @ 200 mls/hr 11/11/17 09:00 11/13/17 07 :56 Chloride IV Not Given Q24HR RODRIGO Sodium Chloride 500 mls @ 10 mls/hr 11/10/17 21:39 11/12/17 02:02 Normal Saline IV Not Given .Q24H RODRIGO Cefepime HCl 1 gm/ Sodium 50 mls @ 100 mls/hr 11/12/17 09:45 11/19/17 09:52 Chloride IV 100 mls/hr Q12H RODRIGO Administration Vancomycin HCl 1,500 mg/ 500 mls @ 250 mls/hr 11/12/17 10:30 11/13/17 07:56 Sodium Chloride IV 11/12/17 12:29 Infused O ONE Infusion Vancomycin HCl 1,000 mg/ 250 mls @ 250 mls/hr 11/13/17 04:30 11/16/17 21:25 Sodium Chloride IV Not Given Q18H RODRIGO Vancomycin HCl 1,000 mg/ 250 mls @ 250 mls/hr 11/15/17 12:00 11/16/17 07:14 Sodium Chloride IV Infused Q18H RODRIGO Infusion Vancomycin HCl 1,000 mg/ 250 mls @ 250 mls/hr 11/17/17 09:00 11/17/17 11:16 Sodium Chloride IV Infused Q24H RODRIGO Infusion Vancomycin HCl 1,250 mg/ 250 mls @ 200 mls/hr 11/18/17 18:00 11/18/17 19:30 Sodium Chloride IV Infused Q36H RODRIGO Infusion Insulin Human Regular 2 - 8 unit 11/10/17 10:51 11/19/17 15:56 Novolin R SQ 5 unit SS PRN Administration Hyperglycemia Protocol Insulin Human Regular 12 unit 11/10/17 11:00 11/10/17 12:11 Novolin R SQ 11/10/17 11:01 12 unit O ONE Administration Insulin Human Regular 12 unit 11/10/17 16:15 11/10/17 16:40 Novolin R SQ 11/10/17 16:16 12 unit O ONE Administration Lisinopril 2.5 mg 11/16/17 09:15 11/16/17 10:01 Prinivil PO 2.5 mg DAILY RODRIGO Administration Lisinopril 5 mg 11/16/17 15:15 Prinivil PO DAILY RODRIGO Lisinopril 2.5 mg 11/17/17 09:00 11/19/17 08:52 Prinivil PO 2.5 mg DAILY RODRIGO Administration Magnesium Hydroxide 30 ml 11/13/17 11:03 Mom PO DAILY PRN Constipation Menthol 1 lozenge 11/13/17 11:41 11/14/17 15:24 Ricola Sf MM 1 lozenge PRN PRN Administration Cough Metformin HCl 500 mg 11/14/17 10:30 03/18/18 09:42 Glucophage PO 500 mg WB RODRIGO Administration Metformin HCl 500 mg 11/18/17 17:30 11/19/17 08:51 Glucophage PO 500 mg BIDWM RODRIGO Administration Multivitamins 1 tab 11/10/17 14:00 11/19/17 15:57 Total B + C PO 1 tab [id number] RODRIGO Administration Pantoprazole Sodium 20 mg 11/12/17 06:30 11/19/17 06:04 Protonix PO 20 mg ACB RODRIGO Administration Polyethylene Glycol 17 gm 11/13/17 11:03 Miralax PO DAILY PRN Constipation Potassium Chloride 20 meq 11/11/17 09:00 11/11/17 09:30 K-Dur 20 Meq Tablet PO Not Given DAILY RODRIGO Potassium Chloride 20 meq 11/10/17 12:00 11/11/17 09:36 K-Dur 20 Meq Tablet PO 20 meq TIDWM RODRIGO Administration Potassium Chloride 20 meq 11/11/17 17:30 11/19/17 08:51 K-Dur 20 Meq Tablet PO 20 meq BIDWM RODRIGO Administration Potassium Chloride 20 meq 11/13/17 12:30 11/13/17 12:18 K-Dur 20 Meq Tablet PO 11/13/17 12:31 20 meq O ONE Administration Ropinirole HCl 2 mg 11/10/17 09:00 11/10/17 10:33 Requip PO Not Given TID RODRIGO Ropinirole HCl 2 mg 11/10/17 15:00 11/19/17 15:59 Requip PO 2 mg TID RODRIGO Administration Silver Sulfadiazine 1 applic 11/11/17 09:00 11/19/17 08:52 Silvadene TOP 1 applic DAILY RODRIGO Administration Sodium Chloride 10 - 80 ml 11/09/17 21:40 11/19/17 09:53 Iv Flush IVF 10 ml PRN PRN Administration Flushing Sodium Chloride 500 ml 11/16/17 09:34 11/18/17 18:06 Normal Saline IV 500 ml PRN PRN Administration Sotalol HCl 20 mg 11/16/17 09:00 11/16/17 21:25 Betapace PO Not Given DAILY RODRIGO Sotalol HCl 20 mg 11/16/17 16:15 11/18/17 09:43 Betapace PO 20 mg DAILY RODRIGO Administration Tramadol HCl 50 mg 11/10/17 21:00 11/10/17 01:08 Ultram PO 50 mg HS RODRIGO Administration Tramadol HCl 50 mg 11/10/17 21:00 11/18/17 20:09 Ultram PO 50 mg HS RODRIGO Administration Vancomycin HCl 1 each 11/12/17 09:12 11/13/17 07:30 Pharmacy Consult - Vancomycin 11/12/17 09:13 1 each O ONE Administration Results 11/19/17 04:03 11/19/17 04:03 Assessment and Plan - Assessment and Plan (1) Acute on chronic systolic (congestive) heart failure Status: Acute (2) Paroxysmal atrial fibrillation Status: Chronic (3) Essential (primary) hypertension Status: Chronic (4) ICD (implantable cardioverter-defibrillator) in place Status: Chronic (5) Bronchitis Status: Acute (6) Cardiomyopathy Status: Chronic - Attestation Attestation Narrative: 11/21/17 13:05 Recommendation After examining the patient I agree with the above assessment. I am involved in the formulation of the patient's plan of care. Hospital Course Summary Disclaimer: The visit summary below is not to be considered part of the above Progress Note.
--- NOTE | 2017-11-19 20:49 | Discharge Summary ---
Discharge Information Date of admission: 11/09/17 23:23 Anticipated date of discharge: 11/19/17 Attending Physician: Mariah Bates MD Primary care physician: Shawn Hill DO Consults: Jonathan Lawrence M.D. - Discharge Diagnosis (1) Acute on chronic systolic (congestive) heart failure Status: Acute (2) Bronchitis Status: Acute Acute on chronic non-ischemic systolic heart failure Bronchitis/COPD exacerbation-MRSA and Pseudomonas Aeruginosa in Sputum C/S Acute kidney injury (POA) - resolved Hypernatremia (POA) - resolved Nonsustained ventricular tachycardia Thrush (not POA) Severe cardiomyopathy - nonischemic Atrial fibrillation - HTN COPD JEANNA on CPAP Type II diabetes Stage III CKD Restless Leg Syndrome Parkinson's disease Bronchiectasis - Laboratory Labs: On admission white count was 8.8 with hemoglobin 11.9; sodium 147, BUN 53, creatinine 1.9, and proBNP 34,600 11/19/17 04:03 11/19/17 04:03 - Microbiology Microbiology 11/10/17 01:25 Sputum, Expectorated Gram Stain - Final 11/10/17 01:25 Sputum, Expectorated Sputum Culture - Final Staphylococcus aureus, MRSA Pseudomonas aeruginosa Normal Respiratory Yue - Radiology Radiology: Chest x-ray on admission demonstrated mild congestive heart failure and COPD/ emphysema. Follow-up chest x-ray on 11/11 demonstrated improving failure and final film on demonstrated no acute cardiopulmonary disease. History of Present Illness HPI: 77 yo M with PMH of COPD and CHF presented to the ED with reports of productive cough and SOA. Pt tells me this has been coming on ever since he had his teeth pulled 3 weeks ago. He had 5 teeth out and 3 were "infected". He states he has had progressive SOA with cough since then. He has been coughing up yellow sputum. Patient was seen in the emergency room earlier in the week on 11/06. He was given nebulizer treatments and discharged home. He did see Dr. Lawrence on Tuesday 11/07. At that time Cardizem and Bumex doses were both increased. Since that time, his breathing has worsened. He presented back to the ED and was found to have a fever. He was subsequently admitted for further eval. When seen by me he appears comfortable. His appears euvolemic. He denies fevers or chills but states his room is cold. He coughed up some phlegm yesterday but none so far today. He is breathing much better than when he came in. He is on RA. He has "dizziness" that is not new and comes and goes. He describes it as off balance. No lightheadedness. No Chest pain or palp. No N/V/D/C. No m/h. No complaints. No edema. He reports today it is better than usual. Objective Vital signs: Temperature 95.4 F L 11/19/17 15:05 Pulse Rate 50 L 11/19/17 15:05 Respiratory Rate 18 11/19/17 15:05 Blood Pressure 121/62 11/19/17 15:05 Pulse Oximetry 93 11/19/17 15:05 NAD, alert Respirations nonlabored, decreased breath sounds throughout but no wheezing, rhonchi, or crackles No lower extremity edema Rhythm: Atrial Fibrillation with Normal Ventricular Rate Height/Weight/BMI: Hospital Course This is a general summary of the patient's hospital course. For more details refer to the complete medical record. Hospital course: 11/10 hospital admission Admitted with acute on chronic systolic heart failure and bronchitis with possible COPD exacerbation. Antibiotics initiated with azithromycin and ceftriaxone. Dr. Lawrence consulted, Bumex drip initiated. Coreg resumed with the addition of diltiazem for tachycardia. The patient received digoxin on admission for tachycardia. Fluid restriction placed. 11/11 Continue current care; chest x-ray with mild improvement in central vascular congestion. 11/12 Discontinue Rocephin and Azithromycin. Start Cefepime and Vanco for better coverage of MRSA and Pseudomonas in sputum C/S Overall weight is trending down with diuretics. Bumex drip was stopped and he is currently on normal home regimen. Weight trending down. Appreciate cardiac consultation- Continues on Coreg and Cardizem Continue with scheduled nebulizers and acapella Overall BGMs have been well controlled Heparin subcutaneous for DVT prophylaxis 11/13 Continue cefepime and vancomycin for coverage of MRSA and Pseudomonas in sputum C/S-day #2. Will change Mucinex to Mucinex DM to help cough - add prn Tessalon Perles and Ricola. Continue with Neb Treatments. Potassium decreased to 3.4 - will give 20mEq KCl today at noon. Creatinine decreased to 1.3. Consult PT/OT to help increase functional status. Blood sugars showing increase. Continue ISS. Hold metformin for down due to resolving acute heart failure. Possible restart home lisinopril soon - creatinine improving and BP showing elevation to 130 to 140 systolic. Diltiazem CD 120 mg daily resumed for rate control-home dose. 11/14 Continue cefepime and vancomycin for coverage of MRSA and Pseudomonas in sputum C/S - Day #3 of antibiotics. Continue Mucinex DM for cough with Tessalon Perles and Ricola. Continue with Neb Treatments. Unable to give steroids due to allergies. Hypokalemia resolved. Renal function continues to improve. Fast blood sugar improved and stable. Daytime sugars remain >200. Will restart home Metformin 500mg daily and continue to monitor blood sugars closely. SSI available. Blood pressure well controlled. Will continue to hold lisinopril and monitor pressures closely. 11/15 Continue cefepime and vancomycin for coverage of MRSA and Pseudomonas in sputum C/S - Day #4 of antibiotics. Continue DuoNeb and Pulmicort breathing txs and acapella. BS's acceptable. Diamox 500mg po x1 today as CO2 elevated. Bumex increased to 2 mg 3 times a day and fluid restriction tightened to 1500 mL daily. 11/16 Continue cefepime and vancomycin for coverage of MRSA and Pseudomonas in sputum C/S - Day #5 of antibiotics. Cardiology increased Bumex to TID yesterday for "gentle diuresis." Patient is on 1500 mL fluid restriction. No labs drawn today. BMP ordered now to follow renal function and electrolytes. Chest x-ray yesterday reported resolution of pulmonary vascular congestion. Thrush present - start Mycelex for treatment. Cardiology started Sotalol 20mg daily due to increased episodes of NSVT. Lisinopril restated by Hospitalist, but cardiology increased to 5mg -- will decrease back to 2.5mg daily. 11/17 Continue cefepime and vancomycin for coverage of MRSA and Pseudomonas in sputum C/S - Day #6 of antibiotics. Renal function with slight increase, creatinine up to 1.5. He continues on Bumex 2 mg PO TID per Dr. Lawrence. If renal function continues to decline, we' ll need to adjust the dose or hold Bumex. Weight is trending down. BP under good control. BG with at least 1 daily reading >200. If renal function remains stable, could consider increasing Metformin to BID. 11/18 Cefepime/Vanco d#7. Bronchiectasis. Multiple medication allergies make care needs more complex. HF- continue Coreg, Lisinopril. Decreased Bumex to BID. He is now bradycardic- on Coreg, Cardizem, Sotalol. BG remains variable. 11/19 Cefepime/Vanco d#8. DC antibiotics today. Both Pseudomonas and MRSA have been present in sputum cultures on multiple occasions-likely chronically colonized due to underlying bronchiectasis. Bumex was decreased to BID yesterday given increase of SCr. Discussed with cardiology. Recommend continuing him on the Bumex twice a day as this is his home dose and he will be drinking more home. Continue sotalol at 20 mg daily to suppress ventricular arrhythmias; patient has an underlying pacemaker to prevent significant bradycardia. He remains on Coreg and Cardizem. Patient is not anticoagulated for atrial fibrillation due to history of severe GI bleeding. Have recommended the patient have electrolytes/renal function reassessed in 2-3 days due to slight elevation present today. Additionally have asked patient to monitor his weight daily-discharge weight 144 pounds. DC home today with home health. Time spent with patient: discharge greater than 30 minutes Resuscitation Status: Full Code Discharge Plan - Discharge Disposition Discharge Date: 11/19/17 Disposition: 01 Discharged Home, Self-Care *Condition: Stable Reason For Visit (Visit label in EMR): CHF exacerbation - Discharge Medications *Discharge Medications: New Carvedilol [Coreg] 25 mg PO BIDWM tab Clotrimazole Sukhi [Mycelex Sukhi] 10 mg MM 5XD #35 sukhi Sotalol [Betapace] 20 mg PO DAILY #15 tab Benzonatate [Tessalon Perles] 100 mg PO TID PRN #20 cap PRN Reason: Cough Continue Acetaminophen [Arthritis Pain Relief] 1,300 mg PO BID PRN PRN Reason: Pain B-Complex with Vitamin C [Super B with Vit C] 1 cap PO [id number] Docusate Sodium [Colace] 200 mg PO HS Bumetanide Tab [Bumex 1 mg Tab] 2 mg PO BID Silver Sulfadiazine [Silvadene] 1 applicatio TP DAILY Tramadol [Ultram] 50 mg PO HS Carbidopa/Levodopa [Carbidopa-Levodopa 25-100 Tab] 1 tab PO TID Ropinirole [Requip] 2 mg PO TID Potassium Chloride [K-DUR 20 mEq Tablet] 20 meq PO DAILY dilTIAZem HCl [Diltiazem ER] 120 mg PO DAILY Naphazoline HCl/Pheniramine [Opcon-A Eye Drops] 15 ml OP PRN PRN Reason: Dry Eyes Albuterol Sulfate [Proair Hfa] 2 puff IH Q6H PRN #0 PRN Reason: SHORTNESS OF AIR Gabapentin 600 mg PO HS #0 Metformin [Glucophage] 500 mg PO DAILY Albuterol Neb (0.083%) [Proventil Neb (0.083%)] 2.5 mg AEROSOL PRN PRN PRN Reason: Shortness Of Air Carvedilol 25 mg PO BID Lisinopril [Prinivil] 2.5 mg PO DAILY - Discharge Packet/Instructions *Diet: Diabetic, low-salt, limit fluid intake to no more than 2 L daily *Activity: As tolerates *Pain Management/Treatment: Arthritis strength Tylenol 2 tablets twice daily if needed *Wound Care: Not applicable Additional Instructions: Hold metformin until blood work is reevaluated or you see Dr. Hill and are instructed to resume it. Blood work should be checked in 2-3 days to see how your kidney tests and potassium are. Continue Chlortrimazole troches 5 times a day-dissolve on your tongue, for one week. Dr. Lawrence started you on sotalol 20 mg daily-take 1/4th of an 80 mg tablet each day. Continue bumetanide at 2 pills twice a day. Check your weight daily and notify your physician if it increases by more than 3 pounds a day or 5 pounds in a week. Your weight at discharge is 144 pounds. *Expected Signs/Symptoms: Some cough expected, if worsens or began retaining fluid please notify your doctor *Notify Physician if: As above *During Business Hours Contact: Dr. Hill or Dr. Lawrence's offices *After Business Hours Contact: Call [facility] at [phone] and ask that the on-call physician be paged *Pending Lab/Results: No Pending Lab - Referrals/Follow Up *Referrals/Follow Up: Jonathan Lawrence MD [Physician] - 1 Month (Or as previously scheduled CALL AND SCHEDULE OR CONFIRM APPOINTMENT WITH DR. LAWRENCE TO BE SEEN IN 1 MONTH ) Shawn Hill DO [Family Provider] - (Within one week, and have lab work done later this week APPOINTMENT WITH DR. HILL ON 11/27/2017 AT 8:30 AM HAVE LAB DRAWN ON 11/22/2017 (TAKE SCRIPT) OFFICE NUMBER [phone]) - Patient Handouts - Dismissal Complete Discharge Instructions are:: Complete Physician Narrative - Narrative Attestation Narrative: Date: 11/19/17 Time: 2044
== END 2017-11-19 17:25 | disposition home health service (06) | DRG 291 ==
LOC: ED 21:19 → SUATTDRO 23:23 → MED 23:23
PROVIDERS: ADMIT Internal Medicine; ATTEND Internal Medicine